=== PATIENT | female | born 1960 | race Caucasian/White ===

== ENCOUNTER 2016-07-10 11:26 | Inpatient (IN) ==
[2016-07-10] MEDS ORDERED: DUONEB (A & A) INH ONE ×2 (12:03→12:04)
[2016-07-10] MEDS ORDERED: SOLU-MEDROL IV ONE (12:10)
[2016-07-10] MEDS ORDERED: LASIX IV ONE (12:51)
--- NOTE | 2016-07-10 12:55 | PROVIDER DOCUMENTATION ---
HPI-Cardiac General - General Chief Complaint: Cough Stated Complaint: COUGH Time Seen by Provider: 07/10/16 11:41 Source: patient Allergies/Adverse Reactions: Patient Allergies Allergy/AdvReac Type Severity Reaction Status Date / Time levofloxacin [From Levaquin] Allergy Intermediate RASH Verified 07/10/16 11:51 NSAIDS (Non-Steroidal Allergy Unknown Unknown Verified 07/10/16 11:51 Anti-Inflamma morphine AdvReac Mild HENSLEY Verified 07/10/16 11:51 Home Medications: Carvedilol 12.5 mg PO BID 03/11/14 Clopidogrel Bisulfate [Clopidogrel] 75 mg PO DAILY 03/11/14 Isosorbide Mononitrate [Imdur] 30 mg PO QHS 03/11/14 Pantoprazole [Protonix] 40 mg PO QHS 03/11/14 ENALApril [Vasotec] 10 mg PO QHS 07/20/14 ATORVAstatin [Lipitor] 80 mg PO QHS 08/14/15 Clonazepam [Klonopin] 1 mg PO TID 08/15/15 Furosemide [Lasix] 20 mg PO DAILY 08/15/15 Albuterol 2.5MG/Ipratrop 0.5MG [Duoneb (A & A)] 3 ml INH TID 11/14/15 Warfarin [Coumadin] 5 mg PO QHS 11/14/15 - History of Present Illness-Cardiac Nature of Presenting Problem: 55 yo WF brought by EMS with marked SOB , wheezing, and and orthopnea. PMH significant for 2-3 ppd smoking, IHD and CHF Location: reports: substernal Quality of Pain: reports: none Severity in ED: severe Onset/Duration: 4-6 hours ago Timing: still present Context/Activities at Onset: reports: none Modifying Factors: improves with: nothing History of arrythmia: reports: none Prior Chest Pain/Cardiac Workup: reports: echocardiography. denies: pulmonary embolism, stress test Associated Symptoms: reports: shortness of breath. denies: abdominal pain, back pain, diaphoresis, edema, fever/chills, nausea Similar Symptoms Previously?: Yes Recently Seen Here or By Another Healthcare Provider: Yes (Placed on Cipro 3 days) Review of Systems - Adult - REVIEW OF SYSTEMS - ADULT Constitutional: reports: fatique Eyes: reports: no symptoms reported Ears, Nose, Mouth & Throat: reports: no symptoms reported Cardiovascular: reports: see HPI Respiratory: reports: see HPI Gastrointestinal: reports: no symptoms reported Genitourinary: reports: no symptoms reported Musculoskeletal: reports: no symptoms reported Integumentary: reports: no symptoms reported Neurological: reports: no symptoms reported Psychiatric: reports: no symptoms reported Endocrine: reports: no symptoms reported Hematologic/Lymphatic: reports: no symptoms reported Allergic/Immunologic: reports: no symptoms reported Past History - Adult - PAST MEDICAL HISTORY-ADULT Major Childhood Illnesses: reports: denies history Cardiovascular: reports: CHF, HTN, hyperlipidemia, [place] Respiratory: reports: asthma, COPD, sleep apnea Gastrointestinal: reports: GERD Obstetrical/Gynecological: reports: denies history Genitourinary: reports: denies history Musculoskeletal: reports: chronic pain (back) Neurological: reports: CVA Psychiatric: reports: anxiety Endocrine/Immune: reports: denies history Other Conditions: reports: denies history - PRIOR SURGERIES/PROCEDURES Surgical/Procedure History: reports: appendectomy, cholecystectomy, other ( carotid artery Sx. renal stent) - PRIOR HOSPITALIZATIONS Prior Hospitalizations: reports: for similar symptoms - IMMUNIZATION STATUS Childhood Immunizations: See Nurse Assessment Flu Vaccine: See Nurse Assessment - FAMILY HISTORY Family History: reviewed, not pertinent Physical Exam-General - PHYSICAL EXAM-ADULT Initial Vital Signs Reviewed: Yes - CONSTITUTIONAL General Appearance: severe distress, obese - EYES Eyes: PERRL/EOMI - HEAD, EARS, NOSE, MOUTH & THROAT HENMT: normocephalic/atraumatic, moist mucous membranes - NECK Neck: non-tender, full range of motion - RESPIRATORY Respiratory: chest non-tender, respiratory distress, rales, wheezing. negative : normal breath sounds - CARDIOVASCULAR Cardiovascular: normal peripheral pulses, regular rate, rhythm - CHEST (BREASTS) Chest/Breast: deferred - GASTROINTESTINAL (ABDOMEN) Abdominal Exam: normal bowel sounds, non tender - GENITOURINARY Female Genitalia/Pelvic Exam: deferred Male Genitalia: deferred Rectal Exam: deferred - LYMPHATIC Lymphatic: no adenopathy - MUSCULOSKELETAL Back Exam: normal inspection Extremity: normal range of motion - SKIN Integumentary: normal color - NEUROLOGIC Neurologic: grossly normal - PSYCHIATRIC Psych/Mental Status: normal mood/affect Departure - Departure Time of Disposition Order: 18:05 DIAGNOSIS: Tobacco abuse, Hypoxemia Respiratory failure with hypercapnia Qualifiers: Chronicity: acute on chronic Qualified Code(s): J96.22 - Acute and chronic respiratory failure with hypercapnia Disposition: ADMITTED INPATIENT 09 Certified Medical Emergency: Emergent Condition: Fair
[2016-07-10 12:56] LABS: MANUAL DIFF NEEDED? NO
[2016-07-10 13:07] LABS: BASO% 0.2 % (0.0-0.8); EOS# 0.08 X1000 (0.0-0.7); EOS% 0.7 % (0.0-10.0); HEMATOCRIT 42.5 % (37.0-47.0); HEMOGLOBIN 13.2 g/dL (12.0-16.0); LYMPH# 1.11 X1000 (1.2-3.4); LYMPH% 9.9 % (20.5-51.1); MCH 29.5 PG (27-31); MCHC 31.1 g/dL (33-37); MCV 94.9 FL (81-99); MONO# 0.75 X1000 (0.11-0.59); MONO% 6.7 % (1.7-9.3); MPV 11.6 FL (7.4-10.4); NEUT% 82.5 % (42.2-75.2); PLT 196 X1000 (130-400); RBC 4.48 XMIL (4.2-5.4)
[2016-07-10 13:19] LABS: AGAP 13; BUN 11 mg/dL (8-22); CALCIUM 9.2 mg/dL (8.8-10.2); CHLORIDE 100 mmol/L (98-107); COSMO 279; POTASSIUM 4.5 mmol/L (3.5-5.1); SODIUM 140 mmol/L (136-145); TCO2 27 mmol/L (25-35)
[2016-07-10] MEDS ORDERED: ROCEPHIN 2 GM/NS 50 ML IV ONE (14:01)
[2016-07-10] MEDS ORDERED: ZITHROMAX 500 MG/NS 250 ML IV SCH (14:15)
[2016-07-10] MEDS ORDERED: ZITHROMAX 500 MG/NS 250 ML IV ONE (15:00)
--- NOTE | 2016-07-10 15:00 | HISTORY AND PHYSICAL ---
HISTORY OF PRESENT ILLNESS: Ms. Gregory has a history of COPD on home O2 that she has been on for several years, a long history of tobacco. She has coronary artery disease and apparently has had 2 myocardial infarctions. She says she has had 3 strokes, but no residuals. Denies diabetes. Gives history of hypertension, hypercholesterolemia. No surgical history that she reports. She appears to have history of anxiety. Looking back at old records, she apparently has obstructive sleep apnea as well and has had a sleep study. ALLERGIES: She is allergic to quinolones, which cause a rash. FAMILY HISTORY: Both her mother and father apparently had emphysema. Does not drink alcohol. She smokes, but has recently quit. REVIEW OF SYSTEMS: General: She has intensely lost weight this year. Reports that the last 3 days she has had increased shortness of breath, increased wheezing and feels like she has had fever and chills. HEENT: Unremarkable. Respiratory: As above. On home O2, but these last 3 days have been worse. Cardiovascular: She feels like she has had some swelling in her feet. Feels like she has some increased orthopnea. She was breathing fairly comfortably laying on her side. GI/: No complaints. Endocrinologic/Hematologic: No history of complaints. PHYSICAL EXAM: VITAL SIGNS: Today in the emergency room temperature 98.2 degrees, pulse 106, respirations 20, blood pressure 155/91. CVP was about 8 cm water pressure. I did not appreciate hepatojugular reflux. LUNGS: With end expiratory wheezing throughout the lung acosta. Prolonged expiratory phase. CARDIOVASCULAR EXAM: Regular rhythm and rate without murmur or S3. PMI nondisplaced. ABDOMEN: Soft, nontender, nondistended. SKIN: Warm and dry. She has some areas of sores that appear consistent with prurigo and old places that healed on her arms. LABS: White count 11,240, hematocrit 42, platelet count 196,000. Sodium 140, potassium 4.5, chloride 100, bicarbonate 27, BUN 11, creatinine 0.8, calcium 9.2. ProBNP was 2605. X-RAYS: Chest x-ray with evidence of COPD. There is a question whether there is an infiltrate. Can see some interstitial thickening. Question whether there is a right lower lobe infiltrate as well. ASSESSMENT AND PLAN: 1. Chronic obstructive pulmonary disease exacerbation. Bronchitis. Possible pneumonia. So, will treat for bronchial pneumonia. We will put her on some Solu-Medrol. We will use Rocephin and azithromycin. Will put her on nebulized breathing treatments, as well as steroid inhaler. 2. History of underlying coronary artery disease. Aware. I have looked at old studies. I have had a pulmonary arteriogram done in October 2013 with chronic obstructive pulmonary disease. At that time had some atelectasis in left lower lobe. She has had an echocardiogram done in August 2015 and normal left ventricular size. Ejection fraction was 40% to 45%. The mitral valve and tricuspid valve were okay. Aortic valve looked okay, so no valvular dysfunction. Did not see any evidence of right ventricular hypertension. 3. She has had some cerebrovascular accidents in the past. No residual. 4. Hypertension. Note that even though the proBNP is elevated, this appears to be more consistent with bronchospasm than bronchitis with exacerbation of chronic obstructive pulmonary disease. MEDICATIONS: Review of medications from home: She is on atorvastatin 80 mg at bedtime. She takes DuoNebs, carvedilol 12.5 p.o. b.i.d., Klonopin 1 mg t.i.d., Plavix 75 mg a day, Vasotec 10 mg at bedtime, Lasix 20 mg daily, hydrocodone 10/325 q. 6 hours p.r.n., isosorbide mononitrate 30 mg at bedtime, Protonix 40 mg at bedtime, and Coumadin 5 mg at bedtime. I am not sure of the reason of Coumadin; possibly history of deep venous thrombosis, but she also could have underlying history of atrial fibrillation. She is also on Plavix. So, we will check her pro time, continue to follow and continue the Coumadin.
--- NOTE | 2016-07-10 15:11 | Diag Imaging Result Document ---
PROCEDURE NAME: CHEST-PORTABLE - 07/10/2016 SINGLE FRONTAL RADIOGRAPH OF THE CHEST: COMPARISON: 03/28/2016. FINDINGS: There is diffuse infiltrate throughout the left lung and milder infiltrate at the right lung base likely representing interstitial edema with or without pneumonia. There is no definite pleural fluid collection. Cardiac silhouette is stable. IMPRESSION: Bilateral predominantly interstitial consolidations, more prominent on the left.
[2016-07-10] MEDS ORDERED: ZOFRAN IV PRN (15:59)
[2016-07-10] MEDS: XOPENEX NEB INH SCH ×3 (15:59→22:45)
[2016-07-10] MEDS ORDERED: TYLENOL PO PRN (15:59)
[2016-07-10] MEDS ORDERED: LOVENOX SUBQ SCH (15:59)
[2016-07-10] MEDS: KLONOPIN PO SCH (16:58)
[2016-07-10] MEDS: NICODERM PATCH TD SCH (17:07)
[2016-07-10 17:53] LABS: INR 3.76; PROTIME 40.4 Seconds (9.2-11.7)
[2016-07-10] MEDS ORDERED: MAGNESIUM SULFATE 2 GM/S.W.I. 50 ML IV ONE (18:31)
[2016-07-10] MEDS: ADVAIR 250/50 DISKUS INH SCH (20:09)
[2016-07-10] MEDS: SOLU-MEDROL IV SCH (20:48)
[2016-07-10] MEDS: IMDUR PO SCH (20:48)
[2016-07-10] MEDS: PROTONIX PO SCH (20:49)
[2016-07-10] MEDS: LIPITOR PO SCH (20:49)
[2016-07-10] MEDS: COREG PO SCH (20:49)
[2016-07-10] MEDS: VASOTEC PO SCH (20:49)
[2016-07-10] MEDS ORDERED: COUMADIN PO SCH (21:00)
[2016-07-11] MEDS: NORCO-10 PO PRN ×3 (00:51→22:09)
[2016-07-11] MEDS: XOPENEX NEB INH SCH ×6 (03:54→22:48)
[2016-07-11] MEDS: SOLU-MEDROL IV SCH ×3 (05:07→22:02)
[2016-07-11 05:14] LABS: ALLEN TEST YES; BE 5.1 mmoll (-3.0-3.0); BLOOD TYPE ARTERIAL; DRAW SITE R RADIAL; METHB 1.2 % (0.0-1.5); O2(CT) 12.1 mL/dL (15.0-23.0); PCO2(98.6) 48 mmHg (35-45); PO2(98.6) 76 mmHg (60-100); SAMPLE BLOOD; SAO2 96.2 % (95.0-100.0); THB 9.1 g/dL (11.5-17.4); pH(98.6) 7.41 (7.35-7.45)
[2016-07-11 05:18] LABS: MODALITY CANNULA
[2016-07-11] MEDS: PROTONIX PO SCH ×2 (06:44→22:03)
[2016-07-11 06:50] LABS: HEMATOCRIT 37.1 % (37.0-47.0); HEMOGLOBIN 11.5 g/dL (12.0-16.0); IMM GRAN# 0.03 X1000 (0.0-0.04); IMM GRAN% 0.3 % (0.0-0.5); LYMPH# 0.68 X1000 (1.2-3.4); LYMPH% 6.6 % (20.5-51.1); MANUAL DIFF NEEDED? YES; MCH 28.8 PG (27-31); MCV 92.8 FL (81-99); MONO# 0.17 X1000 (0.11-0.59); MONO% 1.6 % (1.7-9.3); MPV 11.2 FL (7.4-10.4); NEUT% 91.5 % (42.2-75.2); PLT 229 X1000 (130-400)
[2016-07-11 07:05] LABS: AGAP 13; ALBUMIN 3.2 g/dL (3.5-5.0); ALKALINE PHOSPHATASE 70 U/L (32-104); BUN 14 mg/dL (8-22); CHLORIDE 101 mmol/L (98-107); COSMO 282; GOT 8 U/L (10-30); GPT 6 U/L (10-36); INR 2.79; MAGNESIUM 1.8 mg/dL (1.5-2.7); POTASSIUM 4.2 mmol/L (3.5-5.1); PROTIME 29.9 Seconds (9.2-11.7); SODIUM 139 mmol/L (136-145); TCO2 25 mmol/L (25-35); TOTAL BILIRUBIN 0.44 mg/dL (0.20-1.00); TOTAL PROTEIN 6.9 g/dL (6.3-8.3)
[2016-07-11 07:23] LABS: FREE T4 1.12 ng/dL (0.93-1.70)
[2016-07-11 07:30] LABS: BANDS 1 % (0-1); LYMPHS 6 % (21-51); MONO 2 % (1-9)
[2016-07-11] MEDS: ADVAIR 250/50 DISKUS INH SCH ×2 (08:11→19:41)
[2016-07-11] MEDS: PLAVIX PO SCH (08:39)
[2016-07-11] MEDS: KLONOPIN PO SCH ×3 (08:39→16:31)
[2016-07-11] MEDS: COREG PO SCH ×2 (08:39→22:03)
[2016-07-11] MEDS: LASIX PO SCH (08:39)
[2016-07-11] MEDS: NICODERM PATCH TD SCH (08:39)
[2016-07-11] MEDS ORDERED: ROCEPHIN 1 GM/NS 50 ML IV SCH (14:15)
[2016-07-11] MEDS ORDERED: ZITHROMAX 500 MG/NS 250 ML IV SCH (15:00)
[2016-07-11] MEDS ORDERED: LEVAQUIN 750 MG/D5W 150 ML IV SCH (16:00)
--- NOTE | 2016-07-11 16:13 | PROGRESS NOTE ---
DATE: 07/11/2016 SUBJECTIVE: The patient states that she is feeling better, but she is still with mild shortness of breath. OBJECTIVE: Vital Signs: Temperature 97.6 degrees, pulse 84, respiratory rate 20, blood pressure 104/48, oxygen saturation 94% on nasal cannula. HEENT: Head normocephalic. No trauma. PERRLA. Neck: Supple. No JVD. No masses. Cardiovascular: RRR. No murmurs. No gallops. No rubs. Chest: Decreased breath sounds globally. She has rales bilaterally at the bases. Scattered end expiratory wheezing and prolonged expiratory phase. Abdomen: Soft, nontender, nondistended. Obese. Skin: Warm and dry. No lesions. Neurological examination: Alert and oriented x3. No focal lesions. LABORATORY: WBC 10, hemoglobin 11.5, hematocrit 37.1, platelets 229. Sodium 139, potassium 4.2, chloride 101, bicarbonate 25, BUN 14, creatinine 0.7, glucose 166. Calcium 9, phosphorus 2.9, magnesium 1.8, albumin 3.2. ASSESSMENT AND PLAN: 1. Chronic obstructive pulmonary disease exacerbation. I am going to continue with nebulizers, continue with steroids and oxygen. Will monitor. 2. Bilateral lower lobe pneumonia. I will continue with ceftriaxone and azithromycin. 3. History of coronary artery disease to monitor. She is not complaining of chest pain at this moment. 4. Congestive heart failure without exacerbation. The last echocardiogram showed an ejection fraction of 40% to 45%. Will monitor. 5. Questionable cerebrovascular accident in the past, no residual lesions. We will monitor. 6. Hypertension. The blood pressure is within the normal limits. We will monitor. This patient is doing a little bit better, we will continue for now with the same treatment, I will add warfarin to her medications (she is on 5 daily). We will monitor the INR.
--- NOTE | 2016-07-11 19:56 | Diag Imaging Result Document ---
PROCEDURE NAME: CHEST-2 VIEWS - 07/11/2016 CHEST 2 VIEWS: COMPARISON: Compared with portable exam of 07/10/2016. FINDINGS: Heart size appears upper normal and stable. There has been mild increase in infiltrate at right base. There has been interval decrease in infiltrates elsewhere. There is some residual ill-defined infiltrate at the mid and lower lung on the left. There is no substantial pleural effusion or pneumothorax identified. IMPRESSION: Mild increase in infiltrate at right base. Decrease in infiltrates elsewhere.
[2016-07-11] MEDS ORDERED: COUMADIN PO SCH (21:00)
[2016-07-11] MEDS: VASOTEC PO SCH (22:03)
[2016-07-11] MEDS: IMDUR PO SCH (22:03)
[2016-07-11] MEDS: LIPITOR PO SCH (22:03)
[2016-07-12] MEDS: SOLU-MEDROL IV SCH (03:27)
[2016-07-12] MEDS: XOPENEX NEB INH SCH ×2 (04:15→07:46)
[2016-07-12] MEDS: NORCO-10 PO PRN (06:19)
[2016-07-12] MEDS: PROTONIX PO SCH (06:19)
[2016-07-12 07:37] LABS: HEMATOCRIT 38.3 % (37.0-47.0); IMM GRAN# 0.03 X1000 (0.0-0.04); IMM GRAN% 0.2 % (0.0-0.5); INR 2.75; LYMPH# 0.96 X1000 (1.2-3.4); MANUAL DIFF NEEDED? YES; MCH 29.1 PG (27-31); MCHC 31.3 g/dL (33-37); MONO# 0.49 X1000 (0.11-0.59); MONO% 3.1 % (1.7-9.3); NEUT% 90.7 % (42.2-75.2); PLT 291 X1000 (130-400); PROTIME 29.4 Seconds (9.2-11.7); RBC 4.12 XMIL (4.2-5.4)
[2016-07-12 07:46] VITALS: BP 135/51
[2016-07-12] MEDS: ADVAIR 250/50 DISKUS INH SCH (07:46)
[2016-07-12 07:51] LABS: AGAP 16; BUN 23 mg/dL (8-22); CALCIUM 9.4 mg/dL (8.8-10.2); CHLORIDE 96 mmol/L (98-107); COSMO 280; POTASSIUM 4.4 mmol/L (3.5-5.1); SODIUM 136 mmol/L (136-145); TCO2 24 mmol/L (25-35)
[2016-07-12] MEDS ORDERED: ZOSYN 3.375 GM/NS 50 ML IV SCH (08:00)
[2016-07-12 08:34] LABS: BANDS 2 % (0-1); LYMPHS 4 % (21-51); MONO 4 % (1-9)
[2016-07-12] MEDS: PLAVIX PO SCH (09:09)
[2016-07-12] MEDS: KLONOPIN PO SCH (09:09)
[2016-07-12] MEDS: NICODERM PATCH TD SCH ×2 (09:09→09:31)
[2016-07-12] MEDS: COREG PO SCH (09:09)
[2016-07-12] MEDS: LASIX PO SCH (09:09)
--- NOTE | 2016-07-12 18:10 | DISCHARGE SUMMARY ---
ADMISSION DATE: 07/10/2016 DISCHARGE DATE: 07/12/2016 SUBJECTIVE: I received a call from the nurse stating that stating that this patient wants to go against medical advice. The nurse told me that even though she explained the risks of doing that she decided to go home. When I went to the room this patient was already done. Vital signs at 7:46 a.m. temperature 97.9 degrees, pulse 70, respiratory rate 22, blood pressure 135/51. O2 saturation 98 on room air. LABORATORY: WBC 15.8, hemoglobin 12, hematocrit 38.3. Platelet 291,000. Sodium 136, potassium 4.4, chloride 96, bicarbonate 24, BUN 23, creatinine 0.9. Glucose 178. Calcium 9.4. DIAGNOSES: 1. Chronic obstructive pulmonary disease exacerbation. This patient was getting nebulizers, steroids and oxygen. 2. Bilateral lower lobe pneumonia. She was getting antibiotics. 3. History of coronary artery disease. 4. Congestive heart failure without exacerbation. 5. Questionable cerebrovascular accident in the past with no residual lesions. 6. Hypertension. Stable. This patient left AMA. When I had the opportunity to go to the room she already left.
== END 2016-07-12 09:33 | disposition home or self-care (01) | DRG 190 ==
LOC: ED 11:26 → EDIPHOLD 15:03 → 3N 18:16
PROVIDERS: ATTEND Internal Medicine
DX: J44.0 Chronic obstructive pulmonary disease with (acute) lower respiratory infection (principal); J18.9 Pneumonia, unspecified organism; J96.21 Acute and chronic respiratory failure with hypoxia; I11.0 Hypertensive heart disease with heart failure; I50.22 Chronic systolic (congestive) heart failure; Z99.81 Dependence on supplemental oxygen; J96.22 Acute and chronic respiratory failure with hypercapnia; J44.1 Chronic obstructive pulmonary disease with (acute) exacerbation; I25.10 Atherosclerotic heart disease of native coronary artery without angina pectoris; I25.2 Old myocardial infarction; J45.909 Unspecified asthma, uncomplicated; E78.00 Pure hypercholesterolemia, unspecified; K21.9 Gastro-esophageal reflux disease without esophagitis; G47.33 Obstructive sleep apnea (adult) (pediatric); Z79.899 Other long term (current) drug therapy; Z79.02 Long term (current) use of antithrombotics/antiplatelets; Z79.01 Long term (current) use of anticoagulants; Z86.73 Personal history of transient ischemic attack (TIA), and cerebral infarction without residual deficits; Z87.891 Personal history of nicotine dependence
CPT/HCPCS: 71010; 71020; 80048; 80053; 80061; 82607; 82746; 82805; 83036; 83721; 83735; 83880; 84100; 84439; 84443; 85025; 85610; 94640; 94761; 94799; 96365; 96366; 96367; 96372; 96375; J0456; J0696; J1650; J1940; J2930; J3475

== ENCOUNTER 2016-09-02 00:25 | Inpatient (IN) ==
[2016-09-02] MEDS ORDERED: DUONEB (A & A) INH ONE (00:36)
[2016-09-02] MEDS ORDERED: SOLU-MEDROL IV ONE (00:48)
[2016-09-02 00:53] LABS: MANUAL DIFF NEEDED? NO
[2016-09-02 00:56] LABS: BASO% 0.4 % (0.0-0.8); EOS# 0.21 X1000 (0.0-0.7); EOS% 2.2 % (0.0-10.0); HEMATOCRIT 42.8 % (37.0-47.0); HEMOGLOBIN 13.3 g/dL (12.0-16.0); IMM GRAN# 0.03 X1000 (0.0-0.04); IMM GRAN% 0.3 % (0.0-0.5); LYMPH# 1.55 X1000 (1.2-3.4); LYMPH% 15.9 % (20.5-51.1); MCH 29.4 PG (27-31); MCHC 31.1 g/dL (33-37); MCV 94.7 FL (81-99); MONO# 0.54 X1000 (0.11-0.59); MONO% 5.6 % (1.7-9.3); MPV 12.1 FL (7.4-10.4); NEUT% 75.6 % (42.2-75.2); PLT 178 X1000 (130-400); RBC 4.52 XMIL (4.2-5.4)
[2016-09-02 01:16] LABS: CALCIUM 9.1 mg/dL (8.8-10.2); MAGNESIUM 1.5 mg/dL (1.5-2.7); POTASSIUM 3.8 mmol/L (3.5-5.1); TOTAL BILIRUBIN 0.3 mg/dL (0.20-1.00); TOTAL PROTEIN 7.6 g/dL (6.3-8.3)
--- NOTE | 2016-09-02 01:19 | PROVIDER DOCUMENTATION ---
HPI-Respiratory General - General Source: patient <Sabrina Hutton - Last Filed: 09/02/16 02:19> <Domingo García - Last Filed: 09/02/16 02:28> - General Chief Complaint: Shortness of Breath Stated Complaint: shortness of breath Time Seen by Provider: 09/02/16 00:41 Allergies/Adverse Reactions: Patient Allergies Allergy/AdvReac Type Severity Reaction Status Date / Time levofloxacin [From Levaquin] Allergy Intermediate RASH Verified 09/02/16 00:32 NSAIDS (Non-Steroidal Allergy Unknown Unknown Verified 09/02/16 00:32 Anti-Inflamma morphine AdvReac Mild HENSLEY Verified 09/02/16 00:32 Home Medications: Home Medication List Medication Instructions Recorded Confirmed Last Taken Type Carvedilol 12.5 mg PO BID 03/11/14 09/02/16 09/01/16 History Clopidogrel Bisulfate [Clopidogrel] 75 mg PO DAILY 03/11/14 09/02/16 09/01/16 History Isosorbide Mononitrate [Imdur] 30 mg PO QHS 03/11/14 09/02/16 09/01/16 History Pantoprazole [Protonix] 40 mg PO QHS 03/11/14 09/02/16 09/01/16 History ENALApril [Vasotec] 10 mg PO QHS 07/20/14 09/02/16 09/01/16 History ATORVAstatin [Lipitor] 80 mg PO QHS 08/14/15 09/02/16 09/01/16 History Clonazepam [Klonopin] 1 mg PO TID 08/15/15 09/02/16 09/01/16 History Furosemide [Lasix] 20 mg PO DAILY 08/15/15 09/02/16 09/01/16 History Albuterol 2.5MG/Ipratrop 0.5MG 3 ml INH TID 11/14/15 09/02/16 09/02/16 History [Duoneb (A & A)] Warfarin [Coumadin] 5 mg PO QHS 11/14/15 09/02/16 09/01/16 History - History of Present Illness-Resp Nature of Presenting Problem: 55 year old F presents to the ED with a cc of shortness of breath. Pt states that she began noticing it 2 days ago. Pt states that she took all of her medications and breathing treatments with no relief. Pt states she has a hx of COPD. (Sabrina Huttno) Review of Systems - Adult - REVIEW OF SYSTEMS - ADULT Constitutional: reports: see HPI, chills Eyes: reports: no symptoms reported Ears, Nose, Mouth & Throat: reports: no symptoms reported Cardiovascular: denies: chest pain Respiratory: reports: see HPI, cough, shortness of breath, wheezing Gastrointestinal: reports: no symptoms reported Genitourinary: reports: no symptoms reported Musculoskeletal: reports: no symptoms reported Integumentary: reports: no symptoms reported Neurological: reports: no symptoms reported Psychiatric: reports: no symptoms reported Endocrine: reports: no symptoms reported Hematologic/Lymphatic: reports: no symptoms reported Allergic/Immunologic: reports: no symptoms reported All Other Systems: Reviewed and Negative <Domingo García - Last Filed: 09/02/16 02:28> Past History - Adult - PAST MEDICAL HISTORY-ADULT Major Childhood Illnesses: reports: denies history Cardiovascular: reports: CHF, HTN, hyperlipidemia, [place] Respiratory: reports: asthma, COPD, sleep apnea Gastrointestinal: reports: GERD Obstetrical/Gynecological: reports: denies history Genitourinary: reports: denies history Musculoskeletal: reports: chronic pain (back) Neurological: reports: CVA Psychiatric: reports: anxiety Endocrine/Immune: reports: denies history Other Conditions: reports: denies history - PRIOR SURGERIES/PROCEDURES Surgical/Procedure History: reports: appendectomy, cholecystectomy, other ( carotid artery Sx. renal stent) - PRIOR HOSPITALIZATIONS Prior Hospitalizations: reports: for similar symptoms - IMMUNIZATION STATUS Childhood Immunizations: See Nurse Assessment Flu Vaccine: See Nurse Assessment - FAMILY HISTORY Family History: reviewed, not pertinent <Sabrina Hutton - Last Filed: 09/02/16 02:19> - PAST MEDICAL HISTORY-ADULT Review of Records: reports: Old Records Reviewed, Nursing Assessment Review, Medications Reviewed, Social history reviewed & non-contributory. Major Childhood Illnesses: reports: denies history Cardiovascular: reports: CHF Respiratory: reports: COPD, pneumonia <Domingo García - Last Filed: 09/02/16 02:28> Physical Exam-General - PHYSICAL EXAM-ADULT Initial Vital Signs Reviewed: Yes - CONSTITUTIONAL General Appearance: alert, mild distress - RESPIRATORY Respiratory: chest non-tender, decreased breath sounds, rhonchi, wheezing - CARDIOVASCULAR Cardiovascular: normal peripheral pulses, regular rate, rhythm, no edema - GASTROINTESTINAL (ABDOMEN) Abdominal Exam: non tender, soft - MUSCULOSKELETAL Extremity: normal inspection - SKIN Integumentary: normal color, normal turgor, warm/dry - PSYCHIATRIC Psych/Mental Status: normal mood/affect, normal thought content, normal thought process, oriented x 3 <Sabrina Hutton - Last Filed: 09/02/16 02:19> Progress - EKG 1 Time of EKG reading by physician:: 01:06 EKG Read and Signed by:: Domingo García EKG Interpretation (*Must complete 3 of following elements*): Abnormal Rate: 101 Rhythm: sinus tachycardia Kincaid: normal Comments: can not rule out anterior infarct, age undetermined - XRAY 1 XRAY Study: Chest Impression: Abnormal XRAY Interpretation: bilateral lower lobe infiltrates: Dr. García-ER <Sabrina Hutton - Last Filed: 09/02/16 02:19> - CONSULTS/PCP/HOSPITALIST Notification #1 *Consult/PCP/Hospitalist*: Dr. Denis, hospitalist Time Discussed: 02:25 Consult Disposition: Admit <Domingo García - Last Filed: 09/02/16 02:28> Departure <Sabrina Hutton - Last Filed: 09/02/16 02:19> - Departure Time of Disposition Order: 02:27 Certified Medical Emergency: Emergent <Domingo García - Last Filed: 09/02/16 02:28> - Departure DIAGNOSIS: COPD exacerbation, Hypoxemia Bilateral pneumonia Qualifiers: Pneumonia type: due to unspecified organism Lung location: lower lobe of lung Qualified Code(s): J18.9 - Pneumonia, unspecified organism Disposition: ADMITTED INPATIENT 09 Condition: Stable Referrals: None,PCP [Primary Care Provider] - Attestation - Scribe Verification/Attestation Scribe:: Sabrina Hutton Acting as Scribe for:: Domingo García Scribandrés documention review:: This chart was documented by a scribe and accurately reflects the service the provider performed and the decisions made by the provider. <Sabrina Hutton - Last Filed: 09/02/16 02:19> Physician Attestation - Physician Attestation I, the provider, attest to the following statement:: Domingo García Physician documentation Attestation:: This documentation recorded by the scribe accurately reflects the service I personally performed and the decisions made by me. <Sabrina Hutton - Last Filed: 09/02/16 02:19>
[2016-09-02 02:10] LABS: INR 2.95 (0.86-1.15); PROTIME 30.6 Seconds (12.1-15.5)
[2016-09-02 02:11] LABS: PTT PL 44.5 Seconds (22.6-43.9)
[2016-09-02] MEDS ORDERED: NORCO-10 PO ONE (02:16)
[2016-09-02] MEDS ORDERED: ROCEPHIN 1 GM/NS 50 ML IV STA (02:17)
[2016-09-02] MEDS ORDERED: ZOFRAN IV PRN (02:29)
[2016-09-02] MEDS ORDERED: ZITHROMAX 500 MG/NS 250 ML IV ONE (02:30)
--- NOTE | 2016-09-02 05:08 | EKG Report ---
Test Performed on : 09/02/2016 01:06:22 AM Test Reason : CHEST PAIN Blood Pressure : / mmHG Vent. Rate : 101 BPM Atrial Rate : 101 BPM P-R Int : 148 ms QRS Dur : 092 ms QT Int : 358 ms P-R-T Axes : 058 087 018 degrees QTc Int : 464 ms Sinus tachycardia. Cannot rule out Inferior infarct , age undetermined Abnormal ECG When compared with ECG of 27-MAR-2016 15:41, No significant change was found Unconfirmed Result
[2016-09-02] MEDS: DUONEB (A & A) INH SCH ×6 (05:16→22:41)
[2016-09-02] MEDS: MORPHINE IV PRN ×2 (05:32→08:00)
[2016-09-02] MEDS: SOLU-MEDROL IV SCH ×3 (07:56→22:33)
[2016-09-02] MEDS ORDERED: SOLU-MEDROL IV SCH (08:00)
--- NOTE | 2016-09-02 08:21 | Diag Imaging Result Document ---
PROCEDURE NAME: CHEST-2 VIEWS - 09/02/2016 FRONTAL AND LATERAL CHEST, TWO VIEWS: COMPARISON: 07/11/2016. FINDINGS: The lungs are well expanded. The heart is not enlarged. No pleural effusions. There are increased interstitial markings in the mid and lower lungs. These are slightly less pronounced than on the prior study. IMPRESSION: Mild interval improvement.
[2016-09-02] MEDS: PLAVIX PO SCH (16:19)
[2016-09-02] MEDS: DEMEROL IV PRN ×2 (16:28→20:48)
[2016-09-02] MEDS: COREG PO SCH ×2 (19:55→20:10)
[2016-09-02] MEDS: LIPITOR PO SCH ×2 (19:55→20:10)
[2016-09-02] MEDS: PROTONIX PO SCH ×2 (19:55→20:10)
[2016-09-02] MEDS: VASOTEC PO SCH ×2 (19:55→20:10)
[2016-09-02] MEDS: IMDUR PO SCH ×2 (19:55→20:10)
[2016-09-02] MEDS: COUMADIN PO SCH ×2 (19:56→20:10)
--- NOTE | 2016-09-02 21:00 | HISTORY AND PHYSICAL ---
CHIEF COMPLAINT: Shortness of breath for 2 days that had progressively worsened. HISTORY OF PRESENTING ILLNESS: This is a 55-year-old female who presented to [facility] with complaints of shortness of breath for 2 days that had progressively worsened. Her chest x-ray per ER physician interpretation showed bilateral lower lobe infiltrates. She was noted to have an O2 saturation on room air of 84% on arrival. She was placed on 3 L via nasal cannula and is currently saturating 99% but she was admitted for further evaluation and treatment. PAST MEDICAL HISTORY: COPD with home O2 use, coronary artery disease, [place] x2, CVA x3, CHF, GERD, hypertension, hyperlipidemia, anxiety and obstructive sleep apnea. PAST SURGICAL HISTORY: Of an appendectomy, cholecystectomy, carotid artery surgery and a renal stent. FAMILY HISTORY: Her mom and dad both had emphysema. SOCIAL HISTORY: She currently lives with her . Has quit smoking recently but was a pack-a- day smoker prior to that. Denies any alcohol or illicit drug use. ALLERGIES: To Levaquin, NSAIDS and morphine. HOME MEDICATIONS: A and A neb inhalation t.i.d., Klonopin 1 mg p.o. t.i.d. both of those will be held, Lipitor 80 mg p.o. at bedtime, Coreg 12.5 mg p.o. b.i.d., Plavix 75 mg p.o. daily, Vasotec 10 mg p.o. at bedtime, Lasix 20 mg p.o. daily, Imdur 30 mg p.o. at bedtime, Protonix 40 mg p.o. at bedtime and Coumadin 5 mg p.o. at bedtime. LABORATORY DATA: Showed a white blood cell count of 9.72, hemoglobin 13.3, hematocrit 42.8, platelets 178,000. PT and INR of 30.6 and 2.95 with a D-dimer of 0.33. Sodium of 140, potassium 3.8, chloride 99, CO2 28, BUN of 19, creatinine 1, glucose 130, magnesium of 1.5, creatine kinase of 86 with a troponin of less than 0.010, pro BMP of 310. Chest x-ray per ER interpretation showed bilateral lower lobe infiltrate. Radiology read showed mild interval improvement. There are increased interstitial markings in the mid and lower lungs. These are slightly less pronounced than on her prior study. EKG showed sinus tachycardia at 101. REVIEW OF SYSTEMS: She was positive for productive cough, shortness of breath, wheezing. Denied any chest pain, abdominal pain, constipation, diarrhea, burning or hurting with urination. PHYSICAL EXAMINATION: VITAL SIGNS: On arrival she had a temperature of 98.2 degrees, a pulse of 112, respirations 24, blood pressure 176/87 and was saturating 84% on room air. Currently she has a temperature of 98.4 degrees, pulse 75, respirations 18, blood pressure 130/65, saturating 99% via nasal cannula. HEENT: Normocephalic and atraumatic. Pupils are equal, round, and reactive to light. Extraocular movements are intact. The oropharynx and nares are clear. NECK: Supple. LUNGS: With rhonchi and wheezing and decreased breath sounds to bilateral lower lobes, equal lung expansion and chest wall movement noted. HEART: With regular rate and rhythm. No murmurs, rubs, or gallops. ABDOMEN: Soft, nontender, nondistended. Bowel sounds are present x4 quadrants. EXTREMITIES: There is no clubbing, cyanosis or edema. NEUROLOGICAL: The cranial nerves 2-12 are grossly intact. ASSESSMENT: 1. Bilateral lower lobe pneumonia. 2. Acute respiratory failure. 3. An acute chronic obstructive pulmonary disease exacerbation. 4. Hypertension. PLAN: She was admitted to the medical unit at [facility]. Placed on healthy heart diet. Placed on Rocephin 1 gram IV q.24, azithromycin 500 mg IV q.24. We continued her home medications as identified, placed on Solu-Medrol 80 mg IV q.8. She was receiving morphine 2 mg IV q.2 hours p.r.n. but she was becoming oversedated and so we discontinued that. States that she was taking [place] 10 at home and we will verify that with her pharmacy before restarting. Will recheck a CBC, BMP and a PT with INR in the a.m. Dictated by RALPH Bailey for Jermaine Denis MD
[2016-09-03] MEDS: DEMEROL IV PRN ×2 (01:18→08:30)
[2016-09-03] MEDS: ROCEPHIN 1 GM/NS 50 ML IV SCH (02:17)
[2016-09-03] MEDS: ZITHROMAX 500 MG/NS 250 ML IV SCH (02:18)
[2016-09-03] MEDS: DUONEB (A & A) INH SCH ×6 (02:33→22:43)
[2016-09-03] MEDS: SOLU-MEDROL IV SCH ×2 (06:19→17:12)
[2016-09-03 06:21] LABS: BASO% 0.1 % (0.0-0.8); HEMATOCRIT 38.2 % (37.0-47.0); HEMOGLOBIN 11.6 g/dL (12.0-16.0); IMM GRAN# 0.04 X1000 (0.0-0.04); IMM GRAN% 0.3 % (0.0-0.5); LYMPH# 0.73 X1000 (1.2-3.4); MANUAL DIFF NEEDED? YES; MCH 28.6 PG (27-31); MCHC 30.4 g/dL (33-37); MCV 94.1 FL (81-99); MONO# 0.58 X1000 (0.11-0.59); MONO% 4.7 % (1.7-9.3); MPV 12.2 FL (7.4-10.4); NEUT% 88.9 % (42.2-75.2); PLT 180 X1000 (130-400); RBC 4.06 XMIL (4.2-5.4)
[2016-09-03 06:35] LABS: AGAP 11; BUN 20 mg/dL (8-22); CALCIUM 8.8 mg/dL (8.8-10.2); CHLORIDE 102 mmol/L (98-107); COSMO 281; POTASSIUM 4.8 mmol/L (3.5-5.1); SODIUM 138 mmol/L (136-145); TCO2 24 mmol/L (25-35)
[2016-09-03 06:38] LABS: INR 2.08 (0.86-1.15); PROTIME 23.5 Seconds (12.1-15.5)
[2016-09-03 07:18] LABS: LYMPHS 8 % (21-51); MONO 4 % (1-9)
[2016-09-03] MEDS: LASIX PO SCH (08:26)
[2016-09-03] MEDS: PLAVIX PO SCH (08:26)
[2016-09-03] MEDS: COREG PO SCH ×2 (08:27→20:47)
--- NOTE | 2016-09-03 11:21 | PROGRESS NOTE ---
DATE: 09/03/2016 SUBJECTIVE: Patient resting quietly in bed. No complaints voiced at this time. OBJECTIVE: Vital Signs: Temperature 98.0 degrees, pulse 82, respirations 20, blood pressure 108/70, saturating 97% on 2 L via nasal cannula. General: This is a 55-year- old female lying in the bed, resting quietly. HEENT: Normocephalic and atraumatic. Pupils are equal, round, reactive to light. Extraocular movements are intact. Oropharynx and nares are clear. Neck: Supple. Lungs: Clear to auscultation bilaterally with equal lung expansion and chest wall movement. Heart: With regular rate and rhythm. No murmurs, rubs, or gallops. Abdomen: Soft, nontender, nondistended. Bowel sounds are present x4 quadrants. Extremities: There is no clubbing, cyanosis, or edema. Neurological: The cranial nerves 2 through 12 are grossly intact. LABORATORY DATA: Showed a white blood cell count of 12.22, hemoglobin 11.6, hematocrit 38.2, platelets 180,000. PT and INR of 23.5 and 2.08. Sodium of 138, potassium 4.8, chloride 102, CO2 24, BUN of 20, creatinine 0.8, glucose 142. ASSESSMENT: 1. Bilateral lower lobe pneumonia. 2. Acute respiratory failure. 3. Acute chronic obstructive pulmonary disease exacerbation. 4. Hypertension. PLAN: We continue her antibiotics, DuoNeb q.4 hours. We will decrease her Solu -Medrol today to 60 mg IV q.12. We will continue her medication regimen and recheck a CBC, BMP, and an INR in the a.m. DISPOSITION: Likely home in the next 1-2 days. Dictated by RALPH Bailey for Jose Luis Zaragoza MD agree with above, overall improved, still with a lot of pain APENOT MTDD
[2016-09-03] MEDS ORDERED: DILAUDID IV PRN (15:01)
[2016-09-03] MEDS ORDERED: CHLORASEPTIC SPRAY MT PRN ×2 (18:51→18:55)
[2016-09-03] MEDS: IMDUR PO SCH (20:46)
[2016-09-03] MEDS: LIPITOR PO SCH (20:46)
[2016-09-03] MEDS: COUMADIN PO SCH (20:46)
[2016-09-03] MEDS: VASOTEC PO SCH (20:46)
[2016-09-03] MEDS: PROTONIX PO SCH (20:47)
[2016-09-03] MEDS: DILAUDID IV PRN (20:55)
[2016-09-04] MEDS: DILAUDID IV PRN ×6 (00:35→21:15)
[2016-09-04] MEDS ORDERED: NS 1,000 ML ONE (03:00)
[2016-09-04] MEDS: ROCEPHIN 1 GM/NS 50 ML IV SCH (03:07)
[2016-09-04] MEDS: DUONEB (A & A) INH SCH ×6 (03:15→22:43)
[2016-09-04] MEDS ORDERED: NS 500 ML IV SCH (03:45)
[2016-09-04] MEDS: ZITHROMAX 500 MG/NS 250 ML IV SCH (04:28)
[2016-09-04] MEDS: SOLU-MEDROL IV SCH ×2 (06:07→19:18)
[2016-09-04 06:29] LABS: MANUAL DIFF NEEDED? NO
[2016-09-04 06:37] LABS: BASO% 0.1 % (0.0-0.8); HEMATOCRIT 39.1 % (37.0-47.0); HEMOGLOBIN 11.9 g/dL (12.0-16.0); IMM GRAN# 0.04 X1000 (0.0-0.04); IMM GRAN% 0.3 % (0.0-0.5); LYMPH# 1.35 X1000 (1.2-3.4); LYMPH% 11.3 % (20.5-51.1); MCH 28.7 PG (27-31); MCHC 30.4 g/dL (33-37); MCV 94.2 FL (81-99); MONO# 0.48 X1000 (0.11-0.59); MPV 12.2 FL (7.4-10.4); NEUT% 84.3 % (42.2-75.2); PLT 203 X1000 (130-400); RBC 4.15 XMIL (4.2-5.4)
[2016-09-04 06:56] LABS: AGAP 13; BUN 20 mg/dL (8-22); CALCIUM 9.2 mg/dL (8.8-10.2); CHLORIDE 99 mmol/L (98-107); COSMO 278; POTASSIUM 4.6 mmol/L (3.5-5.1); SODIUM 137 mmol/L (136-145); TCO2 25 mmol/L (25-35)
[2016-09-04 07:22] LABS: INR 3.1 (0.86-1.15); PROTIME 31.8 Seconds (12.1-15.5)
[2016-09-04] MEDS: LASIX PO SCH (09:28)
[2016-09-04] MEDS: COREG PO SCH ×2 (09:28→21:14)
[2016-09-04] MEDS: PLAVIX PO SCH (09:28)
--- NOTE | 2016-09-04 19:20 | PROGRESS NOTE ---
DATE: 09/04/2016 SUBJECTIVE: The patient is breathing a little bit better today, coughing less. PHYSICAL EXAMINATION: Vital signs: Blood pressure 142/64, heart rate 81, respiratory rate 18, temperature 98.1 degrees, 97% on 2 L. Cardiovascular: Regular rate and rhythm. Pulmonary: Bilateral breath sounds. Clear to auscultation. Gastrointestinal: Abdomen soft, nontender, nondistended. Bowel sounds are positive. LABORATORY DATA: Basic looks okay. White count 11.9 on steroids. Hemoglobin and hematocrit 11 and 39. Platelets at 203,000. PROBLEM LIST: 1. Chronic obstructive pulmonary disease. Exacerbation appears stabilizing. I am going to wean her steroids, continue breathing treatments and follow. She still has some rhonchi on examination. She is on Rocephin and azithromycin. 2. Atrial fibrillation appears to be well-controlled. INR is slightly elevated so we will adjust down her Coumadin and follow. DISPOSITION: I anticipate tomorrow I think she potentially can go home. We will continue to follow very closely.
[2016-09-04] MEDS ORDERED: COUMADIN PO SCH (21:00)
[2016-09-04] MEDS: PROTONIX PO SCH (21:14)
[2016-09-04] MEDS: LIPITOR PO SCH (21:14)
[2016-09-04] MEDS: IMDUR PO SCH (21:14)
[2016-09-05] MEDS: VASOTEC PO SCH (01:00)
[2016-09-05] MEDS: DILAUDID IV PRN ×6 (01:03→16:37)
[2016-09-05] MEDS: ROCEPHIN 1 GM/NS 50 ML IV SCH (03:25)
[2016-09-05] MEDS: DUONEB (A & A) INH SCH ×4 (04:20→15:53)
[2016-09-05 06:22] LABS: INR 2.39 (0.86-1.15); PROTIME 26.1 Seconds (12.1-15.5)
[2016-09-05] MEDS: SOLU-MEDROL IV SCH (06:36)
[2016-09-05] MEDS: LASIX PO SCH ×2 (07:57→10:33)
[2016-09-05] MEDS: COREG PO SCH ×2 (07:57→10:32)
[2016-09-05] MEDS: PLAVIX PO SCH ×2 (07:57→10:33)
[2016-09-05] MEDS: ZITHROMAX PO SCH ×2 (07:57→10:33)
[2016-09-05 16:01] VITALS: BP 170/84
--- NOTE | 2016-09-06 08:13 | DISCHARGE SUMMARY ---
DATE: 09/05/2016 SUBJECTIVE: Patient has no focal complaints. OBJECTIVE: Vital signs: Blood pressure 137/54, respiratory rate 18, heart rate 94, temperature 97.9 degrees, 92% on room air. Cardiovascular: Regular rate and rhythm. Pulmonary: Bilateral breath sounds. Clear to auscultation. GI: Soft, nontender, nondistended. Bowel sounds are positive. Extremities: No clubbing or cyanosis. Lymphatics: No peripheral edema. Neurological: Nonfocal. LABORATORY DATA: Patient is clinically stable. She has issues with pneumonia. She was admitted for pneumonia. ADMISSION DIAGNOSIS: 1. Pneumonia. 2. Chronic obstructive pulmonary disease exacerbation. DISCHARGE DIAGNOSIS: 1. Pneumonia. 2. Chronic obstructive pulmonary disease exacerbation. HOSPITAL COURSE: She was placed on Rocephin and azithromycin. This was starting the and has slowly clinically improved today. Saturations were low on admission. She is on oxygen at home. Currently 92% on room air. DISCHARGE CONDITION: Stable. She will go home on Omnicef for another 7 days, azithromycin for another 1 day and a Medrol dose pack. Continue DuoNebs at home. Other discharge medications Coreg 12.5 b.i.d., Plavix 75 daily, Imdur 30 daily, Protonix 40 daily, Vasotec 10 daily, Lipitor 80 daily, Klonopin 1 t.i.d., Lasix 20 daily, Coumadin 5 at bedtime, and DuoNebs inhaled t.i.d. Her INR did bump up a little bit with the antibiotics, 2.39 today after adjusting down, so I would recommend follow up INR. Today is , so follow up INR on Friday or Friday with her primary care physician to ensure that she has she gets an INR check, just to make sure the antibiotics had not significantly affected any coagulopathy. Would return for any worsening shortness of breath or cough and we will follow closely. TIME SPENT: 32 minute discharge.
== END 2016-09-05 17:15 | disposition home or self-care (01) | DRG 190 ==
LOC: P.ED 00:25 → P.MEDSURG 02:35
PROVIDERS: ATTEND Internal Medicine
DX: J44.0 Chronic obstructive pulmonary disease with (acute) lower respiratory infection (principal); J18.9 Pneumonia, unspecified organism; I11.0 Hypertensive heart disease with heart failure; Z99.81 Dependence on supplemental oxygen; I50.9 Heart failure, unspecified; J44.1 Chronic obstructive pulmonary disease with (acute) exacerbation; I25.2 Old myocardial infarction; J45.909 Unspecified asthma, uncomplicated; K21.9 Gastro-esophageal reflux disease without esophagitis; G89.29 Other chronic pain; Z86.73 Personal history of transient ischemic attack (TIA), and cerebral infarction without residual deficits; F41.9 Anxiety disorder, unspecified; I25.10 Atherosclerotic heart disease of native coronary artery without angina pectoris; G47.33 Obstructive sleep apnea (adult) (pediatric); I48.91 Unspecified atrial fibrillation; Z79.01 Long term (current) use of anticoagulants; Z79.899 Other long term (current) drug therapy; Z79.02 Long term (current) use of antithrombotics/antiplatelets
CPT/HCPCS: 36415; 71020; 80048; 80053; 82550; 83735; 83880; 84484; 85025; 85379; 85610; 85730; 87040; 93005; 94640; 94761; 96365; 96367; 96375; J0456; J0696; J1170; J2175; J2270; J2405; J2920; J2930; J7030

== ENCOUNTER 2017-01-19 16:02 | Inpatient (IN) ==
--- NOTE | 2017-01-19 16:22 | EKG Report ---
Test Performed on : 01/19/2017 4:06:57 PM Test Reason : SOB Blood Pressure : / mmHG Vent. Rate : 102 BPM Atrial Rate : 102 BPM P-R Int : 138 ms QRS Dur : 082 ms QT Int : 350 ms P-R-T Axes : 067 087 012 degrees QTc Int : 456 ms Sinus tachycardia. Possible Left atrial enlargement Borderline ECG When compared with ECG of 02-SEP-2016 01:06, No significant change was found Unconfirmed Result
[2017-01-19 16:39] LABS: BE 1.9 mmoll (-3.0-3.0); BLOOD TYPE ARTERIAL; O2(CT) 16.4 mL/dL (15.0-23.0); PCO2(98.6) 50 mmHg (35-45); PO2(98.6) 63 mmHg (60-100); SAMPLE BLOOD; SAO2 94.6 % (95.0-100.0); pH(98.6) 7.36 (7.35-7.45)
[2017-01-19 16:48] LABS: ALBUMIN 3.7 g/dL (3.5-5.0); MAGNESIUM 1.3 mg/dL (1.5-2.7); POTASSIUM 5.4 mmol/L (3.5-5.1); TOTAL BILIRUBIN 0.3 mg/dL (0.20-1.00); TOTAL PROTEIN 7.8 g/dL (6.3-8.3)
[2017-01-19 16:53] LABS: DRAW SITE L RADIAL; MODALITY COOL AEROSOL
[2017-01-19 16:54] LABS: ALLEN TEST YES
[2017-01-19 16:55] LABS: BASO% 0.2 % (0.0-0.8); EOS# 0.11 X1000 (0.0-0.7); EOS% 0.6 % (0.0-10.0); HEMOGLOBIN 13.1 g/dL (12.0-16.0); IMM GRAN# 0.02 X1000 (0.0-0.04); IMM GRAN% 0.1 % (0.0-0.5); LYMPH# 0.92 X1000 (1.2-3.4); LYMPH% 5.4 % (20.5-51.1); MANUAL DIFF NEEDED? NO; MCH 28.8 PG (27-31); MCHC 30.5 g/dL (33-37); MCV 94.5 FL (81-99); MONO# 0.82 X1000 (0.11-0.59); MONO% 4.8 % (1.7-9.3); MPV 11.9 FL (7.4-10.4); NEUT% 88.9 % (42.2-75.2); PLT 218 X1000 (130-400); RBC 4.55 XMIL (4.2-5.4)
[2017-01-19 17:16] LABS: PTT PL 50.4 Seconds (22.6-43.9)
[2017-01-19 17:18] LABS: PROTIME 45.7 Seconds (12.1-15.5)
[2017-01-19] MEDS ORDERED: DUONEB (A & A) INH ONE (17:21)
[2017-01-19] MEDS ORDERED: SOLU-MEDROL IV ONE (17:21)
[2017-01-19] MEDS ORDERED: ROCEPHIN 1 GM/NS 1 GM/50 ML IVPB IV ONE (17:23)
[2017-01-19] MEDS ORDERED: LASIX IV ONE (17:27)
[2017-01-19 18:04] LABS: URINE CULTURE PL NEEDED? NO
[2017-01-19 18:14] LABS: UR AMPHETAMINES QUAL NONE DETECTED (NONE DETECT); UR BARBITUATES QUAL NONE DETECTED (NONE DETECT); UR BENZODIAZEPIN QUAL PRESUMPTIVE POSITIVE (NONE DETECT); UR CANNABINOIDS QUAL NONE DETECTED (NONE DETECT); UR COCAINE QUAL NONE DETECTED (NONE DETECT); UR MDMA QUAL NONE DETECTED (NONE DETECT); UR METHADONE QUAL NONE DETECTED (NONE DETECT); UR METHAMPHETAMINE QUAL NONE DETECTED (NONE DETECT); UR OPIATES QUAL PRESUMPTIVE POSITIVE (NONE DETECT); UR OXYCODONE QUAL PRESUMPTIVE POSITIVE (NONE DETECT); UR PCP QUAL NONE DETECTED (NONE DETECT); UR TCA QUAL NONE DETECTED (NONE DETECT)
--- NOTE | 2017-01-19 18:21 | PROVIDER DOCUMENTATION ---
This chart was entered by Joelle Meza Scribe, acting as scribe for Domingo García MD. HPI-Respiratory General - General Chief Complaint: Altered Mental Status Time Seen by Provider: 01/19/17 16:22 Source: family () Allergies/Adverse Reactions: Patient Allergies Allergy/AdvReac Type Severity Reaction Status Date / Time levofloxacin [From Levaquin] Allergy Intermediate RASH Verified 01/19/17 16:04 NSAIDS (Non-Steroidal Allergy Unknown Unknown Verified 01/19/17 16:04 Anti-Inflamma morphine AdvReac Mild HENSLEY Verified 01/19/17 16:04 Home Medications: Home Medication List Medication Instructions Recorded Confirmed Last Taken Type Carvedilol 12.5 mg PO BID 03/11/14 01/19/17 09/01/16 History Clopidogrel Bisulfate [Clopidogrel] 75 mg PO DAILY 03/11/14 01/19/17 09/01/16 History Isosorbide Mononitrate [Imdur] 30 mg PO QHS 03/11/14 01/19/17 09/01/16 History Pantoprazole [Protonix] 40 mg PO QHS 03/11/14 01/19/17 09/01/16 History ENALApril [Vasotec] 10 mg PO QHS 07/20/14 01/19/17 09/01/16 History ATORVAstatin [Lipitor] 80 mg PO QHS 08/14/15 01/19/17 09/01/16 History Clonazepam [Klonopin] 1 mg PO TID 08/15/15 01/19/17 09/01/16 History Albuterol 2.5MG/Ipratrop 0.5MG 3 ml INH TID 11/14/15 01/19/17 09/02/16 History [Duoneb (A & A)] Warfarin [Coumadin] 5 mg PO QHS 11/14/15 01/19/17 09/01/16 History Hydrocodone/Acetaminophen 1 each PO DIRECTED 01/19/17 01/19/17 Unknown History [Hydrocodon-Acetaminophn 10-325] Promethazine HCl [Promethazine HCl] 25 mg PO DIRECTED 01/19/17 01/19/17 Unknown History - History of Present Illness-Resp Nature of Presenting Problem: 56 yof presents to ed by ems with sob. states he called ems because pt was having difficulty breathing and ams onset this morning. ems states upon arrival pt o2 sat was 75 and barely responsive. states pt is on home o2 set at 2 liters. Has hx of COPD,CHF. pt denies n/v/d. Quality of Pain: reports: none Severity in ED: reports: mild Onset/Duration: reports: this morning Timing: reports: still present Exposure: reports: unknown cause Cough Quality/Degree: reports: no cough Current Respiratory Medication Therapy: Initiated albuterol, Initiated other ( oxygen 2 liters) Associated Symptoms: reports: shortness of breath, short of breath Similar Symptoms Previously?: No Recently seen or treated by another doctor?: No Review of Systems - Adult - REVIEW OF SYSTEMS - ADULT Constitutional: reports: fatique. denies: chills, fever Eyes: reports: no symptoms reported Ears, Nose, Mouth & Throat: reports: no symptoms reported Cardiovascular: reports: no symptoms reported Respiratory: reports: shortness of breath. denies: cough Gastrointestinal: denies: abdominal pain, nausea, vomiting Genitourinary: reports: no symptoms reported Musculoskeletal: reports: muscle weakness. denies: back pain, muscle aches Integumentary: reports: no symptoms reported Neurological: reports: numbness. denies: dizziness/vertigo, syncope Psychiatric: reports: no symptoms reported Endocrine: reports: no symptoms reported Hematologic/Lymphatic: reports: no symptoms reported Allergic/Immunologic: reports: no symptoms reported All Other Systems: Reviewed and Negative Past History - Adult - PAST MEDICAL HISTORY-ADULT Review of Records: reports: Old Records Reviewed, Nursing Assessment Review, Medications Reviewed Major Childhood Illnesses: reports: denies history Cardiovascular: reports: CHF Respiratory: reports: COPD, pneumonia Gastrointestinal: reports: GERD Obstetrical/Gynecological: reports: denies history Genitourinary: reports: denies history Musculoskeletal: reports: chronic pain (back) Neurological: reports: CVA Psychiatric: reports: anxiety Endocrine/Immune: reports: denies history Other Conditions: reports: denies history - PRIOR SURGERIES/PROCEDURES Surgical/Procedure History: reports: appendectomy, cholecystectomy, other ( carotid artery Sx. renal stent) - PRIOR HOSPITALIZATIONS Prior Hospitalizations: reports: for similar symptoms - IMMUNIZATION STATUS Childhood Immunizations: See Nurse Assessment Flu Vaccine: See Nurse Assessment - FAMILY HISTORY Family History: reviewed, not pertinent Physical Exam-General - PHYSICAL EXAM-ADULT Initial Vital Signs Reviewed: Yes - CONSTITUTIONAL General Appearance: mild distress, lethargic - EYES Eyes: PERRL/EOMI, pink conjunctivae - HEAD, EARS, NOSE, MOUTH & THROAT HENMT: normocephalic/atraumatic, moist mucous membranes, normal ENT inspection, TMs normal, pharynx normal - NECK Neck: non-tender, full range of motion, supple, normal inspection - RESPIRATORY Respiratory: chest non-tender, crackles (posterior) - CARDIOVASCULAR Cardiovascular: tachycardia (104) - GASTROINTESTINAL (ABDOMEN) Abdominal Exam: normal bowel sounds, non tender, soft, no organomegaly - LYMPHATIC Lymphatic: no adenopathy - MUSCULOSKELETAL Back Exam: normal inspection, no CVA tenderness, no vertebral tenderness Extremity: normal range of motion, normal inspection, no pedal edema, no calf tenderness - SKIN Integumentary: pallor - NEUROLOGIC Neurologic: motor weakness - PSYCHIATRIC Psych/Mental Status: disoriented x 3 Progress - PLAN OF CARE/RESULTS Progress/Plan/Lab Results: Vital Signs - 8 hr 01/19/17 16:04 01/19/17 17:31 Pulse Rate 110 H 96 H Respiratory Rate 22 16 Blood Pressure 139/59 O2 Sat by Pulse Oximetry 96 92 L Laboratory Results - last 24 hr 01/19/17 01/19/17 01/19/17 16:17 16:20 16:20 WBC RBC Hgb Hct MCV MCH MCHC RDW Std Deviation Plt Count MPV Immature Gran % (Auto) Neut % (Auto) Lymph % (Auto) [place] % (Auto) Eos % (Auto) Baso % (Auto) Immature Gran # (Auto) Neut # (Auto) Lymph # (Auto) [place] # (Auto) Eos # (Auto) Baso # (Auto) PT INR APTT (Factor Assay) D-Dimer Specimen Type ARTERIAL Sample Site L RADIAL pH 7.36 pCO2 50 H pO2 63 HCO3 26.2 H Base Excess 1.9 Oxyhemoglobin 89.7 L* ABG O2 Sat (Calculated) 16.4 ABG O2 Saturation 94.6 L ABG Carboxyhemoglobin 4.30 H ABG Methemoglobin 1.0 Kirk Test YES A-a O2 Difference 145.0 Total Hemoglobin 13.0 Lactate 1.30 Liter Flow 4.5 Blood Gas Modality COOL AEROSOL FiO2 % 38.0 Sodium 137 Potassium 5.4 H Chloride 99 Carbon Dioxide 27 Anion Gap 12 BUN 20 Creatinine 1.1 H Estimated GFR/1.73 m2 52 BUN/Creatinine Ratio 18 Glucose 107 H Calculated Osmolality 277 Calcium 9.0 Magnesium 1.3 L Total Bilirubin 0.30 AST 19 ALT 8 L Alkaline Phosphatase 92 Creatine Kinase 103 Troponin T < 0.010 Ins-[id number]-[id number] Pept Total Protein 7.8 Albumin 3.7 Globulin 4.0 Albumin/Globulin Ratio 1.0 Urine Source Urine Color Urine Clarity Urine pH Ur Specific [place] Urine Protein Urine Ketones Urine Blood Urine Nitrite Urine Bilirubin Urine Urobilinogen Urine Microscopic RBC Urine WBC Urine Microscopic WBC Ur Epithelial Cells Urine Glucose Urine Opiates Screen Ur Oxycodone Screen Urine Methadone Screen Ur Barbituates Screen Ur Tricyclics Screen Ur Phencyclidine Scrn Ur Amphetamines Screen U Methamphetamines Scrn Urine MDMA Screen U Benzodiazepines Scrn Urine Cocaine Screen U Cannabinoids Screen Plasma/Serum Ethyl Alc 01/19/17 01/19/17 01/19/17 16:20 16:20 16:20 WBC 17.00 H RBC 4.55 Hgb 13.1 Hct 43.0 MCV 94.5 MCH 28.8 MCHC 30.5 L RDW Std Deviation 14.6 H Plt Count 218 MPV 11.9 H Immature Gran % (Auto) 0.1 Neut % (Auto) 88.9 H Lymph % (Auto) 5.4 L [place] % (Auto) 4.8 Eos % (Auto) 0.6 Baso % (Auto) 0.2 Immature Gran # (Auto) 0.02 Neut # (Auto) 15.10 H Lymph # (Auto) 0.92 L [place] # (Auto) 0.82 H Eos # (Auto) 0.11 Baso # (Auto) 0.03 PT 45.7 H INR 5.00 H APTT (Factor Assay) 50.4 H D-Dimer < 0.22 L Specimen Type Sample Site pH pCO2 pO2 HCO3 Base Excess Oxyhemoglobin ABG O2 Sat (Calculated) ABG O2 Saturation ABG Carboxyhemoglobin ABG Methemoglobin Kirk Test A-a O2 Difference Total Hemoglobin Lactate Liter Flow Blood Gas Modality FiO2 % Sodium Potassium Chloride Carbon Dioxide Anion Gap BUN Creatinine Estimated GFR/1.73 m2 BUN/Creatinine Ratio Glucose Calculated Osmolality Calcium Magnesium Total Bilirubin AST ALT Alkaline Phosphatase Creatine Kinase Troponin T [id number] Pept 1050 H Total Protein Albumin Globulin Albumin/Globulin Ratio Urine Source Urine Color Urine Clarity Urine pH Ur Specific [place] Urine Protein Urine Ketones Urine Blood Urine Nitrite Urine Bilirubin Urine Urobilinogen Urine Microscopic RBC Urine WBC Urine Microscopic WBC Ur Epithelial Cells Urine Glucose Urine Opiates Screen Ur Oxycodone Screen Urine Methadone Screen Ur Barbituates Screen Ur Tricyclics Screen Ur Phencyclidine Scrn Ur Amphetamines Screen U Methamphetamines Scrn Urine MDMA Screen U Benzodiazepines Scrn Urine Cocaine Screen U Cannabinoids Screen Plasma/Serum Ethyl Alc 01/19/17 01/19/17 01/19/17 16:20 17:57 17:57 WBC RBC Hgb Hct MCV MCH MCHC RDW Std Deviation Plt Count MPV Immature Gran % (Auto) Neut % (Auto) Lymph % (Auto) [place] % (Auto) Eos % (Auto) Baso % (Auto) Immature Gran # (Auto) Neut # (Auto) Lymph # (Auto) [place] # (Auto) Eos # (Auto) Baso # (Auto) PT INR APTT (Factor Assay) D-Dimer Specimen Type Sample Site pH pCO2 pO2 HCO3 Base Excess Oxyhemoglobin ABG O2 Sat (Calculated) ABG O2 Saturation ABG Carboxyhemoglobin ABG Methemoglobin Kirk Test A-a O2 Difference Total Hemoglobin Lactate Liter Flow Blood Gas Modality FiO2 % Sodium Potassium Chloride Carbon Dioxide Anion Gap BUN Creatinine Estimated GFR/1.73 m2 BUN/Creatinine Ratio Glucose Calculated Osmolality Calcium Magnesium Total Bilirubin AST ALT Alkaline Phosphatase Creatine Kinase Troponin T [id number] Pept Total Protein Albumin Globulin Albumin/Globulin Ratio Urine Source CLEAN CATCH Urine Color YELLOW Urine Clarity CLEAR Urine pH 5.0 Ur Specific [place] 1.020 Urine Protein TRACE A Urine Ketones NEGATIVE Urine Blood NEGATIVE Urine Nitrite NEGATIVE Urine Bilirubin NEGATIVE Urine Urobilinogen NORMAL Urine Microscopic RBC <10 Urine WBC NEGATIVE Urine Microscopic WBC <10 Ur Epithelial Cells <10 Urine Glucose NEGATIVE Urine Opiates Screen PRESUMPTIVE POSITIVE A Ur Oxycodone Screen PRESUMPTIVE POSITIVE A Urine Methadone Screen NONE DETECTED Ur Barbituates Screen NONE DETECTED Ur Tricyclics Screen NONE DETECTED Ur Phencyclidine Scrn NONE DETECTED Ur Amphetamines Screen NONE DETECTED U Methamphetamines Scrn NONE DETECTED Urine MDMA Screen NONE DETECTED U Benzodiazepines Scrn PRESUMPTIVE POSITIVE A Urine Cocaine Screen NONE DETECTED U Cannabinoids Screen NONE DETECTED Plasma/Serum Ethyl Alc Orders Category Date Time Status Cardiac Monitoring DIRECTED Care 01/19/17 16:19 Active Leary Cath Insertion ORDERED Care 01/19/17 17:28 Active Oxygen Therapy- ED Nursing DIRECTED Care 01/19/17 16:19 Active Saline Loc NOW Care 01/19/17 16:19 Active CHEST-PORTABLE [RAD] Stat Exams 01/19/17 16:51 Taken HEAD/C-SPINE W/O CONTRAST [CT] Stat Exams 01/19/17 17:27 Ordered ABG [RESP] Routine Lab 01/19/17 16:17 Completed ALCOHOL BLOOD Stat Lab 01/19/17 16:20 Completed BLOOD CULTURE [BLDCUL] Stat Lab 01/19/17 17:25 Ordered CBC WITH ELECTRONIC DIFF [HEME] Stat Lab 01/19/17 16:20 Completed CK PROFILE [SP CHEM] Stat Lab 01/19/17 16:20 Completed COMPREHENSIVE METABOLIC PANEL [CHEM] Stat Lab 01/19/17 16:20 [address] D-DIMER [address] [COAG] Stat Lab 01/19/17 16:20 Completed MAGNESIUM [CHEM] Stat Lab 01/19/17 16:20 Completed PRO B-NATRIURETIC PEPTIDE Stat Lab 01/19/17 16:20 Completed [address]IME WITH INR PL [COAG] Stat Lab 01/19/17 16:[address] [COAG] Stat Lab 01/19/17 16:20 Completed TROPONIN T Stat Lab 01/19/17 16:20 Completed UDS [URINE DRUG SCREEN PL] Stat Lab 01/19/17 17:[address] W/POSS RFLX CULT [URINALYSIS] Stat Lab 01/19/17 17:57 Received Albuterol 2.5MG/Ipratrop 0.5MG [Duoneb (A & A)] Med 01/19/17 17:21 Discontinued 3 ml INH NOW ONE CefTRIAXONE 1 GM/NS [Rocephin 1 gm/Ns] Med 01/19/17 17:23 Discontinued 1 gm in 50 ml IV NOW Furosemide [Lasix] Med 01/19/17 17:27 Discontinued 60 mg IV NOW ONE Methylprednisolone Sod Succ [Solu-Medrol] Med 01/19/17 17:21 Discontinued 125 mg IV NOW ONE Aerosol Treatments Routine Oth 01/19/17 17:21 Active Aerosol Treatments Stat Oth 01/19/17 17:21 Active EKG [EKG] Stat Ther 01/19/17 16:19 Draft Result Diagrams: 01/19/17 16:20 01/19/17 16:20 - EKG 1 Time of EKG reading by physician:: 16:06 EKG Read and Signed by:: Brennen Hayward EKG Interpretation (*Must complete 3 of following elements*): Abnormal Rate: 102 Rhythm: sinus tachycardia [place]: left (possible atrial enlargement) - CONSULTS/PCP/HOSPITALIST Notification #1 *Consult/PCP/Hospitalist*: Dr. Denis Time Discussed: 18:22 Consult Disposition: Admit Departure - Departure Date of Disposition Decision: 01/19/17 Time of Disposition Decision: 18:27 DIAGNOSIS: Hypoxia Altered mental status Qualifiers: Altered mental status type: unspecified Qualified Code(s): R41.82 - Altered mental status, unspecified CHF (congestive heart failure) Qualifiers: Congestive heart failure type: unspecified congestive heart failure type Congestive heart failure chronicity: unspecified congestive heart failure chronicity Qualified Code(s): I50.9 - Heart failure, unspecified COPD (chronic obstructive pulmonary disease) Qualifiers: COPD type: unspecified COPD Qualified Code(s): J44.9 - Chronic obstructive pulmonary disease, unspecified Disposition: ADMITTED INPATIENT 09 Certified Medical Emergency: Emergent Condition: Stable Referrals and Follow-Ups: None,PCP [Primary Care Provider] - - Critical Care Note This patient required my direct & personal management of CC.: Yes This chart was documented by the indicated scribe, (Joelle Meza Scribe) and accurately reflects the services I performed and decisions made by me, Domingo García MD, as attested by the provider's signature.
[2017-01-19 18:23] LABS: BILIRUBIN URINE NEGATIVE (NEGATIVE); BLOOD URINE NEGATIVE (NEGATIVE); CLARITY CLEAR (CLEAR); COLOR YELLOW; GLUCOSE URINE NEGATIVE (NEGATIVE); LEUKOCYTES URINE NEGATIVE (NEGATIVE); NITRITE URINE NEGATIVE (NEGATIVE); PROTEIN URINE TRACE mg/dL (NEGATIVE); UROBILINOGEN URINE NORMAL
[2017-01-19 18:24] LABS: URINE SOURCE CLEAN CATCH
[2017-01-19 18:25] LABS: URINE EPITHELIAL CELLS <10 /HPF (<10); URINE RBC <10 /HPF (<10); URINE WBC <10 /HPF (<10)
--- NOTE | 2017-01-19 18:36 | Diag Imaging Result Doc PS360 ---
EXAM: CHEST-PORTABLE HISTORY: sob/ams TECHNIQUE: Portable AP COMPARISON: 09/02/2016 FINDINGS: The lungs are well expanded. Heart is borderline mildly prominent. The vessels are distended. There may be underlying infiltrates in the lung bases as well. No pleural effusions identified. IMPRESSION: Pulmonary edema with possible underlying infiltrates in the lung bases. Electronically signed by Armaan Baldwin 01/19/2017 6:34 PM
--- NOTE | 2017-01-19 18:53 | Diag Imaging Result Doc PS360 ---
EXAM: HEAD W/O CONTRAST HISTORY: altered mentation TECHNIQUE: Dose reduction protocol COMPARISON: 02/14/2015 FINDINGS: No parenchymal hemorrhage. No epidural or subdural hematoma. No subarachnoid hemorrhage. No mass identified on this noncontrasted exam. Old right frontal infarct. This was present on the prior exam. No hydrocephalus. No sinus opacification. IMPRESSION: No hemorrhage. Old right frontal infarct. Electronically signed by Armaan Baldwin 01/19/2017 6:50 PM
[2017-01-19] MEDS ORDERED: ZOFRAN IV PRN (19:30)
[2017-01-19] MEDS ORDERED: DUONEB (A & A) INH PRN (19:30)
[2017-01-19] MEDS ORDERED: DUONEB (A & A) INH SCH (19:30)
[2017-01-19] MEDS: DUONEB (A & A) INH SCH ×2 (19:35→22:50)
[2017-01-19] MEDS: LASIX IV SCH (20:39)
[2017-01-19] MEDS: CLINDAMYCIN 600 MG/NS 600 MG/50 ML IVPB IV SCH (20:41)
[2017-01-19] MEDS ORDERED: ROCEPHIN 1 GM/NS 1 GM/50 ML IVPB IV SCH (21:00)
--- NOTE | 2017-01-19 22:19 | HISTORY AND PHYSICAL ---
CHIEF COMPLAINT: Unresponsive. HISTORY OF PRESENT ILLNESS: This is a 56-year-old female with a history of COPD with home O2, CAD, CVA and congestive heart failure. She was presented to the emergency room via EMS after being called by her . The states that the patient was in her normal state of health last night. This morning he left the house and she was asleep. On returning he had difficulty waking her up. He states "I work with her oxygen all day and the best I could get it was 82, that's when I called paramedics." On their arrival her O2 saturation was 75. She was given albuterol treatments, supplemental oxygen and brought to the hospital. On arrival to the hospital she was on 4 L nasal cannula. Respirations were about 20-22. ABGs revealed a pH of 7.36 with a pCO2 of 50 and a PO2 of 63 and this was on 38% cool aerosol mask. She is noted to have a white count of 17. In emergency room blood cultures were drawn. She was given Rocephin as well as Lasix and steroids. She is being admitted to ICU for further evaluation and treatment. PAST MEDICAL HISTORY: 1. Chronic obstructive pulmonary disease with home O2 use. 2. Coronary artery disease severe disease that has been treated medically. 3. Chronic obstructive pulmonary disease with reactive airway component on home O2. 4. Peripheral vascular disease. 5. Dyslipidemia. 6. CVA on chronic Coumadin therapy. 7. Hypertension. 8. Chronic back pain. 9. Gastroesophageal reflux disease. 10. Sleep apnea. PAST SURGICAL HISTORY: Appendectomy, cholecystectomy, carotid artery surgery and renal stent. SOCIAL HISTORY: She lives with her . Denies alcohol or illicit drug use. She does smoke about a pack a day. ALLERGIES: Levaquin, NSAIDS and morphine. HOME MEDICATIONS: Phenergan 25 p.o. p.r.n., [place] 10/325 as directed, Klonopin 1 mg 3 times a day, DuoNeb t.i.d., Protonix 40 mg at bedtime, Imdur 30 at bedtime, Plavix 75 daily, Vasotec 10 at bedtime, carvedilol 12.5 b.i.d., Lipitor 80 at bedtime and warfarin 5 at bedtime. REVIEW OF SYSTEMS: Unable to obtain from the patient due to her mental status. PHYSICAL EXAMINATION: GENERAL: This is a 56-year-old female who is lying in the bed in no distress. VITAL SIGNS: Blood pressure is 139/50 with a heart rate of 96, respirations are 19, O2 saturation is 92-96% on 40% face mask. HEENT: Head is normocephalic, atraumatic. Pupils equal, round, react to light. Pupils are nonicteric. Mucous membranes are dry. NECK: Supple with trachea midline. CARDIOVASCULAR: Regular rate and rhythm. S1 and S2 appreciated without murmur or gallop. PULMONARY: Breath sounds are noted to have rales and wheezing scattered throughout with no increased work of breathing noted. GASTROINTESTINAL: Abdomen is large, soft, nondistended with bowel sounds in all 4 quadrants. EXTREMITIES: No clubbing or cyanosis. She does have some pretibial edema with pulses palpable x4. NEUROLOGIC: She withdraws to pain. She does answer questions with stimulation. She is able to state her birthday, she knows her and she is able to state that she is at the hospital. DIAGNOSTICS: WBC is 17 with a hemoglobin 13.1, hematocrit 43 and platelets of 218,000, INR is 5, pH is 7.36 with a pCO2 of 50, PO2 of 63 and a bicarb of 26.2. Sodium is 137, potassium 5.4, BUN 20, creatinine 1.1 with glucose of 107, magnesium is 1.3. Troponin is less than 0.010 with a proBNP of 1050. Chest x-ray reveals bilateral lower lobe infiltrates along with pulmonary edema. CT of the head waiting radiology read. ASSESSMENT AND PLAN: 1. Acute respiratory failure. 2. Acute on chronic chronic obstructive pulmonary disease exacerbation. 3. Altered mental status. Components include over-sedation as well as hypoxemia. 4. Bilateral lower lobe pneumonia. 5. Leukocytosis most likely from pneumonia. 6. Hyperkalemia. 7. Hypomagnesemia. 8. History of coronary artery disease. 9. History of cerebrovascular accident. 10. Chronic anticoagulation. PLAN: She will be admitted to ICU. She will receive supplemental oxygen. We will trend her blood gases. She will be on telemetry. We will hold all of her home medications. As she is sedated she will be remain NPO as she is a aspiration risk. Blood cultures were drawn. She was given Rocephin in the emergency room as there could be a component of aspiration pneumonia. Will add clindamycin. She was given Lasix in the emergency room and Leary was placed. Will monitor I and O. She does have elevated potassium but after having the Lasix she may diuresis this out, we will trend her electrolytes. Will supplement her magnesium, duo nebs q.4 hours and q.2 hours p.r.n. Steroids to taper. Further treatments pending hospital course. Dictated by RALPH Lugo for Jermaine Denis MD cc: RALPH Lugo MD
[2017-01-20] MEDS: SOLU-MEDROL IV SCH ×3 (00:38→16:12)
[2017-01-20] MEDS: DUONEB (A & A) INH SCH ×6 (02:35→22:40)
[2017-01-20] MEDS: CLINDAMYCIN 600 MG/NS 600 MG/50 ML IVPB IV SCH (04:07)
[2017-01-20 04:36] LABS: HEMATOCRIT 41.5 % (37.0-47.0); HEMOGLOBIN 12.5 g/dL (12.0-16.0); MCH 28.5 PG (27-31); MCHC 30.1 g/dL (33-37); MCV 94.5 FL (81-99); MPV 11.9 FL (7.4-10.4); RBC 4.39 XMIL (4.2-5.4)
[2017-01-20 04:41] LABS: INR 3.99 (0.86-1.15); PROTIME 38.5 Seconds (12.1-15.5)
[2017-01-20 05:26] LABS: BE 3.7 mmoll (-3.0-3.0); BLOOD TYPE ARTERIAL; METHB 1.6 % (0.0-1.5); O2(CT) 16.1 mL/dL (15.0-23.0); PO2(98.6) 60 mmHg (60-100); SAMPLE BLOOD; SAO2 92.7 % (95.0-100.0); THB 12.9 g/dL (11.5-17.4); pH(98.6) 7.28 (7.35-7.45)
[2017-01-20 05:27] LABS: ALBUMIN 3.8 g/dL (3.5-5.0); CALCIUM 8.7 mg/dL (8.8-10.2); MAGNESIUM 1.5 mg/dL (1.5-2.7); POTASSIUM 3.6 mmol/L (3.5-5.1); TOTAL BILIRUBIN 0.2 mg/dL (0.20-1.00); TOTAL PROTEIN 7.8 g/dL (6.3-8.3)
[2017-01-20 05:30] LABS: DRAW SITE R BRACHIAL; MODALITY VENTIMASK; PCO2(98.6) 69 mmHg (35-45)
[2017-01-20 05:31] LABS: ALLEN TEST NO
--- NOTE | 2017-01-20 08:51 | PROGRESS NOTE ---
DATE: 01/20/2017 SUBJECTIVE: Patient currently is on BiPAP. She is sleepy but arousable with stimulation. PHYSICAL EXAMINATION: Vital Signs: Temperature 97.2, pulse 98-106, respiratory rate 15, BP 116/70, saturation 98% on 40% venturi mask. Currently, she is 98% on BiPAP. General: Patient is in moderate respiratory distress. She is somnolent but arousable with stimuli. HEENT: Normocephalic, atraumatic. LOLIS. Neck: Supple. CV: Regular rate. Chest: Decreased breath sounds but improved with BiPAP. Abdomen: Soft. Extremities: Moves all extremities. Neurologic: No changes. LABORATORY DATA: WBCs 13. INR 3.99. PH 7.28, pCO2 of 69, base excess 3.5, oxyhemoglobin 88, carboxyhemoglobin 2.9. Lactate 0.8. Potassium 3.6. Magnesium 1.5. ASSESSMENT: 1. Acute respiratory failure, hypercapnic, secondary to chronic obstructive pulmonary disease. 2. Chronic obstructive pulmonary disease with moderate exacerbation. 3. Bilateral lower lobe pneumonia. 4. Hyperkalemia. 5. Hyper-coagulopathy. 6. Leukocytosis. 7. Sepsis secondary to pneumonia. 8. Known coronary artery disease. PLAN: We will continue to hold Coumadin. We will add doxycycline. Continue steroids and Lasix. She was started on BiPAP this morning secondary to increased hypercapnia. We will continue to follow. Of note, her is adamant that this is not in any way, shape, form, or fashion related to opiate use, although he has called the ICU 5 times overnight to inquire if she is getting pain medication because he does not "want her to hurt". Each time, we have discussed with him that she is not awake or alert enough to swallow and we are not going to give her IV pain medication as long as she is on BiPAP. We will continue to hold her Coumadin. We will not restart her other home medications currently. cc: Jermaine Denis MD
[2017-01-20] MEDS: LASIX IV SCH ×2 (09:07→20:14)
[2017-01-20] MEDS: DOXYCYCLINE 100 MG in NS 250 ML IV SCH ×2 (09:09→21:16)
[2017-01-20] MEDS ORDERED: BLISTEX MEDICATED BERRY LIP BALM TOP PRN (09:37)
[2017-01-20] MEDS ORDERED: CLINDAMYCIN 600 MG/NS 600 MG/50 ML IVPB IV SCH (13:00)
[2017-01-20] MEDS: ROCEPHIN 1 GM/NS 1 GM/50 ML IVPB IV SCH (16:12)
[2017-01-21] MEDS: DUONEB (A & A) INH SCH ×6 (02:35→22:31)
[2017-01-21] MEDS: SOLU-MEDROL IV SCH ×3 (02:42→17:03)
[2017-01-21 05:57] LABS: BE 9.2 mmoll (-3.0-3.0); BLOOD TYPE ARTERIAL; DRAW SITE R BRACHIAL; METHB 0.8 % (0.0-1.5); PCO2(98.6) 50 mmHg (35-45); PO2(98.6) 121 mmHg (60-100); SAMPLE BLOOD; SAO2 99.1 % (95.0-100.0); THB 13.1 g/dL (11.5-17.4); pH(98.6) 7.45 (7.35-7.45)
[2017-01-21 06:03] LABS: ALLEN TEST NO
[2017-01-21 06:09] LABS: INR 2.76 (0.86-1.15); PROTIME 29.1 Seconds (12.1-15.5)
[2017-01-21 07:29] LABS: HEMATOCRIT 40.3 % (37.0-47.0); HEMOGLOBIN 12.5 g/dL (12.0-16.0); MCH 28.8 PG (27-31); MCV 92.9 FL (81-99); RBC 4.34 XMIL (4.2-5.4)
[2017-01-21 07:51] LABS: AGAP 12; ALBUMIN 3.7 g/dL (3.5-5.0); ALKALINE PHOSPHATASE 77 U/L (32-104); BUN 31 mg/dL (8-22); CALCIUM 8.7 mg/dL (8.8-10.2); CHLORIDE 99 mmol/L (98-107); COSMO 288; GOT 8 U/L (10-30); GPT 5 U/L (10-36); MAGNESIUM 1.7 mg/dL (1.5-2.7); POTASSIUM 3.8 mmol/L (3.5-5.1); SODIUM 140 mmol/L (136-145); TCO2 30 mmol/L (25-35); TOTAL PROTEIN 7.1 g/dL (6.3-8.3)
[2017-01-21] MEDS: DOXYCYCLINE 100 MG in NS 250 ML IV SCH ×2 (09:03→21:42)
[2017-01-21] MEDS: LASIX IV SCH ×2 (09:03→21:41)
[2017-01-21] MEDS ORDERED: DILAUDID IV ONE (11:27)
--- NOTE | 2017-01-21 11:28 | Diag Imaging Result Doc PS360 ---
CHEST-PORTABLE - 01/21/2017 INDICATION: dyspnea TECHNIQUE: COMPARISON: 01/19/2017 FINDINGS: Heart size is normal. Pulmonary vascularity is somewhat distended. There are some ill-defined defined interstitial infiltrates bilaterally. The appearance is very similar to prior. No pneumothorax or pleural effusion. IMPRESSION: Questionable interstitial infiltrate suggesting fibrosis or pulmonary edema. Mild pulmonary vascular congestion. Electronically signed by Wan Eddy 01/21/2017 11:26 AM
[2017-01-21] MEDS ORDERED: NORCO-10 PO PRN (11:54)
[2017-01-21] MEDS ORDERED: DUONEB (A & A) INH SCH (13:00)
[2017-01-21] MEDS: KLONOPIN PO SCH ×2 (14:08→17:03)
[2017-01-21] MEDS: ROCEPHIN 1 GM/NS 1 GM/50 ML IVPB IV SCH (17:04)
[2017-01-21] MEDS: DILAUDID IV PRN ×2 (18:20→21:41)
[2017-01-21] MEDS ORDERED: IMDUR PO SCH (21:00)
[2017-01-21] MEDS ORDERED: PROTONIX PO SCH (21:00)
[2017-01-21] MEDS ORDERED: VASOTEC PO SCH (21:00)
[2017-01-21] MEDS ORDERED: COUMADIN PO SCH (21:00)
[2017-01-21] MEDS ORDERED: LIPITOR PO SCH (21:00)
[2017-01-21] MEDS: COREG PO SCH (21:42)
[2017-01-22] MEDS: DILAUDID IV PRN ×5 (00:30→13:16)
[2017-01-22] MEDS: SOLU-MEDROL IV SCH ×2 (01:01→09:22)
[2017-01-22] MEDS: DUONEB (A & A) INH SCH ×3 (02:58→11:13)
[2017-01-22 05:31] LABS: MODALITY BI PAP
[2017-01-22 05:55] LABS: HEMATOCRIT 39.3 % (37.0-47.0); HEMOGLOBIN 12.1 g/dL (12.0-16.0); MCH 28.5 PG (27-31); MCHC 30.8 g/dL (33-37); MCV 92.5 FL (81-99); MPV 11.8 FL (7.4-10.4); RBC 4.25 XMIL (4.2-5.4)
[2017-01-22 06:06] LABS: INR 2.34 (0.86-1.15); PROTIME 25.7 Seconds (12.1-15.5)
[2017-01-22 06:23] LABS: CALCIUM 9.1 mg/dL (8.8-10.2); MAGNESIUM 1.4 mg/dL (1.5-2.7); POTASSIUM 3.8 mmol/L (3.5-5.1)
[2017-01-22] MEDS ORDERED: PLAVIX PO SCH (09:00)
[2017-01-22] MEDS: LASIX IV SCH (09:22)
[2017-01-22] MEDS: COREG PO SCH (09:23)
[2017-01-22] MEDS: DOXYCYCLINE 100 MG in NS 250 ML IV SCH (09:23)
[2017-01-22] MEDS: KLONOPIN PO SCH ×2 (09:23→13:16)
[2017-01-22 12:26] VITALS: BP 104/57
--- NOTE | 2017-01-22 14:59 | DISCHARGE SUMMARY ---
DATE: 01/22/2017 DISCHARGE DIAGNOSES: 1. Pneumonia. 2. Chronic obstructive pulmonary disease exacerbation. 3. Metabolic encephalopathy. 4. Acute on chronic respiratory failure. 5. Hyperkalemia. 6. History of coronary artery disease, cerebrovascular accident. HISTORY OF PRESENT ILLNESS: Briefly, this is a COPD patient who still does smoke about a pack a day. reported that she was having difficulty waking up, could not get her to wake up. Saturations were 82%. She is usually on oxygen at night which she only uses intermittently. When she got here her saturations were 75%. Blood gas showed some hypercapnia but pH was intact. She was placed on BiPAP, Lasix, and steroids. She slowly improved. Her initial head CT was unremarkable. She had an old right CVA. On the he was still fairly confused but arousable. She also had supratherapeutic INR when she came in. was very adamant about her pain medication but her mental status was not appropriate enough to take the medication. She was not alert enough for that. On the she was much more awake and alert. We did resume her home medications. She was very adamant about getting IV pain medication because her back pain was so severe and her regular pain medications she did not feel were going to be adequate enough. In fact later that evening we did give her 1 dose of IV pain medication, maintained her on her regular medications. Later on that evening, she basically stated that if she was not going to get her pain under better control that she would just leave AMA. We did give her some IV pain medication for pain control and she stabilized until the next day. She did require oxygen with exertion. Her O2 saturation dropped and 87% with exertion and she already had been set up on oxygen and she was set up on further oxygen. DISCHARGE MEDICATIONS: DuoNeb 3 times daily, Lipitor 80 daily, Coreg 12.5 b.i.d., Omnicef 300 b.i.d. for 7 days, Klonopin 1 3 times daily, Plavix 75 daily, Vasotec 10 daily, [place] p.r.n., Imdur 30 at bedtime, Protonix 40 daily, promethazine, and then Coumadin will be adjusted to 5 mg Friday, Friday, Friday, Friday, and then 2.5 Friday, , Friday. She will need a repeat INR in about 48 hours. She was also given a prescription for Zofran instead of her regular medications. cc: Jose Luis Zaragoza MD
== END 2017-01-22 14:00 | disposition home or self-care (01) ==
LOC: P.ED 16:02 → SUATTDRO 18:54 → P.ICU 18:54
PROVIDERS: ATTEND Internal Medicine

== ENCOUNTER 2017-02-12 01:55 | Inpatient (IN) ==
[2017-02-12] MEDS ORDERED: SOLU-MEDROL ONE (02:02)
[2017-02-12] MEDS ORDERED: LASIX ONE (02:04)
[2017-02-12] MEDS ORDERED: NITROGLYCERIN ONE (02:06)
[2017-02-12] MEDS ORDERED: VASOTEC ONE (02:14)
[2017-02-12] MEDS ORDERED: VASOTEC IV ONE (02:19)
[2017-02-12] MEDS ORDERED: SOLU-MEDROL IV ONE (02:20)
[2017-02-12] MEDS ORDERED: NITROGLYCERIN TOP ONE (02:20)
[2017-02-12] MEDS ORDERED: LASIX IV ONE (02:20)
[2017-02-12] MEDS ORDERED: NS 1,000 ML IV ONE ×2 (02:24→03:12)
--- NOTE | 2017-02-12 02:34 | EKG Report ---
Test Performed on : 02/12/2017 02:31:08 AM Test Reason : pain Blood Pressure : / mmHG Vent. Rate : 131 BPM Atrial Rate : 131 BPM P-R Int : 140 ms QRS Dur : 090 ms QT Int : 400 ms P-R-T Axes : 070 068 064 degrees QTc Int : 590 ms Sinus tachycardia. Possible Lateral infarct , age undetermined Abnormal ECG When compared with ECG of 19-JAN-2017 16:06, T wave inversion no longer evident in Inferior leads T wave amplitude has decreased in Lateral leads Unconfirmed Result
[2017-02-12 02:36] LABS: MANUAL DIFF NEEDED? NO
[2017-02-12 02:52] LABS: BASO% 0.3 % (0.0-0.8); EOS# 0.41 X1000 (0.0-0.7); EOS% 2.7 % (0.0-10.0); HEMATOCRIT 41.5 % (37.0-47.0); IMM GRAN# 0.04 X1000 (0.0-0.04); IMM GRAN% 0.3 % (0.0-0.5); LYMPH# 2.78 X1000 (1.2-3.4); LYMPH% 18.4 % (20.5-51.1); MCH 28.9 PG (27-31); MCHC 31.3 g/dL (33-37); MCV 92.2 FL (81-99); MONO# 0.86 X1000 (0.11-0.59); MONO% 5.7 % (1.7-9.3); NEUT% 72.6 % (42.2-75.2); PLT 234 X1000 (130-400)
[2017-02-12 03:04] LABS: ALBUMIN 3.7 g/dL (3.5-5.0); CALCIUM 7.4 mg/dL (8.8-10.2); POTASSIUM 4.3 mmol/L (3.5-5.1); TOTAL BILIRUBIN 0.3 mg/dL (0.20-1.00); TOTAL PROTEIN 7.2 g/dL (6.3-8.3)
[2017-02-12] MEDS ORDERED: ZOFRAN IV PRN (03:12)
--- NOTE | 2017-02-12 03:12 | PROVIDER DOCUMENTATION ---
This chart was entered by Rocio Saunders Scribe, acting as scribe for Melquiades Hale MD. HPI-Respiratory General - General Chief Complaint: Shortness of Breath Time Seen by Provider: 02/12/17 01:55 Source: EMS Allergies/Adverse Reactions: Patient Allergies Allergy/AdvReac Type Severity Reaction Status Date / Time levofloxacin [From Levaquin] Allergy Intermediate RASH Verified 01/19/17 16:04 NSAIDS (Non-Steroidal Allergy Unknown Unknown Verified 01/19/17 16:04 Anti-Inflamma morphine AdvReac Mild HENSLEY Verified 01/19/17 16:04 Home Medications: Home Medication List Medication Instructions Recorded Confirmed Last Taken Type Carvedilol 12.5 mg PO BID 03/11/14 01/19/17 09/01/16 History Clopidogrel Bisulfate [Clopidogrel] 75 mg PO DAILY 03/11/14 01/19/17 09/01/16 History Isosorbide Mononitrate [Imdur] 30 mg PO QHS 03/11/14 01/19/17 09/01/16 History Pantoprazole [Protonix] 40 mg PO QHS 03/11/14 01/19/17 09/01/16 History ENALApril [Vasotec] 10 mg PO QHS 07/20/14 01/19/17 09/01/16 History ATORVAstatin [Lipitor] 80 mg PO QHS 08/14/15 01/19/17 09/01/16 History Clonazepam [Klonopin] 1 mg PO TID 08/15/15 01/19/17 09/01/16 History Albuterol 2.5MG/Ipratrop 0.5MG 3 ml INH TID 11/14/15 01/19/17 09/02/16 History [Duoneb (A & A)] Hydrocodone/Acetaminophen 1 each PO DIRECTED 01/19/17 01/19/17 Unknown History [Hydrocodon-Acetaminophn 10-325] Promethazine HCl [Promethazine HCl] 25 mg PO DIRECTED 01/19/17 01/19/17 Unknown History CefDINIR [Omnicef] 300 mg PO BID #14 capsule 01/22/17 Unknown Rx Ondansetron Odt [Zofran 4 mg Odt] 4 mg PO Q6H PRN PRN #25 tablet 01/22/17 Unknown Rx Warfarin [Coumadin] 5 mg PO QHS #30 tablet 01/22/17 Unknown Rx - History of Present Illness-Resp Nature of Presenting Problem: 56 Y/O F presents to ED with Respiratory Distress. Pt was brought in by EMS in critical state not being able to breathe became unresponsive en route to ED. Pt has a hx of COPD and asthma, used multiple treatments today still unable to breathe used treatments till she became unresponsive. Pt was on O2 when brought into ED. Pt was able to be woken and stated that she couldn't breath. Quality of Pain: reports: tightness Severity in ED: reports: severe Onset/Duration: reports: this morning Timing: reports: still present Cough Quality/Degree: reports: no cough Episode Frequency: chronic episodes Current Respiratory Medication Therapy: Initiated albuterol/atrovent inhale, Initiated A/A nebulizer Associated Symptoms: reports: shortness of breath. denies: dizziness, earache Review of Systems - Adult - REVIEW OF SYSTEMS - ADULT ROS:: unobtainable per condition (pt not fully alert on arrival in resp. distress) Constitutional: denies: chills, fever Past History - Adult - PAST MEDICAL HISTORY-ADULT Review of Records: reports: Old Records Reviewed, Nursing Assessment Review, Medications Reviewed, Social history reviewed & non-contributory. Major Childhood Illnesses: reports: denies history Cardiovascular: reports: CHF Respiratory: reports: COPD, pneumonia Gastrointestinal: reports: GERD Obstetrical/Gynecological: reports: denies history Genitourinary: reports: denies history Musculoskeletal: reports: chronic pain (back) Neurological: reports: CVA Psychiatric: reports: anxiety Endocrine/Immune: reports: denies history Other Conditions: reports: denies history - PRIOR SURGERIES/PROCEDURES Surgical/Procedure History: reports: appendectomy, cholecystectomy, other ( carotid artery Sx. renal stent) - PRIOR HOSPITALIZATIONS Prior Hospitalizations: reports: for similar symptoms - IMMUNIZATION STATUS Childhood Immunizations: See Nurse Assessment Flu Vaccine: See Nurse Assessment - FAMILY HISTORY Family History: reviewed, not pertinent Physical Exam-General - CONSTITUTIONAL General Appearance: severe distress, obese. negative: alert - EYES Eyes: pale conjunctivae - HEAD, EARS, NOSE, MOUTH & THROAT HENMT: negative: moist mucous membranes - RESPIRATORY Respiratory: respiratory distress, other (tachypneic) - CARDIOVASCULAR Cardiovascular: tachycardia - GASTROINTESTINAL (ABDOMEN) Abdominal Exam: non tender, soft - LYMPHATIC Lymphatic: no adenopathy - MUSCULOSKELETAL Extremity: non-tender - SKIN Integumentary: negative: normal color (pale) Progress - PLAN OF CARE/RESULTS Progress/Plan/Lab Results: Vital Signs - 8 hr 02/12/17 02:00 02/12/17 02:10 02/12/17 02:15 Temperature 100.8 F H Pulse Rate 147 H 146 H 142 H Respiratory Rate 31 H 35 H 37 H Blood Pressure 162/145 176/134 147/116 O2 Sat by Pulse Oximetry 80 L 82 L 92 L 02/12/17 02:28 02/12/17 02:40 02/12/17 02:56 Temperature 97.8 F Pulse Rate 139 H 125 H 123 H Respiratory Rate 34 H 25 H 23 Blood Pressure 128/89 108/076 107/074 O2 Sat by Pulse Oximetry 94 L 95 99 Laboratory Results - last 24 hr 02/12/17 02/12/17 02/12/17 02:30 02:30 02:30 WBC 15.08 H RBC 4.50 Hgb 13.0 Hct 41.5 MCV 92.2 MCH 28.9 MCHC 31.3 L RDW Std Deviation 14.9 H Plt Count 234 MPV 12.0 H Immature Gran % (Auto) 0.3 Neut % (Auto) 72.6 Lymph % (Auto) 18.4 L [place] % (Auto) 5.7 Eos % (Auto) 2.7 Baso % (Auto) 0.3 Immature Gran # (Auto) 0.04 Neut # (Auto) 10.95 H Lymph # (Auto) 2.78 [place] # (Auto) 0.86 H Eos # (Auto) 0.41 Baso # (Auto) 0.04 Sodium 136 Potassium 4.3 Chloride 96 L Carbon Dioxide 24 L Anion Gap 17 BUN 13 Creatinine 1.1 H Estimated GFR/1.73 m2 52 BUN/Creatinine Ratio 12 Glucose 414 H* Calculated Osmolality 290 Calcium 7.4 L Total Bilirubin 0.30 AST 15 ALT 10 Alkaline Phosphatase 108 H Troponin T < 0.010 Total Protein 7.2 Albumin 3.7 Globulin 4.0 Albumin/Globulin Ratio 1.0 Orders Category Date Time Status CHEST-1 VIEW [RAD] Stat Exams 02/12/17 02:23 Taken BNP [PRO B-NATRIURETIC PEPTIDE] Stat Lab 02/12/17 02:30 Received CBC WITH DIFF [HEME] Stat Lab 02/12/17 02:30 Completed COMPREHENSIVE METABOLIC PANEL [CHEM] Stat Lab 02/12/17 02:30 Completed TROPONIN T Stat Lab 02/12/17 02:30 Completed 0.9% Sodium Chloride Inj [Ns] 1,000 ml Med 02/12/17 02:24 Discontinued IV Wide Open Enalaprilat [Vasotec] Med 02/12/17 02:19 Discontinued 2.5 mg IV NOW ONE Furosemide [Lasix] Med 02/12/17 02:20 Discontinued 40 mg IV NOW ONE Methylprednisolone Sod Succ [Solu-Medrol] Med 02/12/17 02:20 Discontinued 125 mg IV NOW ONE Nitroglycerin Med 02/12/17 02:20 Discontinued 1 inch TOP NOW ONE CPAP Stat Oth 02/12/17 02:21 Active EKG [EKG] Stat Ther 02/12/17 02:24 Draft Result Diagrams: 02/12/17 02:30 02/12/17 02:30 - REASSESSMENT Reassessment #1 Time Reassessed: 03:00 Status: improving (MORE ALERT, COMPLAINING NOW. BP 110, O2sat 95%, RR 21, GOOD DIURESIS. SPOKE W DR. ZEPEDA ORDERS FOR ADMISSION) - EKG 1 Time of EKG reading by physician:: 02:31 EKG Read and Signed by:: Melquiades Hale EKG Interpretation (*Must complete 3 of following elements*): Normal Rate: 131 Rhythm: sinus tachycardia Comments: Abnormal ECG - XRAY 1 XRAY Study: Chest Impression: Abnormal XRAY Interpretation: CHF - CONSULTS/PCP/HOSPITALIST Notification #1 *Consult/PCP/Hospitalist*: Time Discussed: 02:47 Reason/Comments: Admit Consult Disposition: Admit (Admit Accepted) Departure - Departure Date of Disposition Decision: 02/12/17 Time of Disposition Decision: 03:11 DIAGNOSIS: Acute respiratory failure with hypoxia and hypercarbia CHF (congestive heart failure) Qualifiers: Congestive heart failure type: combined Congestive heart failure chronicity: acute on chronic Qualified Code(s): I50.43 - Acute on chronic combined systolic (congestive) and diastolic (congestive) heart failure Disposition: ADMITTED INPATIENT 09 Certified Medical Emergency: Emergent Condition: Critical - Critical Care Note This patient required my direct & personal management of CC.: Yes Attestation - Physician/ MANDO Attestation The physician spent face to face time with patient:: Yes Advanced Practice Provider documentation review:: Supervising physician onsite and consulted in the evaluation and care of this patient. The physician did have a face to face encounter with the patient. This chart was documented by the indicated scribe, (Rocio Saunders Scribe) and accurately reflects the services I performed and decisions made by me, Melquiades Hale MD, as attested by the provider's signature.
[2017-02-12 04:50] LABS: URINE CULTURE PL NEEDED? NO
[2017-02-12 05:03] LABS: BILIRUBIN URINE NEGATIVE (NEGATIVE); BLOOD URINE NEGATIVE (NEGATIVE); CLARITY CLEAR (CLEAR); COLOR YELLOW; LEUKOCYTES URINE NEGATIVE (NEGATIVE); NITRITE URINE NEGATIVE (NEGATIVE); URINE EPITHELIAL CELLS <10 /HPF (<10); URINE RBC <10 /HPF (<10); URINE SOURCE CATH; URINE WBC <10 /HPF (<10); UROBILINOGEN URINE NORMAL
--- NOTE | 2017-02-12 05:56 | EKG Report ---
Test Performed on : 02/12/2017 05:29:18 AM Test Reason : SOB Blood Pressure : / mmHG Vent. Rate : 106 BPM Atrial Rate : 106 BPM P-R Int : 120 ms QRS Dur : 088 ms QT Int : 378 ms P-R-T Axes : 033 089 019 degrees QTc Int : 502 ms Sinus tachycardia. with occasional premature ventricular complexes. Possible Lateral infarct (cited on or before 12-FEB-2017) Abnormal ECG When compared with ECG of 12-FEB-2017 02:31, (Unconfirmed) premature ventricular complexes. are now present Confirmed by Manuel Rosado MD ([id number]) on 03/12/2017 7:23:23 PM
[2017-02-12] MEDS ORDERED: DUONEB (A & A) INH PRN (06:45)
[2017-02-12] MEDS: DUONEB (A & A) INH SCH ×5 (06:45→23:56)
[2017-02-12 07:14] LABS: CALCIUM 7.4 mg/dL (8.8-10.2); POTASSIUM 4.3 mmol/L (3.5-5.1)
[2017-02-12] MEDS ORDERED: NS 1,000 ML ONE ×2 (07:21)
--- NOTE | 2017-02-12 07:26 | Diag Imaging Result Doc PS360 ---
EXAM: CHEST-1 VIEW HISTORY: SOB TECHNIQUE: Portable AP COMPARISON: 01/21/2017 FINDINGS: The lungs are well expanded. The heart is not enlarged. There are increased interstitial markings. These are more pronounced than on the prior exam. No pleural effusions identified. IMPRESSION: Worsening infiltrates. Electronically signed by Armaan Baldwin 02/12/2017 7:24 AM
[2017-02-12 08:54] LABS: INR 2.71 (0.86-1.15); PROTIME 30.9 Seconds (12.1-15.5)
[2017-02-12] MEDS ORDERED: TYLENOL PO PRN (13:27)
[2017-02-12] MEDS: NORCO-5 PO PRN ×3 (14:55→23:23)
[2017-02-12] MEDS ORDERED: ROCEPHIN 1 GM/NS 1 GM/50 ML IVPB IV SCH (16:00)
--- NOTE | 2017-02-12 16:59 | HISTORY AND PHYSICAL ---
CHIEF COMPLAINT: Shortness of breath. HISTORY OF PRESENT ILLNESS: This is a 56-year-old female who presented to the emergency room via EMS after being called due to patient having shortness of breath and becoming unresponsive. Evidently according to the report she became unresponsive en route per EMS. She did become responsive in the emergency room and was able to tell them that she could not get her breath. It is reported that she took treatments until she became "unresponsive" with no relief. On arrival to the emergency room she had a sat of 80% on a non-rebreather. She was then placed on BiPAP and within what about looks like about 15 minutes her sats came up to 94-95. She remained on BiPAP and was admitted to ICU. Sats stayed 99-100. On arrival to the emergency room she was disoriented. She was anxious and skin was mottled with vital signs as stated above. She was given a L of saline followed by 40 of Lasix in the emergency room for which she diuresed an unknown amount as she was incontinent and no Leary was placed in the emergency room. She did have a white count of 15 with a blood sugar of 414 with a chest x-ray that had increased interstitial markings per Radiology read. She was noted to be hypertensive. She was given Vasotec as well an inch of Nitrol ointment and she was admitted to ICU for further evaluation and treatment. PAST MEDICAL HISTORY: COPD, with home O2 use, coronary artery disease, [place] x2, CVA x3, congestive heart failure, gastroesophageal reflux disease, hypertension, hyperlipidemia, anxiety and obstructive sleep apnea. PAST SURGICAL HISTORY: Appendectomy, cholecystectomy, carotid artery surgery, renal stent. SOCIAL HISTORY: She lives with her who denies that she has any alcohol, tobacco or illicit drug use. ALLERGIES: Levaquin, NSAIDs and morphine. HOME MEDICATIONS: A list will be obtained. LABS: WBC is 15 with a hemoglobin of 13, hematocrit 41.5 and platelets of 234,000. INR is 2.71. Sodium is 136, potassium 4.3, BUN 13, creatinine 1.1 with a glucose of 414. Her troponin is less than 0.010. Chest x-ray revealing well expanded lungs. Heart is not enlarged. Increased interstitial markings, more pronounced on the prior exam with no pleural effusions. ASSESSMENT AND PLAN: 1. Acute respiratory failure. 2. Acute on chronic COPD exacerbation. 3. Altered mental status. Components include over-sedation as well as hypoxemia. 4. Leukocytosis likely from pneumonia. 5. Congestive heart failure, acute on chronic, combined systolic and diastolic. 6. History of cerebrovascular accident. 7. History of coronary artery disease. 8. Chronic anticoagulation secondary to CVA. PLAN: She will remain in ICU. We will give supplemental oxygen. We will continue BiPAP. We will have her on telemetry. We will hold all of her home medications as she is sedated as she is an aspiration risk. We will give Rocephin and clindamycin. Trend labs. We will give DuoNeb q.4 hours and q.2 p.r.n. We will add some steroids to taper. Further treatments pending hospital course. Dictated by RALPH Lugo for Jermaine Denis MD cc: RALPH Lugo MD
[2017-02-12] MEDS ORDERED: CALCIUM GLUCONATE 1 GM in NS 50 ML IV ONE (17:00)
[2017-02-12] MEDS: SOLU-MEDROL IV SCH (17:02)
[2017-02-12] MEDS: CLINDAMYCIN 600 MG/NS 600 MG/50 ML IVPB IV SCH (17:04)
[2017-02-12] MEDS: KLONOPIN PO SCH (20:57)
[2017-02-13] MEDS: CLINDAMYCIN 600 MG/NS 600 MG/50 ML IVPB IV SCH (01:02)
[2017-02-13] MEDS: SOLU-MEDROL IV SCH ×2 (01:02→15:30)
[2017-02-13] MEDS: NORCO-5 PO PRN ×3 (04:18→15:26)
[2017-02-13] MEDS: DUONEB (A & A) INH SCH ×6 (04:30→22:54)
[2017-02-13 06:32] LABS: AGAP 14; ALBUMIN 3.8 g/dL (3.5-5.0); ALKALINE PHOSPHATASE 87 U/L (32-104); BUN 15 mg/dL (8-22); CALCIUM 8.1 mg/dL (8.8-10.2); CHLORIDE 103 mmol/L (98-107); COSMO 288; GOT 11 U/L (10-30); GPT 11 U/L (10-36); POTASSIUM 3.9 mmol/L (3.5-5.1); SODIUM 141 mmol/L (136-145); TCO2 24 mmol/L (25-35); TOTAL PROTEIN 6.9 g/dL (6.3-8.3)
[2017-02-13 06:41] LABS: INR 2.04 (0.86-1.15); PROTIME 24.7 Seconds (12.1-15.5)
[2017-02-13 06:45] LABS: HEMATOCRIT 39.6 % (37.0-47.0); HEMOGLOBIN 12.2 g/dL (12.0-16.0); MCH 28.4 PG (27-31); MCHC 30.8 g/dL (33-37); MCV 92.1 FL (81-99); MPV 12.3 FL (7.4-10.4); RBC 4.3 XMIL (4.2-5.4)
[2017-02-13] MEDS ORDERED: CLINDAMYCIN 600 MG/NS 600 MG/50 ML IVPB IV SCH (08:23)
[2017-02-13] MEDS ORDERED: LASIX PO ONE (08:26)
--- NOTE | 2017-02-13 09:03 | PROGRESS NOTE ---
DATE: 02/13/2017 SUBJECTIVE: The patient states she is feeling much better this morning. In fact, she is asking to go home. Denies any chest pain, palpitations. Denies any fevers or chills. Does states that she is having pain and numbness in her lower extremities, which she notes is secondary to her chronic restless leg. OBJECTIVE: Vital Signs reviewed. Temperature 97 degrees, pulse 105, respiratory rate 18, BP 145/76, saturation 95% on 2 L. General: The patient is awake, alert. She is sitting up in the bed. She is in no respiratory distress. Pleasant to talk with. Neck: Supple. CV: Regular rate. Chest: Clear. ASSESSMENT: 1. Chronic obstructive pulmonary disease with moderate exacerbation. 2. Acute respiratory failure, improved. 3. Altered mental status, likely secondary to oversedation and hypoxemia. 4. Leukocytosis, resolved. 5. Pneumonia, improving. PLAN: Will decrease Solu-Medrol. Will change antibiotics to p.o. Discussed with patient, the perils of smoking, although she declines that her cigarettes, opiates, or benzodiazepines had any effect on her current respiratory failure. Did discuss at great length with the patient that despite her disagreement, that thousands of people across [place] due to this combination. Will continue to follow. Will attempt to decrease her medications. Further orders as needed. cc: Jermaine Denis MD
[2017-02-13] MEDS: CLEOCIN PO SCH ×2 (09:11→18:08)
[2017-02-13] MEDS: OMNICEF PO SCH ×2 (09:12→20:27)
[2017-02-13] MEDS: KLONOPIN PO SCH ×3 (09:12→18:08)
[2017-02-13] MEDS ORDERED: KLONOPIN PO SCH (20:37)
[2017-02-14] MEDS: CLEOCIN PO SCH ×2 (00:04→10:12)
[2017-02-14] MEDS: SOLU-MEDROL IV SCH ×2 (00:04→12:15)
[2017-02-14] MEDS: NORCO-5 PO PRN ×2 (00:22→04:11)
[2017-02-14] MEDS: DUONEB (A & A) INH SCH ×2 (03:17→07:38)
[2017-02-14 06:09] LABS: INR 1.63 (0.86-1.15); PROTIME 20.6 Seconds (12.1-15.5)
[2017-02-14] MEDS ORDERED: KLONOPIN PO PRN (07:42)
[2017-02-14] MEDS ORDERED: NORCO-10 PO PRN ×2 (07:45→07:50)
[2017-02-14] MEDS ORDERED: PLAVIX PO SCH (09:00)
[2017-02-14] MEDS: KLONOPIN PO SCH ×2 (10:12→12:15)
[2017-02-14] MEDS: OMNICEF PO SCH (10:14)
[2017-02-14] MEDS ORDERED: COUMADIN PO ONE (11:17)
[2017-02-14 11:36] VITALS: BP 165/74
--- NOTE | 2017-02-14 16:17 | DISCHARGE SUMMARY ---
ADMISSION DATE: 02/12/2017 DISCHARGE DATE: 02/14/2017 DIAGNOSES: 1. Acute respiratory failure resolved. 2. Acute on chronic obstructive pulmonary disease exacerbation. 3. Altered mental status resolved. 4. Leukocytosis. This has resolved. 5. Congestive heart failure combined systolic and diastolic. 6. History of cerebrovascular accident. 7. History of coronary artery disease. 8. Chronic anticoagulation secondary to cerebrovascular accident. 9. Pneumonia. PROCEDURES: 1. 02/12/2017, chest x-ray revealed increased interstitial markings. No pleural effusions. Heart is not enlarged. Lungs are well expanded. 2. EKG reveals sinus tachycardia with occasional PVCs at a rate of 106. HOSPITAL COURSE: Ms. Gregory presented to the emergency room complaining of shortness of breath. She was unresponsive en route having O2 saturation of 80% on a non-rebreather. She was paced placed on BiPAP. She was monitored in ICU. We did hold any sedating medications. She was treated with DuoNebs q.4 hours and q.2h p.r.n. steroids to taper. She did respond to treatments once she was awake and alert. She maintained saturations of 98-100% and was complaint free. Today she has maintained of 98-99% on room air with no shortness of breath, dyspnea on exertion, PND, orthopnea. DISCHARGE PHYSICAL EXAMINATION: General: The patient is awake and alert. Sitting up on the side of the bed, eating. Cardiovascular: Regular rate and rhythm. S1 and S2 appreciated. Neck: No CVAT. No spine tenderness. Pulmonary: Breath sounds are clear with no increased work of breathing noted. Chest does rise and fall symmetrically with respiration. Gastrointestinal: Abdomen is soft, nontender, nondistended with bowel sounds in all 4 quadrants. Extremities: No clubbing, cyanosis, or edema. Pulses are palpable x4. Calves are nontender. DISCHARGE MEDICATIONS: 1. DuoNeb q.4 hours p.r.n. 2. Carvedilol 12.5 at bedtime. 3. Lipitor 80 at bedtime. 4. Phenergan 25 mg as directed. 5. Imdur 30 mg at bedtime. 6. Vasotec 10 at bedtime. 7. Plavix 75 daily. 8. Klonopin 1 mg t.i.d. 9. Protonix 40 mg at bedtime. 10. Warfarin 5 mg at bedtime. 11. Hydrocodone 10, as directed. 12. Steroid Dosepak. 13. Omnicef 300 mg p.o. t.i.d. for 5 days. DISCHARGE VITAL SIGNS: Blood pressure is 127/75, heart rate of 90, respirations are 18, temperature is 98 degrees with room air saturation of 98%. DISCHARGE ACTIVITY: As tolerated. DISCHARGE DIET: Healthy heart. DISCHARGE INSTRUCTIONS: Once again, we did discuss the perils of smoking with the patient, especially in the setting of her respiratory status. We also once again did discuss with the patient the perils of continuing opiates and benzodiazepines in regards to her respiratory status and her recent episode of respiratory failure. The patient states that cigarettes nor her medications had anything to do with her respiratory failure. She states that her pneumonia did and that she has no plans on changing any of her medication regimen nor does she plan on stopping smoking. FOLLOWUP: She is to follow up with her primary care physician at the next scheduled appointment. She needs to have her INR checked Friday. DISPOSITION: She is being discharged home in stable condition with her . She has been instructed to call to be seen sooner or return to the emergency room for any shortness of breath, chest pain, dizziness, syncope, palpitations, any change in mental status, any difficulties breathing, or any questions or concerns that she may have. Dictated by RAPLH Lugo for Jermaine Denis MD cc: RALPH Lugo MD
[2017-02-14] MEDS ORDERED: IMDUR PO SCH (21:00)
[2017-02-14] MEDS ORDERED: COREG PO SCH (21:00)
[2017-02-14] MEDS ORDERED: VASOTEC PO SCH (21:00)
[2017-02-14] MEDS ORDERED: LIPITOR PO SCH (21:00)
[2017-02-14] MEDS ORDERED: COUMADIN PO SCH (21:00)
[2017-02-14] MEDS ORDERED: PROTONIX PO SCH (21:00)
== END 2017-02-14 12:40 | disposition home or self-care (01) ==
LOC: P.ED 01:55 → P.ICU 04:23 → P.MEDSURG 23:08
PROVIDERS: ATTEND Family Medicine

== ENCOUNTER 2017-03-21 23:14 | Inpatient (IN) ==
[2017-03-21] MEDS ORDERED: SOLU-MEDROL IV ONE (23:32)
[2017-03-21] MEDS ORDERED: DUONEB (A & A) INH ONE (23:34)
[2017-03-21] MEDS ORDERED: PULMICORT INH ONE (23:37)
[2017-03-22 00:22] LABS: AGAP 12; ALBUMIN 3.8 g/dL (3.5-5.0); ALKALINE PHOSPHATASE 94 U/L (32-104); BUN 14 mg/dL (8-22); CALCIUM 9.1 mg/dL (8.8-10.2); CHLORIDE 100 mmol/L (98-107); COSMO 288; GOT 18 U/L (10-30); GPT 12 U/L (10-36); POTASSIUM 4.7 mmol/L (3.5-5.1); SODIUM 140 mmol/L (136-145); TCO2 28 mmol/L (25-35); TOTAL PROTEIN 7.3 g/dL (6.3-8.3)
[2017-03-22] MEDS ORDERED: DILAUDID IV ONE (01:10)
[2017-03-22 01:18] LABS: BASO% 0.2 % (0.0-0.8); EOS# 0.05 X1000 (0.0-0.7); EOS% 0.4 % (0.0-10.0); HEMATOCRIT 40.6 % (37.0-47.0); HEMOGLOBIN 12.7 g/dL (12.0-16.0); IMM GRAN# 0.04 X1000 (0.0-0.04); IMM GRAN% 0.3 % (0.0-0.5); LYMPH# 0.93 X1000 (1.2-3.4); LYMPH% 6.7 % (20.5-51.1); MANUAL DIFF NEEDED? NO; MCH 29.5 PG (27-31); MCHC 31.3 g/dL (33-37); MCV 94.4 FL (81-99); MONO# 0.38 X1000 (0.11-0.59); MONO% 2.7 % (1.7-9.3); MPV 12.1 FL (7.4-10.4); NEUT% 89.7 % (42.2-75.2); PLT 262 X1000 (130-400)
[2017-03-22] MEDS ORDERED: ZOSYN 3.375 GM in NS 50 ML IV ONE (01:22)
[2017-03-22] MEDS ORDERED: PHENERGAN PO PRN (06:10)
[2017-03-22] MEDS ORDERED: TYLENOL PO PRN (06:22)
[2017-03-22] MEDS ORDERED: ALBUTEROL NEB INH PRN (06:30)
[2017-03-22] MEDS: KLONOPIN PO PRN ×2 (06:50→14:43)
[2017-03-22] MEDS ORDERED: PROTONIX PO SCH ×2 (07:00→21:00)
[2017-03-22] MEDS ORDERED: ZITHROMAX 500 MG/NS 500 MG/250 ML IVPB IV SCH (07:00)
[2017-03-22 07:12] LABS: BASO% 0.1 % (0.0-0.8); HEMATOCRIT 38.6 % (37.0-47.0); HEMOGLOBIN 11.5 g/dL (12.0-16.0); IMM GRAN# 0.02 X1000 (0.0-0.04); IMM GRAN% 0.3 % (0.0-0.5); LYMPH# 0.52 X1000 (1.2-3.4); LYMPH% 6.6 % (20.5-51.1); MANUAL DIFF NEEDED? YES; MCH 28.5 PG (27-31); MCHC 29.8 g/dL (33-37); MCV 95.8 FL (81-99); MONO# 0.07 X1000 (0.11-0.59); MONO% 0.9 % (1.7-9.3); MPV 11.6 FL (7.4-10.4); NEUT% 92.1 % (42.2-75.2); PLT 226 X1000 (130-400); RBC 4.03 XMIL (4.2-5.4)
[2017-03-22 07:18] LABS: AGAP 10; BUN 12 mg/dL (8-22); CALCIUM 8.8 mg/dL (8.8-10.2); CHLORIDE 104 mmol/L (98-107); COSMO 281; POTASSIUM 4.5 mmol/L (3.5-5.1); SODIUM 139 mmol/L (136-145); TCO2 26 mmol/L (25-35)
[2017-03-22 08:10] VITALS: BP 113/57
[2017-03-22 08:46] LABS: INR 3.28 (0.86-1.15); PROTIME 35.9 Seconds (12.1-15.5)
[2017-03-22 08:50] LABS: LYMPHS 4 % (21-51)
[2017-03-22 08:51] LABS: HYPOCHROM OCCASIONAL
[2017-03-22] MEDS ORDERED: COREG PO SCH ×2 (09:00→21:00)
[2017-03-22] MEDS ORDERED: IMDUR PO SCH ×2 (09:00→21:00)
[2017-03-22] MEDS ORDERED: LASIX IV SCH (09:00)
[2017-03-22] MEDS ORDERED: PLAVIX PO SCH ×2 (09:00→10:45)
[2017-03-22] MEDS ORDERED: VASOTEC PO SCH ×2 (09:00→21:00)
[2017-03-22] MEDS ORDERED: NORCO-10 PO PRN (10:45)
[2017-03-22] MEDS ORDERED: PHENERGAN PO SCH (10:45)
[2017-03-22] MEDS ORDERED: SOLU-MEDROL IV SCH (11:00)
[2017-03-22] MEDS ORDERED: KLONOPIN PO SCH (13:00)
[2017-03-22] MEDS ORDERED: ZOSYN 3.375 GM in NS 50 ML IV SCH (14:00)
[2017-03-22] MEDS ORDERED: COUMADIN PO SCH (21:00)
[2017-03-22] MEDS ORDERED: LIPITOR PO SCH ×2 (21:00)
[2017-03-23] MEDS ORDERED: LASIX PO SCH (09:00)
[2017-03-23] MEDS ORDERED: PLAVIX PO SCH (21:00)
[2017-03-23] MEDS ORDERED: COUMADIN PO SCH (21:00)
== END 2017-03-22 16:25 | disposition home or self-care (01) ==
LOC: P.ED 23:14 → P.MEDSURG 23:14 → OBSVTOIN 03-22 02:02
PROVIDERS: ATTEND Internal Medicine

== ENCOUNTER 2018-08-12 01:35 | Inpatient (IN) ==
[2018-08-12] MEDS ORDERED: DIPRIVAN 1% 1,000 MG/100 ML BOTTLE ONE (01:56)
[2018-08-12] MEDS ORDERED: DUONEB (A & A) INH ONE ×2 (01:58→03:13)
[2018-08-12] MEDS ORDERED: DIPRIVAN 1% 1,000 MG/100 ML BOTTLE IV SCH (02:00)
[2018-08-12] MEDS: DIPRIVAN 1% 1,000 MG/100 ML BOTTLE IV SCH ×4 (02:00→20:56)
[2018-08-12] MEDS ORDERED: NORCURON ONE (02:00)
[2018-08-12] MEDS ORDERED: STERILE WATER INJ. ONE (02:01)
[2018-08-12] MEDS ORDERED: AMIDATE ONE (02:01)
--- NOTE | 2018-08-12 02:08 | PROVIDER DOCUMENTATION ---
HPI-Respiratory General - General Stated Complaint: resp. distress Time Seen by Provider: 08/12/18 01:35 Allergies/Adverse Reactions: Patient Allergies Allergy/AdvReac Type Severity Reaction Status Date / Time levofloxacin [From Levaquin] Allergy Intermediate RASH Verified 07/07/18 07:44 NSAIDS (Non-Steroidal Allergy Unknown Unknown Verified 07/07/18 07:44 Anti-Inflamma Home Medications: Home Medication List Medication Instructions Recorded Confirmed Last Taken Type Isosorbide Mononitrate [Imdur] 30 mg PO QHS 03/11/14 08/12/18 07/06/18 History ATORVAstatin [Lipitor] 80 mg PO QHS 08/14/15 08/12/18 07/06/18 History Albuterol 2.5MG/Ipratrop 0.5MG 3 ml INH Q6H #120 neb 11/01/17 08/12/18 07/06/18 Rx [Duoneb (A & A)] Clonazepam 0.5 mg PO TID 11/11/17 08/12/18 07/06/18 History Enalapril Maleate 10 mg PO DAILY 11/11/17 08/12/18 07/06/18 History Clopidogrel Bisulfate [Plavix] 75 mg PO DAILY 03/22/18 08/12/18 07/06/18 History Warfarin Sodium 1 tab PO DIRECTED 03/22/18 08/12/18 07/06/18 History Furosemide [Lasix] 80 mg PO DAILY tablet 04/05/18 08/12/18 07/06/18 Rx Magnesium Oxide [Mag-Ox] 1,600 mg PO DAILY 05/04/18 08/12/18 07/06/18 History Carvedilol [Coreg] 12.5 mg PO QHS 07/18/18 08/12/18 Unknown History Carvedilol [Coreg] 25 mg PO QAM 07/18/18 08/12/18 Unknown History Potassium Chloride 1 tab PO DAILY 07/18/18 08/12/18 Unknown History Prednisone 60 mg PO DAILY #15 tab 07/18/18 08/12/18 Unknown Rx Ranitidine HCl [Zantac] 150 mg PO DAILY 07/18/18 08/12/18 Unknown History - History of Present Illness-Resp Nature of Presenting Problem: 57 y/o female patient with chronic respiratory failure on home oxygen, chf, cad , brought by EMS due to respiratory failure and altered mental status. Patient was brought in being bagged; initial O2 saturation as per EMS was the 50s. At time of arrival it was in the 70s. No family at bedside at time of arrival. Bagging was continued till saturations were in the upper 80s. Airway was secured with intubation and mechanical ventilation. Review of Systems - Adult - REVIEW OF SYSTEMS - ADULT ROS:: unobtainable per condition Constitutional: reports: other (unobtainable) Past History - Adult - PAST MEDICAL HISTORY-ADULT Review of Records: reports: Old Records Reviewed, Nursing Assessment Review Major Childhood Illnesses: reports: denies history Cardiovascular: reports: CAD, CHF, hyperlipidemia, [place] Respiratory: reports: COPD, pneumonia (was treated last hospitalization), other (hx of respiratory failure, hypoxia, hypercarbia) Gastrointestinal: reports: GERD Obstetrical/Gynecological: reports: denies history Genitourinary: reports: denies history Musculoskeletal: reports: chronic pain Neurological: reports: CVA Psychiatric: reports: anxiety Endocrine/Immune: reports: denies history Other Conditions: reports: denies history - PRIOR SURGERIES/PROCEDURES Surgical/Procedure History: reports: other, appendectomy, cholecystectomy - PRIOR HOSPITALIZATIONS Prior Hospitalizations: reports: for similar symptoms - IMMUNIZATION STATUS Childhood Immunizations: See Nurse Assessment Flu Vaccine: See Nurse Assessment - FAMILY HISTORY Family History: reviewed, not pertinent Physical Exam-General - CONSTITUTIONAL General Appearance: obese, obtunded - EYES Eyes: PERRL/EOMI, pink conjunctivae - HEAD, EARS, NOSE, MOUTH & THROAT HENMT: normocephalic/atraumatic, moist mucous membranes - RESPIRATORY Respiratory: respiratory distress, decreased breath sounds, other (patient foaming by mouth) - CARDIOVASCULAR Cardiovascular: tachycardia - GASTROINTESTINAL (ABDOMEN) Abdominal Exam: normal bowel sounds, soft - SKIN Integumentary: normal color - NEUROLOGIC Neurologic: other (obtunded, moving limbs non purposefully) Progress - PLAN OF CARE/RESULTS Progress/Plan/Lab Results: Orders Category Date Time Status Admit - [facility] Routine AdmDCTranf 08/12/18 05:11 Active Activity - Up with Assistance ORDERED Care 08/12/18 05:11 Inactive FSBS/Accucheck Result AC + HS Care 08/12/18 05:11 Active Intake and Output-Strict ORDERED Care 08/12/18 05:11 Active Nursing- MD Consult Request ROUTINE Care 08/12/18 05:11 Completed Update & Confirm Home Medicati ROUTINE Care 08/12/18 05:11 Active Vital Signs Order Q 8-HR ASSESS Care 08/12/18 05:11 Inactive Z-Document. for Tele Applied ORDERED Care 08/12/18 05:11 Completed Physician/Provider Consults Routine Cons 08/12/18 05:11 Ordered NPO Diet 08/12/18 05:12 Active CHEST-PORTABLE [RAD] Stat Exams 08/12/18 01:54 Completed CHEST/ABD TUBE PLACEMENT [RAD] Routine Exams 08/12/18 09:00 Completed A1C HGB W EST AVG GLUCOSE [CHEM] Routine Lab 08/13/18 04:15 Completed ABG [RESP] Routine Lab 08/12/18 01:57 Completed CBC WITH ELECTRONIC DIFF [HEME] Stat Lab 08/12/18 01:45 Completed COMPREHENSIVE METABOLIC PANEL [CHEM] Stat Lab 08/12/18 01:45 Completed LIPID PROFILE W/CALC LDL [LIPIDS] Routine Lab 08/13/18 04:15 Completed MAGNESIUM [CHEM] Routine Lab 08/13/18 04:15 Completed PRO B-NATRIURETIC PEPTIDE Stat Lab 08/12/18 01:45 Completed PROTIME WITH INR [COAG] Stat Lab 08/12/18 01:45 Completed TROPONIN T Q6H Lab 08/12/18 07:23 Completed TROPONIN T Q6H Lab 08/12/18 12:10 Completed TROPONIN T Stat Lab 08/12/18 01:45 Completed TSH Routine Lab 08/13/18 04:15 Completed 0.9% Sodium Chloride Inj [Ns] 90 ml Med 08/12/18 05:11 Active Furosemide [Lasix] 100 mg IV 5 mg/hr Acetaminophen [Tylenol] Med 08/12/18 05:11 Active 650 mg PO Q6H PRN PRN Albuterol 2.5MG/Ipratrop 0.5MG [Duoneb (A & A)] Med 08/12/18 01:58 Discontinued 3 ml INH NOW ONE Albuterol 2.5MG/Ipratrop 0.5MG [Duoneb (A & A)] Med 08/12/18 03:13 Discontinued 3 ml INH NOW ONE Albuterol 2.5MG/Ipratrop 0.5MG [Duoneb (A & A)] Med 08/12/18 07:30 Active 3 ml INH RTQ4H.WA Enoxaparin [Lovenox] Med 08/12/18 05:11 Discontinued 40 mg SUBQ Q24H Etomidate [Amidate] Med 08/12/18 03:12 Discontinued 10 mg IV NOW ONE Etomidate [Amidate] Med 08/12/18 02:01 Discontinued 40 mg .ROUTE .STK-MED ONE Furosemide [Lasix] Med 08/12/18 03:14 Discontinued 60 mg IV NOW ONE Insulin Glargine [Basaglar] Med 08/12/18 09:00 Active 30 unit SUBQ DAILY Insulin Lispro [Humalog] Med 08/12/18 07:00 Active See Protocol SUBQ 0700,1100,1600,2100 Morphine Med 08/12/18 03:04 Discontinued 2 mg .ROUTE .STK-MED ONE Morphine Med 08/12/18 03:13 Discontinued 2 mg IV NOW ONE Morphine Med 08/12/18 05:11 Active 2 mg IV Q3H PRN PRN Ondansetron [Zofran] Med 08/12/18 05:11 Active 4 mg IV Q4H PRN PRN Pantoprazole [Protonix] Med 08/12/18 09:00 Active 40 mg IV DAILY Piperacillin/Tazobactam [Zosyn] 3.375 gm Med 08/12/18 03:13 Discontinued 0.9% Sodium Chloride Inj [Ns] 50 ml IV NOW Piperacillin/Tazobactam [Zosyn] 3.375 gm Med 08/12/18 09:30 Discontinued 0.9% Sodium Chloride Inj [Ns] 50 ml IV Q6H Propofol [Diprivan 1%] Med 08/12/18 01:56 Discontinued 1,000 mg in 100 ml .ROUTE As Directed Propofol [Diprivan 1%] Med 08/12/18 02:00 Discontinued 1,000 mg in 100 ml IV As Directed Sodium Chloride 0.9% Med 08/12/18 05:11 Discontinued 10 ml INJ NOW ONE Vecuronium [Norcuron] Med 08/12/18 02:00 Discontinued 10 mg .ROUTE .STK-MED ONE Vecuronium [Norcuron] Med 08/12/18 03:12 Discontinued 10 mg IV NOW ONE Water, Sterile Inj [Sterile Water Inj] Med 08/12/18 02:01 Discontinued 10 ml .ROUTE .STK-MED ONE Aerosol Treatments Routine Oth 08/12/18 01:59 Completed Aerosol Treatments Routine Oth 08/12/18 03:14 Completed Aerosol Treatments Routine Oth 08/12/18 05:11 Completed Aerosol Treatments Stat Oth 08/12/18 01:59 Completed Aerosol Treatments Stat Oth 08/12/18 03:14 Completed Aerosol Treatments Stat Oth 08/12/18 05:11 Completed Telemetry [OM.EQ] Routine Oth 08/12/18 05:11 Active ECHO COMPL W/Contrast Definity Routine Ther 08/12/18 12:00 Completed EKG [EKG] Stat Ther 08/12/18 01:58 Draft Transfer/Admit Order [TRANSFER] Routine Transfer 08/12/18 03:15 Completed Result Diagrams: 08/14/18 04:10 08/14/18 04:10 - CHANGE OF SHIFT REPORT (ED Provider) Report Given and Care Transferred to:: Dr. So Time of Transfer: 02:24 Procedures - INTUBATION Time of Intubation: 01:45 Airway Evaluation: Abnormal 3-3-2 rule, Obese, Large tongue, Copious Secretions Intubation Method: orotracheal (etomidate 10mg and vecuronium 10mg given prior to intubation) Equipment: ETT Tube Size (cm): 7.5 Pretreated with 100% Oxygen?: Yes Breath Sounds after Intubation: equal ETT Primary Tube Confirmation: Capnometry CO2 Change, Direct Visualization, Chest Rise and Fall, Tube placement verified on XRAY Intubation Complications: no complications Vent Settings: See Respiratory Therapy Notes Departure - Departure Date of Disposition Decision: 08/12/18 Time of Disposition Decision: 03:15 DIAGNOSIS: Acute respiratory failure Qualifiers: Respiratory failure complication: hypercapnia Qualified Code(s): J96.02 - Acute respiratory failure with hypercapnia Pulmonary edema Qualifiers: Chronicity: acute Qualified Code(s): J81.0 - Acute pulmonary edema Bilateral pneumonia Qualifiers: Pneumonia type: due to unspecified organism Lung location: unspecified part of lung Qualified Code(s): J18.9 - Pneumonia, unspecified organism Acute myocardial infarction Qualifiers: Myocardial infarction type: unspecified Involved coronary artery: unspecified coronary artery Qualified Code(s): I21.9 - Acute myocardial infarction, unspecified Disposition: ADMITTED INPATIENT 09 Certified Medical Emergency: Emergent Condition: Critical - Critical Care Note This patient required my direct & personal management of CC.: Yes Total Time (mins): 45 Critical Care Statement: This patient required my direct personal management to treat or rule out processes, the absence of which, could potentiallly result in sudden, clinically significant life or limb threatening deterioration. Attestation - Physician/ MANDO Attestation The physician spent face to face time with patient:: Yes Advanced Practice Provider documentation review:: Supervising physician onsite and consulted in the evaluation and care of this patient. The physician did have a face to face encounter with the patient.
[2018-08-12 02:25] LABS: ALLEN TEST YES; BE 2.5 mmoll (-3.0-3.0); BLOOD TYPE ARTERIAL; HCO3-(ACT) 26.7 mmoll (20.0-26.0); METHB 0.9 % (0.0-1.5); O2HB 91.3 % (95.0-99.0); PO2(98.6) 78 mmHg (60-100); SAMPLE BLOOD; SAO2 95.7 % (95.0-100.0); SRATE 18 BPM; THB 12.4 g/dL (11.5-17.4); TVOL 600 mL; pH(98.6) 7.23 (7.35-7.45)
[2018-08-12 02:26] LABS: MODALITY VENTILATOR
[2018-08-12 02:28] LABS: PCO2(98.6) 77 mmHg (35-45)
[2018-08-12 02:37] LABS: BASO# 0.07 X1000 (0.0-0.2); BASO% 0.4 % (0.0-0.8); EOS# 0.44 X1000 (0.0-0.7); EOS% 2.2 % (0.0-10.0); HEMATOCRIT 42.2 % (37.0-47.0); IMM GRAN# 0.12 X1000 (0.0-0.04); IMM GRAN% 0.6 % (0.0-0.5); LYMPH# 6.54 X1000 (1.2-3.4); LYMPH% 32.8 % (20.5-51.1); MCH 26.1 PG (27-31); MCHC 28.4 g/dL (33-37); MCV 91.7 FL (81-99); MONO# 1.21 X1000 (0.11-0.59); MONO% 6.1 % (1.7-9.3); MPV 12.4 FL (7.4-10.4); NEUT# 11.58 X1000 (1.4-6.5); NEUT% 57.9 % (42.2-75.2); PLT 390 X1000 (130-400); WBC 19.96 X1000 (4.8-10.8)
[2018-08-12 02:56] LABS: ALB/GLOB RATIO 0.9; ALBUMIN 3.8 g/dL (3.5-5.0); CALCIUM 8.6 mg/dL (8.8-10.2); POTASSIUM 3.7 mmol/L (3.5-5.1); TOTAL BILIRUBIN 0.2 mg/dL (0.20-1.00); TOTAL PROTEIN 8.1 g/dL (6.3-8.3)
[2018-08-12] MEDS ORDERED: MORPHINE ONE (03:04)
[2018-08-12] MEDS ORDERED: AMIDATE IV ONE (03:12)
[2018-08-12] MEDS ORDERED: NORCURON IV ONE (03:12)
[2018-08-12] MEDS ORDERED: ZOSYN 3.375 GM in NS 50 ML IV ONE (03:13)
[2018-08-12] MEDS ORDERED: MORPHINE IV ONE (03:13)
[2018-08-12] MEDS ORDERED: LASIX IV ONE (03:14)
[2018-08-12 04:11] LABS: INR 1.44; PROTIME 18.7 Seconds (11.0-16.0)
[2018-08-12] MEDS ORDERED: LOVENOX SUBQ SCH (05:11)
[2018-08-12] MEDS ORDERED: TYLENOL PO PRN (05:11)
[2018-08-12] MEDS ORDERED: SODIUM CHLORIDE 0.9% INJ ONE (05:11)
[2018-08-12] MEDS ORDERED: ZOFRAN IV PRN (05:11)
--- NOTE | 2018-08-12 05:18 | Diag Imaging Result Doc PS360 ---
EXAM: CHEST-PORTABLE HISTORY: intubation TECHNIQUE: Portable chest with upper abdomen, two views COMPARISON: 07/18/2018 FINDINGS: The lungs are well expanded. Endotracheal and nasogastric tubes are in good position. There are bilateral infiltrates/pulmonary edema. Heart is borderline mildly prominent. No pleural effusions identified. IMPRESSION: 1. Endotracheal and nasogastric tubes in good position. 2. Pulmonary edema versus pneumonia Electronically signed by Armaan Baldwin 08/12/2018 5:16 AM
[2018-08-12] MEDS: SODIUM CHLORIDE 0.9% INJ SCH (05:30)
[2018-08-12] MEDS: LASIX 100 MG in NS 90 ML IV SCH (06:10)
[2018-08-12] MEDS: HUMALOG SUBQ SCH ×4 (06:34→20:45)
--- NOTE | 2018-08-12 06:42 | HISTORY AND PHYSICAL ---
REASON FOR ADMISSION: Acute shortness of breath. HISTORY OF PRESENT ILLNESS: Ms. Stephanie Tillman is a 57-year-old lady with past medical history of atrial fibrillation, chronic pain syndrome, type 2 diabetes, COPD, opioid dependence. Also has a history of hypertension, COPD, prior CVA, nicotine dependence. She was last admitted here in late April of last year. She was brought in today because she developed acute shortness of breath and has been on a ventilator after surgery on 3 separate occasions. She also has a history of acute diastolic heart failure. Her last echo done in November of last year showed an EF of 60%. As stated earlier, the patient came today because she had been progressively short of breath for the last 4 days. Early as of this morning, she developed what the described as PND and awakened him. She tried to ramp up her O2 to achieve relief but this did not help. She rapidly progressed to acute respiratory distress. called EMS. They put her on a CPAP machine. When the EMS tech that she was not getting any better, tried bagging her. On arrival to the ER, she had to be intubated. Prior to intubation, a lot of fluffy secretions were coming out of her mouth. She was then successfully intubated and currently sedated. I asked the spouse if she had any antecedent chest pain. He said no. He also states that she has been compliant with her medication although not with her diet. REVIEW OF SYSTEMS: Cannot be obtained directly from the patient because she is on a ventilator. denies any diarrhea, any fever or chills. No contact with anybody with respiratory illnesses. Otherwise no findings in HPI obtained from the nurse and spouse at bedside. ALLERGIES: Levaquin and nonsteroidals. HOME MEDICATIONS: Home medications are yet to be reconciled. FAMILY HISTORY: Notable for heart disease and end-stage kidney disease. SOCIAL HISTORY: Still smokes 1/2 pack a day. Lives with her spouse who has a very somewhat hostile relationship with their daughter because he states that she tried to drug her mother and steal her medications, and does not want the daughter to be anywhere near the patient. No alcohol or illicit drug use, although she is prescribed opiates for chronic pain. PAST SURGICAL HISTORY: Middle artery stent placed, CEA, and cholecystectomy. LABORATORY DATA: White count 19,000, H and H 12 and 42, platelets 390 with normal differential. Glucose 426, BUN 50, creatinine 1.0. AST 36, ALT 22, alkaline phosphatase 110. Troponin 0.039. ProBNP is 2700. Blood gas: pH 7.23, pCO2 77, pO2 78, bicarb 26. This is on 100% FIO2. Chest film showed increased vascular markings bilaterally. EKG showed sinus tachycardia with ST depressions in the inferior lateral leads. PHYSICAL EXAMINATION: GENERAL: Morbidly obese, middle-aged woman who is sedated on a ventilator. She has an OG tube in place. VITAL SIGNS: Heart rate is 126, respirations 18, blood pressure 134/92. She is 97% on ventilator. Afebrile. HEENT: Head is normocephalic, atraumatic. Eyes: Pupils are miotic and she is slightly tearing. Otherwise she is anicteric and no pale. ENT and oropharynx exam shows OG tube in place. No central cyanosis visualized. NECK: Short and thick. No JVD noted. No thyromegaly visualized. CHEST: Decreased air entry in both acosta with a few scattered wheezes in the bases. CARDIOVASCULAR: First and second heart sounds heard. No gallops, murmurs or rubs. Rhythm is regular. ABDOMEN: Protuberant, soft. No rigidity noted. No masses apparently. Bowel sounds are hypoactive. RECTAL: Deferred. EXTREMITIES: Pulse volume is slightly diminished but they are warm, regular. No edema, clubbing or peripheral cyanosis. NEUROLOGIC SYSTEM: Could not be ascertained because the patient is heavily sedated although she was moving her upper extremities spontaneously. SKIN: Intact with no breakdown, lesions, or erythema. MUSCULOSKELETAL: Grossly normal. ASSESSMENT: 1. Acute respiratory failure probably secondary to acute congestive heart failure with possible aspiration pneumonia. 2. Acute diastolic heart failure. 3. Aspiration pneumonia. 4. Type 2 diabetes, well controlled. 5. Hypertensive heart disease. 6. Chronic obstructive pulmonary disease. 7. Paroxysmal atrial fibrillation. PLAN: The patient will be started on aggressive diuresis and continued on a Lasix drip for the next 24 hours. Scheduled nebulizer treatments will also be administered. Will consult Dr. Bowens for vent management. Will start the patient on empiric IV antibiotics, i.e. Zosyn to cover for anaerobic pathogens. Do daily labs. Order ABGs and chest films later today. Peptic ulcer disease and deep venous thrombosis prophylaxis will be instituted. Lantus and sliding scale will also be started. Further orders will depend on the patient's home medications. The patient from my assessment does not appear to be a compliant patient with medications and diet, the latter confirmed by the . This may have precipitated the patient's exacerbation on this occasion. Also she continues to smoke and this too may also be playing a part in her symptomatology. Critical care time for this patient was estimated at 35 minutes. cc: MD Vale Nation
--- NOTE | 2018-08-12 07:08 | EKG Report ---
Test Performed on : 08/12/2018 03:16:45 AM Test Reason : ams Blood Pressure : / mmHG Vent. Rate : 111 BPM Atrial Rate : 111 BPM P-R Int : 140 ms QRS Dur : 090 ms QT Int : 348 ms P-R-T Axes : 058 089 228 degrees QTc Int : 473 ms Sinus tachycardia. Marked ST abnormality, possible anterior subendocardial injury Abnormal ECG When compared with ECG of 18-JUL-2018 00:35, (Unconfirmed) Vent. rate has increased BY [address] now depressed in Anterolateral leads T wave inversion no longer evident in Inferior leads T wave inversion now evident in Anterior leads Unconfirmed Result
[2018-08-12] MEDS: DUONEB (A & A) INH SCH ×5 (07:30→23:16)
[2018-08-12] MEDS ORDERED: ASPIRIN PR ONE (08:23)
[2018-08-12 08:37] LABS: ALLEN TEST YES; BE 13.8 mmoll (-3.0-3.0); BLOOD TYPE ARTERIAL; HCO3-(ACT) 35.7 mmoll (20.0-26.0); METHB 1.4 % (0.0-1.5); O2(CT) 15.7 mL/dL (15.0-23.0); O2HB 96.9 % (95.0-99.0); PCO2(98.6) 35 mmHg (35-45); PO2(98.6) 272 mmHg (60-100); SAMPLE BLOOD; SAO2 99.9 % (95.0-100.0); SRATE 20 BPM; TVOL 600 mL
--- NOTE | 2018-08-12 08:46 | EKG Report ---
Test Performed on : 08/12/2018 08:43:56 AM Test Reason : elevated troponin Blood Pressure : / mmHG Vent. Rate : 103 BPM Atrial Rate : 103 BPM P-R Int : 126 ms QRS Dur : 084 ms QT Int : 386 ms P-R-T Axes : 061 082 -22 degrees QTc Int : 505 ms Sinus tachycardia. Cannot rule out Inferior infarct , age undetermined ST & T wave abnormality, consider anterolateral ischemia Abnormal ECG When compared with ECG of 12-AUG-2018 03:16, (Unconfirmed) ST less depressed in Anterior leads Nonspecific T wave abnormality now evident in Inferior leads T wave inversion less evident in Anterior leads Confirmed by Dung HERRERA, Solomon Krishna ([id number]) on 08/13/2018 7:09:36 AM
[2018-08-12 08:50] LABS: MODALITY VENTILATOR; pH(98.6) 7.62 (7.35-7.45)
--- NOTE | 2018-08-12 08:55 | Diag Imaging Result Doc PS360 ---
EXAM: CHEST/ABD TUBE PLACEMENT HISTORY: Pulm edema aspiration, NG tube placement TECHNIQUE: Portable chest abdomen COMPARISON: 2:07 AM FINDINGS: No change in position of the endotracheal or nasogastric tubes. Each of these appear to be in good position. Bilateral infiltrates remain. No cardiomegaly. No pleural effusions identified. No free air beneath the diaphragm. IMPRESSION: Endotracheal and nasogastric tubes in good position. Electronically signed by Armaan Baldwin 08/12/2018 8:53 AM
[2018-08-12] MEDS: BASAGLAR SUBQ SCH (09:00)
[2018-08-12] MEDS: MAXIPIME 1 GM in NS 50 ML IV SCH ×2 (09:22→20:46)
[2018-08-12] MEDS: PROTONIX IV SCH (09:23)
[2018-08-12] MEDS ORDERED: ZOSYN 3.375 GM in NS 50 ML IV SCH (09:30)
[2018-08-12] MEDS: PLAVIX PO SCH (10:10)
[2018-08-12 10:21] LABS: ALBUMIN 3.6 g/dL (3.5-5.0); CALCIUM 8.5 mg/dL (8.8-10.2); CREATININE 1.1 mg/dL (0.5-0.9); PHOSPHORUS 3.2 mg/dL (2.7-4.5); POTASSIUM 3.3 mmol/L (3.5-5.1)
[2018-08-12] MEDS: ZYVOX 600 MG/D5W 600 MG/300 ML IVPB IV SCH ×2 (10:22→20:46)
[2018-08-12 10:45] LABS: CK INDEX 8.4 (0.0-2.5); CK-MB 21.01 ng/mL (0.0-5.0)
[2018-08-12] MEDS: MORPHINE IV PRN (10:50)
--- NOTE | 2018-08-12 12:30 | PULMONOLOGY CONSULTATION ---
DATE: 08/12/2018 REQUESTING PHYSICIAN: Dr. Salgado. REASON FOR CONSULTATION: Respiratory failure. HISTORY OF PRESENT ILLNESS: Ms. Gregory is a 57-year-old white female with COPD, chronic hypoxemic respiratory failure, prior intubation and mechanical ventilation, who was brought to the emergency room by EMS with altered mental status. The patient's oxygen saturation upon EMS arrival was 50%. The patient was intubated and initiated on mechanical ventilation in the emergency room. The patient can provide no additional information. PAST MEDICAL HISTORY: 1. COPD with ongoing tobacco use. 2. Mitral valve disease. 3. Atrial fibrillation. 4. Diabetes mellitus. 5. History of previous CVA with residual weakness. 6. Hypertension. 7. Dyslipidemia. 8. Gastroesophageal reflux. 9. Obesity. 10. Sleep apnea. 11. Renal artery disease status post stent placement. 12. Status post carotid endarterectomy. 13. Status post cholecystectomy. SOCIAL HISTORY: Patient continues to smoke one 1/2 pack per day. FAMILY DYNAMICS: Appears dysfunctional per Dr. Johnson's note. PHYSICAL EXAMINATION: General: Reveals an obese white female, who is currently sedated on mechanical ventilation. Vital signs: Blood pressure 127/77, heart rate 99, respiratory rate 20, oxygen saturation 100%. HEENT: Pupils are equal and reactive. Oropharynx is clear. Neck: Supple. Chest: Reveals prolonged expiratory phase with faint wheezing. Cardiac: S1, S2. Abdomen: Soft with diminished bowel sounds. Extremities: Reveal 1 to 2+ peripheral edema. LABORATORIES: Chest x-ray reveals vascular congestion with bilateral infiltrates. White blood count 19.9, hemoglobin 12.0, platelet count 390,000. Arterial blood gas with first later adjustment: pH 7.23, pCO2 of 77, pO2 of 78 with a lactate of 3.7. Arterial blood gas at 8:15 this morning: pH 7.62, pCO2 of 35, pO2 of 272. Chemistry: Sodium 146, potassium 3.3, chloride 98, bicarbonate 33, BUN 16, creatinine 1.1. Troponin is elevated at 0.56. EKG reveals ST and T wave changes throughout the anterolateral leads. IMPRESSION: A 57-year-old with chronic obstructive pulmonary disease, who presents with pulmonary edema, acute hypoxemic and acute hypercapnic respiratory failure, history of chronic hypoxemic respiratory failure, altered mental status, acute myocardial infarction. RECOMMENDATIONS: 1. Continue full ventilatory support. Ventilator adjustments have been made. 2. Routine gastric acid suppression. 3. Agree with cardiology evaluation for acute ischemia. 4. Attempt to collect sputum for C and S. 5. Agree with broad spectrum antibiotics. Would recommend short course of antibiotics if radiograph improves. 6. Long-term, patient would benefit from significant weight loss and smoking cessation. Time spent in critical care management: 30+ minutes cc: MD NAHID Hong
[2018-08-12] MEDS: POTASSIUM CHLORIDE 20 MEQ/SWI 20 MEQ/100 ML IVPB IV SCH ×2 (12:41→15:01)
[2018-08-12 13:14] LABS: ALLEN TEST YES; BE 13.6 mmoll (-3.0-3.0); BLOOD TYPE ARTERIAL; HCO3-(ACT) 35.5 mmoll (20.0-26.0); METHB 1.2 % (0.0-1.5); O2(CT) 14.7 mL/dL (15.0-23.0); O2HB 94.3 % (95.0-99.0); PCO2(98.6) 48 mmHg (35-45); PO2(98.6) 75 mmHg (60-100); SAMPLE BLOOD; SAO2 97.1 % (95.0-100.0); SRATE 12 BPM; TVOL 600 mL; pH(98.6) 7.51 (7.35-7.45)
[2018-08-12 13:16] LABS: MODALITY VENTILATOR
--- NOTE | 2018-08-12 14:05 | ECHO REPORT ---
ORDER DATE: 08/12/2018 INDICATIONS: CVA, hyperlipidemia, respiratory distress, CHF, history of MS. FINDINGS: 1. The right atrium appears normal in size at 2.9 cm. 2. There is mild tricuspid regurgitation. There is insufficient data to estimate RV systolic pressure. 3. Normal RV size with mild reduction in RV systolic function. 4. No significant pulmonic insufficiency. 5. Mild left atrial enlargement at 4.1 cm. 6. No mitral valve prolapse. There is a suggestion of moderate and possibly severe mitral regurgitation. This is a somewhat eccentric jet that is difficult to visualize. There appears to be moderate mitral stenosis with a peak gradient of 13 and a mean of 7. The valve area is 1.5 cm2. 7. Normal LV size with an end-diastolic dimension of 4 cm. Mild left ventricular hypertrophy with a posterior and interventricular septal wall thickness of 1.2 cm each. There is reduction in LV systolic function with an estimated EF in the 35% to 40% range. There is mild global hypokinesis and more prominent hypokinesis of the inferior wall. Definity echo contrast was used on this study. 8. Aortic valve opens well. No evidence of stenosis or insufficiency. 9. The aorta appears normal in visualized segments. 10. No pericardial effusion seen. 11. This was a difficult study with the patient on the ventilator. cc: MD Marilu Mejia MD
[2018-08-12] MEDS: COREG PO SCH (15:01)
[2018-08-12 18:35] LABS: URINE SOURCE CATH
[2018-08-12 18:38] LABS: BILIRUBIN URINE NEGATIVE (NEGATIVE); BLOOD URINE NEGATIVE (NEGATIVE); COLOR STRAW; GLUCOSE URINE NEGATIVE (NEGATIVE); KETONE URINE NEGATIVE (NEGATIVE); LEUKOCYTES URINE SMALL (NEGATIVE); NITRITE URINE NEGATIVE (NEGATIVE); PROTEIN URINE NEGATIVE (NEGATIVE); SP GRAVITY URINE 1.003; TURBIDITY URINE CLEAR (CLEAR); UR EPITHELIAL CELLS <10 /HPF (<10); URINE BACTERIA NEGATIVE /HPF; URINE RBC <10 /HPF (<10); URINE WBC <10 /HPF (<10); UROBILINOGEN URINE NORMAL (NORMAL)
--- NOTE | 2018-08-12 19:34 | CONSULTATION ---
DATE OF CONSULTATION: 08/12/2018 IMPRESSION: 1. Acute hypoxemic respiratory failure. 2. Acute on chronic congestive heart failure. Echocardiography demonstrates left ventricular ejection fraction approximately 30% with moderate mitral regurgitation. 3. Possible aspiration. 4. Severe coronary atherosclerosis in the past with occluded left circumflex coronary artery, moderate diagonal stenosis and critical stenosis in nondominant right coronary. Patient had been managed medically in the past. Last cardiac catheterization study 2016. 5. Hypertensive cardiovascular disease. 6. Chronic obstructive pulmonary disease. 7. Paroxysmal fibrillation. RECOMMENDATIONS: 1. Supportive care with ventilator. 2. Diurese. 3. Continue carvedilol as tolerated. 4. Serial cardiac enzymes. 5. Lovenox 1 mg/kg subcutaneously q.12. 6. Ultimately may need to reassess the patient's coronary disease once she is clinically improved. HISTORY: This 57-year-old, white female with past history of coronary atherosclerosis as outlined above, paroxysmal atrial fibrillation, type 2 diabetes mellitus, COPD, opioid dependence, hypertensive cardiovascular disease and chronic cigarette use was admitted to emergency room after she was brought in for respiratory failure. She required intubation shortly after arrival to the emergency room. History obtained from record. She has had progressive shortness of breath over the last 3 to 4 days accompanied by orthopnea and PND. Symptoms worsened today and EMS was summoned. She was brought to the emergency room and attempts were made to use BiPAP to stabilize her. However, she did not stabilize and required intubation. There were lot of secretions suspicious for pulmonary edema. There has been no noted recent chest pain. PAST MEDICAL HISTORY: 1. Atherosclerotic coronary disease with previous myocardial infarction. Previous cardiac catheterization is demonstrated a chronically occluded left circumflex coronary critical stenosis in nondominant right coronary artery and moderate stenosis in diagonal branch. She has been managed medically. Last cardiac catheterization study 2015. 2. Hypertensive cardiovascular disease with left ventricular diastolic dysfunction. 3. Mitral regurgitation. 4. Chronic obstructive pulmonary disease. 5. Diabetes mellitus type 2. 6. Opioid dependence. PAST SURGICAL HISTORY: 1. Includes appendectomy, cholecystectomy, carotid endarterectomy. 2. She has chronic back disorder. 3. She is allergic or intolerant to Levaquin and nonsteroidal anti-inflammatory medications. MEDICATIONS PRIOR TO ADMISSION: As listed. SOCIAL HISTORY: She is . She has history of previous cigarette use. FAMILY HISTORY: Noncontributory. REVIEW OF SYSTEMS: Not obtainable given patient's condition. PHYSICAL EXAMINATION: General: Obese middle-aged white female intubated on ventilator. She is sedated. Vital Signs: Blood pressure 134/88, heart rate 100, and regular oxygen saturation 100%. HEENT: Extraocular movements intact. Mucous membranes moist. Neck: Supple without discernible jugular distention. Chest: Auscultation of the chest reveals coarse breath sounds bilaterally. Cardiac: Reveals a regular rate and rhythm without appreciable murmur or gallop. Abdomen: Soft. Bowel sounds audible. Extremities: Demonstrate mild peripheral edema. PERTINENT DATA: Twelve lead EKG demonstrates sinus tachycardia, anterolateral ST abnormality, consider ischemia. LABORATORY DATA: Includes white blood cell count 19.96, hematocrit 42.2, hemoglobin 12.0, platelet count 390,000. Pro-time 18.7, INR 1.44, sodium 146, potassium 3.3, chloride 98, carbon dioxide 33, BUN 16, creatinine 1.1, glucose 115. Troponin T 0.622, CPK 249. CPK MB 21.01. Pro-B natriuretic peptide level 2745. Chest x-rays reviewed, demonstrates mild cardiomegaly and diffuse. Pulmonary edema. cc: Migel Nichols MD
[2018-08-12] MEDS: LOVENOX SUBQ SCH (20:46)
[2018-08-12] MEDS: LIPITOR PO SCH (20:48)
[2018-08-13] MEDS: DIPRIVAN 1% 1,000 MG/100 ML BOTTLE IV SCH ×5 (00:47→19:58)
[2018-08-13] MEDS: LASIX 100 MG in NS 90 ML IV SCH (01:46)
[2018-08-13 04:39] LABS: ALLEN TEST YES; BE 12.4 mmoll (-3.0-3.0); BLOOD TYPE ARTERIAL; HCO3-(ACT) 34.6 mmoll (20.0-26.0); METHB 1.8 % (0.0-1.5); O2(CT) 15.7 mL/dL (15.0-23.0); O2HB 96.1 % (95.0-99.0); PCO2(98.6) 41 mmHg (35-45); PO2(98.6) 147 mmHg (60-100); SAMPLE BLOOD; SAO2 99.5 % (95.0-100.0); SRATE 8 BPM; THB 11.4 g/dL (11.5-17.4); TVOL 600 mL; pH(98.6) 7.55 (7.35-7.45)
[2018-08-13 04:41] LABS: MODALITY VENTILATOR
[2018-08-13] MEDS: SODIUM CHLORIDE 0.9% INJ SCH (05:52)
[2018-08-13] MEDS: COREG PO SCH ×2 (05:55→15:39)
[2018-08-13 06:04] LABS: AGAP 19; ALB/GLOB RATIO 0.9; ALBUMIN 3.4 g/dL (3.5-5.0); ALKALINE PHOSPHATASE 89 U/L (32-104); BUN 16 mg/dL (8-22); CALCIUM 8.4 mg/dL (8.8-10.2); CHLORIDE 91 mmol/L (98-107); CHOLESTEROL 223 mg/dL (0-200); COSMO 284; CREATININE 0.9 mg/dL (0.5-0.9); ESTIMATED GFR > 60; GLUCOSE 128 mg/dL (70-104); GOT 42 U/L (10-30); GPT 21 U/L (10-36); HDL 45 mg/dL (45-65); LDL 133 mg/dL; POTASSIUM 3.5 mmol/L (3.5-5.1); SODIUM 141 mmol/L (136-145); TCO2 31 mmol/L (25-35); TOTAL BILIRUBIN 0.37 mg/dL (0.20-1.00); TOTAL PROTEIN 7.2 g/dL (6.3-8.3); TRIGLYCERIDES 225 mg/dL (35-135); VLDL 45 mg/dL
[2018-08-13 06:25] LABS: HEMATOCRIT 37.4 % (37.0-47.0); HEMOGLOBIN 11.2 g/dL (12.0-16.0); MCH 26.1 PG (27-31); MCHC 29.9 g/dL (33-37); MCV 87.2 FL (81-99); MPV 11.9 FL (7.4-10.4); RBC 4.29 XMIL (4.2-5.4); RDW 17.1 % (11.5-14.5); WBC 10.03 X1000 (4.8-10.8)
[2018-08-13 06:40] LABS: HEMOGLOBIN A1C 5.9 % (4.8-6.0)
--- NOTE | 2018-08-13 07:19 | EKG Report ---
Test Performed on : 08/13/2018 07:00:15 AM Test Reason : nstemi Blood Pressure : / mmHG Vent. Rate : 094 BPM Atrial Rate : 094 BPM P-R Int : 120 ms QRS Dur : 090 ms QT Int : 416 ms P-R-T Axes : 033 084 -89 degrees QTc Int : 520 ms Normal sinus rhythm. Possible Lateral infarct , age undetermined Cannot rule out Inferior infarct (cited on or before 12-AUG-2018) ST & T wave abnormality, consider anterior ischemia Prolonged QT Abnormal ECG When compared with ECG of 12-AUG-2018 08:43, (Unconfirmed) T wave inversion more evident in Anterior leads Confirmed by Dung HERRERA, Solomon Krishna ([id number]) on 08/14/2018 9:20:18 AM
--- NOTE | 2018-08-13 07:26 | Diag Imaging Result Doc PS360 ---
EXAM: CHEST-PORTABLE INDICATION: respiratory failure TECHNIQUE: One view COMPARISON: 08/12/2018 FINDINGS: Support tubes and lines are in stable positions. Bilateral infiltrates persist. However, they appear to have improved especially on the right. No new consolidation is identified. Cardiac silhouette is stable. IMPRESSION: Interval improvement. Electronically signed by Jose Escoto 08/13/2018 7:24 AM
[2018-08-13] MEDS: HUMALOG SUBQ SCH ×4 (07:40→20:01)
[2018-08-13] MEDS ORDERED: NS 250 ML ONE (07:59)
[2018-08-13] MEDS: DUONEB (A & A) INH SCH ×5 (08:14→23:07)
[2018-08-13] MEDS ORDERED: COREG PO SCH (09:00)
[2018-08-13] MEDS: MAXIPIME 1 GM in NS 50 ML IV SCH ×2 (09:00→20:00)
[2018-08-13] MEDS: BASAGLAR SUBQ SCH (09:02)
[2018-08-13] MEDS: PROTONIX IV SCH (09:02)
[2018-08-13] MEDS: LOVENOX SUBQ SCH ×2 (09:02→20:02)
[2018-08-13] MEDS: PLAVIX PO SCH (09:05)
[2018-08-13] MEDS: ZYVOX 600 MG/D5W 600 MG/300 ML IVPB IV SCH ×2 (09:37→20:01)
--- NOTE | 2018-08-13 16:21 | PROGRESS NOTE ---
DATE: 08/13/2018 SUBJECTIVE: The patient is resting comfortably in bed. She is currently sedated on the ventilator. No acute events noted overnight. OBJECTIVE: Vital Signs: Temperature 98.6, blood pressure 114/78, heart rate 108, respirations 18, O2 saturations 97% on mechanical ventilator. General: This is a chronically ill appearing, elderly female lying in bed, in no acute distress. Head: Normocephalic, atraumatic. Heart: S1, S2 normal. Tachycardic. Lungs: Diminished breath sounds at the bases, coarse bilaterally. Abdomen: Positive bowel sounds. Soft, nontender, nondistended. Extremities: No edema. No cyanosis. Neurological: The patient is currently sedated on the ventilator. LABORATORY DATA: Hemoglobin 11, hematocrit 37, platelets 240. White blood cell count 10. Sodium 141, potassium 3.5, chloride 91, CO2 31, BUN 16, creatinine 0.9, glucose 128, calcium 8.4. IMAGING: Chest x-ray shows bilateral infiltrates. ASSESSMENT AND PLAN: 1. Acute hypoxemic and hypercapnic respiratory failure. Continue with ventilatory support as directed by the software packager. 2. Acute pulmonary edema. Continue with diuretic therapy as directed by the tire vulcanizer. 3. Acute myocardial infarction. The patient is on full dose Lovenox. Further recommendations to follow from the tire vulcanizer. 4. Chronic obstructive pulmonary disease. Continue with bronchodilator therapy. 5. Possible pneumonia. Continue with broad spectrum antibiotics and bronchodilator therapy. Cultures are pending. 6. Cardiomyopathy. Aware. 7. Severe coronary artery disease. Aware. 8. Paroxysmal atrial fibrillation. Management as per the tire vulcanizer. 9. Gastrointestinal prophylaxis. Continue on Protonix. 10. Deep venous thrombosis prophylaxis. Continue on Lovenox. cc: MD NAHID Flores
--- NOTE | 2018-08-13 18:54 | PULMONOLOGY PROGRESS NOTE ---
DATE: 08/13/2018 SUBJECTIVE: The patient is on mechanical ventilation. She appears to be comfortable. She has had good diuresis. OBJECTIVE: Vital Signs: The patient has been afebrile the last 24 hours. Blood pressure 138/93, heart rate 102, respiratory rate 16, oxygen saturation 97%. HEENT: Pupils are equal and reactive. Oropharynx is clear. Neck: Supple. Chest: Chest reveals crackles bilaterally. Cardiac: S1, S2. Abdomen: Soft. Extremities: Reveal trace to 1+ peripheral edema. LABORATORIES: Arterial blood gas reveals pH 7.55, pCO2 of 41, PO2 of 147. White blood count 10.03, hemoglobin 11.2, platelet count 240,000. Sodium 141, potassium 3.5, chloride 91, bicarbonate 31, BUN 16, creatinine 0.9. Echocardiogram reveals moderate to severe mitral regurgitation, reduction in ejection fraction to 35-40%. IMPRESSION: A 57-year-old with acute hypoxemic respiratory failure, acute hypercapnic respiratory failure, severe chronic obstructive pulmonary disease, acute myocardial infarction, mitral valve disease, alteration in mental status. She has remained stable on mechanical ventilation and has diuresed. RECOMMENDATIONS: 1. Continue ventilatory support with weaning as tolerated. 2. Continue gastric acid suppression. 3. Agree with increased anticoagulation for acute ischemia outlined by Cardiology. 4. Continue antibiotics pending improvement in chest x-ray. 5. Smoking cessation and weight loss recommended. Time spent in critical care management: 30+ minutes cc: Indra Bowens MD MTDD
[2018-08-13] MEDS: LIPITOR PO SCH (20:01)
--- NOTE | 2018-08-13 20:21 | PROGRESS NOTE ---
DATE: 08/13/2018 CARDIOLOGY FOLLOWUP NOTE: SUBJECTIVE: Patient continues sedated on ventilator. OBJECTIVE: Vital Signs: Blood pressure 105/69, heart rate 100 and regular with ECG monitor showing sinus rhythm, oxygen saturation 96%. Neck: JV distention cannot be appreciated. Chest: Clear to auscultation anteriorly. Cardiac: Reveals a regular rate and rhythm without appreciable murmur or gallop. Extremities: Warm, well perfused and without edema. LABORATORY DATA: Includes white blood cell count 10.03, hematocrit 37.4, hemoglobin 11.2, platelet count 240,000. Sodium 141, potassium 3.5, chloride 91, carbon dioxide 31, BUN 16, creatinine 0.9. Troponin 0.38, which is decreasing. Chest x-ray shows interval improvement in bilateral infiltrates. IMPRESSION: 1. Acute hypoxemic respiratory failure. 2. Acute on chronic congestive heart failure. Echocardiography demonstrates left ventricular ejection fraction approximately 30-35% with moderate mitral regurgitation. 3. Abnormal troponin, probably related to acute on chronic congestive heart failure in setting of underlying ischemic heart disease. 4. Possible pneumonia and/or aspiration. 5. Severe coronary atherosclerosis in the past with occluded left circumflex coronary artery, moderate diagonal stenosis and critical stenosis in nondominant right coronary artery. The patient has been managed medically in the past. Last cardiac catheterization study was 2016. 6. Hypertensive cardiovascular disease. 7. Chronic obstructive pulmonary disease. 8. Paroxysmal atrial fibrillation. RECOMMENDATIONS: 1. Continue ventilator support. 2. Continue efforts to diurese. 3. Continue carvedilol. 4. Continue Lovenox 1 mg/kg subcutaneous q.12. 5. Once patient has clinically improved, re-evaluation of patient's coronary disease should be considered. cc: Migel Nichols MD [facility]
[2018-08-14] MEDS: COREG PO SCH ×2 (02:25→15:25)
[2018-08-14] MEDS: DIPRIVAN 1% 1,000 MG/100 ML BOTTLE IV SCH ×4 (02:26→08:34)
[2018-08-14 04:55] LABS: ALLEN TEST YES; BE 11.2 mmoll (-3.0-3.0); BLOOD TYPE ARTERIAL; HCO3-(ACT) 33.7 mmoll (20.0-26.0); O2(CT) 14.7 mL/dL (15.0-23.0); O2HB 96.8 % (95.0-99.0); PCO2(98.6) 32 mmHg (35-45); PO2(98.6) 130 mmHg (60-100); SAMPLE BLOOD; SAO2 99.3 % (95.0-100.0); SRATE 8 BPM; THB 10.6 g/dL (11.5-17.4); TVOL 600 mL; pH(98.6) 7.62 (7.35-7.45)
[2018-08-14 04:56] LABS: MODALITY VENTILATOR
[2018-08-14] MEDS: LASIX 100 MG in NS 90 ML IV SCH ×2 (04:56→11:27)
[2018-08-14] MEDS: SODIUM CHLORIDE 0.9% INJ SCH (04:57)
[2018-08-14 05:59] LABS: HEMATOCRIT 33.2 % (37.0-47.0); HEMOGLOBIN 10.3 g/dL (12.0-16.0); MCH 26.4 PG (27-31); MCV 85.1 FL (81-99); MPV 12.4 FL (7.4-10.4); RBC 3.9 XMIL (4.2-5.4); RDW 16.9 % (11.5-14.5); WBC 10.08 X1000 (4.8-10.8)
[2018-08-14 06:49] LABS: ALBUMIN 3.6 g/dL (3.5-5.0); CALCIUM 8.4 mg/dL (8.8-10.2); CREATININE 1.1 mg/dL (0.5-0.9); POTASSIUM 3.4 mmol/L (3.5-5.1); TOTAL BILIRUBIN 0.45 mg/dL (0.20-1.00); TOTAL PROTEIN 7.1 g/dL (6.3-8.3)
[2018-08-14] MEDS: HUMALOG SUBQ SCH ×4 (07:00→20:24)
--- NOTE | 2018-08-14 07:02 | Diag Imaging Result Doc PS360 ---
EXAM: CHEST-PORTABLE 08/14/2018 HISTORY: respiratory failure TECHNIQUE: AP portable at 0516 COMMENT: There is an endotracheal tube with its tip at thoracic inlet and an NG tube which passes below the diaphragm. There is a PICC line on the left with its tip in the right atrium. Compared to 08/13/2018 there has been some improvement in the alveolar opacification of the left lower lobe. IMPRESSION: Improved left lower lobe pneumonia. Electronically signed by Rubén Leahy 08/14/2018 7:00 AM
[2018-08-14] MEDS: MAXIPIME 1 GM in NS 50 ML IV SCH ×2 (07:33→20:12)
[2018-08-14] MEDS: ZYVOX 600 MG/D5W 600 MG/300 ML IVPB IV SCH ×2 (07:33→20:12)
[2018-08-14] MEDS ORDERED: POTASSIUM CHLORIDE 40 MEQ/SWI 40 MEQ/100 ML IVPB IV ONE (07:40)
[2018-08-14] MEDS: DUONEB (A & A) INH SCH ×5 (07:48→23:09)
[2018-08-14] MEDS: PROTONIX IV SCH (09:42)
[2018-08-14] MEDS: BASAGLAR SUBQ SCH (09:47)
[2018-08-14] MEDS: PLAVIX PO SCH (11:25)
[2018-08-14] MEDS: LOVENOX SUBQ SCH ×3 (11:26→23:35)
[2018-08-14] MEDS ORDERED: MAGNESIUM SULFATE 2 GM/S.W.I. 2 GM/50 ML IVPB IV ONE (13:00)
[2018-08-14 13:02] LABS: ALLEN TEST YES; BE 9.7 mmoll (-3.0-3.0); BLOOD TYPE ARTERIAL; HCO3-(ACT) 32.3 mmoll (20.0-26.0); MODALITY VENTILATOR; O2HB 91.7 % (95.0-99.0); PCO2(98.6) 41 mmHg (35-45); PO2(98.6) 65 mmHg (60-100); SAMPLE BLOOD; SAO2 94.8 % (95.0-100.0); pH(98.6) 7.52 (7.35-7.45)
[2018-08-14] MEDS ORDERED: ATIVAN IV ONE (13:42)
[2018-08-14] MEDS: MORPHINE IV PRN ×3 (13:44→21:36)
--- NOTE | 2018-08-14 16:07 | PROGRESS NOTE ---
DATE: 08/14/2018 SUBJECTIVE: The patient is sedated and intubated. OBJECTIVE: Vital Signs: Temperature 98.6 degrees, blood pressure 146/96, heart rate 103, respirations 26, O2 saturation 98% on the ventilator. General: This is a chronically ill- appearing, elderly female lying in bed in no acute distress. Heart: S1, S2 normal. Tachycardic. Lungs: Equal air entry bilaterally. No wheezing. No rales. Abdomen: Positive bowel sounds. Soft, nontender, nondistended. Extremities: No edema, no cyanosis. Neurologic : The patient is currently sedated on the ventilator. LABS: White blood cell count 10, hemoglobin 10, hematocrit 33, platelets 251. Sodium 138, potassium 3.4, chloride 89, CO2 29. BUN 18, creatinine 1.1, glucose 124, calcium 8.4, albumin 3.6. ASSESSMENT AND PLAN: 1. Acute hypoxemic and hypercapnic respiratory failure. Continue with ventilatory management as directed by the assistant associate professor. 2. Acute myocardial infarction. Management as per the beer cooler. 3. Chronic obstructive pulmonary disease. Continue bronchodilator therapy. 4. Pulmonary edema. The patient is currently on a Lasix drip. 5. Pneumonia. Continue with broad spectrum antibiotics and bronchodilator therapy. 6. Cardiomyopathy. Aware. 7. Severe coronary artery disease. Aware. 8. Paroxysmal atrial fibrillation. The patient is rate controlled. 9. Gastrointestinal prophylaxis. Continue on Protonix. 10. Deep vein thrombosis prophylaxis. Continue on Lovenox. cc: Josephine Salgado MD MTDD
--- NOTE | 2018-08-14 17:49 | PULMONOLOGY PROGRESS NOTE ---
DATE: 08/14/2018 SUBJECTIVE: The patient is awake, alert. She is intubated. She is following commands. OBJECTIVE: Vital Signs: Blood pressure 118/76, heart rate 85, respiratory rate 17, oxygen saturation 98%. Intake 1898, output 1775 with a negative balance of 123 mL. HEENT: Pupils are equal and reactive. Oropharynx is clear. Neck: Is supple. Chest: Reveals some coarse breath sounds bilaterally without wheezing. Cardiac: S1-S2. Abdomen: Is soft. Extremities: Without edema. LABORATORIES: Arterial blood gas reveals a pH 7.62, pCO2 of 32, PO2 of 130. White blood count 10.08, hemoglobin 10.3, platelet count 251,000. Sodium 138, potassium 3.4, chloride 89, bicarbonate 29, BUN 18, creatinine 1.1, magnesium 1.3. Chest x-ray reveals decreased pulmonary edema/infiltrates left base. Microbiology reveals normal juli. IMPRESSION: 57-year-old with chronic obstructive pulmonary disease, acute hypoxemic respiratory failure, acute hypercapnic respiratory failure, mitral valve disease, acute myocardial infarction. She has had some radiographic improvement with decrease in ventilatory requirements. RECOMMENDATIONS: 1. Initiate spontaneous breathing trial. 2. Continue gastric acid suppression. 3. Discontinue antibiotics tomorrow if all cultures are negative. 4. Smoking cessation and weight loss will be recommended. CRITICAL CARE TIME: Time spent 30+ minutes. cc: Indra Bowens MD
[2018-08-14] MEDS: ATIVAN IV PRN (20:12)
[2018-08-14] MEDS: LIPITOR PO SCH (20:13)
[2018-08-15] MEDS: MORPHINE IV PRN ×6 (00:46→21:14)
[2018-08-15] MEDS: ATIVAN IV PRN ×3 (03:13→14:15)
[2018-08-15] MEDS: COREG PO SCH ×2 (03:16→14:28)
[2018-08-15] MEDS: SODIUM CHLORIDE 0.9% INJ SCH (05:22)
[2018-08-15 05:47] LABS: BLOOD TYPE ARTERIAL; PCO2(98.6) 39 mmHg (35-45); SAMPLE BLOOD; pH(98.6) 7.57 (7.35-7.45)
[2018-08-15 05:48] LABS: HCO3-(ACT) 36.4 mmoll (20.0-26.0); PO2(98.6) 173 mmHg (60-100)
[2018-08-15 05:49] LABS: ALLEN TEST YES; MODALITY COOL AEROSOL; THB 11.2 g/dL (11.5-17.4)
[2018-08-15 05:52] LABS: HEMATOCRIT 35.8 % (37.0-47.0); HEMOGLOBIN 10.9 g/dL (12.0-16.0); MCH 26.1 PG (27-31); MCHC 30.4 g/dL (33-37); MCV 85.6 FL (81-99); MPV 12.2 FL (7.4-10.4); RBC 4.18 XMIL (4.2-5.4); RDW 16.7 % (11.5-14.5); WBC 12.47 X1000 (4.8-10.8)
[2018-08-15 06:11] LABS: AGAP 20; ALB/GLOB RATIO 0.8; ALBUMIN 3.6 g/dL (3.5-5.0); ALKALINE PHOSPHATASE 92 U/L (32-104); BUN 22 mg/dL (8-22); CALCIUM 9.1 mg/dL (8.8-10.2); CHLORIDE 93 mmol/L (98-107); COSMO 286; CREATININE 0.9 mg/dL (0.5-0.9); ESTIMATED GFR > 60; GLUCOSE 117 mg/dL (70-104); GOT 61 U/L (10-30); GPT 21 U/L (10-36); MAGNESIUM 2.1 mg/dL (1.5-2.7); PHOSPHORUS 4.8 mg/dL (2.7-4.5); POTASSIUM 3.5 mmol/L (3.5-5.1); SODIUM 141 mmol/L (136-145); TCO2 28 mmol/L (25-35); TOTAL BILIRUBIN 0.63 mg/dL (0.20-1.00); TOTAL PROTEIN 8.1 g/dL (6.3-8.3)
[2018-08-15] MEDS: LASIX 100 MG in NS 90 ML IV SCH (06:13)
[2018-08-15] MEDS: HUMALOG SUBQ SCH ×4 (06:13→21:00)
[2018-08-15] MEDS: DUONEB (A & A) INH SCH ×5 (07:45→23:41)
[2018-08-15] MEDS: MAXIPIME 1 GM in NS 50 ML IV SCH ×2 (07:51→21:13)
--- NOTE | 2018-08-15 08:36 | Diag Imaging Result Doc PS360 ---
CHEST-PORTABLE - 08/15/2018 INDICATION: respiratory failure COMPARISON: 08/14/2018 FINDINGS: The endotracheal tube and nasogastric tube have been removed. Stable left PICC line in good position. There is further improvement in the infiltrate or atelectasis at the left lower lobe. No substantial infiltrates at this time. Heart size is top normal. IMPRESSION: Patient extubated. Improved aeration of the lungs. Electronically signed by Wan Eddy 08/15/2018 8:33 AM
[2018-08-15] MEDS: PLAVIX PO SCH (08:48)
[2018-08-15] MEDS: ZYVOX 600 MG/D5W 600 MG/300 ML IVPB IV SCH ×2 (08:49→21:13)
[2018-08-15] MEDS: PROTONIX IV SCH (09:00)
[2018-08-15] MEDS: BASAGLAR SUBQ SCH (11:52)
[2018-08-15] MEDS: LOVENOX SUBQ SCH ×2 (11:54→23:20)
--- NOTE | 2018-08-15 14:42 | PULMONOLOGY PROGRESS NOTE ---
DATE: 08/15/2018 SUBJECTIVE: The patient is awake and alert. She is having some pain with swallowing. She has no shortness of breath. She has a fair cough. OBJECTIVE: Vital Signs: The patient has been afebrile for the last 24 hours. Blood pressure is 137/80, heart rate 106, respiratory rate 15 and unlabored, and oxygen saturation 94% on 40% face mask. HEENT: Pupils are equal. Oropharynx appears clear. Neck: Supple. Respiratory: Chest reveals occasional rhonchi with partial clearance following cough. Cardiac: S1, S2. Abdomen: The abdomen is obese and soft. Extremities: The extremities reveal trace edema. LABORATORIES: White blood count is 12.47, hemoglobin 10.9, and platelet count 242,000. Arterial blood gas reveals a pH of 7.57, pCO2 of 39, and pO2 of 173. Sputum reveals normal juli. Chest x-ray reveals a rotated patient. Decreased infiltrate in the left base. IMPRESSION: A 57-year-old with chronic obstructive pulmonary disease, acute hypoxemic respiratory failure, acute hypercapnic respiratory failure, acute myocardial infarction, and mitral valve disease. The patient was extubated yesterday and is tolerating 40% FiO2. She is having some difficulties swallowing. She has had a stroke in the past. RECOMMENDATIONS: 1. We will continue ice chips today pending decreased dysphagia. She may require a swallowing study. 2. Continue gastric acid suppression. 3. Continue antibiotics. These could be discontinued from a pulmonary standpoint at the discretion of the Hospitalist Service. 4. Continue post myocardial infarction management per the Cardiology Service. cc: nIdra Bowens MD
[2018-08-15] MEDS: LIPITOR PO SCH (21:12)
[2018-08-15] MEDS: KLONOPIN PO SCH (21:12)
[2018-08-15] MEDS: LASIX IV SCH (21:13)
--- NOTE | 2018-08-15 23:18 | PROGRESS NOTE ---
DATE: 08/15/2018 SUBJECTIVE: The patient is awake and alert. She has been having bleeding from the PICC line site on her left arm. OBJECTIVE: Vital Signs: Temperature 98.5 degrees, blood pressure 118/74, heart rate 108, respirations 26, oxygen saturation 96% on 3 L nasal cannula. Urine output 2.2 L. General: This is a chronically ill-appearing elderly female, lying in bed, in no acute distress. Heart: S1, S2 normal. Tachycardic. Lungs: Equal air entry bilaterally. No wheezing. No rales. Abdomen: Positive bowel sounds. Soft, nontender, nondistended. Extremities: No edema, no cyanosis. Neurologic: The patient is awake and alert. LABS: White blood cell count 12, hemoglobin 10, hematocrit 35, platelets 242,000. Sodium 141, potassium 3.5, chloride 93, CO2 28, BUN 22, creatinine 0.9, glucose 117. IMAGING: Chest x-ray shows improvement in the infiltrate at the left lower lobe. ASSESSMENT AND PLAN: 1. Acute hypoxemic and hypercapnic respiratory failure. The patient was extubated yesterday. 2. Chronic obstructive pulmonary disease. Continue with bronchodilator therapy and antibiotics. 3. Pulmonary edema. Continue with diuretic therapy as directed by the slab worker. 4. Severe coronary artery disease. The patient is on Plavix. 5. Acute myocardial infarction. Management as per the slab worker. 6. Cardiomyopathy. Aware. 7. Pneumonia. Continue on broad-spectrum antibiotics. 8. Gastrointestinal prophylaxis. Continue on Protonix. 9. Paroxysmal atrial fibrillation. The patient is rate-controlled. 10. Deep vein thrombosis prophylaxis. The patient is currently on full dose Lovenox. cc: Josephine Salgado MD
[2018-08-16] MEDS: MORPHINE IV PRN ×5 (00:52→22:28)
[2018-08-16] MEDS: COREG PO SCH ×2 (04:43→17:16)
[2018-08-16] MEDS: SODIUM CHLORIDE 0.9% INJ SCH (05:43)
[2018-08-16] MEDS: HUMALOG SUBQ SCH ×4 (06:17→20:08)
[2018-08-16] MEDS: DUONEB (A & A) INH SCH ×5 (07:37→23:34)
--- NOTE | 2018-08-16 08:16 | Diag Imaging Result Doc PS360 ---
CHEST-PORTABLE - 08/16/2018 INDICATION: respiratory failure COMPARISON: 08/15/2018 FINDINGS: The left PICC line has been removed. There is continued improvement in the left lower lobe infiltrate. No new infiltrates. Heart size is normal. IMPRESSION: Continued improvement from prior. Electronically signed by Wan Eddy 08/16/2018 8:14 AM
[2018-08-16] MEDS: ZYVOX 600 MG/D5W 600 MG/300 ML IVPB IV SCH ×2 (08:23→20:04)
[2018-08-16] MEDS: PLAVIX PO SCH (08:23)
[2018-08-16] MEDS: KLONOPIN PO SCH ×3 (08:23→20:04)
[2018-08-16] MEDS: PROTONIX IV SCH (08:23)
[2018-08-16] MEDS: LASIX IV SCH ×2 (08:23→20:04)
[2018-08-16] MEDS: MAXIPIME 1 GM in NS 50 ML IV SCH ×2 (08:23→20:04)
[2018-08-16] MEDS: BASAGLAR SUBQ SCH ×2 (08:24→08:26)
[2018-08-16] MEDS ORDERED: INSULIN PEN NEEDLES ONE (08:25)
[2018-08-16] MEDS ORDERED: COZAAR PO SCH (09:00)
[2018-08-16 09:18] LABS: HEMOGLOBIN 11.1 g/dL (12.0-16.0); MCH 25.8 PG (27-31); MCV 85.8 FL (81-99); RBC 4.31 XMIL (4.2-5.4); RDW 16.3 % (11.5-14.5); WBC 10.42 X1000 (4.8-10.8)
[2018-08-16 09:37] LABS: ALB/GLOB RATIO 0.9; ALBUMIN 3.8 g/dL (3.5-5.0); CREATININE 1.3 mg/dL (0.5-0.9); TOTAL BILIRUBIN 0.7 mg/dL (0.20-1.00); TOTAL PROTEIN 8.2 g/dL (6.3-8.3)
[2018-08-16 09:47] LABS: PHOSPHORUS 3.6 mg/dL (2.7-4.5)
[2018-08-16] MEDS ORDERED: NS 500 ML IV ONE (11:57)
[2018-08-16] MEDS: LOVENOX SUBQ SCH ×2 (12:07→22:28)
[2018-08-16] MEDS ORDERED: KLOR-CON PO ONE (12:14)
[2018-08-16] MEDS: LEVOPHED 8 MG in D5 1/2 NS 250 ML IV SCH (13:20)
--- NOTE | 2018-08-16 14:02 | PROGRESS NOTE ---
DATE: 08/16/2018 SUBJECTIVE: The patient is resting comfortably in bed. She states that her shortness of breath has improved and she was able to eat her meal last night, she states that she wants to sit up in the chair today . OBJECTIVE: Vital Signs: Temperature 98.6 degrees, blood pressure 113/62, heart rate 93, respirations 19, O2 saturation 99% on 3 L nasal cannula, urine output 920, intake 1.6 L. General: This is a chronically ill-appearing elderly female lying in bed in no acute distress. Head: Normocephalic, atraumatic. Heart: S1, S2 normal. Lungs: Equal air entry bilaterally. No crackles, no rales. Abdomen: Positive bowel sounds. Soft, nontender, nondistended. Extremities: No edema, no cyanosis. Neuro: The patient is alert and oriented x3. LABS: White blood cell count 10, hemoglobin 11, hematocrit 37, platelets 250,000, sodium 133, potassium 3, chloride 89, CO2 29, BUN 32, creatinine 1.3, glucose 117. Chest x-ray shows improvement in the left lower lobe infiltrate. ASSESSMENT AND PLAN: 1. Acute hypoxemic hypercapnic respiratory failure. Improved. 2. Possible pneumonia. Continue with antibiotic therapy, chest x-ray shows improvement. 3. Pulmonary edema. The patient is currently on Lasix as directed by the automatic car wash attendant. 4. Chronic obstructive pulmonary disease. Continue with bronchodilator therapy and supplemental oxygen. 5. Severe coronary artery disease. Continue on Plavix. 6. Acute myocardial infarction. Continue on the current cardiac medications. The patient remains on full dose Lovenox. 7. Anxiety disorder. Continue on Klonopin. 8. History of multiple drug overdoses. Aware. 9. Paroxysmal atrial fibrillation. The patient is currently rate controlled. 10. Gastrointestinal prophylaxis. Continue on Protonix. 11. Deep vein thrombosis prophylaxis. The patient is on Lovenox. 12. Disposition. Will allow the patient to sit in chair today, if she continues to improve she can be transferred to the medical floor on telemetry. cc: Josephine Salgado MD
--- NOTE | 2018-08-16 14:47 | PULMONOLOGY PROGRESS NOTE ---
DATE: 08/16/2018 SUBJECTIVE: Patient is awake, alert and conversant. She is sitting in the bedside chair. OBJECTIVE: Vital Signs: The patient has been afebrile over the last 24 hours. Blood pressure 126/100, heart rate 92, respiratory rate 18, oxygen saturation 97% on 3 L per nasal cannula. HEENT: Pupils are equal and reactive. Oropharynx appears clear. Neck: Supple. Chest: Reveals prolonged expiratory phase without wheezing or rhonchi. Cardiac: S1, S2. Abdomen: Obese and soft. Extremities: Without edema. LABORATORIES: Sodium 133, potassium 3.0, chloride 89, bicarbonate 29, BUN 32, creatinine 1.3. White blood count 10.42, hemoglobin 11.1, platelet count 250,000. Microbiology reveals no new data. Chest x-ray reveals some improvement in left lower lobe infiltrate. IMPRESSION: A 57-year-old with COPD, , acute hypoxemic respiratory failure, acute hypercapnic respiratory failure, mitral valve disease, acute myocardial infarction. She is improving. She is now on a regular diet. RECOMMENDATION: 1. Diet as tolerated. 2. Wean oxygen as tolerated. 3. Consider discontinuation of antibiotics. Will leave this to the discretion of the hospitalist service. 4. Post myocardial infarction management per the Cardiology Service. cc: Indra Bowens MD
[2018-08-16] MEDS: LIPITOR PO SCH (20:04)
[2018-08-17] MEDS: COREG PO SCH ×2 (02:12→14:43)
[2018-08-17] MEDS: MORPHINE IV PRN ×7 (03:31→23:55)
[2018-08-17] MEDS: LEVOPHED 8 MG in D5 1/2 NS 250 ML IV SCH (04:29)
[2018-08-17] MEDS: SODIUM CHLORIDE 0.9% INJ SCH (05:32)
[2018-08-17] MEDS: HUMALOG SUBQ SCH ×4 (06:03→21:15)
--- NOTE | 2018-08-17 06:14 | Diag Imaging Result Doc PS360 ---
EXAM: CHEST-PORTABLE HISTORY: respiratory failure TECHNIQUE: Portable chest single view COMPARISON: 08/16/2018 FINDINGS: Poor inspiratory effort. There is mild pulmonary edema. The heart is borderline mildly prominent. No consolidation. No pleural effusions identified. IMPRESSION: Stable chest. Electronically signed by Armaan Baldwin 08/17/2018 6:12 AM
[2018-08-17 06:30] LABS: HEMATOCRIT 34.6 % (37.0-47.0); HEMOGLOBIN 10.6 g/dL (12.0-16.0); MCH 26.4 PG (27-31); MCHC 30.6 g/dL (33-37); MCV 86.1 FL (81-99); MPV 12.2 FL (7.4-10.4); RBC 4.02 XMIL (4.2-5.4); RDW 16.1 % (11.5-14.5); WBC 9.44 X1000 (4.8-10.8)
[2018-08-17 06:56] LABS: ALB/GLOB RATIO 0.9; ALBUMIN 3.4 g/dL (3.5-5.0); CREATININE 1.5 mg/dL (0.5-0.9); POTASSIUM 2.8 mmol/L (3.5-5.1); TOTAL BILIRUBIN 0.38 mg/dL (0.20-1.00); TOTAL PROTEIN 7.4 g/dL (6.3-8.3)
[2018-08-17] MEDS: DUONEB (A & A) INH SCH ×5 (07:45→23:35)
[2018-08-17] MEDS: KLONOPIN PO SCH ×3 (09:15→20:45)
[2018-08-17] MEDS: MAXIPIME 1 GM in NS 50 ML IV SCH ×2 (09:15→20:45)
[2018-08-17] MEDS: PLAVIX PO SCH (09:15)
[2018-08-17] MEDS: PROTONIX IV SCH (09:15)
[2018-08-17] MEDS: ZYVOX 600 MG/D5W 600 MG/300 ML IVPB IV SCH ×2 (09:15→20:45)
[2018-08-17] MEDS: COLACE PO SCH ×2 (09:19→21:16)
[2018-08-17] MEDS: LASIX IV SCH ×2 (09:19→20:46)
[2018-08-17] MEDS: BASAGLAR SUBQ SCH (09:19)
[2018-08-17] MEDS: MIRALAX PO SCH ×2 (09:19→20:45)
[2018-08-17] MEDS: LOVENOX SUBQ SCH ×2 (11:11→23:26)
[2018-08-17] MEDS ORDERED: KLOR-CON PO ONE (14:00)
--- NOTE | 2018-08-17 14:20 | PROGRESS NOTE ---
DATE: 08/17/2018 SUBJECTIVE: The patient is awake and alert. She states that she feels a lot better. She does complain of numbness and tingling in her feet. She remains on Levophed drip at 7 mcg. OBJECTIVE: Vital signs: Temperature 98.6 degrees, blood pressure 113/64, heart rate 94, respirations 15, O2 saturations 100% on 4 L nasal cannula. Urine output 1.9 L. General: This is a chronically ill-appearing, elderly female lying in bed, in no acute distress. Heart: S1, S2 normal. Regular rate and rhythm. Lungs: Equal air entry bilaterally. No crackles. No rales. Abdomen: Positive bowel sounds. Soft, nontender, nondistended. Extremities: No edema. No cyanosis. Neurological: The patient is alert and oriented x3. LABORATORY DATA: White blood cell count 9.4, hemoglobin 10, hematocrit 34, platelets 249,000. Sodium 136, potassium 2.8, chloride 93, CO2 28, BUN 36, creatinine 1.5, glucose 122. DIAGNOSTIC STUDIES: Chest x-ray, mild pulmonary edema. No consolidations. ASSESSMENT AND PLAN: 1. Acute hypoxemic respiratory failure. Improved. 2. Pneumonia. Continue with antibiotic therapy. 3. Pulmonary edema. The patient is on diuretic therapy. 4. Hypokalemia. Will replace the patient's potassium. 5. Chronic obstructive pulmonary disease. Continue with bronchodilator therapy and supplemental oxygen. 6. Severe coronary artery disease. Continue on the current cardiac medications. 7. Diabetes mellitus type 2. Continue on glargine plus sliding scale insulin. 8. History of multiple drug overdoses. Aware. 9. Anxiety disorder. Continue on Klonopin. 10. Acute myocardial infarction. Continue on the current cardiac medications. Cardiology is following. The patient remains on full-dose Lovenox. 11. Paroxysmal atrial fibrillation. The patient is rate controlled. 12. Gastrointestinal prophylaxis. The patient is on Protonix. 13. Deep vein thrombosis prophylaxis. The patient is currently on full-dose Lovenox. DISPOSITION: Once the patient is weaned off of the Levophed, will plan to transfer her to the medical floor on telemetry and consult physical therapy. cc: Josephine Salgado MD MTDD
--- NOTE | 2018-08-17 20:28 | PULMONOLOGY PROGRESS NOTE ---
DATE: 08/17/2018 SUBJECTIVE: Patient is awake, alert, and conversant. She is eating breakfast. She is without specific complaint. OBJECTIVE: Vital Signs: Blood pressure 105/56, heart rate 93, respiratory rate 16, oxygen saturation 100% on nasal cannula. General: She remains on low-dose low Levophed. HEENT: Pupils are equal and reactive. Oropharynx is clear. Neck: Supple. Chest: Reveals prolonged expiratory phase. Cardiac: S1, S2. Abdomen: Soft. Extremities: Reveal trace to 1+ edema. They are slightly cool to the touch. DIAGNOSTIC STUDIES: Chest x-ray reveals cardiomegaly with mild vascular congestion. White blood count 9.44, hemoglobin 10.6, platelet count 249,000. Arterial blood gas: Not obtained today. Chemistry: Sodium 136, potassium 2.8, chloride 93, bicarbonate 28, BUN 36, creatinine 1.5. IMPRESSION: A 57-year-old with chronic obstructive pulmonary disease (COPD), acute myocardial infarction, acute pulmonary edema, acute hypoxemic and acute hypercapnic respiratory failure, with underlying mitral valve disease. She continues to slowly improve, but she does remain on low-dose Levophed. PLAN: 1. Continue diet as tolerated. 2. Continue current antibiotic regimen. 3. Chest x-ray is clear. All cultures are negative. Antibiotics can be discontinued from a pulmonary standpoint. 4. Anticipate transfer to the floor when her Levophed has been discontinued. cc: Indra Bowens MD
[2018-08-17] MEDS: LIPITOR PO SCH (20:45)
[2018-08-18 01:16] LABS: URINE SOURCE CLEAN CATCH
[2018-08-18 01:32] LABS: BILIRUBIN URINE NEGATIVE (NEGATIVE); BLOOD URINE NEGATIVE (NEGATIVE); COLOR STRAW; GLUCOSE URINE NEGATIVE (NEGATIVE); KETONE URINE NEGATIVE (NEGATIVE); LEUKOCYTES URINE NEGATIVE (NEGATIVE); NITRITE URINE NEGATIVE (NEGATIVE); PH URINE 6.5; PROTEIN URINE NEGATIVE (NEGATIVE); SP GRAVITY URINE 1.001; TURBIDITY URINE HAZY (CLEAR); UR EPITHELIAL CELLS <10 /HPF (<10); URINE BACTERIA NEGATIVE /HPF; URINE RBC <10 /HPF (<10); URINE WBC <10 /HPF (<10); UROBILINOGEN URINE NORMAL (NORMAL)
[2018-08-18 01:38] LABS: UR PROT RANDOM 9.8 mg/dL
[2018-08-18] MEDS: MORPHINE IV PRN ×2 (03:03→06:20)
[2018-08-18] MEDS: COREG PO SCH (03:07)
[2018-08-18 05:16] LABS: HEMATOCRIT 32.6 % (37.0-47.0); MCH 26.7 PG (27-31); MCHC 30.7 g/dL (33-37); MCV 86.9 FL (81-99); MPV 11.6 FL (7.4-10.4); RBC 3.75 XMIL (4.2-5.4); WBC 7.21 X1000 (4.8-10.8)
[2018-08-18] MEDS: SODIUM CHLORIDE 0.9% INJ SCH (06:00)
[2018-08-18] MEDS: HUMALOG SUBQ SCH (06:01)
[2018-08-18 06:07] LABS: ALB/GLOB RATIO 0.9; ALBUMIN 3.5 g/dL (3.5-5.0); CREATININE 1.2 mg/dL (0.5-0.9); POTASSIUM 3.5 mmol/L (3.5-5.1); TOTAL BILIRUBIN 0.28 mg/dL (0.20-1.00); TOTAL PROTEIN 7.6 g/dL (6.3-8.3)
--- NOTE | 2018-08-18 07:25 | Diag Imaging Result Doc PS360 ---
EXAM: CHEST-PORTABLE 08/18/2018 HISTORY: respiratory failure TECHNIQUE: AP portable at 0509 COMMENT: The lung bases appear somewhat clearer than on 08/17/2018. IMPRESSION: Improved pulmonary edema. Electronically signed by Rubén Leahy 08/18/2018 7:22 AM
[2018-08-18] MEDS: DUONEB (A & A) INH SCH (07:45)
[2018-08-18] MEDS: PLAVIX PO SCH (08:00)
[2018-08-18] MEDS: MAXIPIME 1 GM in NS 50 ML IV SCH (08:00)
[2018-08-18] MEDS: KLONOPIN PO SCH (08:00)
[2018-08-18] MEDS: PROTONIX IV SCH (08:00)
[2018-08-18] MEDS: ZYVOX 600 MG/D5W 600 MG/300 ML IVPB IV SCH (08:01)
[2018-08-18] MEDS: MIRALAX PO SCH (08:01)
[2018-08-18] MEDS: COLACE PO SCH (08:01)
[2018-08-18] MEDS: BASAGLAR SUBQ SCH (10:48)
[2018-08-18 13:53] VITALS: BP 92/52
--- NOTE | 2018-08-18 20:57 | PULMONOLOGY PROGRESS NOTE ---
DATE: 08/18/2018 SUBJECTIVE: Patient is awake, alert and conversant. She is eating breakfast. She is asking when she is to go home. OBJECTIVE: Vital Signs: Blood pressure 103/57, heart rate 99, respiratory rate 17, oxygen saturation 97%. She has been afebrile for the last 24 hours. HEENT: Pupils are equal and reactive. Oropharynx appears clear. Neck: Supple. Chest: Reveals good air entry bilaterally, without wheezing or rhonchi. Cardiac: S1, S2. Abdomen: Soft. Extremities: Without edema. LABORATORIES: Chest x-ray reveals cardiomegaly with mild vascular congestion. Lung bases have improved. IMPRESSION: A 57-year-old with COPD, acute myocardial infarction, acute pulmonary edema, acute hypoxemic and hypercapnic respiratory failure, with underlying mitral valve disease. She continues to improve and she is now off vasopressors. RECOMMENDATION: 1. Patient is an acceptable candidate for transfer to the floor. 2. Continue current antibiotic regimen. 3. Wean oxygen as tolerated. cc: Indra Bowens MD
--- NOTE | 2018-08-19 07:01 | PROGRESS NOTE ---
DATE: 08/18/2018 SUBJECTIVE: Patient resting in bed. OBJECTIVE: Vital signs: Temperature is 98.5, pulse 93, respiratory rate is 15 , blood pressure is 115/63, oxygen saturation 97%. HEENT: Atraumatic, normocephalic. Cardiovascular: S1, S2. Respiratory: Evidence of good air entry bilaterally. Abdomen: Soft, nontender. No masses felt. Extremities: No evidence of edema. Central nervous system: No obvious focal deficits noted. DIAGNOSTIC STUDIES: WBC is 7.21, platelet count of 204,000. Sodium is 134, potassium 3.5, chloride is 94, bicarbonate 24, BUN is 25, creatinine is 1.2. X-ray chest shows improved pulmonary edema. ASSESSMENT AND PLAN: 1. Acute respiratory failure. Improved. 2. Pneumonia. Continue antibiotics. 3. Pulmonary edema. Continue diuretics. Monitor intakes and outputs, as well as daily weights. A 2D echo of the heart indicates ejection fraction of about 35% to 40%. 4. Chronic obstructive pulmonary disease (COPD). Continue nebulized bronchodilators as well as oxygen. 5. Acute myocardial infarction (MO). Continue antiplatelet agent, beta-jaime , as well as low molecular weight heparin. Cardiology is following. 6. Paroxysmal atrial fibrillation. Continue rate-controlling agent. Cardiology following. 7. Diabetes mellitus. Monitor blood sugar level. Maintain patient on sliding scale insulin. 8. Deep vein thrombosis (DVT) prophylaxis. Patient is currently on Lovenox. 9. Gastrointestinal (GI) prophylaxis. Patient is on proton pump inhibitor. cc: Prince Michaels MD MTDD
--- NOTE | 2018-08-21 22:04 | DISCHARGE SUMMARY ---
ADMISSION DATE: 08/12/2018 DISCHARGE DATE: 08/18/2018 PRINCIPAL DIAGNOSIS: Acute respiratory failure. SECONDARY DIAGNOSES: 1. Pneumonia. 2. Pulmonary edema. 3. Acute systolic heart failure. 4. Chronic obstructive pulmonary disease. 5. Acute myocardial infarction. 6. Paroxysmal atrial fibrillation. 7. Diabetes mellitus. CONSULTATIONS DONE DURING THIS HOSPITAL STAY: Dr. Indra Bowens, Pulmonology, and Dr. Migel Nichols, Cardiology PROCEDURES DONE DURING THIS HOSPITAL STAY: Echocardiogram 08/12/2018. HOSPITAL COURSE: Ms. Stephanie Gregory is a 57-year-old female who was admitted to the hospital because of shortness of breath. She was diagnosed as having acute respiratory failure secondary to acute CHF as well as possible aspiration pneumonia. The patient was managed in the intensive care unit. She was placed on ventilator support for her respiratory failure and required diuretics for her congestive heart failure. She was also diagnosed as having an acute MO and was seen by the cardiology team. The patient was subsequently extubated and seemed to have been improving. While receiving care, she decided that she was going to leave the hospital against medical advice. cc: Prince Michaels MD
== END 2018-08-18 14:28 | disposition left against medical advice (07) | DRG 208 ==
LOC: SUPCPDRO → ED 01:35 → EDIPHOLD 05:12 → SUATTDRO 05:12 → ICU 14:04
PROVIDERS: ATTEND Internal Medicine
CPT/HCPCS: 31500; 36569; 51702; 71010; 71045; 74000; 74018; 80053; 80061; 80069; 81001; 82550; 82553; 82570; 82805; 82948; 83036; 83735; 83880; 83935; 84100; 84156; 84300; 84443; 84484; 84540; 85025; 85027; 85610; 87040; 87070; 87088; 87205; 87275; 87276; 87804; 93005; 93010; 93306; 94002; 94640; 94761; 94762; 96365; 96366; 96368; 96372; 96375; 96376; 99285; 99291; A9270; C8929; C9113; J0692; J1650; J1815; J1940; J2020; J2060; J2270; J2405; J2543; J3475; J3480; J7040; J7050; Q9957; S0164; XXXXX

== ENCOUNTER 2018-10-09 05:11 | Inpatient (IN) ==
[2018-10-09] MEDS ORDERED: DUONEB (A & A) INH ONE (05:19)
[2018-10-09] MEDS ORDERED: SOLU-MEDROL IV ONE (05:19)
[2018-10-09] MEDS ORDERED: DIPRIVAN 1% IV ONE (05:23)
[2018-10-09] MEDS ORDERED: DIPRIVAN 1% 1,000 MG/100 ML BOTTLE IV SCH (05:30)
[2018-10-09] MEDS ORDERED: HALDOL IM PRN (05:36)
[2018-10-09] MEDS ORDERED: ATIVAN IM ONE (05:36)
[2018-10-09] MEDS ORDERED: ATIVAN ONE (05:38)
--- NOTE | 2018-10-09 05:40 | PROVIDER DOCUMENTATION ---
HPI-General Adult - General Chief Complaint: Shortness of Breath Stated Complaint: resp. distress Time Seen by Provider: 10/09/18 05:18 Source: EMS Unable to obtain history due to:: other (intubation) Allergies/Adverse Reactions: Patient Allergies Allergy/AdvReac Type Severity Reaction Status Date / Time levofloxacin [From Levaquin] Allergy Intermediate RASH Verified 07/07/18 07:44 NSAIDS (Non-Steroidal Allergy Unknown Unknown Verified 07/07/18 07:44 Anti-Inflamma Home Medications: Home Medication List Medication Instructions Recorded Confirmed Last Taken Type Isosorbide Mononitrate [Imdur] 30 mg PO QHS 03/11/14 08/12/18 07/06/18 History ATORVAstatin [Lipitor] 80 mg PO QHS 08/14/15 08/12/18 07/06/18 History Albuterol 2.5MG/Ipratrop 0.5MG 3 ml INH Q6H #120 neb 11/01/17 08/12/18 07/06/18 Rx [Duoneb (A & A)] Clonazepam 0.5 mg PO TID 11/11/17 08/12/18 07/06/18 History Enalapril Maleate 10 mg PO DAILY 11/11/17 08/12/18 07/06/18 History Clopidogrel Bisulfate [Plavix] 75 mg PO DAILY 03/22/18 08/12/18 07/06/18 History Warfarin Sodium 1 tab PO DIRECTED 03/22/18 08/12/18 07/06/18 History Furosemide [Lasix] 80 mg PO DAILY tablet 04/05/18 08/12/18 07/06/18 Rx Magnesium Oxide [Mag-Ox] 1,600 mg PO DAILY 05/04/18 08/12/18 07/06/18 History Carvedilol [Coreg] 12.5 mg PO QHS 07/18/18 08/12/18 Unknown History Carvedilol [Coreg] 25 mg PO QAM 07/18/18 08/12/18 Unknown History Potassium Chloride 1 tab PO DAILY 07/18/18 08/12/18 Unknown History Prednisone 60 mg PO DAILY #15 tab 07/18/18 08/12/18 Unknown Rx Ranitidine HCl [Zantac] 150 mg PO DAILY 07/18/18 08/12/18 Unknown History - History of Present Illness -Gen Adult Nature of Presenting Problems: Pt comes to the ED intubated by EMS, pmh of COPD with multiple prior intubations, according to EMS tonight had respiratory distress and was intubated, pt unable to provide further history at this time and there is no family at bedside Location of Pain/Injury: reports: none Pain Radiation: reports: no radiation Quality of Pain: reports: none Onset/Duration: reports: unsure Timing: reports: still present Context/Activities at Onset: reports: none Modifying Factors: improves with: nothing Associated Symptoms: reports: shortness of breath Similar Symptoms Previously?: Yes Recently seen or treated by another doctor?: No Review of Systems - Adult - REVIEW OF SYSTEMS - ADULT ROS:: unobtainable per condition (pt is intubated) Constitutional: reports: no symptoms reported, see HPI Past History - Adult - PAST MEDICAL HISTORY-ADULT Review of Records: reports: Old Records Reviewed, Nursing Assessment Review, Medications Reviewed, Social history reviewed & non-contributory. Major Childhood Illnesses: reports: denies history Cardiovascular: reports: CAD, CHF, hyperlipidemia, [place] Respiratory: reports: COPD, pneumonia (was treated last hospitalization), other (hx of respiratory failure, hypoxia, hypercarbia) Gastrointestinal: reports: GERD Obstetrical/Gynecological: reports: denies history Genitourinary: reports: denies history Musculoskeletal: reports: chronic pain Neurological: reports: CVA Psychiatric: reports: anxiety Endocrine/Immune: reports: denies history Other Conditions: reports: denies history - PRIOR SURGERIES/PROCEDURES Surgical/Procedure History: reports: other, appendectomy, cholecystectomy - PRIOR HOSPITALIZATIONS Prior Hospitalizations: reports: for similar symptoms - IMMUNIZATION STATUS Childhood Immunizations: See Nurse Assessment Flu Vaccine: See Nurse Assessment - FAMILY HISTORY Family History: reviewed, not pertinent Physical Exam-General - PHYSICAL EXAM-ADULT Initial Vital Signs Reviewed: Yes - CONSTITUTIONAL General Appearance: other (intubated, unresponsive) - EYES Eyes: PERRL/EOMI - HEAD, EARS, NOSE, MOUTH & THROAT HENMT: normal ENT inspection - NECK Neck: normal inspection - RESPIRATORY Respiratory: wheezing - CARDIOVASCULAR Cardiovascular: tachycardia - GASTROINTESTINAL (ABDOMEN) Abdominal Exam: normal bowel sounds, soft - LYMPHATIC Lymphatic: no adenopathy - MUSCULOSKELETAL Back Exam: normal inspection Extremity: normal inspection - SKIN Integumentary: normal color - NEUROLOGIC Neurologic: other (unable to assess neuro due to intubation) - PSYCHIATRIC Psych/Mental Status: other (unable to assess psych due to intubation) Progress - PLAN OF CARE/RESULTS Progress/Plan/Lab Results: Vital Signs - 8 hr 10/09/18 05:25 Temperature 96 F L Pulse Rate 118 H Respiratory Rate 28 H Blood Pressure 157/82 O2 Sat by Pulse Oximetry 100 Orders Category Date Time Status Nursing- Obtain EKG ONCE Care 10/09/18 05:19 Active cxr [CHEST-1 VIEW] [RAD] Stat Exams 10/09/18 05:18 Ordered ABG [RESP] Routine Lab 10/09/18 05:19 Ordered CBC WITH ELECTRONIC DIFF [HEME] Stat Lab 10/09/18 05:18 Uncollected COMPREHENSIVE METABOLIC PANEL [CHEM] Stat Lab 10/09/18 05:18 Uncollected PRO B-NATRIURETIC PEPTIDE Stat Lab 10/09/18 05:18 Uncollected TROPONIN T Stat Lab 10/09/18 05:18 Uncollected Albuterol 2.5MG/Ipratrop 0.5MG [Duoneb (A & A)] Med 10/09/18 05:19 Discontinued 3 ml INH NOW ONE Haloperidol Lactate [Haldol] Med 10/09/18 05:36 Ordered 5 mg IM Q4H PRN PRN Lorazepam [Ativan] Med 10/09/18 05:36 Once 2 mg IM NOW ONE Methylprednisolone Sod Succ [Solu-Medrol] Med 10/09/18 05:19 Discontinued 125 mg IV NOW ONE Propofol [Diprivan 1%] Med 10/09/18 05:23 Discontinued 10 mg IV NOW ONE Propofol [Diprivan 1%] Med 10/09/18 05:30 Active 1,000 mg in 100 ml IV As Directed mls/hr Aerosol Treatments Routine Oth 10/09/18 05:19 Active Aerosol Treatments Stat Oth 10/09/18 05:19 Active EKG [EKG] Stat Ther 10/09/18 05:19 Ordered Result Diagrams: 10/09/18 05:40 10/09/18 05:40 - XRAY 1 XRAY Study: Chest Impression: Abnormal (bilat infiltrates) - CONSULTS/PCP/HOSPITALIST Notification #1 *Consult/PCP/Hospitalist*: [place] Time Discussed: 08:10 Consult Disposition: Will see in ED, Admit - CHANGE OF SHIFT REPORT (ED Provider) 1 Report Given and Care Transferred to:: Dr. Kwan Time of Transfer: 07:00 Items Pending: Labs, XRAY Results Departure - Departure Date of Disposition Decision: 10/09/18 Time of Disposition Decision: 08:06 DIAGNOSIS: COPD with acute exacerbation, Acute respiratory failure with hypoxia and hypercarbia Pneumonia Qualifiers: Pneumonia type: due to unspecified organism Laterality: bilateral Lung location: unspecified part of lung Qualified Code(s): J18.9 - Pneumonia, unspecified organism Disposition: ADMITTED INPATIENT 09 Certified Medical Emergency: Emergent Condition: Serious Referrals and Follow-Ups: RICARDO TORRES MD [Primary Care Provider] - - Critical Care Note This patient required my direct & personal management of CC.: Yes Total Time (mins): 35 Critical Care Statement: This patient required my direct personal management to treat or rule out processes, the absence of which, could potentiallly result in sudden, clinically significant life or limb threatening deterioration. Attestation - Physician/ MANDO Attestation Patient care was provided by Advanced Practice Provider:: No The physician spent face to face time with patient:: Yes Advanced Practice Provider documentation review:: Supervising physician onsite and consulted in the evaluation and care of this patient. The physician did have a face to face encounter with the patient.
[2018-10-09 05:49] LABS: ALLEN TEST YES; BE -0.9 mmoll (-3.0-3.0); BLOOD TYPE ARTERIAL; METHB 1.1 % (0.0-1.5); O2(CT) 15.6 mL/dL (15.0-23.0); PO2(98.6) 63 mmHg (60-100); SAMPLE BLOOD; SAO2 94.3 % (95.0-100.0); SRATE 14 BPM; THB 12.6 g/dL (11.5-17.4); TVOL 500 mL; pH(98.6) 7.25 (7.35-7.45)
[2018-10-09 05:51] LABS: PCO2(98.6) 63 mmHg (35-45)
[2018-10-09 05:52] LABS: MODALITY VENTILATOR; O2HB 87.7 % (95.0-99.0)
[2018-10-09] MEDS ORDERED: NS 1,000 ML IV ONE ×3 (06:18→12:04)
[2018-10-09] MEDS ORDERED: VERSED IV ONE (06:18)
--- NOTE | 2018-10-09 06:54 | Diag Imaging Result Doc PS360 ---
EXAM: CHEST-1 VIEW HISTORY: intubation TECHNIQUE: Portable chest single view COMPARISON: 08/18/2018 FINDINGS: There is an endotracheal tube in good position with the tip located approximately 3 cm above the noah. The lungs are well expanded. No cardiomegaly. There are increased interstitial markings bilaterally. No pleural effusions identified. IMPRESSION: Endotracheal tube in good position. There are bilateral infiltrates. Electronically signed by Armaan Baldwin 10/09/2018 6:52 AM
[2018-10-09 07:05] LABS: ALB/GLOB RATIO 0.9; ALBUMIN 3.6 g/dL (3.5-5.0); BASO# 0.05 X1000 (0.0-0.2); BASO% 0.2 % (0.0-0.8); CREATININE 1.5 mg/dL (0.5-0.9); EOS# 0.15 X1000 (0.0-0.7); EOS% 0.7 % (0.0-10.0); HEMATOCRIT 40.9 % (37.0-47.0); HEMOGLOBIN 12.5 g/dL (12.0-16.0); IMM GRAN# 0.08 X1000 (0.0-0.04); IMM GRAN% 0.4 % (0.0-0.5); LYMPH% 8.1 % (20.5-51.1); MCH 26.7 PG (27-31); MCHC 30.6 g/dL (33-37); MCV 87.2 FL (81-99); MONO% 3.4 % (1.7-9.3); MPV 12.7 FL (7.4-10.4); NEUT# 18.21 X1000 (1.4-6.5); NEUT% 87.2 % (42.2-75.2); PLT 248 X1000 (130-400); POTASSIUM 5.4 mmol/L (3.5-5.1); RBC 4.69 XMIL (4.2-5.4); RDW 16.7 % (11.5-14.5); TOTAL BILIRUBIN 0.18 mg/dL (0.20-1.00); TOTAL PROTEIN 7.7 g/dL (6.3-8.3); WBC 20.89 X1000 (4.8-10.8)
--- NOTE | 2018-10-09 07:32 | EKG Report ---
Test Performed on : 10/09/2018 06:33:20 AM Test Reason : respiratory distress Blood Pressure : / mmHG Vent. Rate : 099 BPM Atrial Rate : 099 BPM P-R Int : 138 ms QRS Dur : 092 ms QT Int : 372 ms P-R-T Axes : 041 073 124 degrees QTc Int : 477 ms Normal sinus rhythm. Possible Lateral infarct (cited on or before 12-AUG-2018) Cannot rule out Inferior infarct (cited on or before 12-AUG-2018) Abnormal ECG When compared with ECG of 13-AUG-2018 07:00, T wave inversion less evident in Anterior leads Unconfirmed Result
[2018-10-09] MEDS: FENTANYL 1,000 MICROGM in NS 80 ML IV SCH ×2 (07:45→15:24)
[2018-10-09] MEDS: VERSED 100 MG in NS 80 ML IV SCH (07:50)
[2018-10-09] MEDS ORDERED: ZOSYN 3.375 GM in NS 50 ML IV ONE (08:03)
[2018-10-09] MEDS ORDERED: VANCOMYCIN 1 GM/NS 1 GM/250 ML IVPB IV ONE (08:03)
[2018-10-09] MEDS ORDERED: DUONEB (A & A) INH PRN (10:18)
[2018-10-09] MEDS ORDERED: VANCOMYCIN IV PER PHARMACY MISC SCH (10:30)
[2018-10-09 10:46] LABS: INR 1.49; PROTIME 19.2 Seconds (11.0-16.0)
[2018-10-09] MEDS ORDERED: VANCOMYCIN 500 MG/NS 500 MG/100 ML IVPB IV ONE ×2 (11:00)
[2018-10-09] MEDS: MERREM 1 GM in NS 50 ML IV SCH ×2 (11:27→17:47)
[2018-10-09] MEDS: DUONEB (A & A) INH SCH ×4 (11:57→23:44)
[2018-10-09] MEDS: PROTONIX IV SCH (13:05)
[2018-10-09 13:12] LABS: URINE SOURCE CATH
[2018-10-09 13:16] LABS: BILIRUBIN URINE NEGATIVE (NEGATIVE); BLOOD URINE NEGATIVE (NEGATIVE); COLOR YELLOW; GLUCOSE URINE NEGATIVE (NEGATIVE); KETONE URINE TRACE mg/dL (NEGATIVE); LEUKOCYTES URINE NEGATIVE (NEGATIVE); NITRITE URINE NEGATIVE (NEGATIVE); PROTEIN URINE NEGATIVE (NEGATIVE); SP GRAVITY URINE 1.017; TURBIDITY URINE CLEAR (CLEAR); UR EPITHELIAL CELLS <10 /HPF (<10); URINE BACTERIA NEGATIVE /HPF; URINE RBC <10 /HPF (<10); URINE WBC <10 /HPF (<10); UROBILINOGEN URINE NORMAL (NORMAL)
[2018-10-09 13:39] LABS: UR AMPHETAMINES QUAL NONE DETECTED (NONE DETECT); UR BARBITUATES QUAL NONE DETECTED (NONE DETECT); UR BENZODIAZEPIN QUAL PRESUMPTIVE POSITIVE (NONE DETECT); UR CANNABINOIDS QUAL NONE DETECTED (NONE DETECT); UR COCAINE QUAL NONE DETECTED (NONE DETECT); UR METHADONE QUAL NONE DETECTED (NONE DETECT); UR OPIATES QUAL NONE DETECTED (NONE DETECT); UR OXYCODONE QUAL NONE DETECTED (NONE DETECT); UR PCP QUAL NONE DETECTED (NONE DETECT)
--- NOTE | 2018-10-09 14:21 | HISTORY AND PHYSICAL ---
CHIEF COMPLAINT: Acute respiratory failure requiring intubation. HISTORY OF PRESENT ILLNESS: This is a 57-year-old female, well known to our service having multiple admissions for respiratory failure. She presents via EMS intubated. According to EMS, the patient was intubated at the scene in the field. At the time of my exam, there is no family present so events leading up to this intubation are unknown. PAST MEDICAL HISTORY: 1. Chronic respiratory failure. 2. Chronic obstructive pulmonary disease. 3. Paroxysmal atrial fibrillation. 4. Diabetes mellitus type 2. 5. Hypomagnesemia. 6. Congestive heart failure with EF of 30 to 35 percent. 7. Chronic opioid use. PAST SURGICAL HISTORY: Appendectomy, cholecystectomy, cardiac cath, and carotid artery surgery. SOCIAL HISTORY: She smokes a pack a day. She does reportedly live with her . ALLERGIES: Per the chart, Levaquin which causes a rash and NSAIDs with unknown reaction. REVIEW OF SYSTEMS: Discussed with the patient with pertinent positives stated in the HPI. Otherwise unable to obtain from the patient as she is intubated and sedated. PHYSICAL EXAMINATION: GENERAL: This is a 57-year-old female who is lying flat in the bed in the emergency room intubated and sedated. VITAL SIGNS: Blood pressure 97/61 with a heart rate of 87, respirations are 16, temperature was 96 with O2 saturation 100% on FiO2 of 100% via ventilator. EYES: Pupils are 2 mm, very sluggish to react. Gaze is fixed forward. She has no visual or tactile blink. Sclerae are anicteric. HEENT: Head is normocephalic, atraumatic. Mucous membranes are dry. NECK: Supple with trachea midline. CARDIOVASCULAR: Regular rate and rhythm. S1 and S2 are appreciated. She has bilateral pretibial and pedal edema. Pulses are palpable x4 extremities. PULMONARY: Chest rises and falls symmetrically with respiration. She has scattered wheezes throughout. She is intubated. GASTROINTESTINAL: Abdomen is soft and nondistended with bowel sounds in all 4 quadrants. GENITOURINARY: Leary is patent to bedside bag. NEUROLOGIC: She is intubated, and has received sedation. Pupils are 2 mm, very sluggish to react. Gaze is fixed forward. She has no visual or tactile response. Of course, she does not follow commands. She does withdraw to pain with her left arm with a sternal rub moving extremities at random. LABORATORY: WBC is 20.8 with hemoglobin 12.5, hematocrit 40.9 and platelets of 248,000. Sodium is 137, potassium 5.4, BUN 34, creatinine 1.5 with a glucose of 321. Magnesium is 1.4. Troponin is less than 0.010. Blood cultures and sputum culture are pending. Chest x-ray reveals bilateral infiltrates with ET tube in good position. ASSESSMENT AND PLAN: 1. Hypercarbic respiratory arrest. 2. Chronic obstructive pulmonary disease acute exacerbation. 3. Bilateral pneumonia, possibly aspiration. 4. Leukocytosis secondary to above. 5. History of diabetes mellitus type 2. 6. History of paroxysmal atrial fibrillation. 7. History of hypomagnesium. 8. Chronic congestive heart failure with EF of 30 to 35 percent. 9. Chronic opioid use. PLAN: The patient will be admitted to ICU for close monitoring. She will be placed on telemetry. consult Dr. Bowens for ventilator management. place an NG tube. DuoNeb q.4 hours with q.2hours p.r.n. Steroids to taper. Antibiotic coverage of vancomycin dosed per pharmacy and Merrem. stat PT/INR as she is on warfarin. Strict I O and daily weights. Further treatments pending hospital course. Dictated by RALPH Lugo for Davin Traylor MD This chart was documented by, RALPH Lugo and accurately reflects the services performed, treatment plan and medical decisions as attested by the providers signature Davin Traylor MD. cc: RALPH Lugo MD [facility] CENTERMinh
[2018-10-09] MEDS ORDERED: LEVOPHED 8 MG in D5 1/2 NS 250 ML IV SCH (15:30)
[2018-10-09] MEDS: SOLU-MEDROL IV SCH ×2 (16:00→23:33)
[2018-10-09] MEDS: LOVENOX SUBQ SCH (16:00)
[2018-10-09] MEDS: HUMALOG SUBQ SCH ×3 (16:07→23:33)
--- NOTE | 2018-10-09 17:45 | HISTORY AND PHYSICAL ---
ADDENDUM - HISTORY AND PHYSICAL: Ms. Stephanie Gregory was admitted early this morning. There is no family member here at the bedside, so most of my history is gotten from the pieces of information from the chart. From the ER note, it appears Ms. Gregory was brought in by EMS. Multiple intubation attempts were done, but she was subsequently intubated on the field by the EMS personnel because of extreme shortness of breath and hypoxemia. Currently, Ms. Gregory is in the ICU, is intubated, sedated on Versed and fentanyl drips. PHYSICAL EXAMINATION: HEENT: Reveals mucosa is pink. CHEST: Air entry is bilaterally reduced. There are some transmitted sounds from the ventilator. ABDOMEN: Soft. EXTREMITIES: There is no pedal edema. CENTRAL NERVOUS SYSTEM: Patient will barely move lower extremities to painful stimulation. Pupils are pinpoint, but they are reactive. LABS: Have also been reviewed. WBC is 20.89, hemoglobin is 12.5, platelet count 248,000. Chemistry is also reviewed. Creatinine is 1.5, potassium is 5.4. Rest of chemistry is unremarkable. A chest x-ray this morning did show ET in good position. Bilateral infiltrates. ABG did show a pCO2 of 63, a PO2 was 63 oxyhemoglobin was 87.7, carboxyhemoglobin was 6. ASSESSMENT: 1. Acute on chronic hypercarbic respiratory failure. 2. Acute hypoxemic respiratory failure. Patient is currently intubated. 3. History of COPD, questionable exacerbation. She is on currently antibiotics and nebulization. We will add steroids. 4. Altered mental status at home. Unsure if it is medication induced. The patient has been multiple times in the hospital for similar presentation and most time is because of home prescription drug abuse. 5. Ongoing tobacco abuse. Patient's carboxyhemoglobin level is high. This will be corrected with oxygen therapy. 6. Please refer to the details of the history and physical dictated by the CLINICAL CARE MANAGER in the chart, which I have reviewed and I agree with. cc: Davin Traylor MD MTDD
--- NOTE | 2018-10-09 18:38 | PULMONOLOGY CONSULTATION ---
DATE: 10/09/2018 REQUESTING PHYSICIAN: Dr. Denis. REASON FOR CONSULTATION: Respiratory failure. HISTORY OF PRESENT ILLNESS: Ms. Gregory is a 57-year-old white female with COPD, cardiomyopathy, chronic hypoxemic respiratory failure, ongoing tobacco use, who was last evaluated by this practitioner for respiratory failure requiring mechanical ventilation in August. EMS was called to patient's residence today. The patient was intubated upon their arrival. No additional information available surrounding the events of this intubation. The patient was stabilized in the emergency room and transferred to the ICU. PAST MEDICAL HISTORY: Problem List: 1. COPD, with ongoing tobacco use (see laboratory data). 2. Mitral valve disease. 3. Atrial fibrillation. 4. Diabetes mellitus. 5. Previous stroke with residual weakness. 6. Hypertension. 7. Dyslipidemia. 8. Gastroesophageal reflux. 9. Obesity. 10. Sleep apnea. 11. Renal artery disease status post stent placement. 12. Status post cholecystectomy. 13. Status post carotid endarterectomy. 14. LV dysfunction, with an ejection fraction of 30-35%. SOCIAL HISTORY: Ongoing tobacco use. Remaining social history unknown. FAMILY HISTORY: Not immediately available. REVIEW OF SYSTEMS: Cannot be performed. PHYSICAL EXAMINATION: General: Reveals a mildly obese white female on mechanical ventilation. Vital Signs: BP 88/55, heart rate 71, respiratory rate 15, oxygen saturation 98%. HEENT: Pupils are equal and reactive. Oropharynx appears clear. Neck: Supple. Chest: Reveals prolonged expiratory phase with scattered rhonchi and wheezing. Cardiac: S1, S2. Abdomen: Obese and soft, with absence of bowel sounds. Extremities: Slightly cool to the touch. LABORATORIES: White blood count 20,000, hemoglobin 12.5, platelet count 248,000. Arterial blood gas early this morning reveals a pH of 7.25, pCO2 of 63, PO2 of 63, with a carboxyhemoglobin level of 6 and a lactate of 4.4. Sodium 137, potassium 5.4, chloride 92, bicarbonate 26, BUN 34, creatinine 1.5, glucose 321, magnesium 1.4. Chest x-ray reveals endotracheal tube in good position, with increased infiltrates in the upper lobes. IMPRESSION: A 57-year-old with severe COPD, COPD exacerbation, pneumonia, acute hypoxemic respiratory failure, acute hypercapnic respiratory failure, hyperglycemia, leukocytosis. RECOMMENDATION: 1. Continue ventilatory support until respiratory failure improves. 2. Additional volume resuscitation for hypotension/lactic acidosis. 3. Continue broad-spectrum antibiotics. 4. Routine bronchodilators. 5. Routine gastric acid suppression. 6. Begin DVT prophylaxis. 7. Encourage patient to stop smoking if she recovers from this acute event. TIME SPENT: Critical care : 65 minutes cc: Indra Bowens MD [facility]
[2018-10-09] MEDS: FENTANYL 2,000 MICROGM in NS 160 ML IV SCH (18:59)
[2018-10-10] MEDS: MERREM 1 GM in NS 50 ML IV SCH ×3 (01:44→17:42)
[2018-10-10] MEDS: FENTANYL 2,000 MICROGM in NS 160 ML IV SCH ×2 (01:45→08:33)
[2018-10-10] MEDS: HUMALOG SUBQ SCH ×6 (03:20→23:37)
[2018-10-10] MEDS: DUONEB (A & A) INH SCH ×6 (03:51→22:51)
[2018-10-10 04:45] LABS: ALLEN TEST YES; BE -0.2 mmoll (-3.0-3.0); BLOOD TYPE ARTERIAL; HCO3-(ACT) 24.7 mmoll (20.0-26.0); METHB 1.1 % (0.0-1.5); O2(CT) 11.9 mL/dL (15.0-23.0); O2HB 91.5 % (95.0-99.0); PCO2(98.6) 45 mmHg (35-45); PO2(98.6) 61 mmHg (60-100); SAMPLE BLOOD; SAO2 94.5 % (95.0-100.0); SRATE 15 BPM; THB 9.2 g/dL (11.5-17.4); TVOL 600 mL; pH(98.6) 7.36 (7.35-7.45)
[2018-10-10 04:46] LABS: MODALITY VENTILATOR
[2018-10-10 06:26] LABS: MCHC 30.3 g/dL (33-37); MCV 88.9 FL (81-99); MPV 13.2 FL (7.4-10.4); RBC 3.71 XMIL (4.2-5.4); RDW 16.9 % (11.5-14.5); WBC 6.33 X1000 (4.8-10.8)
[2018-10-10] MEDS: SOLU-MEDROL IV SCH ×3 (06:33→23:36)
[2018-10-10 07:11] LABS: ALBUMIN 3.3 g/dL (3.5-5.0); CALCIUM 8.4 mg/dL (8.8-10.2); MAGNESIUM 1.3 mg/dL (1.5-2.7); POTASSIUM 4.9 mmol/L (3.5-5.1); TOTAL BILIRUBIN 0.25 mg/dL (0.20-1.00); TOTAL PROTEIN 6.7 g/dL (6.3-8.3)
--- NOTE | 2018-10-10 07:35 | Diag Imaging Result Doc PS360 ---
EXAM: CHEST-PORTABLE - 10/10/2018 HISTORY: dyspnea TECHNIQUE: Portable chest COMPARISON: 10/09/2018 FINDINGS: Endotracheal tube remains in place. Heart size appears the upper range of normal. There is increased infiltrate and/or atelectasis at the left base compared to prior. There are no other significant interval changes identified. IMPRESSION: Increased infiltrate and/or atelectasis at left base. Pneumonia cannot be excluded. Electronically signed by Omar Childress 10/10/2018 7:33 AM
--- NOTE | 2018-10-10 09:17 | PROGRESS NOTE ---
DATE: 10/10/2018 SUBJECTIVE: This morning, Ms. Gregory continues to be intubated and sedated on Versed and fentanyl drip. was at the bedside at the time of the encounter. OBJECTIVE: Vital signs: Blood pressure is 105/60, pulse is 94, respiration is 15, temperature 97.8. The patient was saturating about 96% on mechanical ventilation. General: Ms. Gregory is a 57- year-old, female. She is in bed. Currently intubated. HEENT: Mucosa is pink and moist. Anicteric. Acyanotic. Neck: Supple. Chest: Air entry is bilaterally reduced. There are some transmitted sounds from the ventilator, but no wheezing. No rhonchi. Cardiovascular: Regular rate and rhythm. No murmurs, no rubs, no gallops. GI: Abdomen soft, distended. Bowel sounds present. Extremities: No pedal edema. Distal pulses present. IRONER SOCK: Patient is currently intubated and sedated. However, she would open her eyes to title stimulation and she will move her extremities. LABORATORY DATA: WBC is down to 6.33, hemoglobin is 10.0, platelet count of 156. Chemistry is also reviewed, all within normal range. Potassium has normalized to 4.9. Creatinine is on downward trend. It is down to 1.0. Liver function test is normal. The patient so far microbiology no positive result over there. A chest x-ray this morning shows an increased infiltrate and/or atelectasis at left base. Pneumonia cannot be excluded. The patient I's and O's: Urine output is 1140. CURRENT MEDICATIONS: 1. Lovenox 40 subcutaneous. 2. DuoNeb inhaler. 3. Fentanyl drip. 4. Sliding scale insulin. 5. Methylprednisolone 40 units q.8. 6. Versed drip. 7. Vancomycin. 8. Pantoprazole 40 mg IV q.12. ASSESSMENT: 1. Acute on chronic hypercarbic respiratory failure. The patient is currently intubated, pCO2 has normalized. This morning it is 45 on mechanical ventilation. 2. Acute hypoxemic respiratory failure. Patient continues to be intubated, still on FiO2 of about 60%. PEEP of 5. Seems to be saturating well. Pulmonary Medicine is on board. We will follow up with further recommendations from them. 3. History of chronic obstructive pulmonary disease with possible exacerbation. We will continue with antibiotics, bronchodilation therapy and steroids. 4. Left lower lobe infiltrate concerning for pneumonia. Patient is also on antibiotics. Sputum culture is still pending. 5. Altered mental status at home. Etiology is unclear. The patient has had multiple admissions for similar presentation, which has been associated with home medication prescription drug abuse. 6. Ongoing tobacco use. Patient's carboxyhemoglobin on admission was elevated. 7. Nutrition needs. So far we have not started the patient on anything yet. Will be pending evaluation of Pulmonary Medicine today in terms of SBT and extubation, before we will start the patient on any tube feedings. So, this morning, Ms. Gregory continues to be fairly stable. She is not on pressor. Blood pressures are fairly stable. was at the bedside. He did have a lot of concerns but primarily, he wanted to know when Ms. Gregory will be able to come off the ventilator, which I did express to him that it depends on a lot of clinical parameters and her readiness to be off. However, the final decision for her to come off the ventilator will be made by Pulmonary Medicine and will follow up with their recommendations. He also has a lot of concerns about Ms. Gregory's home medications and at one point, he suggested that if we could get her on 1 mg of Klonopin 3 times per day instead of the 0.5 three times per day that her primary care doctor had put her on, and I did notify him that Ms. Gregory is already on a lot of benzodiazepine for sedation purposes because of intubation. However, once she comes of all this critical care management, we will start her back on the same dose of the benzodiazepines that she was on before, and that any changes to her medication needs to be in discussion with her primary care doctor before. critical time spent 45 minutes cc: MD NAHID Larson
[2018-10-10] MEDS: VERSED 100 MG in NS 80 ML IV SCH (09:38)
[2018-10-10] MEDS ORDERED: MAGNESIUM SULFATE 2 GM/S.W.I. 2 GM/50 ML IVPB IV ONE (11:26)
[2018-10-10] MEDS: SODIUM CHLORIDE 0.9% INJ SCH (12:14)
[2018-10-10] MEDS: CLINIMIX E 4.25%-5% SOLUTION 1,000 ML IV SCH (12:14)
[2018-10-10] MEDS: PROTONIX IV SCH (12:14)
[2018-10-10] MEDS: ATIVAN IV SCH ×3 (12:15→23:36)
[2018-10-10] MEDS: PRECEDEX 200 MICROGM in NS 48 ML IV SCH ×5 (12:58→22:41)
[2018-10-10] MEDS: LOVENOX SUBQ SCH (15:40)
--- NOTE | 2018-10-10 20:31 | PULMONOLOGY PROGRESS NOTE ---
DATE: 10/10/2018 SUBJECTIVE: The patient will open her eyes. She did attempt to reach for the tube. She appears to be comfortable. OBJECTIVE: The patient has been afebrile for the last 24 hours. Blood pressure 112/70, heart rate 83, respiratory rate 15, oxygen saturation 98%. HEENT: Pupils are equal. Oropharynx is clear. Neck is supple. Chest reveals coarse rhonchi bilaterally. Cardiac exam: S1, S2. Abdomen is soft. Extremities are without edema. LABORATORY DATA: White blood count 6.33, hemoglobin 10.0, platelet count 156,000. Sputum culture is pending. Arterial blood gas reveals pH 7.36, pCO2 of 45, pO2 of 61, and her lactate is decreased to 3.2. Sodium 141, potassium 4.9, chloride 104, bicarbonate 22, BUN 19, creatinine 1.0, glucose 145, magnesium 1.3. IMPRESSION: 1. A 57-year-old with chronic obstructive pulmonary disease exacerbation. 2. Pneumonia. 3. Acute hypoxemic respiratory failure. 4. Acute hypercapnic respiratory failure. 5. Acute renal insufficiency, with improvement. RECOMMENDATIONS: 1. Continue ventilatory support with ventilator adjustments. Spontaneous breathing trial was performed, which she failed. 2. Initiate Clinimix and short-term nutrition bridge. 3. Continue antibiotics pending sputum culture results. 4. Continue bronchodilators. 5. Continue gastric acid suppression. 6. DVT prophylaxis. 7. Encourage smoking cessation. This was discussed with her . Time spent in critical care management: 30+ minutes cc: Indra Bowens MD [facility]TDD
[2018-10-10] MEDS: VANCOMYCIN 1,500 MG in NS 250 ML IV SCH (23:36)
[2018-10-11] MEDS: PRECEDEX 200 MICROGM in NS 48 ML IV SCH ×4 (01:24→08:47)
[2018-10-11] MEDS: MERREM 1 GM in NS 50 ML IV SCH ×3 (01:43→18:24)
[2018-10-11] MEDS: DUONEB (A & A) INH SCH ×6 (03:06→23:23)
[2018-10-11] MEDS: HUMALOG SUBQ SCH ×5 (03:56→21:52)
[2018-10-11] MEDS: CLINIMIX E 4.25%-5% SOLUTION 1,000 ML IV SCH ×2 (03:57→14:41)
[2018-10-11 05:04] LABS: BE -1.3 mmoll (-3.0-3.0); BLOOD TYPE ARTERIAL; PCO2(98.6) 40 mmHg (35-45); PO2(98.6) 142 mmHg (60-100); SAMPLE BLOOD; SRATE 12 BPM; TVOL 600 mL; pH(98.6) 7.38 (7.35-7.45)
[2018-10-11 05:05] LABS: MODALITY VENTILATOR
[2018-10-11] MEDS: ATIVAN IV SCH ×3 (06:06→17:50)
[2018-10-11 06:10] LABS: ALLEN TEST YES
[2018-10-11 06:17] LABS: HEMATOCRIT 35.2 % (37.0-47.0); HEMOGLOBIN 10.9 g/dL (12.0-16.0); MCH 27.6 PG (27-31); MCV 89.1 FL (81-99); MPV 12.9 FL (7.4-10.4); RBC 3.95 XMIL (4.2-5.4); WBC 9.36 X1000 (4.8-10.8)
[2018-10-11] MEDS: SOLU-MEDROL IV SCH ×2 (07:08→14:41)
--- NOTE | 2018-10-11 07:09 | Diag Imaging Result Doc PS360 ---
EXAM: CHEST-PORTABLE HISTORY: dyspnea TECHNIQUE: Portable chest COMPARISON: 10/10/2018 FINDINGS: The endotracheal tube is in good position. The lungs are well expanded. No cardiomegaly. Mild vascular distention. No consolidation. No pleural effusions identified. The markings in the left base are slightly less pronounced. IMPRESSION: Slight interval improvement Electronically signed by Armaan Baldwin 10/11/2018 7:07 AM
[2018-10-11 07:39] LABS: ALB/GLOB RATIO 0.9; ALBUMIN 3.3 g/dL (3.5-5.0); CALCIUM 9.1 mg/dL (8.8-10.2); MAGNESIUM 2.2 mg/dL (1.5-2.7); POTASSIUM 5.2 mmol/L (3.5-5.1); TOTAL BILIRUBIN 0.34 mg/dL (0.20-1.00); TOTAL PROTEIN 6.9 g/dL (6.3-8.3)
[2018-10-11] MEDS ORDERED: STERILE WATER INJ. INJ PRN (09:50)
[2018-10-11] MEDS ORDERED: MORPHINE IV PRN (09:51)
--- NOTE | 2018-10-11 10:44 | PROGRESS NOTE ---
DATE: 10/11/2018 SUBJECTIVE: This morning, Ms. Gregory continues to be intubated. I understand she has been extremely agitated over the course of last night. OBJECTIVE: Vital signs: Blood pressure is 159/88, pulse is 63, respiration is 18, temperature is 97.9 degrees. General: Ms. Tillman is a 57-year-old female. She is in bed, currently intubated, sedated on Precedex. HEENT: Mucosa is pink and moist. Anicteric. Acyanotic. Neck: Supple. Chest: Good air entry bilateral. There are some transmitted sounds from the ventilator. No rhonchi. Cardiovascular: Regular rate and rhythm. No murmurs, no rubs, no gallops. GI: Abdomen soft. Bowel sounds are present. Extremities: No pedal edema. Distal pulses present. 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 Every now and then she seems to be pulling her hands from the restraints. INPUT AND OUTPUT: Urine output was 795. The patient is currently positive balance of 2475. IMAGING STUDIES: This morning, a chest x-ray shows slight interval improvement. Lungs are well expanded. LABORATORY DATA: Hematology: WBC is 9.36, hemoglobin is 10.9, platelet count of 144,000. Chemistry: Also reviewed, potassium is 5.2, bicarb is 19, creatinine is 1. ABG: PH is 7.38, pCO2 of 40, PaO2 is 142. This was on mechanical ventilation, FiO2 of 50% with a tidal volume of 600 and PEEP of 5, with spontaneous rate of 12. Microbiology Data: Blood cultures 48 hours negative. Sputum culture showed normal juli. CURRENT MEDICATIONS: Also reviewed. She is on meropenem 1 g every 8 hours. Today is day 2. Vancomycin per pharmacy protocol. ASSESSMENT: 1. Acute on chronic hypercarbic respiratory failure, improved. 2. Acute hypoxemic respiratory failure. Patient is currently intubated. Seems to be synchronizing well with the ventilator. 3. History of chronic obstructive pulmonary disease with acute exacerbation. We will continue with antibiotics, bronchodilation therapy and steroids. 4. Left lower lobe infiltrate concerning for pneumonia. Patient will continue with the current antibiotic therapy. 5. Altered mental status at home. Etiology is unclear. Presumably from sedatives at home. 6. Ongoing tobacco abuse. 7. Lactic acidosis, improving. 8. Nutrition needs. Patient is currently on Clinimix. PLAN: So in general, Ms. Gregory seems to be doing fairly okay. We will continue with the current antibiotics, steroids, bronchodilation therapy. The patient is also on Lovenox for DVT prophylaxis and PPI. She is being seen by Pulmonary Medicine. cc: Davin Traylor MD
[2018-10-11] MEDS: GEODON IM PRN (11:37)
[2018-10-11] MEDS: DIPRIVAN 1% 1,000 MG/100 ML BOTTLE IV SCH ×3 (11:41→21:52)
[2018-10-11] MEDS: PROTONIX IV SCH (12:37)
[2018-10-11] MEDS: LOVENOX SUBQ SCH (14:41)
[2018-10-11] MEDS: LASIX IV SCH ×2 (14:41→21:51)
--- NOTE | 2018-10-11 18:08 | PULMONOLOGY PROGRESS NOTE ---
DATE: 10/11/2018 SUBJECTIVE: The patient becomes agitated when sedation is removed. She was placed on a spontaneous breathing trial and initially did well and then had oxygen desaturation and the trial was terminated. OBJECTIVE: Vital Signs: The patient has been afebrile for the last 24 hours. Blood pressure 159/88, heart rate 69, respiratory rate 13, oxygen saturation 100%. HEENT: Pupils are equal. Oropharynx appears clear. Neck: Is supple. Chest: Reveals coarse rhonchi bilaterally. Cardiac exam: S1-S2. Abdomen: Is soft. Extremities: Reveal 1+ peripheral edema. LABORATORIES: Sodium 140, potassium 5.2, chloride 106, bicarbonate 19, anion gap 15, BUN 31, creatinine 1.0. White blood count 9.36, hemoglobin 10.9, platelet count 144,000. Sputum culture reveals normal juli. Arterial blood gas reveals a pH 7.38, pCO2 of 40, PO2 of 142 with a lactate of 2.5. Chest x-ray reveals endotracheal tube in good position. Mild vascular distention, decreasing infiltrate at the left base. IMPRESSION: 1. A 57-year-old with chronic obstructive pulmonary disease exacerbation. 2. Pneumonia. 3. Severe chronic obstructive pulmonary disease. 4. Acute hypoxemic respiratory failure. 5. Acute hypercapnic respiratory failure. 6. Ongoing tobacco use. 7. Anxiety disorder. RECOMMENDATIONS: 1. Continue ventilatory support with daily weaning trials. 2. Decrease volume resuscitation given mild vascular distention on chest x-ray. 3. We will initiate propofol for sedation. 4. Continue antibiotics. 5. Continue deep vein thrombosis prophylaxis. TIME SPENT: In critical care management 30+ minutes. cc: Indra Bowens MD
[2018-10-12] MEDS: DIPRIVAN 1% 1,000 MG/100 ML BOTTLE IV SCH ×9 (00:40→22:40)
[2018-10-12] MEDS: SOLU-MEDROL IV SCH ×4 (00:41→22:40)
[2018-10-12] MEDS: ATIVAN IV SCH ×4 (00:41→18:27)
[2018-10-12] MEDS: HUMALOG SUBQ SCH ×6 (00:42→20:32)
[2018-10-12] MEDS: MERREM 1 GM in NS 50 ML IV SCH ×3 (01:35→18:40)
[2018-10-12] MEDS: DUONEB (A & A) INH SCH ×5 (03:26→20:04)
[2018-10-12] MEDS: CLINIMIX E 4.25%-5% SOLUTION 1,000 ML IV SCH ×2 (03:54→18:27)
[2018-10-12 04:52] LABS: ALLEN TEST YES; BE 6.3 mmoll (-3.0-3.0); BLOOD TYPE ARTERIAL; HCO3-(ACT) 29.8 mmoll (20.0-26.0); METHB 1.3 % (0.0-1.5); O2(CT) 14.5 mL/dL (15.0-23.0); O2HB 94.4 % (95.0-99.0); PCO2(98.6) 49 mmHg (35-45); PO2(98.6) 77 mmHg (60-100); SAMPLE BLOOD; SAO2 97.3 % (95.0-100.0); SRATE 12 BPM; THB 10.9 g/dL (11.5-17.4); TVOL 600 mL; pH(98.6) 7.42 (7.35-7.45)
[2018-10-12 04:54] LABS: MODALITY VENTILATOR
[2018-10-12 05:07] LABS: AGAP 13; ALB/GLOB RATIO 0.9; ALBUMIN 3.1 g/dL (3.5-5.0); ALKALINE PHOSPHATASE 57 U/L (32-104); BUN 44 mg/dL (8-22); CALCIUM 9.4 mg/dL (8.8-10.2); CHLORIDE 101 mmol/L (98-107); COSMO 288; CREATININE 0.9 mg/dL (0.5-0.9); ESTIMATED GFR > 60; GLUCOSE 144 mg/dL (70-104); GOT 18 U/L (10-30); GPT 10 U/L (10-36); POTASSIUM 4.6 mmol/L (3.5-5.1); SODIUM 137 mmol/L (136-145); TCO2 23 mmol/L (25-35); TOTAL BILIRUBIN 0.35 mg/dL (0.20-1.00); TOTAL PROTEIN 6.7 g/dL (6.3-8.3)
[2018-10-12] MEDS: LASIX IV SCH ×2 (05:30→18:40)
[2018-10-12 05:34] LABS: MAGNESIUM 2.1 mg/dL (1.5-2.7); PHOSPHORUS 4.7 mg/dL (2.7-4.5)
--- NOTE | 2018-10-12 07:00 | Diag Imaging Result Doc PS360 ---
EXAM: CHEST-PORTABLE HISTORY: dyspnea TECHNIQUE: Portable chest single view COMPARISON: 10/11/2018 FINDINGS: No change in the endotracheal tube. The lungs are well expanded. Cardiomegaly. No pleural effusions identified. Mild vascular distention remains. The overall appearance of the chest is quite similar to that of the prior exam. IMPRESSION: No significant interval change. Electronically signed by Armaan Baldwin 10/12/2018 6:58 AM
[2018-10-12 08:20] LABS: MCHC 31.4 g/dL (33-37); MCV 85.8 FL (81-99); MPV 12.7 FL (7.4-10.4); RBC 4.08 XMIL (4.2-5.4); RDW 16.7 % (11.5-14.5); WBC 9.89 X1000 (4.8-10.8)
--- NOTE | 2018-10-12 10:34 | PROGRESS NOTE ---
DATE: 10/12/2018 SUBJECTIVE: This morning Ms. Gregory continues to be intubated and sedated on propofol. Per the nursing staff, the night was uneventful. The patient is tolerating well the Clinimix, and she is also making adequate urine output. OBJECTIVE: Vital Signs: Blood pressure 105/62, pulse 57, respirations 20, and temperature 97 degrees. Patient was saturating 100% on mechanical ventilation. General: Ms. Gregory is a 57-year- old female. She is in bed. She is still intubated. She is synchronizing well with the ventilator. Mucosa is pink and moist. Anicteric. Acyanotic. Neck: Supple. Chest: Good air entry bilateral with some transmitted sounds from the ventilator. No rhonchi and no crackles. Cardiovascular: Regular rate and rhythm. No murmurs, no rubs, no gallops. Abdomen: Soft. Bowel sounds are present. Extremities: No pedal edema. Distal pulses are present. 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 She will however move the lower extremities to painful stimulation. Pupils are equal and they are reactive. LABORATORY: The patient I's and O's, urine output was 4550. Still positive balance of 392 during the hospital course MEDICATIONS: Current medications have all been reviewed. Antimicrobials include meropenem. Today is day 3 and vancomycin. Today is day 3. So far, blood cultures and sputum culture have all been negative. LABORATORY DATA: WBC is 9.89, hemoglobin is 11, and platelet count of 155,000. Chemistry is also reviewed which is completely normal. IMAGING STUDIES: A chest x-ray this morning shows no interval change. ASSESSMENT: 1. Acute on chronic hypercarbic respiratory failure, improved. The patient's pCO2 this morning on ABG is 49 on mechanical ventilation. 2. Acute hypoxemic respiratory failure. Patient is currently intubated. She is doing well under the ventilator. Pulmonary Medicine is on board. We will continue following recommendations from them. 3. History of COPD with acute exacerbation. We will continue with standard of care including antibiotics, bronchodilation therapy, and steroids. Pulmonary is on board. 4. Left lower lobe infiltrate concerning for pneumonia. We will continue with the current antibiotic therapy. 5. Altered mental status at home. Etiology is unclear presumably from sedative abuse at home. 6. Ongoing tobacco abuse. I have had a very long discussion with the about tobacco cessation, which he also apparently smokes as well. 7. Lactic acidosis improved. 8. Nutritional needs. Patient is currently on Clinimix. So in general, Ms. Gregory is a 57-year-old female who has been admitted to the hospital from 10/09/2018. Apparently, she was complaining of shortness of breath. She has COPD who continues to be smoking. EMS was called to her home and was intubated upon arrival. They brought her to the emergency department intubated. She continues to be intubated. Pulmonary Medicine is on board. She is being treated for respiratory failure pneumonia. She will continue with further recommendations from Pulmonary Medicine as regards to vent management. cc: Davin Traylor MD [facility]
[2018-10-12] MEDS: VANCOMYCIN 1,500 MG in NS 250 ML IV SCH (11:18)
[2018-10-12] MEDS: SODIUM CHLORIDE 0.9% INJ SCH (11:19)
[2018-10-12] MEDS: PROTONIX IV SCH (11:19)
--- NOTE | 2018-10-12 18:08 | Diag Imaging Result Doc PS360 ---
EXAM: CHEST-PORTABLE 10/12/2018 HISTORY: central line placement TECHNIQUE: AP portable semiupright at 1758 COMMENT: There is an endotracheal tube with its tip slightly below the thoracic inlet and a right internal jugular central venous catheter with its tip just above the right atrium. There are atelectatic appearing opacities in the left lower lobe and ill-defined opacity in the right lower lobe. The latter has improved since 10/12/2018 at 0514 as the right hemidiaphragm is now completely visible. There is also been some improvement in the left base. IMPRESSION: Improved atelectasis and/or pneumonia. Electronically signed by Rubén Leahy 10/12/2018 6:06 PM
[2018-10-12] MEDS: LOVENOX SUBQ SCH (18:27)
--- NOTE | 2018-10-12 18:49 | OPERATIVE NOTE ---
PROCEDURE DATE: PREOPERATIVE DIAGNOSES: 1. Poor peripheral venous access. 2. Respiratory failure. POSTOP DIAGNOSIS: 1. Poor peripheral venous access. 2. Respiratory failure. PROCEDURE PERFORMED: Central line placement with ultrasound guidance. SURGEON: Ashu Platt MD. ESTIMATED BLOOD LOSS: Scant. COMPLICATIONS: None apparent. FINDINGS: The right internal jugular vein was visualized with ultrasound. It was compressible, patent without thrombus. TECHNIQUE: The patient was kept supine in her ICU bed. The right neck was prepped and draped in usual sterile fashion. 1% lidocaine was used to anesthetize the skin. The vein was found with ultrasound and was accessed under ultrasound guidance. On the first attempt, the wire did not pass through the needle easily. The vein was then reaccessed and on the second attempt, I was able to pass the wire easily. The needle was removed. The track was dilated. A triple-lumen central venous catheter was passed over the wire into the vein via the Seldinger technique. The wire was removed. All ports leslie back blood and were flushed with saline easily. It was stitched to the skin with silk suture and a sterile dressing was applied. There were no apparent complications. cc: Ashu Platt MD
--- NOTE | 2018-10-12 19:06 | PULMONOLOGY PROGRESS NOTE ---
DATE: 10/12/2018 SUBJECTIVE: The patient is currently comfortable on mechanical ventilation. When the ventilator is briefly interrupted, she develops shallow tidal volumes with significant increased respiratory rate with evidence of increased work of breathing. OBJECTIVE: Vital Signs: The patient has been afebrile for the last 24 hours. Blood pressure 113/62, heart rate 60, respiratory rate 16, oxygen saturation 100%. HEENT: Pupils are equal and reactive. Oropharynx appears clear. Neck: Supple. Chest: Reveals prolonged expiratory phase with distant wheezing. Cardiac: S1, S2. Abdomen: Obese and soft, with decreased bowel sounds. Extremities: Reveal trace edema. LABORATORIES: Chest x-ray reveals infiltrates at the left base without significant change. Sputum cultures reveal normal juli. Arterial blood gas reveals a pH 7.42, PCO2 49, PO2 of 77. IMPRESSION: A 57-year-old with: 1. COPD exacerbation. 2. Pneumonia. 3. Acute hypoxemic respiratory failure. 4. Acute hypercapnic respiratory failure. 5. Recurrent intubation for above. 6. Ongoing tobacco use. 7. Anxiety disorder. 8. Failure at weaning attempt again today. RECOMMENDATIONS: 1. Continue daily ventilatory weaning trials. 2. Additional diuresis today if tolerated. 3. Continue propofol. 4. Continue deep vein thrombosis prophylaxis. TIME SPENT: Critical care 30+ minutes. cc: Indra Bowens MD
[2018-10-13] MEDS: DUONEB (A & A) INH SCH ×7 (00:03→23:15)
[2018-10-13] MEDS: HUMALOG SUBQ SCH ×6 (00:39→23:22)
[2018-10-13] MEDS: ATIVAN IV SCH ×3 (00:46→18:08)
[2018-10-13] MEDS: LASIX IV SCH (00:46)
[2018-10-13] MEDS: DIPRIVAN 1% 1,000 MG/100 ML BOTTLE IV SCH ×9 (01:13→23:39)
[2018-10-13] MEDS: MERREM 1 GM in NS 50 ML IV SCH ×3 (02:44→20:19)
[2018-10-13 04:44] LABS: HEMOGLOBIN 11.6 g/dL (12.0-16.0); MCHC 32.2 g/dL (33-37); MCV 83.7 FL (81-99); MPV 12.7 FL (7.4-10.4); RBC 4.3 XMIL (4.2-5.4); RDW 16.8 % (11.5-14.5); WBC 8.9 X1000 (4.8-10.8)
[2018-10-13 04:53] LABS: ALLEN TEST YES; BE 8.5 mmoll (-3.0-3.0); BLOOD TYPE ARTERIAL; HCO3-(ACT) 31.5 mmoll (20.0-26.0); O2(CT) 19.1 mL/dL (15.0-23.0); O2HB 94.8 % (95.0-99.0); PCO2(98.6) 46 mmHg (35-45); PO2(98.6) 85 mmHg (60-100); SAMPLE BLOOD; SAO2 97.2 % (95.0-100.0); SRATE 8 BPM; THB 14.3 g/dL (11.5-17.4); TVOL 600 mL; pH(98.6) 7.47 (7.35-7.45)
[2018-10-13 05:02] LABS: MODALITY VENTILATOR
[2018-10-13 05:20] LABS: ALB/GLOB RATIO 0.9; ALBUMIN 3.6 g/dL (3.5-5.0); CALCIUM 9.3 mg/dL (8.8-10.2); POTASSIUM 4.1 mmol/L (3.5-5.1); TOTAL BILIRUBIN 0.35 mg/dL (0.20-1.00); TOTAL PROTEIN 7.4 g/dL (6.3-8.3)
[2018-10-13] MEDS ORDERED: ATIVAN IV ONE (06:00)
--- NOTE | 2018-10-13 07:45 | Diag Imaging Result Doc PS360 ---
EXAM: CHEST-PORTABLE INDICATION: dyspnea TECHNIQUE: One view COMPARISON: 10/12/2018 FINDINGS: Support tubes and lines are in stable positions. Patient is rotated significantly toward the right. Given the differences in positioning, the atelectasis at the left lung base and ill-defined opacity at the right lung base are essentially stable. Cardiac silhouette is stable. IMPRESSION: Grossly stable chest given differences in positioning. Electronically signed by Jose Escoto 10/13/2018 7:43 AM
[2018-10-13] MEDS: SOLU-MEDROL IV SCH ×3 (07:50→23:39)
[2018-10-13] MEDS: CLINIMIX E 4.25%-5% SOLUTION 1,000 ML IV SCH ×2 (07:50→20:19)
[2018-10-13] MEDS ORDERED: MORPHINE IV PRN (09:27)
[2018-10-13] MEDS ORDERED: MORPHINE ONE (09:34)
[2018-10-13 09:37] LABS: ALLEN TEST NO; BE 8.3 mmoll (-3.0-3.0); BLOOD TYPE ARTERIAL; HCO3-(ACT) 31.2 mmoll (20.0-26.0); METHB 0.7 % (0.0-1.5); O2(CT) 15.9 mL/dL (15.0-23.0); O2HB 90.6 % (95.0-99.0); PCO2(98.6) 44 mmHg (35-45); PO2(98.6) 63 mmHg (60-100); SAMPLE BLOOD; SAO2 92.5 % (95.0-100.0); THB 12.5 g/dL (11.5-17.4); pH(98.6) 7.48 (7.35-7.45)
[2018-10-13 09:38] LABS: MODALITY VENTILATOR
--- NOTE | 2018-10-13 10:03 | PROGRESS NOTE ---
DATE: 10/13/2018 SUBJECTIVE: Ms. Gregory was admitted on 10/09/2018. She is a patient of Dr. Balderrama. Admitted the morning of 10/09/2018. No family member at the bedside. History got a piece of information in the chart. Brought to the EMS, multiple intubation attempts were done. She was subsequently intubated in the field by personnel because of extreme shortness of breath and hypoxemia. Came to the ICU, sedated with Versed and fentanyl drips. OBJECTIVE: General: She is sleeping and appears comfortable. Vitals: Remains afebrile, temperature 97.2 degrees, pulse 78, respirations 8, blood pressure 130/80. Eyes: Pupils are equal, round. Lungs: Are clear in all lung acosta. Cardiovascular: Regular rhythm and rate without murmur or S3. Abdomen: Soft. Skin: Warm and dry. URINE OUTPUT: 7500 mL. LABORATORY: Blood sugar 160, 116, 193. IMAGING: Chest x-ray from this morning, grossly stable chest given difference in positioning. ASSESSMENT AND PLAN: 1. Chronic obstructive pulmonary disease exacerbation with pneumonia. Acute hypoxemic respiratory failure. Acute hypercapnic respiratory failure. Recurrent intubation for the above. 2. Ongoing tobacco use. 3. Medicated for anxiety disorder, so attempting to wean per Pulmonary. 4. Review of her orders, she is on Clinimix 75 mL an hour, methylprednisone 40 mg IV q.8, Protonix 40 mg IV q.24 hours, vancomycin 1500 mg IV q.36 hours. cc: Kirk Cintron MD
--- NOTE | 2018-10-13 11:49 | Diag Imaging Result Doc PS360 ---
EXAM: CT THORAX W/O CONTRAST HISTORY: Abnormal left base TECHNIQUE: CT chest without contrast COMPARISON: 03/31/2018 FINDINGS: There are tiny bilateral pleural effusions. There are dense infiltrates in the posterior lower lobes with atelectasis. There are smaller groundglass infiltrates in the upper and mid lungs. Endotracheal tube in good position. No cardiomegaly. There is mild pulmonary edema. Prominent atherosclerosis. No aortic aneurysm. There are small mediastinal nodes. There is a right jugular line. No pneumothorax. IMPRESSION: Bilateral basilar infiltrates and atelectasis with small pleural effusions. There is mild pulmonary edema as well. This exam was performed using automated exposure control, adjustment of mA or kV according to patient size, and/or use of iterative reconstruction technique. Electronically signed by Armaan Baldwin 10/13/2018 11:46 AM
[2018-10-13] MEDS: PROTONIX IV SCH (12:41)
[2018-10-13] MEDS: SODIUM CHLORIDE 0.9% INJ SCH (12:42)
[2018-10-13] MEDS: VANCOMYCIN 1,500 MG in NS 250 ML IV SCH (12:51)
[2018-10-13] MEDS: LOVENOX SUBQ SCH (15:11)
--- NOTE | 2018-10-13 20:25 | PULMONOLOGY PROGRESS NOTE ---
DATE: 10/13/2018 SUBJECTIVE AND INTERIM HISTORY: The patient was awake, alert this morning. She was placed on a spontaneous breathing trial. She did well for approximately an hour and 15 minutes and her arterial blood gases were acceptable. Unfortunately, prior to extubation, she became hypertensive, agitated and hypoxemic and was placed back on mechanical ventilation. The patient was sent for a CT scan of the thorax. OBJECTIVE: Vital Signs: BP 139/82, heart rate 75, respiratory rate 13, oxygen saturation 95%. HEENT: Pupils are equal and reactive. Oropharynx is clear. Neck: Supple. Chest: Reveals crackles in both lung bases. Cardiac: S1, S2. Abdomen: Abdomen is obese and soft. Extremities: Without edema. LABORATORIES: CT scan of the thorax is reviewed. Endotracheal tube is in good position. She has bibasilar pneumonia with ground-glass changes in the upper lobes with a small effusion. White blood count 8.9, hemoglobin 11.6, platelet count 188,000. Sodium 138, potassium 4.1, chloride 95, bicarbonate 29, BUN 53, creatinine 1.0, glucose 142. Arterial blood gas: pH 7.48, pCO2 of 44, PO2 of 83. No new microbiology data. IMPRESSION: A 57-year-old with: 1. Pneumonia. 2. Chronic obstructive pulmonary disease exacerbation. 3. Acute hypoxemic respiratory failure. 4. Acute hypercapnic respiratory failure. 5. Status post failed weaning trial this morning as outlined above. 6. Ongoing tobacco use. 7. Anxiety disorder. RECOMMENDATIONS: 1. Continue antibiotics. 2. Continue propofol for sedation/comfort. 3. Continue deep vein thrombosis prophylaxis. 4. Continue Clinimix as a bridge for nutrition. 5. Ongoing dialogue with her about the patient's pulmonary issues and need to stop smoking. TIME SPENT: Critical care 30 minutes. cc: Indra Bowens MD
[2018-10-14] MEDS: ATIVAN IV SCH ×5 (00:24→23:28)
[2018-10-14] MEDS: DIPRIVAN 1% 1,000 MG/100 ML BOTTLE IV SCH ×10 (00:31→22:34)
[2018-10-14] MEDS: HUMALOG SUBQ SCH ×6 (01:04→23:30)
[2018-10-14] MEDS: DUONEB (A & A) INH SCH ×6 (03:00→23:08)
[2018-10-14] MEDS: MERREM 1 GM in NS 50 ML IV SCH ×3 (03:34→19:22)
[2018-10-14 04:51] LABS: HEMATOCRIT 33.2 % (37.0-47.0); HEMOGLOBIN 10.8 g/dL (12.0-16.0); MCH 27.5 PG (27-31); MCHC 32.5 g/dL (33-37); MCV 84.5 FL (81-99); MPV 12.9 FL (7.4-10.4); RBC 3.93 XMIL (4.2-5.4); RDW 16.7 % (11.5-14.5); WBC 6.3 X1000 (4.8-10.8)
[2018-10-14 05:27] LABS: ALLEN TEST YES; BE 6.7 mmoll (-3.0-3.0); BLOOD TYPE ARTERIAL; HCO3-(ACT) 30.2 mmoll (20.0-26.0); METHB 0.8 % (0.0-1.5); O2(CT) 12.8 mL/dL (15.0-23.0); O2HB 96.3 % (95.0-99.0); PCO2(98.6) 44 mmHg (35-45); PO2(98.6) 127 mmHg (60-100); SAMPLE BLOOD; SAO2 99.2 % (95.0-100.0); SRATE 8 BPM; THB 9.3 g/dL (11.5-17.4); TVOL 600 mL; pH(98.6) 7.46 (7.35-7.45)
[2018-10-14 05:29] LABS: MODALITY VENTILATOR
[2018-10-14 05:29] LABS: AGAP 10; ALBUMIN 3.3 g/dL (3.5-5.0); ALKALINE PHOSPHATASE 49 U/L (32-104); BUN 51 mg/dL (8-22); CALCIUM 8.9 mg/dL (8.8-10.2); CHLORIDE 99 mmol/L (98-107); COSMO 289; CREATININE 0.8 mg/dL (0.5-0.9); ESTIMATED GFR > 60; GLUCOSE 130 mg/dL (70-104); GOT 17 U/L (10-30); GPT 9 U/L (10-36); POTASSIUM 5.1 mmol/L (3.5-5.1); SODIUM 137 mmol/L (136-145); TCO2 28 mmol/L (25-35); TOTAL BILIRUBIN 0.25 mg/dL (0.20-1.00); TOTAL PROTEIN 6.5 g/dL (6.3-8.3)
--- NOTE | 2018-10-14 06:49 | Diag Imaging Result Doc PS360 ---
EXAM: CHEST-PORTABLE HISTORY: dyspnea TECHNIQUE: Portable chest single view COMPARISON: 10/13/2018 FINDINGS: Endotracheal and right jugular lines in good position. Worsening infiltrates in the right lung base, but with improvement in the left base. There is mild pulmonary edema. There is likely a small right pleural effusion. IMPRESSION: Mixed areas of improvement and worsening. Electronically signed by Armaan Baldwin 10/14/2018 6:46 AM
[2018-10-14] MEDS: CLINIMIX E 4.25%-5% SOLUTION 1,000 ML IV SCH ×2 (07:57→22:34)
[2018-10-14] MEDS: SOLU-MEDROL IV SCH ×3 (07:57→22:34)
[2018-10-14 09:43] LABS: ALLEN TEST YES; BE 7.4 mmoll (-3.0-3.0); BLOOD TYPE ARTERIAL; HCO3-(ACT) 30.7 mmoll (20.0-26.0); METHB 0.9 % (0.0-1.5); O2(CT) 14.7 mL/dL (15.0-23.0); O2HB 95.5 % (95.0-99.0); PCO2(98.6) 48 mmHg (35-45); PO2(98.6) 84 mmHg (60-100); SAMPLE BLOOD; SAO2 97.8 % (95.0-100.0); SRATE 8 BPM; THB 10.9 g/dL (11.5-17.4); TVOL 600 mL; pH(98.6) 7.44 (7.35-7.45)
[2018-10-14 09:44] LABS: MODALITY VENTILATOR
[2018-10-14] MEDS: PROTONIX IV SCH (12:00)
--- NOTE | 2018-10-14 12:22 | PROGRESS NOTE ---
DATE: 10/14/2018 Ms. Gregory was unable to tolerate weaning this morning, put back on the ventilator. Family was pretty upset and wanted to try and transfer her to another hospital. I told them if they had a physician who would want to take them, I would help him with that. I tried to explain the big picture, that she has severe COPD with an underlying pneumonia and that she is not able to get good gas exchange, oxygenation. Until she is able, we will have to keep her on the ventilator. If we keep her on the ventilator for a prolonged time, we may have to think about tracheostomy, but the main problem is her underlying COPD. PHYSICAL EXAMINATION: Today, she is back on the ventilator. Temperature is 97.1 degrees, pulse 60, respirations 7, blood pressure 101/56. Pupils are equal. No distended neck veins. Lungs are clear in all lung acosta. Cardiovascular Examination: Regular rhythm and rate without murmur or S3. Abdomen is soft. Skin is warm and dry. LABORATORY DATA: Blood sugar 138, 147, 135. Her chest x-ray, mixed areas of improvement and worsening but about the same this morning. ASSESSMENT AND PLAN: 1. Chronic obstructive pulmonary disease exacerbation, acute hypoxemic respiratory failure, acute hypercapnic respiratory failure, status post failed weaning this morning. Continue to encourage tobacco cessation. Continue her present antibiotics. Continue propofol for sedation and comfort. She is on deep venous thrombosis prophylaxis. 2. Nutrition. Continue Clinimix as bridge for nutrition. 3. Anxiety disorder, aware. I have emphasized to the family that she is going to need to quit smoking and it will be difficult to get her off the ventilator. We will continue to try. REVIEW OF HER ORDERS: She is on Clinimix 75 mL an hour. She is on norepinephrine as needed for pressure, Ativan 1 mg IV q.6 hours, meropenem 1 g IV q.8 hours, methylprednisone 40 mg IV q.8 hours, Protonix 40 mg IV q.24 hours, vancomycin 1500 mg IV q.24 hours. cc: Kirk Cintron MD
[2018-10-14] MEDS: VANCOMYCIN 1,500 MG in NS 250 ML IV SCH (13:00)
--- NOTE | 2018-10-14 14:22 | PULMONOLOGY PROGRESS NOTE ---
DATE: 10/14/2018 SUBJECTIVE: The patient is sedated, but she is arousable. She failed weaning attempt earlier this morning. OBJECTIVE: Vital Signs: The patient has been afebrile for the last 24 hours. Blood pressure 146/77, heart rate 67, respiratory rate 12, oxygen saturation 98%. HEENT: Pupils are equal and reactive. Oropharynx is clear. Neck: Supple. Chest: Chest reveals prolonged expiratory phase with scattered rhonchi. Cardiac exam: S1, S2. Abdomen: Soft with positive bowel sounds present. Extremities: Reveal trace edema. LABS AND X-RAYS: Chest x-ray this morning reveals slight increased infiltrates in the right base with slight improvements on the left. Sodium 137, potassium 5.1, chloride 99, bicarbonate 28, BUN 51, creatinine 0.8. Sputum culture repeated yesterday is pending. Immunoglobulin levels have been sent this morning. IMPRESSION: A 57-year-old with: 1. Bilateral pneumonia, most prominently identified on CT scan of the thorax. 2. Chronic obstructive pulmonary disease exacerbation. 3. Acute hypoxemic and acute hypercapnic respiratory failure. 4. Failed weaning trial. She did do a little better this morning. 5. Ongoing tobacco use. 6. Anxiety disorder. DISCUSSION: This is a 57 year old with problems outlined above. The patient has been difficult to wean because of those issues, but I believe she will be successfully liberated from mechanical ventilation. Unfortunately, there are some family dynamic issues at play, and family have indicated that they are unhappy with the care. By report, they indicated they had an accepting physician at another hospital, but that did not come to fruition. 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 Rivas will be notified and asked to accept care of this patient tomorrow morning. RECOMMENDATIONS: 1. Continue current antibiotics pending results of repeat sputum culture. 2. Check immunoglobulin levels when these become available. 3. Continue Clinimix as a nutrition bridge. 4. Continue deep vein thrombosis. 5. Encourage patient to discontinue tobacco use. 6. Transition of patients to Dr. Rivas's service for issues outlined above, TIME SPENT IN CRITICAL CARE MANAGEMENT: 30+ minutes. cc: Indra Bowens MD
[2018-10-14] MEDS: LOVENOX SUBQ SCH (15:56)
[2018-10-15] MEDS: HUMALOG SUBQ SCH ×6 (00:31→19:43)
[2018-10-15] MEDS: DIPRIVAN 1% 1,000 MG/100 ML BOTTLE IV SCH ×4 (00:41→08:19)
[2018-10-15] MEDS: MERREM 1 GM in NS 50 ML IV SCH ×3 (03:34→19:43)
[2018-10-15] MEDS: DUONEB (A & A) INH SCH ×6 (03:35→23:48)
[2018-10-15 04:35] LABS: ALLEN TEST YES; BE 5.8 mmoll (-3.0-3.0); BLOOD TYPE ARTERIAL; HCO3-(ACT) 29.5 mmoll (20.0-26.0); METHB 0.8 % (0.0-1.5); O2(CT) 14.7 mL/dL (15.0-23.0); O2HB 96.8 % (95.0-99.0); PCO2(98.6) 40 mmHg (35-45); PO2(98.6) 136 mmHg (60-100); SAMPLE BLOOD; SAO2 98.7 % (95.0-100.0); SRATE 8 BPM; THB 10.6 g/dL (11.5-17.4); TVOL 600 mL; pH(98.6) 7.48 (7.35-7.45)
[2018-10-15 04:37] LABS: MODALITY VENTILATOR
[2018-10-15 05:37] LABS: AGAP 11; ALBUMIN 3.3 g/dL (3.5-5.0); ALKALINE PHOSPHATASE 48 U/L (32-104); BUN 49 mg/dL (8-22); CALCIUM 9.2 mg/dL (8.8-10.2); CHLORIDE 99 mmol/L (98-107); COSMO 287; CREATININE 0.7 mg/dL (0.5-0.9); ESTIMATED GFR > 60; GLUCOSE 132 mg/dL (70-104); GOT 13 U/L (10-30); GPT 10 U/L (10-36); POTASSIUM 5.4 mmol/L (3.5-5.1); SODIUM 136 mmol/L (136-145); TCO2 26 mmol/L (25-35); TOTAL BILIRUBIN 0.23 mg/dL (0.20-1.00); TOTAL PROTEIN 6.7 g/dL (6.3-8.3)
[2018-10-15] MEDS: ATIVAN IV SCH ×2 (05:50→11:59)
[2018-10-15 06:08] LABS: HEMATOCRIT 34.4 % (37.0-47.0); HEMOGLOBIN 10.8 g/dL (12.0-16.0); MCH 26.7 PG (27-31); MCHC 31.4 g/dL (33-37); MCV 85.1 FL (81-99); MPV 12.3 FL (7.4-10.4); RBC 4.04 XMIL (4.2-5.4); RDW 16.6 % (11.5-14.5); WBC 5.4 X1000 (4.8-10.8)
[2018-10-15] MEDS: SOLU-MEDROL IV SCH ×3 (06:30→22:32)
--- NOTE | 2018-10-15 07:15 | Diag Imaging Result Doc PS360 ---
EXAM: CHEST-PORTABLE 10/15/2018 HISTORY: dyspnea TECHNIQUE: AP portable at 0526 COMMENT: There is an endotracheal tube with its tip at thoracic inlet and a right internal jugular central venous catheter with its tip in the right atrium. Compared to 10/14/2018 there has been some improvement in the alveolar opacity in the lower lobe. The left lower lobe is more opacified and the hemidiaphragm more obscured on the left. IMPRESSION: Improved pulmonary edema versus pneumonia on the right and worsened on the left. Electronically signed by Rubén Leahy 10/15/2018 7:12 AM
--- NOTE | 2018-10-15 09:24 | PROGRESS NOTE ---
DATE: 10/15/2018 SUBJECTIVE: Ms. Gregory looks comfortable. Her daughter was at the bedside. OBJECTIVE: She remains afebrile. Temperature 97.3 degrees, pulse 70, respirations 13, and blood pressure 166/78. Pupils are equal and round. Lungs are clear in all lung acosta. Cardiovascular exam with regular rate without murmur or S3. Abdomen is soft. Skin is warm and dry. LABORATORY AND DIAGNOSTIC: Urine output 3300 mL. Blood sugar 139, 123, 155. Chest x-ray improved pulmonary edema versus pneumonia on the right worse than on the left. ASSESSMENT AND PLAN: 1. We can continue to try to wean from the ventilator. Severe COPD. Dr. Rivas in the process of trying to wean. Bilateral pneumonia, COPD with exacerbation, acute hypoxemic and acute hypercapnic respiratory failure. She has failed previous weaning trials. 2. Anxiety disorder. 3. Ongoing tobacco use. 4. Continue current medications. cc: Kirk Cintron MD
[2018-10-15] MEDS: PRECEDEX 200 MICROGM in NS 48 ML IV SCH ×2 (10:03→16:36)
[2018-10-15 11:26] LABS: ALLEN TEST YES; BE 4.1 mmoll (-3.0-3.0); BLOOD TYPE ARTERIAL; HCO3-(ACT) 28.1 mmoll (20.0-26.0); METHB 1.1 % (0.0-1.5); MODALITY VENTILATOR; O2(CT) 15.4 mL/dL (15.0-23.0); O2HB 94.9 % (95.0-99.0); PCO2(98.6) 45 mmHg (35-45); PO2(98.6) 80 mmHg (60-100); SAMPLE BLOOD; SAO2 97.5 % (95.0-100.0); THB 11.5 g/dL (11.5-17.4); pH(98.6) 7.42 (7.35-7.45)
[2018-10-15] MEDS: CLINIMIX E 4.25%-5% SOLUTION 1,000 ML IV SCH (11:58)
[2018-10-15] MEDS: PROTONIX IV SCH (11:58)
[2018-10-15] MEDS: LOVENOX SUBQ SCH (15:00)
[2018-10-15] MEDS: VANCOMYCIN 1,500 MG in NS 250 ML IV SCH (17:48)
[2018-10-15] MEDS: MORPHINE IV PRN (21:14)
[2018-10-16] MEDS: HUMALOG SUBQ SCH ×7 (00:23→23:19)
[2018-10-16] MEDS: GEODON IM PRN (00:59)
[2018-10-16] MEDS ORDERED: LOPRESSOR IV ONE (01:29)
[2018-10-16] MEDS ORDERED: NS 250 ML IV ONE (01:30)
[2018-10-16] MEDS: PRECEDEX 200 MICROGM in NS 48 ML IV SCH (02:01)
[2018-10-16] MEDS: MERREM 1 GM in NS 50 ML IV SCH ×3 (03:29→19:49)
[2018-10-16] MEDS: CLINIMIX E 4.25%-5% SOLUTION 1,000 ML IV SCH (03:30)
[2018-10-16] MEDS: DUONEB (A & A) INH SCH ×6 (03:43→23:25)
[2018-10-16 05:35] LABS: ALLEN TEST YES; BE 0.5 mmoll (-3.0-3.0); BLOOD TYPE ARTERIAL; HCO3-(ACT) 25.3 mmoll (20.0-26.0); METHB 1.2 % (0.0-1.5); O2HB 96.5 % (95.0-99.0); PO2(98.6) 172 mmHg (60-100); SAMPLE BLOOD; SAO2 99.1 % (95.0-100.0); THB 11.5 g/dL (11.5-17.4); pH(98.6) 7.32 (7.35-7.45)
[2018-10-16 05:36] LABS: HEMATOCRIT 35.8 % (37.0-47.0); MCHC 30.7 g/dL (33-37); MCV 87.7 FL (81-99); MPV 13.1 FL (7.4-10.4); RBC 4.08 XMIL (4.2-5.4); RDW 16.4 % (11.5-14.5); WBC 10.86 X1000 (4.8-10.8)
[2018-10-16 05:36] LABS: MODALITY BI PAP; PCO2(98.6) 53 mmHg (35-45)
[2018-10-16 06:08] LABS: POTASSIUM 5.9 mmol/L (3.5-5.1)
[2018-10-16 06:19] LABS: AGAP 8; ALBUMIN 3.3 g/dL (3.5-5.0); ALKALINE PHOSPHATASE 51 U/L (32-104); BUN 57 mg/dL (8-22); CALCIUM 8.9 mg/dL (8.8-10.2); CHLORIDE 105 mmol/L (98-107); COSMO 294; CREATININE 0.7 mg/dL (0.5-0.9); ESTIMATED GFR > 60; GLUCOSE 143 mg/dL (70-104); GOT 29 U/L (10-30); GPT 24 U/L (10-36); SODIUM 138 mmol/L (136-145); TCO2 25 mmol/L (25-35); TOTAL BILIRUBIN 0.33 mg/dL (0.20-1.00); TOTAL PROTEIN 6.5 g/dL (6.3-8.3)
[2018-10-16] MEDS: SOLU-MEDROL IV SCH ×3 (06:29→23:17)
--- NOTE | 2018-10-16 07:36 | Diag Imaging Result Doc PS360 ---
EXAM: CHEST-PORTABLE INDICATION: dyspnea TECHNIQUE: One view COMPARISON: 10/15/2018 FINDINGS: Right central line is in stable position. There has been interval extubation. Bibasilar consolidations are essentially stable. However, there is now vague groundglass opacity in the mid and upper lung zones as well. Cardiac silhouette is stable. IMPRESSION: Interval worsening of pulmonary edema +/- pneumonia. Electronically signed by Jose Escoto 10/16/2018 7:34 AM
[2018-10-16] MEDS ORDERED: LASIX IV ONE (08:24)
[2018-10-16] MEDS: PROTONIX IV SCH (11:29)
[2018-10-16] MEDS: LOVENOX SUBQ SCH (14:53)
--- NOTE | 2018-10-16 17:09 | PROGRESS NOTE ---
DATE: 10/16/2018 SUBJECTIVE: Ms. Gregory is extubated. She is awake. She does have a good deal of anxiety, but breathing comfortably. OBJECTIVE: Vital Signs: Temperature 98.5 degrees, pulse 96, respirations 20, blood pressure 113/65. HEENT: Pupils are equal and round. Lungs: Clear in all lung acosta. Cardiovascular: Regular rhythm and rate without murmur or S3. Abdomen: Soft. Skin is warm and dry. Urine Output: 4400 mL. ASSESSMENT AND PLAN: 1. She has been extubated, air exchange doing much better. Severe chronic obstructive pulmonary disease. Continue to try and maximize her air flow, gas exchange. 2. Anxiety disorder, aware. I want to be real careful with any respiratory depressants. 3. History of tobacco use. Continue nicotine patch. 4. Nutrition. Encourage oral intake. cc: Kirk Cintron MD
[2018-10-16] MEDS: VANCOMYCIN 1,500 MG in NS 250 ML IV SCH (18:16)
[2018-10-16] MEDS: ZOFRAN IV PRN (21:32)
[2018-10-17] MEDS: MERREM 1 GM in NS 50 ML IV SCH ×3 (03:29→21:24)
[2018-10-17] MEDS: HUMALOG SUBQ SCH ×6 (03:32→23:39)
[2018-10-17] MEDS: DUONEB (A & A) INH SCH ×6 (03:41→23:50)
[2018-10-17 05:32] LABS: HEMATOCRIT 36.3 % (37.0-47.0); HEMOGLOBIN 11.5 g/dL (12.0-16.0); MCH 27.3 PG (27-31); MCHC 31.7 g/dL (33-37); MCV 86.2 FL (81-99); RBC 4.21 XMIL (4.2-5.4); RDW 16.8 % (11.5-14.5); WBC 15.16 X1000 (4.8-10.8)
[2018-10-17 05:42] LABS: ALLEN TEST YES; BE 6.7 mmoll (-3.0-3.0); BLOOD TYPE ARTERIAL; HCO3-(ACT) 30.1 mmoll (20.0-26.0); METHB 1.1 % (0.0-1.5); O2(CT) 16.7 mL/dL (15.0-23.0); O2HB 96.4 % (95.0-99.0); PCO2(98.6) 39 mmHg (35-45); PO2(98.6) 109 mmHg (60-100); SAMPLE BLOOD; SAO2 99.5 % (95.0-100.0); THB 12.2 g/dL (11.5-17.4)
[2018-10-17 05:43] LABS: MODALITY CANNULA
[2018-10-17 06:03] LABS: AGAP 11; ALBUMIN 3.5 g/dL (3.5-5.0); ALKALINE PHOSPHATASE 59 U/L (32-104); BUN 48 mg/dL (8-22); CALCIUM 8.5 mg/dL (8.8-10.2); CHLORIDE 102 mmol/L (98-107); COSMO 295; CREATININE 0.8 mg/dL (0.5-0.9); ESTIMATED GFR > 60; GLUCOSE 116 mg/dL (70-104); GOT 39 U/L (10-30); GPT 67 U/L (10-36); POTASSIUM 5.3 mmol/L (3.5-5.1); SODIUM 141 mmol/L (136-145); TCO2 28 mmol/L (25-35); TOTAL BILIRUBIN 0.59 mg/dL (0.20-1.00); TOTAL PROTEIN 7.1 g/dL (6.3-8.3)
[2018-10-17] MEDS: SOLU-MEDROL IV SCH ×4 (06:30→23:04)
--- NOTE | 2018-10-17 07:07 | Diag Imaging Result Doc PS360 ---
EXAM: CHEST-PORTABLE 10/17/2018 HISTORY: dyspnea TECHNIQUE: AP portable at 0603 COMMENT: Compared to 10/16/2018 there is improvement in the pulmonary edema which was present previously. There is a right internal jugular central venous catheter with its tip in the right atrium. IMPRESSION: Improved pulmonary edema. Electronically signed by Rubén Leahy 10/17/2018 7:05 AM
--- NOTE | 2018-10-17 09:40 | PROGRESS NOTE ---
DATE: 10/17/2018 SUBJECTIVE: Ms. Gregory is awake and alert, still off the ventilator, wanting to know if she can move to the floor. OBJECTIVE: Vital Signs: Temperature 98.8, pulse 88, respirations 18, blood pressure 147/84. Eyes: Pupils are equal and round. Lungs: Clear in all lung acosta. Cardiovascular exam: Regular rhythm and rate without murmur or S3. Abdomen: Soft. Skin: Warm and dry. : Urine output 4100 mL. X-RAYS: Chest x-ray: Improved pulmonary edema. ASSESSMENT AND PLAN: 1. She has been extubated and doing well. Severe chronic obstructive pulmonary disease. Continue and try to maximize her air flow and gas exchange. 2. Anxiety disorder. Have been working hard to educate the family and patient to stay away from respiratory depressants. 3. History of tobacco use. Continue nicotine patch. 4. Nutrition: Encourage oral intake. See if she is ready to move to the floor. See what Respiratory (Dr. Rivas) wants to do. MEDICATIONS: Methylprednisone 40 mg q. 8 hours, meropenem 1 g q. 8 hours, Protonix 40 mg IV q. 24 hours, and vancomycin 1500 mg IV q. 24 hours. cc: Kirk Cintron MD
[2018-10-17] MEDS: PROTONIX IV SCH (12:41)
[2018-10-17] MEDS: LOVENOX SUBQ SCH (14:44)
[2018-10-17] MEDS: VANCOMYCIN 1,500 MG in NS 250 ML IV SCH (18:27)
[2018-10-17] MEDS: ZOFRAN IV PRN (22:22)
[2018-10-18] MEDS: MORPHINE IV PRN (02:13)
[2018-10-18] MEDS: DUONEB (A & A) INH SCH ×6 (03:45→23:45)
[2018-10-18] MEDS: MERREM 1 GM in NS 50 ML IV SCH ×3 (03:48→20:53)
[2018-10-18] MEDS: HUMALOG SUBQ SCH ×6 (05:18→20:49)
[2018-10-18 05:22] LABS: ALLEN TEST YES; BE 4.7 mmoll (-3.0-3.0); BLOOD TYPE ARTERIAL; HCO3-(ACT) 28.6 mmoll (20.0-26.0); METHB 1.3 % (0.0-1.5); O2(CT) 16.1 mL/dL (15.0-23.0); O2HB 96.6 % (95.0-99.0); PCO2(98.6) 37 mmHg (35-45); PO2(98.6) 134 mmHg (60-100); SAMPLE BLOOD; SAO2 99.5 % (95.0-100.0); THB 11.7 g/dL (11.5-17.4); pH(98.6) 7.49 (7.35-7.45)
[2018-10-18 05:27] LABS: MODALITY CANNULA
[2018-10-18 06:29] LABS: HEMATOCRIT 37.1 % (37.0-47.0); HEMOGLOBIN 11.7 g/dL (12.0-16.0); MCHC 31.5 g/dL (33-37); MCV 85.7 FL (81-99); MPV 12.9 FL (7.4-10.4); RBC 4.33 XMIL (4.2-5.4); RDW 16.9 % (11.5-14.5); WBC 13.17 X1000 (4.8-10.8)
[2018-10-18 06:59] LABS: AGAP 13; ALB/GLOB RATIO 1.1; ALBUMIN 3.6 g/dL (3.5-5.0); ALKALINE PHOSPHATASE 56 U/L (32-104); BUN 36 mg/dL (8-22); CALCIUM 9.4 mg/dL (8.8-10.2); CHLORIDE 102 mmol/L (98-107); COSMO 293; CREATININE 0.7 mg/dL (0.5-0.9); ESTIMATED GFR > 60; GLUCOSE 161 mg/dL (70-104); GOT 23 U/L (10-30); GPT 48 U/L (10-36); POTASSIUM 5.5 mmol/L (3.5-5.1); SODIUM 141 mmol/L (136-145); TCO2 26 mmol/L (25-35); TOTAL BILIRUBIN 0.64 mg/dL (0.20-1.00); TOTAL PROTEIN 6.9 g/dL (6.3-8.3)
--- NOTE | 2018-10-18 07:03 | PROGRESS NOTE ---
DATE: 10/18/2018 SUBJECTIVE: She is doing much better. Feels much better. OBJECTIVE: Temperature 98.4 degrees, pulse 97, respirations 14, blood pressure 156/79. Pupils are equal and round. Lungs are clear in all lung acosta. Cardiovascular Examination: Regular rhythm and rate without murmur or S3. Abdomen is soft. Skin is warm and dry. Urine output is 3100 mL. ASSESSMENT AND PLAN: 1. She has been extubated, doing well. Severe chronic obstructive pulmonary disease but has been able to stay off the ventilator, and has improved her air and gas exchange. 2. Anxiety disorder. She is asking to try Lyrica. I think that we ought to wait on that a little bit. I do reaffirm the need to stay off of any kind respiratory depressants. 3. History of tobacco use. 4. Nutrition. She seems to be eating better. I think we can decrease her methylprednisone down to 20 mg intravenous every 8 hours. Possibly go to the floor today. Her chest x-ray from yesterday, improved pulmonary edema. cc: Kirk Cintron MD
--- NOTE | 2018-10-18 07:29 | Diag Imaging Result Doc PS360 ---
EXAM: CHEST-PORTABLE 10/18/2018 HISTORY: dyspnea TECHNIQUE: AP portable at 0524 COMMENT: There is a right internal jugular central venous catheter with its tip in the right atrium. There is increased interstitial markings with Lolita B lines in both lung bases. This appears slightly worse than on the previous study of 10/17/2018. It is better than on 10/16/2018 however. IMPRESSION: Pulmonary edema. Electronically signed by Rubén Leahy 10/18/2018 7:27 AM
[2018-10-18] MEDS: SOLU-MEDROL IV SCH ×4 (07:52→23:25)
[2018-10-18] MEDS: PROTONIX IV SCH (11:58)
[2018-10-18] MEDS: LOVENOX SUBQ SCH ×2 (13:19→15:06)
[2018-10-18] MEDS: VANCOMYCIN 1,500 MG in NS 250 ML IV SCH (17:45)
[2018-10-19] MEDS: HUMALOG SUBQ SCH ×6 (03:16→21:50)
[2018-10-19] MEDS: MERREM 1 GM in NS 50 ML IV SCH ×2 (04:57→12:34)
[2018-10-19] MEDS: DUONEB (A & A) INH SCH ×6 (06:10→23:25)
[2018-10-19] MEDS: SOLU-MEDROL IV SCH ×3 (06:29→21:49)
--- NOTE | 2018-10-19 06:36 | Diag Imaging Result Doc PS360 ---
EXAM: CHEST-PORTABLE HISTORY: dyspnea TECHNIQUE: Portable chest single view COMPARISON: 10/18/2018 FINDINGS: The lungs are well expanded. The heart is not enlarged. No change in the right jugular line. Mild vascular distention. There are no infiltrates. No effusion identified. IMPRESSION: Stable exam Electronically signed by Armaan Baldwin 10/19/2018 6:34 AM
[2018-10-19 07:40] LABS: HEMOGLOBIN 13.3 g/dL (12.0-16.0); MCH 26.9 PG (27-31); MCHC 31.7 g/dL (33-37); MCV 84.8 FL (81-99); MPV 11.9 FL (7.4-10.4); RBC 4.95 XMIL (4.2-5.4); RDW 16.5 % (11.5-14.5); WBC 13.22 X1000 (4.8-10.8)
[2018-10-19 07:50] LABS: AGAP 10; ALB/GLOB RATIO 0.9; ALBUMIN 3.7 g/dL (3.5-5.0); ALKALINE PHOSPHATASE 61 U/L (32-104); BUN 26 mg/dL (8-22); CALCIUM 9.6 mg/dL (8.8-10.2); CHLORIDE 101 mmol/L (98-107); COSMO 277; CREATININE 0.7 mg/dL (0.5-0.9); ESTIMATED GFR > 60; GLUCOSE 107 mg/dL (70-104); GOT 16 U/L (10-30); GPT 36 U/L (10-36); SODIUM 136 mmol/L (136-145); TCO2 25 mmol/L (25-35); TOTAL BILIRUBIN 0.65 mg/dL (0.20-1.00); TOTAL PROTEIN 7.6 g/dL (6.3-8.3)
[2018-10-19] MEDS: TYLENOL PO PRN ×2 (10:55→21:46)
[2018-10-19] MEDS: SODIUM CHLORIDE 0.9% INJ SCH (12:35)
[2018-10-19] MEDS: PROTONIX IV SCH (12:35)
[2018-10-19] MEDS: VANCOMYCIN 1,500 MG in NS 250 ML IV SCH (17:40)
[2018-10-19] MEDS: LOVENOX SUBQ SCH (17:46)
--- NOTE | 2018-10-19 18:54 | PROGRESS NOTE ---
DATE: 10/19/2018 SUBJECTIVE: Ms. Gregory is wanting to go home. She has a she wants to go to. She just got moved to the unit. She is breathing better and more comfortable. She is on a high degree of supplemental O2 still. OBJECTIVE: Vital Signs: Temperature 98.6 degrees, pulse 80, respirations 16, blood pressure 150/64. HEENT: Pupils are equal and round. Lungs: Clear in all lung acosta. Cardiovascular: Regular rhythm and rate without murmur or S3. LABORATORY STUDIES: Urine output is 4000 mL. Blood sugar 138, 111, 81. Chest x-ray, stable exam. Lungs are well expanded. Heart is not enlarged. No change in the right jugular line. Mild vascular distention. No infiltrates. ASSESSMENT AND PLAN: 1. Severe chronic obstructive pulmonary disease. She is improving. Air and gas exchange improving. 2. Anxiety disorder and right now seems to be doing well and being very careful with medications. 3. History of tobacco use. 4. Nutrition. She seems to be eating pretty well. CURRENT MEDICATIONS: She is getting meropenem 1 g IV q.8 h. She is getting vancomycin 1500 mg IV q.24 h., methylprednisone 20 mg IV q.8 h. and I think that we can probably stop her antibiotics. We were treating her for pneumonia. The x-ray has improved and no sign of infiltrate, so I will stop her antibiotics. cc: Kirk Cintron MD
[2018-10-19] MEDS: ZOFRAN IV PRN (23:35)
[2018-10-20] MEDS: HUMALOG SUBQ SCH ×3 (02:30→10:37)
[2018-10-20] MEDS: DUONEB (A & A) INH SCH ×3 (04:09→11:50)
[2018-10-20] MEDS: SOLU-MEDROL IV SCH (07:09)
--- NOTE | 2018-10-20 07:28 | Diag Imaging Result Doc PS360 ---
CHEST-PORTABLE - 10/20/2018 INDICATION: dyspnea COMPARISON: 10/19/2018 FINDINGS: Stable right central line in good position. The lungs are clear. Heart size is normal. No pneumothorax or pleural effusion. IMPRESSION: Negative exam. Electronically signed by Wan Eddy 10/20/2018 7:26 AM
[2018-10-20 11:51] VITALS: BP 149/76
--- NOTE | 2018-10-20 13:00 | DISCHARGE SUMMARY ---
ADMISSION DATE: 10/09/2018 DISCHARGE DATE: 10/20/2018 CONSULTATIONS: Dr. Indra Bowens with Pulmonology. PERTINENT PROCEDURES: 1. Initial chest x-ray, the ET tube in good position. There are bilateral infiltrates. 2. Chest CT, bilateral basilar infiltrates and atelectasis with small pleural effusions. There is mild pulmonary edema as well. 3. Final chest x-ray is a negative exam. DISCHARGE DIAGNOSES: 1. Bilateral pneumonia. The patient has been treated with IV antibiotics, bronchodilators, aggressive pulmonary toilet, mechanical ventilation and supplemental O2. She will be discharged home on Ventolin inhaler and Spiriva. 2. Chronic obstructive pulmonary disease exacerbation. The patient was treated with bronchodilators and aggressive pulmonary toilet. 3. Acute on chronic hypercapnic respiratory failure. The patient did require intubation from the time she was picked up by EMS on 10/09/2018 until 10/14 to 10/15/2018. 4. Acute hypoxemic respiratory failure requiring intubation followed by Pulmonology. 5. Altered mental status at home. 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 6. Ongoing tobacco abuse. Dr. Traylor as well as Dr. Bowens has spoke with the patient and the family, and had very long discussions about tobacco cessation. 7. Lactic acidosis improved. HOSPITAL COURSE: Briefly, Ms. Gregory is a 57-year-old female who is well known to our service for multiple admissions for chronic obstructive pulmonary disease exacerbations with chronic hypoxemic respiratory failure, ongoing tobacco use, who was last evaluated for respiratory failure requiring mechanical ventilation in August. On 10/09/2018, EMS was called to her resident's. She was immediately intubated upon their arrival, and brought to the ED where she was stabilized and transferred to the ICU where she was found to have a bilateral pneumonia. She was treated per sepsis protocol on broad-spectrum antibiotics followed by Pulmonology. She was on mechanical ventilation from the time of her admission to around 10/14 to 10/15/2018 where she was extubated to supplemental O2. She has not had to be reintubated. She was able to move out of the ICU to the regular floor. She was able to come off her antibiotics. Her chest x-ray is now clear. She was continued on bronchodilators, and weaned down on her steroids. She was re- initiated back on her home medications. She continues to complain about anxiety. Again, she has been educated to discuss all psychotropic medications with her PCP before restarting them at home. VITAL SIGNS: At time of discharge, temperature is 98.1 degrees, heart rate 81, respirations 18, blood pressure 164/80, and O2 is 99% on 2 L nasal cannula. DISCHARGE DIET: Diabetic. DISCHARGE MEDICATIONS: 1. Coreg 12.5 mg p.o. at bedtime. 2. Imdur 30 mg p.o. at bedtime. 3. Calcitriol 0.25 mcg p.o. daily. 4. Coumadin 2.5 mg p.o., Friday, Friday, Friday, , Friday. 5. Enalapril 10 mg p.o. daily. 6. Plavix 75 mg p.o. daily. 7. Potassium 20 mEq p.o. daily. 8. Protonix 40 mg p.o. daily. 9. Spironolactone 25 mg p.o. daily. 10. Coumadin 5 mg p.o. Friday, Friday, Friday. 11. Spiriva 2.5 mcg inhaler daily. 12. Ventolin 2 puffs inhaled q.6 hours p.r.n. FOLLOWUP: Ms. Gregory is being discharged back home with family. She has been educated numerous times on smoking cessation as well as the means to quit. She has also been educated on taking her psychotropic medications as prescribed, and coming off of those medications. We strongly encouraged her to discuss this with her primary care provider. She is not being discharged on any sedating medications that she has had multiple admissions for respiratory failure. She can return to the ED or call 911 for any worsening of symptoms. Dictated by RALPH Meza for Davin Traylor MD cc: MD Indra Larson MD Jyothi Tummala I have seen and examined Ms Gregory today. She is clinically stable for discharge. I have reviewed and reconciled her home medications. Ms Gregory is been discharged home in stable condition. I agree with the above discharge summary. Time spent fro discharge 34 minutes. MTDD
== END 2018-10-20 13:26 | disposition home or self-care (01) | DRG 870 ==
LOC: ED 05:11 → ICU 10:48 → SUATTDRO 10:48 → 3N 10-18 23:07
PROVIDERS: ATTEND Internal Medicine
CPT/HCPCS: 71010; 71045; 71250; 80053; 80101; 80202; 80301; 80307; 80324; 80345; 80346; 80353; 80358; 80361; 80365; 81001; 82784; 82805; 82948; 83605; 83735; 83880; 83992; 84100; 84484; 85025; 85027; 85610; 87040; 87070; 87205; 89220; 93005; 94003; 94150; 94640; 94660; 94761; 96365; 96366; 96367; 96368; 96372; 96375; 99285; A9270; C9113; G0431; G0434; G0479; G0480; J1630; J1650; J1815; J1940; J2060; J2185; J2250; J2270; J2405; J2543; J2920; J2930; J3010; J3370; J3475; J3486; J7030; J7040; J7050; S0164; XXXXX

== ENCOUNTER 2018-12-11 04:35 | Inpatient (IN) ==
[2018-12-11] MEDS ORDERED: DUONEB (A & A) INH ONE (04:41)
[2018-12-11] MEDS ORDERED: SOLU-MEDROL IV ONE (04:41)
[2018-12-11 05:02] LABS: BASO# 0.03 X1000 (0.0-0.2); BASO% 0.3 % (0.0-0.8); EOS# 0.06 X1000 (0.0-0.7); EOS% 0.6 % (0.0-10.0); HEMATOCRIT 38.9 % (37.0-47.0); HEMOGLOBIN 12.1 g/dL (12.0-16.0); IMM GRAN# 0.02 X1000 (0.0-0.04); IMM GRAN% 0.2 % (0.0-0.5); LYMPH# 1.96 X1000 (1.2-3.4); LYMPH% 18.8 % (20.5-51.1); MCH 26.7 PG (27-31); MCHC 31.1 g/dL (33-37); MCV 85.7 FL (81-99); MONO# 0.68 X1000 (0.11-0.59); MONO% 6.5 % (1.7-9.3); MPV 12.2 FL (7.4-10.4); NEUT# 7.68 X1000 (1.4-6.5); NEUT% 73.6 % (42.2-75.2); PLT 199 X1000 (130-400); RBC 4.54 XMIL (4.2-5.4); RDW 16.8 % (11.5-14.5); WBC 10.43 X1000 (4.8-10.8)
[2018-12-11 05:31] LABS: ALBUMIN 3.7 g/dL (3.5-5.0); CALCIUM 8.1 mg/dL (8.8-10.2); POTASSIUM 4.3 mmol/L (3.5-5.1); TOTAL BILIRUBIN 0.2 mg/dL (0.20-1.00); TOTAL PROTEIN 7.1 g/dL (6.3-8.3)
--- NOTE | 2018-12-11 05:43 | PROVIDER DOCUMENTATION ---
HPI-Respiratory General - General Chief Complaint: Shortness of Breath Stated Complaint: SOB Time Seen by Provider: 12/11/18 04:36 Source: patient Allergies/Adverse Reactions: Patient Allergies Allergy/AdvReac Type Severity Reaction Status Date / Time levofloxacin [From Levaquin] Allergy Intermediate RASH Verified 07/07/18 07:44 NSAIDS (Non-Steroidal Allergy Unknown Unknown Verified 07/07/18 07:44 Anti-Inflamma Home Medications: Home Medication List Medication Instructions Recorded Confirmed Last Taken Type Isosorbide Mononitrate [Imdur] 30 mg PO QHS 03/11/14 12/11/18 07/06/18 History Enalapril Maleate 10 mg PO DAILY 11/11/17 12/11/18 07/06/18 History Clopidogrel Bisulfate [Plavix] 75 mg PO DAILY 03/22/18 12/11/18 07/06/18 History Carvedilol [Coreg] 12.5 mg PO QHS 07/18/18 12/11/18 Unknown History Pantoprazole [Protonix] 40 mg PO DAILY 10/09/18 12/11/18 Unknown History Warfarin Sodium [Coumadin] 2.5 mg PO SUMOTUTHSA 10/09/18 12/11/18 Unknown History Albuterol Sulfate Inhaler 2 puff INH Q6H PRN PRN #1 inhaler 10/20/18 12/11/18 Unknown Rx [Ventolin Hfa] Atorvastatin Calcium 80 mg PO DAILY 12/11/18 12/11/18 Unknown History Clonazepam 0.5 mg PO TID 12/11/18 12/11/18 Unknown History Furosemide 80 mg PO DAILY 12/11/18 12/11/18 Unknown History Hydrocodone/Acetaminophen [[place] 1 tab PO PRN PRN 12/11/18 12/11/18 Unknown History 5-325 Tablet] Methylprednisolone [Medrol Dosepak] 4 mg PO DAILY 12/11/18 12/11/18 Unknown History - History of Present Illness-Resp Nature of Presenting Problem: Patient notes a history of COPD. EMS notes O2 sat in the 80s when they arrived at patient's home. patient arrived to the ED on BIPAP and notes that she is breathing better. Severity in ED: reports: moderate Onset/Duration: reports: 2 days ago Timing: reports: still present Context: reports: other (unknown) Exposure: reports: unknown cause Cough Quality/Degree: reports: moderate, dry cough Episode Frequency: chronic episodes Current Respiratory Medication Therapy: Initiated albuterol/atrovent inhale, Initiated A/A nebulizer Modifying Factors: improves with: exertion, coughing Associated Symptoms: reports: chest pain/soreness, cough, shortness of breath, wheezing Similar Symptoms Previously?: Yes Review of Systems - Adult - REVIEW OF SYSTEMS - ADULT Constitutional: reports: no symptoms reported Eyes: reports: no symptoms reported Ears, Nose, Mouth & Throat: reports: no symptoms reported Cardiovascular: reports: no symptoms reported Respiratory: reports: no symptoms reported Gastrointestinal: reports: no symptoms reported Genitourinary: reports: no symptoms reported Musculoskeletal: reports: no symptoms reported Integumentary: reports: no symptoms reported Neurological: reports: no symptoms reported Psychiatric: reports: no symptoms reported Endocrine: reports: no symptoms reported Hematologic/Lymphatic: reports: no symptoms reported Allergic/Immunologic: reports: no symptoms reported All Other Systems: Reviewed and Negative Past History - Adult - PAST MEDICAL HISTORY-ADULT Review of Records: reports: Old Records Reviewed, Nursing Assessment Review, Medications Reviewed, Social history reviewed & non-contributory. Major Childhood Illnesses: reports: denies history Cardiovascular: reports: CAD, CHF, hyperlipidemia, [place] Respiratory: reports: COPD, pneumonia (was treated last hospitalization), other (hx of respiratory failure, hypoxia, hypercarbia) Gastrointestinal: reports: GERD Obstetrical/Gynecological: reports: denies history Genitourinary: reports: denies history Musculoskeletal: reports: chronic pain Neurological: reports: CVA Psychiatric: reports: anxiety Endocrine/Immune: reports: denies history Other Conditions: reports: denies history - PRIOR SURGERIES/PROCEDURES Surgical/Procedure History: reports: other, appendectomy, cholecystectomy - PRIOR HOSPITALIZATIONS Prior Hospitalizations: reports: for similar symptoms - IMMUNIZATION STATUS Childhood Immunizations: See Nurse Assessment Flu Vaccine: See Nurse Assessment - FAMILY HISTORY Family History: reviewed, not pertinent Physical Exam-General - PHYSICAL EXAM-ADULT Initial Vital Signs Reviewed: Yes - CONSTITUTIONAL General Appearance: moderate distress - HEAD, EARS, NOSE, MOUTH & THROAT HENMT: normocephalic/atraumatic, moist mucous membranes, normal ENT inspection - NECK Neck: non-tender, full range of motion - RESPIRATORY Respiratory: chest non-tender, respiratory distress, accessory muscle use, wheezing, prolonged expiration - CARDIOVASCULAR Cardiovascular: normal peripheral pulses, regular rate, rhythm, no edema, no gallop, no JVD, no murmur - GASTROINTESTINAL (ABDOMEN) Abdominal Exam: normal bowel sounds, non tender, soft - LYMPHATIC Lymphatic: no adenopathy - MUSCULOSKELETAL Back Exam: normal inspection Progress - PLAN OF CARE/RESULTS Progress/Plan/Lab Results: Vital Signs - 8 hr 12/11/18 04:37 12/11/18 04:50 12/11/18 05:26 Temperature 98 F Pulse Rate 97 H 95 H 81 Respiratory Rate 26 H 27 H 18 Blood Pressure 149/98 131/71 O2 Sat by Pulse Oximetry 94 L 97 99 12/11/18 06:27 Temperature Pulse Rate 72 Respiratory Rate 16 Blood Pressure 119/76 O2 Sat by Pulse Oximetry 100 Laboratory Results - last 24 hr 12/11/18 12/11/18 12/11/18 04:55 04:55 04:55 WBC 10.43 RBC 4.54 Hgb 12.1 Hct 38.9 MCV 85.7 MCH 26.7 L MCHC 31.1 L RDW Std Deviation 16.8 H Plt Count 199 MPV 12.2 H Immature Gran % (Auto) 0.2 Neut % (Auto) 73.6 Lymph % (Auto) 18.8 L [place] % (Auto) 6.5 Eos % (Auto) 0.6 Baso % (Auto) 0.3 Immature Gran # (Auto) 0.02 Neut # (Auto) 7.68 H Lymph # (Auto) 1.96 [place] # (Auto) 0.68 H Eos # (Auto) 0.06 Baso # (Auto) 0.03 Sodium 142 Potassium 4.3 Chloride 100 Carbon Dioxide 28 Anion Gap 14 BUN 23 H Creatinine 1.0 H Estimated GFR/1.73 m2 57 BUN/Creatinine Ratio 23 Glucose 199 H Calculated Osmolality 292 Calcium 8.1 L Total Bilirubin 0.20 AST 39 H ALT 17 Alkaline Phosphatase 80 Creatine Kinase 55 Troponin T [id number] Pept 1678 H Total Protein 7.1 Albumin 3.7 Globulin 3.0 Albumin/Globulin Ratio 1.0 12/11/18 04:55 WBC RBC Hgb Hct MCV MCH MCHC RDW Std Deviation Plt Count MPV Immature Gran % (Auto) Neut % (Auto) Lymph % (Auto) [place] % (Auto) Eos % (Auto) Baso % (Auto) Immature Gran # (Auto) Neut # (Auto) Lymph # (Auto) [place] # (Auto) Eos # (Auto) Baso # (Auto) Sodium Potassium Chloride Carbon Dioxide Anion Gap BUN Creatinine Estimated GFR/1.73 m2 BUN/Creatinine Ratio Glucose Calculated Osmolality Calcium Total Bilirubin AST ALT Alkaline Phosphatase Creatine Kinase Troponin T < 0.010 [id number] Pept Total Protein Albumin Globulin Albumin/Globulin Ratio Orders Category Date Time Status CHEST-1 VIEW [RAD] Stat Exams 12/11/18 04:37 Taken BLOOD CULTURE [BLDCUL] Stat Lab 12/11/18 06:00 Ordered CBC WITH ELECTRONIC DIFF [HEME] Stat Lab 12/11/18 04:55 Completed CK PROFILE [SP CHEM] Stat Lab 12/11/18 04:55 Completed COMPREHENSIVE METABOLIC PANEL [CHEM] Stat Lab 12/11/18 04:55 Completed PRO B-NATRIURETIC PEPTIDE Stat Lab 12/11/18 04:55 Completed TROPONIN T Stat Lab 12/11/18 04:55 Completed Albuterol 2.5MG/Ipratrop 0.5MG [Duoneb (A & A)] Med 12/11/18 04:41 Discontinued 9 ml INH NOW ONE Methylprednisolone Sod Succ [Solu-Medrol] Med 12/11/18 04:41 Discontinued 125 mg IV NOW ONE Piperacillin/Tazobactam [Zosyn] 4.5 gm Med 12/11/18 05:48 Active 0.9% Sodium Chloride Inj [Ns] 100 ml IV NOW Aerosol Treatments Routine Oth 12/11/18 04:41 Completed Aerosol Treatments Stat Oth 12/11/18 04:41 Completed Result Diagrams: 12/11/18 04:55 12/11/18 04:55 - CONSULTS/PCP/HOSPITALIST Notification #1 *Consult/PCP/Hospitalist*: Dr. Rodrigues Time Discussed: 06:35 Consult Disposition: Admit Departure - Departure Date of Disposition Decision: 12/11/18 Time of Disposition Decision: 06:35 DIAGNOSIS: COPD with acute exacerbation Pneumonia Qualifiers: Pneumonia type: due to unspecified organism Laterality: right Lung location: middle lobe of lung Qualified Code(s): J18.1 - Lobar pneumonia, unspecified organism Disposition: ADMITTED INPATIENT 09 Certified Medical Emergency: Emergent Condition: Stable Referrals and Follow-Ups: Maria Luz Ramirez CRNP [Primary Care Provider] - - Critical Care Note This patient required my direct & personal management of CC.: No Attestation - Physician/ MANDO Attestation Patient care was provided by Advanced Practice Provider:: No The physician spent face to face time with patient:: Yes Advanced Practice Provider documentation review:: Supervising physician onsite and consulted in the evaluation and care of this patient. The physician did have a face to face encounter with the patient.
[2018-12-11] MEDS ORDERED: ZOSYN 4.5 GM in NS 100 ML IV ONE (05:48)
--- NOTE | 2018-12-11 06:48 | Diag Imaging Result Doc PS360 ---
CHEST-1 VIEW - 12/11/2018 INDICATION: sob COMPARISON: 10/20/2018 FINDINGS: There are diffuse bilateral interstitial opacities. Heart size is top normal. No pneumothorax or pleural effusion. IMPRESSION: Bilateral nonspecific interstitial opacities. This may represent bone marrow edema, atypical pneumonia, or other unusual pneumonitis such as from inhaled substance. Electronically signed by Wan Eddy 12/11/2018 6:46 AM
[2018-12-11 07:49] LABS: INR 1.26; PROTIME 16.4 Seconds (11.0-16.0)
[2018-12-11 07:50] LABS: PTT 25.9 Seconds (22.3-41.8)
[2018-12-11] MEDS ORDERED: VANCOMYCIN IV PER PHARMACY MISC SCH (09:00)
[2018-12-11] MEDS: DUONEB (A & A) INH SCH ×5 (09:13→22:46)
[2018-12-11] MEDS: ZOSYN 3.375 GM in NS 50 ML IV SCH ×3 (09:21→20:17)
[2018-12-11] MEDS: ZITHROMAX 500 MG/NS 500 MG/250 ML IVPB IV SCH (10:33)
[2018-12-11] MEDS ORDERED: VENTOLIN HFA INH PRN (10:57)
[2018-12-11] MEDS ORDERED: VANCOMYCIN 1,800 MG in NS 250 ML IV ONE (11:00)
--- NOTE | 2018-12-11 11:36 | EKG Report ---
Test Performed on : 12/11/2018 04:38:07 AM Test Reason : ER Blood Pressure : / mmHG Vent. Rate : 097 BPM Atrial Rate : 097 BPM P-R Int : 140 ms QRS Dur : 092 ms QT Int : 376 ms P-R-T Axes : 074 085 049 degrees QTc Int : 477 ms Normal sinus rhythm. Possible Lateral infarct (cited on or before 13-AUG-2018) Cannot rule out Inferior infarct (cited on or before 12-AUG-2018) Abnormal ECG When compared with ECG of 09-OCT-2018 06:33, (Unconfirmed) T wave inversion no longer evident in Anterior leads Unconfirmed Result
--- NOTE | 2018-12-11 11:59 | HISTORY AND PHYSICAL ---
PRIMARY CARE PHYSICIAN: Vale Balderrama. CHIEF COMPLAINT: Shortness of breath. HISTORY OF PRESENTING ILLNESS: This is a 58-year-old female who presents to [facility] ER via EMS and is well known to the hospitalist service. EMS notes that when they arrived to the patient's home she was sating in the 80s. They placed her on CPAP and was then changed over to BiPAP and states that helped her breathe better. She states she had been short of breath for 2 days that progressively worsened with dry cough. Her workup in the ER showed a chest x-ray with bilateral nonspecific interstitial opacities that may represent bone marrow edema, atypical pneumonia or other unusual pneumonitis such as from an inhaled substance. So, she was admitted for further evaluation and treatment. PAST MEDICAL HISTORY: 1. Chronic respiratory failure. 2. Chronic COPD exacerbation. 3. Paroxysmal atrial fibrillation. 4. Diabetes Type 2. 5. Hypomagnesemia. 6. Congestive heart failure with EF of 30-35%. 7. Chronic opioid use. PAST SURGICAL HISTORY: Appendectomy, cholecystectomy, cardiac catheterization and carotid artery surgery. SOCIAL HISTORY: She smokes a pack of cigarettes a day. She denies any alcohol or illicit drug use and lives with family. ALLERGIES: Levaquin and NSAID. HOME MEDICATIONS: 1. Ventolin 2 puffs inhalation q 6 hours p.r.n. 2. Atorvastatin 80 mg p.o. daily. 3. Coreg 12.5 mg p.o. q bedtime. 4. Clonazepam 0.5 mg p.o. t.i.d. 5. Plavix 75 mg p.o. daily. 6. Enalapril 10 mg p.o. daily. 7. Lasix 80 mg p.o. daily. 8. [place] 5 1 p.o. p.r.n. 9. Imdur 30 mg p.o. q bedtime. 10.Medrol Dosepak daily (will be held). 11.Protonix 40 mg p.o. daily. 12.Coumadin 2.5 mg on Friday, Friday, Friday, and Friday. LABORATORY DATA: WBC 10.43, hemoglobin 12.1, hematocrit 38.9, platelets 199,000, PT 16.4, INR 1.26, sodium 142, potassium 4.3, chloride 100, C02 28, BUN 23, creatinine 1, glucose 199. Cardiac enzymes were negative. ProBNP 1678. Plasma lactate 1.3. Chest x-ray showed bilateral nonspecific interstitial opacities that may represent bone marrow edema, atypical pneumonia or other unusual pneumonitis such as from inhaled substances. REVIEW OF SYSTEMS: She denied any fever, chills, blurred vision, dizziness, chest pain. She had a nonproductive cough and shortness of breath that was worth with exertion. She denied any abdominal pain, constipation, diarrhea, burning or hurting with urination. PHYSICAL EXAMINATION: VITAL SIGNS: On arrival she had a pulse of 97, respirations 26, blood pressure 149/98 and was sating 94% on CPAP when she arrived, currently sating 94% on 15% Venturi mask. GENERAL: This is a 58-year-old female lying in the bed, answers questions appropriately. HEENT: Normocephalic and atraumatic. Normal ENT inspection. Oropharynx and nares are clear. Eyes: Pupils are equal, round, and reactive to light and accommodation. Extraocular movements are intact. NECK: Normal inspection. Normal range of motion. LUNGS: With some scattered wheezing and decreased breath sounds bilaterally. Equal lung expansion. Chest wall movement noted. HEART: Regular rate and rhythm. No murmurs, rubs, or gallops. ABDOMEN: Soft, nontender, nondistended. Bowel sounds are present x 4 quadrants. MUSCULOSKELETAL: She has 5 out of 5 strength x 4 extremities. NEUROLOGICAL: Cranial nerves II through XII appear grossly intact. ASSESSMENT: 1. Right middle lobe pneumonia. 2. Acute COPD exacerbation. 3. Acute on chronic hypoxic respiratory failure. 4. History of diabetes Type 2. 5. History of paroxysmal atrial fibrillation. 6. Chronic CHF with EF of 30-35%. 7. Chronic opioid use. PLAN: She was admitted to the medical unit, placed on O2 per protocol and currently is on 15% mini-mask, telemetry. She is on vancomycin per pharmacy protocol, azithromycin 500 IV q 24, Zosyn 3.375 grams IV q 6. We will place on Solu-Medrol 80 mg IV q 8 and wean as she improves. Continue home medications as previously identified. Recheck CBC and BMP in the a.m. Further orders after seen by attending. Dictated by RALPH Bailey for Aaron Aly MD Addendum: Patient seen and examined by myself. Agree with RALPH note. It reflects my assessment and plan. Patient is admitted to hospital for acute respiratory failure secondary to pna. Will start broad spectrum antibiotics and Duoneb q4hr scheduled. Will check also an ABG and will go from there. cc: RALPH aBiley MD [facility]
[2018-12-11] MEDS: LASIX PO SCH (12:00)
[2018-12-11] MEDS: VASOTEC PO SCH (12:00)
[2018-12-11] MEDS: PROTONIX PO SCH (12:01)
[2018-12-11] MEDS: NORCO-5 PO PRN ×2 (12:01→20:15)
[2018-12-11] MEDS: SOLU-MEDROL IV SCH ×2 (12:01→20:16)
[2018-12-11] MEDS: PLAVIX PO SCH (12:01)
[2018-12-11] MEDS: KLONOPIN PO SCH ×2 (13:54→21:41)
[2018-12-11] MEDS ORDERED: COREG PO SCH (21:00)
[2018-12-11] MEDS ORDERED: IMDUR PO SCH (21:00)
[2018-12-11] MEDS ORDERED: LIPITOR PO SCH (21:00)
[2018-12-11] MEDS ORDERED: COUMADIN PO SCH (21:00)
[2018-12-12] MEDS: ZOSYN 3.375 GM in NS 50 ML IV SCH ×2 (02:09→10:29)
[2018-12-12] MEDS: SOLU-MEDROL IV SCH (02:15)
[2018-12-12] MEDS: NORCO-5 PO PRN (04:54)
[2018-12-12] MEDS: KLONOPIN PO SCH (05:50)
[2018-12-12] MEDS: DUONEB (A & A) INH SCH ×2 (07:44→14:07)
[2018-12-12 08:24] LABS: INR 1.72
[2018-12-12 08:28] LABS: HEMATOCRIT 33.3 % (37.0-47.0); HEMOGLOBIN 10.4 g/dL (12.0-16.0); IMM GRAN# 0.01 X1000 (0.0-0.04); IMM GRAN% 0.1 % (0.0-0.5); LYMPH# 0.49 X1000 (1.2-3.4); LYMPH% 5.7 % (20.5-51.1); MCH 26.5 PG (27-31); MCHC 31.2 g/dL (33-37); MCV 84.7 FL (81-99); MONO% 2.3 % (1.7-9.3); MPV 12.4 FL (7.4-10.4); NEUT# 7.86 X1000 (1.4-6.5); NEUT% 91.9 % (42.2-75.2); PLT 196 X1000 (130-400); RBC 3.93 XMIL (4.2-5.4); RDW 16.3 % (11.5-14.5); WBC 8.56 X1000 (4.8-10.8)
[2018-12-12 08:32] LABS: AGAP 14; BUN 29 mg/dL (8-22); CHLORIDE 102 mmol/L (98-107); COSMO 297; CREATININE 0.9 mg/dL (0.5-0.9); ESTIMATED GFR > 60; GLUCOSE 144 mg/dL (70-104); POTASSIUM 3.5 mmol/L (3.5-5.1); SODIUM 145 mmol/L (136-145); TCO2 29 mmol/L (25-35)
[2018-12-12 08:47] LABS: LYMPHS 6 % (21-51); SEGS 94 % (42-75)
[2018-12-12] MEDS: ZITHROMAX 500 MG/NS 500 MG/250 ML IVPB IV SCH (10:24)
[2018-12-12] MEDS: VASOTEC PO SCH (10:27)
[2018-12-12] MEDS: PROTONIX PO SCH (10:28)
[2018-12-12] MEDS: PLAVIX PO SCH (10:28)
[2018-12-12] MEDS: LASIX PO SCH (10:28)
[2018-12-12 11:00] VITALS: BP 117/75
[2018-12-12] MEDS ORDERED: VANCOMYCIN 1,400 MG in NS 250 ML IV SCH (11:00)
--- NOTE | 2018-12-12 20:14 | DISCHARGE SUMMARY ---
ADMISSION DATE: 12/11/2018 DISCHARGE DATE: 12/12/2018 PRIMARY CARE PHYSICIAN: Dr. Vale Balderrama. ADMISSION DIAGNOSIS: 1. A right middle lobe pneumonia. 2. Acute chronic obstructive pulmonary disease exacerbation. 3. Acute on chronic hypoxic respiratory failure. 4. History of diabetes type 2. 5. History of paroxysmal atrial fibrillation. 6. Chronic congestive heart failure with known ejection fraction of 30 to 35 percent. 7. Chronic opioid abuse. DISCHARGE DIAGNOSIS: 1. A right middle lobe pneumonia. 2. Acute chronic obstructive pulmonary disease exacerbation. 3. Acute on chronic hypoxic respiratory failure. 4. History of diabetes type 2. 5. History of paroxysmal atrial fibrillation. 6. Chronic congestive heart failure with known ejection fraction of 30 to 35 percent. 7. Chronic opioid abuse. SUMMARY OF FINDINGS: This is a 58-year-old female who presented to the ER and is well known to our hospitalist service. When EMS arrived to her home she was saturating in the 80s. They placed her on CPAP then changed her over to BiPAP once she arrived to the emergency room. States that she had been short of breath for 2 days that progressively worsened and a dry cough. Her x-ray showed bilateral nonspecific interstitial opacities that may represent a bone marrow edema, atypical pneumonia or other unusual pneumonitis such as from an inhaled substance. She was admitted. At the time she was seen yesterday she had been downgraded to a non- rebreather at 15% placed on vanc per pharmacy protocol, Zosyn 3.375 g IV q.6, azithromycin 500 IV q.24, Solu-Medrol 80 IV q.8, today she is saturating 100% on room air. States she is feeling much better this morning and wants to go home and it is felt that she can safely be discharged home. DISCHARGE MEDICATIONS: Will include DuoNeb q.4 hours #90 with no refill, Ventolin inhaler 2 puff inhalation q.6 hours p.r.n., atorvastatin 80 mg p.o. daily, Coreg 12.5 mg p.o. at bedtime, clonazepam 0.5 mg p.o. t.i.d., Plavix 75 mg p.o. daily, enalapril 10 mg p.o. daily, furosemide 80 mg p.o. daily, [place] 5 one p.o. p.r.n., Imdur 30 mg p.o. at bedtime, Protonix 40 mg p.o. daily, a prescription for azithromycin 500 mg p.o. daily #5 with no refills, Medrol Dosepak to take as directed and Coumadin 2.5 mg p.o. Friday, Friday, , Friday. FOLLOWUP: She needs to follow up with her primary care physician in the next 1 to 2 weeks and call their office for an appointment. All discharge instructions have been reviewed with the patient and she verbalized understanding. TIME SPENT: 33 minutes. Dictated by RALPH Bailey for Aaron Aly MD Addendum: Patient seen and examined by myself. Agree with RALPH note. It reflects my assessment and plan. Patient is being discharged in stable condition. Will be seen by PCP in a week. cc: Vale Aly MD MTDD
[2018-12-12] MEDS ORDERED: COUMADIN PO SCH (21:00)
== END 2018-12-12 11:55 | disposition home or self-care (01) | DRG 193 ==
LOC: P.ED 04:35 → P.MEDSURG 07:36
PROVIDERS: ATTEND Internal Medicine
CPT/HCPCS: 71010; 71045; 80048; 80053; 82550; 83605; 83880; 84484; 85025; 85610; 85730; 87040; 93005; 94640; 94761; A9270; J0456; J2543; J2930; J3370; J7050

== ENCOUNTER 2019-01-05 04:38 | Inpatient (IN) ==
[2019-01-05] MEDS ORDERED: ROCEPHIN 1 GM in NS 50 ML IV ONE (04:52)
[2019-01-05 05:09] LABS: BASO# 0.02 X1000 (0.0-0.2); BASO% 0.2 % (0.0-0.8); EOS# 0.01 X1000 (0.0-0.7); EOS% 0.1 % (0.0-10.0); HEMATOCRIT 41.3 % (37.0-47.0); IMM GRAN# 0.03 X1000 (0.0-0.04); IMM GRAN% 0.3 % (0.0-0.5); LYMPH# 1.68 X1000 (1.2-3.4); LYMPH% 18.5 % (20.5-51.1); MCH 26.5 PG (27-31); MCHC 31.5 g/dL (33-37); MCV 84.1 FL (81-99); MONO# 0.71 X1000 (0.11-0.59); MONO% 7.8 % (1.7-9.3); MPV 11.7 FL (7.4-10.4); NEUT# 6.64 X1000 (1.4-6.5); NEUT% 73.1 % (42.2-75.2); PLT 343 X1000 (130-400); RBC 4.91 XMIL (4.2-5.4); RDW 17.2 % (11.5-14.5); WBC 9.09 X1000 (4.8-10.8)
[2019-01-05 05:24] LABS: BE -4.3 mmoll (-3.0-3.0); BLOOD TYPE ARTERIAL; HCO3-(ACT) 21.1 mmoll (20.0-26.0); METHB 0.6 % (0.0-1.5); PO2(98.6) 55 mmHg (60-100); SAMPLE BLOOD; SAO2 84.9 % (95.0-100.0); THB 13.6 g/dL (11.5-17.4)
[2019-01-05 05:26] LABS: O2HB 78.3 % (95.0-99.0); PCO2(98.6) 89 mmHg (35-45)
[2019-01-05 05:27] LABS: ALLEN TEST NO; MODALITY BI PAP
--- NOTE | 2019-01-05 05:28 | EKG Report ---
Test Performed on : 01/05/2019 04:54:45 AM Test Reason : SOB Blood Pressure : / mmHG Vent. Rate : 122 BPM Atrial Rate : 122 BPM P-R Int : 142 ms QRS Dur : 090 ms QT Int : 322 ms P-R-T Axes : 072 061 018 degrees QTc Int : 458 ms Sinus tachycardia. Right atrial enlargement Cannot rule out Inferior infarct (cited on or before 12-AUG-2018) Cannot rule out Anterior infarct (cited on or before 13-AUG-2018) Abnormal ECG When compared with ECG of 11-DEC-2018 04:38, (Unconfirmed) Questionable change in initial forces of Lateral leads T wave inversion more evident in Inferior leads Unconfirmed Result
--- NOTE | 2019-01-05 05:36 | PROVIDER DOCUMENTATION ---
HPI-Respiratory General - General Chief Complaint: Shortness of Breath Stated Complaint: SOB Time Seen by Provider: 01/05/19 05:12 Source: patient Allergies/Adverse Reactions: Patient Allergies Allergy/AdvReac Type Severity Reaction Status Date / Time levofloxacin [From Levaquin] Allergy Intermediate RASH Verified 07/07/18 07:44 NSAIDS (Non-Steroidal Allergy Unknown Unknown Verified 07/07/18 07:44 Anti-Inflamma Home Medications: Home Medication List Medication Instructions Recorded Confirmed Last Taken Type Isosorbide Mononitrate [Imdur] 30 mg PO QHS 03/11/14 12/11/18 07/06/18 History Enalapril Maleate 10 mg PO DAILY 11/11/17 12/11/18 07/06/18 History Clopidogrel Bisulfate [Plavix] 75 mg PO DAILY 03/22/18 12/11/18 07/06/18 History Carvedilol [Coreg] 12.5 mg PO QHS 07/18/18 12/11/18 Unknown History Pantoprazole [Protonix] 40 mg PO DAILY 10/09/18 12/11/18 Unknown History Warfarin Sodium [Coumadin] 2.5 mg PO SUMOTUTHSA 10/09/18 12/11/18 Unknown History Albuterol Sulfate Inhaler 2 puff INH Q6H PRN PRN #1 inhaler 10/20/18 12/11/18 Unknown Rx [Ventolin Hfa] Atorvastatin Calcium 80 mg PO DAILY 12/11/18 12/11/18 Unknown History Clonazepam 0.5 mg PO TID 12/11/18 12/11/18 Unknown History Furosemide 80 mg PO DAILY 12/11/18 12/11/18 Unknown History Hydrocodone/Acetaminophen [[place] 1 tab PO PRN PRN 12/11/18 12/11/18 Unknown History 5-325 Tablet] Albuterol 2.5MG/Ipratrop 0.5MG 3 ml INH Q4H PRN PRN #90 neb 12/12/18 Unknown Rx [Duoneb (A & A)] Azithromycin [Zithromax] 500 mg PO DAILY #5 tab 12/12/18 Unknown Rx Methylprednisolone [Medrol Dosepak] 4 mg PO DIRECTED #1 pkg 12/12/18 Unknown Rx - History of Present Illness-Resp Nature of Presenting Problem: COPDER ON BIPAP FOUND BY POORLY RESPONSIVE SITTING ON TOILET SICK FOR A WEAK JUST SAW 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 YESTERDAY HAS INFILTRATIVE PROCESS, Quality of Pain: reports: none Severity in ED: reports: severe Onset/Duration: reports: 1 hour ago Timing: reports: still present Context: reports: recent URI Exposure: reports: unknown cause Cough Quality/Degree: reports: productive cough Episode Frequency: frequent episodes Current Respiratory Medication Therapy: Initiated albuterol/atrovent inhale Modifying Factors: improves with: exertion, coughing, deep breath, oxygen, sitting upright Associated Symptoms: reports: cough, shortness of breath Similar Symptoms Previously?: Yes Recently seen or treated by another doctor?: Yes Review of Systems - Adult - REVIEW OF SYSTEMS - ADULT Constitutional: reports: no symptoms reported Eyes: reports: no symptoms reported Ears, Nose, Mouth & Throat: denies: sinus problem, throat swelling Cardiovascular: reports: palpitations Respiratory: reports: chronic cough, cough, dyspnea on exertion, excessive sputum production, shortness of breath, wheezing Gastrointestinal: reports: no symptoms reported Musculoskeletal: reports: no symptoms reported Integumentary: reports: no symptoms reported Neurological: reports: no symptoms reported Psychiatric: reports: no symptoms reported Endocrine: reports: no symptoms reported Hematologic/Lymphatic: reports: no symptoms reported Allergic/Immunologic: reports: no symptoms reported Past History - Adult - PAST MEDICAL HISTORY-ADULT Review of Records: reports: Nursing Assessment Review, Medications Reviewed, Social history reviewed & non-contributory. Major Childhood Illnesses: reports: denies history Cardiovascular: reports: CAD, CHF, hyperlipidemia, CO Respiratory: reports: COPD, pneumonia (was treated last hospitalization), other (hx of respiratory failure, hypoxia, hypercarbia) Gastrointestinal: reports: GERD Obstetrical/Gynecological: reports: denies history Genitourinary: reports: denies history Musculoskeletal: reports: chronic pain Neurological: reports: CVA Psychiatric: reports: anxiety Endocrine/Immune: reports: denies history Other Conditions: reports: denies history - PRIOR SURGERIES/PROCEDURES Surgical/Procedure History: reports: other, appendectomy, cholecystectomy - PRIOR HOSPITALIZATIONS Prior Hospitalizations: reports: for similar symptoms - IMMUNIZATION STATUS Childhood Immunizations: See Nurse Assessment Flu Vaccine: See Nurse Assessment - FAMILY HISTORY Family History: reviewed, not pertinent Physical Exam-General - PHYSICAL EXAM-ADULT Initial Vital Signs Reviewed: Yes - CONSTITUTIONAL General Appearance: severe distress - EYES Eyes: PERRL/EOMI, pink conjunctivae - HEAD, EARS, NOSE, MOUTH & THROAT HENMT: moist mucous membranes, normal ENT inspection - NECK Neck: full range of motion, supple - RESPIRATORY Respiratory: respiratory distress, decreased breath sounds, accessory muscle use , rhonchi, increased rate - CARDIOVASCULAR Cardiovascular: regular rate, rhythm, tachycardia - GASTROINTESTINAL (ABDOMEN) Abdominal Exam: normal bowel sounds, non tender, soft - LYMPHATIC Lymphatic: no adenopathy - MUSCULOSKELETAL Back Exam: normal inspection, no CVA tenderness Extremity: non-tender Peripheral Pulses: dorsalis-pedis (R): 1+, dorsalis-pedis (L): 1+ - SKIN Integumentary: normal color - NEUROLOGIC Neurologic: grossly normal - PSYCHIATRIC Psych/Mental Status: oriented x 3 Progress - PLAN OF CARE/RESULTS Progress/Plan/Lab Results: Vital Signs - 8 hr 01/05/19 04:40 01/05/19 05:25 01/05/19 05:29 Temperature 98.6 F Pulse Rate 127 H 110 H 108 H Respiratory Rate 30 H 28 H 26 H Blood Pressure 188/93 160/97 160/97 O2 Sat by Pulse Oximetry 89 L 91 L 91 L Laboratory Results - last 24 hr 01/05/19 01/05/19 01/05/19 04:32 04:53 04:54 WBC 9.09 RBC 4.91 Hgb 13.0 Hct 41.3 MCV 84.1 MCH 26.5 L MCHC 31.5 L RDW Std Deviation 17.2 H Plt Count 343 MPV 11.7 H Immature Gran % (Auto) 0.3 Neut % (Auto) 73.1 Lymph % (Auto) 18.5 L Moody % (Auto) 7.8 Eos % (Auto) 0.1 Baso % (Auto) 0.2 Immature Gran # (Auto) 0.03 Neut # (Auto) 6.64 H Lymph # (Auto) 1.68 Moody # (Auto) 0.71 H Eos # (Auto) 0.01 Baso # (Auto) 0.02 Specimen Type ARTERIAL Sample Site L BRACHIAL pH 7.10 L* pCO2 89 H* pO2 55 L HCO3 21.1 Base Excess -4.3 L Oxyhemoglobin 78.3 L* ABG O2 Sat (Calculated) 15.0 ABG O2 Saturation 84.9 L ABG Carboxyhemoglobin 7.20 H* ABG Methemoglobin 0.6 Kirk Test NO A-a O2 Difference 547.0 Total Hemoglobin 13.6 Lactate 3.30 H Blood Gas Modality BI PAP FiO2 % 100.0 POC Glucose 297 H Orders Category Date Time Status CHEST-PORTABLE [RAD] Stat Exams 01/05/19 04:[address] THORAX W/O CONTRAST [CT] Stat Exams 01/05/19 05:22 Ordered ABG [RESP] Routine Lab 01/05/19 04:32 Completed BLOOD CULTURE [BLDCUL] Stat Lab 01/05/19 05:02 Ordered CBC WITH ELECTRONIC DIFF [HEME] Stat Lab 01/05/19 04:54 Completed CK PROFILE [SP CHEM] Stat Lab 01/05/19 05:17 Received COMPREHENSIVE METABOLIC PANEL [CHEM] Stat Lab 01/05/19 05:17 Received TROPONIN T Stat Lab 01/05/19 05:03 Ordered URINE DRUG SCREEN PL Stat Lab 01/05/19 05:15 Received CefTRIAXONE [Rocephin] 1 gm Med 01/05/19 04:52 Discontinued 0.9% Sodium Chloride Inj [Ns] 50 ml IV NOW EKG [EKG] Stat Ther 01/05/19 05:28 Draft Transfer/Admit Order [TRANSFER] Routine Transfer 01/05/19 05:16 Ordered Result Diagrams: 01/05/19 04:54 - EKG 1 Time of EKG reading by physician:: 05:38 EKG Read and Signed by:: Manuel Rosado Rate: 122 Rhythm: SINUS TACYCARDIA QRS: normal GA Interval: normal ST Wave: normal - XRAY 1 XRAY Study: Chest Impression: Abnormal (PROGRESSIVE INTERSTITIAL DZ) Departure - Departure Referrals and Follow-Ups: None,PCP [Primary Care Provider] -
[2019-01-05 05:40] LABS: UR AMPHETAMINES QUAL NONE DETECTED (NONE DETECT); UR BARBITUATES QUAL NONE DETECTED (NONE DETECT); UR BENZODIAZEPIN QUAL NONE DETECTED (NONE DETECT); UR CANNABINOIDS QUAL NONE DETECTED (NONE DETECT); UR COCAINE QUAL NONE DETECTED (NONE DETECT); UR METHADONE QUAL NONE DETECTED (NONE DETECT); UR METHAMPHETAMINE QUAL NONE DETECTED (NONE DETECT); UR OPIATES QUAL NONE DETECTED (NONE DETECT); UR OXYCODONE QUAL NONE DETECTED (NONE DETECT); UR PCP QUAL NONE DETECTED (NONE DETECT); UR PROPOXYPHENE QUAL NONE DETECTED (NONE DETECT); UR TCA QUAL NONE DETECTED (NONE DETECT)
[2019-01-05 05:41] LABS: ALBUMIN 3.9 g/dL (3.5-5.0); CALCIUM 8.6 mg/dL (8.8-10.2); CREATININE 1.1 mg/dL (0.5-0.9); POTASSIUM 3.9 mmol/L (3.5-5.1); TOTAL BILIRUBIN 0.2 mg/dL (0.20-1.00); TOTAL PROTEIN 8.1 g/dL (6.3-8.3)
--- NOTE | 2019-01-05 06:43 | Diag Imaging Result Doc PS360 ---
EXAM: CHEST-PORTABLE HISTORY: sob TECHNIQUE: Portable chest single view COMPARISON: 01/02/2019 FINDINGS: Poor inspiratory effort. There are bilateral infiltrates. No cardiomegaly. No pleural effusions identified. IMPRESSION: Bilateral infiltrates. Electronically signed by Armaan Baldwin 01/05/2019 6:41 AM
[2019-01-05] MEDS: DUONEB (A & A) INH SCH ×5 (07:36→23:09)
--- NOTE | 2019-01-05 07:48 | Diag Imaging Result Doc PS360 ---
EXAM: CT THORAX W/O CONTRAST HISTORY: INFILTRATE TECHNIQUE: CT chest without contrast. Films completed at 7:40 AM COMPARISON: 10/13/2018 FINDINGS: Trace pleural fluid. No cardiomegaly. Severe atherosclerosis. Mildly prominent mediastinal nodes. These are similar to the prior exam. There are groundglass infiltrates throughout both lungs bilaterally. These are fairly similar to the prior exam superiorly. The basilar infiltrates are actually less pronounced than on the prior study. Mild vascular distention. No bronchiectasis. IMPRESSION: 1.Bilateral groundglass infiltrates most pronounced in the lower lobes. Findings are actually improved compared to the prior study. 2.Trace pleural fluid. These are less pronounced. 3.Severe atherosclerosis 4.Persistent mild pulmonary edema. This exam was performed using automated exposure control, adjustment of mA or kV according to patient size, and/or use of iterative reconstruction technique. Electronically signed by Armaan Baldwin 01/05/2019 7:46 AM
[2019-01-05 08:49] LABS: BE -1.7 mmoll (-3.0-3.0); BLOOD TYPE ARTERIAL; HCO3-(ACT) 23.5 mmoll (20.0-26.0); O2(CT) 21.2 mL/dL (15.0-23.0); O2HB 93.9 % (95.0-99.0); PO2(98.6) 107 mmHg (60-100); SAMPLE BLOOD; SAO2 98.5 % (95.0-100.0); pH(98.6) 7.29 (7.35-7.45)
[2019-01-05 08:57] LABS: ALLEN TEST YES; MODALITY BI PAP; PCO2(98.6) 54 mmHg (35-45)
[2019-01-05] MEDS ORDERED: NORCO-5 PO PRN (10:53)
[2019-01-05] MEDS ORDERED: LIPITOR PO SCH ×2 (11:00→21:00)
[2019-01-05] MEDS ORDERED: ZITHROMAX 500 MG/NS 500 MG/250 ML IVPB IV SCH (11:15)
[2019-01-05] MEDS: PROTONIX PO SCH (11:22)
[2019-01-05] MEDS: LASIX PO SCH (11:22)
[2019-01-05] MEDS: PLAVIX PO SCH (11:22)
[2019-01-05] MEDS: SOLU-MEDROL IV SCH ×2 (11:23→23:31)
--- NOTE | 2019-01-05 12:03 | HISTORY AND PHYSICAL ---
PATIENT'S PRIMARY CARE PROVIDER: None. PATIENT'S CHIEF COMPLAINT: Shortness of breath. HISTORY OF PRESENT ILLNESS: The patient was found by to be on commode when she was experiencing increasing shortness of breath. She has known history of COPD with a recent upper respiratory infection and had seen her damper fitter on Friday01/04/2019. She also has a known infiltrative process disease. The patient was then admitted to the emergency room, where EKG showed sinus tachycardia with right atrial enlargement and T-wave inversion in inferior leads was more evident as compared to the EKG in 12/11/2018. Her chest x-ray did show bilateral infiltrates. CT showed bilateral ground-glass infiltrates. The patient was admitted to [facility] for further treatment. PATIENT'S PAST MEDICAL HISTORY: Includes: 1. CAD. 2. CHF with known ejection fraction of 30% to 35%. 3. Hyperlipidemia. 4. OK. 5. COPD. 6. Pneumonia. 7. Respiratory failure. 8. Hypoxia. 9. Hypercarbia. 10. GERD. 11. CVA. 12. Anxiety. 13. Paroxysmal atrial fibrillation. 14. Diabetes mellitus, type 2. 15. Chronic opioid use. SURGICAL HISTORY: Includes appendectomy, cholecystectomy, cardiac catheterization, and carotid endarterectomy. PATIENT'S SOCIAL HISTORY: Patient was a former [id number] smoker. She does live with her family and denies any alcohol or illicit drug use. PATIENT'S ALLERGIES: Levaquin and NSAIDs. PATIENT'S HOME MEDICATIONS: Include isosorbide 30 mg p.o. at bedtime. Plavix 75 mg p.o. daily. Coreg 12.5 mg p.o. at bedtime. Protonix 40 mg p.o. daily. Warfarin 2.5 mg p.o. Albuterol inhaler 2 puffs q.6 h. as needed. Atorvastatin 80 mg p.o. daily. Clonazepam 0.5 mg p.o. t.i.d. Lasix 80 mg p.o. daily. [place] 1 tablet p.o. as needed for pain. DuoNeb q.4 h. p.r.n. Azithromycin 500 mg p.o. daily. Methylprednisolone Dosepak 4 mg as directed. Medications are to be reconciled and will update when they are fully reconciled. REVIEW OF SYSTEMS: Constitutional: The patient states that she experienced generalized weakness. HEENT: The patient denies nasal congestion or vision changes. Neck: Not painful at this time. Endocrine: Denies excessive thirst, urination, intolerance to heat. Cardiovascular: Denies palpitations, chest pain. Does have dyspnea on exertion and lower leg slight edema. Respiratory: The patient has diminished bilateral bases with shortness of breath. Gastrointestinal: Patient denies nausea, vomiting, hematemesis, diarrhea, or constipation presently. Genitourinary: No burning, frequency, or urgency. Musculoskeletal: Patient has generalized weakness and chronic muscle pain. Neurological: Denies syncope, dizziness, tremors, or vertigo. Hematological: Denies bruising. Psychiatric: History of anxiety. Skin: No rashes or lesions noted. DIAGNOSTIC STUDIES: White blood cells are 9.09, hemoglobin 13.0, hematocrit 41.3. Patient's blood gas shows a pH of 7.29, pCO2 of 54, PO2 of 107, HCO3 of 23.5 with a base excess of -1.7, carboxyhemoglobin is 3.80. Sodium is 143, potassium 3.9, chloride 104, CO2 is 24, carbon dioxide is 24, creatinine is 1.1, blood glucose was 271, alkaline phosphatase of 0.7. No opioids were detected. PHYSICAL EXAMINATION: VITAL SIGNS: Temperature is 98.6 degrees, heart rate is 100, respiratory rate of 24, blood pressure is 188/93, the patient is 100% currently on BiPAP. GENERAL: This is a 58-year-old female, ill appearing. HEENT: Normocephalic. PERRLA. Mucous membranes are moist. NECK: No lymphadenopathy noted. CARDIOVASCULAR: There are no murmurs, gallops, or rubs. Rate and rhythm are regular. RESPIRATORY: Diminished breath sounds to bilateral bases. Nonlabored. No accessory muscle use. GASTROINTESTINAL: Soft and nontender. Bowel sounds were audible x4 quadrants. NEUROLOGICAL: Cranial nerves 2 through 12 grossly intact. MUSCULOSKELETAL: Some weakness noted to legs. Good strength 5/5 in upper extremities. SKIN: Warm, dry, and intact. ASSESSMENT: 1. Acute respiratory failure, hypercarbic. 2. Chronic obstructive pulmonary disease. 3. Bilateral lower lobe pneumonia. PLAN: We will admit to [facility]. Obtain daily weights and fasting blood sugars, Accu-Cheks, and place on a low-dose insulin protocol. Vital signs per routine. Telemetry. We will place on BiPAP and diabetic diet. We will obtain blood cultures, troponins, and UA, A1c, CBC, CMP, and a magnesium level. Medications are albuterol, Coreg 12.5 mg p.o. at bedtime, atorvastatin 80 mg p.o. daily, clonazepam 0.5 mg p.o. t.i.d., Plavix 75 mg p.o. daily, Lasix 80 mg p.o. daily, hydrocodone 1 tablet p.o. p.r.n., Solu-Medrol 60 mg IV q.12 h., Protonix 40 mg p.o. daily, Rocephin 1 g q.24 h., azithromycin 500 mg q.24 h. Further recommendations will be pending per clinical course and response to therapy. Dictated by RALPH Mckinnon for Aaron Aly MD Addendum: Patient seen and examined by myself. Agree with [employer] note. It reflects my assessment and plan. Patient is being admitted to hospital for acute on chronic hypercapnic respiratory failure secondary to COPD exacerbation. She is very acidotic. Will continue with BIPAP and if no improvement in ABG will go ahead and intubate her. Will monitor patient closely. cc: Aaron Aly MD [facility]BLE HOSPITALMinh
[2019-01-05] MEDS: HUMALOG (PARKWAY) SUBQ SCH ×3 (12:10→21:03)
[2019-01-05] MEDS: ZOFRAN IV PRN (12:12)
[2019-01-05] MEDS: CULTURELLE PO SCH ×2 (12:57→21:02)
[2019-01-05] MEDS: NICODERM PATCH TD SCH (12:57)
[2019-01-05] MEDS: KLONOPIN PO SCH ×2 (15:16→21:02)
[2019-01-05] MEDS ORDERED: COREG PO SCH (21:00)
[2019-01-05 23:19] LABS: URINE SOURCE CLEAN CATCH
[2019-01-05 23:20] LABS: BILIRUBIN URINE NEGATIVE (NEGATIVE); BLOOD URINE TRACE (NEGATIVE); CLARITY CLEAR (CLEAR); COLOR YELLOW; GLUCOSE URINE NEGATIVE (NEGATIVE); KETONE URINE NEGATIVE (NEGATIVE); LEUKOCYTES URINE NEGATIVE (NEGATIVE); NITRITE URINE NEGATIVE (NEGATIVE); PH URINE 6.5; PROTEIN URINE NEGATIVE (NEGATIVE); SP GRAVITY URINE 1.015; UROBILINOGEN URINE NORMAL
[2019-01-05 23:36] LABS: URINE BACTERIA 2+ /HFP; URINE CAST NONE SEEN /LPF; URINE CRYSTAL NONE SEEN /HPF; URINE EPITHELIAL CELLS <10 /HPF (<10); URINE RBC <10 /HPF (<10); URINE YEAST NONE SEEN /HPF
[2019-01-06] MEDS: ZOFRAN IV PRN (02:12)
[2019-01-06] MEDS: DUONEB (A & A) INH SCH ×3 (03:29→11:05)
[2019-01-06] MEDS ORDERED: ROCEPHIN 1 GM in NS 50 ML IV SCH (05:00)
[2019-01-06] MEDS: HUMALOG (PARKWAY) SUBQ SCH (06:08)
[2019-01-06] MEDS: PROTONIX PO SCH (06:09)
[2019-01-06 06:41] LABS: HEMOGLOBIN 10.7 g/dL (12.0-16.0); IMM GRAN# 0.02 X1000 (0.0-0.04); IMM GRAN% 0.3 % (0.0-0.5); LYMPH# 0.57 X1000 (1.2-3.4); LYMPH% 8.4 % (20.5-51.1); MCH 25.8 PG (27-31); MCHC 30.6 g/dL (33-37); MCV 84.5 FL (81-99); MONO# 0.05 X1000 (0.11-0.59); MONO% 0.7 % (1.7-9.3); MPV 11.8 FL (7.4-10.4); NEUT# 6.16 X1000 (1.4-6.5); NEUT% 90.6 % (42.2-75.2); PLT 217 X1000 (130-400); RBC 4.14 XMIL (4.2-5.4); RDW 16.6 % (11.5-14.5)
[2019-01-06 08:06] LABS: AGAP 15; ALBUMIN 3.6 g/dL (3.5-5.0); ALKALINE PHOSPHATASE 83 U/L (32-104); BUN 21 mg/dL (8-22); CALCIUM 8.3 mg/dL (8.8-10.2); CHLORIDE 101 mmol/L (98-107); COSMO 288; CREATININE 0.9 mg/dL (0.5-0.9); ESTIMATED GFR > 60; GLUCOSE 166 mg/dL (70-104); GOT 18 U/L (10-30); GPT 17 U/L (10-36); MAGNESIUM 1.1 mg/dL (1.5-2.7); POTASSIUM 3.7 mmol/L (3.5-5.1); SODIUM 141 mmol/L (136-145); TCO2 26 mmol/L (25-35)
[2019-01-06 08:10] VITALS: BP 111/64
[2019-01-06 08:37] LABS: BE 0.9 mmoll (-3.0-3.0); BLOOD TYPE ARTERIAL; HCO3-(ACT) 25.6 mmoll (20.0-26.0); METHB 1.2 % (0.0-1.5); O2(CT) 15.6 mL/dL (15.0-23.0); O2HB 95.2 % (95.0-99.0); PCO2(98.6) 38 mmHg (35-45); PO2(98.6) 93 mmHg (60-100); SAMPLE BLOOD; SAO2 98.2 % (95.0-100.0); THB 11.6 g/dL (11.5-17.4); pH(98.6) 7.43 (7.35-7.45)
[2019-01-06 08:38] LABS: MODALITY CANNULA
[2019-01-06 08:39] LABS: ALLEN TEST YES
[2019-01-06 08:42] LABS: LYMPHS 12 % (21-51); MONO 2 % (1-9); SEGS 86 % (42-75)
[2019-01-06 08:43] LABS: ANISOCYTOSIS 1+; MICROCYTOSIS OCCASIONAL; OVALOCYTES OCCASIONAL; POIKILOCYTOSIS OCCASIONAL; POLYCHROM OCCASIONAL
[2019-01-06] MEDS ORDERED: COUMADIN PO SCH ×2 (09:00)
[2019-01-06] MEDS ORDERED: IMDUR PO SCH (09:00)
[2019-01-06] MEDS: KLONOPIN PO SCH (09:33)
[2019-01-06] MEDS: LASIX PO SCH (09:33)
[2019-01-06] MEDS: PLAVIX PO SCH (09:33)
[2019-01-06] MEDS: NICODERM PATCH TD SCH (09:33)
[2019-01-06] MEDS: CULTURELLE PO SCH (09:34)
[2019-01-06] MEDS ORDERED: MAGNESIUM SULFATE 2 GM/S.W.I. 2 GM/50 ML IVPB IV ONE (10:00)
[2019-01-06 11:32] LABS: INR 1.39; PROTIME 17.8 Seconds (11.0-16.0)
--- NOTE | 2019-01-06 22:04 | DISCHARGE SUMMARY ---
ADMISSION DATE: 01/05/2019 DISCHARGE DATE: 01/06/2019 PRIMARY CARE PROVIDER: None. ADMISSION DIAGNOSES: 1. Acute respiratory failure, hypercarbic. 2. Chronic obstructive pulmonary disease. 3. Bilateral lower lobe pneumonia. FINAL DISCHARGE DIAGNOSES: 1. Acute respiratory failure, hypercarbic. 2. Chronic obstructive pulmonary disease with bilateral lower lobe pneumonia. PROCEDURES AND FINDINGS: This patient was found by to be on the commode when she was experiencing increasing shortness of breath. She has a known history of COPD and had a recent upper respiratory infection, and had seen her hog worker on 01/04/2019. She also has known infiltrative process disease. The patient was admitted to the emergency room, where an EKG showed sinus tachycardia and her chest x-ray did show bilateral infiltrates. CT showed bilateral ground- glass infiltrates. The patient was subsequently admitted to [facility] for further treatment. PERTINENT FINDINGS ON ADMISSION: Patient's blood gas showed a pH of 7.29 with a pCO2 of 54, PO2 of 107, HC03 of 23.5, and a base excess of -1.7. The patient's creatinine was 1.1 with a glucose of 271. The patient's CT did show bilateral ground-glass infiltrates most pronounced in the lower lobes. Findings were improved today compared to the prior study. Trace pleural fluid, severe atherosclerosis, and persistent mild pulmonary edema. The patient was then placed on BiPAP, a diabetic diet, telemetry, fasting blood sugars, and low-dose insulin per [facility] protocol. Blood cultures were obtained along with a BMP and CBC. The patient was resumed home medications and placed on Rocephin 1 g q.24 hours and azithromycin 500 mg q.24. Magnesium was repleted for a magnesium level of 1.1. Patient's subsequent labs showed blood gas improvement to 7.43, pCO2 of 38, PO2 of 93, and HCO3 of 25.6, with a base excess of 0.9. DISCHARGE MEDICATIONS INCLUDE: 1. Atorvastatin 80 mg p.o. daily. 2. Coreg 12.5 mg p.o. at bedtime. 3. Clonazepam 0.5 mg p.o. t.i.d. 4. Plavix 75 mg p.o. daily. 5. Furosemide 80 mg p.o. tablet daily. 6. Hydrocodone, [place], 5/325 tablet 1 p.o. p.r.n. 7. Isosorbide mononitrate 30 mg extended release tablet 1 p.o. daily. 8. Nicotine patch 21 mg. 9. Protonix 40 mg p.o. daily. 10. Warfarin 5 mg p.o. daily. 11. Warfarin 2.5 mg tablet p.o. daily. 12. DuoNeb 3 mL q.4 hours p.r.n. 13. Albuterol inhaler 2 puffs q.6 hours p.r.n. 14. Azithromycin 500 mg tablets 1 p.o. daily x5 tablets. 15. Cefdinir 300 mg p.o. b.i.d. x14 capsules. 16. Lactobacillus 1 capsule each of Culture[place] 1 p.o. b.i.d. x10 days. 17. Tiotropium olodaterol, Stiolto Respimat inhaler 4 g of mist inhaler daily. DISCHARGE DIET: Heart healthy. DISCHARGE ACTIVITY: May resume normal activities and activity is as tolerated. DISPOSITION: The patient to be discharged to home to self-care. INSTRUCTIONS: Patient given physician referral number to obtain PCP. Patient to call Surgery for any questions or concerns. All discharge instructions reviewed were with the patient and verbalized understanding. TIME: A 35-minute dictation on discharge. Dictated by RALPH Mckinnon for Aaron Aly MD cc: Aaron Aly MD
== END 2019-01-06 11:38 | disposition home or self-care (01) | DRG 193 ==
LOC: P.ED 04:38 → P.MEDSURG 06:09
PROVIDERS: ATTEND Internal Medicine
CPT/HCPCS: 36415; 71010; 71045; 71250; 80053; 80104; 80301; 80305; 81001; 82550; 82805; 82948; 83036; 83735; 84484; 85025; 85610; 87040; 87088; 93005; 94640; 94660; 94761; A9270; G0431; G0434; G0477; J0456; J0696; J1815; J2405; J2930; J3475; XXXXX

== ENCOUNTER 2019-01-26 02:09 | Inpatient (IN) ==
[2019-01-26] MEDS ORDERED: NITROGLYCERIN SL ONE (02:19)
[2019-01-26] MEDS ORDERED: SOLU-MEDROL IV ONE (02:31)
[2019-01-26 02:44] LABS: BE 0.2 mmoll (-3.0-3.0); BLOOD TYPE ARTERIAL; METHB 0.8 % (0.0-1.5); O2(CT) 15.6 mL/dL (15.0-23.0); O2HB 92.4 % (95.0-99.0); PO2(98.6) 88 mmHg (60-100); SAMPLE BLOOD; SAO2 98.1 % (95.0-100.0); THB 11.9 g/dL (11.5-17.4); pH(98.6) 7.23 (7.35-7.45)
[2019-01-26 02:47] LABS: PCO2(98.6) 70 mmHg (35-45)
[2019-01-26 02:48] LABS: ALLEN TEST YES; MODALITY BI PAP
[2019-01-26 02:50] LABS: BASO# 0.08 X1000 (0.0-0.2); BASO% 0.5 % (0.0-0.8); EOS# 0.35 X1000 (0.0-0.7); EOS% 2.3 % (0.0-10.0); HEMATOCRIT 39.2 % (37.0-47.0); HEMOGLOBIN 12.2 g/dL (12.0-16.0); IMM GRAN# 0.04 X1000 (0.0-0.04); IMM GRAN% 0.3 % (0.0-0.5); LYMPH# 2.51 X1000 (1.2-3.4); LYMPH% 16.8 % (20.5-51.1); MCH 26.9 PG (27-31); MCHC 31.1 g/dL (33-37); MCV 86.3 FL (81-99); MONO% 6.7 % (1.7-9.3); NEUT% 73.4 % (42.2-75.2); PLT 303 X1000 (130-400); RBC 4.54 XMIL (4.2-5.4); RDW 17.6 % (11.5-14.5); WBC 14.98 X1000 (4.8-10.8)
[2019-01-26 02:53] LABS: PTT 53.5 Seconds (22.3-41.8)
[2019-01-26 03:03] LABS: INR 4.64; PROTIME 45.9 Seconds (11.0-16.0)
[2019-01-26 03:15] LABS: AGAP 14; ALBUMIN 3.8 g/dL (3.5-5.0); ALKALINE PHOSPHATASE 96 U/L (32-104); BUN 22 mg/dL (8-22); CALCIUM 8.8 mg/dL (8.8-10.2); CHLORIDE 99 mmol/L (98-107); COSMO 290; CREATININE 0.7 mg/dL (0.5-0.9); ESTIMATED GFR > 60; GLUCOSE 330 mg/dL (70-104); GOT 38 U/L (10-30); GPT 13 U/L (10-36); SODIUM 137 mmol/L (136-145); TCO2 23 mmol/L (25-35); TOTAL PROTEIN 7.2 g/dL (6.3-8.3)
[2019-01-26 03:17] LABS: POTASSIUM 5.8 mmol/L (3.5-5.1)
[2019-01-26] MEDS ORDERED: HUMULIN R IV ONE (03:17)
[2019-01-26] MEDS ORDERED: HUMULIN R (PARKWAY) ONE (03:19)
[2019-01-26] MEDS ORDERED: LASIX IV ONE (03:28)
--- NOTE | 2019-01-26 05:13 | EKG Report ---
Test Performed on : 01/26/2019 02:08:35 AM Test Reason : sob Blood Pressure : / mmHG Vent. Rate : 116 BPM Atrial Rate : 116 BPM P-R Int : 144 ms QRS Dur : 088 ms QT Int : 328 ms P-R-T Axes : 074 071 012 degrees QTc Int : 455 ms Sinus tachycardia. Possible Left atrial enlargement Cannot rule out Inferior infarct (cited on or before 12-AUG-2018) Cannot rule out Anterior infarct (cited on or before 13-AUG-2018) Abnormal ECG When compared with ECG of 05-JAN-2019 04:54, (Unconfirmed) No significant change was found Unconfirmed Result
[2019-01-26 05:15] LABS: HEMOGLOBIN A1C 6.1 % (4.8-6.0)
--- NOTE | 2019-01-26 05:19 | PROVIDER DOCUMENTATION ---
HPI-Respiratory General - General Chief Complaint: Shortness of Breath Stated Complaint: SOB Time Seen by Provider: 01/26/19 02:10 Source: patient Allergies/Adverse Reactions: Patient Allergies Allergy/AdvReac Type Severity Reaction Status Date / Time levofloxacin [From Levaquin] Allergy Intermediate RASH Verified 07/07/18 07:44 NSAIDS (Non-Steroidal Allergy Unknown Unknown Verified 07/07/18 07:44 Anti-Inflamma Home Medications: Home Medication List Medication Instructions Recorded Confirmed Last Taken Type Clopidogrel Bisulfate [Plavix] 75 mg PO DAILY 03/22/18 01/05/19 07/06/18 History Carvedilol [Coreg] 12.5 mg PO QHS 07/18/18 01/05/19 Unknown History Pantoprazole [Protonix] 40 mg PO DAILY 10/09/18 01/05/19 Unknown History Albuterol Sulfate Inhaler 2 puff INH Q6H PRN PRN #1 inhaler 10/20/18 01/05/19 Unknown Rx [Ventolin Hfa] Atorvastatin Calcium 80 mg PO DAILY 12/11/18 01/05/19 Unknown History Clonazepam 0.5 mg PO TID 12/11/18 01/05/19 Unknown History Furosemide 80 mg PO DAILY 12/11/18 01/05/19 Unknown History Hydrocodone/Acetaminophen [[place] 1 tab PO PRN PRN 12/11/18 01/05/19 Unknown History 5-325 Tablet] Albuterol 2.5MG/Ipratrop 0.5MG 3 ml INH Q4H PRN PRN #90 neb 12/12/18 01/05/19 Unknown Rx [Duoneb (A & A)] Isosorbide Mononitrate [Isosorbide 1 tab PO DAILY 01/05/19 01/05/19 Unknown History Mononitrate ER] Azithromycin [Zithromax] 1 tab PO DAILY #5 tab 01/06/19 Unknown Rx Cefdinir 300 mg PO BID #14 cap 01/06/19 Unknown Rx Nicotine Patch [Nicoderm Patch] 21 mg TD DAILY patch.[id number] 01/06/19 Unknown Rx Tiotropium Br/Olodaterol HCl 4 gm INHALATION DAILY #1 mist.inhal 01/06/19 Unknown Rx [Stiolto Respimat Inhal [place]] Warfarin Sodium 2.5 mg PO DAILY 01/06/19 01/06/19 Unknown History Warfarin Sodium 5 mg PO DAILY 01/06/19 01/06/19 Unknown History - History of Present Illness-Resp Nature of Presenting Problem: 58 y/o WF c/o SOB for the past 6 hrs and notes that her oxygen was unhooked at home tonight. Pt also notes that she fell at home and c/o generalized back pain. EMS notes that pt has sats in 70'S on arrival. Quality of Pain: reports: aching Severity in ED: reports: moderate Onset/Duration: reports: unsure Timing: reports: still present Context: reports: recent URI (per ) Cough Quality/Degree: reports: no cough Episode Frequency: frequent episodes Current Respiratory Medication Therapy: Initiated see nurses note, Initiated A/A nebulizer Modifying Factors: improves with: exertion, oxygen Associated Symptoms: reports: shortness of breath. denies: chest pain/soreness Similar Symptoms Previously?: Yes Recently seen or treated by another doctor?: No Review of Systems - Adult - REVIEW OF SYSTEMS - ADULT Constitutional: reports: no symptoms reported, see HPI Eyes: reports: no symptoms reported, see HPI Ears, Nose, Mouth & Throat: reports: no symptoms reported, see HPI Cardiovascular: reports: no symptoms reported, see HPI Respiratory: reports: see HPI, shortness of breath Gastrointestinal: reports: no symptoms reported, see HPI Genitourinary: reports: no symptoms reported, see HPI Musculoskeletal: reports: see HPI, back pain Neurological: reports: no symptoms reported, see HPI Psychiatric: reports: no symptoms reported, see HPI Endocrine: reports: no symptoms reported, see HPI Hematologic/Lymphatic: reports: no symptoms reported, see HPI Allergic/Immunologic: reports: no symptoms reported, see HPI All Other Systems: Reviewed and Negative Past History - Adult - PAST MEDICAL HISTORY-ADULT Review of Records: reports: Nursing Assessment Review, Medications Reviewed, Social history reviewed & non-contributory. Major Childhood Illnesses: reports: denies history Cardiovascular: reports: CAD, CHF, hyperlipidemia, [place] Respiratory: reports: COPD, pneumonia (was treated last hospitalization), other (hx of respiratory failure, hypoxia, hypercarbia) Gastrointestinal: reports: GERD Obstetrical/Gynecological: reports: denies history Genitourinary: reports: denies history Musculoskeletal: reports: chronic pain Neurological: reports: CVA Psychiatric: reports: anxiety Endocrine/Immune: reports: denies history Other Conditions: reports: denies history - PRIOR SURGERIES/PROCEDURES Surgical/Procedure History: reports: other, appendectomy, cholecystectomy - PRIOR HOSPITALIZATIONS Prior Hospitalizations: reports: for similar symptoms - IMMUNIZATION STATUS Childhood Immunizations: See Nurse Assessment Flu Vaccine: See Nurse Assessment - FAMILY HISTORY Family History: reviewed, not pertinent Physical Exam-General - PHYSICAL EXAM-ADULT Initial Vital Signs Reviewed: Yes - CONSTITUTIONAL General Appearance: appears well, alert, mild distress - EYES Eyes: PERRL/EOMI - HEAD, EARS, NOSE, MOUTH & THROAT HENMT: normocephalic/atraumatic, moist mucous membranes - NECK Neck: non-tender, full range of motion, supple, normal inspection - RESPIRATORY Respiratory: chest non-tender, no pleuratic chest pain, no accessory muscle use, respiratory distress, wheezing - CARDIOVASCULAR Cardiovascular: normal peripheral pulses, no edema, no gallop, no JVD, no murmur , tachycardia - GASTROINTESTINAL (ABDOMEN) Abdominal Exam: normal bowel sounds, non tender, soft, no organomegaly, no pulsatile mass - LYMPHATIC Lymphatic: no adenopathy - MUSCULOSKELETAL Back Exam: no CVA tenderness, muscle spasm Extremity: normal range of motion, non-tender, normal gait, normal inspection, no pedal edema, no calf tenderness, normal capillary refill - SKIN Integumentary: normal color, normal turgor - NEUROLOGIC Neurologic: 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 nml as tested, grossly normal, no motor/sensory deficits - PSYCHIATRIC Psych/Mental Status: normal mood/affect, normal thought content, normal thought process, oriented x 3 - HEART Score HEART Score: History: Slightly Suspicious HEART Score: ECG: Non-Specific Repolarization Disturbance/LBBB/PM HEART Score: Age: 45-65 Years HEART Score: Risk Factors for Atherosclerotic Disease: 1 or 2 Risk Factors HEART Score: Troponin: < or = Normal Limit Total HEART Score:: 3 Progress - PLAN OF CARE/RESULTS Progress/Plan/Lab Results: Vital Signs - 8 hr 01/26/19 02:03 01/26/19 02:34 01/26/19 03:26 Temperature 97.4 F L 97.3 F L 97.9 F Pulse Rate 114 H 110 H 95 H Respiratory Rate 30 H 25 H 20 Blood Pressure 165/92 132/77 O2 Sat by Pulse Oximetry 89 L 93 L 100 01/26/19 05:33 Temperature 98.7 F Pulse Rate 86 Respiratory Rate 18 Blood Pressure 147/79 O2 Sat by Pulse Oximetry 100 Laboratory Results - last 24 hr 01/26/19 01/26/19 01/26/19 02:26 02:30 02:30 WBC 14.98 H RBC 4.54 Hgb 12.2 Hct 39.2 MCV 86.3 MCH 26.9 L MCHC 31.1 L RDW Std Deviation 17.6 H Plt Count 303 MPV 12.0 H Immature Gran % (Auto) 0.3 Neut % (Auto) 73.4 Lymph % (Auto) 16.8 L Graves % (Auto) 6.7 Eos % (Auto) 2.3 Baso % (Auto) 0.5 Immature Gran # (Auto) 0.04 Neut # (Auto) 11.00 H Lymph # (Auto) 2.51 Graves # (Auto) 1.00 H Eos # (Auto) 0.35 Baso # (Auto) 0.08 PT INR PTT (Actin FS) Specimen Type ARTERIAL Sample Site L RADIAL pH 7.23 L pCO2 70 H* pO2 88 HCO3 25.0 Base Excess 0.2 Oxyhemoglobin 92.4 L ABG O2 Sat (Calculated) 15.6 ABG O2 Saturation 98.1 ABG Carboxyhemoglobin 5.00 H ABG Methemoglobin 0.8 Kirk Test YES A-a O2 Difference 538.0 Total Hemoglobin 11.9 Blood Gas Modality BI PAP Vent Mode BIPAP FiO2 % 100.0 Inspiratory BiPAP 12.0 Expiratory BiPAP 5.0 Sodium Potassium Chloride Carbon Dioxide Anion Gap BUN Creatinine Estimated GFR/1.73 m2 BUN/Creatinine Ratio Glucose POC Glucose Estimat Average Glucose Hemoglobin A1c Calculated Osmolality Calcium Total Bilirubin AST ALT Alkaline Phosphatase Troponin T < 0.010 Tyj-L-Oxzdygdfzfo Pept Total Protein Albumin Globulin Albumin/Globulin Ratio 01/26/19 01/26/19 01/26/19 02:30 02:30 02:30 WBC RBC Hgb Hct MCV MCH MCHC RDW Std Deviation Plt Count MPV Immature Gran % (Auto) Neut % (Auto) Lymph % (Auto) Graves % (Auto) Eos % (Auto) Baso % (Auto) Immature Gran # (Auto) Neut # (Auto) Lymph # (Auto) Graves # (Auto) Eos # (Auto) Baso # (Auto) PT 45.9 H INR 4.64 PTT (Actin FS) 53.5 H Specimen Type Sample Site pH pCO2 pO2 HCO3 Base Excess Oxyhemoglobin ABG O2 Sat (Calculated) ABG O2 Saturation ABG Carboxyhemoglobin ABG Methemoglobin Kirk Test A-a O2 Difference Total Hemoglobin Blood Gas Modality Vent Mode FiO2 % Inspiratory BiPAP Expiratory BiPAP Sodium 137 Potassium 5.8 H Chloride 99 Carbon Dioxide 23 L Anion Gap 14 BUN 22 Creatinine 0.7 Estimated GFR/1.73 m2 > 60 BUN/Creatinine Ratio 31 Glucose 330 H POC Glucose Estimat Average Glucose Hemoglobin A1c Calculated Osmolality 290 Calcium 8.8 Total Bilirubin 0.30 AST 38 H ALT 13 Alkaline Phosphatase 96 Troponin T Hcf-I-Ueswduqpdwv Pept 1330 H Total Protein 7.2 Albumin 3.8 Globulin 3.0 Albumin/Globulin Ratio 1.0 01/26/19 01/26/19 02:30 05:24 WBC RBC Hgb Hct MCV MCH MCHC RDW Std Deviation Plt Count MPV Immature Gran % (Auto) Neut % (Auto) Lymph % (Auto) Graves % (Auto) Eos % (Auto) Baso % (Auto) Immature Gran # (Auto) Neut # (Auto) Lymph # (Auto) Graves # (Auto) Eos # (Auto) Baso # (Auto) PT INR PTT (Actin FS) Specimen Type Sample Site pH pCO2 pO2 HCO3 Base Excess Oxyhemoglobin ABG O2 Sat (Calculated) ABG O2 Saturation ABG Carboxyhemoglobin ABG Methemoglobin Kirk Test A-a O2 Difference Total Hemoglobin Blood Gas Modality Vent Mode FiO2 % Inspiratory BiPAP Expiratory BiPAP Sodium Potassium Chloride Carbon Dioxide Anion Gap BUN Creatinine Estimated GFR/1.73 m2 BUN/Creatinine Ratio Glucose POC Glucose 106 H Estimat Average Glucose 128 Hemoglobin A1c 6.1 H Calculated Osmolality Calcium Total Bilirubin AST ALT Alkaline Phosphatase Troponin T Wcq-E-Bxlsogkibyk Pept Total Protein Albumin Globulin Albumin/Globulin Ratio Orders Category Date Time Status Admit - [facility] Routine AdmDCTranf 01/26/19 05:43 Active CHEST-1 VIEW [RAD] Stat Exams 01/26/19 02:[address] T-SPINE/L-SPINE W/O CON [CT] Stat Exams 01/26/19 05:51 Ordered A1C HGB W EST AVG GLUCOSE [CHEM] Stat Lab 01/26/19 02:30 Completed ABG [RESP] Routine Lab 01/26/19 02:26 Completed ABG [RESP] Routine Lab 01/26/19 05:43 Ordered BASIC METABOLIC PANEL [CHEM] Stat Lab 01/26/19 05:43 Ordered BLOOD CULTURE [BLDCUL] Stat Lab 01/26/19 02:46 Ordered CBC WITH ELECTRONIC DIFF [HEME] Stat Lab 01/26/19 02:30 Completed COMPREHENSIVE METABOLIC PANEL [CHEM] Stat Lab 01/26/19 02:30 Completed PRO B-NATRIURETIC PEPTIDE Stat Lab 01/26/19 02:30 Completed PROTIME WITH INR [COAG] Stat Lab 01/26/19 02:30 Completed PTT [COAG] Stat Lab 01/26/19 02:30 Completed TROPONIN T Q8HR Lab 01/26/19 13:00 Uncollected TROPONIN T Q8HR Lab 01/26/19 21:00 Uncollected TROPONIN T Q8HR Lab 01/27/19 05:00 Uncollected TROPONIN T Stat Lab 01/26/19 02:30 Completed Albuterol 2.5MG/Ipratrop 0.5MG [Duoneb (A & A)] Med 01/26/19 07:30 Active 3 ml INH [id number].WA CefTRIAXONE [Rocephin] 1 gm Med 01/26/19 09:00 Active 0.9% Sodium Chloride Inj [Ns] 50 ml IV DAILY Furosemide [Lasix] Med 01/26/19 03:28 Discontinued 20 mg IV NOW ONE Insulin Human Regular ([place] [Humulin R ([place])] Med 01/26/19 03:19 Discontinued 10 units .ROUTE .STK-MED ONE Insulin Human Regular [Humulin R] Med 01/26/19 03:17 Discontinued 10 unit IV NOW ONE Methylprednisolone Sod Succ [Solu-Medrol] Med 01/26/19 02:31 Discontinued 125 mg IV NOW ONE Nitroglycerin Sl [Nitroglycerin] Med 01/26/19 02:19 Discontinued 0.4 mg SL NOW ONE Aerosol Treatments Routine Oth 01/26/19 05:46 Active Aerosol Treatments Stat Oth 01/26/19 05:46 Active BIPAP Stat Oth 01/26/19 02:00 Active EKG [EKG] Stat Ther 01/26/19 02:02 Draft Transfer/Admit Order [TRANSFER] Routine Transfer 01/26/19 05:44 Ordered At recheck pt noted that she was breathing much better and only notes mild back tenderness. Result Diagrams: 01/26/19 02:30 07/23/19 02:30 - EKG 1 Time of EKG reading by physician:: 02:08 EKG Read and Signed by:: Anuj Maher EKG Interpretation (*Must complete 3 of following elements*): Abnormal Rate: 116 Rhythm: sinus tach [place]: normal QRS: normal [place] Interval: normal Prior EKG Comparison: no prior EKG - XRAY 1 XRAY Study: Chest Impression: Abnormal, See EMR Report (pneumonia) - CONSULTS/PCP/HOSPITALIST Notification #1 *Consult/PCP/Hospitalist*: Dr Zaragoza Time Discussed: 04:30 Consult Disposition: Admit Departure - Departure Date of Disposition Decision: 01/26/19 Time of Disposition Decision: 05:41 DIAGNOSIS: COPD with acute exacerbation, Pneumonia, Hypoxia, Elevated blood sugar, Hyperkalemia, CHF (congestive heart failure) Disposition: ADMITTED INPATIENT 09 Certified Medical Emergency: Emergent Condition: Fair Referrals and Follow-Ups: None,PCP [Primary Care Provider] - - Critical Care Note This patient required my direct & personal management of CC.: Yes Total Time (mins): 35 Critical Care Statement: This patient required my direct personal management to treat or rule out processes, the absence of which, could potentiallly result in sudden, clinically significant life or limb threatening deterioration. Attestation - Physician/ MANDO Attestation Patient care was provided by Advanced Practice Provider:: No The physician spent face to face time with patient:: Yes Advanced Practice Provider documentation review:: Supervising physician onsite and consulted in the evaluation and care of this patient. The physician did have a face to face encounter with the patient.
[2019-01-26 06:34] LABS: BLOOD TYPE ARTERIAL; SAMPLE BLOOD
[2019-01-26 06:35] LABS: BE 5.5 mmoll (-3.0-3.0); HCO3-(ACT) 29.2 mmoll (20.0-26.0); METHB 0.6 % (0.0-1.5); O2(CT) 16.1 mL/dL (15.0-23.0); PO2(98.6) 154 mmHg (60-100); SAO2 99.8 % (95.0-100.0); THB 11.7 g/dL (11.5-17.4); pH(98.6) 7.35 (7.35-7.45)
[2019-01-26 06:38] LABS: MODALITY BI PAP; PCO2(98.6) 59 mmHg (35-45)
[2019-01-26 06:39] LABS: ALLEN TEST YES
--- NOTE | 2019-01-26 07:39 | Diag Imaging Result Doc PS360 ---
EXAM: CT T-SPINE/L-SPINE W/O CON - 01/26/2019 HISTORY: fall injury TECHNIQUE: CT thoracic spine/lumbar spine without contrast COMPARISON: None. FINDINGS: CT thoracic spine: There are artifacts from motion which limit detail. There is mild compression deformity of the T11 vertebral body. This has relatively smooth appearance with mild sclerosis and apparent secondary spondylosis, suggesting that it represents subacute to chronic compression fracture. There is no other fracture identified. There is no subluxation seen. There is multilevel spondylosis with anterior osteophytes. There are no erosive or destructive changes identified. CT of lumbar spine: There are artifacts from motion which limit detail. There is plkc-qs-tbiuwgvm spinal stenosis at L4-5 secondary to diffuse disc protrusion and ligamentum flavum and facet hypertrophy. There is no fracture or subluxation identified. There are atherosclerotic calcifications noted. IMPRESSION: CT thoracic spine: Subacute to chronic mild compression fracture/deformity of T11. No indication of acute fracture or subluxation. CT lumbar spine: Degenerative changes with mild to moderate spinal stenosis at L4-5. No evidence of fracture or subluxation. This exam was performed using automated exposure control, adjustment of mA or kV according to patient size, and/or use of iterative reconstruction technique. Electronically signed by Omar Childress 01/26/2019 7:36 AM
--- NOTE | 2019-01-26 07:41 | Diag Imaging Result Doc PS360 ---
EXAM: CHEST-1 VIEW - 01/26/2019 HISTORY: sob TECHNIQUE: Portable chest COMPARISON: 01/05/2019 FINDINGS: Heart size appears within normal limits. There are ill-defined bilateral infiltrates. These appear overall decreased compared to prior. There is no large pleural effusion identified. There is no pneumothorax seen. IMPRESSION: Ill-defined bilateral infiltrates, overall decreased compared to prior. Electronically signed by Omar Childress 01/26/2019 7:38 AM
[2019-01-26] MEDS: DUONEB (A & A) INH SCH ×5 (08:31→22:35)
[2019-01-26] MEDS: ROCEPHIN 1 GM in NS 50 ML IV SCH (09:18)
[2019-01-26 09:39] LABS: AGAP 10; BUN 27 mg/dL (8-22); CALCIUM 9.3 mg/dL (8.8-10.2); CHLORIDE 101 mmol/L (98-107); COSMO 291; CREATININE 0.8 mg/dL (0.5-0.9); ESTIMATED GFR > 60; GLUCOSE 180 mg/dL (70-104); POTASSIUM 4.4 mmol/L (3.5-5.1); SODIUM 141 mmol/L (136-145); TCO2 30 mmol/L (25-35)
[2019-01-26] MEDS ORDERED: DUONEB (A & A) INH PRN (09:44)
[2019-01-26] MEDS ORDERED: TYLENOL PO PRN (09:45)
[2019-01-26] MEDS: ZITHROMAX PO SCH ×2 (10:22→21:39)
[2019-01-26] MEDS: HUMALOG SUBQ SCH ×3 (11:06→21:39)
[2019-01-26] MEDS: SOLU-MEDROL IV SCH ×2 (11:06→18:21)
[2019-01-26 12:00] LABS: BILIRUBIN URINE NEGATIVE (NEGATIVE); BLOOD URINE 4+ (NEGATIVE); CLARITY CLEAR (CLEAR); COLOR YELLOW; GLUCOSE URINE NEGATIVE (NEGATIVE); KETONE URINE NEGATIVE (NEGATIVE); LEUKOCYTES URINE TRACE (NEGATIVE); NITRITE URINE NEGATIVE (NEGATIVE); PROTEIN URINE 2+(100 mg/dL) mg/dL (NEGATIVE); UROBILINOGEN URINE NORMAL
[2019-01-26 12:05] LABS: URINE BACTERIA 1+ /HFP; URINE CAST NONE SEEN /LPF; URINE CRYSTAL NONE SEEN /HPF; URINE EPITHELIAL CELLS <10 /HPF (<10); URINE RBC TNTC /HPF (<10); URINE SOURCE CATH; URINE WBC <10 /HPF (<10); URINE YEAST NONE SEEN /HPF
--- NOTE | 2019-01-26 12:15 | HISTORY AND PHYSICAL ---
CHIEF COMPLAINT: Shortness of breath and hypoxemia. HISTORY OF PRESENT ILLNESS: This is a 58-year-old female with a history of COPD with ongoing tobacco use, paroxysmal atrial fibrillation, cardiomyopathy, and chronic hypoxic respiratory failure who presents to the emergency room via EMS after being called by the patient's . Evidently, the stated that the patient fell at home and complained of some generalized back pain. He did state that her oxygen had been unhooked prior to coming to the emergency room, and she was found to have a room air O2 saturation in the 70s on EMS arrival. He is unsure how long her oxygen was off. She presented with an O2 saturation of 89% on 4 L nasal cannula, and was placed on BiPAP, and at this time remains on BiPAP. At the time of my exam, the patient is in the ICU. She is lethargic, but she does wake and answer to verbal commands, follows commands, and then dozes back to sleep. She states she is just exhausted. PAST MEDICAL HISTORY: 1. COPD with ongoing tobacco use. 2. Chronic home O2 oxygenation. 3. Mitral valve disease. 4. Paroxysmal atrial fibrillation on chronic anticoagulation. 5. History of prior stroke with residual weakness. 6. Hypertension. 7. Gastroesophageal reflux disease. 8. Obesity. 9. Obstructive sleep apnea. 10. Renal artery disease status post renal stent placement. 11. LV dysfunction with an ejection fraction of 30 to 35 percent. PAST SURGICAL HISTORY: Cholecystectomy and carotid endarterectomy. SOCIAL HISTORY: She continues to smoke cigarettes. She does drink alcohol although she is not forthcoming with the amount or the last time that she drank. REVIEW OF SYSTEMS: Discussed with patient with pertinent positives in the HPI. She denied any syncope, dizziness, any chest pain or palpitations, any nausea, vomiting, diarrhea, constipation, black or bloody vomitus or stools, any hematuria, dysuria, frequency, or urgency. PHYSICAL EXAMINATION: GENERAL: This is a 58-year-old female who is sitting up in the bed in ICU with BiPAP in use. VITAL SIGNS: Blood pressure is 140/76 with a heart rate of 77, respirations 18, temperature is 98 degrees with O2 saturations 96 to 98% on BiPAP at 40%. HEENT: Head is normocephalic, atraumatic. Mucous membranes are dry. NECK: Supple with trachea midline. No JVD. CARDIOVASCULAR: Regular rate and rhythm she is tachycardic. S1 and S2 are appreciated. Calves are nontender bilateral with peripheral pulses palpable. PULMONARY: Breath sounds with wheezes noted, and scattered throughout with prolonged expiration. Chest rises and falls symmetric respiration. Chest wall is nontender to palpation. GASTROINTESTINAL: Abdomen is soft, nontender, and nondistended with bowel sounds in all 4 quadrants. GENITOURINARY: Leary is patent to bedside bag with clear yellow urine draining. SKIN: Warm and dry. LABORATORY: WBC is 14.9 with hemoglobin 12.2, hematocrit 39.2, and platelets of 303,000. INR is 4.64. ABGs with pH of 7.35, with pCO2 of 59 and a PO2 154, and bicarb of 29.2. This is at 6:20 in the morning on BiPAP at 65% with 12/5. ABGs at 2:00 in the morning revealed a pH of 7.23 with pCO2 of 70, PO2 of 88, and bicarb of 25. This is on BiPAP at 100% O2 12/5. Chest x-ray revealed ill-defined bilateral infiltrates but, overall decreased compared to 01/05/[address] CT of the thoracic and lumbar spine revealed subacute to chronic mid mild compression fracture deformity of T11. No indication of acute fracture or subluxation with degenerative changes. Mild to moderate spinal stenosis at L4-L5. No evidence of fracture or subluxation. Blood cultures are pending. ASSESSMENT AND PLAN: 1. Acute on chronic hypoxemic respiratory failure. 2. Hypercapnic respiratory failure. 3. Paroxysmal atrial fibrillation. 4. Bilateral infiltrates and pneumonia. Blood cultures were obtained in the emergency room. She was given Rocephin. will continue with antibiotic coverage of Rocephin and azithromycin, and further antibiotics will be culture driven. 5. Acute chronic obstructive pulmonary disease exacerbation. continue with supplemental oxygen DuoNeb q.4 hours to q.2 hours p.r.n. steroids to taper. 6. Paroxysmal atrial fibrillation. We will continue with telemetry. 7. History of hypertension in a patient with renal artery disease status post stent placement. 8. Gastroesophageal reflux disease. continue PPI. 9. Diabetes mellitus. Pattern blood glucose with sliding scale insulin. 10. Continued tobacco use with nicotine patch. 11. Identify and continue home medications as is appropriate Plan discussed with Dr. Denis. Further treatments pending hospital course. Dictated by RALPH Lugo for Jermaine Denis MD cc: RALPH Lugo MD [facility]
--- NOTE | 2019-01-26 21:34 | HISTORY AND PHYSICAL ---
ADDENDUM: Patient seen and examined by myself. Full note dictated and discussed with nurse practitioner. Patient currently is on BiPAP while in the ER. We will admit her to the ICU, continue BiPAP, breathing treatments, oxygen and will follow. cc: Jermaine Denis MD
[2019-01-27] MEDS ORDERED: ATIVAN ONE (00:06)
--- NOTE | 2019-01-27 00:16 | EKG Report ---
Test Performed on : 01/26/2019 11:47:16 PM Test Reason : CHEST PAIN Blood Pressure : / mmHG Vent. Rate : 103 BPM Atrial Rate : 103 BPM P-R Int : 154 ms QRS Dur : 094 ms QT Int : 338 ms P-R-T Axes : 078 081 -25 degrees QTc Int : 442 ms Sinus tachycardia. with occasional premature ventricular complexes. Cannot rule out Inferior infarct (cited on or before 12-AUG-2018) Abnormal ECG When compared with ECG of 26-JAN-2019 02:08, (Unconfirmed) premature ventricular complexes. are now present Confirmed by Manuel Rosado MD ([id number]) on 02/03/2019 9:40:13 PM
[2019-01-27] MEDS: ATIVAN PO SCH ×4 (00:19→20:29)
[2019-01-27] MEDS: SOLU-MEDROL IV SCH ×3 (03:26→18:35)
[2019-01-27] MEDS: HUMALOG SUBQ SCH (05:15)
[2019-01-27 06:11] LABS: BASO# 0.01 X1000 (0.0-0.2); BASO% 0.1 % (0.0-0.8); HEMATOCRIT 35.9 % (37.0-47.0); IMM GRAN# 0.04 X1000 (0.0-0.04); IMM GRAN% 0.3 % (0.0-0.5); LYMPH# 0.44 X1000 (1.2-3.4); LYMPH% 2.8 % (20.5-51.1); MCH 26.1 PG (27-31); MCHC 30.6 g/dL (33-37); MCV 85.1 FL (81-99); MONO# 0.65 X1000 (0.11-0.59); MONO% 4.2 % (1.7-9.3); MPV 11.8 FL (7.4-10.4); NEUT# 14.34 X1000 (1.4-6.5); NEUT% 92.6 % (42.2-75.2); PLT 234 X1000 (130-400); RBC 4.22 XMIL (4.2-5.4); RDW 16.7 % (11.5-14.5); WBC 15.48 X1000 (4.8-10.8)
[2019-01-27 06:13] LABS: INR 3.43; PROTIME 36.2 Seconds (11.0-16.0)
[2019-01-27 06:27] LABS: AGAP 12; ALBUMIN 3.2 g/dL (3.5-5.0); ALKALINE PHOSPHATASE 87 U/L (32-104); BUN 31 mg/dL (8-22); CALCIUM 9.2 mg/dL (8.8-10.2); CHLORIDE 103 mmol/L (98-107); COSMO 292; CREATININE 0.9 mg/dL (0.5-0.9); ESTIMATED GFR > 60; GLUCOSE 132 mg/dL (70-104); GOT 43 U/L (10-30); GPT 26 U/L (10-36); POTASSIUM 4.3 mmol/L (3.5-5.1); SODIUM 142 mmol/L (136-145); TCO2 27 mmol/L (25-35); TOTAL PROTEIN 6.9 g/dL (6.3-8.3)
[2019-01-27] MEDS ORDERED: PROTONIX PO SCH ×2 (07:00→09:00)
[2019-01-27] MEDS: DUONEB (A & A) INH SCH ×5 (08:04→22:50)
[2019-01-27] MEDS: ROCEPHIN 1 GM in NS 50 ML IV SCH (08:44)
[2019-01-27] MEDS: ZITHROMAX PO SCH (08:44)
[2019-01-27] MEDS: KLONOPIN PO SCH ×3 (08:45→17:41)
[2019-01-27] MEDS: PLAVIX PO SCH (08:45)
[2019-01-27] MEDS: IMDUR PO SCH (08:48)
[2019-01-27] MEDS ORDERED: BLISTEX MEDICATED BERRY LIP BALM TOP PRN (08:50)
[2019-01-27] MEDS: LOMOTIL PO PRN ×3 (08:53→22:07)
[2019-01-27] MEDS ORDERED: COREG PO SCH (09:00)
[2019-01-27] MEDS ORDERED: LIPITOR PO SCH (09:00)
[2019-01-27 09:17] LABS: LYMPHS 9 % (21-51); MONO 4 % (1-9); SEGS 87 % (42-75)
[2019-01-27] MEDS: NORCO-5 PO PRN (11:02)
[2019-01-27] MEDS: HUMALOG (PARKWAY) SUBQ SCH ×3 (11:06→21:54)
--- NOTE | 2019-01-27 20:14 | PROGRESS NOTE ---
DATE: 01/27/2019 SUBJECTIVE: Patient notes that she is feeling better. Denies any fevers. States she is still very anxious, nervous, having panic attacks and having back pain. PHYSICAL EXAMINATION: Vital Signs: Temperature 98 degrees, pulse 130, currently 92, respiratory 35, currently down to 16, BP 173/92 to 155/74. General: Patient is a morbidly obese female who currently is in moderate respiratory distress. She is still on BiPAP, but she is much improved than she was yesterday. Color has improved. She is pleasant to talk with, which is an improvement from yesterday where she was not able to talk at all. HEENT: Normocephalic. Neck: Supple. Cardiovascular: Currently regular rate. No murmurs. Chest: Greatly decreased, but much improved from yesterday's exam. Occasional wheezing. No crackles. Abdomen: Soft, obese, nondistended, nontender. Extremities: Moves all extremities. No edema. Neurologic: No focal changes. She is awake, alert, oriented. ASSESSMENT: 1. Acute hypoxic respiratory failure. 2. Acute hypercapnic respiratory failure, currently on BiPAP. 3. Paroxysmal atrial fibrillation. 4. Bilateral pneumonia. 5. Chronic obstructive pulmonary disease, with exacerbation. 6. Morbid obesity. 7. Diabetes. 8. Hypertension. 9. Leukocytosis. PLAN: 1. We will continue patient in the hospital. 2. Continue BiPAP. Will wean as tolerated. 3. Discussed with patient the perils of Xanax as well as pain medicine, to include respiratory suppression and . We will use this as sparingly as possible. 4. Further orders as needed. cc: Jermaine Denis MD
[2019-01-27] MEDS: COUMADIN PO SCH (20:30)
[2019-01-27] MEDS: COREG PO SCH (20:31)
[2019-01-27] MEDS: ZANAFLEX PO PRN (21:51)
[2019-01-28] MEDS: SOLU-MEDROL IV SCH ×3 (03:10→19:52)
[2019-01-28] MEDS: NORCO-5 PO PRN ×2 (03:17→13:38)
[2019-01-28 06:50] LABS: AGAP 10; ALBUMIN 3.2 g/dL (3.5-5.0); ALKALINE PHOSPHATASE 67 U/L (32-104); BUN 32 mg/dL (8-22); CALCIUM 8.8 mg/dL (8.8-10.2); CHLORIDE 104 mmol/L (98-107); COSMO 289; CREATININE 0.8 mg/dL (0.5-0.9); ESTIMATED GFR > 60; GLUCOSE 150 mg/dL (70-104); GOT 21 U/L (10-30); GPT 18 U/L (10-36); POTASSIUM 4.7 mmol/L (3.5-5.1); SODIUM 140 mmol/L (136-145); TCO2 26 mmol/L (25-35); TOTAL PROTEIN 6.2 g/dL (6.3-8.3)
[2019-01-28 06:53] LABS: INR 3.31; PROTIME 35.2 Seconds (11.0-16.0)
[2019-01-28] MEDS: HUMALOG (PARKWAY) SUBQ SCH ×4 (07:16→20:00)
[2019-01-28 07:19] LABS: EOS# 0.01 X1000 (0.0-0.7); EOS% 0.1 % (0.0-10.0); HEMATOCRIT 32.8 % (37.0-47.0); HEMOGLOBIN 9.8 g/dL (12.0-16.0); IMM GRAN# 0.01 X1000 (0.0-0.04); IMM GRAN% 0.1 % (0.0-0.5); LYMPH# 0.36 X1000 (1.2-3.4); LYMPH% 4.7 % (20.5-51.1); MCH 25.7 PG (27-31); MCHC 29.9 g/dL (33-37); MCV 86.1 FL (81-99); MONO# 0.18 X1000 (0.11-0.59); MONO% 2.3 % (1.7-9.3); MPV 12.2 FL (7.4-10.4); NEUT# 7.18 X1000 (1.4-6.5); NEUT% 92.8 % (42.2-75.2); PLT 186 X1000 (130-400); RBC 3.81 XMIL (4.2-5.4); RDW 17.5 % (11.5-14.5); WBC 7.74 X1000 (4.8-10.8)
[2019-01-28] MEDS: PROTONIX PO SCH (07:34)
[2019-01-28] MEDS: DUONEB (A & A) INH SCH ×5 (08:02→23:06)
[2019-01-28] MEDS: KLONOPIN PO SCH ×3 (08:16→16:20)
[2019-01-28] MEDS: ROCEPHIN 1 GM in NS 50 ML IV SCH (08:16)
[2019-01-28] MEDS: ZANAFLEX PO PRN ×2 (08:17→20:04)
[2019-01-28] MEDS: COREG PO SCH ×2 (08:17→19:59)
[2019-01-28] MEDS: PLAVIX PO SCH (08:18)
[2019-01-28] MEDS: IMDUR PO SCH (08:18)
[2019-01-28] MEDS: ATIVAN PO SCH ×2 (08:18→19:59)
[2019-01-28] MEDS: ZITHROMAX PO SCH (08:18)
--- NOTE | 2019-01-28 09:40 | EKG Report ---
Test Performed on : 01/27/2019 11:35:58 PM Test Reason : eleveted troponin Blood Pressure : / mmHG Vent. Rate : 067 BPM Atrial Rate : 067 BPM P-R Int : 140 ms QRS Dur : 090 ms QT Int : 402 ms P-R-T Axes : 074 079 -38 degrees QTc Int : 424 ms Normal sinus rhythm. Possible Left atrial enlargement Cannot rule out Inferior infarct (cited on or before 12-AUG-2018) Abnormal ECG When compared with ECG of 26-JAN-2019 23:47, (Unconfirmed) premature ventricular complexes. are no longer present Vent. rate has decreased BY [address] no longer depressed in Anterior leads T wave inversion more evident in Anterior leads Confirmed by Manuel Rosado MD ([id number]) on 02/03/2019 9:39:47 PM
[2019-01-28 10:33] LABS: LYMPHS 2 % (21-51); MONO 2 % (1-9); SEGS 96 % (42-75)
[2019-01-28] MEDS ORDERED: LASIX IV ONE (14:27)
--- NOTE | 2019-01-28 15:06 | CARDIOLOGY CONSULTATION ---
DATE: 01/28/2019 IMPRESSION: 1. Mild nonspecific elevation in troponin without chest discomfort or acute change on ECG. Suspect acute exacerbation of chronic obstructive pulmonary disease with component of cor pulmonale, and significant hypoxemia may have precipitated mild nonspecific elevation in troponin in setting of atherosclerotic coronary artery disease. 2. Severe chronic obstructive pulmonary disease requiring home oxygen. The patient presents with what sounds like exacerbation with associated hypoxemia with oxygen saturation 70% on presentation to the emergency room. 3. Tendency for right-sided congestive heart failure as well as mildly reduced left ventricular systolic function with left ventricular ejection fraction of 45% to 50%. 4. Ischemic heart disease. Last cardiac catheterization study August 2015 noteworthy for significantly elevated left ventricular end-diastolic pressure consistent with diastolic dysfunction, left ventricular ejection fraction of 40% to 50%, mild to moderate calcification of proximal left anterior descending coronary with mild irregularities but no significant stenosis in left anterior descending coronary, 60% stenosis. the first diagonal branch, 20% to 30%. Stenosis in proximal left circumflex coronary artery, occluded small obtuse marginal, and small nondominant right coronary artery with severe stenosis proximally with well- developed collaterals. Medical management felt to be most appropriate. 5. Nicotine addiction. Patient currently vapes. 6. Paroxysmal atrial fibrillation. Patient continues on long-term anticoagulation with warfarin. 7. Previous cerebrovascular accident. 8. Obesity. 9. Hypertension. 10. Obstructive sleep apnea. 11. Renal artery stenosis. Patient is status post previous renal artery stent. RECOMMENDATIONS: 1. Aggressively treat COPD with exacerbation as you are doing. 2. Repeat echocardiography. 3. Diurese with IV Lasix, given neck vein distention and evidence of volume excess. 4. Continue carvedilol. 5. Ultimately patient would benefit from reevaluation of coronary artery disease once she has further improved clinically from the standpoint of her COPD. She normally sees Dr. Conroy and should have follow up with him following discharge. HISTORY: This 58-year-old white female with past history of severe COPD, atherosclerotic coronary disease as outlined above, paroxysmal atrial fibrillation, previous cerebrovascular accident, obesity, hypertension, and obstructive sleep apnea was admitted through the emergency room with shortness of breath and cough. She relates developing shortness of breath and cough productive of modest amounts of clear sputum. Her oxygen had been apparently unhooked. When she arrived in the emergency room by ambulance, she had an oxygen saturation of 70%. There was no chest pain. She was given supplemental oxygen and treated for COPD. She was also placed on BiPAP. She is lethargic initially but came around. She has progressively improved. Initial troponin was normal with follow-up troponin of 0.3 and third troponin of 0.2. She has had no chest pain or any significant ECG changes. She does normally take Lasix daily but has not been taking this since being in the hospital. PAST MEDICAL HISTORY: 1. Severe chronic obstructive pulmonary disease with chronic home oxygen requirement. 2. Paroxysmal atrial fibrillation. 3. Atherosclerotic coronary disease. 4. Previous cerebrovascular accident. 5. Hypertension. 6. Obesity. 7. Gastroesophageal reflux disease. 8. Obstructive sleep apnea. 9. Renal artery disease. Patient is status post previous renal artery stent. 10. Ischemic cardiomyopathy with left ejection fraction of approximately 45%. ALLERGIES: She is allergic to levofloxacin and nonsteroidal anti-inflammatory medications. MEDICATIONS PRIOR TO ADMISSION: As listed. SOCIAL HISTORY: She is . She continues to smoke some cigarettes and also uses a vape device. She is rather vague regarding her alcohol intake. FAMILY HISTORY: Positive for coronary artery disease. REVIEW OF SYSTEMS: Pulmonary: Noteworthy for dyspnea and cough productive of modest amounts of clear sputum. Gastrointestinal: Negative. Constitutional: Negative. Remainder of the review of systems negative/noncontributory beyond history present illness with 14 total systems reviewed. PHYSICAL EXAMINATION: Physical exam reveals an obese middle-aged white female who appears older than stated age in no distress. Blood pressure 115/60, heart rate 64, oxygen saturation 96% on nasal cannula oxygen at 4 L/minute.HEENT: Extraocular movements appear intact. Mucous membranes are moist. Neck is supple. Jugular distention is evident consistent with elevated central venous pressure. Auscultation of the chest reveals a few faint expiratory rhonchi. No rales could be appreciated. Cardiac exam reveals a regular rate and rhythm without appreciable murmur, rub, gallop. Abdomen is soft. Bowel sounds are normal. Extremities are without edema. Neurologic exam reveals her to be alert and fully oriented. Speech is fluent. She moves all 4 extremities equally well. Skin is warm, dry. Psychiatric exam reveals her mood to be appropriate. DIAGNOSTIC STUDIES: A 12 lead EKG obtained 01/26/2019 demonstrates sinus tachycardia, nondiagnostic inferior Q-waves, and mild delay in precordial R-wave progression. No acute ST or T- wave changes are evident. LABORATORY DATA: Includes white blood cell count of 7.74 down from 15.48, hematocrit 32.8, hemoglobin 9.8, platelet count 186,000. Pro-time 35.2, INR 3.3. Sodium 142, potassium 4.7, chloride 104, hematocrit 26, BUN 32, creatinine 0.8, glucose 150. Initial troponin less than 0.01, follow-up troponin 0.310, and third troponin 0.203, initial CPK 29 with follow-up CPK of 111 and 51. cc: Migel Nichols MD
[2019-01-28] MEDS: COUMADIN PO SCH (19:59)
[2019-01-28] MEDS: LIPITOR PO SCH (19:59)
--- NOTE | 2019-01-28 20:12 | PROGRESS NOTE ---
DATE: 01/28/2019 SUBJECTIVE: The patient is much improved this morning. She notes she is feeling better. Denies any chest pain or palpitations. PHYSICAL EXAMINATION: Vital signs: She is afebrile, pulse is improved in the 80s, respiratory 20, BP 119/69. She currently is on nasal cannula. She is off BiPAP. HEENT: Normocephalic. Neck: Supple. Cardiovascular: Regular rate. No murmurs. Chest: Much improved air movement. Decreased wheezing. Good air movement bilaterally. Abdomen: Soft, obese, nondistended. Extremities: Moves all extremities. No edema. Neurologic: No changes. ASSESSMENT: 1. Acute hypoxic respiratory failure. 2. Acute hypercapnic respiratory failure. 3. Paroxysmal atrial fibrillation. 4. Bilateral infiltrates with pneumonia. 5. Chronic obstructive pulmonary disease with exacerbation. 6. Chronic medical noncompliance. 7. Chronic tobacco abuse, currently vaping and probably still smoking as well at home. PLAN: We will continue the patient in the hospital. Her troponin is elevated at 0.3 this morning. I expect that this is due to the to how dreadfully ill she was in the ER. She was unresponsive at that point and severely hypoxic. I also, expect that she is probably taking her oxygen off at home to smoke and certainly continuing to vape at home is probably not in her best interest. We will consult Cardiology. I have personally talked with Dr. Nichols, who will see her this afternoon. I expect her troponin is due to coronary leak and not due to a true myocardial infarction, although, she does have a significant coronary disease with severe vessel disease in the past. The patient has been very recalcitrant to treatment and very noncompliant. She has not been following up. In fact, she and her became quite irate with the nursing staff when she was told that she could not vape in her ICU room. At that point, she stated she was going to leave against medical advice. Hopefully, we have convinced her it is in her best interest to stay. We will not transfer her to the floor as I expected. If she goes to the floor, she is simply going to go out there and vape as the nurses cannot check on her very frequently. However, nicotine is not in her best interest given her severe coronary disease, her recent bout with almost respiratory failure and . We will keep her in the ICU and we will follow. cc: Jermaine Denis MD
[2019-01-29] MEDS: SOLU-MEDROL IV SCH ×3 (03:14→20:55)
[2019-01-29] MEDS: PROTONIX PO SCH (06:16)
[2019-01-29] MEDS: HUMALOG (PARKWAY) SUBQ SCH ×4 (06:16→20:58)
[2019-01-29 06:51] LABS: AGAP 12; ALBUMIN 3.6 g/dL (3.5-5.0); ALKALINE PHOSPHATASE 65 U/L (32-104); BUN 40 mg/dL (8-22); CALCIUM 9.1 mg/dL (8.8-10.2); CHLORIDE 102 mmol/L (98-107); COSMO 298; CREATININE 0.9 mg/dL (0.5-0.9); ESTIMATED GFR > 60; GLUCOSE 158 mg/dL (70-104); GOT 13 U/L (10-30); GPT 16 U/L (10-36); POTASSIUM 4.6 mmol/L (3.5-5.1); SODIUM 143 mmol/L (136-145); TCO2 29 mmol/L (25-35); TOTAL PROTEIN 6.8 g/dL (6.3-8.3)
[2019-01-29 07:30] LABS: INR 3.59; PROTIME 37.5 Seconds (11.0-16.0)
[2019-01-29 07:32] LABS: HEMATOCRIT 35.9 % (37.0-47.0); IMM GRAN# 0.01 X1000 (0.0-0.04); IMM GRAN% 0.2 % (0.0-0.5); LYMPH# 0.31 X1000 (1.2-3.4); LYMPH% 5.4 % (20.5-51.1); MCH 26.1 PG (27-31); MCHC 30.6 g/dL (33-37); MCV 85.3 FL (81-99); MONO# 0.27 X1000 (0.11-0.59); MONO% 4.7 % (1.7-9.3); MPV 12.4 FL (7.4-10.4); NEUT# 5.19 X1000 (1.4-6.5); NEUT% 89.7 % (42.2-75.2); PLT 206 X1000 (130-400); RBC 4.21 XMIL (4.2-5.4); RDW 17.3 % (11.5-14.5); WBC 5.78 X1000 (4.8-10.8)
[2019-01-29] MEDS: DUONEB (A & A) INH SCH ×5 (07:50→23:11)
[2019-01-29] MEDS ORDERED: LASIX PO SCH (09:00)
[2019-01-29] MEDS: ROCEPHIN 1 GM in NS 50 ML IV SCH (09:53)
[2019-01-29 10:38] LABS: ANISOCYTOSIS 1+; LYMPHS 9 % (21-51); MONO 3 % (1-9); SEGS 88 % (42-75)
[2019-01-29] MEDS: KLONOPIN PO SCH ×3 (11:09→17:02)
[2019-01-29] MEDS: ZITHROMAX PO SCH (12:55)
[2019-01-29] MEDS: IMDUR PO SCH (13:01)
[2019-01-29] MEDS: PLAVIX PO SCH (13:01)
[2019-01-29] MEDS: ATIVAN PO SCH ×2 (13:02→20:57)
[2019-01-29] MEDS: COREG PO SCH ×2 (13:02→20:56)
[2019-01-29 13:28] LABS: BLOOD TYPE ARTERIAL; HCO3-(ACT) 31.7 mmoll (20.0-26.0); METHB 0.7 % (0.0-1.5); SAMPLE BLOOD; SAO2 87.7 % (95.0-100.0); THB 11.7 g/dL (11.5-17.4); pH(98.6) 7.44 (7.35-7.45)
[2019-01-29 13:32] LABS: PCO2(98.6) 51 mmHg (35-45)
[2019-01-29 13:33] LABS: PO2(98.6) 43 mmHg (60-100)
[2019-01-29 13:34] LABS: ALLEN TEST YES; MODALITY CANNULA
--- NOTE | 2019-01-29 13:34 | ECHO REPORT ---
ORDER DATE: 01/28/2019 INDICATION: Coronary artery disease, CHF, COPD. FINDINGS: 1. The right atrium appears normal in size. 2. Mild tricuspid regurgitation. RV systolic pressure of 46. 3. Normal RV size with mild reduction in RV systolic function. 4. Trace pulmonic insufficiency. 5. Suggestion of mild left atrial enlargement with a dimension of 4.1 cm. 6. There is moderate calcification of the mitral valve with moderate mitral regurgitation. Suggestion of moderate mitral stenosis with a mean gradient of somewhere between 6.5 and 7 mmHg. The valve area by planimetry is 1.74 cm2. Previous study in August had a valve area of 1.5 and a mean gradient of 7; this does not appear to be significantly different at this point. 7. Normal LV size, end-diastolic dimension of 4 cm. Normal wall thicknesses with a posterior and interventricular septal wall thickness of 1.1 cm each. There is reduction in LV systolic function on the order of 35 to 40 percent. Definity echo contrast was used. Suggestion of possibly some mild inferior hypokinesis, but images were difficult even though Optison contrast was used. 8. Aortic valve opens well. There is no clear evidence of significant stenosis or insufficiency. 9. Aorta appears normal in visualized segments. 10. No pericardial effusion seen. IMPRESSION: 1. Left ventricular systolic function stable from previous study in August 2018 with an ejection fraction estimate at 35 to 40 percent range. 2. Suggestion of moderate mitral stenosis with moderate mitral regurgitation. This appears stable from the study in August 2018. The patient may ultimately benefit from a transesophageal echocardiogram or further evaluations of the mitral valve as some measurements were widely variable on this study. This could possibly be done as an outpatient. 3. Mild reduction in right ventricular systolic function. 4. Mild left atrial enlargement. cc: MD Migel Mejia MD
[2019-01-29] MEDS ORDERED: PROTONIX IV SCH (14:45)
[2019-01-29] MEDS: SODIUM CHLORIDE 0.9% INJ SCH (15:12)
[2019-01-29] MEDS: LASIX IV SCH (15:13)
[2019-01-29 15:37] LABS: UR AMPHETAMINES QUAL NONE DETECTED (NONE DETECT); UR BARBITUATES QUAL NONE DETECTED (NONE DETECT); UR BENZODIAZEPIN QUAL PRESUMPTIVE POSITIVE (NONE DETECT); UR COCAINE QUAL NONE DETECTED (NONE DETECT); UR METHADONE QUAL NONE DETECTED (NONE DETECT); UR METHAMPHETAMINE QUAL NONE DETECTED (NONE DETECT)
[2019-01-29 15:38] LABS: UR CANNABINOIDS QUAL NONE DETECTED (NONE DETECT); UR OPIATES QUAL PRESUMPTIVE POSITIVE (NONE DETECT); UR OXYCODONE QUAL NONE DETECTED (NONE DETECT); UR PCP QUAL NONE DETECTED (NONE DETECT); UR PROPOXYPHENE QUAL NONE DETECTED (NONE DETECT); UR TCA QUAL NONE DETECTED (NONE DETECT)
--- NOTE | 2019-01-29 18:56 | Diag Imaging Result Doc PS360 ---
EXAM: CT HEAD W/O CONTRAST 01/29/2019 HISTORY: AMS TECHNIQUE: This exam was performed using automated exposure control, adjustment of mA or kV according to patient size, and/or use of iterative reconstruction technique. COMMENT: There are calcifications in the vertebral arteries bilaterally. There are calcifications in both internal carotid arteries. There is encephalomalacia in the right frontal lobe and the parietal convexity. There is no evidence of mass effect, bleed, or abnormal extra-axial fluid collection. The visualized paranasal sinuses are clear. The calvarium is intact. Compared to the previous examination of 07/07/2018 there has been no significant change. IMPRESSION: Old ischemic changes on the right. No evidence of acute disease. Electronically signed by Rubén Leahy 01/29/2019 6:54 PM
[2019-01-29 20:34] LABS: ALLEN TEST YES; BE 8.8 mmoll (-3.0-3.0); BLOOD TYPE ARTERIAL; HCO3-(ACT) 31.7 mmoll (20.0-26.0); METHB 0.7 % (0.0-1.5); MODALITY BI PAP; O2(CT) 15.4 mL/dL (15.0-23.0); O2HB 91.3 % (95.0-99.0); PCO2(98.6) 49 mmHg (35-45); PO2(98.6) 61 mmHg (60-100); SAMPLE BLOOD; SAO2 94.2 % (95.0-100.0); pH(98.6) 7.45 (7.35-7.45)
[2019-01-29] MEDS: LIPITOR PO SCH (20:55)
--- NOTE | 2019-01-29 21:19 | PROGRESS NOTE ---
DATE: 01/29/2019 SUBJECTIVE: Patient is difficult to arouse this morning. PHYSICAL EXAMINATION: She is afebrile. Heart rates are improved in the 80s to low 100s. Respiratory 16 to 20, BP 119/69.General: Patient is in no respiratory distress, although she is on BiPAP. She appears to be having good air movement. No current wheezing. No crackles. She is difficult to arouse, but does arouse to painful stimuli, does not stay awake. HEENT: Normocephalic. Neck: Supple. Cardiovascular: Regular rate, irregular rhythm. Chest: Decreased but equal breath sounds. Currently on BiPAP. No wheezing. Abdomen: Soft, nondistended. Extremities: Moves all extremities when stimulated. Neurologic: Unable to assess. ASSESSMENT: 1. Acute hypercapnic respiratory failure. 2. Acute hypoxic respiratory failure. 3. Paroxysmal atrial fibrillation. 4. Bilateral infiltrates. 5. Leukocytosis, actually improving. 6. Chronic obstructive pulmonary disease with exacerbation. 7. Chronic noncompliance. 8. Chronic tobacco abuse. Patient actually has been attempting to vape while in the ICU. In fact, her and her both became somewhat irritated when the staff prevented them from continuing to do this. PLAN: At this point, patient appears to be worse from a mental standpoint. Appears to have more metabolic encephalopathy, I expect due to her hypercapnic respiratory failure. We are going to transfer her to [facility] [place] to have pulmonology assistance and will follow. TIME: 34 minutes spent in total care. cc: Jermaine Denis MD
[2019-01-29 21:51] LABS: ACETAMINOPHEN < 1.2 ug/mL (10-30); SALICYLATES < 3.00 mg/dL (3-10)
[2019-01-30] MEDS: NORCO-5 PO PRN ×2 (01:56→15:33)
[2019-01-30] MEDS: LASIX IV SCH ×2 (03:07→15:17)
[2019-01-30 04:46] LABS: ALLEN TEST YES; BE 7.4 mmoll (-3.0-3.0); BLOOD TYPE ARTERIAL; HCO3-(ACT) 30.7 mmoll (20.0-26.0); METHB 1.3 % (0.0-1.5); O2(CT) 15.8 mL/dL (15.0-23.0); O2HB 95.3 % (95.0-99.0); PCO2(98.6) 40 mmHg (35-45); PO2(98.6) 94 mmHg (60-100); SAMPLE BLOOD; SAO2 98.6 % (95.0-100.0); THB 11.7 g/dL (11.5-17.4)
[2019-01-30 04:48] LABS: MODALITY BI PAP
[2019-01-30] MEDS: SOLU-MEDROL IV SCH ×3 (05:30→20:54)
[2019-01-30] MEDS: HUMALOG (PARKWAY) SUBQ SCH (06:04)
[2019-01-30 06:17] LABS: HEMATOCRIT 36.8 % (37.0-47.0); HEMOGLOBIN 11.5 g/dL (12.0-16.0); IMM GRAN# 0.02 X1000 (0.0-0.04); IMM GRAN% 0.3 % (0.0-0.5); LYMPH% 5.3 % (20.5-51.1); MCHC 31.3 g/dL (33-37); MCV 83.1 FL (81-99); MONO# 0.36 X1000 (0.11-0.59); MONO% 4.8 % (1.7-9.3); MPV 12.4 FL (7.4-10.4); NEUT# 6.72 X1000 (1.4-6.5); NEUT% 89.6 % (42.2-75.2); PLT 221 X1000 (130-400); RBC 4.43 XMIL (4.2-5.4); RDW 17.3 % (11.5-14.5)
[2019-01-30 06:22] LABS: INR 3.69; PROTIME 39.1 Seconds (11.0-16.0)
[2019-01-30 06:33] LABS: ALBUMIN 3.6 g/dL (3.5-5.0); CALCIUM 9.3 mg/dL (8.8-10.2); POTASSIUM 4.4 mmol/L (3.5-5.1); TOTAL BILIRUBIN 0.57 mg/dL (0.20-1.00); TOTAL PROTEIN 7.2 g/dL (6.3-8.3)
--- NOTE | 2019-01-30 07:56 | Diag Imaging Result Doc PS360 ---
CHEST-PORTABLE - 01/30/2019 INDICATION: dyspnea COMPARISON: 01/26/2019 FINDINGS: There is moderate cardiomegaly that appears to have worsened since prior exams. There is pulmonary vascular congestion. There are interstitial infiltrates with curly B lines compatible with pulmonary edema in the lung bases. No large pleural effusion. IMPRESSION: 1. Cardiomegaly that has worsened since prior. 2. Pulmonary vascular congestion and pulmonary edema. Electronically signed by Wan Eddy 01/30/2019 7:54 AM
[2019-01-30] MEDS: DUONEB (A & A) INH SCH ×4 (08:05→20:03)
--- NOTE | 2019-01-30 08:09 | PROGRESS NOTE ---
DATE: 01/30/2019 SUBJECTIVE: The patient is awake and alert this morning. She is now off of the Venturi mask on nasal cannula. She complains of neuropathy in her feet. No acute events noted overnight. OBJECTIVE: Vital Signs: Temperature 98.3 degrees, blood pressure 143/59, heart rate 59, respirations 15, O2 saturations 96% on 4 L nasal cannula, intake 1.4-2.2 L, output 3.2 L. General: This is a chronically ill-appearing elderly female, lying in bed in no acute distress. Head: Normocephalic, atraumatic. Heart: S1, S2, normal bradycardic. Lungs: Equal air entry bilaterally. No wheezing. No rales. No rhonchi. Abdomen: Positive bowel sounds. Soft, obese. Extremities: No edema, no cyanosis, no calf tenderness. Neurologic: The patient is alert and oriented x4. No focal neurologic deficits noted. LABS: White blood cell count 7.5, hemoglobin 11, hematocrit 36, platelets 221. INR 3.6. Sodium 134, potassium 4.4, chloride 91, CO2 29. BUN 40, creatinine 1, glucose 136. A1c is 6. X-RAYS: Chest x-ray shows bilateral infiltrates. ASSESSMENT AND PLAN: 1. Acute hypoxemic and hypercapnic respiratory failure. Improved. The patient is now on nasal cannula. We will continue with supplemental oxygen and antibiotics and diuretic therapy. 2. Pneumonia. Continue with broad-spectrum antibiotic therapy, bronchodilator therapy and supplemental oxygen. 3. Chronic obstructive pulmonary disease exacerbation. Continue with bronchodilator therapy, steroids and supplemental oxygen. 4. Volume overload. The patient is on diuretic therapy. Continue as ordered. Cardiology is following. 5. History of multiple drug overdoses. Aware. 6. Anxiety disorder. Continue on Klonopin. 7. Paroxysmal atrial fibrillation. The patient is rate controlled. Continue on Coreg for rate control. The patient's INR is slightly supratherapeutic. We will hold the warfarin dose for today. 8. Constipation. Will start the patient on laxative therapy. 9. Diabetes mellitus. Will continue on sliding scale insulin. 10. Gastrointestinal prophylaxis. Continue on Protonix. 11. Disposition: We will transfer the patient to the medical floor on telemetry and consult with physical therapy. cc: MD NAHID Flores
[2019-01-30] MEDS ORDERED: ZITHROMAX 500 MG/NS 500 MG/250 ML IVPB IV SCH (09:00)
[2019-01-30] MEDS: ZANAFLEX PO PRN ×2 (09:03→20:54)
[2019-01-30] MEDS: ATIVAN PO SCH ×2 (09:04→20:54)
[2019-01-30] MEDS: COLACE PO SCH ×2 (09:04→20:54)
[2019-01-30] MEDS: PLAVIX PO SCH (09:04)
[2019-01-30] MEDS: KLONOPIN PO SCH ×4 (09:04→22:56)
[2019-01-30] MEDS: IMDUR PO SCH (09:04)
[2019-01-30] MEDS: MIRALAX PO SCH ×2 (09:05→20:53)
[2019-01-30] MEDS: COREG PO SCH ×2 (09:05→20:55)
[2019-01-30] MEDS: ROCEPHIN 1 GM in NS 50 ML IV SCH (09:05)
[2019-01-30] MEDS: ZITHROMAX 500 MG/NS 500 MG/250 ML IVPB IV SCH (12:14)
[2019-01-30] MEDS: HUMALOG SUBQ SCH ×3 (12:14→21:22)
[2019-01-30] MEDS ORDERED: NEXIUM IV SCH (15:00)
[2019-01-30] MEDS: SODIUM CHLORIDE 0.9% INJ SCH (15:17)
--- NOTE | 2019-01-30 18:19 | CONSULTATION ---
DATE OF CONSULTATION: 01/30/2019 REQUESTING PROVIDER: Dr. Josephine Salgado. REASON FOR CONSULTATION: Acute respiratory failure. HISTORY OF PRESENT ILLNESS: This is a 58-year-old female with a medical history of COPD with ongoing tobacco abuse, congestive heart failure, chronic hypoxemic hypercapnic respiratory failure, obstructive sleep apnea, multiple previous intubations and mechanical ventilations, mitral valve disease, atrial fibrillation, diabetes, previous stroke, hypertension, dyslipidemia, gastroesophageal reflux disease, and obesity. She is well known to our facility. She presented to the [place] ER on 01/26/2019 with shortness of breath and generalized back pain after a fall at home. Initial workup in the ER revealed acute on chronic hypoxic respiratory failure, hypercapnic respiratory failure, bilateral infiltrates and pneumonia, and COPD exacerbation. She has been admitted for further evaluation and management. Apparently, despite ongoing treatment, the patient remains lethargic with worsened metabolic encephalopathy. She was transferred to our facility to have pulmonology assistance yesterday. At the time of my examination, the patient is sitting on the ICU bed with no acute distress noted. She is very pleasant and cooperative. She is on oral nasal cannula at 4 L/minute. She reports she is feeling a lot better. She complains of severe neuropathy on bilateral lower extremities. She has chronic shortness of breath, cough mainly nonproductive, and chronic back pain. She reports no wheezing, fever, chill, chest pain, palpitation, bowel habit change, or recent weight change. She did use BiPAP last night and she tolerates well. PAST MEDICAL AND SURGICAL HISTORY: 1. COPD with ongoing tobacco use. 2. Congestive heart failure. Left ventricular dysfunction with an ejection fraction of 30 percent to 35 percent. 3. Chronic hypoxic respiratory failure secondary to COPD. on home oxygen at 3 L mainly used at bedtime. 4. Chronic hypercapnic respiratory failure secondary to obstructive sleep apnea and COPD. 5. Obstructive sleep apnea. The patient on home CPAP therapy. She reports that she stopped using CPAP since last February as she was told her oxygen from the lab was too high at that time. She also reports that her increased her oxygen flow rate from 3 L/minute to 5 L/minute at bedtime as her thinks higher oxygen better. 6. Mitral valve disease. 7. Paroxysmal atrial fibrillation on chronic anticoagulation. 8. Diabetes mellitus type 2. 9. History of previous stroke with residual left-sided weakness. 10. Hypertension. 11. Dyslipidemia. 12. Gastroesophageal reflux disease. 13. Obesity. 14. Renal artery disease status post stent placement. 15. Status post carotid endarterectomy. 16. Status post cholecystectomy. 17. Status post appendicectomy. 18. Anxiety. 19. Chronic back pain. SOCIAL HISTORY: The patient is and lives at home. She appears to have dysfunctional family dynamics. She reports she is trying to quit smoking with nicotine patch and vipe, but apparently her is a heavy smoker and smokes around the house at times. She also has an indoor dog as a pet for 4 years. She drinks alcohol, but she is unclear how much she drinks. She reports no illicit drug use. ALLERGIES: Levofloxacin and NSAIDs. REVIEW OF SYSTEMS: A 10-point review of systems was conducted and the pertinent is listed within the HPI, otherwise noncontributory. PHYSICAL EXAMINATION: Vital Signs: Temperature 98.2 degrees, blood pressure 164/90, pulse rate 67, respiratory rate 18, oxygen saturation 99% on nasal cannula at 4 L/minute. General: Obese. Sitting on bed with no acute distress. Very pleasant and cooperative. HEENT: Atraumatic, normocephalic. Trachea midline. Mucosa pink and slightly dry. Respiratory: Respirations even and unlabored. No accessory muscle use. No extra breathing work. Clear to auscultation with diminished breathing sounds bibasilarly. Cardiovascular: Regular rate and rhythm. Gastrointestinal: Soft, nontender, obese. Bowel sounds normoactive in all 4 quadrants. Extremities: No pedal edema. No cyanosis. No clubbing. Dorsalis pedis 2+ bilaterally. Neurologic: Alert and oriented x3. Speech fluent. Follows commands. Left- sided weakness. LAB DATA: White blood cells 7.50, hemoglobin 11.5, hematocrit 36.8, platelet 221,000. Sodium 134, potassium 4.4, chloride 91, carbon dioxide 29, BUN 40, creatinine 1.0, glucose 136. ProBNP 5604. ABG: pH 7.50, pCO2 of 40, pO2 of 94, HC03 of 30.7, base excess 7.4, and oxyhemoglobin 95.3. IMAGING DATA: Chest x-ray revealed worsened cardiomegaly, pulmonary vascular congestion, and pulmonary edema. ASSESSMENT: This is a 58-year-old female with multiple medical history, including chronic obstructive pulmonary disease, congestive heart failure, chronic hypoxemic and hypercapnic respiratory failure, obstructive sleep apnea, mitral valve disease, atrial fibrillation, diabetes, previous stroke, hypertension, dyslipidemia, gastroesophageal reflux disease, anxiety, and chronic back pain. She has been admitted since 01/26/2019 at [place] with acute on chronic hypoxic respiratory failure, hypercapnic respiratory failure, bilateral infiltrates and pneumonia, and chronic obstructive pulmonary disease exacerbation. She was transferred to our facility yesterday for worsened metabolic encephalopathy. 1. Acute on chronic hypoxic and hypercapnic respiratory failure with chronic obstructive pulmonary disease and obstructive sleep apnea. 2. Congestive heart failure with exacerbation. 3. Pneumonia. 4. Chronic obstructive pulmonary disease. 5. Obstructive sleep apnea. PLAN: 1. Continue supplemental oxygen. Continue BiPAP at bedtime and as needed. 2. Continue antibiotics, steroid, and bronchodilators. 3. Follow up with ABG, CBC, CMP, and chest x-ray. 4. Educate the importance of smoking cessation. 5. Educate the patient on the importance of CPAP therapy and encourage patient to continue it at home. 6. Continue GI and DVT prophylaxis. Thank you for the courtesy of this consult. Dictated by RALPH Cook for Ariela Rivas MD cc: RALPH Cook MD [facility]
[2019-01-30] MEDS: LIPITOR PO SCH (20:53)
[2019-01-31] MEDS: DUONEB (A & A) INH SCH ×7 (00:06→23:13)
[2019-01-31] MEDS: SOLU-MEDROL IV SCH ×2 (05:53→12:04)
[2019-01-31] MEDS: LASIX IV SCH ×2 (05:54→16:03)
[2019-01-31 06:44] LABS: INR 2.96; PROTIME 32.9 Seconds (11.0-16.0)
[2019-01-31 06:58] LABS: HEMATOCRIT 36.9 % (37.0-47.0); HEMOGLOBIN 11.5 g/dL (12.0-16.0); IMM GRAN# 0.03 X1000 (0.0-0.04); IMM GRAN% 0.5 % (0.0-0.5); LYMPH# 0.39 X1000 (1.2-3.4); LYMPH% 6.5 % (20.5-51.1); MCH 25.7 PG (27-31); MCHC 31.2 g/dL (33-37); MCV 82.6 FL (81-99); MONO# 0.38 X1000 (0.11-0.59); MONO% 6.3 % (1.7-9.3); MPV 12.2 FL (7.4-10.4); NEUT# 5.23 X1000 (1.4-6.5); NEUT% 86.7 % (42.2-75.2); PLT 234 X1000 (130-400); RBC 4.47 XMIL (4.2-5.4); RDW 16.9 % (11.5-14.5); WBC 6.03 X1000 (4.8-10.8)
[2019-01-31] MEDS: HUMALOG SUBQ SCH ×4 (07:06→22:00)
--- NOTE | 2019-01-31 07:15 | Diag Imaging Result Doc PS360 ---
EXAM: CHEST-1 VIEW 01/31/2019 HISTORY: SOB TECHNIQUE: AP portable at 0654. COMMENT: Compared to the previous study of 01/30/2019 the heart size has diminished as has the pulmonary vascularity and interstitial opacities bilaterally. IMPRESSION: Improved congestive heart failure. Electronically signed by Rubén Leahy 01/31/2019 7:12 AM
[2019-01-31 07:31] LABS: LYMPHS 10 % (21-51); MONO 8 % (1-9); SEGS 82 % (42-75)
[2019-01-31 07:37] LABS: ALB/GLOB RATIO 1.2; ALBUMIN 3.6 g/dL (3.5-5.0); CALCIUM 9.1 mg/dL (8.8-10.2); CREATININE 1.1 mg/dL (0.5-0.9); POTASSIUM 4.4 mmol/L (3.5-5.1); TOTAL BILIRUBIN 0.48 mg/dL (0.20-1.00); TOTAL PROTEIN 6.7 g/dL (6.3-8.3)
[2019-01-31] MEDS: KLONOPIN PO SCH ×3 (08:46→16:03)
[2019-01-31] MEDS: ATIVAN PO SCH ×2 (08:46→21:11)
[2019-01-31] MEDS: ROCEPHIN 1 GM in NS 50 ML IV SCH (08:47)
[2019-01-31] MEDS: COREG PO SCH ×2 (08:47→21:11)
[2019-01-31] MEDS: PLAVIX PO SCH (08:47)
[2019-01-31] MEDS: IMDUR PO SCH (08:47)
[2019-01-31] MEDS: MIRALAX PO SCH (08:49)
[2019-01-31] MEDS: MYCOSTATIN POWDER TOP SCH ×2 (08:49→21:14)
[2019-01-31] MEDS: COLACE PO SCH (08:50)
[2019-01-31] MEDS: ZANAFLEX PO PRN ×3 (08:54→23:07)
[2019-01-31] MEDS: NORCO-5 PO PRN ×2 (12:04→23:06)
[2019-01-31] MEDS: ZITHROMAX 500 MG/NS 500 MG/250 ML IVPB IV SCH (12:04)
--- NOTE | 2019-01-31 16:37 | PROGRESS NOTE ---
DATE: 01/31/2019 SUBJECTIVE: The patient states that she feels a lot better. She reports that her shortness of breath has improved. OBJECTIVE: Vital Signs: Temperature 97.9 degrees, blood pressure 133/72, heart rate 80, respirations 15. O2 saturation is 100% on 3.5 L nasal cannula. General: This is a chronically ill-appearing, morbidly obese female lying in bed in no acute distress. Heart: S1, S2 normal. Regular rate and rhythm. Lungs: Equal air entry bilaterally. No wheezing. No rales. No rhonchi. Abdomen: Positive bowel sounds. Soft, nontender, nondistended. Extremities: No edema, no cyanosis. Neurologic: The patient is alert and oriented x3. LABS: Reviewed. ASSESSMENT AND PLAN: 1. Acute hypoxemic and hypercapnic respiratory failure. Improved. 2. Pneumonia. Continue with broad-spectrum antibiotics, bronchodilator therapy, and supplemental oxygen. 3. Chronic obstructive pulmonary disease exacerbation. Improved. Will transition to patient's prednisone. Continue with bronchodilator therapy. 4. Volume overload. The chest x-ray done today shows improvement. Continue with Lasix. 5. History of multiple drug overdose. Aware. 6. Paroxysmal atrial fibrillation. The patient is rate controlled. Continue on Coreg. We will restart the warfarin tomorrow. 7. Anxiety disorder. Continue on Klonopin. 8. Constipation. Resolved. 9. Prediabetes. Continue with sliding scale insulin. The patient is on steroid therapy at this time. 10. Gastrointestinal prophylaxis. Continue on Protonix. 11. Disposition. The patient will be discharged home once medically stable. cc: Josephine Salgado MD [facility]
[2019-01-31] MEDS: LIPITOR PO SCH (21:10)
[2019-02-01] MEDS: LASIX IV SCH (05:50)
[2019-02-01] MEDS: LOMOTIL PO PRN (06:39)
[2019-02-01 06:44] LABS: CREATININE 1.1 mg/dL (0.5-0.9); POTASSIUM 4.3 mmol/L (3.5-5.1)
[2019-02-01 06:45] LABS: ALB/GLOB RATIO 1.2; ALBUMIN 3.8 g/dL (3.5-5.0); TOTAL BILIRUBIN 0.42 mg/dL (0.20-1.00)
[2019-02-01 06:52] LABS: HEMATOCRIT 38.9 % (37.0-47.0); HEMOGLOBIN 12.1 g/dL (12.0-16.0); MCH 26.5 PG (27-31); MCHC 31.1 g/dL (33-37); MCV 85.1 FL (81-99); MPV 12.5 FL (7.4-10.4); RBC 4.57 XMIL (4.2-5.4); RDW 17.1 % (11.5-14.5); WBC 10.19 X1000 (4.8-10.8)
[2019-02-01] MEDS: HUMALOG SUBQ SCH (06:57)
--- NOTE | 2019-02-01 07:03 | Diag Imaging Result Doc PS360 ---
CHEST-PORTABLE - 02/01/2019 INDICATION: dyspnea COMPARISON: 01/31/2019 FINDINGS: Heart size is normal. Stable pulmonary vascular congestion. There is no change in the ill-defined interstitial markings in the lung bases consistent with pulmonary edema. However this has improved since 01/30/2019. No large effusions. IMPRESSION: No change from prior. Electronically signed by Wan Eddy 02/01/2019 7:01 AM
[2019-02-01 07:08] LABS: INR 1.76; PROTIME 21.9 Seconds (11.0-16.0)
[2019-02-01 07:32] VITALS: BP 112/93
[2019-02-01] MEDS: DUONEB (A & A) INH SCH (08:10)
[2019-02-01] MEDS ORDERED: PREDNISONE PO SCH (09:00)
[2019-02-01] MEDS: NORCO-5 PO PRN (09:26)
[2019-02-01 10:55] LABS: ALLEN TEST YES; BE 13.9 mmoll (-3.0-3.0); BLOOD TYPE ARTERIAL; HCO3-(ACT) 35.6 mmoll (20.0-26.0); O2(CT) 17.1 mL/dL (15.0-23.0); O2HB 92.6 % (95.0-99.0); PCO2(98.6) 42 mmHg (35-45); PO2(98.6) 66 mmHg (60-100); SAMPLE BLOOD; SAO2 96.3 % (95.0-100.0); THB 13.1 g/dL (11.5-17.4)
[2019-02-01 10:57] LABS: MODALITY ROOM AIR; pH(98.6) 7.56 (7.35-7.45)
[2019-02-01] MEDS ORDERED: COUMADIN PO SCH (21:00)
== END 2019-02-01 11:33 | disposition home or self-care (01) | DRG 189 ==
LOC: P.ED 02:09 → SUATTDRO 06:04 → P.ICU 06:04 → ICU 01-29 17:27 → 4N 01-30 10:18
PROVIDERS: ATTEND Internal Medicine
CPT/HCPCS: 51702; 70450; 71010; 71045; 72128; 72131; 80048; 80053; 80104; 80196; 80301; 80305; 80307; 80324; 80329; 81001; 82003; 82550; 82805; 82948; 83036; 83735; 83880; 84443; 84484; 85025; 85027; 85610; 85730; 87040; 87088; 87324; 87449; 93005; 93010; 93306; 94640; 94660; 94761; 94762; 94799; 96374; 96375; 97163; 99285; 99291; A9270; C8929; C9113; G0431; G0434; G0477; G0480; G6038; G6039; J0456; J0696; J1815; J1940; J2920; J2930; Q9957; S0164; XXXXX

== ENCOUNTER 2019-03-25 17:16 | Inpatient (IN) ==
[2019-03-25] MEDS ORDERED: DUONEB (A & A) INH ONE (17:34)
[2019-03-25 17:39] LABS: ALLEN TEST YES; BE 7.9 mmoll (-3.0-3.0); BLOOD TYPE ARTERIAL; HCO3-(ACT) 31.1 mmoll (20.0-26.0); METHB 0.6 % (0.0-1.5); O2(CT) 14.3 mL/dL (15.0-23.0); O2HB 95.4 % (95.0-99.0); PO2(98.6) 108 mmHg (60-100); SAMPLE BLOOD; SAO2 99.1 % (95.0-100.0); THB 10.5 g/dL (11.5-17.4); pH(98.6) 7.36 (7.35-7.45)
[2019-03-25 17:40] LABS: PCO2(98.6) 62 mmHg (35-45)
[2019-03-25 17:41] LABS: MODALITY BI PAP
--- NOTE | 2019-03-25 17:45 | EKG Report ---
Test Performed on : 03/25/2019 5:21:59 PM Test Reason : SOB Blood Pressure : / mmHG Vent. Rate : 074 BPM Atrial Rate : 074 BPM P-R Int : 144 ms QRS Dur : 098 ms QT Int : 422 ms P-R-T Axes : 084 085 -34 degrees QTc Int : 468 ms Sinus rhythm. with occasional premature ventricular complexes. Possible Left atrial enlargement Possible Inferior infarct (cited on or before 12-AUG-2018) Anterolateral infarct (cited on or before 13-AUG-2018) Abnormal ECG When compared with ECG of 21-FEB-2019 18:02, (Unconfirmed) premature ventricular complexes. are now present Questionable change in initial forces of Anterior leads Unconfirmed Result
--- NOTE | 2019-03-25 17:52 | Diag Imaging Result Doc PS360 ---
EXAM: CHEST-1 VIEW INDICATION: sob TECHNIQUE: One view COMPARISON: 02/21/2019 FINDINGS: There are bilateral infiltrates with a basilar predominance that appear predominantly interstitial suggesting edema most likely. A component of pneumonia is possible in the right clinical scenario. There is no discrete pleural fluid collection or pneumothorax. The cardiac silhouette is unremarkable. IMPRESSION: Bibasilar infiltrates most compatible with mild pulmonary edema as described. Electronically signed by Jose Escoto 03/25/2019 5:50 PM
[2019-03-25 18:04] LABS: BASO# 0.04 X1000 (0.0-0.2); BASO% 0.4 % (0.0-0.8); EOS# 0.16 X1000 (0.0-0.7); EOS% 1.5 % (0.0-10.0); HEMATOCRIT 36.6 % (37.0-47.0); HEMOGLOBIN 10.9 g/dL (12.0-16.0); IMM GRAN# 0.02 X1000 (0.0-0.04); IMM GRAN% 0.2 % (0.0-0.5); LYMPH# 1.08 X1000 (1.2-3.4); LYMPH% 9.9 % (20.5-51.1); MCH 25.3 PG (27-31); MCHC 29.8 g/dL (33-37); MCV 84.9 FL (81-99); MONO# 0.73 X1000 (0.11-0.59); MONO% 6.7 % (1.7-9.3); MPV 11.8 FL (7.4-10.4); NEUT# 8.83 X1000 (1.4-6.5); NEUT% 81.3 % (42.2-75.2); PLT 272 X1000 (130-400); RBC 4.31 XMIL (4.2-5.4); RDW 18.8 % (11.5-14.5); WBC 10.86 X1000 (4.8-10.8)
[2019-03-25 18:29] LABS: AGAP 15; ALB/GLOB RATIO 0.9; ALBUMIN 3.3 g/dL (3.5-5.0); ALKALINE PHOSPHATASE 90 U/L (32-104); BUN 13 mg/dL (8-22); CALCIUM 8.8 mg/dL (8.8-10.2); CHLORIDE 96 mmol/L (98-107); COSMO 284; CREATININE 0.7 mg/dL (0.5-0.9); ESTIMATED GFR > 60; GLUCOSE 219 mg/dL (70-104); GOT 25 U/L (10-30); GPT 12 U/L (10-36); POTASSIUM 4.6 mmol/L (3.5-5.1); SODIUM 139 mmol/L (136-145); TCO2 28 mmol/L (25-35); TOTAL BILIRUBIN 0.76 mg/dL (0.20-1.00)
[2019-03-25 19:01] LABS: INR 2.76
[2019-03-25 19:06] LABS: ALLEN TEST YES; BE 9.4 mmoll (-3.0-3.0); BLOOD TYPE ARTERIAL; HCO3-(ACT) 32.3 mmoll (20.0-26.0); METHB 0.5 % (0.0-1.5); O2HB 96.6 % (95.0-99.0); PO2(98.6) 198 mmHg (60-100); SAMPLE BLOOD; SAO2 99.7 % (95.0-100.0); SRATE 16 BPM; pH(98.6) 7.37 (7.35-7.45)
[2019-03-25 19:07] LABS: MODALITY BI PAP
[2019-03-25 19:08] LABS: PCO2(98.6) 63 mmHg (35-45)
[2019-03-25] MEDS ORDERED: LASIX IV ONE (19:27)
--- NOTE | 2019-03-25 19:38 | PROVIDER DOCUMENTATION ---
HPI-Respiratory General - General Chief Complaint: Shortness of Breath Stated Complaint: RESPIRTORY DISTRESS Time Seen by Provider: 03/25/19 17:26 Source: family, EMS Allergies/Adverse Reactions: Patient Allergies Allergy/AdvReac Type Severity Reaction Status Date / Time levofloxacin [From Levaquin] Allergy Intermediate RASH Verified 07/07/18 07:44 NSAIDS (Non-Steroidal Allergy Unknown Unknown Verified 07/07/18 07:44 Anti-Inflamma Home Medications: Home Medication List Medication Instructions Recorded Confirmed Last Taken Type Clopidogrel Bisulfate [Plavix] 75 mg PO DAILY 03/22/18 03/25/19 07/06/18 History Pantoprazole [Protonix] 40 mg PO DAILY 10/09/18 03/25/19 Unknown History Albuterol Sulfate Inhaler 2 puff INH Q6H PRN PRN #1 inhaler 10/20/18 03/25/19 Unknown Rx [Ventolin Hfa] Atorvastatin Calcium 80 mg PO DAILY 12/11/18 03/25/19 Unknown History Clonazepam 0.5 mg PO TID 12/11/18 03/25/19 Unknown History Furosemide 80 mg PO DAILY 12/11/18 03/25/19 Unknown History Albuterol 2.5MG/Ipratrop 0.5MG 3 ml INH Q4H PRN PRN #90 neb 12/12/18 03/25/19 Unknown Rx [Duoneb (A & A)] Isosorbide Mononitrate [Isosorbide 1 tab PO DAILY 01/05/19 03/25/19 Unknown History Mononitrate ER] Warfarin Sodium 5 mg PO DAILY 01/06/19 03/25/19 Unknown History Carvedilol [Coreg] 12.5 mg PO QPM 01/27/19 03/25/19 Unknown History Tizanidine HCl [Zanaflex] 4 mg PO BID PRN 01/27/19 03/25/19 Unknown History Methylprednisolone [Medrol Dosepak] 4 mg PO DIRECTED #1 pkg 02/01/19 03/25/19 Unknown Rx Prednisone 10 mg PO DAILY #21 tab 02/21/19 03/25/19 Unknown Rx - History of Present Illness-Resp Nature of Presenting Problem: 58 year old lady with h/o COPD, RF, CHF, NV x3, CVA x 2, Afib, pneumonia, brought in by [employer] for sob. Her oxygen saturation decreased to the 80s and was place on cpap which was changed to bipap here in the ER with improved of oxygen sat to the 90s. later reveals that patient has been having progressive dyspnea since yesterday which got worse today. Patient improved on bipap and was later able to report a limited h/o of cough which started yesterday and progressive sob. Denies calf pain Timing: reports: still present Review of Systems - Adult - REVIEW OF SYSTEMS - ADULT Constitutional: reports: no symptoms reported Eyes: reports: no symptoms reported Ears, Nose, Mouth & Throat: reports: no symptoms reported Cardiovascular: reports: see HPI Respiratory: reports: see HPI Gastrointestinal: reports: no symptoms reported Musculoskeletal: reports: bone pain, back pain Integumentary: reports: no symptoms reported Neurological: reports: no symptoms reported Psychiatric: reports: no symptoms reported Endocrine: reports: no symptoms reported Hematologic/Lymphatic: reports: no symptoms reported Allergic/Immunologic: reports: no symptoms reported Past History - Adult - PAST MEDICAL HISTORY-ADULT Review of Records: reports: Nursing Assessment Review, Medications Reviewed, Social history reviewed & non-contributory. Major Childhood Illnesses: reports: denies history Cardiovascular: reports: A-Fib, CAD, CHF, hyperlipidemia, NV (2 to 3x) Respiratory: reports: COPD, pneumonia (was treated last hospitalization), other (hx of respiratory failure, hypoxia, hypercarbia) Gastrointestinal: reports: GERD Obstetrical/Gynecological: reports: denies history Genitourinary: reports: denies history Musculoskeletal: reports: chronic pain Neurological: reports: CVA (x2 with complete neurologic recovery) Psychiatric: reports: anxiety Endocrine/Immune: reports: denies history Other Conditions: reports: denies history - PRIOR SURGERIES/PROCEDURES Surgical/Procedure History: reports: other, appendectomy, cholecystectomy - PRIOR HOSPITALIZATIONS Prior Hospitalizations: reports: for similar symptoms - IMMUNIZATION STATUS Childhood Immunizations: See Nurse Assessment Flu Vaccine: See Nurse Assessment - FAMILY HISTORY Family History: reviewed, not pertinent - SOCIAL HISTORY Smoking: other (smoked ciggerate x 30yrs. Quit 8 months ago) Substance Use: opiates (on norco for back and leg pain) Alcohol Use Frequency: never Living Situation: family Physical Exam-General - CONSTITUTIONAL General Appearance: moderate distress - HEAD, EARS, NOSE, MOUTH & THROAT HENMT: normocephalic/atraumatic - NECK Neck: non-tender, full range of motion, supple - RESPIRATORY Respiratory: chest non-tender, respiratory distress (with decreased air entry) - CARDIOVASCULAR Cardiovascular: regular rate, rhythm, other (leg edema) - GASTROINTESTINAL (ABDOMEN) Abdominal Exam: normal bowel sounds, non tender - MUSCULOSKELETAL Extremity: normal range of motion - SKIN Integumentary: normal color - NEUROLOGIC Neurologic: other (able to move/lift up both upper and lower extremities) - PSYCHIATRIC Psych/Mental Status: oriented x 3 Progress - PLAN OF CARE/RESULTS Progress/Plan/Lab Results: Vital Signs - 8 hr 03/25/19 17:19 03/25/19 17:21 03/25/19 17:25 Temperature Pulse Rate 76 74 Respiratory Rate Blood Pressure 114/55 O2 Sat by Pulse Oximetry 94 L 95 97 03/25/19 17:30 03/25/19 17:31 03/25/19 17:42 Temperature 97.5 F L Pulse Rate 79 71 74 Respiratory Rate 25 H 28 H Blood Pressure 104/65 114/55 O2 Sat by Pulse Oximetry 98 98 95 03/25/19 17:45 03/25/19 17:48 03/25/19 18:00 Temperature Pulse Rate 70 71 71 Respiratory Rate 22 24 Blood Pressure O2 Sat by Pulse Oximetry 100 99 99 03/25/19 18:01 03/25/19 18:15 03/25/19 18:30 Temperature Pulse Rate 72 73 75 Respiratory Rate 22 19 Blood Pressure 103/60 O2 Sat by Pulse Oximetry 99 100 100 03/25/19 18:45 03/25/19 19:00 03/25/19 19:01 Temperature Pulse Rate 72 70 69 Respiratory Rate 21 15 17 Blood Pressure 108/66 O2 Sat by Pulse Oximetry 100 100 100 03/25/19 19:15 03/25/19 19:30 03/25/19 19:31 Temperature Pulse Rate 67 68 67 Respiratory Rate 23 22 Blood Pressure 120/57 O2 Sat by Pulse Oximetry 100 100 100 03/25/19 19:45 03/25/19 20:00 03/25/19 20:01 Temperature Pulse Rate 74 71 69 Respiratory Rate 24 Blood Pressure 117/62 O2 Sat by Pulse Oximetry 100 100 100 03/25/19 20:15 03/25/19 20:30 03/25/19 20:32 Temperature Pulse Rate 77 74 76 Respiratory Rate 22 23 22 Blood Pressure 133/79 O2 Sat by Pulse Oximetry 100 99 99 03/25/19 20:38 03/25/19 20:45 03/25/19 21:14 Temperature Pulse Rate 74 75 84 Respiratory Rate 19 23 19 Blood Pressure 133/79 113/65 O2 Sat by Pulse Oximetry 98 99 100 03/25/19 21:16 03/25/19 21:30 03/25/19 21:32 Temperature Pulse Rate 83 79 Respiratory Rate 21 19 18 Blood Pressure 121/75 O2 Sat by Pulse Oximetry 100 98 03/25/19 21:45 03/25/19 22:00 03/25/19 22:03 Temperature Pulse Rate 75 78 81 Respiratory Rate 20 23 15 Blood Pressure 125/66 O2 Sat by Pulse Oximetry 97 99 99 03/25/19 23:18 Temperature Pulse Rate 76 Respiratory Rate 21 Blood Pressure 113/44 O2 Sat by Pulse Oximetry 97 Laboratory Results - last 24 hr 03/25/19 03/25/19 03/25/19 17:03 17:29 17:30 WBC 10.86 H RBC 4.31 Hgb 10.9 L Hct 36.6 L MCV 84.9 MCH 25.3 L MCHC 29.8 L RDW Std Deviation 18.8 H Plt Count 272 MPV 11.8 H Immature Gran % (Auto) 0.2 Neut % (Auto) 81.3 H Lymph % (Auto) 9.[address] [place] % (Auto) 6.7 Eos % (Auto) 1.5 Baso % (Auto) 0.4 Immature Gran # (Auto) 0.02 Neut # (Auto) 8.83 H Lymph # (Auto) 1.[address] [place] # (Auto) 0.73 H Eos # (Auto) 0.16 Baso # (Auto) 0.04 PT INR D-Dimer, Quantitative Specimen Type ARTERIAL Sample Site R RADIAL pH 7.36 pCO2 62 H* pO2 108 H HCO3 31.1 H Base Excess 7.9 H Oxyhemoglobin 95.4 ABG O2 Sat (Calculated) 14.3 L ABG O2 Saturation 99.1 ABG Carboxyhemoglobin 3.20 H ABG Methemoglobin 0.6 Kirk Test YES A-a O2 Difference 528.0 Total Hemoglobin 10.5 L Lactate 1.30 Blood Gas Modality BI PAP Spontaneous Rate FiO2 % 100.0 Inspiratory BiPAP 18.0 Expiratory BiPAP 6.0 Sodium Potassium Chloride Carbon Dioxide Anion Gap BUN Creatinine Estimated GFR/1.73 m2 BUN/Creatinine Ratio Glucose Calculated Osmolality Calcium Total Bilirubin AST ALT Alkaline Phosphatase Troponin T < 0.010 Bff-B-Njrzigwrwor Pept Total Protein Albumin Globulin Albumin/Globulin Ratio 03/25/19 03/25/19 03/25/19 17:30 17:30 17:30 WBC RBC Hgb Hct MCV MCH MCHC RDW Std Deviation Plt Count MPV Immature Gran % (Auto) Neut % (Auto) Lymph % (Auto) [place] % (Auto) Eos % (Auto) Baso % (Auto) Immature Gran # (Auto) Neut # (Auto) Lymph # (Auto) [place] # (Auto) Eos # (Auto) Baso # (Auto) PT INR D-Dimer, Quantitative 0.91 H Specimen Type Sample Site pH pCO2 pO2 HCO3 Base Excess Oxyhemoglobin ABG O2 Sat (Calculated) ABG O2 Saturation ABG Carboxyhemoglobin ABG Methemoglobin Kirk Test A-a O2 Difference Total Hemoglobin Lactate Blood Gas Modality Spontaneous Rate FiO2 % Inspiratory BiPAP Expiratory BiPAP Sodium 139 Potassium 4.6 Chloride 96 L Carbon Dioxide 28 Anion Gap 15 BUN 13 Creatinine 0.7 Estimated GFR/1.73 m2 > 60 BUN/Creatinine Ratio 19 Glucose 219 H Calculated Osmolality 284 Calcium 8.8 Total Bilirubin 0.76 AST 25 ALT 12 Alkaline Phosphatase 90 Troponin T Kuw-U-Xddntzwbnlz Pept 6191 H Total Protein 7.0 Albumin 3.3 L Globulin 3.7 Albumin/Globulin Ratio 0.9 03/25/19 03/25/19 17:30 18:44 WBC RBC Hgb Hct MCV MCH MCHC RDW Std Deviation Plt Count MPV Immature Gran % (Auto) Neut % (Auto) Lymph % (Auto) [place] % (Auto) Eos % (Auto) Baso % (Auto) Immature Gran # (Auto) Neut # (Auto) Lymph # (Auto) [place] # (Auto) Eos # (Auto) Baso # (Auto) PT 30.0 H INR 2.76 D-Dimer, Quantitative Specimen Type ARTERIAL Sample Site R RADIAL pH 7.37 pCO2 63 H* pO2 198 H HCO3 32.3 H Base Excess 9.4 H Oxyhemoglobin 96.6 ABG O2 Sat (Calculated) 14.0 L ABG O2 Saturation 99.7 ABG Carboxyhemoglobin 2.60 H ABG Methemoglobin 0.5 Kirk Test YES A-a O2 Difference 365.0 Total Hemoglobin 10.0 L Lactate 0.60 Blood Gas Modality BI PAP Spontaneous Rate 16 FiO2 % 90.0 Inspiratory BiPAP 18.0 Expiratory BiPAP 6.0 Sodium Potassium Chloride Carbon Dioxide Anion Gap BUN Creatinine Estimated GFR/1.73 m2 BUN/Creatinine Ratio Glucose Calculated Osmolality Calcium Total Bilirubin AST ALT Alkaline Phosphatase Troponin T Edu-J-Vyzyvwchfkz Pept Total Protein Albumin Globulin Albumin/Globulin Ratio Orders Category Date Time Status CHEST-1 VIEW [RAD] Stat Exams 03/25/19 17:29 Completed CTA [CT ANGIOGRM PULMONARY ARTERIES] [CT] Stat Exams 03/25/19 18:36 Completed ABG [RESP] Routine Lab 03/25/19 18:44 Completed BLOOD CULTURE [BLDCUL] Stat Lab 03/25/19 17:29 Results Blood Gas [ABG] [RESP] Routine Lab 03/25/19 17:29 Completed CBC WITH ELECTRONIC DIFF [HEME] Stat Lab 03/25/19 17:30 Completed COMPREHENSIVE METABOLIC PANEL [CHEM] Stat Lab 03/25/19 17:30 Completed D-DIMER [COAG] Stat Lab 03/25/19 17:30 Completed PRO B-NATRIURETIC PEPTIDE Stat Lab 03/25/19 17:30 Completed PROTIME WITH INR [COAG] Stat Lab 03/25/19 17:30 Completed TROPONIN T Stat Lab 03/25/19 17:03 Received 0.9% Sodium Chloride Inj [Ns] 250 ml Med 03/25/19 22:40 Discontinued IV Wide Open mls/hr Albuterol 2.5MG/Ipratrop 0.5MG [Duoneb (A & A)] Med 03/25/19 17:34 Discontinued 3 ml INH NOW ONE Furosemide [Lasix] Med 03/25/19 19:27 Discontinued 80 mg IV NOW ONE Zosyn 4.5 gm/Ns IV Now Med 03/25/19 23:18 Ordered Piperacillin/Tazobactam [Zosyn] 4.5 gm 0.9% Sodium Chloride Inj [Ns] 100 ml IV NOW Aerosol Treatments Routine Oth 03/25/19 17:34 Completed Aerosol Treatments Stat Oth 03/25/19 17:34 Completed BIPAP Stat Oth 03/25/19 17:34 Active EKG [EKG] Stat Ther 03/25/19 17:29 Draft Discuss[address] admission with Dr Spear. I ordered zosyn 4.5mg based on result of CTA, elevated wbc and recent hx of pneumonia Result Diagrams: 03/25/19 17:30 03/25/19 17:30 - REASSESSMENT Reassessment #1 Time Reassessed: 19:15 Status: improving (Patient was evalauted with now at her bed side. She is tolerating bipap and admits to improvement on bipap by nodding her head upon questioning. h/o was then obtained from ) Reassessment #2 Time Reassessed: 19:30 Status: improving (patient now able to speak, reports improvement. awaiting CTA due to elevated d-dimer and lasix to be ordered due to markedly elevated pro bnp of 6191, increased from 1914 2 to 3 months prior) Reassessment #3 Time Reassessed: 22:40 Status: improving (Patient still on bipap, sleeping but arousable. states she continues to improve. She has had lasix 80mg. BP now down from 106 spb to 81/47. sating at 100. RR 76. Will bolous her with 250mls. discussed admission with patient) - CONSULTS/PCP/HOSPITALIST Notification #1 *Consult/PCP/Hospitalist*: 11:14 Consult Disposition: Admit (to service. Discussed with Dr spear) Departure - Departure Date of Disposition Decision: 03/25/19 Time of Disposition Decision: 23:27 DIAGNOSIS: Acute respiratory failure with hypoxia and hypercarbia Bilateral pneumonia Qualifiers: Pneumonia type: due to unspecified organism Lung location: lower lobe of lung Qualified Code(s): J18.1 - Lobar pneumonia, unspecified organism CHF (congestive heart failure) Qualifiers: Heart failure type: unspecified Heart failure chronicity: acute on chronic Qualified Code(s): I50.9 - Heart failure, unspecified Disposition: ADMITTED INPATIENT 09 Certified Medical Emergency: Emergent Condition: Fair Referrals and Follow-Ups: None,PCP [Primary Care Provider] - - Critical Care Note This patient required my direct & personal management of CC.: Yes Total Time (mins): 100 Critical Care Statement: This patient required my direct personal management to treat or rule out processes, the absence of which, could potentiallly result in sudden, clinically significant life or limb threatening deterioration. Attestation - Physician/ MANDO Attestation Patient care was provided by Advanced Practice Provider:: No The physician spent face to face time with patient:: Yes Advanced Practice Provider documentation review:: Supervising physician onsite and consulted in the evaluation and care of this patient. The physician did have a face to face encounter with the patient.
--- NOTE | 2019-03-25 21:48 | Diag Imaging Result Doc PS360 ---
EXAM: CT ANGIOGRM PULMONARY ARTERIES INDICATION: Dyspnea TECHNIQUE: This exam was performed using automated exposure control, adjustment of mA or kV according to patient size, and/or use of iterative reconstruction technique. Thin section axial images and 3-D MIPS were obtained. COMPARISON: 01/05/2019 FINDINGS: There is no evidence of pulmonary embolism. There is patchy aortic atherosclerotic calcification. There is no evidence of thoracic aortic aneurysm or dissection. There is no cardiomegaly. There is nonspecific mild to moderate mediastinal lymphadenopathy that is similar to the previous study. It is probably reactive. There is a small to moderate-sized right pleural effusion and a small left effusion. There is dependent atelectasis at both lung bases. There is diffuse patchy groundglass opacity suggesting edema and/or air trapping seen throughout both lungs. This is also seen on the previous study but it is worse on the current study. There is also more dense patchy airspace infiltrates seen at both lung bases as well as the right middle lobe and right upper lobe that were not present on the previous study indicating pneumonia. Limited views of the upper abdomen are essentially unremarkable. IMPRESSION: 1.Diffuse patchy groundglass opacities seen throughout both lungs suggesting edema and/or air trapping also with superimposed more dense consolidation scattered bilaterally that are more prominent on the right indicating pneumonia. 2.Bibasilar pleural effusions as described. 3.Mediastinal lymphadenopathy that is similar to the previous study, probably reactive. 4.No evidence of pulmonary embolism. Electronically signed by Jose Escoto 03/25/2019 9:46 PM
[2019-03-25] MEDS ORDERED: NS 250 ML IV ONE (22:40)
[2019-03-25] MEDS ORDERED: ZOSYN 4.5 GM in NS 100 ML IV ONE (23:18)
[2019-03-25] MEDS ORDERED: BLISTEX MEDICATED BERRY LIP BALM TOP ONE (23:41)
[2019-03-26] MEDS ORDERED: ZOFRAN IV PRN (02:32)
--- NOTE | 2019-03-26 03:01 | HISTORY AND PHYSICAL ---
PRIMARY CARE PHYSICIAN: Unknown. CHIEF COMPLAINT: Shortness of breath and cough times several days. HISTORY OF PRESENTING ILLNESS: A 58-year-old female with a history of COPD, CHF, hypertension, CVA, paroxysmal atrial fibrillation and obstructive sleep apnea, who had presented to the emergency department with several days history of worsening shortness of breath. The patient states that she was having difficulty breathing. She is on home oxygen. However, it was not helping. She was evaluated in the emergency department. She was found to be in respiratory failure. She was put on BiPAP and she had some improvement. The patient is a poor historian. However, due to her presenting symptoms she will require admission to ICU for further treatment. At the time of my examination, she was able to deny any headache, fever, chills, chest pain, hemoptysis or any weight changes, but complained of shortness of breath and not feeling well. PAST MEDICAL HISTORY: Includes COPD, CHF, hypertension, paroxysmal atrial fibrillation, CVA, obstructive sleep apnea. PAST SURGICAL HISTORY: Right carotid endarterectomy, appendectomy cholecystectomy, colon surgery. ALLERGIES: Levaquin. CURRENT MEDICATIONS: DuoNebs q.4 hours, atorvastatin 80 mg p.o. daily, carvedilol 12.5 mg p.o. q.p.m., clonazepam 0.5 mg p.o. t.i.d., Plavix 75 mg p.o. daily, Lasix 80 mg p.o. daily, isosorbide mononitrate 30 mg p.o. daily, Protonix 40 mg p.o. daily, prednisone 10 mg p.o. daily, warfarin 5 mg p.o. daily. SOCIAL HISTORY: She states that she is a former smoker. Did denies any alcohol or illicit drug use. FAMILY HISTORY: Positive for coronary artery disease in father. REVIEW OF SYSTEMS: Fourteen point review of systems as listed in HPI. Other systems negative. PHYSICAL EXAMINATION: The patient is in mild to moderate respiratory distress and is currently on a BiPAP. VITAL SIGNS: Temperature 97.5 degrees, pulse 74, respirations 28, blood pressure 114/55. Repeat was 81/47. HEENT: Atraumatic, normocephalic. PERRLA. NECK: No masses. CHEST: Bibasilar rales. CARDIOVASCULAR: Regular rate and rhythm. ABDOMEN: Soft. Positive bowel sounds. EXTREMITIES: +1 edema. NEUROLOGIC: She is awake, alert, oriented x2. GENITOURINARY: No bladder distention. SKIN: Warm. LABORATORIES AND STUDIES: WBC 10.86, hemoglobin 10.9, hematocrit 36.6, platelets 272,000. Blood gases show pCO2 of 62. Sodium 139, potassium 4.6, chloride 96, CO2 is 28, BUN is 13, creatinine 0.7, glucose 219. ProBNP is 6191. Pulmonary arteriogram shows dense consolidation suggestive of pneumonia. ASSESSMENT: A 58-year-old female with a history of chronic obstructive pulmonary disease, congestive heart failure, hypertension, on home oxygen, who had presented to the emergency department with days history of worsening shortness of breath and cough. She was evaluated in the emergency department. She had a pulmonary angiogram which did show a pneumonia. Subsequently, she will require admission for further management. 1. Acute on chronic respiratory failure. 2. Hypercapnia. 3. Probable pneumonia. 4. Chronic obstructive pulmonary disease. 5. Congestive heart failure. 6. Hypertension. PLAN: 1. We will admit patient to ICU. 2. Continue patient on BiPAP. 3. We will check blood cultures. Start patient on IV antibiotics. 4. Continue with DuoNebs. 5. Continue with gentle diuresis with Lasix. 6. We will monitor blood pressure closely. 7. The patient is on warfarin and this will suffice for DVT prophylaxis. 8. We will continue to follow, reassess and make further recommendation based on patient's clinical course. cc: Deric Burrell MD MTDD
[2019-03-26] MEDS: DUONEB (A & A) INH SCH ×6 (03:04→23:22)
[2019-03-26] MEDS: ZOSYN 3.375 GM in NS 50 ML IV SCH ×4 (04:49→23:06)
[2019-03-26 05:44] LABS: INR 2.49; PROTIME 27.6 Seconds (11.0-16.0)
[2019-03-26] MEDS: PRILOSEC PO SCH (06:53)
[2019-03-26] MEDS ORDERED: VANCOMYCIN IV PER PHARMACY MISC SCH (08:30)
[2019-03-26] MEDS ORDERED: LASIX PO SCH (09:00)
[2019-03-26] MEDS ORDERED: PREDNISONE PO SCH (09:00)
[2019-03-26] MEDS ORDERED: KLONOPIN PO SCH (09:00)
[2019-03-26] MEDS: VANCOMYCIN 1.5 GM in NS 250 ML IV SCH (10:11)
[2019-03-26] MEDS: SOLU-MEDROL IV SCH ×2 (10:11→20:21)
[2019-03-26] MEDS: LIPITOR PO SCH (10:13)
[2019-03-26] MEDS: PLAVIX PO SCH (10:13)
[2019-03-26] MEDS: IMDUR PO SCH (10:14)
[2019-03-26] MEDS: NORCO-5 PO PRN ×2 (12:39→20:20)
[2019-03-26] MEDS: LASIX IV SCH ×2 (13:14→23:49)
[2019-03-26] MEDS ORDERED: NS 250 ML ONE (13:37)
[2019-03-26] MEDS ORDERED: LEVOPHED 8 MG in D5 1/2 NS 250 ML IV SCH (14:00)
[2019-03-26] MEDS ORDERED: TYLENOL PO PRN (15:46)
--- NOTE | 2019-03-26 16:11 | PROGRESS NOTE ---
DATE: 03/26/2019 SUBJECTIVE: I saw Ms Gregory this morning in the ICU. She refers to be doing a little better. She was still on the BiPAP. OBJECTIVE: Vital Signs: Blood pressure is 104/49, pulse 59, respirations 20, and temperature 98.2. General: Ms. Gregory is a 58-year-old obese, female. BMI 33.3. She was in mild respiratory distress, under the BiPAP. HEENT: Mucosa is pink and moist. Anicteric. Acyanotic. Neck: Supple. I did not see any JVD. Chest: Air entry was bilaterally reduced. A few crackles in the posterior lung acosta. Also, some distant and expiratory wheezing. Cardiovascular: Regular rate and rhythm. GI: The abdomen was soft and distended, but nontender. Bowel sounds present. Extremities: No pedal edema. COUNSELING PSYCHOLOGIST: The patient was awake, alert, and oriented. LABORATORY DATA: CBC from yesterday was evaluated. The patient has normocytic anemia with mildly elevated white cell count. Chemistry was unremarkable. ProBNP was about 6191. IMAGING STUDIES: A chest x-ray did show bibasilar infiltrates most compatible with mild pulmonary edema. There was also a CTA of the lungs, showed diffuse patchy ground glass opacities throughout the lungs suggesting edema. Also, with superimposed more dense consolidation scattered bilaterally, indicating pneumonia. Bibasilar pleural effusions. No evidence of pulmonary embolism. CURRENT MEDICATIONS: Have all been reviewed and no changes. I have added vancomycin as well as steroids to her current medications. ASSESSMENT: 1. Acute on chronic hypoxemic respiratory failure. The patient is on the BiPAP at the moment. 2. Hypercarbic respiratory failure. Will continue using the BiPAP. 3. Multifocal pneumonia. Will continue with the current antimicrobial therapy. Sputum cultures have also been ordered. 4. Advanced chronic obstructive pulmonary disease in exacerbation. Will continue with steroids, antibiotics, and bronchodilation therapy. I have also consulted Pulmonary Medicine for today. 5. Pulmonary edema secondary to congestive heart failure. The patient has an echocardiogram from January this year. That seems to be suggest an ejection fraction of 35% to 40%. Will continue with diuretic therapy and resume her home medications as well. cc: MD NAHID Larson
[2019-03-26] MEDS: ZANAFLEX PO PRN (18:31)
[2019-03-26] MEDS: COREG PO SCH (20:20)
[2019-03-26] MEDS: COUMADIN PO SCH (20:21)
--- NOTE | 2019-03-26 21:48 | PULMONOLOGY CONSULTATION ---
DATE: 03/26/2019 REQUESTING PHYSICIAN: Dr. Traylor. REASON FOR CONSULTATION: Acute on chronic hypoxemic respiratory failure, hypercarbia. HISTORY OF PRESENT ILLNESS: Ms. Gregory is a 58-year-old, white female, with COPD, obesity, history of stroke, who presented to the emergency room with a several-day history of increased cough, increased sputum production, and increasing shortness of breath. Her oxygen saturation dropped into the 80s, despite her CPAP at home. CT scan of the thorax was performed, which revealed bibasilar consolidation, nonspecific mediastinal adenopathy, no evidence of pulmonary embolism, and tjhnh-da-eyyoospx bibasilar effusions. PAST MEDICAL HISTORY PROBLEM LIST: 1. Mild pulmonary hypertension with a PA systolic pressure of 46, on echocardiogram 01/28/2019. 2. Moderate mitral stenosis with moderate mitral regurgitation. 3. Zbek-rn-cuultvza LV dysfunction with an EF of 35 to 40 percent. 4. COPD. 5. Hypertension. 6. History of stroke. 7. Paroxysmal atrial fibrillation. 8. Status post right carotid endarterectomy. 9. Status post cholecystectomy. 10. Status post appendectomy. 11. Gastroesophageal reflux. 12. Diabetes mellitus. 13. Obesity. SOCIAL HISTORY: Prior tobacco use. The patient reports she stopped smoking 5 to 6 months ago. FAMILY HISTORY: Noncontributory to current presentation. REVIEW OF SYSTEMS: As noted in the HPI. In addition, patient does have reflux symptoms in the evening. She does report her largest meal is in the evening as well. PHYSICAL EXAMINATION: An obese white female on BiPAP. She is conversant. She does not appear to be in distress with the BiPAP in place. The patient has been afebrile during this hospitalization. BP 109/43, heart rate 87, respiratory rate 20, oxygen saturation 97%.HEENT: Pupils are equal and reactive. Oropharynx appears clear. Neck: Supple. Chest: Diminished breath sounds bilaterally with bibasilar crackles. Cardiac: Distant heart sounds. Normal S1, normal S2. Abdomen: Soft. Extremities: Without edema. LABORATORY AND DIAGNOSTIC DATA: CT scan, as per HPI. Arterial blood gas on BiPAP last evening, pH 7.36, pCO2 of 62, pO2 of 108. Arterial blood gas on BiPAP was not performed today. IMPRESSION: A 58-year-old with: 1. Acute hypoxemic respiratory failure. 2. Chronic hypoxemic respiratory failure. 3. Chronic hypercapnic respiratory failure. 4. Aspiration pneumonia. 5. Gastroesophageal reflux disease. 6. Small effusions. 7. Left ventricular dysfunction. 8. Chronic obstructive pulmonary disease. 9. Prior tobacco use. RECOMMENDATIONS: 1. Continue BiPAP. She appears to be tolerating this well and does not appear to be having progressive respiratory decompensation. 2. Continue current antibiotic regimen. 3. Continue bronchial hygiene. 4. Gentle diuresis if tolerated. 5. Encourage reflux precautions and continued smoking abstinence. cc: Indra Bowens MD
[2019-03-26] MEDS ORDERED: KLONOPIN PO ONE (22:54)
[2019-03-27] MEDS: DUONEB (A & A) INH SCH ×6 (03:35→23:45)
[2019-03-27] MEDS: NORCO-5 PO PRN ×3 (04:14→20:26)
[2019-03-27] MEDS: ZOSYN 3.375 GM in NS 50 ML IV SCH ×3 (04:18→17:14)
[2019-03-27 04:42] LABS: ALLEN TEST YES; BE 14.1 mmoll (-3.0-3.0); BLOOD TYPE ARTERIAL; HCO3-(ACT) 35.9 mmoll (20.0-26.0); METHB 1.2 % (0.0-1.5); O2(CT) 14.8 mL/dL (15.0-23.0); O2HB 96.4 % (95.0-99.0); PCO2(98.6) 46 mmHg (35-45); PO2(98.6) 135 mmHg (60-100); SAMPLE BLOOD; SAO2 99.1 % (95.0-100.0); THB 10.7 g/dL (11.5-17.4); pH(98.6) 7.53 (7.35-7.45)
[2019-03-27 04:43] LABS: MODALITY BI PAP
[2019-03-27] MEDS: PRILOSEC PO SCH (06:12)
[2019-03-27 06:32] LABS: HEMATOCRIT 31.4 % (37.0-47.0); HEMOGLOBIN 9.3 g/dL (12.0-16.0); LYMPH# 0.29 X1000 (1.2-3.4); LYMPH% 5.3 % (20.5-51.1); MCH 24.5 PG (27-31); MCHC 29.6 g/dL (33-37); MCV 82.8 FL (81-99); MONO# 0.12 X1000 (0.11-0.59); MONO% 2.2 % (1.7-9.3); MPV 12.3 FL (7.4-10.4); NEUT# 5.02 X1000 (1.4-6.5); NEUT% 92.5 % (42.2-75.2); PLT 227 X1000 (130-400); RBC 3.79 XMIL (4.2-5.4); RDW 18.4 % (11.5-14.5); WBC 5.43 X1000 (4.8-10.8)
[2019-03-27 06:36] LABS: INR 2.19; PROTIME 24.9 Seconds (11.0-16.0)
[2019-03-27 06:53] LABS: AGAP 12; BUN 19 mg/dL (8-22); CALCIUM 7.9 mg/dL (8.8-10.2); CHLORIDE 93 mmol/L (98-107); COSMO 285; CREATININE 0.7 mg/dL (0.5-0.9); ESTIMATED GFR > 60; GLUCOSE 160 mg/dL (70-104); POTASSIUM 2.6 mmol/L (3.5-5.1); SODIUM 140 mmol/L (136-145); TCO2 35 mmol/L (25-35)
[2019-03-27 07:25] LABS: SEGS 100 % (42-75)
--- NOTE | 2019-03-27 07:25 | Diag Imaging Result Doc PS360 ---
EXAM: CHEST-PORTABLE 03/27/2019 HISTORY: abnormal exam TECHNIQUE: AP portable at 0539 COMMENT: There is interstitial and alveolar opacity particularly in the right lower lobe. The heart size is at the upper limits of normal. There is a PICC line on the left with its tip in the right atrium. Compared to 03/25/2019 the left lower lobe is slightly clearer but the right lower lobe is worse. IMPRESSION: Waxing and waning pulmonary edema plus minus pneumonia. Electronically signed by Rubén Leahy 03/27/2019 7:22 AM
--- NOTE | 2019-03-27 07:47 | PROGRESS NOTE ---
DATE: 03/27/2019 SUBJECTIVE: This morning Ms. Gregory refers to be doing fairly okay. Still complaining of a lot of pains, cramps in her legs. She wants more of pain medications. OBJECTIVE: Vital signs: Blood pressure is 89/51 with a MAP of 61, pulse 64, respirations 23, temperature is 99.1. General: Ms. Gregory is a 58-year-old female, she is in bed. Obese. She is on a Venturi mask. HEENT: Mucosa is pink and moist. Anicteric. Acyanotic. Neck: Supple. No JVD. Chest: Air entry is bilaterally reduced. A few crackles in the posterior lung acosta. There is also some distant and expiratory wheezing. Cardiovascular: Regular rate and rhythm. No murmurs, no rubs, no gallops. GI: Abdomen is soft, distended, but nontender. Extremities: No pedal edema. TELEVISION SPECIALIST: Patient is awake, alert, and oriented. The patient's urine output was 2625. She is currently negative balance of 3805. LABORATORY DATA: WBC is 5.43, hemoglobin is 9.3, platelet count of 227,000. Patient's INR is 2.19. PH is 7.53, pCO2 is 46, PaO2 of 135. Chemistry is also reviewed. Potassium is 2.6, bicarb is 35. DIAGNOSTIC STUDIES: A chest x-ray this morning continues to show diffuse infiltrates bilaterally more on the right lower lobe with possible effusion. MICROBIOLOGY DATA: Blood cultures have been 48 hours negative. CURRENT MEDICATIONS: 1. Albuterol and ipratropium, DuoNeb. 2. Lipitor 80 mg p.o. daily. 3. Carvedilol 12.5 daily. 4. Lasix 40 mg IV q.12. 5. Plavix 75 mg p.o. daily. 6. Imdur 30 mg daily. 7. Prednisone 40 mg IV q.12. 8. Vancomycin per pharmacy protocol. 9. Zosyn 3.375 q.6 hours hourly. 10. Coumadin 5 mg p.o. daily. 11. Klonopin 0.5 p.o. 3 times per day. 12. [place] 5 mg q.6 p.r.n. ASSESSMENT: 1. Acute on chronic hypoxemic respiratory failure. The patient is currently on a Venturi mask, cycling with BiPAP, seems to be tolerating well. She is saturating 99% on this. 2. Acute on chronic hypercarbic respiratory failure. Patient is on cycles with BiPAP. PCO2 this morning has significantly improved. 3. Multifocal pneumonia. Patient is on antimicrobial therapy. Sputum cultures are still pending. Blood cultures are negative. 4. Advanced COPD in exacerbation. We will continue with standard of care. Patient has been evaluated by Pulmonary Medicine. 5. Congestive heart failure with ejection fraction of 35% to 40% associated with pulmonary edema. The patient is on diuretic therapy. 6. Paroxysmal atrial fibrillation, currently rate and rhythm control. The patient is on Coumadin for stroke prophylaxis. 7. Moderate mitral stenosis with moderate mitral regurgitation and mild pulmonary hypertension noted on echocardiogram. 8. Chronic narcotic and benzodiazepine use. The patient has been on both [place] and Klonopin for a very, very long time. We are going to continue with these during the hospital course to avoid any potential withdrawal. 9. Hypotension presumably due to a combination of sepsis and medications. The patient's blood pressures are getting better. cc: Davin Traylor MD MTDD
[2019-03-27] MEDS: PLAVIX PO SCH (08:12)
[2019-03-27] MEDS: SOLU-MEDROL IV SCH ×2 (08:12→20:26)
[2019-03-27] MEDS: IMDUR PO SCH (08:13)
[2019-03-27] MEDS: LIPITOR PO SCH (08:13)
[2019-03-27] MEDS: KLONOPIN PO SCH ×3 (08:13→20:26)
[2019-03-27 08:27] LABS: MAGNESIUM 1.2 mg/dL (1.5-2.7); PHOSPHORUS 2.5 mg/dL (2.7-4.5)
[2019-03-27] MEDS: POTASSIUM CHLORIDE 20 MEQ/SWI 20 MEQ/100 ML IVPB IV SCH ×2 (08:29→10:32)
[2019-03-27] MEDS: ZANAFLEX PO PRN ×2 (08:45→20:26)
[2019-03-27 09:48] LABS: URINE SOURCE CATH
[2019-03-27 10:16] LABS: BILIRUBIN URINE NEGATIVE (NEGATIVE); BLOOD URINE NEGATIVE (NEGATIVE); COLOR YELLOW; GLUCOSE URINE NEGATIVE (NEGATIVE); KETONE URINE 10 mg/dL (NEGATIVE); LEUKOCYTES URINE SMALL (NEGATIVE); NITRITE URINE NEGATIVE (NEGATIVE); PH URINE 6.5; PROTEIN URINE NEGATIVE (NEGATIVE); SP GRAVITY URINE 1.012; TURBIDITY URINE CLEAR (CLEAR); UROBILINOGEN URINE NORMAL (NORMAL)
[2019-03-27 10:17] LABS: UR EPITHELIAL CELLS <10 /HPF (<10); URINE BACTERIA NEGATIVE /HPF; URINE RBC <10 /HPF (<10); URINE WBC <10 /HPF (<10)
[2019-03-27] MEDS: VANCOMYCIN 1.5 GM in NS 250 ML IV SCH (11:28)
[2019-03-27] MEDS: LASIX IV SCH (11:58)
--- NOTE | 2019-03-27 12:55 | PULMONOLOGY PROGRESS NOTE ---
DATE: 03/27/2019 SUBJECTIVE: The patient reports she feels a little better. She continues to have a wet cough. OBJECTIVE: Vital Signs: The patient has been afebrile for the last 24 hours. Blood pressure 101/48, heart rate 71, respiratory rate 22, oxygen saturation 95% on 5 L per nasal cannula. HEENT: Pupils are equal and reactive. Oropharynx appears clear. Neck: Is supple. Chest: Reveals rhonchi bilaterally with bibasilar crackles. Cardiac exam: S1, S2. Abdomen: Is obese and soft. Extremities: Reveal trace edema. LABORATORIES: Chest x-ray reveals slight increased density at the right base with partial clearing on the left. Microbiology reveals no new data. Arterial blood gas reveals pH 7.53, pCO2 of 46, PO2 of 135. IMPRESSION: A 58-year-old with 1. Aspiration pneumonia. 2. Acute on chronic hypoxemic respiratory failure. 3. Chronic hypercapnic respiratory failure. 4. Gastroesophageal reflux. 5. LV dysfunction. 6. Chronic obstructive pulmonary disease. PLAN: 1. Continue current antibiotic regimen. 2. Continue bronchial hygiene. 3. Gentle diuresis as tolerated. 4. Reflux precautions. 5. BiPAP at bedtime and p.r.n. cc: Indra Bowens MD
[2019-03-27] MEDS ORDERED: MAGNESIUM SULFATE 2 GM/S.W.I. 2 GM/50 ML IVPB IV ONE (15:56)
[2019-03-27] MEDS: NEUTRA-PHOS PO SCH ×2 (17:14→20:27)
[2019-03-27] MEDS: COREG PO SCH (20:25)
[2019-03-27] MEDS: COUMADIN PO SCH (20:26)
[2019-03-28] MEDS: ZOSYN 3.375 GM in NS 50 ML IV SCH ×5 (00:17→22:54)
[2019-03-28] MEDS: LASIX IV SCH (00:17)
[2019-03-28] MEDS: DUONEB (A & A) INH SCH ×6 (03:57→23:31)
[2019-03-28] MEDS: PRILOSEC PO SCH ×2 (05:46→06:10)
[2019-03-28] MEDS: NORCO-5 PO PRN ×2 (05:46→20:08)
[2019-03-28 06:16] LABS: HEMATOCRIT 31.2 % (37.0-47.0); HEMOGLOBIN 9.3 g/dL (12.0-16.0); IMM GRAN# 0.02 X1000 (0.0-0.04); IMM GRAN% 0.2 % (0.0-0.5); LYMPH# 0.35 X1000 (1.2-3.4); LYMPH% 4.3 % (20.5-51.1); MCH 25.1 PG (27-31); MCHC 29.8 g/dL (33-37); MCV 84.3 FL (81-99); MONO# 0.31 X1000 (0.11-0.59); MONO% 3.8 % (1.7-9.3); MPV 11.7 FL (7.4-10.4); NEUT# 7.49 X1000 (1.4-6.5); NEUT% 91.7 % (42.2-75.2); PLT 203 X1000 (130-400); RDW 18.1 % (11.5-14.5); WBC 8.17 X1000 (4.8-10.8)
[2019-03-28 06:38] LABS: INR 3.48; PROTIME 36.1 Seconds (11.0-16.0)
[2019-03-28 06:45] LABS: AGAP 11; ALBUMIN 3.2 g/dL (3.5-5.0); BUN 21 mg/dL (8-22); CALCIUM 8.2 mg/dL (8.8-10.2); CHLORIDE 97 mmol/L (98-107); COSMO 296; CREATININE 0.9 mg/dL (0.5-0.9); ESTIMATED GFR > 60; GLUCOSE 181 mg/dL (70-104); PHOSPHORUS 3.3 mg/dL (2.7-4.5); POTASSIUM 3.4 mmol/L (3.5-5.1); SODIUM 145 mmol/L (136-145); TCO2 37 mmol/L (25-35)
[2019-03-28] MEDS: IMDUR PO SCH (09:15)
[2019-03-28] MEDS: PLAVIX PO SCH (09:15)
[2019-03-28] MEDS: KLONOPIN PO SCH ×3 (09:15→20:01)
[2019-03-28] MEDS: NEUTRA-PHOS PO SCH ×4 (09:15→20:01)
[2019-03-28] MEDS: LIPITOR PO SCH (09:15)
[2019-03-28] MEDS: SOLU-MEDROL IV SCH ×2 (09:25→20:02)
--- NOTE | 2019-03-28 10:05 | PROGRESS NOTE ---
DATE: 03/28/2019 SUBJECTIVE: This morning, Ms. Gregory refers to be doing a whole lot better. was at the bedside at the time of the encounter. Still has some mild coughing but, in general, her breathing has significantly improved. The patient is currently not on any vasopressor. Blood pressures are a lot better. OBJECTIVE: Vital Signs: Blood pressure is 106/61, with a MAP of 79, pulse of 62, respirations are 17, temperature is 98.1 degrees. General Examination: Ms. Gregory is a 58-year-old, morbidly obese, female. BMI is 33.3. She is in bed. No distress. HEENT: Mucosa is pink and moist. Anicteric. Acyanotic. Neck: Supple. Chest: Air entry continues to be bilaterally reduced. There is some distant expiratory wheezing. No crackles. Cardiovascular: Regular rate and rhythm. No murmurs, no rubs, no gallops. GI: Abdomen is soft. Distended but nontender. Bowel sounds are present. Extremities: No pedal edema. WHEEL ALIGNMENT MECHANIC: The patient is awake, alert, and oriented. Laboratory Data: WBC is 8.17, hemoglobin is 9.3, platelet count of 203,000. The patient's INR is 3.48. Chemistry is also reviewed. Potassium is 3.4. Rest of chemistry is unremarkable. The patient's proBNP is 3367, so about half of her admitting proBNP. Intakes and Outputs: Urine output is 2127 for a total negative balance of 3380. The patient was able to consume 75% of her diet this morning. No imaging studies today. MEDICATIONS: Current medications have also been reviewed. The patient is on: 1. [place] 5 mg q.6 p.r.n. 2. DuoNebs. 3. Lipitor 80 mg p.o. daily. 4. Carvedilol 12.5 p.o. q.p.m. 5. Klonopin 0.5 three times per day. 6. Plavix 75 mg p.o. daily. 7. Lasix 40 mg IV q.12. 8. Methylprednisolone 40 mg IV q.12. 9. Vancomycin per pharmacy protocol. 10. Zosyn 3.375 q.6. 11. Zanaflex. 12. Coumadin has been reduced to 2.5. ASSESSMENT: 1. Acute on chronic hypoxemic respiratory failure. Patient is improved. 2. Acute on chronic hypercarbic respiratory failure. Patient uses BiPAP, especially at night. 3. Multifocal pneumonia. We will continue with Zosyn and vancomycin for a total of 7 days. This will be switched to oral medications once the patient is ready for discharge. 4. Advanced chronic obstructive pulmonary disease, in exacerbation. We will continue with standard of care. 5. Congestive heart failure with ejection fraction of 35% to 40% associated with pulmonary edema on presentation. We will continue with diuretic therapy. I think the patient is currently almost euvolemic status, so I will change the intravenous diuretics to oral. 6. Paroxysmal atrial fibrillation, currently rate and rhythm controlled. Patient is on Coumadin for stroke prophylaxis. 7. Moderate mitral stenosis and regurgitation with mild pulmonary hypertension on echocardiogram, noted. 8. Chronic narcotic and benzodiazepine use, noted. 9. Hypotension, presumably a combination of sepsis and medication side effects. Blood pressures are a lot better. Patient is off pressors. PLAN: In general, I think Ms. Gregory is doing a whole lot better today. We are going to remove the Leary catheter, transfer Ms. Gregory to [facility]. Consult physical therapy to start working with her. We are also changing her IV diuretics to p.o. We will repeat her electrolytes, chest x-ray, and proBNP for tomorrow morning. If Ms. Gregory continues to show steady progress, I think in the next 24 to 48 hours, she will be a candidate for discharge. cc: Davin Traylor MD
[2019-03-28] MEDS: VANCOMYCIN 1.5 GM in NS 250 ML IV SCH (10:57)
--- NOTE | 2019-03-28 14:14 | PULMONOLOGY PROGRESS NOTE ---
DATE: 03/28/2019 SUBJECTIVE: The patient is awake, alert and sitting in chair. She reports her breathing continues to improve. OBJECTIVE: She has been afebrile for the last 24 hours. Blood pressure 127/67, heart rate 75, respiratory rate 20, oxygen saturation 99% on 5 L per nasal cannula. HEENT: Pupils equal and reactive. Oropharynx appears clear . Neck: Supple. Chest: Reveals crackles in both lung bases. Cardiac: S1, S2. Abdomen: Obese and soft. Extremities: Without edema. LABORATORY: Chest x-ray reveals no new data. White blood count 8.17, hemoglobin 9.3, platelet count 203,000. IMPRESSION: 58-year-old with 1. Aspiration pneumonia. 2. Acute on chronic hypoxemic respiratory failure. 3. Chronic hypercapnic respiratory failure. 4. Left ventricular dysfunction. 5. Chronic obstructive pulmonary disease. 6. Gastroesophageal reflux . DISCUSSION: 58-year-old problems outlined above. She continues to improve. PLAN: 1. Anticipate transfer to a less intensive hospital floor. 2. Continue antibiotics. 3. Continue bronchial hygiene. 4. Ongoing education about reflux precautions. 5. Two-view chest x-ray tomorrow morning. cc: Indra Bowens MD
[2019-03-28] MEDS: ZANAFLEX PO PRN (17:45)
[2019-03-28] MEDS ORDERED: COUMADIN PO SCH (21:00)
[2019-03-28] MEDS: COREG PO SCH (21:20)
[2019-03-29] MEDS: ZANAFLEX PO PRN (00:02)
[2019-03-29] MEDS: DUONEB (A & A) INH SCH (03:17)
[2019-03-29] MEDS ORDERED: PNEUMOVAX 23 IM ONE (05:28)
[2019-03-29] MEDS: PRILOSEC PO SCH (05:45)
[2019-03-29] MEDS: ZOSYN 3.375 GM in NS 50 ML IV SCH ×2 (05:45→13:11)
[2019-03-29] MEDS: VANCOMYCIN 1.5 GM in NS 250 ML IV SCH (07:04)
[2019-03-29 07:25] LABS: AGAP 9; BUN 26 mg/dL (8-22); CALCIUM 8.3 mg/dL (8.8-10.2); CHLORIDE 97 mmol/L (98-107); COSMO 288; CREATININE 0.8 mg/dL (0.5-0.9); ESTIMATED GFR > 60; GLUCOSE 137 mg/dL (70-104); POTASSIUM 3.7 mmol/L (3.5-5.1); SODIUM 141 mmol/L (136-145); TCO2 35 mmol/L (25-35)
--- NOTE | 2019-03-29 07:44 | Diag Imaging Result Doc PS360 ---
EXAM: CHEST-2 VIEWS HISTORY: abnormal exam TECHNIQUE: Chest two views COMPARISON: 03/27/2019 FINDINGS: The lungs are well expanded. The heart is not enlarged. The vessels are not distended. There has been partial clearing of the bilateral infiltrates. No change in the left-sided PICC line.. No pleural effusions. IMPRESSION: Interval improvement Electronically signed by Armaan Baldwin 03/29/2019 7:42 AM
[2019-03-29] MEDS: IMDUR PO SCH (08:40)
[2019-03-29] MEDS: PLAVIX PO SCH (08:40)
[2019-03-29] MEDS: LIPITOR PO SCH (08:40)
[2019-03-29] MEDS: KLONOPIN PO SCH (08:40)
[2019-03-29] MEDS: NEUTRA-PHOS PO SCH ×2 (08:41→13:11)
[2019-03-29] MEDS: SOLU-MEDROL IV SCH (08:42)
[2019-03-29] MEDS: NORCO-5 PO PRN (08:53)
[2019-03-29] MEDS ORDERED: LASIX PO SCH (09:00)
[2019-03-29 16:21] VITALS: BP 115/65
--- NOTE | 2019-03-30 10:06 | DISCHARGE SUMMARY ---
ADMISSION DATE: 03/26/2019 DISCHARGE DATE: 03/29/2019 DISPOSITION: Home. FOLLOWUP: 1. Dr. Balderrama. 2. Dr. Rivas. CONSULTATIONS DURING THIS ADMISSION: Pulmonary Medicine was consulted. Patient was seen by Dr. Bowens. INVASIVE PROCEDURES DONE DURING THIS ADMISSION: None. IMAGING STUDIES OF SIGNIFICANCE: A chest x-ray did show bibasilar infiltrate most compatible with mild pulmonary edema. Pulmonary angiogram showed diffuse patchy ground-glass opacities throughout the lungs suggestive of edema and/or trapping bilaterally consistent with an pneumonia. There were also bibasilar pleural effusions. ADMISSION DIAGNOSES: 1. Acute on chronic respiratory failure. 2. Hypercarbia. 3. Probable pneumonia. 4. Chronic obstructive pulmonary disease. 5. Congestive heart failure. DIAGNOSES AT THE TIME OF DISCHARGE: 1. Acute on chronic hypoxemic respiratory failure. 2. Acute on chronic hypercarbic respiratory failure. 3. Advanced chronic obstructive pulmonary disease in exacerbation. 4. Multifocal pneumonia, questionable for aspiration pneumonitis. 5. Congestive heart failure with ejection fraction of 35% to 40%. 6. Paroxysmal atrial fibrillation. 7. Moderate mitral stenosis and mitral regurgitation with mild pulmonary hypertension on echo. 8. Hypotension on presentation, presumably due to medication side effects. 9. Chronic narcotic and benzodiazepine use. MICROBIOLOGY DATA: Blood cultures for 48 hours negative. Urine culture was also negative. DISCHARGE MEDICATIONS: 1. Clopidogrel 75 mg p.o. daily. 2. Pantoprazole 40 mg p.o. daily. 3. Inhalers. 4. Furosemide 80 mg p.o. daily. 5. Klonopin 0.5 three times per day. 6. Atorvastatin 80 mg p.o. daily. 7. Isordil 30 mg p.o. daily. 8. Warfarin 5 mg p.o. daily. 9. Carvedilol 12.5 mg p.o. q.p.m. 10. Prednisone 10 mg p.o. daily. 11. Augmentin 875 one tablet b.i.d. 12. Doxycycline 100 mg b.i.d. PRESENTING COMPLAINT: Shortness of breath, cough several days. HISTORY OF PRESENTING COMPLAINT: Ms. Gregory, a 58-year-old female, who presented to the emergency department because of shortness of breath, cough, was found to be in respiratory failure on presentation. She was placed on BiPAP and was admitted to the ICU. HOSPITAL COURSE: Ms. Gregory was started on broad-spectrum IV antibiotics, was also diuresed since her pro-B was elevated and Pulmonary Medicine was consulted. Gradually during the course of the hospital stay Ms. Gregory continued to improve, some progressively weaned off the BiPAP and was placed on nasal cannula. At the time of the discharge, she was saturating 100% on just about 4 to 5 L which is her baseline. A chest x-ray this morning suggests interval improvement. The patient feels remarkably better. She is not having any more shortness of breath. Her vitals have all been stable. Blood pressure is 115/65, pulse of 76, respirations 16, temperature 98.3 degrees. The patient is saturating 100%. Physical exam is also unremarkable except for decreased air entry bilaterally and some mild scattered intermittent wheezing in both lungs. We think Ms. Gregory is back to her baseline. Ms Gregory has been on chronic narcotic and benzodiazepine and we have advised that she follow up with her primary care doctor to reevaluate and see the need to be on both medications at this point. Most time she comes to the hospital because of hypotension. We think part of it is because of medication and she needs to have that addressed. All the discharge instructions have been discussed with her. She voiced understanding. TIME SPENT: For discharge is 35 minutes. cc: MD Vale Larson MD James E. Boyle, MD
== END 2019-03-29 16:22 | disposition home or self-care (01) | DRG 189 ==
LOC: ED 17:16 → SUATTDRO 03-26 01:13 → EDIPHOLD 03-26 01:13 → ICU 03-26 11:03 → 4N 03-28 23:22
PROVIDERS: ATTEND Internal Medicine

== ENCOUNTER 2019-03-30 20:38 | Inpatient (IN) ==
--- NOTE | 2019-03-30 20:48 | PROVIDER DOCUMENTATION ---
HPI-General Adult - General Chief Complaint: Shortness of Breath Stated Complaint: Shortness of breath Time Seen by Provider: 03/30/19 20:44 Source: patient, family Allergies/Adverse Reactions: Patient Allergies Allergy/AdvReac Type Severity Reaction Status Date / Time levofloxacin [From Levaquin] Allergy Intermediate RASH Verified 07/07/18 07:44 NSAIDS (Non-Steroidal Allergy Unknown Unknown Verified 07/07/18 07:44 Anti-Inflamma Home Medications: Home Medication List Medication Instructions Recorded Confirmed Last Taken Type Clopidogrel Bisulfate [Plavix] 75 mg PO DAILY 03/22/18 03/25/19 07/06/18 History Pantoprazole [Protonix] 40 mg PO DAILY 10/09/18 03/25/19 Unknown History Albuterol Sulfate Inhaler 2 puff INH Q6H PRN PRN #1 inhaler 10/20/18 03/25/19 Unknown Rx [Ventolin Hfa] Atorvastatin Calcium 80 mg PO DAILY 12/11/18 03/25/19 Unknown History Clonazepam 0.5 mg PO TID 12/11/18 03/25/19 Unknown History Furosemide 80 mg PO DAILY 12/11/18 03/25/19 Unknown History Albuterol 2.5MG/Ipratrop 0.5MG 3 ml INH Q4H PRN PRN #90 neb 12/12/18 03/25/19 Unknown Rx [Duoneb (A & A)] Isosorbide Mononitrate [Isosorbide 1 tab PO DAILY 01/05/19 03/25/19 Unknown History Mononitrate ER] Warfarin Sodium 5 mg PO DAILY 01/06/19 03/25/19 Unknown History Carvedilol [Coreg] 12.5 mg PO QPM 01/27/19 03/25/19 Unknown History Tizanidine HCl [Zanaflex] 4 mg PO BID PRN 01/27/19 03/25/19 Unknown History Prednisone 10 mg PO DAILY #21 tab 02/21/19 03/25/19 Unknown Rx Guaifenesin E.r. [Mucinex] 1,200 mg PO Q12HR 30 Days #60 tab 04/02/19 Unknown Rx - History of Present Illness -Gen Adult Nature of Presenting Problems: This is a 58yo female with PMH of COPD who present with acute respiratory failure via EMS. Per EMS the patient has a home cpap that she was trying to use but saturation was in the 80s. EMS arrived and at first the patient did not want to come to the hospital. The patient arrived appearing obtunded and on a cpap device. She was able to respond to commands. Per EMS they reports they had maintained her saturation in high 90s enroute. Discussed case with patient who reports patient was recently discharged from the hospital and he was trying to put her CPAP on this evening and noted her saturation was in the 60-70s so he called the ambulance. The also reports that the patient does have an issue with aspiration. Review of Systems - Adult - REVIEW OF SYSTEMS - ADULT ROS:: unobtainable per condition Constitutional: reports: other (unable to obtain per condition) Past History - Adult - PAST MEDICAL HISTORY-ADULT Review of Records: reports: Nursing Assessment Review Major Childhood Illnesses: reports: denies history Cardiovascular: reports: A-Fib, CAD, CHF, hyperlipidemia, [place] (2 to 3x) Respiratory: reports: COPD, pneumonia (was treated last hospitalization), other (hx of respiratory failure, hypoxia, hypercarbia) Gastrointestinal: reports: GERD Obstetrical/Gynecological: reports: denies history Genitourinary: reports: denies history Musculoskeletal: reports: chronic pain Neurological: reports: CVA (x2 with complete neurologic recovery) Psychiatric: reports: anxiety Endocrine/Immune: reports: denies history Other Conditions: reports: denies history - PRIOR SURGERIES/PROCEDURES Surgical/Procedure History: reports: other, appendectomy, cholecystectomy - PRIOR HOSPITALIZATIONS Prior Hospitalizations: reports: for similar symptoms - IMMUNIZATION STATUS Childhood Immunizations: See Nurse Assessment Flu Vaccine: See Nurse Assessment - FAMILY HISTORY Family History: reviewed, not pertinent Physical Exam-General - PHYSICAL EXAM-ADULT Initial Vital Signs Reviewed: Yes - CONSTITUTIONAL General Appearance: obtunded - EYES Eyes: negative: scleral icterus - HEAD, EARS, NOSE, MOUTH & THROAT HENMT: other (dry mucous membrane) - RESPIRATORY Respiratory: respiratory distress, decreased breath sounds, rales (RLL) - CARDIOVASCULAR Cardiovascular: negative: no edema (1+ edema noted) - GASTROINTESTINAL (ABDOMEN) Abdominal Exam: non tender, soft - SKIN Integumentary: warm/dry, other (brusing noted on the right arm at previous PICC sight) - NEUROLOGIC Neurologic: grossly normal - PSYCHIATRIC Psych/Mental Status: other (more respsonsive with time and bipap, originally want to leave and remove bipap, but has improved.) Progress - PLAN OF CARE/RESULTS Progress/Plan/Lab Results: Orders Category Date Time Status ABG [RESP] Stat Lab 03/30/19 20:44 Ordered BIPAP Stat Oth 03/30/19 20:44 Ordered Result Diagrams: 04/01/19 05:25 04/01/19 07:20 - REASSESSMENT Reassessment #2 Status: other (Discussed case with Dr. Burrell who has accepted the patient for admission.) Departure - Departure Date of Disposition Decision: 03/30/19 Time of Disposition Decision: 23:57 DIAGNOSIS: Acute respiratory failure Qualifiers: Respiratory failure complication: hypercapnia Qualified Code(s): J96.02 - Acute respiratory failure with hypercapnia Disposition: ADMITTED INPATIENT 09 Certified Medical Emergency: Emergent Condition: Stable - Critical Care Note This patient required my direct & personal management of CC.: No Attestation - Physician/ MANDO Attestation Patient care was provided by Advanced Practice Provider:: No The physician spent face to face time with patient:: Yes Advanced Practice Provider documentation review:: Supervising physician onsite and consulted in the evaluation and care of this patient. The physician did have a face to face encounter with the patient.
[2019-03-30 21:00] LABS: ALLEN TEST YES; BLOOD TYPE ARTERIAL; HCO3-(ACT) 34.3 mmoll (20.0-26.0); METHB 1.2 % (0.0-1.5); O2(CT) 14.5 mL/dL (15.0-23.0); O2HB 95.3 % (95.0-99.0); PO2(98.6) 311 mmHg (60-100); SAMPLE BLOOD; SAO2 99.4 % (95.0-100.0); SRATE 14 BPM; THB 10.2 g/dL (11.5-17.4); pH(98.6) 7.42 (7.35-7.45)
[2019-03-30 21:01] LABS: MODALITY BI PAP
[2019-03-30 21:03] LABS: PCO2(98.6) 59 mmHg (35-45)
[2019-03-30 21:05] LABS: BASO# 0.02 X1000 (0.0-0.2); BASO% 0.1 % (0.0-0.8); EOS# 0.05 X1000 (0.0-0.7); EOS% 0.4 % (0.0-10.0); HEMATOCRIT 35.6 % (37.0-47.0); HEMOGLOBIN 10.5 g/dL (12.0-16.0); IMM GRAN# 0.05 X1000 (0.0-0.04); IMM GRAN% 0.4 % (0.0-0.5); LYMPH# 1.46 X1000 (1.2-3.4); LYMPH% 10.8 % (20.5-51.1); MCH 24.9 PG (27-31); MCHC 29.5 g/dL (33-37); MCV 84.6 FL (81-99); MONO# 1.24 X1000 (0.11-0.59); MONO% 9.2 % (1.7-9.3); MPV 11.9 FL (7.4-10.4); NEUT# 10.73 X1000 (1.4-6.5); NEUT% 79.1 % (42.2-75.2); PLT 221 X1000 (130-400); RBC 4.21 XMIL (4.2-5.4); RDW 18.2 % (11.5-14.5); WBC 13.55 X1000 (4.8-10.8)
[2019-03-30 21:29] LABS: AGAP 12; ALB/GLOB RATIO 1.2; ALBUMIN 3.5 g/dL (3.5-5.0); ALKALINE PHOSPHATASE 65 U/L (32-104); BUN 26 mg/dL (8-22); CALCIUM 8.9 mg/dL (8.8-10.2); CHLORIDE 96 mmol/L (98-107); COSMO 288; CREATININE 0.8 mg/dL (0.5-0.9); ESTIMATED GFR > 60; GLUCOSE 139 mg/dL (70-104); GOT 23 U/L (10-30); GPT 19 U/L (10-36); SODIUM 141 mmol/L (136-145); TCO2 33 mmol/L (25-35); TOTAL BILIRUBIN 0.47 mg/dL (0.20-1.00); TOTAL PROTEIN 6.4 g/dL (6.3-8.3)
[2019-03-30 22:26] LABS: PTT 37.9 Seconds (22.3-41.8)
[2019-03-30 22:45] LABS: INR 4.59
[2019-03-30 23:09] LABS: URINE SOURCE CATH
[2019-03-30 23:12] LABS: BILIRUBIN URINE NEGATIVE (NEGATIVE); BLOOD URINE NEGATIVE (NEGATIVE); COLOR YELLOW; GLUCOSE URINE NEGATIVE (NEGATIVE); KETONE URINE NEGATIVE (NEGATIVE); LEUKOCYTES URINE NEGATIVE (NEGATIVE); NITRITE URINE NEGATIVE (NEGATIVE); PROTEIN URINE TRACE mg/dL (NEGATIVE); TURBIDITY URINE CLEAR (CLEAR); UR EPITHELIAL CELLS <10 /HPF (<10); URINE BACTERIA NEGATIVE /HPF; URINE RBC <10 /HPF (<10); URINE WBC <10 /HPF (<10); UROBILINOGEN URINE NORMAL (NORMAL)
--- NOTE | 2019-03-31 01:13 | HISTORY AND PHYSICAL ---
PRIMARY CARE PROVIDER: None. CHIEF COMPLAINT: Shortness of breath. HISTORY OF PRESENT ILLNESS: Ms Gregory is a 58-year-old female, well known to our service for several admissions for acute on chronic hypoxemic hypercapnic respiratory failure, COPD, she reports she quit smoking 8 years ago, paroxysmal atrial fibrillation, mitral valve disease, prior stroke with residual weakness, hypertension, GERD, obesity, obstructive sleep apnea, supposed to wear a CPAP machine, renal artery disease, status post renal stent placement, LV dysfunction. She was most recently discharged from our service on 03/29/2019 after being diagnosed with pneumonia and acute hypercapnic hypoxemic respiratory failure, and was discharged on doxycycline, Augmentin, and prednisone. She reported tonight she was unable to get her CPAP to work. She became short of breath. Her called EMS. They reported the O2 saturations in the 60s to 70s. In the ambulance, her oxygen saturation on CPAP was in the 90s. She arrived somewhat obtunded, she was hypercapnic with a CO2 of 59 on BiPAP as well as an elevated proBNP of 8666. Chest x-ray is currently pending. She has not been started on any treatment, so we will initiate her on broad- spectrum antibiotics, and since she was just discharged from the hospital on vancomycin and cefepime. We will add bronchodilators, IV Lasix, and watch her overnight in the ICU. Recheck her ABG in the a.m. PAST MEDICAL HISTORY: 1. Acute on chronic hypercarbic hypoxemic respiratory failure. 2. COPD. 3. Congestive heart failure. 4. Recent treatment for multifocal pneumonia. 5. Paroxysmal atrial fibrillation. 6. Moderate mitral stenosis and mitral regurgitation with pulmonary hypertension. 7. Chronic narcotic and benzodiazepine use. PAST SURGICAL HISTORY: 1. Cholecystectomy. 2. Carotid endarterectomy. 3. Renal stent placement. SOCIAL HISTORY: She is . She reports she quit smoking 8 months ago. She is not drinking any alcohol, per her report. She reports that she is only taking her home medications. REVIEW OF SYSTEMS: The patient denied any fever, nausea, vomiting, diarrhea, chest pain, dizziness. She did report shortness of breath and bilateral leg pain. HOME MEDICATIONS: Have not been verified. ALLERGIES: To levofloxacin, causes a rash. NSAIDs, unknown. PHYSICAL EXAMINATION: VITAL SIGNS: Temperature is 97.6 degrees, heart rate 78, respirations 25, blood pressure 109/71, 100% on BiPAP. GENERAL: Ms. Gregory is a 58-year-old female who is lying on her right side on BiPAP, in no acute distress. HEENT: Atraumatic, normocephalic. PERRL. Poor dentition. NECK: Supple. Could not appreciate any JVD by the way she was laying. CARDIOVASCULAR: S1, S2 appreciated. No murmurs, gallops, or rubs noted. RESPIRATORY: Lung sounds relatively clear. She is bilaterally decreased in the bases. GASTROINTESTINAL: Soft, nontender, nondistended. Positive bowel sounds 4 quadrants. EXTREMITIES: Lower extremities with generalized edema. NEUROLOGIC: No focal deficits noted. DIAGNOSTIC DATA: Chest x-ray has not been read. LABORATORY DATA: White count 13, hemoglobin and hematocrit 10 and 35, platelet count 221,000. PT 45, INR 4.59. ABG: pH 7.42, pCO2 59, PO2 of 311, O2 saturation 99% on BiPAP. Lactate 1. Sodium 141, potassium 4.0, BUN 26, creatinine 0.8. Blood glucose is 139. Troponin less than 0.010. ProBNP was 8666. Urinalysis was negative for nitrates, negative for bacteria. ASSESSMENT AND PLAN: 1. Acute hypoxemic hypercarbic respiratory failure. We will continue with BiPAP. Recheck her ABGs in the morning. Continue with aggressive pulmonary toilet, bronchodilators. 2. Recent treatment for multifocal pneumonia and questionable for aspiration pneumonitis. We will continue with vancomycin and cefepime. Supplemental O2, aggressive pulmonary toilet. 3. Congestive heart failure exacerbation with an ejection fraction of 35% to 40%. We will continue with IV diuresis b.i.d. Recheck a proBNP in the morning. 4. Advanced chronic obstructive pulmonary disease. Does not appear to be in exacerbation. We will continue with bronchodilators, BiPAP. Reconsult Pulmonology if necessary. 5. Paroxysmal atrial fibrillation. We will continue home medications when verified. 6. Hypertension. Patient is borderline hypotensive, 90s/60s. We will hold any blood pressure medications at this time. 7. Supratherapeutic INR and PT. We will hold her Coumadin and Plavix for now. Check daily PT and INR. 8. Diabetes mellitus. We will place her on pattern blood sugars and sliding scale. 9. Further recommendation to follow physician evaluation, laboratory, and diagnostic data. Dictated by RALPH Meza for Deric Burrell MD I have performed a face to face diagnostic evaluation. Labs/ Xrays- reviewed. Exam- Chest -rhonchi, CV- regular. A/P- Acute respiratory failure, Hypercapnia, Pneumonia- Admit, BIPAP, Check blood cultures, IV ABX. Dr. Burrell cc: Deric Burrell MD [facility]
[2019-03-31] MEDS ORDERED: SODIUM CHLORIDE 0.9% INJ SCH (01:22)
[2019-03-31] MEDS ORDERED: VANCOMYCIN IV PER PHARMACY MISC SCH (01:22)
[2019-03-31] MEDS ORDERED: TYLENOL PO PRN (01:22)
[2019-03-31] MEDS ORDERED: DUONEB (A & A) INH PRN (01:22)
[2019-03-31] MEDS: MAXIPIME 2 GM in NS 100 ML IV SCH ×2 (02:01→13:29)
[2019-03-31] MEDS: PEPCID IV SCH ×2 (02:01→13:29)
[2019-03-31] MEDS: LASIX IV SCH ×2 (02:01→13:29)
[2019-03-31] MEDS: VANCOMYCIN 1,500 MG in NS 250 ML IV SCH ×2 (03:29→20:41)
[2019-03-31] MEDS: DUONEB (A & A) INH SCH ×6 (03:38→23:21)
[2019-03-31 06:13] LABS: AGAP 11; ALB/GLOB RATIO 1.1; ALBUMIN 3.2 g/dL (3.5-5.0); ALKALINE PHOSPHATASE 57 U/L (32-104); BUN 25 mg/dL (8-22); CALCIUM 8.4 mg/dL (8.8-10.2); CHLORIDE 99 mmol/L (98-107); COSMO 290; CREATININE 0.7 mg/dL (0.5-0.9); ESTIMATED GFR > 60; GLUCOSE 83 mg/dL (70-104); GOT 20 U/L (10-30); GPT 16 U/L (10-36); MAGNESIUM 1.4 mg/dL (1.5-2.7); POTASSIUM 3.7 mmol/L (3.5-5.1); SODIUM 144 mmol/L (136-145); TCO2 34 mmol/L (25-35); TOTAL BILIRUBIN 0.49 mg/dL (0.20-1.00); TOTAL PROTEIN 6.1 g/dL (6.3-8.3)
[2019-03-31] MEDS: HUMALOG SUBQ SCH ×4 (06:29→21:14)
[2019-03-31 06:31] LABS: BASO# 0.01 X1000 (0.0-0.2); BASO% 0.1 % (0.0-0.8); EOS# 0.09 X1000 (0.0-0.7); HEMATOCRIT 32.6 % (37.0-47.0); HEMOGLOBIN 9.4 g/dL (12.0-16.0); LYMPH# 1.41 X1000 (1.2-3.4); LYMPH% 15.4 % (20.5-51.1); MCH 24.3 PG (27-31); MCHC 28.8 g/dL (33-37); MCV 84.2 FL (81-99); MONO# 0.76 X1000 (0.11-0.59); MONO% 8.3 % (1.7-9.3); NEUT% 75.2 % (42.2-75.2); PLT 208 X1000 (130-400); RBC 3.87 XMIL (4.2-5.4); RDW 17.8 % (11.5-14.5); WBC 9.17 X1000 (4.8-10.8)
--- NOTE | 2019-03-31 07:09 | Diag Imaging Result Doc PS360 ---
EXAM: CHEST-1 VIEW 03/30/2019 HISTORY: Shortness of breath TECHNIQUE: AP portable at 2257 COMMENT: There is cardiomegaly increased pulmonary vascularity and interstitial pulmonary edema. The latter is slightly worse than on 03/29/2019. IMPRESSION: Pulmonary edema and cardiomegaly. Electronically signed by Rubén Leahy 03/31/2019 7:06 AM
--- NOTE | 2019-03-31 07:12 | Diag Imaging Result Doc PS360 ---
EXAM: CHEST-PORTABLE 03/31/2019 HISTORY: Pneumonia TECHNIQUE: AP portable at 0523 COMMENT: The inspiration is less optimal than on 03/30/2019. There continues to be interstitial pulmonary edema. There is some opacification of the right base laterally which may be due to atelectasis. IMPRESSION: Pulmonary edema. Right lower lobe atelectasis versus pneumonia. Electronically signed by Rubén Leahy 03/31/2019 7:09 AM
--- NOTE | 2019-03-31 07:47 | EKG Report ---
Test Performed on : 03/31/2019 06:38:23 AM Test Reason : Heart Failure Admission Blood Pressure : / mmHG Vent. Rate : 065 BPM Atrial Rate : 065 BPM P-R Int : 146 ms QRS Dur : 098 ms QT Int : 432 ms P-R-T Axes : 068 084 -34 degrees QTc Int : 449 ms Normal sinus rhythm. Lateral infarct (cited on or before 13-AUG-2018) Possible Inferior infarct (cited on or before 12-AUG-2018) Abnormal ECG When compared with ECG of 25-MAR-2019 17:21, (Unconfirmed) premature ventricular complexes. are no longer present Confirmed by Gordon HERRERA, iGrma Krishna ([id number]) on 04/01/2019 8:15:41 PM
[2019-03-31] MEDS: ZANAFLEX PO SCH ×2 (13:28→20:41)
[2019-03-31] MEDS: NORCO-10 PO PRN ×2 (13:28→20:41)
[2019-03-31] MEDS ORDERED: MAGNESIUM SULFATE 2 GM/S.W.I. 2 GM/50 ML IVPB IV ONE (15:31)
--- NOTE | 2019-03-31 15:57 | PROGRESS NOTE ---
DATE: 03/31/2019 SUBJECTIVE: Ms. Gregory presented today, this morning of 03/31/2019 with shortness of breath. This is a 58-year-old female, well known to our service for several admissions on acute on chronic hypoxemic hypercapnic respiratory failure, COPD. She reports she quit smoking 8 years ago, paroxysmal atrial fib, history of mitral valve disease, prior stroke, residual weakness, hypertension, gastroesophageal reflux disease, obesity, obstructive sleep apnea supposed to wear a CPAP machine, renal artery disease status post renal stent placement, left ventricular dysfunction. She most recently discharged from our service on 03/29/2019 after being diagnosed with pneumonia and acute hypercapnic hypoxemic respiratory failure. She was discharged on doxycycline, Augmentin and prednisone. The reports we got last night were she was unable to get her CPAP to work. She became short of breath. Her called EMS, reported O2 saturations in 60s and 70s. In the ambulance, oxygen saturation on CPAP was in the 90s. Arrived somewhat obtunded. She was hypercapnic with CO2 of 59, BiPAP as well as elevated proBNP of 8666. Chest x- ray is currently pending. She has not been started on any treatment, so they initiated her on broad-spectrum antibiotics and, since she was recently discharged from the hospital, put her on vancomycin and cefepime for hospital-acquired organisms. I am going to add bronchodilators and IV Lasix. PAST MEDICAL HISTORY: 1. Acute on chronic hypercarbic hypoxemic respiratory failure. 2. COPD. 3. Congestive heart failure. 4. Recent treatment with multifocal pneumonia. 5. Paroxysmal atrial fibrillation. 6. Moderate mitral stenosis and mitral regurgitation, pulmonary hypertension. 7. Chronic narcotic and benzodiazepine use. PAST SURGICAL HISTORY: 1. Cholecystectomy. 2. Carotid endarterectomy. 3. Renal stent placement. She is doing better. She is on BiPAP, but probably able to come off BiPAP. She is insistent on getting pain medicine. She wants her [place]. If she does not get her [place], she wants to go to another hospital. She wanted to fire me as a doctor. I tried to explain my concerns about her breathing, but she is adamant that she will get her pain medicine, so we have agreed. She wants to take her [place]. She wants 10 mg q. 6 hours. ASSESSMENT AND PLAN: 1. Acute hypoxemic hypercarbic respiratory failure. Continue her BiPAP as needed. Air exchange seems to be doing better. Continue aggressive pulmonary toilet, some bronchodilators. 2. Recent treatment for multifocal pneumonia, questionable aspiration pneumonitis. We are going to put her on empiric treatment again with vancomycin and cefepime. Supplement her oxygen. 3. Congestive heart failure. Ejection fraction 35 to 40 percent. So she has congestive heart failure with reduced ejection fraction. Continue to diurese with intravenous Lasix. 4. Advanced chronic obstructive pulmonary disease. Does not appear to be in exacerbation, but we are going to continue her bronchodilators, and she apparently was not able to use her BiPAP. 5. Paroxysmal atrial fibrillation. Continue her medications. Rate is controlled. 6. Hypertension. The patient is borderline hypotensive with systolic pressures in the 90s and holding her blood pressure medication. 7. Supratherapeutic INR and PT. So, holding her Coumadin and Plavix for now and check daily INR and PT. 8. Diabetes mellitus type 2. Continue to follow sugars. 9. Chronic pain; back pain and musculoskeletal pain, and is insistent on getting her pain medicine. 10. She wants to be a full code. Talked to her if her breathing deteriorates, does she want to go on the ventilator and she said she does. She has right lobe atelectasis versus pneumonia on x- ray with some pulmonary edema. So we will continue current medications and see how we progress. cc: Kirk Cintron MD
[2019-03-31] MEDS ORDERED: KLONOPIN PO ONE (21:45)
[2019-04-01] MEDS: MAXIPIME 2 GM in NS 100 ML IV SCH ×2 (01:20→14:05)
[2019-04-01] MEDS: LASIX IV SCH ×2 (01:20→14:05)
[2019-04-01] MEDS: PEPCID IV SCH ×2 (01:20→14:05)
[2019-04-01] MEDS: NORCO-10 PO PRN ×3 (03:08→17:01)
[2019-04-01] MEDS: DUONEB (A & A) INH SCH ×6 (03:37→23:21)
--- NOTE | 2019-04-01 06:29 | Diag Imaging Result Doc PS360 ---
CHEST-PORTABLE - 04/01/2019 INDICATION: Pneumonia COMPARISON: 03/31/2019 FINDINGS: Stable cardiomegaly and pulmonary vascular congestion. Stable hazy bilateral infiltrates worse in the bases. Stable right basilar opacification which may represent atelectasis or a small right pleural effusion. IMPRESSION: No change from prior. Electronically signed by Wan Eddy 04/01/2019 6:26 AM
--- NOTE | 2019-04-01 06:35 | PULMONOLOGY CONSULTATION ---
DATE: 03/31/2019 REQUESTING PHYSICIAN: Dr. Cintron. REASON FOR CONSULTATION: Respiratory failure. HISTORY OF PRESENT ILLNESS: Ms. Gregory is a 58-year-old, white female with obesity, severe COPD, pulmonary hypertension, who was recently admitted to the hospital between 03/26 to 03/29/2019 with an aspiration pneumonia. The patient returned to the emergency room within 2 days. This represents her 11th ambulance transport to the emergency room. The patient had increased shortness of breath along with dropping oxygen saturations at home. Chest x-ray in the emergency room revealed cardiomegaly with vascular congestion. Arterial blood gas on BiPAP revealed a pH 7.42, pCO2 of 59, PO2 of 311 on BiPAP of 12/6 and FiO2 of 100%. PAST MEDICAL HISTORY/PROBLEM LIST: 1. Pulmonary hypertension. 2. Moderate mitral stenosis with mitral regurgitation. 3. Mild to moderate LV dysfunction. 4. Chronic obstructive pulmonary disease. 5. Hypertension. 6. Chronic pain syndrome. 7. History of stroke. 8. Paroxysmal atrial fibrillation. 9. Status post cholecystectomy. 10. Status post right carotid endarterectomy. 11. Status post appendectomy. 12. Gastroesophageal reflux with previous poor dietary hygiene. 13. Diabetes mellitus. 14. Obesity with BMI greater than 30. SOCIAL HISTORY: Patient denies recent tobacco use. She reports she stopped smoking 5 to 6 months ago. FAMILY HISTORY: Noncontributory to current presentation. REVIEW OF SYSTEMS: Notable for increased cough, increased shortness of breath. PHYSICAL EXAMINATION: General: Reveals an obese white female resting comfortably on BiPAP ventilation. Vital signs: Blood pressure 133/87, heart rate 59, respiratory rate 20, oxygen saturation 95%. HEENT: Pupils are equal and reactive. Oropharynx appears clear. Neck: Supple. Chest: Reveals prolonged expiratory phase with faint wheezing and bibasilar crackles. Cardiac: S1, S2. Abdomen: Obese and soft. Extremities: Without edema. LABORATORIES: Arterial blood gas on BiPAP with an FiO2 of 100%, pH 7.42, pCO2 of 59, PO2 of 311. IMPRESSION: A 58-year-old with 1. Recurrent admissions to the hospital. 2. Acute hypoxemic respiratory failure. 3. Chronic hypercapnic respiratory failure. 4. Acute pulmonary edema. 5. Acute cor pulmonale. PLAN: 1. Continue BiPAP ventilation. 2. Diuresis as tolerated. 3. Encourage weight loss. 4. Consider b.i.d. Lasix at the time of discharge. cc: Indra Bowens MD
[2019-04-01 06:43] LABS: BASO# 0.04 X1000 (0.0-0.2); BASO% 0.5 % (0.0-0.8); EOS# 0.11 X1000 (0.0-0.7); EOS% 1.3 % (0.0-10.0); HEMATOCRIT 34.8 % (37.0-47.0); HEMOGLOBIN 10.6 g/dL (12.0-16.0); IMM GRAN# 0.02 X1000 (0.0-0.04); IMM GRAN% 0.2 % (0.0-0.5); LYMPH# 1.52 X1000 (1.2-3.4); LYMPH% 18.2 % (20.5-51.1); MCH 25.3 PG (27-31); MCHC 30.5 g/dL (33-37); MCV 83.1 FL (81-99); MONO# 0.72 X1000 (0.11-0.59); MONO% 8.6 % (1.7-9.3); MPV 12.1 FL (7.4-10.4); NEUT# 5.96 X1000 (1.4-6.5); NEUT% 71.2 % (42.2-75.2); PLT 207 X1000 (130-400); RBC 4.19 XMIL (4.2-5.4); RDW 17.8 % (11.5-14.5); WBC 8.37 X1000 (4.8-10.8)
[2019-04-01] MEDS: HUMALOG SUBQ SCH ×4 (07:42→21:33)
[2019-04-01 08:01] LABS: INR 3.17; PROTIME 33.5 Seconds (11.0-16.0)
[2019-04-01 08:20] LABS: AGAP 12; ALB/GLOB RATIO 0.9; ALBUMIN 3.2 g/dL (3.5-5.0); ALKALINE PHOSPHATASE 61 U/L (32-104); BUN 22 mg/dL (8-22); CALCIUM 8.8 mg/dL (8.8-10.2); CHLORIDE 96 mmol/L (98-107); COSMO 288; CREATININE 0.9 mg/dL (0.5-0.9); ESTIMATED GFR > 60; GLUCOSE 91 mg/dL (70-104); GOT 14 U/L (10-30); GPT 16 U/L (10-36); POTASSIUM 3.7 mmol/L (3.5-5.1); SODIUM 143 mmol/L (136-145); TCO2 35 mmol/L (25-35); TOTAL BILIRUBIN 0.63 mg/dL (0.20-1.00); TOTAL PROTEIN 6.7 g/dL (6.3-8.3)
[2019-04-01] MEDS: ZANAFLEX PO SCH ×2 (09:26→21:44)
--- NOTE | 2019-04-01 09:54 | PROGRESS NOTE ---
DATE: 04/01/2019 SUBJECTIVE: Ms. Gregory feels much better. The pain is much more subdued. She is breathing a lot more comfortably, sitting up in the bed and asking for regular food. OBJECTIVE: Vital Signs: Temperature 97.7 degrees, pulse 66, respirations 20, blood pressure 95/69. Eyes: Pupils are equal and round. Lungs: Clear in all lung acosta. Cardiovascular exam: Regular rhythm and rate without murmur or S3. Abdomen: Abdomen is soft. Skin: Skin is warm and dry. : Urine output is 4000 mL. LABORATORY DATA: White count 8370, hematocrit is 34, platelet count is 204,000. Chemistry: Sodium 143, potassium 3.7, chloride 96. BUN 22, creatinine 0.9. ProBNP was 7224. ASSESSMENT AND PLAN: 1. Recurrent admissions to the hospital: Acute hypoxemic respiratory failure, chronic hypercapnic respiratory failure, acute pulmonary edema, acute cor pulmonale. She is using BiPAP as needed. Continue to diuresis as tolerated. Encourage weight loss. 2. Chronic pain syndrome. She seems to be doing better back on her hydrocodone. We will try and get her up out of bed and increase her activity. Blood pressure well controlled. Watch her diabetes. Her sugars appear to be under better control. See how she does eating. She has supratherapeutic INR. We have held her Coumadin. Pro time down to 33. INR is 3.17. cc: Kirk Cintron MD
[2019-04-01] MEDS: KLONOPIN PO SCH ×2 (13:33→17:01)
[2019-04-01] MEDS: VANCOMYCIN 1,500 MG in NS 250 ML IV SCH (14:10)
[2019-04-01] MEDS: MUCINEX PO SCH ×2 (14:22→21:44)
--- NOTE | 2019-04-01 21:18 | PULMONOLOGY PROGRESS NOTE ---
DATE: 04/01/2019 SUBJECTIVE: The patient is awake, alert, and conversant. She reports her shortness of breath has markedly diminished. She has had a negative fluid balance. OBJECTIVE: Vital Signs: The patient has been afebrile for the last 24 hours. Blood pressure 106/60, heart rate 68, respiratory rate 20, oxygen saturation 94% on 4 L per nasal cannula. HEENT: Pupils are equal and reactive. Oropharynx appears clear. Neck: Supple. Chest: Reveals prolonged expiration and bibasilar crackles. Cardiac exam: S1-S2. Abdomen: Obese and soft. Extremities: Reveal +1 peripheral edema. DIAGNOSTIC DATA: Chest x-ray reveals bilateral infiltrates with small right-sided effusion. Microbiology is negative. Chemistry: Sodium 143, potassium 3.7, chloride 96, bicarbonate 34, BUN 22, creatinine 0.9. White blood count 8.37, hemoglobin 10.6, platelet count 207,000. IMPRESSION: A 58-year-old with: 1. Acute hypoxemic respiratory failure. 2. Chronic hypercapnic respiratory failure. 3. Acute cor pulmonale. 4. Acute pulmonary edema. PLAN: 1. Continue to cycle BiPAP at bedtime and p.r.n. 2. Diuresis as tolerated. 3. Encourage weight loss. 4. Consider b.i.d. Lasix at the time of discharge. cc: Indra Bowens MD
[2019-04-02] MEDS: DUONEB (A & A) INH SCH ×3 (02:39→11:18)
[2019-04-02] MEDS: MAXIPIME 2 GM in NS 100 ML IV SCH ×2 (03:31→13:51)
[2019-04-02] MEDS: PEPCID IV SCH ×2 (03:40→13:50)
[2019-04-02] MEDS: NORCO-10 PO PRN ×2 (04:30→11:52)
[2019-04-02] MEDS: LASIX IV SCH ×2 (04:31→13:50)
[2019-04-02 07:00] LABS: INR 2.63; PROTIME 28.8 Seconds (11.0-16.0)
[2019-04-02] MEDS: HUMALOG SUBQ SCH ×4 (07:42→16:26)
[2019-04-02] MEDS: KLONOPIN PO SCH ×2 (08:54→13:50)
[2019-04-02] MEDS: ZANAFLEX PO SCH (08:54)
[2019-04-02] MEDS: VANCOMYCIN 1,500 MG in NS 250 ML IV SCH (09:26)
[2019-04-02] MEDS: MUCINEX PO SCH (10:53)
[2019-04-02] MEDS ORDERED: MUCINEX PO SCH (11:45)
--- NOTE | 2019-04-02 14:47 | DISCHARGE SUMMARY ---
ADMISSION DATE: 03/31/2019 DISCHARGE DATE: HISTORY: She presented with shortness of breath. A 58-year-old female, well known to our service with several admissions for acute on chronic hypoxemic and hypercapnic respiratory failure, and COPD. She reports she quit smoking 8 years ago. She has a history of paroxysmal atrial fibrillation, mitral valve disease, prior stroke with residual weakness, hypertension, gastroesophageal reflux disease, obesity, obstructive sleep apnea and supposed to be on CPAP machine, renal artery disease, status post renal stent placement, and left ventricular dysfunction. She was most recently discharged from our service on 03/29/2019 after being diagnosed with pneumonia, acute hypercapnic hypoxemic respiratory failure, and was discharged on doxycycline, Augmentin and prednisone. She reported the day of admission, she was unable to get her CPAP to work and became short of breath. called EMS. Her O2 saturations were in the 60s and 70s. In the ambulance, O2 saturation on CPAP was in the 90s. She arrived somewhat obtunded. She was hypercapnic with a pCO2 of 59. BiPAP as well as elevated on the BiPAP. She had an elevated proBNP of 8666. Chest x-ray showed pulmonary edema and cardiomegaly, but did not show any infiltrate. The patient was diuresed and was kept on the BiPAP. Pulmonary was asked to follow along. She has had recurrent admissions to this hospital with acute hypoxemic respiratory failure, chronic hypercapnic respiratory failure, acute pulmonary edema, and acute cor pulmonale. Her air and gas exchange improved, and we were able to move her to the floor. She felt like she was back at her baseline, so we will discharge her home. DISCHARGE MEDICATIONS: She is on albuterol ipratropium or DuoNeb's 3 mL inhalation q.4 hours p.r.n. She is on Ventolin inhaler 2 puffs q.6 hours p.r.n. She is on atorvastatin 80 mg a day, Coreg 12.5 mg every evening, clonazepam 0.5 mg p.o. At home, she takes that 3 times a day, Plavix 75 mg a day, furosemide 80 mg a day, isosorbide mononitrate 1 tablet a day, Protonix 40 mg a day, prednisone 10 mg a day, tizanidine 4 mg b.i.d. p.r.n., and her Coumadin which is 5 mg a day. Noted her prothrombin time was 28 on discharge, and so we will let her go home. Encouraged her to follow up with the primary care physician in a couple of weeks. Continue to use her CPAP, and stay with her bronchodilators. She does not need any antibiotic at this point. cc: Kirk Cintron MD
[2019-04-02 15:30] VITALS: BP 128/69
== END 2019-04-02 16:15 | disposition home or self-care (01) | DRG 189 ==
LOC: ED 20:38 → SUATTDRO 03-31 00:28 → ICU 03-31 00:28 → 4N 04-01 18:00
PROVIDERS: ATTEND Emergency Medicine

== ENCOUNTER 2019-04-26 22:04 | Inpatient (IN) ==
[2019-04-26 22:20] LABS: BE 10.4 mmoll (-3.0-3.0); BLOOD TYPE ARTERIAL; HCO3-(ACT) 32.8 mmoll (20.0-26.0); METHB 0.7 % (0.0-1.5); O2(CT) 12.7 mL/dL (15.0-23.0); PCO2(98.6) 50 mmHg (35-45); PO2(98.6) 53 mmHg (60-100); SAMPLE BLOOD; THB 10.4 g/dL (11.5-17.4); pH(98.6) 7.46 (7.35-7.45)
[2019-04-26 22:22] LABS: ALLEN TEST YES; MODALITY BI PAP; O2HB 86.9 % (95.0-99.0)
[2019-04-27 00:21] LABS: BASO# 0.03 X1000 (0.0-0.2); BASO% 0.3 % (0.0-0.8); EOS# 0.06 X1000 (0.0-0.7); EOS% 0.6 % (0.0-10.0); HEMATOCRIT 35.1 % (37.0-47.0); HEMOGLOBIN 10.4 g/dL (12.0-16.0); IMM GRAN# 0.02 X1000 (0.0-0.04); IMM GRAN% 0.2 % (0.0-0.5); LYMPH# 1.02 X1000 (1.2-3.4); LYMPH% 10.5 % (20.5-51.1); MCH 25.1 PG (27-31); MCHC 29.6 g/dL (33-37); MCV 84.6 FL (81-99); MONO# 0.99 X1000 (0.11-0.59); MONO% 10.2 % (1.7-9.3); MPV 12.4 FL (7.4-10.4); NEUT# 7.58 X1000 (1.4-6.5); NEUT% 78.2 % (42.2-75.2); PLT 209 X1000 (130-400); RBC 4.15 XMIL (4.2-5.4); RDW 18.8 % (11.5-14.5)
[2019-04-27 01:37] LABS: AGAP 14; ALBUMIN 3.6 g/dL (3.5-5.0); ALKALINE PHOSPHATASE 94 U/L (32-104); BUN 13 mg/dL (8-22); CALCIUM 8.9 mg/dL (8.8-10.2); CHLORIDE 97 mmol/L (98-107); COSMO 284; CREATININE 0.8 mg/dL (0.5-0.9); ESTIMATED GFR > 60; GLUCOSE 148 mg/dL (70-104); GOT 15 U/L (10-30); GPT 7 U/L (10-36); SODIUM 141 mmol/L (136-145); TCO2 31 mmol/L (25-35); TOTAL PROTEIN 7.3 g/dL (6.3-8.3)
[2019-04-27] MEDS: SOLU-MEDROL IV SCH ×4 (04:04→21:47)
[2019-04-27] MEDS: ROCEPHIN 1 GM in NS 50 ML IV SCH (04:06)
--- NOTE | 2019-04-27 07:04 | HISTORY AND PHYSICAL ---
PRIMARY CARE PHYSICIAN: Unknown. CHIEF COMPLAINT: Shortness of breath x2 days. HISTORY OF PRESENTING ILLNESS: 58-year-old female with a history of COPD, hypertension, CHF, atrial fibrillation who presented initially to [facility] with complaint of shortness of breath. She was evaluated in the emergency department. There she was found to be in somewhat respiratory distress. She was put on BiPAP and she had improvement. Due to lack of subspecialist care there, she was transferred to [facility] for further evaluation and management. At the time of my examination, patient denied any headache, fever, chills, chest pain, hemoptysis, or weight changes, but complained of shortness of breath. PAST MEDICAL HISTORY: Includes hypertension, COPD, CHF, atrial fibrillation, chronic opioid dependence. PAST SURGICAL HISTORY: Cholecystectomy, carotid endarterectomy, renal stent. ALLERGIES: Levofloxacin and NSAIDs. CURRENT MEDICATIONS: Include albuterol nebs q.4 hours, atorvastatin 80 mg p.o. daily, carvedilol 12.5 mg p.o. q.p.m., Clonazepam 0.5 mg p.o. t.i.d., Plavix 75 mg p.o. daily, Lasix 80 mg p.o. daily, isosorbide mononitrate 30 mg p.o. daily, pantoprazole 40 mg p.o. daily, prednisone 10 mg p.o. daily, warfarin 5 mg p.o. daily. SOCIAL HISTORY: She is a former smoker. Denies any history of alcohol or illicit drug use. FAMILY HISTORY: Positive coronary disease in father. REVIEW OF SYSTEMS: Fourteen point review of system as listed in HPI. Other systems negative. PHYSICAL EXAMINATION: GENERAL: Cooperative, friendly female. She is resting more comfortably. She is currently on a BiPAP. VITAL SIGNS: Temperature 97.6 degrees, pulse 70 respiration 26, blood pressure 116/51. HEENT: Atraumatic, normocephalic. Extraocular movements intact. PERRLA. NECK: No masses. CHEST: Rhonchi. CARDIOVASCULAR: Regular rate and rhythm. ABDOMEN: Soft, positive bowel sounds. EXTREMITIES: No edema. NEUROLOGIC: She is awake, alert, oriented x3. : No bladder distention. SKIN: Warm. LABORATORIES AND STUDIES: WBCs 9.70, hemoglobin 10.4, hematocrit 35.1, platelets 209,000. ABG shows a pCO2 of 50, pH of 7.46. Sodium 141, potassium 4.0, chloride 97, CO2 is 31, BUN is 13, creatinine 0.8, glucose 148. ASSESSMENT: This is a 58-year-old female with a history of chronic obstructive pulmonary disease, hypertension, congestive heart failure and atrial fibrillation who had presented initially to [facility] with complaint shortness of breath. She was found to have respiratory distress she was put on BiPAP. She had improvement. She was then transferred to [facility] due to lack of subspecialist care there, and she and she will be managed here. 1. Acute on chronic respiratory failure. 2. Chronic obstructive pulmonary disease exacerbation. 3. Atrial fibrillation. 4. Hypertension. PLAN: 1. The patient is admitted to medical floor with telemetry. 2. We will continue patient on BiPAP. 3. We will continue with DuoNeb's, IV Solu-Medrol. 4. We will consult Pulmonary. 5. Monitor pro time and INR closely and continue with anticoagulation. 6. We will monitor blood pressure. Resume antihypertensive agents. 7. The patient is on warfarin for deep venous thrombosis prophylaxis. 8. We will continue to follow and reassess. Make further recommendation based on patient's clinical course. cc: Deric Burrell MD MTDD
[2019-04-27] MEDS ORDERED: DUONEB (A & A) INH SCH (07:30)
[2019-04-27] MEDS: DUONEB (A & A) INH SCH ×5 (07:40→23:14)
--- NOTE | 2019-04-27 07:52 | Diag Imaging Result Doc PS360 ---
EXAM: CHEST-PORTABLE INDICATION: cough TECHNIQUE: One view COMPARISON: 04/01/2019 FINDINGS: Inspiration is suboptimal. There are increased interstitial markings throughout indicating moderate interstitial edema. There is a small to moderate-sized right pleural effusion with adjacent atelectasis and/or infiltrate. There is stable cardiomegaly and at least mild pulmonary venous congestion. IMPRESSION: Suggestion of moderate interstitial edema with a small to moderate-sized right pleural effusion and adjacent right basilar atelectasis and/or infiltrate. Electronically signed by Jose Escoto 04/27/2019 7:50 AM
[2019-04-27] MEDS ORDERED: DUONEB (A & A) INH PRN (14:00)
[2019-04-27] MEDS ORDERED: COUMADIN PO SCH ×2 (14:00→21:00)
[2019-04-27] MEDS: KLONOPIN PO SCH ×2 (14:30→18:01)
[2019-04-27] MEDS: NORCO-5 PO PRN (14:38)
[2019-04-27] MEDS: LASIX IV SCH ×3 (15:37→23:26)
[2019-04-27 16:20] LABS: INR 3.55; PROTIME 36.6 Seconds (11.0-16.0)
--- NOTE | 2019-04-27 16:38 | PROGRESS NOTE ---
DATE: 04/27/2019 INTERVAL HISTORY: No acute events overnight. I was informed by the nursing team that the patient had requested IV Dilaudid. SUBJECTIVE: The patient is sleeping in the right lateral position. She does not want to engage in clinical encounter. However with strong verbal stimuli, she wakes up and she stated that she wants her [place] intravenously. She does not appear to be in acute distress, though. VITALS: Currently temperature of 98.4 degrees, pulse of 64, respiratory rate 30, blood pressure 112/56. She is saturating 95% on BiPAP. The last saturation was at 7:30. PHYSICAL EXAMINATION: Not in acute distress. She has a BiPAP mask. She has decreased air entry in right infrascapular region with inspiratory crackles bilateral end-expiratory wheezes S1, S2 normal. No murmur, rub, or gallop. Abdomen: Soft, nontender. Her telemetry appears to have normal sinus rhythm. No lower extremity edema. She is alert. She does not engage in clinical encounter meaningfully. Previously, she had normocytic anemia elevated D-dimer. She also had hypoxic, hypercarbic respiratory failure. Normal electrolytes with elevated proBNP. ASSESSMENT AND PLAN: 1. Acute pulmonary edema with acute on chronic hypoxic, hypercapnic respiratory failure due to acute congestive heart failure exacerbation and acute chronic obstructive pulmonary disease exacerbation. Continue BiPAP and give BiPAP break. Follow up with STAT ABG and ABG in the morning time. Follow up serial chest x-ray. Continue oxygenation to maintain saturation between 88 to 92 percent. Continue intravenous methylprednisolone, intravenous Lasix and intravenous antibiotics. Follow up sputum culture. 2. Acute systolic congestive heart failure exacerbation with ejection fraction of 35%. Continue home carvedilol and resume oral Lasix starting tomorrow. 3. History of paroxysmal atrial fibrillation and essential hypertension. Continue home clopidogrel, warfarin, isosorbide mononitrate. 4. History of carotid endarterectomy. Continue home Plavix. 5. Others: Continue albuterol ipratropium nebulization, home clonazepam and [place] for chronic opioid and chronic benzodiazepine use disorder. DISPOSITION: I will continue to monitor patient under telemetry unit. Follow up with STAT ABG. I called patient's and informed him about patient's course and answered all of his questions. cc: Troy Yates MD
[2019-04-27] MEDS: COREG PO SCH (21:45)
--- NOTE | 2019-04-27 22:19 | PULMONOLOGY CONSULTATION ---
DATE: 04/27/2019 REQUESTING CLINICIAN: Dr. Yates. REASON FOR CONSULTATION: COPD. HISTORY OF PRESENT ILLNESS: Ms. Gregory is a 58-year-old female with severe heart and lung disease, prior tobacco use (elevated carboxyhemoglobin on admission, patient denies tobacco use) who has had 8 admissions to the hospital this year. The patient was evaluated in the emergency room at [facility] with increased shortness of breath. Chest x-ray revealed pulmonary edema with small right- sided pleural effusion. The patient reports her breathing has become worse when she stopped smoking. She also reports this episode occurred shortly after cleaning her oven with oven booth cleaner 2 days prior to admission. She denies significant fevers or chills. PAST MEDICAL HISTORY: 1. Moderate mitral stenosis with mitral regurgitation. 2. Pulmonary hypertension. 3. Mild to moderate LV dysfunction. 4. Chronic obstructive pulmonary disease. 5. Chronic pain syndrome. 6. Hypertension. 7. Paroxysmal atrial fibrillation. 8. History of stroke. 9. Status post cholecystectomy. 10. Status post appendectomy. 11. Status post right carotid endarterectomy. 12. Gastroesophageal reflux disease with poor dietary schedule. 13. Diabetes mellitus. 14. Obesity. SOCIAL HISTORY: The patient denies tobacco use as per above, but she does have an elevated carboxyhemoglobin level raising the possibility that she is smoking. She denies alcohol use. She has chronic pain syndrome. FAMILY HISTORY: Noncontributory to the current presentation. REVIEW OF SYSTEMS: Notable for increased cough, increased shortness of breath. She frequently requests pain medications. OBJECTIVE: The patient has been afebrile during this hospital stay. Blood pressure 135/73, heart rate 69, respiratory rate 23, oxygen saturation 100% on BiPAP. HEENT: Pupils are equal and reactive. Oropharynx appears clear. Neck: Is supple. Chest: Reveals faint crackles bilaterally. Cardiac exam: S1-S2. Abdomen: Is obese and soft. Extremities: Reveal 1+ peripheral edema. LABORATORIES: Chest x-ray as per HPI. Chemistries: Sodium 141, potassium 4.0, chloride 97, bicarb 31, BUN 13, creatinine 0.8. White blood count 9.7, hemoglobin 10.4, platelet count 209,000. Arterial blood gas reveals a pH 7.46, pCO2 of 50, PO2 of 53 with a carboxyhemoglobin of 4.8. IMPRESSION: A 58-year-old with 1. Acute hypoxemic respiratory failure. 2. Chronic hypercapnic respiratory failure. 3. Acute pulmonary edema. 4. Acute cor pulmonale. 5. Elevated carboxyhemoglobin level with a denial of tobacco use. PLAN: 1. Diuresis as tolerated. 2. Caution patient about exposure to toxic chemicals/inhalation. 3. Rediscussed the importance of smoking cessation in a non-accusatory fashion. 4. Encourage weight loss. 5. Diuresis as tolerated. 6. Chest x-ray and arterial blood gas tomorrow as ordered by Dr. Yates. cc: Indra Bowens MD
[2019-04-28] MEDS: ZOFRAN IV PRN ×3 (01:07→21:27)
[2019-04-28] MEDS: NORCO-5 PO PRN (02:26)
[2019-04-28] MEDS: DUONEB (A & A) INH SCH ×6 (03:20→23:09)
[2019-04-28] MEDS: SOLU-MEDROL IV SCH ×2 (03:56→09:40)
[2019-04-28] MEDS: ROCEPHIN 1 GM in NS 50 ML IV SCH (03:56)
[2019-04-28 07:05] LABS: INR 3.31; PROTIME 34.6 Seconds (11.0-16.0)
[2019-04-28 07:08] LABS: HEMATOCRIT 35.4 % (37.0-47.0); HEMOGLOBIN 10.5 g/dL (12.0-16.0); LYMPH# 0.34 X1000 (1.2-3.4); LYMPH% 5.7 % (20.5-51.1); MCH 24.8 PG (27-31); MCHC 29.7 g/dL (33-37); MCV 83.5 FL (81-99); MONO# 0.18 X1000 (0.11-0.59); MPV 12.5 FL (7.4-10.4); NEUT# 5.49 X1000 (1.4-6.5); NEUT% 91.3 % (42.2-75.2); PLT 226 X1000 (130-400); RBC 4.24 XMIL (4.2-5.4); RDW 18.4 % (11.5-14.5); WBC 6.01 X1000 (4.8-10.8)
[2019-04-28 07:41] LABS: AGAP 16; BUN 21 mg/dL (8-22); CALCIUM 8.2 mg/dL (8.8-10.2); CHLORIDE 90 mmol/L (98-107); COSMO 275; CREATININE 0.9 mg/dL (0.5-0.9); ESTIMATED GFR > 60; GLUCOSE 93 mg/dL (70-104); POTASSIUM 2.9 mmol/L (3.5-5.1); SODIUM 136 mmol/L (136-145); TCO2 30 mmol/L (25-35)
[2019-04-28] MEDS: PLAVIX PO SCH (09:40)
[2019-04-28] MEDS: PROTONIX PO SCH (09:40)
[2019-04-28] MEDS: LASIX PO SCH (09:40)
[2019-04-28] MEDS: KLONOPIN PO SCH ×3 (09:40→21:22)
[2019-04-28] MEDS: LIPITOR PO SCH (09:40)
[2019-04-28] MEDS: IMDUR PO SCH (09:40)
[2019-04-28] MEDS ORDERED: POTASSIUM CHLORIDE 20 MEQ/SWI 20 MEQ/100 ML IVPB IV ONE (11:20)
[2019-04-28] MEDS: KLOR-CON PO SCH ×2 (11:55→15:07)
--- NOTE | 2019-04-28 11:57 | Diag Imaging Result Doc PS360 ---
CHEST-PORTABLE - 04/28/2019 INDICATION: decreased o2 stats COMPARISON: 04/27/2019 FINDINGS: There has been perhaps mild increase in the opacification at the lateral right midlung and lung base. This appears most likely to be at least partially due to pleural effusion. Stable diffuse bilateral interstitial infiltrates suggesting pulmonary edema. Stable cardiomegaly and pulmonary vascular congestion. No left-sided effusion. IMPRESSION: Perhaps mild worsening aeration of the right lung. Electronically signed by Wan Eddy 04/28/2019 11:55 AM
--- NOTE | 2019-04-28 12:49 | PROGRESS NOTE ---
DATE: 04/28/2019 INTERVAL HISTORY: The patient had refused to get an ABG in the morning time. The patient's is at bedside and was requesting to talk to me. SUBJECTIVE: The patient is complaining of mouth pain, and that she is not able to eat by mouth because of mouth pain. She states she herself had pulled out her teeth 3 to 4 days prior to current presentation. She thinks that her mouth is infected. She is denying any chest pain, shortness of breath, nausea, vomiting, or abdominal pain. VITALS: Temperature 97.7 degrees, pulse 69, respiratory 23, blood pressure 118/46, and saturating 100% on BiPAP. She is currently on nasal cannula 5 L which is baseline. PHYSICAL EXAMINATION: She is not in any acute distress. Pupils are bilaterally equal reacting to light. No pallor, cyanosis, or icterus. She has poor oral hygiene with missing teeth and multiple dental caries. No pharyngeal exudate. She has significantly decreased air entry in right infrascapular region with inspiratory crackles. Adequate air entry on left hemithorax. No wheeze.Cardiovascular: S1, S2 normal. Regular. No murmur or gallop. Abdomen: Obese, soft, and nontender. Extremities: No lower extremity edema. Neurologic: She is alert and oriented x3. She is able to reposition herself, and sit up in the bed by herself. LABORATORY: Labs are suggestive of no leukocytosis, normocytic anemia, and normal platelet count. INR of 3.3. She has hypokalemia which is currently being repleted with IV and oral potassium. ASSESSMENT AND PLAN: 1. Acute chronic obstructive pulmonary disease exacerbation leading to acute on chronic hypoxic hypercapnic respiratory failure. Continue albuterol ipratropium nebulization. Decrease steroid dose to 40 mg IV every 24 hours. Continue oxygenation to maintain saturation 88 to 92 percent. She is also on intravenous ceftriaxone. Follow up final blood culture. She may need a CT scan of the chest if she does not show improvement. 2. Acute pulmonary edema, pulmonary vascular congestion and pleural effusion due to acute congestive heart failure exacerbation with prior history of coronary artery disease treated medically and diastolic congestive heart failure. Continue oral Lasix and give additional doses of IV Lasix. Her last echocardiogram in January of 2019 had an ejection fraction of 35 to 40 percent. Replete potassium and follow up magnesium level. Close input and output monitoring. 3. History of paroxysmal atrial fibrillation and essential hypertension. 4. Continue home warfarin and isosorbide mononitrate. 5. Others: History of carotid endarterectomy and CVA. 6. Continue home clopidogrel. 7. Chronic benzodiazepine and opioid use disorder, and current episode of mouth pain because of dental caries. I advised her outpatient dentist appointment. I will continue her on her home [place] and clonazepam. I will decrease the frequency of steroids. 8. Disposition: The patient will be continued to be monitored inside the hospital. The patient has been refusing blood draws. I explained to her about need for arterial blood gas and blood draws to allow us to take care of her better, but she states it causes her pain, and she understands it. She would not allow any more blood draws. She along with her request that she needs to just 1 intravenous pain shot to help with her mouth pain. I explained to her that mouth pain may not be an indication for need for IV opioids, and she would need to have a dentist appointment. I offered them several options to have mouth pain relieved including mouthwash, but the patient got angry, and she does not want to try any mouthwash. She states that she could not take NSAID's because her heart doctor had stated she should not though there is no documented allergy. I again tried to explain to patient and her about adverse effects of long-term opioid use, however, they did not want to hear that. They did not want to see me again, and requested other physician services. At one point, the charged towards me and the nurse with pointing fingers and threatened us. He threatened me that if I don't give her one time shot of IV opioid, he would file grievance against me. cc: MD NAHID Petersen
[2019-04-28] MEDS: NORCO-10 PO PRN ×3 (13:40→21:22)
[2019-04-28] MEDS: LASIX IV SCH ×2 (15:05→21:22)
--- NOTE | 2019-04-28 16:11 | Diag Imaging Result Doc PS360 ---
CT THORAX W/CONTRAST - 04/28/2019 INDICATION: pneumonia with suspected loculated effusion COMPARISON: Prior chest x-rays. CT from 01/26/2019 and 01/05/2019. FINDINGS: There is a small to moderate right pleural effusion. This appears to be free flowing. There is dense consolidation of the lateral portion of the right middle lobe which accounts for much of the opacity visible on the chest x-ray. There is diffuse pulmonary edema. There is cardiomegaly. There is a trace left pleural effusion. No significant adenopathy. Upper abdominal images are unremarkable. There are some subtle rib deformities of numerous anterior right ribs compatible with fractures. These are stable from prior. IMPRESSION: 1. Small to moderate, free-flowing right pleural effusion. 2. Dense consolidation of the lateral portion of the right middle lobe. 3. Cardiomegaly and pulmonary edema. Trace left pleural effusion. This exam was performed using automated exposure control, adjustment of mA or kV according to patient size, and/or use of iterative reconstruction technique Electronically signed by Wan Eddy 04/28/2019 4:09 PM
[2019-04-28 17:25] LABS: URINE SOURCE CATH
[2019-04-28 17:28] LABS: BILIRUBIN URINE NEGATIVE (NEGATIVE); BLOOD URINE NEGATIVE (NEGATIVE); COLOR STRAW; GLUCOSE URINE NEGATIVE (NEGATIVE); KETONE URINE NEGATIVE (NEGATIVE); LEUKOCYTES URINE NEGATIVE (NEGATIVE); NITRITE URINE NEGATIVE (NEGATIVE); PROTEIN URINE NEGATIVE (NEGATIVE); SP GRAVITY URINE 1.015; TURBIDITY URINE CLEAR (CLEAR); UROBILINOGEN URINE NORMAL (NORMAL)
[2019-04-28 17:29] LABS: UR EPITHELIAL CELLS <10 /HPF (<10); URINE BACTERIA NEGATIVE /HPF; URINE RBC <10 /HPF (<10); URINE WBC <10 /HPF (<10)
--- NOTE | 2019-04-28 19:02 | PROGRESS NOTE ---
DATE: 04/28/2019 SUBJECTIVE: This morning Ms. Gregory was seen by Dr. Yates. I understand because of her insistence and wanting to get pain medications, she decided to fire Dr. Yates, who asked me to see Ms. Gregory today. As I said, Ms. Gregory has already been seen. When I went to see Ms. Gregory, the was there. They were obviously more concerned about her pain management. I did not really see any acute indication to use opioids. Ms. Gregory said she has been on 10 mg of [place] 3 times per day, so I decided to put her back on her home regimen instead of the 5 that she was getting during the hospital course. Ms. Gregory is also in mild respiratory distress. Her x-rays have been concerning for worsening aeration in the right lung, so I ordered a CT scan of the chest, which shows a small to moderate free-flowing right pleural effusion. There was a dense consolidation in the lateral portion of the right middle lobe. Unsure if this is any aspiration issue. There was obviously cardiomegaly and pulmonary edema. The patient is being also seen by Pulmonary Medicine. ASSESSMENT AND PLAN: I think Ms. Gregory is on ideal management. We are going to continue with the management that has been instituted by Dr. Yates. Ms. Gregory is also being seen by Pulmonary Medicine. cc: Davin Traylor MD
[2019-04-28] MEDS: COREG PO SCH (21:22)
--- NOTE | 2019-04-28 22:08 | PULMONOLOGY PROGRESS NOTE ---
DATE: 04/28/2019 SUBJECTIVE: The patient is arousable. She has had some anger toward the hospitalist service today. Pain medicine negotiations have occurred frequently with her hospitalization. OBJECTIVE: The patient has been afebrile for the last 24 hours. Blood pressure 91/52, heart rate 57, respiratory rate 18, oxygen saturation 95% on 4 L per nasal cannula.HEENT: Pupils are equal and reactive. Oropharynx appears clear. Neck is supple. Chest reveals rhonchi bilaterally. Cardiac exam: S1, S2. Abdomen is soft. Extremities without edema. DIAGNOSTIC DATA: CT scan of the thorax is reviewed and reveals pneumonia in the right middle lobe, cardiomegaly, pulmonary edema, small right-sided effusion. IMPRESSION: A 58-year-old with: 1. Acute hypoxemic respiratory failure. 2. Chronic hypercapnic respiratory failure. 3. Acute pulmonary edema. 4. Acute cor pulmonale. 5. Community-acquired pneumonia. RECOMMENDATIONS: 1. Diuresis as tolerated. 2. Continue current antibiotic regimen, but consider expanding antibiotic coverage if she does not rapidly improve. 3. Recommend followup CT scan in 4-6 weeks. She did have a CT scan earlier this year without areas of concern in this area, making tumor less likely. 4. Continue to educate about smoking abstinence. 5. Pain management control per Dr. Traylor. cc: Indra Bowens MD
[2019-04-29] MEDS: NORCO-10 PO PRN ×4 (02:01→20:23)
[2019-04-29] MEDS: DUONEB (A & A) INH SCH ×6 (03:27→23:40)
[2019-04-29] MEDS: ROCEPHIN 1 GM in NS 50 ML IV SCH (03:50)
[2019-04-29] MEDS: SOLU-MEDROL IV SCH (05:48)
[2019-04-29 07:55] LABS: INR 4.79; PROTIME 46.6 Seconds (11.0-16.0)
[2019-04-29 08:42] LABS: CALCIUM 8.7 mg/dL (8.8-10.2); CREATININE 1.1 mg/dL (0.5-0.9); MAGNESIUM 1.8 mg/dL (1.5-2.7); POTASSIUM 4.7 mmol/L (3.5-5.1)
[2019-04-29] MEDS: KLONOPIN PO SCH ×3 (09:47→20:24)
[2019-04-29] MEDS: PROTONIX PO SCH (09:48)
[2019-04-29] MEDS: LASIX PO SCH (09:48)
[2019-04-29] MEDS: PLAVIX PO SCH (09:49)
[2019-04-29] MEDS: LIPITOR PO SCH (09:49)
[2019-04-29] MEDS: IMDUR PO SCH (09:49)
--- NOTE | 2019-04-29 15:06 | PROGRESS NOTE ---
DATE: 04/29/2019 SUBJECTIVE: When I evaluated this patient, she was sitting in the bed, she is complaining of generalized pain, especially her legs and back. She states that she has been having multiple surgeries and I need to see her scars, they are demanding, the patient and the , to increase the clonidine, she was taking 0.5 mg t.i.d. but a long time ago she was taking 1 mg p.o. t.i.d. and she decreased the dose to 0.5, she needs to increase the medication because she has been panicking, she states that she gets short of breath and now she is asking for the BiPAP machine. I had a really large conversation with the patient and the at the bedside. I told him that these medications including clonazepam and also the pain medication can decrease the respiratory drive and she can get worse instead of better, they said that is not going to happen to her and they are basically demanding to put this patient on clonazepam so she can get better, in the other hand, she is not walking too much at home. The said that just a little bit and when she is not in pain, and that is when she takes the pain medication, the patient is also complaining of mouth pain. She has really poor dentition. We tried to find out if we can get a dentist here, but we do not have any. I told the patient and the that if I see that she is having more respiratory problems, I need to cut down her medication again and they agree with that. Also, we will hold the warfarin today because she has a supratherapeutic INR. OBJECTIVE: Vital Signs: Temperature 97.5 degrees, pulse 67, respiratory rate 18, blood pressure 120/62, oxygen saturation 100% on the BiPAP machine. Neck: Supple. HEENT: Head normocephalic, no trauma. PERRLA. Mouth, she has poor dentition, some missing teeth and multiple cavities. Chest: Decreased breath sounds mostly in the right base with crackles and crepitus. Cardiovascular: RRR. Abdomen: Soft, nontender, nondistended. No hepatosplenomegaly. Extremities: No edema. No clubbing. No cyanosis, is painful to palpation. Neurological: The patient is alert. She is oriented x3. She is able to move in bed and she was able to lay flat and go back to the sitting position by herself. LABORATORY: PT 46.6, INR 4.79. Sodium 130, potassium 4.7, chloride 89, bicarbonate 25, BUN 27, creatinine 1.1, glucose 190, calcium 8.7. ASSESSMENT AND PLAN: 1. Assessment and plan acute hypoxemic and hypercarbic respiratory failure, likely this is a combination of acute pulmonary edema, pneumonia, as per the she has been on chronic oxygen at home around 4 L. We will continue with steroids. It looks like she also has COPD with exacerbation, so this respiratory failure is multifactorial. We will continue with same management. She is getting the BiPAP machine at this moment. CT scan of the chest showed [id number] free-flowing right pleural effusion, dense consolidation of the lateral portion of the right middle lobe, cardiomegaly, and pulmonary edema, trace left pleural effusion. 2. Acute pulmonary edema, vascular congestion, continue with Lasix. 3. History of paroxysmal atrial fibrillation, on warfarin, rate controlled. 4. Hypertension, stable, continue to monitor. 5. History of carotid endarterectomy and cerebrovascular accident. Aware. She does have generalized weakness. Continue with Plavix. 6. Chronic benzodiazepine and opiate use disorder, currently they are basically demanding to increase the dose of the benzodiazepine, she has been placed on pain medication already. She seems to be a bit better compared with yesterday, but she has been having panic attacks where she gets short of breath and anxious, as per the patient she was taking clonazepam 1 mg p.o. t.i.d. a long time ago and she decreased the dose by herself to 0.5 mg t.i.d., I will put her back on the medications, but if she gets worse, I told her and the that I need to decrease that again and they seemed to understand. I do feel that they are more worried about the pain medication and anxiety medication than the pneumonia and respiratory failure. 7. Systolic congestive heart failure. Her proBNP 7209, she is on Coreg. She is on Lipitor. She is not on ARBs or EDUARD inhibitors, probably due to her kidney function. I will monitor. Her ejection fraction 4 months ago was around 35 to 40 percent. 8. Community-acquired pneumonia on the right middle lobe, continue with antibiotics. Pulmonary Department following this patient. cc: Nadeem Stanton MD
[2019-04-29] MEDS: COREG PO SCH (20:24)
[2019-04-30] MEDS: NORCO-10 PO PRN ×4 (02:29→21:24)
[2019-04-30] MEDS: ROCEPHIN 1 GM in NS 50 ML IV SCH (03:03)
[2019-04-30] MEDS: DUONEB (A & A) INH SCH ×6 (03:27→23:20)
[2019-04-30] MEDS: ZOFRAN IV PRN (04:19)
--- NOTE | 2019-04-30 05:23 | PULMONOLOGY PROGRESS NOTE ---
DATE: 04/29/2019 SUBJECTIVE: The patient is on BiPAP. She is arousable but is withdrawn socially, and will turn away from the practitioner when she is questioned. She continues to negotiate her medications with the hospitalist with her . OBJECTIVE: Vital Signs: The patient has been afebrile for the last 24 hours. Blood pressure 100/53, heart rate 61, respiratory rate 18, and oxygen saturation 99%. HEENT: Pupils are equal and reactive. Oropharynx is clear, but evaluation is limited with BiPAP in place. Neck: Supple. Lungs: Chest reveals prolonged expiratory phase with scattered rhonchi. Cardiac: S1, S2. Abdomen: Obese and soft. Extremities: Reveal trace to 1+ peripheral edema. LABORATORIES: Sodium 130, potassium 4.7, chloride 89, bicarbonate 27, and creatinine 1.1. IMPRESSION: 1. A 58-year-old with chronic pain syndrome with ongoing demands for additional medications. 2. Acute hypoxemic respiratory failure. 3. Community-acquired pneumonia. 4. Chronic hypercapnic respiratory failure. 5. Acute cor pulmonale with pulmonary edema. PLAN: 1. Would hold diuresis given increasing BUN if it continues. 2. Continue antibiotics. 3. Continue to cycle BiPAP. 4. Ongoing pain management per hospitalist service. cc: Indra Bowens MD
[2019-04-30] MEDS: SOLU-MEDROL IV SCH (06:16)
--- NOTE | 2019-04-30 06:21 | Diag Imaging Result Doc PS360 ---
EXAM: CHEST-PORTABLE HISTORY: abnormal exam TECHNIQUE: Chest single view COMPARISON: 04/28/2019 FINDINGS: There is a small right pleural effusion. This is smaller than on the prior exam. Pulmonary edema persists. The heart is enlarged. There are infiltrates and atelectasis in the lower right lung with mild pulmonary edema. IMPRESSION: Interval improvement Electronically signed by Armaan Baldwin 04/30/2019 6:18 AM
[2019-04-30 10:14] LABS: HEMATOCRIT 37.7 % (37.0-47.0); HEMOGLOBIN 11.1 g/dL (12.0-16.0); MCH 24.7 PG (27-31); MCHC 29.4 g/dL (33-37); MPV 11.8 FL (7.4-10.4); RBC 4.49 XMIL (4.2-5.4); RDW 18.1 % (11.5-14.5); WBC 11.19 X1000 (4.8-10.8)
[2019-04-30 10:53] LABS: CALCIUM 8.4 mg/dL (8.8-10.2); CREATININE 1.2 mg/dL (0.5-0.9); POTASSIUM 4.7 mmol/L (3.5-5.1)
[2019-04-30] MEDS: KLONOPIN PO SCH ×2 (11:07→18:46)
[2019-04-30] MEDS: PLAVIX PO SCH (11:07)
[2019-04-30] MEDS: PROTONIX PO SCH (11:07)
[2019-04-30] MEDS: IMDUR PO SCH (11:07)
[2019-04-30] MEDS: LIPITOR PO SCH (11:08)
[2019-04-30] MEDS: LASIX PO SCH (11:08)
[2019-04-30] MEDS ORDERED: NS 500 ML IV ONE (13:15)
--- NOTE | 2019-04-30 13:47 | PROGRESS NOTE ---
DATE: 04/30/2019 SUBJECTIVE: As per the patient, she is feeling better. She seems to be really sleepy though. Her vital signs are stable. When I evaluated this patient, she was using the BiPAP machine. I will hold the furosemide. She does not seems to be overloaded, and the BUN and creatinine trending up a little bit. I will decrease the frequency of the pain medication from every 4 hours to every 6 hours. As per the patient, she takes narcotics 3 times a day. OBJECTIVE: Vital Signs: Temperature 98.1 degrees, pulse 69, respiratory rate 18, blood pressure 134/99, and oxygen saturation 100% on the BiPAP machine. HEENT: Head normocephalic. No trauma. PERRLA. Poor dentition. Neck: Supple. No JVD. No masses. Central trachea. Chest: Decreased breath sounds mostly in the right base with some crackles and crepitus. Cardiovascular: RRR. Abdomen: Soft, nontender, and nondistended. No hepatosplenomegaly. Extremities: No edema. No clubbing. No cyanosis. It is painful to palpation. Neurological: This patient is sleepy, but arousable. She is oriented x3. She is moving all 4 extremities spontaneously, but she is really slow and her answers are slow as well. She is able to answer my questions. LABORATORY: WBC 11.1, hemoglobin 11.1, hematocrit 37.7, and platelets 276,000. Sodium 130, potassium 4.7, chloride 87 bicarbonate 23, BUN 31, creatinine 1.2, glucose 159, and calcium 8.4. ASSESSMENT AND PLAN: 1. Acute hypoxemic and hypercarbic respiratory failure, multifactorial due to pulmonary edema and pneumonia. Apparently, she has been on chronic home O2 around 4 L. We will continue with steroids but probably I will decrease it tomorrow. It looks like she has also a history of COPD, and she is in exacerbation but this is getting better. CT of the chest showed small to moderate free-flowing right pleural effusion, and dense consolidation of the lateral portion of the right middle lobe, cardiomegaly, and pulmonary edema, trace left pleural effusion. 2. Acute pulmonary edema/vascular congestion. I will hold the Lasix for now. Her mouth looks a bit dry, so I will give her a little bit of fluids, only 500 mL of normal saline. 3. History of paroxysmal atrial fibrillation on warfarin. We will continue checking the PT/INR. 4. Hypertension stable. 5. History of carotic endarterectomy and cerebrovascular accident. Aware. She does have generalized weakness. Continue with Plavix. 6. Acute kidney injury. I will hold the diuretics, and I will give her a low dose of fluids. 7. Chronic benzodiazepine and opiate use disorder, I will decrease the frequency of the pain medication from every 4 hours to every 6 hours. As per the patient, she feels comfortable, but for me she is sleepy. She is answering the questions but she is really slow. She is not complaining of chest pain, but she is still short of breath. We will monitor. Vital signs seems to be stable. 8. Systolic congestive heart failure. Her proBNP 7209. She is on Coreg. She is on Lipitor. She has been on Lasix also, which has been stopped today. She is not on ARB's or EDUARD inhibitors, but probably she will need to be on those medications in the future. Her ejection fraction 4 months ago was around 35 to 40 percent. 9. Community-acquired pneumonia on the right middle lobe. Continue with antibiotics. Pulmonary Department following this patient. cc: Nadeem Stanton MD
[2019-04-30] MEDS ORDERED: COUMADIN PO SCH (21:00)
[2019-04-30] MEDS: COREG PO SCH (21:25)
--- NOTE | 2019-04-30 21:50 | PULMONOLOGY PROGRESS NOTE ---
DATE: 04/30/2019 SUBJECTIVE: The patient is awake and alert. She continues to have a wet cough. She reports she is getting out of bed. OBJECTIVE: Vital signs: Patient afebrile for the last 24 hours. Blood pressure 134/99, heart rate 69, respiratory rate 18, oxygen saturation 100% on 4 L per nasal cannula. HEENT: Pupils are equal and reactive. Oropharynx is clear. Neck: Supple. Chest: Coarse rhonchi bilaterally with decreased breath sounds, right base. Cardiac: S1, S2. Abdomen: Soft. Extremities: Without edema. LABORATORIES: Chest x-ray reveals right sided pneumonia with mild decrease in pulmonary edema. White blood count 11.1, hemoglobin 11.1, platelet count 276,000. Sodium 130, potassium 4.7, chloride 87, bicarbonate 23, BUN 31, creatinine 1.2. IMPRESSION: A 58-year-old with: 1. Community-acquired pneumonia. 2. Chronic pain syndrome. 3. Acute hypoxemic respiratory failure. 4. Chronic hypercapnic respiratory failure. 5. Acute cor pulmonale with pulmonary edema. PLAN: 1. Continue antibiotic regimen. 2. Continue bronchodilators. 3. Encourage patient to get out of bed, ambulate, and use incentive spirometry. 4. Anticipate followup chest x-ray on Friday morning. cc: Indra Bowens MD
[2019-05-01] MEDS: DUONEB (A & A) INH SCH ×6 (02:52→22:50)
[2019-05-01] MEDS: ROCEPHIN 1 GM in NS 50 ML IV SCH (04:16)
[2019-05-01] MEDS: KLONOPIN PO SCH ×3 (04:16→21:12)
[2019-05-01] MEDS: NORCO-10 PO PRN ×3 (04:16→17:46)
[2019-05-01] MEDS: SOLU-MEDROL IV SCH (06:34)
[2019-05-01 07:29] LABS: HEMATOCRIT 35.9 % (37.0-47.0); HEMOGLOBIN 10.6 g/dL (12.0-16.0); IMM GRAN# 0.03 X1000 (0.0-0.04); IMM GRAN% 0.3 % (0.0-0.5); LYMPH# 0.59 X1000 (1.2-3.4); LYMPH% 6.7 % (20.5-51.1); MCH 24.3 PG (27-31); MCHC 29.5 g/dL (33-37); MCV 82.3 FL (81-99); MONO# 0.85 X1000 (0.11-0.59); MONO% 9.7 % (1.7-9.3); MPV 12.3 FL (7.4-10.4); NEUT% 83.3 % (42.2-75.2); PLT 255 X1000 (130-400); RBC 4.36 XMIL (4.2-5.4); RDW 17.6 % (11.5-14.5); WBC 8.77 X1000 (4.8-10.8)
[2019-05-01 07:46] LABS: INR 4.49; PROTIME 44.2 Seconds (11.0-16.0)
[2019-05-01 07:49] LABS: ESTIMATED GFR > 60
[2019-05-01 07:52] LABS: AGAP 12; BUN 26 mg/dL (8-22); CALCIUM 8.9 mg/dL (8.8-10.2); CHLORIDE 85 mmol/L (98-107); COSMO 266; CREATININE 0.9 mg/dL (0.5-0.9); GLUCOSE 144 mg/dL (70-104); MAGNESIUM 1.7 mg/dL (1.5-2.7); POTASSIUM 4.5 mmol/L (3.5-5.1); SODIUM 129 mmol/L (136-145); TCO2 32 mmol/L (25-35)
[2019-05-01] MEDS: LIPITOR PO SCH (09:37)
[2019-05-01] MEDS: PLAVIX PO SCH (09:37)
[2019-05-01] MEDS: IMDUR PO SCH (09:37)
[2019-05-01] MEDS: PROTONIX PO SCH (09:37)
--- NOTE | 2019-05-01 10:39 | PROVIDER DOCUMENTATION ---
This chart was entered by [employer] Scribe, acting as scribe for Manuel Rosado MD. HPI-Respiratory General - General Chief Complaint: Shortness of Breath Stated Complaint: RESPIRATORY DISTRESS Time Seen by Provider: 04/26/19 22:15 Source: patient, EMS Allergies/Adverse Reactions: Patient Allergies Allergy/AdvReac Type Severity Reaction Status Date / Time levofloxacin [From Levaquin] Allergy Intermediate RASH Verified 04/26/19 22:09 NSAIDS (Non-Steroidal Allergy Unknown Unknown Verified 04/26/19 22:09 Anti-Inflamma Home Medications: Home Medication List Medication Instructions Recorded Confirmed Last Taken Type Clopidogrel Bisulfate [Plavix] 75 mg PO DAILY 03/22/18 04/27/19 07/06/18 History Pantoprazole [Protonix] 40 mg PO DAILY 10/09/18 04/27/19 Unknown History Albuterol Sulfate Inhaler 2 puff INH Q6H PRN PRN #1 inhaler 10/20/18 04/27/19 Unknown Rx [Ventolin Hfa] Atorvastatin Calcium 80 mg PO DAILY 12/11/18 04/27/19 Unknown History Clonazepam 0.5 mg PO TID 12/11/18 04/27/19 Unknown History Furosemide 120 mg PO DAILY 12/11/18 04/27/19 Unknown History Albuterol 2.5MG/Ipratrop 0.5MG 3 ml INH Q4H PRN PRN #90 neb 12/12/18 04/27/19 Unknown Rx [Duoneb (A & A)] Isosorbide Mononitrate [Isosorbide 1 tab PO DAILY 01/05/19 04/27/19 Unknown History Mononitrate ER] Warfarin Sodium 5 mg PO DAILY PRN 01/06/19 04/27/19 Unknown History Carvedilol [Coreg] 12.5 mg PO QPM 01/27/19 04/27/19 Unknown History Tizanidine HCl [Zanaflex] 4 mg PO BID PRN 01/27/19 04/27/19 Unknown History Hydrocodone/APAP 5 mg/325 mg 1 ea PO Q12HR PRN 04/27/19 04/27/19 Unknown History [Goode-5] Warfarin [Coumadin] 2.5 mg PO QHS 04/27/19 04/27/19 Unknown History - History of Present Illness-Resp Nature of Presenting Problem: Pt is a 58 yof who presents to the ED via EMS with a CC of shortness of breath. Pt reports using a nebulizer and cpap machine at home. Pt reports she had an oxygen saturation of 80% at home, so she called EMS. Pt reports a hx of COPD. Quality of Pain: reports: dull Severity in ED: reports: mild Onset/Duration: reports: 4-6 hours ago Timing: reports: still present Cough Quality/Degree: reports: mild Episode Frequency: occasional episodes Current Respiratory Medication Therapy: Initiated see nurses note Associated Symptoms: reports: shortness of breath Similar Symptoms Previously?: Yes Recently seen or treated by another doctor?: Yes Review of Systems - Adult - REVIEW OF SYSTEMS - ADULT Constitutional: reports: see HPI Eyes: reports: no symptoms reported Ears, Nose, Mouth & Throat: reports: no symptoms reported Cardiovascular: reports: no symptoms reported Respiratory: reports: see HPI, shortness of breath Gastrointestinal: reports: no symptoms reported Genitourinary: reports: no symptoms reported Musculoskeletal: reports: no symptoms reported Integumentary: reports: no symptoms reported Neurological: reports: no symptoms reported Psychiatric: reports: no symptoms reported Endocrine: reports: no symptoms reported Hematologic/Lymphatic: reports: no symptoms reported Allergic/Immunologic: reports: no symptoms reported All Other Systems: Reviewed and Negative Past History - Adult - PAST MEDICAL HISTORY-ADULT Review of Records: reports: Old Records Reviewed, Nursing Assessment Review, Medications Reviewed, Social history reviewed & non-contributory. Major Childhood Illnesses: reports: denies history Cardiovascular: reports: A-Fib, CAD, CHF, hyperlipidemia, MO (2 to 3x) Respiratory: reports: COPD, pneumonia (was treated last hospitalization), other (hx of respiratory failure, hypoxia, hypercarbia) Gastrointestinal: reports: GERD Obstetrical/Gynecological: reports: denies history Genitourinary: reports: denies history Musculoskeletal: reports: chronic pain Neurological: reports: CVA (x2 with complete neurologic recovery) Psychiatric: reports: anxiety Endocrine/Immune: reports: denies history Other Conditions: reports: denies history - PRIOR SURGERIES/PROCEDURES Surgical/Procedure History: reports: other, appendectomy, cholecystectomy - PRIOR HOSPITALIZATIONS Prior Hospitalizations: reports: for similar symptoms - IMMUNIZATION STATUS Childhood Immunizations: See Nurse Assessment Flu Vaccine: See Nurse Assessment - FAMILY HISTORY Family History: reviewed, not pertinent - SOCIAL HISTORY Smoking: denies, non-smoker, quit less than 1 year Substance Use: none/never, denies Alcohol Use Frequency: never Physical Exam-General - PHYSICAL EXAM-ADULT Initial Vital Signs Reviewed: Yes - CONSTITUTIONAL General Appearance: alert, mild distress - EYES Eyes: PERRL/EOMI - HEAD, EARS, NOSE, MOUTH & THROAT HENMT: moist mucous membranes - NECK Neck: non-tender, full range of motion - RESPIRATORY Respiratory: respiratory distress, decreased breath sounds - CARDIOVASCULAR Cardiovascular: normal peripheral pulses, regular rate, rhythm, no edema - GASTROINTESTINAL (ABDOMEN) Abdominal Exam: non tender, soft - MUSCULOSKELETAL Extremity: normal range of motion, non-tender - SKIN Integumentary: normal color, warm/dry - NEUROLOGIC Neurologic: grossly normal, no motor/sensory deficits - PSYCHIATRIC Psych/Mental Status: normal mood/affect, normal thought content, normal thought process, oriented x 3 Progress - PLAN OF CARE/RESULTS Progress/Plan/Lab Results: Orders Category Date Time Status Admit - [facility] Routine AdmDCTranf 04/27/19 03:45 Active Activity - Strict Bedrest ORDERED Care 04/27/19 03:45 Completed Call Admitting on Arrival AT ADMISSION Care 04/27/19 03:46 Completed Vital Signs Order ROUTINE Care 04/27/19 03:45 Active Z-Document. for Tele Applied ORDERED Care 04/27/19 03:47 Completed Clear Liquid Diet Diet 04/27/19 03:51 Completed CHEST-PORTABLE [RAD] Stat Exams 04/26/19 23:55 Completed ABG [RESP] Routine Lab 04/26/19 21:50 Completed BLOOD CULTURE [BLDCUL] Stat Lab 04/26/19 23:55 Results CBC WITH ELECTRONIC DIFF [HEME] Stat Lab 04/26/19 23:55 Completed COMPREHENSIVE METABOLIC PANEL [CHEM] Stat Lab 04/26/19 23:55 Completed D-DIMER [COAG] Stat Lab 04/26/19 23:55 Completed LACTATE, PLASMA [CHEM] Stat Lab 04/26/19 23:55 Completed PRO B-NATRIURETIC PEPTIDE Stat Lab 04/26/19 23:55 Completed Albuterol 2.5MG/Ipratrop 0.5MG [Duoneb (A & A)] Med 04/27/19 07:30 Discontinued 3 ml INH RTQ4H CefTRIAXONE [Rocephin] 1 gm Med 04/27/19 03:45 Active 0.9% Sodium Chloride Inj [Ns] 50 ml IV Q24H Methylprednisolone Sod Succ [Solu-Medrol] Med 04/27/19 03:45 Discontinued 125 mg IV Q6H Aerosol Treatments Routine Oth 04/27/19 03:53 Completed Aerosol Treatments Stat Oth 04/27/19 03:53 Completed BIPAP Stat Oth 04/26/19 22:22 Active Oxygen Device Stat Oth 04/27/19 03:45 Completed Telemetry [OM.EQ] Routine Oth 04/27/19 03:45 Active Transfer/Admit Order [TRANSFER] Routine Transfer 04/27/19 03:44 Completed Pt is refusing treatment in the ED. Pt reports she wants to leave AMA. See nurse's note for full assessment. Result Diagrams: 05/01/19 07:06 05/01/19 07:06 Departure - Departure Date of Disposition Decision: 04/27/19 Time of Disposition Decision: 05:33 DIAGNOSIS: COPD exacerbation Disposition: ADMITTED INPATIENT 09 Certified Medical Emergency: Emergent Condition: Serious - Critical Care Note This patient required my direct & personal management of CC.: No Attestation - Physician/ MANDO Attestation Patient care was provided by Advanced Practice Provider:: No The physician spent face to face time with patient:: Yes Advanced Practice Provider documentation review:: Supervising physician onsite and consulted in the evaluation and care of this patient. The physician did have a face to face encounter with the patient. This chart was documented by the indicated scribe, ([employer], Scribe) and accurately reflects the services I performed and decisions made by me, Manuel Rosado MD, as attested by the provider's signature.
--- NOTE | 2019-05-01 12:55 | PROGRESS NOTE ---
DATE: 05/01/2019 SUBJECTIVE: Today, apparently the patient seems to be feeling a little bit better. Again, today the patient seems to be a little bit better. She is still complaining of shortness of breath and now generalized weakness. She is still coughing, I talked to the patient about decreasing the dose of anxiety medication and pain medication but she wants to continue with that. I talked to her about that. I talked to her and the at the bedside and I explained to them that as an outpatient probably she cannot take both medications at the same time, probably she will need to take just one of them and we need to try to decrease the dose, they seem to understand. They want to be discharged home with those medications, and they will go with the primary care doctor and discuss about that, but at this time she is really anxious and she needs the medication. I have requested physical therapy and occupational therapy. I will continue with same management. I will hold the Lasix today also, and also I will hold today the warfarin and I will monitor the PT/INR. OBJECTIVE: Vital Signs: Temperature 98.5 degrees, pulse 64, respiratory rate 19, blood pressure 112/60, oxygen saturation 92 on 3 L of nasal cannula. HEENT: Head normocephalic, no trauma. PERRLA. Neck: Supple. No JVD. No masses. Central trachea. Chest: Decreased breath sounds mostly at the right base with some crackles and crepitus. Cardiovascular: RRR. Abdomen: Soft, nontender, nondistended. No hepatosplenomegaly. Extremities: No edema, no clubbing, no cyanosis. It is painful to palpation. Neurological: This patient is sleepy, but arousable. She is oriented x3. She is able to move all 4 extremities but she does have generalized weakness. LABORATORY: WBC 8.7, hemoglobin 10.6, hematocrit 35.9, platelets 255,000. INR 4.4. Sodium 129, potassium 4.5, chloride 85, bicarbonate 32, BUN 26, creatinine 0.9, glucose 144, calcium 8.9, magnesium 1.7. ASSESSMENT AND PLAN: 1. Acute hypoxemic and hypercarbic respiratory failure, multifactorial due to pulmonary edema and pneumonia, she has some chronic home oxygen around 4 L at home. We will continue with steroids but I will stop the IV treatment and I will start her on p.o. treatment, and I will decrease the dose slowly. 2. Chronic obstructive pulmonary disease exacerbation, as above. Continue with oxygen supplementation, antibiotics and steroids. 3. Acute pulmonary edema/vascular congestion. She has been getting Lasix, which has been stopped yesterday because of her acute kidney injury, kidney injury has been getting better, so probably I will put her back on her Lasix soon during this hospitalization. 4. History of paroxysmal atrial fibrillation, continue with warfarin which I will hold just for today and I will monitor the INR tomorrow. 5. Hypertension, stable. 6. History of carotid endarterectomy and cerebrovascular accident. Aware. She does have generalized weakness. Continue with Plavix. 7. Acute kidney injury. We are holding diuretics at this moment. Kidney function getting better. We will continue to monitor. 8. Chronic benzodiazepine and opiate use disorder, I had a really large conversation with this patient and the at the bedside about these medications, I told them that at some point, they need to stop one of them. Also they know that she cannot drive and actually she does not drive. I offered the possibility of decreasing the frequency and/or the amount of pain or anxiety medication but she got really anxious and she wanted to keep it that way, so I will monitor for now. 9. Systolic congestive heart failure. ProBNP was 7209. She is on Coreg. She is on Lipitor and she has been on Lasix which has been on hold, she is not on ARBs or EDUARD inhibitors, but probably we need to put this patient on those medications in the future. Her ejection fraction 4 months ago was around was around 35 to 40 percent. 10. Community-acquired pneumonia on the right middle lobe. Continue with antibiotics. Pulmonary Department on board. I do believe this patient is getting better. cc: Nadeem Stanton MD
--- NOTE | 2019-05-01 17:46 | PULMONOLOGY PROGRESS NOTE ---
DATE: 05/01/2019 SUBJECTIVE: The patient is awake, alert, and conversant. She has a slightly wet cough. She is sitting on the side of the bed today. OBJECTIVE: The patient has been afebrile for the last 24 hours. Respiratory rate 19, blood pressure 112/60, oxygen saturation 92%. HEENT: Pupils are equal and reactive. Oropharynx appears clear. Neck: Supple. Chest: Rhonchi bilaterally with decreased breath sounds in right base. Cardiac: S1, S2. Abdomen: Obese and soft. Extremities: Without edema. LABORATORIES: No new microbiology data. Sodium 129, potassium 4.5, chloride 85, bicarbonate 32, BUN 26, creatinine 0.9. White blood count 8.77, hemoglobin 10.6, platelet count 255,000. IMPRESSION: A 58-year-old with: 1. Community-acquired pneumonia. 2. Chronic pain syndrome. 3. Acute hypoxemic respiratory failure. 4. Chronic hypercapnic respiratory failure. 5. Pulmonary edema. PLAN: 1. Continue antibiotic regimen. 2. Continue bronchodilators. 3. Continue incentive spirometry and mobilization of this patient. 4. Two-view chest x-ray tomorrow. cc: Indra Bowens MD
[2019-05-01] MEDS: ZOFRAN IV PRN (17:48)
[2019-05-01] MEDS: COUMADIN PO SCH (21:10)
[2019-05-01] MEDS: PREDNISONE PO SCH (21:12)
[2019-05-01] MEDS: COREG PO SCH (21:12)
[2019-05-02] MEDS: NORCO-10 PO PRN ×3 (00:17→12:34)
[2019-05-02] MEDS: ZOFRAN IV PRN ×3 (01:52→13:46)
[2019-05-02] MEDS: ROCEPHIN 1 GM in NS 50 ML IV SCH (03:05)
[2019-05-02] MEDS: DUONEB (A & A) INH SCH ×6 (03:17→23:00)
[2019-05-02] MEDS: KLONOPIN PO SCH ×4 (05:56→23:22)
[2019-05-02 07:31] LABS: INR 3.71; PROTIME 37.9 Seconds (11.0-16.0)
[2019-05-02 07:39] LABS: CALCIUM 8.7 mg/dL (8.8-10.2); CREATININE 1.1 mg/dL (0.5-0.9); POTASSIUM 4.7 mmol/L (3.5-5.1)
[2019-05-02] MEDS: LIPITOR PO SCH (09:27)
[2019-05-02] MEDS: IMDUR PO SCH (09:27)
[2019-05-02] MEDS: PLAVIX PO SCH (09:30)
[2019-05-02] MEDS: PREDNISONE PO SCH ×2 (09:30→20:12)
[2019-05-02] MEDS: PROTONIX PO SCH (09:30)
--- NOTE | 2019-05-02 10:32 | Diag Imaging Result Doc PS360 ---
EXAM: CHEST-2 VIEWS 05/02/2019 HISTORY: abnormal exam TECHNIQUE: PA and lateral chest COMMENT: There is hazy opacity in the lower lung acosta particularly the right base laterally. The lungs are better expanded than they were on 04/30/2018 and the pulmonary opacities have improved. IMPRESSION: Improved pulmonary edema and/or pneumonia. Electronically signed by Rubén Leahy 05/02/2019 10:30 AM
--- NOTE | 2019-05-02 10:43 | PROGRESS NOTE ---
DATE: 05/02/2019 SUBJECTIVE: This patient is still complaining of shortness of breath. Now, she is coughing up some phlegm, as per the patient, sometimes brown and sometimes clear. She has not been walking or doing too much physical activity during this hospitalization. Physical Therapy and Occupational Therapy have been consulted already. I do believe this patient can be discharged in the next 24 to 48 hours. She is wheezing today. Pending x-ray of the chest. OBJECTIVE: Vital Signs: Temperature 98.3 degrees, pulse 91, respiratory rate 18, blood pressure 132/79, oxygen saturation 96 on 3 L of nasal cannula. HEENT: Head normocephalic. No trauma. PERRLA. Neck: Supple. No JVD. No masses. Central trachea. Chest: Decreased breath sounds globally, with prolonged expiratory phase, and she is having faint end expiratory wheezing today. Some crackles and crepitus at the bases, mostly on the right side. Abdomen: Soft, nontender, nondistended. No hepatosplenomegaly. Extremities: No edema, no clubbing, no cyanosis. It is painful to palpation. Neurological: The patient is awake, alert. She is following commands. She is oriented x3. She does have generalized weakness. LABORATORY DATA: PT 37.9, INR 3.71. Sodium 137, potassium 4.7, chloride 92, bicarbonate 29, BUN 26, creatinine 1.1, glucose 169, calcium 8.7. ASSESSMENT AND PLAN: 1. Acute hypoxemic respiratory failure, acute on chronic hypercarbic respiratory failure, multifactorial likely due to pulmonary edema and pneumonia, chronic obstructive pulmonary disease. She is on home oxygen, around 4 liters. We will continue with steroids by mouth, antibiotics, and breathing treatment. 2. Chronic obstructive pulmonary disease exacerbation as above. Continue oxygen supplementation, steroids, antibiotics, and pulmonary toilet. 3. Acute pulmonary edema/vascular congestion. She has been getting Lasix, which has been stopped due to her acute kidney injury. She has been having decent urine output. We will just monitor for now. I will continue holding the Lasix. 4. History of paroxysmal atrial fibrillation. Continue with warfarin. INR is slightly supratherapeutic. 5. Hypertension, stable. 6. History of carotid endarterectomy and cerebrovascular accident. Aware. 7. Acute kidney injury. Will continue to monitor. We are holding the Lasix for now. 8. Chronic benzodiazepine and opiate use disorder. Continue with the same management for now. 9. Systolic congestive heart failure. She is on Coreg, Lipitor, and she has been on Lasix, which has been on hold. I do not see any angiotensin-receptor jaime or angiotensin-converting enzyme inhibitors on her medications, but probably she will need to be on any of those medications in the near future. Her ejection fraction 4 months ago was around 35% to 40%. 10. Community-acquired pneumonia with right middle lobe infiltrates. Continue with antibiotics. Pulmonary Department on board. I believe this is getting better. I have been having large conversations with this patient about opiate and benzodiazepine use. I told the patient that we will need to start decreasing the doses of the pain medication and the benzodiazepines, and likely at some point, she needs to stop one of them. She states that she would like to stay with the same medications for now, and she will go to her primary care doctor, and start stopping her medications. I do believe this patient can be discharged probably in the next 48 hours, depending on her evolution on the x-ray, pending x-ray today. Every time I try to talk to them about the pain medication and the anxiety medication, she became really anxious. cc: Nadeem Stanton MD
[2019-05-02] MEDS: MIRALAX PO SCH ×2 (14:10→23:22)
--- NOTE | 2019-05-02 18:45 | PULMONOLOGY PROGRESS NOTE ---
DATE: 05/02/2019 SUBJECTIVE: The patient is awake and alert. She continues to have a slightly wet cough. OBJECTIVE: Vital Signs: The patient has been afebrile for the last 24 hours. Blood pressure 118/57, heart rate 96, respiratory rate 16, oxygen saturation 92%. HEENT: Pupils are equal and reactive. Oropharynx appears clear. Neck: Supple. Chest: Reveals rhonchi bilaterally with decreased breath sounds at right base. Cardiac: S1-S2. Abdomen: Soft. Extremities: Reveal trace edema. LABORATORIES: Chest x-ray reveals significant improvement in the right-sided pneumonia. IMPRESSION: A 58-year-old with: 1. Community-acquired pneumonia. 2. Chronic pain syndrome. 3. Acute hypoxemic respiratory failure. 4. Chronic hypercapnic respiratory failure. DISCUSSION: A 58-year-old with problems outlined above. She has clinically improved. RECOMMENDATIONS: 1. Continue antibiotics. 2. Continue bronchial hygiene. 3. Continue to mobilize patient. cc: Indra Bowens MD
[2019-05-02] MEDS: COUMADIN PO SCH (20:12)
[2019-05-02] MEDS: COREG PO SCH (20:12)
[2019-05-03] MEDS: DUONEB (A & A) INH SCH ×3 (03:05→11:46)
[2019-05-03] MEDS: ROCEPHIN 1 GM in NS 50 ML IV SCH (04:25)
[2019-05-03] MEDS: KLONOPIN PO SCH ×2 (06:37→13:30)
[2019-05-03 07:35] LABS: INR 2.63; PROTIME 28.9 Seconds (11.0-16.0)
[2019-05-03] MEDS: NORCO-10 PO PRN (07:51)
[2019-05-03 07:56] LABS: CALCIUM 8.2 mg/dL (8.8-10.2); CREATININE 1.1 mg/dL (0.5-0.9); MAGNESIUM 1.8 mg/dL (1.5-2.7); POTASSIUM 4.5 mmol/L (3.5-5.1)
[2019-05-03 07:58] VITALS: BP 150/90
[2019-05-03] MEDS: PREDNISONE PO SCH (09:21)
[2019-05-03] MEDS: LIPITOR PO SCH (09:21)
[2019-05-03] MEDS: PLAVIX PO SCH (09:21)
[2019-05-03] MEDS: PROTONIX PO SCH (09:21)
[2019-05-03] MEDS: MIRALAX PO SCH (09:22)
[2019-05-03] MEDS: IMDUR PO SCH (09:22)
--- NOTE | 2019-05-04 10:18 | DISCHARGE SUMMARY ---
ADMISSION DATE: 04/27/2019 DISCHARGE DATE: 05/03/2019 DISPOSITION: Home. FOLLOW-UP: 1. Dr. Vale Balderrama. 2. Dr. Rivas. CONSULTATIONS DURING THIS ADMISSION: Pulmonary was consulted. Patient was seen by Dr. Bowens. INVASIVE PROCEDURES DONE DURING THIS ADMISSION: None. IMAGING STUDIES OF SIGNIFICANCE: A chest x-ray showed moderate interstitial edema with mild to moderate size pleural effusion. A CT scan shows small to moderate free-flowing right pleural effusion, dense consolidation of the left portion on the right middle lobe. Subsequent chest x- ray shows improved edema and/or pneumonia. ASSESSMENT ON ADMISSION: 1. Acute on chronic respiratory failure. 2. Chronic obstructive pulmonary disease exacerbation. 3. Atrial fibrillation. 4. Hypertension. DIAGNOSES AT THE TIME OF DISCHARGE: 1. Acute on chronic hypoxemic respiratory failure. 2. Chronic obstructive pulmonary disease exacerbation. 3. Acute pulmonary edema with pleural effusion. 4. History of paroxysmal atrial fibrillation. 5. Congestive heart failure with ejection fraction of 35% to 40%. 6. Right upper lobe pneumonia, community-acquired versus aspiration pneumonia. 7. Chronic opioid and benzodiazepine use. 8. 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 DISCHARGE MEDICATIONS: 1. Clopidogrel 75 mg p.o. daily. 2. Pantoprazole 40 mg p.o. daily. 3. Furosemide 120 mg p.o. daily. 4. Atorvastatin 80 mg p.o. daily. 5. Isosorbide 30 mg. 6. Coumadin 5 mg p.o. daily. 7. Cefdinir 300 p.o. daily. 8. Prednisone 20 mg p.o. daily. 9. Both [place] and Klonopin have been withheld and patient has been advised to follow up with her primary care and discuss them before she resumes taking them. PRESENTING COMPLAINT: Shortness of breath. HISTORY OF PRESENTING COMPLAINT: Ms. Gregory is a 58-year-old female known to have COPD, hypertension, chronic opioid and narcotic use, a very frequent flyer to the hospital, came in because of shortness of breath. Patient was found to have some pulmonary congestion and also some infiltrate in the right upper lobe. She was admitted to the medical floor for further medical care. HOSPITAL COURSE: Ms. Gregory was admitted to the medical floor, was put on BiPAP for better oxygen therapy. During the hospital course Pulmonary Medicine was also consulted. Ms. Gregory progressively got better. Initially had a lot of demands on opioids and sedatives. She just wanted them all the time around the clock. At any case, she improved from a clinical standpoint. This morning she was actually off oxygen and she refers to be doing a lot better. Her fluid status seems to be significantly improved. She is not congested anymore. We think she is fairly stable to be discharged. Ms. Gregory herself is requesting that she be discharged because she feels a lot better. I think from a medical standpoint she is stable to be discharged. She has been counseled to start weaning off the narcotics and opioids and stay away from them since this seems to be causing the major part of her problems. All the discharge instructions have been discussed with Ms. Gregory and she voiced understanding. TIME SPENT FOR DISCHARGE: 38 minutes. cc: Davin Traylor MD
== END 2019-05-03 15:18 | disposition home or self-care (01) | DRG 190 ==
LOC: P.ED 22:04 → 3N 04-27 05:17 → SUATTDRO 04-27 05:17
PROVIDERS: ATTEND Internal Medicine

== ENCOUNTER 2019-05-24 04:55 | Inpatient (IN) ==
[2019-05-24] MEDS ORDERED: SOLU-MEDROL IV ONE (05:07)
[2019-05-24] MEDS ORDERED: DUONEB (A & A) INH ONE (05:07)
--- NOTE | 2019-05-24 05:12 | PROVIDER DOCUMENTATION ---
HPI-General Adult - General Chief Complaint: Shortness of Breath Stated Complaint: sob Time Seen by Provider: 05/24/19 04:58 Source: patient, EMS Allergies/Adverse Reactions: Patient Allergies Allergy/AdvReac Type Severity Reaction Status Date / Time levofloxacin [From Levaquin] Allergy Intermediate RASH Verified 05/24/19 05:26 NSAIDS (Non-Steroidal Allergy Unknown Unknown Verified 05/24/19 05:26 Anti-Inflamma Home Medications: Home Medication List Medication Instructions Recorded Confirmed Last Taken Type Clopidogrel Bisulfate [Plavix] 75 mg PO DAILY 03/22/18 05/24/19 07/06/18 History Pantoprazole [Protonix] 40 mg PO DAILY 10/09/18 05/24/19 Unknown History Albuterol Sulfate Inhaler 2 puff INH Q6H PRN PRN #1 inhaler 10/20/18 05/24/19 Unknown Rx [Ventolin Hfa] Atorvastatin Calcium 80 mg PO DAILY 12/11/18 05/24/19 Unknown History Furosemide 120 mg PO DAILY 12/11/18 05/24/19 Unknown History Albuterol 2.5MG/Ipratrop 0.5MG 3 ml INH Q4H PRN PRN #90 neb 12/12/18 05/24/19 Unknown Rx [Duoneb (A & A)] Isosorbide Mononitrate [Isosorbide 1 tab PO DAILY 01/05/19 05/24/19 Unknown History Mononitrate ER] Warfarin Sodium 5 mg PO DAILY PRN 01/06/19 05/24/19 Unknown History Carvedilol [Coreg] 12.5 mg PO QPM 01/27/19 05/24/19 Unknown History Tizanidine HCl [Zanaflex] 4 mg PO BID PRN 01/27/19 05/24/19 Unknown History Warfarin [Coumadin] 2.5 mg PO QHS 04/27/19 05/24/19 Unknown History Hydrocodone/APAP 5 mg/325 mg 1 ea PO Q12HR PRN #0 05/03/19 05/24/19 Unknown Rx [[place]-5] Prednisone 20 mg PO DAILY #5 tab 05/03/19 05/24/19 Unknown Rx Montelukast Sodium 10 mg PO DAILY 05/24/19 05/24/19 Unknown History - History of Present Illness -Gen Adult Nature of Presenting Problems: Pt presents with sob, pmh of COPD on home O2, pt felt worsening sob over the last day, acutely worse tonight, tried albuterol at home x 3, no improvement, pt called EMS and initial O2 sat in 70s, improved with NRB, pt denies f/c, oden, cp, cough, ap, n/v/d. pt is lying in bed in no acute distress. Location of Pain/Injury: reports: none Pain Radiation: reports: no radiation Quality of Pain: reports: none Onset/Duration: reports: 24 hours ago Timing: reports: still present Context/Activities at Onset: reports: none Modifying Factors: improves with: nothing Associated Symptoms: reports: shortness of breath Similar Symptoms Previously?: Yes Recently seen or treated by another doctor?: No Review of Systems - Adult - REVIEW OF SYSTEMS - ADULT Constitutional: reports: no symptoms reported Eyes: reports: no symptoms reported Ears, Nose, Mouth & Throat: reports: no symptoms reported Cardiovascular: reports: no symptoms reported Respiratory: reports: see HPI Gastrointestinal: reports: no symptoms reported Genitourinary: reports: no symptoms reported Musculoskeletal: reports: no symptoms reported Integumentary: reports: no symptoms reported Neurological: reports: no symptoms reported Psychiatric: reports: no symptoms reported Endocrine: reports: no symptoms reported Hematologic/Lymphatic: reports: no symptoms reported Allergic/Immunologic: reports: no symptoms reported All Other Systems: Reviewed and Negative Past History - Adult - PAST MEDICAL HISTORY-ADULT Review of Records: reports: Old Records Reviewed, Nursing Assessment Review, Medications Reviewed, Social history reviewed & non-contributory. Major Childhood Illnesses: reports: denies history Cardiovascular: reports: A-Fib, CAD, CHF, hyperlipidemia, [place] (2 to 3x) Respiratory: reports: COPD, pneumonia (was treated last hospitalization), other (hx of respiratory failure, hypoxia, hypercarbia) Gastrointestinal: reports: GERD Obstetrical/Gynecological: reports: denies history Genitourinary: reports: denies history Musculoskeletal: reports: chronic pain Neurological: reports: CVA (x2 with complete neurologic recovery) Psychiatric: reports: anxiety Endocrine/Immune: reports: denies history Other Conditions: reports: denies history - PRIOR SURGERIES/PROCEDURES Surgical/Procedure History: reports: other, appendectomy, cholecystectomy - PRIOR HOSPITALIZATIONS Prior Hospitalizations: reports: for similar symptoms - IMMUNIZATION STATUS Childhood Immunizations: See Nurse Assessment Flu Vaccine: See Nurse Assessment - FAMILY HISTORY Family History: reviewed, not pertinent Physical Exam-General - PHYSICAL EXAM-ADULT Initial Vital Signs Reviewed: Yes - CONSTITUTIONAL General Appearance: appears well - EYES Eyes: PERRL/EOMI - HEAD, EARS, NOSE, MOUTH & THROAT HENMT: normocephalic/atraumatic - NECK Neck: normal inspection - RESPIRATORY Respiratory: wheezing - CARDIOVASCULAR Cardiovascular: regular rate, rhythm - GASTROINTESTINAL (ABDOMEN) Abdominal Exam: normal bowel sounds, non tender, soft - LYMPHATIC Lymphatic: no adenopathy - MUSCULOSKELETAL Back Exam: normal inspection Extremity: normal range of motion - SKIN Integumentary: normal color - NEUROLOGIC Neurologic: grossly normal - PSYCHIATRIC Psych/Mental Status: normal mood/affect Progress - PLAN OF CARE/RESULTS Progress/Plan/Lab Results: Orders Category Date Time Status CHEST-1 VIEW [RAD] Stat Exams 05/24/19 05:06 Ordered ABG [RESP] Stat Lab 05/24/19 05:06 Ordered BLOOD CULTURE [BLDCUL] Stat Lab 05/24/19 05:08 Ordered CBC WITH ELECTRONIC DIFF [HEME] Stat Lab 05/24/19 05:06 Uncollected COMPREHENSIVE METABOLIC PANEL [CHEM] Stat Lab 05/24/19 05:06 Uncollected LACTATE, PLASMA [CHEM] Stat Lab 05/24/19 05:08 Uncollected PRO B-NATRIURETIC PEPTIDE Stat Lab 05/24/19 05:06 Uncollected TROPONIN T Stat Lab 05/24/19 05:06 Uncollected Albuterol 2.5MG/Ipratrop 0.5MG [Duoneb (A & A)] Med 05/24/19 05:07 Once 3 ml INH NOW ONE Methylprednisolone Sod Succ [Solu-Medrol] Med 05/24/19 05:07 Once 125 mg IV NOW ONE Aerosol Treatments Routine Oth 05/24/19 05:07 Ordered Aerosol Treatments Stat Oth 05/24/19 05:07 Ordered EKG [EKG] Stat Ther 05/24/19 04:57 Ordered Result Diagrams: 05/24/19 05:11 05/24/19 05:11 - CONSULTS/PCP/HOSPITALIST Notification #1 *Consult/PCP/Hospitalist*: d/w Stefany ROSAS, admit to Dr Cintron Time Discussed: 07:47 Consult Disposition: Admit Departure - Departure Date of Disposition Decision: 05/24/19 Time of Disposition Decision: 07:50 DIAGNOSIS: COPD with acute exacerbation, Pneumonia, CHF (congestive heart failure) Disposition: ADMITTED INPATIENT 09 Certified Medical Emergency: Emergent Condition: Stable - Critical Care Note This patient required my direct & personal management of CC.: No Attestation - Physician/ MANDO Attestation Patient care was provided by Advanced Practice Provider:: No The physician spent face to face time with patient:: Yes Advanced Practice Provider documentation review:: Supervising physician onsite and consulted in the evaluation and care of this patient. The physician did have a face to face encounter with the patient.
[2019-05-24 05:21] LABS: ALLEN TEST YES; BE 14.6 mmoll (-3.0-3.0); HCO3-(ACT) 35.3 mmoll (20.0-26.0); METHB 0.8 % (0.0-1.5); O2(CT) 8.4 mL/dL (15.0-23.0); SAMPLE BLOOD; SAO2 56.9 % (95.0-100.0); THB 11.2 g/dL (11.5-17.4); pH(98.6) 7.33 (7.35-7.45)
[2019-05-24 05:23] LABS: MODALITY BI PAP
[2019-05-24 05:26] LABS: PCO2(98.6) 83 mmHg (35-45)
[2019-05-24 05:27] LABS: PO2(98.6) 32 mmHg (60-100)
[2019-05-24 05:28] LABS: O2HB 53.4 % (95.0-99.0)
[2019-05-24 05:45] LABS: BASO# 0.01 X1000 (0.0-0.2); BASO% 0.2 % (0.0-0.8); EOS# 0.08 X1000 (0.0-0.7); EOS% 1.5 % (0.0-10.0); HEMATOCRIT 38.8 % (37.0-47.0); LYMPH% 16.9 % (20.5-51.1); MCH 23.9 PG (27-31); MCHC 28.4 g/dL (33-37); MCV 84.2 FL (81-99); MONO# 0.51 X1000 (0.11-0.59); MONO% 9.6 % (1.7-9.3); MPV 12.3 FL (7.4-10.4); NEUT# 3.83 X1000 (1.4-6.5); NEUT% 71.8 % (42.2-75.2); PLT 236 X1000 (130-400); RBC 4.61 XMIL (4.2-5.4); RDW 19.2 % (11.5-14.5); WBC 5.33 X1000 (4.8-10.8)
[2019-05-24 06:05] LABS: AGAP 12; ALB/GLOB RATIO 1.1; ALBUMIN 3.4 g/dL (3.5-5.0); ALKALINE PHOSPHATASE 104 U/L (32-104); BUN 11 mg/dL (8-22); CALCIUM 8.3 mg/dL (8.8-10.2); CHLORIDE 100 mmol/L (98-107); COSMO 301; CREATININE 0.8 mg/dL (0.5-0.9); ESTIMATED GFR > 60; GLUCOSE 202 mg/dL (70-104); GOT 51 U/L (10-30); GPT 44 U/L (10-36); POTASSIUM 4.2 mmol/L (3.5-5.1); SODIUM 149 mmol/L (136-145); TCO2 37 mmol/L (25-35); TOTAL BILIRUBIN 0.58 mg/dL (0.20-1.00); TOTAL PROTEIN 6.4 g/dL (6.3-8.3)
[2019-05-24] MEDS ORDERED: ZITHROMAX 500 MG/NS 500 MG/250 ML IVPB IV ONE (06:17)
[2019-05-24] MEDS ORDERED: ROCEPHIN 1 GM in NS 50 ML IV ONE (06:17)
--- NOTE | 2019-05-24 07:00 | Diag Imaging Result Doc PS360 ---
EXAM: CHEST-1 VIEW 05/24/2019 HISTORY: sob TECHNIQUE: AP portable semiupright chest at 0625 COMMENT: There continues to be alveolar opacity in the right base. The inspiration is less optimal than on 05/02/2019. Considering differences in inspiration this has not changed significantly. IMPRESSION: Pulmonary edema plus minus pneumonia right lower lobe. Electronically signed by Rubén Leahy 05/24/2019 6:57 AM
--- NOTE | 2019-05-24 07:41 | EKG Report ---
Test Performed on : 05/24/2019 05:25:37 AM Test Reason : SOB Blood Pressure : / mmHG Vent. Rate : 076 BPM Atrial Rate : 076 BPM P-R Int : 140 ms QRS Dur : 102 ms QT Int : 408 ms P-R-T Axes : 024 087 -39 degrees QTc Int : 459 ms Normal sinus rhythm. Lateral infarct (cited on or before 13-AUG-2018) Possible Inferior infarct (cited on or before 12-AUG-2018) Abnormal ECG When compared with ECG of 31-MAR-2019 06:38, No significant change was found Unconfirmed Result
[2019-05-24] MEDS ORDERED: LASIX IV ONE (07:51)
--- NOTE | 2019-05-24 08:55 | HISTORY AND PHYSICAL ---
Ms. Gregory is 58 years old. She has a history of COPD, hypertension, congestive heart failure, atrial fibrillation which is chronic. Last admission, she was here on 04/27/2019. She had a history of chronic opioid dependence. PAST SURGICAL HISTORY: Cholecystectomy, carotid endarterectomy, renal stent. ALLERGIES: Levofloxacin, nonsteroidal anti-inflammatory drugs. SOCIAL HISTORY: Former smoker. Denies any history of alcohol or illicit drugs but does have chronic pain syndrome. FAMILY HISTORY: Positive for coronary artery disease. REVIEW OF SYSTEMS: I am unable to elicit from her. did not report recent weight loss. He felt like she was retaining some fluid. She has been short of breath and was very weak. No report of fever or chills. No reported chest pain or tachy palpitations. Gastrointestinal and Genitourinary: No report of GI bleeding or trouble with urination. Endocrinologic/Hemologic: No significant history. Musculoskeletal/Neurologic: No reports of any focal changes. PHYSICAL EXAMINATION: VITAL SIGNS: In the emergency room, temperature 98 degrees, pulse 72, respirations 22, blood pressure 120/53. HEENT: Pupils are equal and round. LUNGS: Clear in all lung acosta. CARDIOVASCULAR EXAMINATION: Regular rhythm and rate without murmur or S3. ABDOMEN: Soft. Carotid radial pulses 2+ and symmetrical. No pedal edema appreciated. I do not appreciate any skin rash. No oral or nasal mucosa lesions. Height is 5 feet 2 inches, weight 135 pounds. LABORATORY DATA: White count 5330, hematocrit 38, platelet count 236,000. Sodium 149, potassium 4.2, chloride 100, BUN 11, creatinine 0.8. AST is 51, ALT is 44. ProBNP was 8294. ABGs, pH was 7.33, pCO2 was 83, PO2 was 32, O2 saturation was 53%. This was on 100% BiPAP with pressure 16/5. Chest x-ray, pulmonary edema plus/minus pneumonia in the right lower lobe. ASSESSMENT AND PLAN: 1. Pulmonary venous hypertension. It looks like she has pneumonia. She has had frequent admissions for respiratory issues. We will put her on antibiotics to cover pneumococcus and I think gram-negative. We will give her bronchodilators, supplementary oxygen, probably start a steroid inhaler as well. She does not appear to have a lot of bronchospasm at this time. I do not think I will put her on much in the way of Solu-Medrol. 2. Atrial fibrillation, which apparently is chronic, paroxysmal. She appears to be in sinus rhythm at this time. We will continue her Coumadin. Her prothrombin time, we need to check. We probably need to check a prothrombin time daily for 4 days. 3. Chronic obstructive pulmonary disease and would consider this exacerbation of chronic obstructive pulmonary disease. We will follow her electrolytes. Check a magnesium in the morning. Check T4, TSH, B12, a folate. 4. History of hypertension. 5. She has had chronic pain syndrome and was on opioids for a time. I do not think she is on at the present time but we probably ought to get a urine drug screen. She is on hydrocodone 5 mg every 12 hours. We will diurese her with some Lasix. It looks like she was taking 120 mg of Lasix once a day. I think they had recently stopped it, according to her 's report. Renal function looks good so we will go with 40 mg intravenous Lasix every 12 hours. cc: Kirk Cintron MD
[2019-05-24 09:21] LABS: INR 5.91; PROTIME 55.1 Seconds (11.0-16.0)
[2019-05-24 09:26] LABS: FREE T4 1.26 ng/dL (0.93-1.70); TSH 1.38 uIUmL (0.27-4.20)
[2019-05-24] MEDS: SINGULAIR PO SCH (10:50)
[2019-05-24] MEDS ORDERED: TYLENOL PO PRN (10:50)
[2019-05-24] MEDS ORDERED: VENTOLIN HFA INH PRN (10:50)
[2019-05-24] MEDS ORDERED: COUMADIN PO SCH ×2 (10:50→21:00)
[2019-05-24 11:41] LABS: BLOOD TYPE VENOUS
[2019-05-24] MEDS: IMDUR PO SCH (11:51)
[2019-05-24] MEDS: LIPITOR PO SCH (11:51)
[2019-05-24] MEDS: PREDNISONE PO SCH (11:52)
[2019-05-24] MEDS: PLAVIX PO SCH (11:52)
[2019-05-24] MEDS: PROTONIX PO SCH (11:52)
[2019-05-24] MEDS ORDERED: DUONEB (A & A) ONE (13:30)
[2019-05-24] MEDS: DUONEB (A & A) INH SCH ×4 (13:36→23:43)
[2019-05-24] MEDS: NORCO-5 PO PRN (17:58)
[2019-05-24] MEDS: COREG PO SCH (22:34)
[2019-05-24] MEDS: LASIX IV SCH (22:34)
[2019-05-24] MEDS: ZANAFLEX PO PRN (22:34)
[2019-05-24 22:36] LABS: URINE SOURCE CATH
[2019-05-24 22:39] LABS: BILIRUBIN URINE NEGATIVE (NEGATIVE); BLOOD URINE NEGATIVE (NEGATIVE); COLOR YELLOW; GLUCOSE URINE NEGATIVE (NEGATIVE); KETONE URINE NEGATIVE (NEGATIVE); LEUKOCYTES URINE NEGATIVE (NEGATIVE); NITRITE URINE NEGATIVE (NEGATIVE); PROTEIN URINE TRACE mg/dL (NEGATIVE); TURBIDITY URINE CLEAR (CLEAR); UR EPITHELIAL CELLS <10 /HPF (<10); URINE BACTERIA NEGATIVE /HPF; URINE RBC <10 /HPF (<10); URINE WBC <10 /HPF (<10); UROBILINOGEN URINE NORMAL (NORMAL)
[2019-05-24] MEDS ORDERED: CALMOSEPTINE OINTMENT TOP PRN (23:21)
[2019-05-25] MEDS: DUONEB (A & A) INH SCH ×6 (03:31→23:43)
[2019-05-25] MEDS: ROCEPHIN 1 GM in NS 50 ML IV SCH (05:36)
[2019-05-25 06:06] LABS: HEMATOCRIT 32.2 % (37.0-47.0); HEMOGLOBIN 9.4 g/dL (12.0-16.0); LYMPH% 13.4 % (20.5-51.1); MCH 23.9 PG (27-31); MCHC 29.2 g/dL (33-37); MCV 81.9 FL (81-99); MONO# 0.56 X1000 (0.11-0.59); MONO% 10.7 % (1.7-9.3); MPV 12.4 FL (7.4-10.4); NEUT# 3.97 X1000 (1.4-6.5); NEUT% 75.9 % (42.2-75.2); PLT 230 X1000 (130-400); RBC 3.93 XMIL (4.2-5.4); RDW 18.8 % (11.5-14.5); WBC 5.23 X1000 (4.8-10.8)
[2019-05-25 06:22] LABS: INR 5.19; PROTIME 49.7 Seconds (11.0-16.0)
[2019-05-25 06:43] LABS: AGAP 14; BUN 17 mg/dL (8-22); CALCIUM 7.8 mg/dL (8.8-10.2); CHLORIDE 97 mmol/L (98-107); COSMO 292; CREATININE 0.9 mg/dL (0.5-0.9); ESTIMATED GFR > 60; GLUCOSE 122 mg/dL (70-104); POTASSIUM 3.1 mmol/L (3.5-5.1); SODIUM 145 mmol/L (136-145); TCO2 34 mmol/L (25-35)
[2019-05-25] MEDS: NORCO-5 PO PRN ×2 (09:05→20:56)
[2019-05-25] MEDS: PROTONIX PO SCH (09:05)
[2019-05-25] MEDS: PLAVIX PO SCH (09:05)
[2019-05-25] MEDS: PREDNISONE PO SCH (09:05)
[2019-05-25] MEDS: SINGULAIR PO SCH (09:05)
[2019-05-25] MEDS: LIPITOR PO SCH (09:06)
[2019-05-25] MEDS: IMDUR PO SCH (09:06)
[2019-05-25] MEDS: LASIX IV SCH ×2 (09:06→20:51)
[2019-05-25] MEDS: ZANAFLEX PO PRN ×2 (09:13→22:56)
[2019-05-25] MEDS: ZITHROMAX 500 MG/NS 500 MG/250 ML IVPB IV SCH (11:40)
--- NOTE | 2019-05-25 12:45 | PROGRESS NOTE ---
DATE: 05/25/2019 SUBJECTIVE: She was resting comfortably on BiPAP. She states she feels like she is breathing better. OBJECTIVE: Vital Signs: She has remained afebrile, temperature 97.5 degrees, pulse 67, respirations 19, blood pressure 114/82. HEENT: Pupils are equal and round. Lungs: Clear in all lung acosta. Cardiovascular: Regular rhythm and rate without murmur or S3. Urine output was 3000 mL. ASSESSMENT AND PLAN: 1. Pulmonary venous hypertension. It looks like underlying pneumonia. Seems to be feeling a little better. We put her on broad-spectrum antibiotics. Cultures are pending. Blood cultures were drawn yesterday. Continue bronchodilators and present supplementary oxygen. 2. Atrial fibrillation. History of paroxysmal atrial fibrillation. Rate has been controlled. She is on Coumadin. Her prothrombin time was high, so we need to hold the Coumadin. 3. Chronic obstructive pulmonary disease with exacerbation. She has chronic hypoxemia. Her chemistries on presentation were unremarkable. Sodium and potassium look good. 4. History of hypertension. 5. Chronic pain syndrome. We will stop the Coumadin. cc: Kirk Cintron MD
[2019-05-25] MEDS ORDERED: KLONOPIN PO SCH (17:00)
[2019-05-25] MEDS: COREG PO SCH (20:51)
[2019-05-25] MEDS: KLONOPIN PO SCH (20:52)
[2019-05-26] MEDS: DUONEB (A & A) INH SCH ×6 (03:43→23:13)
[2019-05-26] MEDS: ROCEPHIN 1 GM in NS 50 ML IV SCH (05:35)
[2019-05-26 06:26] LABS: INR 4.48; PROTIME 44.2 Seconds (11.0-16.0)
[2019-05-26] MEDS: LIPITOR PO SCH (08:51)
[2019-05-26] MEDS: PROTONIX PO SCH (08:51)
[2019-05-26] MEDS: IMDUR PO SCH (08:51)
[2019-05-26] MEDS: ZITHROMAX 500 MG/NS 500 MG/250 ML IVPB IV SCH (08:51)
[2019-05-26] MEDS: PLAVIX PO SCH (08:51)
[2019-05-26] MEDS: LASIX IV SCH ×2 (08:51→20:47)
[2019-05-26] MEDS: NORCO-5 PO PRN ×3 (08:52→20:47)
[2019-05-26] MEDS: KLONOPIN PO SCH ×3 (08:52→20:47)
[2019-05-26] MEDS: SINGULAIR PO SCH (08:53)
[2019-05-26] MEDS: PREDNISONE PO SCH (08:53)
--- NOTE | 2019-05-26 13:11 | PROGRESS NOTE ---
DATE: 05/26/2019 SUBJECTIVE: She is better. She is more awake. She is complaining of pain, mainly in her teeth and her mouth. Remained afebrile. OBJECTIVE: Temperature is 97.3 degrees, pulse 68, respirations 20, blood pressure 97/56. Pupils are equal and round. Lungs are clear in all lung acosta. Cardiovascular Examination: Regular rhythm and rate without murmurs or S3. Urine output is 5800 mL. ASSESSMENT AND PLAN: 1. Pulmonary venous hypertension, some underlying pneumonia. Treating her with broad-spectrum antibiotics. She is more awake and breathing a little more comfortably. She is supposed to be wearing CPAP at night. We are using BiPAP as needed. 2. Atrial fibrillation. Her rate is controlled. She is on Coumadin. Her prothrombin time was high so I stopped her Coumadin. Her PT was 49, INR was 5.9, so we will continue to follow that. 3. Underlying chronic obstructive pulmonary disease with chronic obstructive pulmonary disease exacerbation. 4. Chronic pain syndrome. She is requesting stronger pain medicines. She says the [place] does not do anything but I do not want to put her on high-dose opioid pain medicines so I will let her have some [place] 5 mg by mouth every 6 hours as needed for pain. cc: Kirk Cintron MD
[2019-05-26] MEDS: ZANAFLEX PO PRN (19:16)
[2019-05-26] MEDS: COREG PO SCH (20:47)
[2019-05-27] MEDS: ZOFRAN IV PRN ×2 (03:03→09:41)
[2019-05-27] MEDS: DUONEB (A & A) INH SCH ×3 (03:25→11:32)
[2019-05-27] MEDS: NORCO-5 PO PRN (03:49)
[2019-05-27] MEDS: ROCEPHIN 1 GM in NS 50 ML IV SCH (05:14)
[2019-05-27 06:15] LABS: INR 2.4; PROTIME 26.8 Seconds (11.0-16.0)
[2019-05-27] MEDS: KLONOPIN PO SCH (08:55)
[2019-05-27] MEDS: PROTONIX PO SCH (08:55)
[2019-05-27] MEDS: ZITHROMAX 500 MG/NS 500 MG/250 ML IVPB IV SCH (08:55)
[2019-05-27] MEDS: SINGULAIR PO SCH (08:55)
[2019-05-27] MEDS: PREDNISONE PO SCH (08:56)
[2019-05-27] MEDS: PLAVIX PO SCH (08:56)
[2019-05-27] MEDS: LASIX IV SCH (08:56)
[2019-05-27] MEDS: LIPITOR PO SCH (08:56)
[2019-05-27] MEDS: IMDUR PO SCH (08:56)
--- NOTE | 2019-05-27 09:50 | PROGRESS NOTE ---
DATE: 05/27/2019 Ms. Gregory looks much better. She is sitting up and she has her purse on her bed and she is wanting to go home today. She had a good night's sleep last night. OBJECTIVE: Vital Signs: Temp 98 degrees, pulse 76, respirations 16, blood pressure 113/64. HEENT: Pupils are equal and round. Lungs: Are clear in all lung acosta. Cardiovascular: Regular rhythm and rate without murmur or S3. Abdomen: Is soft. Skin: Is warm and dry. Urine output is 6800 mL. ASSESSMENT AND PLAN: 1. Pulmonary venous hypertension, underlying pneumonia seems to be better. She is on broad- spectrum antibiotics. We are using BiPAP at night. She has a CPAP at home. Breathing air and gas exchange improved. 2. Atrial fibrillation, rate is controlled. She is on Coumadin. We had held her Coumadin, pro time, got up a little high. So pro time down to 26 at this point so we will restart her Coumadin. I believe she was on 2.5 mg at bedtime, so we will restart that. 3. COPD. I would classify this is a COPD exacerbation. I believe that she gets lethargic. She has poor pulmonary cough and clearance with her pain medicine. I explained that to her. She has cut back on her pain medicine. 4. Chronic pain syndrome. She says she is going to cut it back to just taking it once a day. We will take her Leary catheter out, see how we do and maybe she can go home today. cc: Kirk Cintron MD
[2019-05-27 11:33] VITALS: BP 117/49
--- NOTE | 2019-07-16 14:04 | DISCHARGE SUMMARY ---
ADMISSION DATE: 05/24/2019 DISCHARGE DATE: 05/27/2019 PRIMARY CARE PHYSICIAN: She has no primary care physician. PAST MEDICAL HISTORY: She has a history of COPD, hypertension, congestive heart failure, atrial fibrillation which is chronic. Last admission was on 05/28/2019. She had a history of chronic opioid dependence. PAST SURGICAL HISTORY: Cholecystectomy, carotid endarterectomy, and renal stent. ALLERGIES: Levofloxacin and nonsteroidal anti-inflammatory drugs. HOSPITAL COURSE: 1. She was admitted with pulmonary venous hypertension and suspect she may have pneumonia. She has had frequent episodes and admissions for respiratory issues, put on antibiotics to cover for pneumococcus as well as gram-negative, gave her bronchodilators, and started her on a steroid inhaler. 2. Atrial fibrillation. She has chronic atrial fibrillation versus chronic paroxysmal. She is continued on Coumadin, and follow ProTime. 3. COPD. Consider COPD exacerbation with possible pneumonia. 4. Hypertension. 5. Chronic pain syndrome on opioids. She was admitted. Chest x-ray 05/24 pulmonary edema plus/minus pneumonia right lower lobe. She felt progressively better, and we continued broad-spectrum antibiotics. She used BiPAP as needed, and then was able to come off of oxygen. She was only using BiPAP at night. Apparently, she has a CPAP at home. Air and gas exchange improved. Her Coumadin was up a little bit high so restarted her Coumadin when her ProTime came down. She was taking 2.5 mg of Coumadin at bedtime, and felt she was ready for discharge on 05/27. She removed the IV herself, and got inpatient, and she left. I think they called me and I told her she could go home. She has everything at home, and we stopped her antibiotics. MEDICATIONS: Her home medicines: She takes albuterol. She has a Ventolin inhaler and DuoNeb. I think a nebulizer at home. Carvedilol which is Coreg 25 mg every morning, and then she also takes Coreg 12.5 mg every evening. Klonopin 0.5 mg t.i.d., Plavix 75 mg a day, Lasix 120 mg p.o. daily. Apparently, she takes hydrocodone 5 mg p.o. q.12 hours, Protonix 40 mg a day, Zanaflex 4 mg b.i.d. p.r.n., and Coumadin 2.5 mg at bedtime. cc: Kirk Cintron MD
== END 2019-05-27 14:16 | disposition home or self-care (01) | DRG 194 ==
LOC: ED 04:55 → EDIPHOLD 08:39 → 2N 20:29
PROVIDERS: ATTEND Emergency Medicine

== ENCOUNTER 2019-06-15 04:45 | Inpatient (IN) ==
[2019-06-15] MEDS ORDERED: NS 1,000 ML IV ONE (05:07)
[2019-06-15] MEDS ORDERED: VANCOMYCIN 1 GM/NS 1 GM/250 ML IVPB IV ONE (05:07)
[2019-06-15] MEDS ORDERED: NS 500 ML IV ONE (05:07)
[2019-06-15] MEDS ORDERED: MAXIPIME 2 GM in NS 100 ML IV ONE (05:07)
[2019-06-15 05:56] LABS: ALLEN TEST YES; BE 5.4 mmoll (-3.0-3.0); BLOOD TYPE ARTERIAL; HCO3-(ACT) 28.3 mmoll (20.0-26.0); METHB 0.3 % (0.0-1.5); O2(CT) 9.7 mL/dL (15.0-23.0); SAMPLE BLOOD; SAO2 61.6 % (95.0-100.0); THB 11.6 g/dL (11.5-17.4); pH(98.6) 7.36 (7.35-7.45)
[2019-06-15 05:58] LABS: MODALITY BI PAP
[2019-06-15 06:01] LABS: PCO2(98.6) 57 mmHg (35-45)
[2019-06-15 06:02] LABS: O2HB 59.3 % (95.0-99.0); PO2(98.6) 33 mmHg (60-100)
[2019-06-15 06:16] LABS: BASO# 0.06 X1000 (0.0-0.2); BASO% 0.6 % (0.0-0.8); EOS# 0.06 X1000 (0.0-0.7); EOS% 0.6 % (0.0-10.0); HEMATOCRIT 39.4 % (37.0-47.0); HEMOGLOBIN 11.4 g/dL (12.0-16.0); IMM GRAN# 0.02 X1000 (0.0-0.04); IMM GRAN% 0.2 % (0.0-0.5); LYMPH# 1.16 X1000 (1.2-3.4); LYMPH% 11.8 % (20.5-51.1); MCH 23.5 PG (27-31); MCHC 28.9 g/dL (33-37); MCV 81.1 FL (81-99); MONO# 0.81 X1000 (0.11-0.59); MONO% 8.3 % (1.7-9.3); MPV 12.3 FL (7.4-10.4); NEUT# 7.69 X1000 (1.4-6.5); NEUT% 78.5 % (42.2-75.2); PLT 236 X1000 (130-400); RBC 4.86 XMIL (4.2-5.4); RDW 20.5 % (11.5-14.5)
--- NOTE | 2019-06-15 06:28 | PROVIDER DOCUMENTATION ---
HPI-Respiratory General - General Chief Complaint: Shortness of Breath Stated Complaint: SOB Time Seen by Provider: 06/15/19 05:02 Source: patient Unable to obtain history due to:: other (condition, on CPAP) Allergies/Adverse Reactions: Patient Allergies Allergy/AdvReac Type Severity Reaction Status Date / Time levofloxacin [From Levaquin] Allergy Intermediate RASH Verified 06/10/19 00:14 NSAIDS (Non-Steroidal Allergy Unknown Unknown Verified 06/10/19 00:14 Anti-Inflamma Home Medications: Home Medication List Medication Instructions Recorded Confirmed Last Taken Type Clopidogrel Bisulfate [Plavix] 75 mg PO DAILY 03/22/18 06/10/19 07/06/18 History Pantoprazole [Protonix] 40 mg PO DAILY 10/09/18 06/10/19 Unknown History Albuterol Sulfate Inhaler 2 puff INH Q6H PRN PRN #1 inhaler 10/20/18 06/10/19 Unknown Rx [Ventolin Hfa] Atorvastatin Calcium 80 mg PO DAILY 12/11/18 06/10/19 Unknown History Furosemide 120 mg PO DAILY 12/11/18 06/10/19 Unknown History Albuterol 2.5MG/Ipratrop 0.5MG 3 ml INH Q4H PRN PRN #90 neb 12/12/18 06/10/19 Unknown Rx [Duoneb (A & A)] Isosorbide Mononitrate [Isosorbide 1 tab PO DAILY 01/05/19 06/10/19 Unknown History Mononitrate ER] Warfarin Sodium 5 mg PO DAILY PRN 01/06/19 06/10/19 Unknown History Carvedilol [Coreg] 12.5 mg PO QPM 01/27/19 06/10/19 Unknown History Tizanidine HCl [Zanaflex] 4 mg PO BID PRN 01/27/19 06/10/19 Unknown History Warfarin [Coumadin] 2.5 mg PO QHS 04/27/19 06/10/19 Unknown History Hydrocodone/APAP 5 mg/325 mg 1 ea PO Q12HR PRN #0 05/03/19 06/10/19 Unknown Rx [[place]-5] Prednisone 20 mg PO DAILY #5 tab 05/03/19 06/10/19 Unknown Rx Montelukast Sodium 10 mg PO DAILY 05/24/19 06/10/19 Unknown History Methylprednisolone [Medrol Dosepak] 4 mg PO DIRECTED #1 pkg 06/10/19 Unknown Rx - History of Present Illness-Resp Nature of Presenting Problem: SOB for 2 days, cough. has CP only with cough, no fever Quality of Pain: reports: none Severity in ED: reports: severe Timing: reports: getting worse Review of Systems - Adult - REVIEW OF SYSTEMS - ADULT Constitutional: reports: no symptoms reported Eyes: reports: no symptoms reported Ears, Nose, Mouth & Throat: reports: no symptoms reported Cardiovascular: reports: no symptoms reported Respiratory: reports: see HPI Gastrointestinal: reports: no symptoms reported Genitourinary: reports: no symptoms reported Musculoskeletal: reports: no symptoms reported Integumentary: reports: no symptoms reported Neurological: reports: no symptoms reported Psychiatric: reports: no symptoms reported Endocrine: reports: no symptoms reported Hematologic/Lymphatic: reports: no symptoms reported Allergic/Immunologic: reports: no symptoms reported Past History - Adult - PAST MEDICAL HISTORY-ADULT Review of Records: reports: Medications Reviewed Major Childhood Illnesses: reports: denies history Cardiovascular: reports: A-Fib, CAD, CHF, hyperlipidemia, [place] (2 to 3x) Respiratory: reports: COPD, pneumonia (was treated last hospitalization), other (hx of respiratory failure, hypoxia, hypercarbia) Gastrointestinal: reports: GERD Obstetrical/Gynecological: reports: denies history Genitourinary: reports: denies history Musculoskeletal: reports: chronic pain Neurological: reports: CVA (x2 with complete neurologic recovery) Psychiatric: reports: anxiety Endocrine/Immune: reports: denies history Other Conditions: reports: denies history - PRIOR SURGERIES/PROCEDURES Surgical/Procedure History: reports: other, appendectomy, cholecystectomy - PRIOR HOSPITALIZATIONS Prior Hospitalizations: reports: for similar symptoms - IMMUNIZATION STATUS Childhood Immunizations: See Nurse Assessment Flu Vaccine: See Nurse Assessment - FAMILY HISTORY Family History: reviewed, not pertinent Physical Exam-General - PHYSICAL EXAM-ADULT Initial Vital Signs Reviewed: Yes - CONSTITUTIONAL General Appearance: alert, moderate distress - EYES Eyes: PERRL/EOMI, pink conjunctivae - HEAD, EARS, NOSE, MOUTH & THROAT HENMT: normocephalic/atraumatic, moist mucous membranes, normal ENT inspection, pharynx normal - NECK Neck: full range of motion, supple - RESPIRATORY Respiratory: other (diffuse rhonchi, expir wheezes) - CARDIOVASCULAR Cardiovascular: tachycardia - GASTROINTESTINAL (ABDOMEN) Abdominal Exam: non tender, soft - MUSCULOSKELETAL Back Exam: normal inspection, no CVA tenderness, no vertebral tenderness Extremity: normal range of motion, non-tender, normal inspection - SKIN Integumentary: normal color, normal turgor, warm/dry - NEUROLOGIC 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, grossly normal, no motor/sensory deficits - PSYCHIATRIC Psych/Mental Status: normal mood/affect, normal thought content, normal thought process - HEART Score HEART Score: History: Slightly Suspicious HEART Score: Age: 45-65 Years HEART Score: Risk Factors for Atherosclerotic Disease: > or = 3 Risk Factors or History of Atherosclerotic Disease Progress - PLAN OF CARE/RESULTS Progress/Plan/Lab Results: Vital Signs - 8 hr 06/15/19 05:36 Pulse Rate 124 H Respiratory Rate 26 H Blood Pressure 94/58 Laboratory Results - last 24 hr 06/15/19 06/15/19 06/15/19 05:47 05:56 05:56 WBC 9.80 RBC 4.86 Hgb 11.4 L Hct 39.4 MCV 81.1 MCH 23.5 L MCHC 28.9 L RDW Std Deviation 20.5 H Plt Count 236 MPV 12.3 H Immature Gran % (Auto) 0.2 Neut % (Auto) 78.5 H Lymph % (Auto) 11.8 L [place] % (Auto) 8.3 Eos % (Auto) 0.6 Baso % (Auto) 0.6 Immature Gran # (Auto) 0.02 Neut # (Auto) 7.69 H Lymph # (Auto) 1.16 L [place] # (Auto) 0.81 H Eos # (Auto) 0.06 Baso # (Auto) 0.06 PT INR PTT (Actin FS) Specimen Type ARTERIAL Sample Site R RADIAL pH 7.36 pCO2 57 H* pO2 33 L* HCO3 28.3 H Base Excess 5.4 H Oxyhemoglobin 59.3 L* ABG O2 Sat (Calculated) 9.7 L ABG O2 Saturation 61.6 L ABG Carboxyhemoglobin 3.50 H ABG Methemoglobin 0.3 Kirk Test YES Total Hemoglobin 11.6 Lactate 2.30 H Blood Gas Modality BI PAP Vent Mode BIPAP FiO2 % 100.0 Inspiratory BiPAP 22.0 Expiratory BiPAP 6.0 Sodium 149 H Potassium 3.2 L Chloride 103 Carbon Dioxide 30 Anion Gap 16 BUN 13 Creatinine 0.8 Estimated GFR/1.73 m2 > 60 BUN/Creatinine Ratio 16 Glucose 105 H Calculated Osmolality 297 Calcium 7.3 L Magnesium 0.7 L* Total Bilirubin 1.09 H AST 23 ALT 10 Alkaline Phosphatase 100 Creatine Kinase 97 Troponin T Total Protein 6.7 Albumin 3.3 L Globulin 3.4 Albumin/Globulin Ratio 1.0 Plasma Lactate Urine Source Urine Color Urine Turbidity Urine pH Ur Specific [place] Urine Protein Ur Glucose (Stick) Ur Ketones (Stick) Urine Blood Urine Nitrite Urine Bilirubin Urobilinogen Dipstick Urine Leukocytes Urine WBC (Auto) Urine RBC (Auto) U Epithel Cells (Auto) Urine Bacteria (Auto) 06/15/19 06/15/19 06/15/19 05:56 05:56 05:56 WBC RBC Hgb Hct MCV MCH MCHC RDW Std Deviation Plt Count MPV Immature Gran % (Auto) Neut % (Auto) Lymph % (Auto) [place] % (Auto) Eos % (Auto) Baso % (Auto) Immature Gran # (Auto) Neut # (Auto) Lymph # (Auto) [place] # (Auto) Eos # (Auto) Baso # (Auto) PT 23.1 H INR 1.99 PTT (Actin FS) 36.0 Specimen Type Sample Site pH pCO2 pO2 HCO3 Base Excess Oxyhemoglobin ABG O2 Sat (Calculated) ABG O2 Saturation ABG Carboxyhemoglobin ABG Methemoglobin Kirk Test Total Hemoglobin Lactate Blood Gas Modality Vent Mode FiO2 % Inspiratory BiPAP Expiratory BiPAP Sodium Potassium Chloride Carbon Dioxide Anion Gap BUN Creatinine Estimated GFR/1.73 m2 BUN/Creatinine Ratio Glucose Calculated Osmolality Calcium Magnesium Total Bilirubin AST ALT Alkaline Phosphatase Creatine Kinase Troponin T 0.164 H Total Protein Albumin Globulin Albumin/Globulin Ratio Plasma Lactate 2.1 Urine Source Urine Color Urine Turbidity Urine pH Ur Specific [place] Urine Protein Ur Glucose (Stick) Ur Ketones (Stick) Urine Blood Urine Nitrite Urine Bilirubin Urobilinogen Dipstick Urine Leukocytes Urine WBC (Auto) Urine RBC (Auto) U Epithel Cells (Auto) Urine Bacteria (Auto) 06/15/19 07:01 WBC RBC Hgb Hct MCV MCH MCHC RDW Std Deviation Plt Count MPV Immature Gran % (Auto) Neut % (Auto) Lymph % (Auto) [place] % (Auto) Eos % (Auto) Baso % (Auto) Immature Gran # (Auto) Neut # (Auto) Lymph # (Auto) [place] # (Auto) Eos # (Auto) Baso # (Auto) PT INR PTT (Actin FS) Specimen Type Sample Site pH pCO2 pO2 HCO3 Base Excess Oxyhemoglobin ABG O2 Sat (Calculated) ABG O2 Saturation ABG Carboxyhemoglobin ABG Methemoglobin Kirk Test Total Hemoglobin Lactate Blood Gas Modality Vent Mode FiO2 % Inspiratory BiPAP Expiratory BiPAP Sodium Potassium Chloride Carbon Dioxide Anion Gap BUN Creatinine Estimated GFR/1.73 m2 BUN/Creatinine Ratio Glucose Calculated Osmolality Calcium Magnesium Total Bilirubin AST ALT Alkaline Phosphatase Creatine Kinase Troponin T Total Protein Albumin Globulin Albumin/Globulin Ratio Plasma Lactate Urine Source CATH Urine Color YELLOW Urine Turbidity CLEAR Urine pH 6.0 Ur Specific [place] 1.028 Urine Protein 200 A Ur Glucose (Stick) NEGATIVE Ur Ketones (Stick) 10 A Urine Blood NEGATIVE Urine Nitrite NEGATIVE Urine Bilirubin SMALL A Urobilinogen Dipstick 6 A Urine Leukocytes NEGATIVE Urine WBC (Auto) <10 Urine RBC (Auto) <10 U Epithel Cells (Auto) <10 Urine Bacteria (Auto) NEGATIVE Orders Category Date Time Status Cardiac Monitoring DIRECTED Care 06/15/19 05:08 Active IV Insertion ORDERED Care 06/15/19 05:08 Completed IV Insertion ORDERED Care 06/15/19 05:08 Completed Intake and Output-Strict ORDERED Care 06/15/19 05:08 Active Notify MD/PA/RALPH for exam NOW Care 06/15/19 05:08 Active Notify Physician As Ordered Care 06/15/19 05:08 Active Repeat Vital Signs .Blood Pressure Care 06/15/19 05:08 Active Repeat Vital Signs .Heart Rate Care 06/15/19 05:08 Active Repeat Vital Signs .Oxygen Saturation Care 06/15/19 05:08 Active Repeat Vital Signs .Respiratory Rate Care 06/15/19 05:08 Active Repeat Vital Signs .Temp Care 06/15/19 05:08 Active CHEST-1 VIEW [RAD] Stat Exams 06/15/19 05:08 Completed ABG [RESP] Routine Lab 06/15/19 05:47 Completed ALCOHOL BLOOD Stat Lab 06/15/19 07:55 Ordered BLOOD CULTURE [BLDCUL] Stat Lab 06/15/19 05:56 Results CBC WITH DIFF [HEME] Stat Lab 06/15/19 05:56 Results CK PROFILE [SP CHEM] Stat Lab 06/15/19 05:56 Completed COMPREHENSIVE METABOLIC PANEL [CHEM] Stat Lab 06/15/19 05:56 Completed INFLUENZA SCREEN A/B Stat Lab 06/15/19 07:54 Uncollected LACTATE, PLASMA [CHEM] Lab 06/15/19 05:56 Completed LACTATE, PLASMA [CHEM] Lab 06/15/19 08:15 Uncollected LACTATE, PLASMA [CHEM] Lab 06/15/19 11:15 Uncollected MAGNESIUM [CHEM] Stat Lab 06/15/19 05:56 Completed PRO B-NATRIURETIC PEPTIDE Stat Lab 06/15/19 07:53 Uncollected PROTIME WITH INR [COAG] Stat Lab 06/15/19 05:56 Completed PTT [COAG] Stat Lab 06/15/19 05:56 Completed ROUTINE CULTURE [RM] Stat Lab 06/15/19 05:08 Uncollected TROPONIN T Stat Lab 06/15/19 05:56 Completed URINALYSIS W/POSS RFLX CULT [URINALYSIS] Stat Lab 06/15/19 07:01 Completed URINE DRUG SCREEN Stat Lab 06/15/19 07:55 Uncollected 0.9% Sodium Chloride Inj [Ns] 1,000 ml Med 06/15/19 05:07 Discontinued IV As Directed mls/hr 0.9% Sodium Chloride Inj [Ns] 500 ml Med 06/15/19 05:07 Discontinued IV 999 mls/hr CefEPIME [Maxipime] 2 gm Med 06/15/19 05:07 Discontinued 0.9% Sodium Chloride Inj [Ns] 100 ml IV NOW Magnesium Sulfate 2 gm/S.w.i. Med 06/15/19 07:02 Active 2 gm in 50 ml IV NOW Vancomycin 1 gm/Ns Med 06/15/19 05:07 Discontinued 1 gm in 250 ml IV NOW Oxygen Device Stat Oth 06/15/19 05:08 Active EKG [EKG] Stat Ther 06/15/19 06:25 Draft Result Diagrams: 06/15/19 05:56 06/15/19 05:56 - REASSESSMENT Reassessment #1 Time Reassessed: 07:58 Status: improving (Seen and examined by me. Case discussed with Dr. Kwan at shift change. Patient is no longer hypotensive with IVF bolus and placement on bipap. Patient has acute on chronic respiratory failure with COPD exacerbation and sepsis. Given Vanco/Maxipime by Dr. Kwan.) - EKG 1 Time of EKG reading by physician:: 06:55 EKG Read and Signed by:: Jose Kwan EKG Interpretation (*Must complete 3 of following elements*): Abnormal Rate: 120 Rhythm: sinus tach QRS: other (antlat and infer infarct) - XRAY 1 XRAY Study: Chest Impression: Abnormal, See EMR Report ( EXAM: CHEST-1 VIEW HISTORY: SOB TECHNIQUE: Single view COMPARISON: 06/10/2019 FINDINGS: The lungs are well expanded. The heart is not enlarged. The vessels are mildly distended. There are no infiltrates. No effusion identified. IMPRESSION: Mild pulmonary edema Electronically signed by Armaan Baldwin 06/15/2019 6:45 AM 06/15/19 0645 Interpreting Physician: Armaan Baldwin MD Dictated Date/Time: 06/15/19 0644 cc: Jose Kwan MD; RICARDO TORRES MD) - CONSULTS/PCP/HOSPITALIST Notification #1 *Consult/PCP/Hospitalist*: RALPH Lee Time Discussed: 08:00 Consult Disposition: Will see in ED, Admit - CHANGE OF SHIFT REPORT (ED Provider) 1 Report Given and Care Transferred to:: Lori Time of Transfer: 07:00 Items Pending: Labs, XRAY Results Departure - Departure Date of Disposition Decision: 06/15/19 Time of Disposition Decision: 08:00 DIAGNOSIS: Acute respiratory failure with hypoxia and hypercarbia, COPD with acute exacerbation Sepsis Qualifiers: Sepsis type: sepsis due to unspecified organism Sepsis acute organ dysfunction status: with acute organ dysfunction Severe sepsis acute organ dysfunction type: acute respiratory failure Acute respiratory failure type: with hypoxia Severe sepsis shock status: without septic shock Qualified Code(s): A41.9 - Sepsis, unspecified organism; R65.20 - Severe sepsis without septic shock; J96.01 - Acute respiratory failure with hypoxia Disposition: ADMITTED INPATIENT 09 Certified Medical Emergency: Emergent Condition: Fair Referrals and Follow-Ups: RICARDO TORRES MD [Primary Care Provider] - - Critical Care Note This patient required my direct & personal management of CC.: Yes Total Time (mins): 40 Critical Care Statement: This patient required my direct personal management to treat or rule out processes, the absence of which, could potentiallly result in sudden, clinically significant life or limb threatening deterioration. Attestation - Physician/ MANDO Attestation Patient care was provided by Advanced Practice Provider:: No The physician spent face to face time with patient:: Yes Advanced Practice Provider documentation review:: Supervising physician onsite and consulted in the evaluation and care of this patient. The physician did have a face to face encounter with the patient.
[2019-06-15 06:34] LABS: ESTIMATED GFR > 60
[2019-06-15 06:39] LABS: AGAP 16; ALBUMIN 3.3 g/dL (3.5-5.0); ALKALINE PHOSPHATASE 100 U/L (32-104); BUN 13 mg/dL (8-22); CALCIUM 7.3 mg/dL (8.8-10.2); CHLORIDE 103 mmol/L (98-107); CK PROFILE 97 U/L (24-173); COSMO 297; CREATININE 0.8 mg/dL (0.5-0.9); GLUCOSE 105 mg/dL (70-104); GOT 23 U/L (10-30); GPT 10 U/L (10-36); POTASSIUM 3.2 mmol/L (3.5-5.1); SODIUM 149 mmol/L (136-145); TCO2 30 mmol/L (25-35); TOTAL BILIRUBIN 1.09 mg/dL (0.20-1.00); TOTAL PROTEIN 6.7 g/dL (6.3-8.3)
[2019-06-15 06:45] LABS: INR 1.99; PROTIME 23.1 Seconds (11.0-16.0)
--- NOTE | 2019-06-15 06:47 | Diag Imaging Result Doc PS360 ---
EXAM: CHEST-1 VIEW HISTORY: SOB TECHNIQUE: Single view COMPARISON: 06/10/2019 FINDINGS: The lungs are well expanded. The heart is not enlarged. The vessels are mildly distended. There are no infiltrates. No effusion identified. IMPRESSION: Mild pulmonary edema Electronically signed by Armaan Baldwin 06/15/2019 6:45 AM
[2019-06-15 06:52] LABS: MAGNESIUM 0.7 mg/dL (1.5-2.7)
[2019-06-15] MEDS ORDERED: MAGNESIUM SULFATE 2 GM/S.W.I. 2 GM/50 ML IVPB IV ONE (07:02)
[2019-06-15 07:08] LABS: URINE SOURCE CATH
--- NOTE | 2019-06-15 07:11 | EKG Report ---
Test Performed on : 06/15/2019 06:47:54 AM Test Reason : CP Blood Pressure : / mmHG Vent. Rate : 120 BPM Atrial Rate : 120 BPM P-R Int : 134 ms QRS Dur : 096 ms QT Int : 284 ms P-R-T Axes : 017 078 -36 degrees QTc Int : 401 ms Sinus tachycardia. Cannot rule out Inferior infarct (cited on or before 12-AUG-2018) Anterolateral infarct (cited on or before 13-AUG-2018) Abnormal ECG When compared with ECG of 10-JUN-2019 00:20, (Unconfirmed) Questionable change in initial forces of Anterior leads Inverted T waves have replaced nonspecific T wave abnormality in Lateral leads Unconfirmed Result
[2019-06-15 07:14] LABS: BILIRUBIN URINE SMALL (NEGATIVE); BLOOD URINE NEGATIVE (NEGATIVE); COLOR YELLOW; GLUCOSE URINE NEGATIVE (NEGATIVE); KETONE URINE 10 mg/dL (NEGATIVE); LEUKOCYTES URINE NEGATIVE (NEGATIVE); NITRITE URINE NEGATIVE (NEGATIVE); PROTEIN URINE 200 mg/dL (NEGATIVE); SP GRAVITY URINE 1.028; TURBIDITY URINE CLEAR (CLEAR); UROBILINOGEN URINE 6 mg/dL (NORMAL)
[2019-06-15 07:15] LABS: UR EPITHELIAL CELLS <10 /HPF (<10); URINE BACTERIA NEGATIVE /HPF; URINE RBC <10 /HPF (<10); URINE WBC <10 /HPF (<10)
[2019-06-15] MEDS ORDERED: POTASSIUM CHLORIDE 20 MEQ/SWI 20 MEQ/100 ML IVPB IV ONE (08:00)
[2019-06-15] MEDS ORDERED: LASIX IV ONE (08:58)
[2019-06-15 09:13] LABS: UR AMPHETAMINES QUAL NONE DETECTED (NONE DETECT); UR BARBITUATES QUAL NONE DETECTED (NONE DETECT); UR BENZODIAZEPIN QUAL PRESUMPTIVE POSITIVE (NONE DETECT); UR CANNABINOIDS QUAL NONE DETECTED (NONE DETECT); UR COCAINE QUAL NONE DETECTED (NONE DETECT); UR METHADONE QUAL NONE DETECTED (NONE DETECT); UR OPIATES QUAL NONE DETECTED (NONE DETECT); UR OXYCODONE QUAL NONE DETECTED (NONE DETECT); UR PCP QUAL NONE DETECTED (NONE DETECT)
[2019-06-15] MEDS ORDERED: NORCO-7.5 PO ONE (09:22)
[2019-06-15 09:39] LABS: BANDS 2 % (0-1); LYMPHS 18 % (21-51); MONO 6 % (1-9); SEGS 74 % (42-75)
[2019-06-15 09:40] LABS: ANISOCYTOSIS 2+; HYPOCHROM 2+
[2019-06-15] MEDS ORDERED: TYLENOL PO PRN (10:48)
[2019-06-15] MEDS ORDERED: DUONEB (A & A) INH PRN (10:48)
[2019-06-15] MEDS ORDERED: CALCIUM GLUCONATE 1 GM in NS 50 ML IV ONE (10:50)
[2019-06-15 11:27] LABS: BASO# 0.04 X1000 (0.0-0.2); BASO% 0.4 % (0.0-0.8); EOS# 0.09 X1000 (0.0-0.7); EOS% 0.8 % (0.0-10.0); HEMOGLOBIN 10.6 g/dL (12.0-16.0); IMM GRAN# 0.02 X1000 (0.0-0.04); IMM GRAN% 0.2 % (0.0-0.5); LYMPH# 1.17 X1000 (1.2-3.4); LYMPH% 10.8 % (20.5-51.1); MCH 23.5 PG (27-31); MCHC 28.6 g/dL (33-37); MONO# 1.16 X1000 (0.11-0.59); MONO% 10.7 % (1.7-9.3); MPV 11.9 FL (7.4-10.4); NEUT% 77.1 % (42.2-75.2); PLT 233 X1000 (130-400); RBC 4.51 XMIL (4.2-5.4); RDW 20.5 % (11.5-14.5); WBC 10.88 X1000 (4.8-10.8)
[2019-06-15] MEDS: DUONEB (A & A) INH SCH ×4 (11:30→23:25)
[2019-06-15 11:37] LABS: ALLEN TEST YES; BE 3.2 mmoll (-3.0-3.0); BLOOD TYPE ARTERIAL; HCO3-(ACT) 27.4 mmoll (20.0-26.0); METHB 0.7 % (0.0-1.5); O2(CT) 14.6 mL/dL (15.0-23.0); O2HB 94.8 % (95.0-99.0); PCO2(98.6) 49 mmHg (35-45); PO2(98.6) 84 mmHg (60-100); SAMPLE BLOOD; SAO2 97.9 % (95.0-100.0); SRATE 16 BPM; THB 10.9 g/dL (11.5-17.4); pH(98.6) 7.38 (7.35-7.45)
[2019-06-15 11:40] LABS: MODALITY BI PAP
[2019-06-15 12:12] LABS: AGAP 17; ALBUMIN 2.9 g/dL (3.5-5.0); ALKALINE PHOSPHATASE 91 U/L (32-104); BUN 12 mg/dL (8-22); CHLORIDE 105 mmol/L (98-107); COSMO 292; CREATININE 0.7 mg/dL (0.5-0.9); ESTIMATED GFR > 60; GLUCOSE 103 mg/dL (70-104); GOT 22 U/L (10-30); GPT 9 U/L (10-36); POTASSIUM 3.9 mmol/L (3.5-5.1); SODIUM 147 mmol/L (136-145); TCO2 25 mmol/L (25-35); TOTAL BILIRUBIN 0.86 mg/dL (0.20-1.00); TOTAL PROTEIN 5.7 g/dL (6.3-8.3)
[2019-06-15 12:19] LABS: CALCIUM 6.8 mg/dL (8.8-10.2)
--- NOTE | 2019-06-15 15:59 | HISTORY AND PHYSICAL ---
PRIMARY CARE PROVIDER: Faraz Gordon CHIEF COMPLAINT: Shortness of breath and back pain. HISTORY OF PRESENT ILLNESS: Ms Gregory is a 58-year-old female who is well known to our service for multiple admissions for acute on chronic respiratory failure, COPD exacerbation and heart failure exacerbation who comes to the ED complaining of shortness of breath for several days, as well as back pain. She does report a nonproductive cough. No fevers, no chills. However, she reports she is cold in the ED. She reports she has been taking her Lasix at home as prescribed. She has not been wearing her CPAP. She reports she was told to stop wearing her CPAP. She also reports that she has been watching her food as well as liquid intake. She denies any cardiac type chest pain, nausea, vomiting, diarrhea, constipation. Workup in the ED shows a white count of 9. I do not have any recorded temp, however, she was tachycardic and tachypneic. ABG shows lack of baseline CO2 at 57. She is saturating 100% on BiPAP, potassium of 3.2, magnesium of 0.7, elevated troponin at 0.164 and a proBNP greater than 19,000, positive for benzodiazepines. She was initially treated for sepsis and given IV fluids. However, she seems more volume overloaded with a mild COPD exacerbation. We will give her [address] her on IV Lasix b.i.d., continue on BiPAP and bronchodilators and replenish her electrolytes. Chest x- ray shows pulmonary edema, but no infiltrates. PAST MEDICAL HISTORY: 1. COPD. 2. Hypertension. 3. Congestive heart failure. 4. Atrial fibrillation. 5. Chronic opiate dependence. PAST SURGICAL HISTORY: Cholecystectomy, carotid endarterectomy, renal stent. ALLERGIES: Levofloxacin and NSAIDs. SOCIAL HISTORY: Former smoker. No alcohol or illicit drug use. She is , at bedside, has home health. FAMILY HISTORY: Positive for coronary artery disease. REVIEW OF SYSTEMS: Completely negative except for those mentioned in HPI. HOME MEDICATIONS: Are being compiled. PHYSICAL EXAMINATION: VITAL SIGNS: Temperature unknown, heart rate 120, respirations 20, blood pressure 119/88, O2 is 100%. GENERAL: Ms. Gregory is a 58-year-old female who is lying on her right side on BiPAP on the stretcher who is crying out with back pain, requesting more warm blankets, but in no acute distress. HEENT: Atraumatic, normocephalic. PERRL. NECK: Supple. Trachea midline. CARDIOVASCULAR: S1, S2 appreciated. No murmurs, gallops, rubs noted. RESPIRATORY: Lung sounds some expiratory wheezes in the upper lobes with some diffuse rales in the bilateral bases. GASTROINTESTINAL: Soft, nontender, nondistended. Positive bowel sounds 4 quads. EXTREMITIES: Lower extremities trace edema. Bilateral pedal pulses are palpable. No signs of clubbing or cyanosis.Neurologic: The patient is awake, alert, oriented, in no focal deficits noted. DIAGNOSTIC DATA: Chest x-ray: Mild pulmonary edema. EKG sinus tachycardia, cannot rule out inferior infarct, anterior lateral infarct, abnormal ECG. LABORATORY DATA: White count 9, hemoglobin and hematocrit 11 and 39, platelet count is 236,000. PT 231. INR 1.99. Blood gas pH 7.36, pCO2 57, PO2 33, bicarb 28, base excess 5.4, oxyhemoglobin 59, O2 saturation was 61.6, lactate was 2.3. Sodium 149, potassium 3.2, BUN 13, creatinine 0.6, blood glucose is 105, calcium 7.3, magnesium 0.7, total bilirubin 1.09. Troponin 0.164. ProBNP 19,524. Albumin 3.3. The initial plasma lactate 2.1 and repeat 1.0. Toxicology screen positive for benzodiazepines. Serum alcohol level was 0. ASSESSMENT AND PLAN: 1. Congestive heart failure exacerbation. Last echocardiogram back in January 2019 showed an EF of 35 to 40 percent. We will give her 80 mg of IV Lasix and continue with 40 IV b.i.d. 2. Known pulmonary hypertension. We will continue with IV Lasix. 3. Mild chronic obstructive pulmonary disease exacerbation. We will continue with bronchodilators, BiPAP, and aggressive pulmonary toilet. 4. Paroxysmal atrial fibrillation. The patient is on chronic Coumadin therapy. However, she does not appear to be therapeutic. We will check daily PT and INRs. 5. Sepsis rule out. Patient was given IV fluid boluses and treated with cefepime and vancomycin. We will discuss this with Dr. North to see if he wants to continue treatment. I do believe that it is just heart failure and chronic obstructive pulmonary disease exacerbation. 6. Chronic pain syndrome, aware. The patient currently complaining of back pain and crying out. 7. Hypomagnesium, hypocalcemia. 8. Hypokalemia. We will continue to replenish and recheck electrolytes. 9. Acute on chronic hypoxemic hypercapnic respiratory failure, stable on BiPAP. 10. Elevated troponin. The patient is not complaining of any cardiac type chest pain. She does have an abnormal EKG. However, she has had several admissions with elevated troponin. Could be secondary to her other issues with her heart failure and chronic obstructive pulmonary disease. We will continue to trend and follow her EKGs. We will get Cardiology involved as necessary. 11. Further recommendation to follow physician evaluation, laboratory and diagnostic data. Dictated by RALPH Meza for Nadeem Stanton MD cc: Nadeem Stanton MD
[2019-06-15] MEDS ORDERED: NORCO-5 PO PRN (17:33)
[2019-06-15] MEDS: KLONOPIN PO PRN (20:50)
[2019-06-15] MEDS: LIPITOR PO SCH (20:50)
[2019-06-15] MEDS: LASIX IV SCH (20:50)
[2019-06-15] MEDS ORDERED: COREG PO SCH (21:00)
[2019-06-15] MEDS ORDERED: COUMADIN PO SCH (21:00)
[2019-06-16] MEDS: ZOFRAN IV PRN (01:47)
[2019-06-16] MEDS: ZANAFLEX PO PRN (03:17)
[2019-06-16] MEDS: DUONEB (A & A) INH SCH ×6 (03:32→23:45)
--- NOTE | 2019-06-16 04:06 | HISTORY AND PHYSICAL ---
ADDENDUM: The patient seen and examined by me [id number]. All the laboratory, vital signs and images were reviewed. Chest x-ray showed pulmonary edema and this patient has a history of congestive heart failure with an ejection fraction of 35 to 40 percent, and also COPD. On my physical exam, this patient is wheezing and also has crackles bilaterally, so I do believe it is a combined problem, I have placed this patient back on her home medications and I will continue with Lasix IV. She is feeling better compared with a few hours ago, I will restart this patient's warfarin. Apparently, as per the patient, her INR level was really high, more than 9 a few days ago, but now it is 1.9, so I will put her back on this. On the other hand, I have restarted most of her medications and we have replaced her electrolytes. We will monitor this patient closely. I agree with the rest of the nurse practitioner's assessment and plan. cc: Nadeem Stanton MD
[2019-06-16 07:05] LABS: INR 2.04; PROTIME 23.5 Seconds (11.0-16.0)
[2019-06-16 07:23] LABS: AGAP 14; ALB/GLOB RATIO 1.2; ALBUMIN 2.8 g/dL (3.5-5.0); ALKALINE PHOSPHATASE 78 U/L (32-104); BUN 14 mg/dL (8-22); CHLORIDE 99 mmol/L (98-107); COSMO 282; CREATININE 0.9 mg/dL (0.5-0.9); ESTIMATED GFR > 60; GLUCOSE 112 mg/dL (70-104); GOT 17 U/L (10-30); GPT 7 U/L (10-36); POTASSIUM 3.4 mmol/L (3.5-5.1); SODIUM 141 mmol/L (136-145); TCO2 28 mmol/L (25-35); TOTAL PROTEIN 5.2 g/dL (6.3-8.3)
[2019-06-16] MEDS: NEO-SYNEPHRINE 50 MG in NS 250 ML IV SCH ×2 (07:31→11:34)
--- NOTE | 2019-06-16 07:44 | Diag Imaging Result Doc PS360 ---
EXAM: CHEST-PORTABLE INDICATION: short of breath TECHNIQUE: One view COMPARISON: 06/15/2019 FINDINGS: There has been interval development of a small right pleural effusion with adjacent atelectasis. No other new consolidation is identified. Cardiac silhouette is stable. IMPRESSION: Interval development of small right pleural effusion. Electronically signed by Jose Escoto 06/16/2019 7:42 AM
[2019-06-16 07:57] LABS: CALCIUM 6.6 mg/dL (8.8-10.2)
[2019-06-16] MEDS: MAXIPIME 1 GM in NS 50 ML IV SCH ×2 (08:01→19:51)
[2019-06-16] MEDS ORDERED: MAGNESIUM SULFATE 2 GM/S.W.I. 2 GM/50 ML IVPB IV ONE ×2 (08:03→16:10)
[2019-06-16] MEDS ORDERED: KLOR-CON PO ONE (08:04)
[2019-06-16] MEDS ORDERED: CALCIUM GLUCONATE 4.65 MEQ in NS 50 ML IV ONE (08:04)
[2019-06-16] MEDS: LASIX IV SCH ×2 (08:17→20:05)
[2019-06-16 08:26] LABS: BASO# 0.05 X1000 (0.0-0.2); BASO% 0.6 % (0.0-0.8); EOS# 0.13 X1000 (0.0-0.7); EOS% 1.5 % (0.0-10.0); HEMATOCRIT 30.1 % (37.0-47.0); HEMOGLOBIN 8.6 g/dL (12.0-16.0); LYMPH# 1.43 X1000 (1.2-3.4); LYMPH% 16.7 % (20.5-51.1); MCH 23.3 PG (27-31); MCHC 28.6 g/dL (33-37); MCV 81.6 FL (81-99); MONO# 0.71 X1000 (0.11-0.59); MONO% 8.3 % (1.7-9.3); MPV 12.7 FL (7.4-10.4); NEUT# 6.24 X1000 (1.4-6.5); NEUT% 72.9 % (42.2-75.2); PLT 201 X1000 (130-400); RBC 3.69 XMIL (4.2-5.4); RDW 19.9 % (11.5-14.5); WBC 8.56 X1000 (4.8-10.8)
[2019-06-16 08:46] LABS: ALLEN TEST YES; BE 3.8 mmoll (-3.0-3.0); BLOOD TYPE ARTERIAL; HCO3-(ACT) 27.9 mmoll (20.0-26.0); O2(CT) 14.3 mL/dL (15.0-23.0); O2HB 96.8 % (95.0-99.0); PO2(98.6) 151 mmHg (60-100); SAMPLE BLOOD; SAO2 99.5 % (95.0-100.0); THB 10.3 g/dL (11.5-17.4); pH(98.6) 7.35 (7.35-7.45)
[2019-06-16 08:49] LABS: MODALITY BI PAP; SRATE 16 BPM
[2019-06-16 08:51] LABS: PCO2(98.6) 55 mmHg (35-45)
[2019-06-16] MEDS ORDERED: COREG PO SCH (09:00)
--- NOTE | 2019-06-16 09:13 | EKG Report ---
Test Performed on : 06/16/2019 09:04:20 AM Test Reason : Elebated troponin Blood Pressure : / mmHG Vent. Rate : 071 BPM Atrial Rate : 071 BPM P-R Int : 134 ms QRS Dur : 094 ms QT Int : 452 ms P-R-T Axes : 019 069 025 degrees QTc Int : 491 ms Normal sinus rhythm. Possible Inferior infarct (cited on or before 12-AUG-2018) Anterolateral infarct (cited on or before 13-AUG-2018) Abnormal ECG When compared with ECG of 15-JUN-2019 06:47, (Unconfirmed) Vent. rate has decreased BY 49 BPM Nonspecific T wave abnormality, improved in Inferior leads Confirmed by Jim HERRERA, Marco ([id number]) on 06/16/2019 5:38:29 PM
[2019-06-16] MEDS: PLAVIX PO SCH ×2 (09:53→10:16)
[2019-06-16] MEDS: MORPHINE IV PRN ×4 (10:23→22:42)
--- NOTE | 2019-06-16 11:28 | PROGRESS NOTE ---
DATE: 06/16/2019 SUBJECTIVE: This patient's blood pressure was doing good until around 5 a.m. today where it started dropping. I do not have any specific reason at this moment. She has been placed on vasopressors, and she will be transferred to the intensive care unit. Her oxygenation also dropped, so we have placed this patient on the BiPAP machine, and the oxygen saturation has been in the 100%. I have requested an evaluation by Pulmonary Department and Cardiology Department. Even though we have a negative balance of 630, she has a worsening right pleural effusion compared with yesterday for me. This patient has been completely awake, alert, and oriented x3 during the whole process. I will place this patient on cefepime, but to cover any underlying infection, and also, we have requested a blood culture negative. I will get today a urine culture and sputum culture. Yesterday she received also vancomycin and cefepime in the emergency department. I thought about the possibility of having a blood clot in her lungs, but this patient has been on warfarin, and as per the patient, she was supratherapeutic a few days ago, INR more than 9. Yesterday, when I checked it, it was 1.99 and today is 2.04, which is therapeutic, so I will wait for Pulmonary and Cardiology Department to evaluate this patient to see what are their thoughts. PHYSICAL EXAMINATION: Vital Signs: Temperature 97.8 degrees, pulse 70, respiratory rate 18, blood pressure 77/55, and oxygen saturation 100% on the BiPAP machine. HEENT: Head normocephalic, no trauma. PERRLA. Neck: Supple. Some JVD. Central trachea. Chest: Decreased breath sounds globally with prolonged expiratory phase and bilateral crackles, mostly on the right side. Abdomen: Soft, protuberant, nontender, nondistended. No hepatosplenomegaly. Extremities: No edema, no clubbing, no cyanosis. Neurological: The patient is completely alert, awake, and oriented x3. No focal deficits. LABORATORY DATA: Pending CBC. PT 23.5, INR 2.08. Sodium 141, potassium 3.4, chloride 99, bicarbonate 28, BUN 14, creatinine 0.9, glucose 112. Calcium level is 6.6, magnesium 0.8. AST 17, ALT 7, alkaline phosphatase 78. The proBNP actually is better compared with yesterday at 9565. Albumin 2.8. ASSESSMENT AND PLAN: 1. Shock. I do not really have a source of infection. She has been placed on pressors. I thought about the possibility of having a pulmonary embolism, but this patient has been getting warfarin and actually her INR was supratherapeutic. As per the patient, the INR was more than 9. Yesterday it was 1.99 and today is 2.04. She has been restarted on warfarin yesterday. I will continue with that for now. I will wait for the recommendations of Pulmonary and Cardiology Department. 2. Congestive heart failure exacerbation. She had a negative balance of more than 600 mL. I will stop all the blood pressure medication due to her shock. I will continue with Lasix because of the fluid overload. Her troponins are a little bit elevated, but she is not complaining of chest pain. I will get an EKG right now, and I will continue monitoring her troponins. 3. Acute on chronic respiratory failure, hypoxemic and hypercarbic. I have placed this patient on the BiPAP machine. I will continue with the same management. I have requested an evaluation by Pulmonary Department, and I will ask for a new ABG. Chest x-ray showed an interval development of small right pleural effusion. 4. Paroxysmal atrial fibrillation. Continue with Coumadin. INR is therapeutic. 5. Sepsis. Initially this patient has been treated with antibiotics, and she received some fluids as well, but she was overloaded so I stopped the fluids and started this patient on Lasix, and she was actually feeling better during the night. She is not having s fever, and her white blood cell yesterday was 10.8. She was not complaining of fever or chills, but shortness of breath. I will continue with cefepime just in case she has an underline pulmonary infection, and continue with pressors. 6. Hypomagnesemia. I will replace the magnesium, and I will recheck the magnesium level in the afternoon. 7. Hypocalcemia. The calcium level is around 6.6 and is still low corrected with albumin. I will replace it. 8. Mild hypokalemia. I will give her some potassium by mouth. 9. Mild elevation of the troponins. They have been elevated before multiple times. She is not complaining of chest pain, but now I have requested a new EKG and a new troponin level. Cardiology Department will evaluate this patient as well. She is on anticoagulation already, and the INR is therapeutic. 10. Chronic opiate dependence. Continue with the same management. I have decreased the pain medication from 10 mg of [place] to 5 as needed. As per the patient, she basically takes [place] every single day. CRITICAL CARE TIME: 50 minutes. cc: Nadeem Stanton MD
--- NOTE | 2019-06-16 16:54 | CARDIOLOGY CONSULTATION ---
DATE: 06/16/2019 CHIEF COMPLAINT ON PRESENTATION: Shortness of breath. HISTORY OF PRESENT ILLNESS: Ms. Gregory is a 58-year-old white female with a history of coronary disease, systolic heart failure. For the last 2 days or so, she has reported increasing weight, as well as a sensation of increasing fluid. She reports compliance with her diuretics at home. She seems to not comply with a low-sodium diet. In addition, she is not compliant with her CPAP therapy. She has had no pain complaints. She presented for evaluation and was found to have a markedly elevated proBNP. During the early course of the hospitalization she had some hypotension, was transferred to the ICU and put on low-dose pressors. Presently, she is being weaned down. She is on BiPAP therapy. PAST MEDICAL HISTORY: 1. Significant for coronary disease. Her last cardiac catheterization was in 2015. This demonstrated a short normal left main. The LAD had [id number] calcification of the proximal and mid vessel. Mild diffuse regularities. First diagonal had moderate calcifications, as well as a 60% proximal lesion. Circumflex was calcified in the proximal to mid segment with eccentric 20 to 30 percent proximal disease. A small first obtuse marginal was completely occluded as previously described. Right coronary artery is small and nondominant with a high-grade proximal lesion. Ejection fraction on that study was 40 to 50 percent. This was reported to be stable from previous catheterization in 2012. 2. Systolic heart failure. Most recent echocardiogram was in January of 2019 that demonstrated an EF of 35 to 40 percent. 3. Moderate mitral regurgitation with moderate mitral stenosis based on echocardiogram in January of 2019. Mean gradient of 7 on that study. 4. Paroxysmal atrial fibrillation maintained on warfarin. 5. Hypertension. 6. Peripheral vascular disease with history of carotid endarterectomy, as well as iliac stenting. 7. History of CVA in 2013. SOCIAL HISTORY: Former smoker; not currently. She is . FAMILY HISTORY: Significant for coronary disease. REVIEW OF SYSTEMS: A 10 system review of systems is negative, except for those things mentioned in HPI. PHYSICAL EXAMINATION: Vital Signs: The patient has not been febrile this hospitalization. Her heart rate is currently in the 60s. Most recent blood pressures have had systolics in the 100s. Intake and output are not accurate. Generally: She is in no acute distress. HEENT: Oropharynx is moist. Poor dentition. Eye examination shows pink conjunctivae, white sclerae. Neck: Examination shows no clear evidence of thyromegaly or thyroid tenderness. Cardiovascular: She sounds to be in a regular rate and rhythm. She has no obvious murmurs. She has trace bilateral lower extremity edema, and warm and well perfused distal extremities. Chest: Her chest exam sounds relatively clear. She is currently on BiPAP. She has no increased work of breathing. Abdomen: Soft, nontender. She has no obvious organomegaly. Skin: Exam is warm and dry throughout. Neurological: She is moving all extremities well. She has no lateralizing deficits. PERTINENT DATA: Her electrocardiogram on presentation shows sinus tach 120 beats per minute. No clear evidence of ischemic changes. Subsequent EKG occurring on the at 0904 hours shows sinus rhythm 71 beats per minute. Her most recent chest x-ray on the demonstrates interval development of a small right pleural effusion. Her lab data shows a white count 8.6, hematocrit 30, platelet count of 201. Her sodium is 141, potassium is 3.4. BUN 14, creatinine 0.9. Her Mag level is 0.8. Calcium is 6.6. Initial cardiac enzymes were positive at 0.164 with a trend to 0.410. ProBNP is 9565 which is down from 19,524. Her lactate initially was 2.1. ASSESSMENT: Ms. Gregory is a 58-year-old female, who present with shortness of breath likely suggestive of congestive heart failure exacerbation. This is likely due to a combination of dietary noncompliance, as well as noncompliance with CPAP therapy. PLAN: I am unsure of the etiology of her hypotensive episode. Her chest x-ray findings do not seem to clearly designate why she was hypoxic. She seems to be doing better now and is being weaned off pressors. We will discontinue the beta blockers; she is not currently receiving them. Likely we will reinitiate at a lower dose and try to initiate an ARB considering she has had wall motion abnormalities, as well as reduced ejection fractions in the past. We will check a limited echo to re-evaluate her wall motion abnormalities. Considering the frequency of her admissions and the low- grade troponin elevations going on over multiple hospitalizations, we will likely need to do a cardiac catheterization prior to her discharge. She is on high-intensity statin therapy, which I would continue. She continues on Plavix. Magnesium is being repleted. cc: David Hoff MD
[2019-06-16 18:23] LABS: ALB/GLOB RATIO 0.9; CALCIUM 7.3 mg/dL (8.8-10.2); CREATININE 1.1 mg/dL (0.5-0.9); POTASSIUM 3.9 mmol/L (3.5-5.1); TOTAL BILIRUBIN 1.13 mg/dL (0.20-1.00); TOTAL PROTEIN 6.3 g/dL (6.3-8.3)
[2019-06-16] MEDS: NORCO-5 PO PRN (18:33)
[2019-06-16] MEDS: LIPITOR PO SCH (20:05)
[2019-06-16] MEDS: KLONOPIN PO PRN (20:24)
[2019-06-16] MEDS ORDERED: IMDUR PO SCH (21:00)
--- NOTE | 2019-06-17 01:04 | PULMONOLOGY CONSULTATION ---
DATE: 06/16/2019 REQUESTING PHYSICIAN: Dr. North. REASON FOR CONSULTATION: Respiratory failure and shock. HISTORY OF PRESENT ILLNESS: Ms. Gregory is a 58-year-old white female with combined heart and lung disease, tobacco use, with recurrent admissions to the hospital. The patient continues to smoke and have elevated carboxyhemoglobin level. She has been noncompliant with her CPAP device. She has a component of reflux, but does not follow reflux precautions. Initial chest x-ray in the emergency room revealed mild vascular distention. Followup chest x-ray today revealed new right lower lobe infiltrate/pneumonia. PAST MEDICAL HISTORY: 1. Chronic obstructive pulmonary disease. The patient denies tobacco use, but each admission to the hospital has elevated carboxyhemoglobin level suggesting ongoing tobacco use. 2. History of recurrent pneumonia. 3. History of recurrent intubation. 4. Moderate mitral stenosis with mitral regurgitation. 5. Pulmonary hypertension. 6. Moderate LV dysfunction. 7. Chronic pain syndrome. 8. Paroxysmal atrial fibrillation. 9. Hypertension. 10. History of stroke. 11. Status post cholecystectomy. 12. Status post appendectomy. 13. Status post right carotid endarterectomy. 14. Gastroesophageal reflux disease with noncompliance to reflux precautions. 15. Diabetes mellitus. 16. Obesity. SOCIAL HISTORY: 1. The patient denies tobacco use as per above. 2. No alcohol use. 3. Chronic pain syndrome. The patient frequently demonstrates pain seeking behavior with prior admissions. FAMILY HISTORY: Noncontributory. REVIEW OF SYSTEMS: Positive for cough, shortness of breath. PHYSICAL EXAMINATION: General: Reveals a chronically ill-appearing white female on BiPAP device. Vital signs: The patient has been afebrile since admission. Blood pressure 106/55, heart rate 75, respiratory rate 15, oxygen saturation 93% on BiPAP. HEENT: Pupils are equal and reactive. Oropharynx is clear. Neck: Supple. Chest: Reveals coarse rhonchi bilaterally. Cardiac: S1, S2. Abdomen: Obese and soft. Extremities: Without edema. LABORATORIES: Chest x-ray as per HPI. White blood count 8.56, hemoglobin 8.6 platelet count 201,000. Arterial blood gas reveals on admission revealed a pH of 7.36, pCO2 of 57, pO2 of 33, with carboxyhemoglobin of 3.5. Arterial blood gas today on BiPAP reveals a pH 7.35, pCO2 of 55, pO2 of 151, with a normal carboxyhemoglobin level. IMPRESSION: A 58-year-old with 1. Acute hypoxemic respiratory failure. 2. Chronic hypercapnic respiratory failure. 3. Suspected ongoing tobacco use/nicotine addiction. 4. Hypotension. 5. Noncompliance. RECOMMENDATION: 1. Continue BiPAP through the evening. 2. Continue current antibiotic regimen pending culture results. 3. Continue ICU monitoring. 4. Encourage compliance with smoking cessation and BiPAP device. cc: Indra Bowens MD MTDMinh
[2019-06-17] MEDS: MORPHINE IV PRN ×5 (02:49→20:44)
[2019-06-17] MEDS: DUONEB (A & A) INH SCH ×6 (03:25→22:57)
[2019-06-17] MEDS: LASIX IV SCH ×2 (08:41→20:28)
[2019-06-17] MEDS: MAXIPIME 1 GM in NS 50 ML IV SCH ×2 (08:41→20:27)
[2019-06-17] MEDS: PLAVIX PO SCH (08:41)
[2019-06-17] MEDS: SOLU-MEDROL IV SCH ×4 (08:42→23:57)
[2019-06-17] MEDS: KLONOPIN PO PRN ×2 (08:49→20:44)
[2019-06-17 09:28] LABS: BASO# 0.05 X1000 (0.0-0.2); BASO% 0.6 % (0.0-0.8); EOS# 0.11 X1000 (0.0-0.7); EOS% 1.3 % (0.0-10.0); HEMATOCRIT 32.6 % (37.0-47.0); HEMOGLOBIN 9.6 g/dL (12.0-16.0); LYMPH# 1.51 X1000 (1.2-3.4); LYMPH% 17.8 % (20.5-51.1); MCH 24.1 PG (27-31); MCHC 29.4 g/dL (33-37); MCV 81.9 FL (81-99); MONO# 1.04 X1000 (0.11-0.59); MONO% 12.2 % (1.7-9.3); NEUT# 5.79 X1000 (1.4-6.5); NEUT% 68.1 % (42.2-75.2); PLT 177 X1000 (130-400); RBC 3.98 XMIL (4.2-5.4); RDW 20.1 % (11.5-14.5)
[2019-06-17 09:33] LABS: INR 2.26; PROTIME 25.5 Seconds (11.0-16.0)
--- NOTE | 2019-06-17 10:13 | PROGRESS NOTE ---
DATE: 06/17/2019 SUBJECTIVE: The patient is resting comfortably in bed. She is still complaining of shortness of breath. She is still having wheezing bilaterally. She has been placed on breathing treatment and since she has been wheezing, I will add steroids to her medications to see how she does. OBJECTIVE: Vital Signs: Temperature 98.3 degrees, pulse 83, respiratory rate 16, blood pressure 115/88, oxygen saturation 97% on a Venturi mask. HEENT: Head normocephalic, no trauma. PERRLA. Neck: Supple. She does have some JVD. Central trachea. Chest: Decreased breath sounds globally with prolonged expiratory phase and bilateral crackles at the bases, expiratory wheezing. Abdomen: Soft, protuberant, nontender, nondistended. No hepatosplenomegaly. Extremities: No edema, no clubbing, no cyanosis. Neurological: The patient is completely alert, awake and oriented x3. No focal deficits. LABORATORY: Pending lab work today. ASSESSMENT AND PLAN: 1. Shock. I do not really have a source of infection. She was placed on pressors and they have been stopped already. I do not think she had a pulmonary embolism because she has been on warfarin and her INR was therapeutic. I will continue with same management for now. She is off pressors right now. 2. Congestive heart failure exacerbation. We have a negative balance of 144 mL. She has been placed on furosemide twice a day, which I will continue. Cardiology Department following this patient closely. 3. Acute hypoxemic respiratory failure with chronic hypercarbic respiratory failure, aware. Continue with oxygen supplementation and breathing treatment. Pulmonary Department on board. 4. Paroxysmal atrial fibrillation. Continue with Coumadin. INR is therapeutic. Pending lab work today. 5. Sepsis. Initially, this patient has been treated with antibiotics. She received some fluids as well, but she has some fluid overload, so the fluid has been stopped and she has been placed on Lasix due to congestive heart failure exacerbation. She is not having fever and white blood cell count is normal today. Just in case she has an underlying pulmonary infection, I will continue with antibiotics. 6. Hypomagnesemia, is been replaced pending lab work today. 7. Hypocalcemia. It has been replaced already as well pending lab work today. 8. Mild hypokalemia. Pending laboratory, it has been replaced. 9. Elevation of the troponins. Cardiology Department following this patient. I do not see any EKG changes but I will follow recommendations. 10. Chronic opiate dependence. Continue with same management. I have decreased the pain medication from 10 mg of [place] to 5 as needed. As per the patient she basically takes [place] every single day. cc: Nadeem Stanton MD
[2019-06-17 11:10] LABS: ALBUMIN 3.1 g/dL (3.5-5.0); CALCIUM 7.6 mg/dL (8.8-10.2); CREATININE 1.1 mg/dL (0.5-0.9); MAGNESIUM 1.5 mg/dL (1.5-2.7); PHOSPHORUS 2.9 mg/dL (2.7-4.5); POTASSIUM 3.3 mmol/L (3.5-5.1); TOTAL BILIRUBIN 0.8 mg/dL (0.20-1.00); TOTAL PROTEIN 6.2 g/dL (6.3-8.3)
[2019-06-17] MEDS: PROTONIX PO SCH (15:50)
[2019-06-17] MEDS: TUMS PO PRN ×2 (16:53→23:14)
[2019-06-17] MEDS: LIPITOR PO SCH (20:28)
[2019-06-17] MEDS: COREG PO SCH (20:28)
[2019-06-17] MEDS: ZOFRAN IV PRN (22:06)
--- NOTE | 2019-06-17 22:51 | CARDIOLOGY PROGRESS NOTE ---
DATE: 06/17/2019 SUBJECTIVE: Ms. Gregory reports she is doing much better. She is on nasal cannula during my examination. She reports her breathing is much improved. PHYSICAL: Vital signs: She is afebrile. Her heart rate is 94. Blood pressure 144/91. Her blood pressures documented on the have all been 110 are better. Have all been systolics between 115 and 144. Her I's and O's are difficult to track secondary to 2 incontinent voids. General: She is in no acute distress. Cardiovascular: She sounds to be in a regular rate and rhythm. I do not hear any obvious murmurs. She has no S3. She has no lower extremity edema. Chest: Exam sounds clear bilaterally. She has no increased work of breathing. Abdomen: Her abdomen is soft, nontender. PERTINENT DATA: Her sodium is 136, potassium 3.3, BUN 19, creatinine is 1.1. Troponin 0.30 with a proBNP of 3708. Her admission proBNP was 19,524. ASSESSMENT: Ms. Gregory is a 58-year-old female who presented with respiratory failure. PLAN: Patient's proBNP was markedly elevated on presentation; however, chest x-ray on presentation does not seem to be clearly suggestive of the severe symptoms that she had. I am unclear of the etiology of the hypotensive episode she experienced as well. Presently, it does not seem she has significantly diuresed. Her proBNP is markedly better. I will try to add back and a low dose of beta-jaime. Hopefully, we can add back in an EDUARD inhibitor or ARB in near in the near future given her reduced ejection fraction. She has had multiple admissions with respiratory failure and slight troponin elevations. Although these could be secondary to hypoxia and a supply-demand mismatch. I will review her cardiac catheterization films to consider possible catheterization in the near future. cc: David Hoff MD
[2019-06-18] MEDS: MORPHINE IV PRN ×4 (01:34→16:14)
[2019-06-18] MEDS: TUMS PO PRN ×5 (01:35→18:25)
[2019-06-18] MEDS: ZOFRAN IV PRN ×2 (02:27→10:05)
--- NOTE | 2019-06-18 02:29 | PULMONOLOGY PROGRESS NOTE ---
DATE: 06/17/2019 SUBJECTIVE: The patient is awake and alert. She reports she is having some reflux symptoms. She is without other complaints. OBJECTIVE: Vital Signs: The patient has been afebrile for the last 24 hours. Blood pressure 125/75, heart rate 96, respiratory rate 18, oxygen saturation 98% on 5 L per nasal cannula. HEENT: Pupils are equal and reactive. Oropharynx is clear. Neck: Supple. Chest: Reveals crackles in the right mid lung zone. Cardiac: S1-S2. Abdomen: Soft and obese. Extremities: Reveal trace edema. LABORATORIES: Microbiology reveals no new data. White blood count 8.5, hemoglobin 9.6, platelet count 177,000. Sodium 136, potassium 3.3, chloride 95, bicarbonate 24, BUN 19, creatinine 1.1. ProBNP 3708, which has markedly decreased from admission. IMPRESSION: A 58-year-old with: 1. Acute hypoxemic respiratory failure. 2. Chronic hypercapnic respiratory failure. 3. Suspected ongoing tobacco use. 4. Suspected aspiration which led to pneumonia. 5. Noncompliance with previously prescribed medical regimens. PLAN: 1. Wean oxygen as tolerated. 2. Continue antibiotics. 3. Encourage smoking cessation and BiPAP compliance. 4. Followup chest x-ray tomorrow. cc: Indra Bowens MD
[2019-06-18] MEDS: DUONEB (A & A) INH SCH ×6 (03:58→23:00)
[2019-06-18] MEDS: NORCO-5 PO PRN ×2 (03:59→20:02)
--- NOTE | 2019-06-18 05:17 | EKG Report ---
Test Performed on : 06/18/2019 01:48:51 AM Test Reason : new onset chest pain Blood Pressure : / mmHG Vent. Rate : 101 BPM Atrial Rate : 101 BPM P-R Int : 140 ms QRS Dur : 102 ms QT Int : 396 ms P-R-T Axes : 076 081 043 degrees QTc Int : 513 ms Sinus tachycardia. Possible Left atrial enlargement Possible Inferior infarct (cited on or before 12-AUG-2018) Anterolateral infarct (cited on or before 13-AUG-2018) Abnormal ECG When compared with ECG of 17-JUN-2019 17:57, (Unconfirmed) Questionable change in initial forces of Anterior leads Confirmed by Jim HERRERA, Marco ([id number]) on 06/18/2019 10:39:39 AM
[2019-06-18] MEDS: PROTONIX PO SCH (06:19)
[2019-06-18 06:56] LABS: INR 1.74; PROTIME 20.7 Seconds (11.0-16.0)
[2019-06-18 06:57] LABS: HEMOGLOBIN 10.1 g/dL (12.0-16.0); IMM GRAN# 0.02 X1000 (0.0-0.04); IMM GRAN% 0.3 % (0.0-0.5); LYMPH# 0.36 X1000 (1.2-3.4); LYMPH% 4.8 % (20.5-51.1); MCH 23.9 PG (27-31); MCHC 29.7 g/dL (33-37); MCV 80.6 FL (81-99); MONO# 0.21 X1000 (0.11-0.59); MONO% 2.8 % (1.7-9.3); MPV 12.2 FL (7.4-10.4); NEUT# 6.98 X1000 (1.4-6.5); NEUT% 92.1 % (42.2-75.2); PLT 195 X1000 (130-400); RBC 4.22 XMIL (4.2-5.4); RDW 19.8 % (11.5-14.5); WBC 7.57 X1000 (4.8-10.8)
[2019-06-18 07:24] LABS: CALCIUM 8.7 mg/dL (8.8-10.2); CREATININE 1.1 mg/dL (0.5-0.9); MAGNESIUM 1.2 mg/dL (1.5-2.7); PHOSPHORUS 1.8 mg/dL (2.7-4.5); POTASSIUM 3.4 mmol/L (3.5-5.1)
--- NOTE | 2019-06-18 07:35 | Diag Imaging Result Doc PS360 ---
EXAM: CHEST-2 VIEWS INDICATION: abnormal exam TECHNIQUE: 2 views COMPARISON: 06/16/2019 FINDINGS: There has been interval improvement of the small right pleural effusion and the adjacent atelectasis at the right lung base. No new consolidation is identified. Cardiac silhouette is stable. IMPRESSION: Interval improvement on the right as described. Electronically signed by Jose Escoto 06/18/2019 7:33 AM
--- NOTE | 2019-06-18 07:36 | EKG Report ---
Test Performed on : 06/17/2019 5:57:18 PM Test Reason : chest pain Blood Pressure : / mmHG Vent. Rate : 096 BPM Atrial Rate : 096 BPM P-R Int : 144 ms QRS Dur : 104 ms QT Int : 392 ms P-R-T Axes : 079 086 025 degrees QTc Int : 495 ms Normal sinus rhythm. Possible Left atrial enlargement Possible Inferior infarct (cited on or before 12-AUG-2018) Anterolateral infarct (cited on or before 13-AUG-2018) Abnormal ECG When compared with ECG of 16-JUN-2019 09:04, Questionable change in initial forces of Anterior leads Confirmed by Jim HERRERA, Marco ([id number]) on 06/18/2019 10:39:19 AM
[2019-06-18] MEDS ORDERED: MAGNESIUM SULFATE 2 GM/S.W.I. 2 GM/50 ML IVPB IV ONE (07:59)
[2019-06-18] MEDS ORDERED: POTASSIUM PHOSPHATE 30 MMOL in NS 250 ML IV ONE (07:59)
[2019-06-18] MEDS ORDERED: G.I. COCKTAIL PO ONE (08:32)
[2019-06-18] MEDS: KLONOPIN PO PRN ×2 (08:38→20:03)
[2019-06-18] MEDS: LASIX IV SCH (08:38)
[2019-06-18] MEDS: COREG PO SCH ×2 (08:38→20:04)
[2019-06-18] MEDS: PLAVIX PO SCH (08:38)
[2019-06-18] MEDS: MAXIPIME 1 GM in NS 50 ML IV SCH ×2 (08:38→20:04)
[2019-06-18] MEDS: SOLU-MEDROL IV SCH ×2 (08:38→15:37)
[2019-06-18] MEDS: PROTONIX IV SCH ×2 (09:32→20:04)
--- NOTE | 2019-06-18 14:55 | PROGRESS NOTE ---
DATE: 06/18/2019 SUBJECTIVE: This patient is resting in bed but she is complaining of epigastric like pain, burning sensation. She has been taking pantoprazole p.o. and I will switch it to IV. Also, she has been taking some Tums. I will give the give her a GI cocktail. She is using at this moment the BiPAP machine. Cardiology Department and Pulmonary Department are following this patient. As per Cardiology Department she probably will need to get a cardiac cath before discharge. OBJECTIVE: Vital Signs: Temperature 97.3 degrees, pulse 97, respiratory rate 15, blood pressure 171/102, oxygen saturation 100% on the BiPAP machine. HEENT: Head normocephalic, no trauma PERRLA. Neck: Supple. She does have some JVD central trachea. Chest: Decreased breath sounds globally with prolonged expiratory phase and bilateral crackles at the bases. Expiratory wheezing. Abdomen: Soft protuberant, nontender, nondistended, no hepatosplenomegaly. Extremities: No edema, no clubbing, no cyanosis. Neurological: This patient is completely awake, alert and oriented x3. No focal deficits. LABORATORY: WBC 7.5, hemoglobin 10.1, hematocrit 34, platelets 195,000. PT 20.7, INR 1.7. Sodium 142, potassium 3.4, chloride 95, bicarbonate 30, BUN 25, creatinine 1.1, glucose 173, calcium 8.7, phosphorus 1.8, magnesium 1.2. ASSESSMENT AND PLAN: 1. Shock, I do not really have a source of infection. She has been placed on pressors but they have been stopped already. Her blood pressure has been good. I do not think she has a pulmonary embolism 2. Because she has she has been on warfarin and her INR was therapeutic. We will continue with same management for now. 3. Congestive heart failure exacerbation. We have a negative balance of 1.7 L. We will continue with the same management. Cardiology Department following this patient closely. 4. Acute hypoxemic respiratory failure with chronic hypercarbic respiratory failure, aware. She is on the BiPAP machine at this moment. Pulmonary Department following this patient. Continue breathing treatment. 5. Paroxysmal atrial fibrillation. Continue with Coumadin. INR is a little bit lower today. 6. Sepsis. Initially, this patient was treated with antibiotics. She received some fluids as well, but she has some fluid overload, so they were stopped and we put this patient on Lasix due to congestive heart failure. She is not having fever. White blood cell count was normal. Just in case she has an underlying pulmonary infection we are treating her with antibiotics. 7. Hypomagnesemia, I will replace the magnesium today. 8. Hypokalemia with hypophosphatemia, I will replace both. 9. Elevated troponin. Cardiology Department evaluated this patient and likely this patient will need a cardiac cath before discharge. 10. Chronic opiate dependence aware, continue with same management. 11. Gastritis/epigastralgia. Continue with proton pump inhibitors and Tums. cc: Nadeem Stanton MD
[2019-06-18] MEDS: LIPITOR PO SCH (20:03)
[2019-06-18] MEDS: SODIUM CHLORIDE 0.9% INJ SCH (20:04)
[2019-06-19] MEDS: MORPHINE IV PRN ×5 (00:23→22:23)
[2019-06-19] MEDS: SOLU-MEDROL IV SCH (00:23)
--- NOTE | 2019-06-19 01:36 | PULMONOLOGY PROGRESS NOTE ---
DATE: 06/18/2019 SUBJECTIVE: The patient is awake, alert, and sitting on the side of the bed eating. She reports she feels better. OBJECTIVE: Vital Signs: The patient has been afebrile for the last 24 hours. Blood pressure 112/69, heart rate 81, respiratory rate 19, oxygen saturation 94% on 5 L per nasal cannula. HEENT: Pupils are equal and reactive. Oropharynx appears clear. Neck: Supple. Chest: Reveals occasional crackles bilaterally. Cardiac: S1-S2. Abdomen: Soft and obese. Extremities: Reveal trace edema. LABORATORIES: Chest x-ray reveals improvement in the right lung base with near clearing. White blood count 7.57, hemoglobin 10.1, platelet count 195,000. Sodium 142, potassium 3.5, chloride 95, bicarbonate 30, BUN 25, creatinine 1.1. IMPRESSION: A 58-year-old with: 1. Acute hypoxemic respiratory failure. 2. Chronic hypercapnic respiratory failure. 3. Suspected ongoing tobacco use, see consultation. 4. Pneumonia. 5. Noncompliance with previous prescribed medical regimen. PLAN: 1. Continue bronchial hygiene and wean oxygen as tolerated. 2. Begin steroid taper. We are placing patient on 15 to 20 mg of prednisone on Friday and taper over a week to 10 days. 3. Continue antibiotics. cc: Indra Bowens MD
[2019-06-19] MEDS: ZOFRAN IV PRN (01:45)
[2019-06-19] MEDS: DUONEB (A & A) INH SCH ×6 (04:02→23:16)
[2019-06-19] MEDS: TUMS PO PRN ×3 (05:40→20:14)
[2019-06-19 06:54] LABS: INR 1.73; PROTIME 20.7 Seconds (11.0-16.0)
[2019-06-19 07:12] LABS: HEMATOCRIT 35.4 % (37.0-47.0); HEMOGLOBIN 10.2 g/dL (12.0-16.0); MCH 23.9 PG (27-31); MCHC 28.8 g/dL (33-37); MCV 83.1 FL (81-99); MPV 12.5 FL (7.4-10.4); RBC 4.26 XMIL (4.2-5.4); RDW 20.8 % (11.5-14.5); WBC 12.61 X1000 (4.8-10.8)
[2019-06-19 07:21] LABS: CALCIUM 8.8 mg/dL (8.8-10.2); CREATININE 1.2 mg/dL (0.5-0.9); POTASSIUM 4.3 mmol/L (3.5-5.1)
--- NOTE | 2019-06-19 09:05 | CARDIOLOGY PROGRESS NOTE ---
DATE: 06/18/2019 SUBJECTIVE: Ms. Gregory reports she feels much better. She has no pain complaints presently. Her breathing has steadily improved. Physically she is afebrile. OBJECTIVE: Vital Signs: Heart rates have been in the 80s to 90s predominantly. Her blood pressure is 112/69. Generally: She is in no acute distress. Cardiovascular: She sounds to be in a regular rate and rhythm. I do not hear any obvious murmurs. She has no S3. She has no lower extremity edema. Chest: Her chest exam sounds clear. She has no increased work of breathing. Abdomen: Her abdomen is soft, nontender, nondistended. She has no obvious organomegaly. PERTINENT DATA: Her white count is 7.6, hematocrit 34, platelet count 195. INR is 1.7. Sodium 142, potassium 3.4, BUN 25, creatinine is 1.1. Her BUN and creatinine ratio have steadily increased over the last couple of days. Her magnesium level was 1.2. This was already repleted. Chest x-ray continues to show improvement in the right effusion and adjacent atelectasis. ASSESSMENT: Ms. Gregory is a 58-year-old female, who presented with respiratory failure. PLAN: She has had elevations in her troponins during this hospitalization. This could be a supply-demand mismatch secondary to her respiratory issues. She had suggestions of pulmonary edema on earlier chest x-rays. Her proBNP was markedly elevated on presentation at 19,000. Most recent check on the was 3708. Her I's and O's have been negative around 2.5 to 3 L for the hospitalization with some limited data noted. Her last cardiac catheterization was in 2016. I do not see any recent perfusion imaging. She may benefit from an ischemia evaluation prior to discharge. Again, it does not seem like she has had any perfusion imaging done this year. cc: David Hoff MD
[2019-06-19] MEDS: MAXIPIME 1 GM in NS 50 ML IV SCH ×2 (09:22→20:15)
[2019-06-19] MEDS: PROTONIX IV SCH ×2 (09:22→20:14)
[2019-06-19] MEDS: PLAVIX PO SCH (09:22)
[2019-06-19] MEDS: COREG PO SCH ×2 (09:22→20:14)
[2019-06-19] MEDS: LASIX IV SCH (09:23)
[2019-06-19] MEDS: KLONOPIN PO PRN ×2 (09:39→23:29)
[2019-06-19] MEDS: PREDNISONE PO SCH (10:22)
--- NOTE | 2019-06-19 10:38 | PROGRESS NOTE ---
DATE: 06/19/2019 SUBJECTIVE: This patient is resting comfortably in bed. She is still complaining of epigastric pain, burning sensation. I added pantoprazole IV and also she is taking some Tums, I gave her a GI cocktail yesterday. At this moment, she is on the BiPAP machine. She seems to be better. Cardiology Department and Pulmonary Department on board. Cardiology Department will probably need to do a stress test and/or cardiac cath before going home. OBJECTIVE: Vital Signs: Temperature 98.4 degrees, pulse 86, respiratory rate 22, blood pressure 108/66, oxygen saturation 91% on the BiPAP machine. HEENT: Head normocephalic, no trauma. PERRLA. Neck: Supple. She has some JVD central trachea. Chest: Decreased breath sounds globally, prolonged expiratory phase. Some crackles at the bases. No wheezing today. Abdomen: Soft, protuberant, nontender, nondistended. No hepatosplenomegaly. Extremities: No edema. No clubbing. No cyanosis. Neurological: The patient is awake, alert, and oriented x3. No focal deficits. LABORATORY: WBC 12.6, hemoglobin 10.2, hematocrit 35.4, platelets 209,000. INR 1.73. Sodium 138, potassium 4.3, chloride 93, bicarbonate 25, BUN 28, creatinine 1.2, glucose 199, calcium 8.8. ASSESSMENT AND PLAN: 1. Shock, I do not really have a source of infection. She has been placed on pressors for a little bit but they have been stopped already. Her blood pressure has been good. I do not think she has a pulmonary embolism because she has been on warfarin and she was therapeutic. As per the patient, her INR was really elevated before more than 9, but when she came in it was 1.99. She has been placed back on her blood thinners. 2. Congestive heart failure exacerbation, we do have a negative balance of 2.8 L. The frequency of the Lasix has been decreased from twice a day to once a day given her mild increase of BUN and creatinine. Let us see how she does. 3. Acute hypoxemic respiratory failure with chronic hypercarbic respiratory failure. Aware. She is on the BiPAP machine at this moment. Pulmonary Department following this patient. 4. Paroxysmal atrial fibrillation. Continue with Coumadin. INR is a bit low today. 5. Sepsis. Initially, the patient was treated with antibiotics. She received some fluids as well, but they were stopped due to her fluid overload and congestive heart failure. She is not having fever. White blood cell count was normal. We are covering for a possibility of underlying pulmonary infection. 6. Hypomagnesemia, was replaced yesterday. I will recheck the magnesium level today. 7. Hypokalemia with hypophosphatemia. They both have been replaced, yesterday. 8. Elevated troponin. Cardiology Department evaluated this patient and they will need to work this patient up before sending this patient home to rule out coronary artery disease and/or acute coronary syndrome. 9. Chronic opiate dependence. Aware. Continue with same management. 10. Gastritis/epigastralgia. Continue with proton pump inhibitors and Tums. cc: Nadeem Stanton MD
[2019-06-19] MEDS: NORCO-5 PO PRN (11:28)
[2019-06-19] MEDS ORDERED: SODIUM CHLORIDE 0.9% INJ SCH (16:00)
[2019-06-19] MEDS: PEPCID IV SCH (16:06)
[2019-06-19] MEDS: LIPITOR PO SCH (20:14)
[2019-06-19] MEDS: SODIUM CHLORIDE 0.9% INJ SCH (20:15)
--- NOTE | 2019-06-20 00:35 | PULMONOLOGY PROGRESS NOTE ---
DATE: 06/19/2019 SUBJECTIVE: The patient is awake and alert. She reports some epigastric discomfort which has been present for several days. OBJECTIVE: Vital Signs: The patient has been afebrile for the last 24 hours. Blood pressure 147/99, heart rate 107, respiratory rate 17, oxygen saturation 96%. HEENT: Pupils are equal and reactive. Oropharynx appears clear. Neck: Supple. Chest: Reveals prolonged expiratory phase without wheezing or rhonchi. Cardiac: S1-S2. Abdomen: Soft. There is no rebound. Good bowel sounds. Extremities: Reveal 1+ peripheral edema. LABORATORIES: White blood count 12.6, hemoglobin 10.2, platelet count 209,000. Sodium 138, potassium 4.3, chloride 93, BUN 28, creatinine 1.2. IMPRESSION: A 58-year-old with: 1. Acute hypoxemic respiratory failure. 2. Chronic hypercapnic respiratory failure. 3. Ongoing tobacco use suspected (see consultation). 4. Pneumonia. 5. Noncompliance with medical regimen in the past. 6. Epigastric pain. PLAN: 1. Agree with steroid taper. 2. Continue to wean oxygen as tolerated. 3. Continue antibiotics. 4. Consider CT scan of the abdomen and possible GI consultation if her epigastric pain persists. cc: Indra Bowens MD
[2019-06-20] MEDS: PEPCID IV SCH (03:20)
[2019-06-20] MEDS: DUONEB (A & A) INH SCH ×6 (05:14→23:26)
--- NOTE | 2019-06-20 07:27 | Diag Imaging Result Doc PS360 ---
EXAM: CHEST-PORTABLE 06/20/2019 HISTORY: dyspnea TECHNIQUE: AP portable semiupright at 0548 COMMENT: The study is less well exposed than on 06/18/2019. The lungs are also not as well-expanded. There is apparent persistent pulmonary edema particularly in the right base. IMPRESSION: Pulmonary edema. Electronically signed by Rubén Leahy 06/20/2019 7:25 AM
[2019-06-20] MEDS: MORPHINE IV PRN ×3 (07:42→18:25)
[2019-06-20 08:02] LABS: HEMATOCRIT 32.1 % (37.0-47.0); HEMOGLOBIN 9.1 g/dL (12.0-16.0); IMM GRAN# 0.02 X1000 (0.0-0.04); IMM GRAN% 0.2 % (0.0-0.5); LYMPH# 0.46 X1000 (1.2-3.4); LYMPH% 5.5 % (20.5-51.1); MCH 23.4 PG (27-31); MCHC 28.3 g/dL (33-37); MCV 82.5 FL (81-99); MONO# 0.88 X1000 (0.11-0.59); MONO% 10.5 % (1.7-9.3); MPV 12.7 FL (7.4-10.4); NEUT# 7.02 X1000 (1.4-6.5); NEUT% 83.8 % (42.2-75.2); PLT 163 X1000 (130-400); RBC 3.89 XMIL (4.2-5.4); RDW 20.1 % (11.5-14.5); WBC 8.38 X1000 (4.8-10.8)
[2019-06-20 08:04] LABS: INR 2.03; PROTIME 23.4 Seconds (11.0-16.0)
[2019-06-20] MEDS: MAXIPIME 1 GM in NS 50 ML IV SCH ×2 (08:18→20:11)
[2019-06-20] MEDS: LASIX IV SCH (08:19)
[2019-06-20] MEDS: PROTONIX IV SCH ×2 (08:19→20:11)
[2019-06-20] MEDS: PREDNISONE PO SCH (08:19)
[2019-06-20] MEDS: SODIUM CHLORIDE 0.9% INJ SCH ×2 (08:19→20:11)
[2019-06-20] MEDS: COREG PO SCH ×2 (08:19→20:17)
[2019-06-20] MEDS: PLAVIX PO SCH ×2 (08:19→08:40)
[2019-06-20 08:28] LABS: CREATININE 1.3 mg/dL (0.5-0.9); MAGNESIUM 1.7 mg/dL (1.5-2.7); PHOSPHORUS 3.5 mg/dL (2.7-4.5); POTASSIUM 4.2 mmol/L (3.5-5.1)
[2019-06-20 08:45] LABS: ANISOCYTOSIS 1+; BURR CELLS OCCASIONAL; HYPOCHROM 3+; LYMPHS 6 % (21-51); MICROCYTOSIS 1+; MONO 10 % (1-9); SCHISTOCYTES OCCASIONAL; SEGS 84 % (42-75)
[2019-06-20] MEDS: CARAFATE PO SCH ×3 (11:05→20:17)
--- NOTE | 2019-06-20 14:01 | PROGRESS NOTE ---
DATE: 06/20/2019 SUBJECTIVE: This patient is still complaining of epigastric pain, burning sensation. She has been on IV pantoprazole and I will add Carafate. I also will ask gastroenterology department to see this patient. Cardiology department and pulmonary department following this patient. It looks like she has been scheduled for a stress test, possibly for tomorrow. OBJECTIVE: Vital Signs: Temperature 97.6 degrees, pulse 93, respiratory rate 14, blood pressure 107/71, oxygen saturation 100% on 5 L nasal cannula. HEENT: Head normocephalic. No trauma. PERRLA. Neck: Supple. She does have some JVD. Central trachea. Chest: Decreased breath sounds globally with prolonged expiratory phase and crackles bilaterally, mostly at the bases. No wheezing. Abdomen: Soft, protuberant. Tenderness to palpation at the level of the epigastric area and upper part of the abdomen. Nondistended. No hepatosplenomegaly. Extremities: No edema, no clubbing, no cyanosis. Neurological Examination: The patient is awake and alert. She is oriented x3. No focal deficits. Laboratory: WBC 8.3, hemoglobin 9.1, hematocrit 32.1, platelets 163,000. INR 2. Sodium 140, potassium 4.2, chloride 96, bicarbonate 31, BUN 37, creatinine 1.3, glucose 128, calcium 9, phosphorus 3.5, magnesium 1.7. ASSESSMENT AND PLAN: 1. Initially admitted and presented with shock. She was placed on pressors for a little bit and then they were stopped. Her blood pressure has been more stable. I do not think she has a pulmonary embolism because she has been on warfarin and she was therapeutic at that time. Actually, she is therapeutic today as well. 2. Congestive heart failure exacerbation. I have a negative balance of 2.8 L. We will continue with the same management. Her creatinine is increased a little bit though. 3. Acute hypoxemic respiratory failure with chronic hypercarbic respiratory failure. Aware. She has been using the BiPAP machine on and off. She does have pulmonary edema. Pulmonary department on board. 4. Paroxysmal atrial fibrillation. Continue with Coumadin. The INR is therapeutic. 5. Initially treated due to sepsis. I do not have a strong source of infection. She has been placed on antibiotics. We will continue with the same management. 6. Hypomagnesemia, resolved. 7. Hypokalemia with hypophosphatemia, resolved. 8. Mild acute kidney injury. For now, we will continue with the same management. 9. Elevated troponin. Cardiology department evaluated this patient and probably they will do a stress test tomorrow and/or catheterization before going home. 10. Chronic opiate dependence. Aware. Continue with the same management. 11. Gastritis/epigastralgia. Continue proton pump inhibitors and Tums. I will add Carafate and I will ask gastroenterology department to see the patient. cc: Nadeem Stanton MD
[2019-06-20] MEDS: NORCO-5 PO PRN (18:45)
[2019-06-20] MEDS: LIPITOR PO SCH (20:17)
[2019-06-20] MEDS: HEPARIN SUBQ SCH (20:17)
[2019-06-20] MEDS: ZANAFLEX PO PRN (20:17)
--- NOTE | 2019-06-21 01:04 | PULMONOLOGY PROGRESS NOTE ---
DATE: 06/20/2019 SUBJECTIVE: The patient is awake and alert. She does have her BiPAP on. She reports she was taking a nap and she feels better if she tries to lay down with the BiPAP in place. She continues to have some epigastric pain which is not as severe as yesterday. OBJECTIVE: Vital Signs: The patient has been afebrile over the last 24 hours. Blood pressure 132/75, heart rate 101, respiratory rate 12, oxygen saturation 100%. HEENT: Pupils are equal and reactive. Oropharynx is clear. Neck: Supple. Chest: Reveals mild prolonged expiratory phase. Cardiac: S1-S2. Abdomen: Obese and soft. Extremities: Reveal trace edema. LABORATORIES: Chest x-ray reveals shallow inspiration with continued mild changes at the right base. Sodium 140, potassium 4.2, chloride 96, BUN 37, creatinine 1.3. White blood count 8.38, hemoglobin 9.1, platelet count 163,000. IMPRESSION: A 58-year-old with: 1. Acute hypoxemic respiratory failure. 2. Chronic hypercapnic respiratory failure. 3. Ongoing tobacco use/nicotine addiction suspected (see consultation). 4. Noncompliance with medical regimen. 5. Pneumonia. 6. Epigastric pain. PLAN: 1. Continue to cycle BiPAP at bedtime and p.r.n. 2. Continue antibiotics. 3. Wean oxygen as tolerated. 4. Agree with plans for GI evaluation with ongoing epigastric pain. I will add amylase and lipase to her morning labs. cc: Indra Bowens MD
[2019-06-21] MEDS: DUONEB (A & A) INH SCH ×6 (03:07→23:31)
[2019-06-21] MEDS: MORPHINE IV PRN ×3 (03:17→19:55)
[2019-06-21] MEDS: NORCO-5 PO PRN (05:23)
[2019-06-21] MEDS: KLONOPIN PO PRN ×2 (05:23→20:31)
[2019-06-21] MEDS: CARAFATE PO SCH ×4 (06:08→20:28)
--- NOTE | 2019-06-21 07:32 | PROGRESS NOTE ---
DATE: 06/21/2019 SUBJECTIVE: The patient is still complaining of epigastric pain. It is documented that her urine output is low, but she is also voiding in the toilet and flushing the urine, so I do not know exactly how much urine she is making. I asked the patient to void in the commode so we can know exactly how much urine she makes and we can control that. Today, she has been scheduled for a stress test, but she is requesting to postpone this stress test due to her epigastric pain. Gastroenterology department has been consulted. I will wait for recommendations. I added Carafate yesterday to her medications. OBJECTIVE: Vital Signs: Temperature 97.8 degrees, pulse 83, respiratory rate 12, blood pressure 97/66, oxygen saturation 98 on the BiPAP machine. HEENT: Head normocephalic, no trauma. PERRLA. Neck: Supple. I do not see JVD. Central trachea. Chest: Decreased breath sounds globally with prolonged expiratory phase and crackles at the bases mostly. Abdomen: Soft, protuberant, tender to palpation at the level of the epigastric area and upper part of the abdomen, nondistended. No hepatosplenomegaly. Extremities: No edema, no clubbing, no cyanosis. Neurological: The patient is awake. She is alert. She is oriented x3. No focal deficits. LABORATORY: Pending lab work at this moment. ASSESSMENT AND PLAN: 1. Initially admitted and had an episode of shock. The patient was placed on pressor for in the ICU and then they were stopped. Her blood pressure has been more stable. I do not think she has a pulmonary embolism because she has been on warfarin and, at that time, she was therapeutic. Actually the patient told me that her warfarin was stopped because she was supratherapeutic, INR level more than 9, before coming to the hospital. Today, the INR was 2.03 and I will continue with the same management. Cardiology Department on board. 2. Congestive heart failure exacerbation. We have a negative balance documented of 2.6 L but she has been voiding in the toilet and flushing the urine, so I do not know exactly how much urine she is actually making. Her BUN and creatinine were higher yesterday. I will hold for now the furosemide and I will contact Cardiology Department to evaluate this patient. 3. Acute hypoxemic respiratory failure with chronic hypercarbic respiratory failure, aware. She has been using the BiPAP machine on and off. She does have pulmonary edema. Pulmonary Department on board. 4. Possible underlying pneumonia, continue with antibiotics. 5. Paroxysmal atrial fibrillation, continue with Coumadin. INR yesterday was therapeutic, pending today. 6. Initially treated due to sepsis. Likely this patient has an underlying pneumonia. We are treating this patient with antibiotics. She seems to be better. We will continue with same management. 7. Hypomagnesemia, resolved. Pending lab work today. 8. Hypokalemia with hypophosphatemia, resolved per the new lab work. 9. Mild acute kidney injury. I will hold the furosemide today for now. I will notify Cardiology Department about this. She has been placed on Lasix 40 mg IV daily. I will keep an eye on this for now. I do not know exactly how much urine she is making, but I asked the patient to urinate in the bedside commode, so we can know the amount of urine. 10. Elevated troponin. Cardiology Department evaluated this patient. This patient is scheduled to have a stress test done today, but the patient has been requesting to do the procedure once her epigastric pain is better. I will notify Cardiology Department. 11. Gastritis/gastralgia. Continue proton pump inhibitors, Tums and I added Carafate to her medications. Gastroenterology Department has been consulted. cc: Nadeem Stanton MD
[2019-06-21 07:35] LABS: INR 1.81; PROTIME 21.4 Seconds (11.0-16.0)
[2019-06-21 07:36] LABS: EOS# 0.05 X1000 (0.0-0.7); EOS% 0.6 % (0.0-10.0); HEMATOCRIT 31.8 % (37.0-47.0); HEMOGLOBIN 8.9 g/dL (12.0-16.0); IMM GRAN# 0.02 X1000 (0.0-0.04); IMM GRAN% 0.3 % (0.0-0.5); LYMPH% 16.5 % (20.5-51.1); MCH 23.1 PG (27-31); MCV 82.4 FL (81-99); MONO# 0.77 X1000 (0.11-0.59); MONO% 9.8 % (1.7-9.3); NEUT# 5.75 X1000 (1.4-6.5); NEUT% 72.8 % (42.2-75.2); PLT 148 X1000 (130-400); RBC 3.86 XMIL (4.2-5.4); WBC 7.89 X1000 (4.8-10.8)
[2019-06-21 07:52] LABS: ALB/GLOB RATIO 1.3; ALBUMIN 3.3 g/dL (3.5-5.0); CALCIUM 8.3 mg/dL (8.8-10.2); CREATININE 1.3 mg/dL (0.5-0.9); TOTAL BILIRUBIN 0.78 mg/dL (0.20-1.00); TOTAL PROTEIN 5.8 g/dL (6.3-8.3)
[2019-06-21 08:03] LABS: AMYLASE 51 U/L (20-200); LIPASE 12 U/L (13-60)
[2019-06-21] MEDS ORDERED: LEXISCAN ONE (08:41)
[2019-06-21] MEDS: COREG PO SCH ×2 (09:22→20:28)
[2019-06-21] MEDS: MAXIPIME 1 GM in NS 50 ML IV SCH ×2 (10:18→23:00)
[2019-06-21] MEDS: HEPARIN SUBQ SCH ×2 (10:18→20:28)
[2019-06-21] MEDS: SODIUM CHLORIDE 0.9% INJ SCH (10:19)
[2019-06-21] MEDS: PROTONIX IV SCH ×2 (10:19→20:28)
[2019-06-21] MEDS: PREDNISONE PO SCH (14:21)
[2019-06-21] MEDS: PLAVIX PO SCH (14:21)
--- NOTE | 2019-06-21 15:10 | Diag Imaging Result Doc PS360 ---
EXAM: US RENAL 2 (RETROPER) COMPLETE INDICATION: decreased renal function TECHNIQUE: COMPARISON: 03/22/2018 FINDINGS: The kidneys are grossly normal in echotexture with no discrete renal mass or hydronephrosis. The right kidney measures 11.6 cm and the left kidney measures 9.4 cm in the greatest dimensions. The right renal cortex measures 1.4 cm and the left renal cortex measures 1.1 cm in thickness. The urinary bladder is normally distended and is grossly unremarkable. IMPRESSION: Grossly normal renal ultrasound. Electronically signed by Jose Escoto 06/21/2019 3:08 PM
--- NOTE | 2019-06-21 15:23 | GASTROENTEROLOGY CONSULTATION ---
DATE: 06/21/2019 REASON FOR CONSULTATION: Abdominal pain, dysphagia. HISTORY OF PRESENT ILLNESS: This is a 58-year-old female who was admitted to the hospital on 06/15/2019 admitted for chronic respiratory failure, COPD and congestive heart failure. She is currently on oxygen and also has been on a CPAP machine. She states over the last several days she was having some problems with epigastric pain and pain when she swallowed especially when she ate. She points to the distal esophagus. MEDICAL HISTORY: COPD, hypertension, congestive heart failure, atrial fibrillation, chronic opioid dependence. PAST SURGICAL HISTORY: Cholecystectomy, carotid endarterectomy, renal stent placement. ALLERGIES: Levaquin causing rash, NSAIDs unknown reaction reported. HOME MEDICATIONS: Albuterol inhaler every 4 hours as needed, carvedilol 25 mg daily, Coreg 12.5 mg every night, Klonopin 0.5 mg 3 times a day, Plavix 75 mg daily, Lasix 120 mg daily, Forreston 5 one every 12 hours as needed, Protonix 40 mg daily, Zanaflex 4 mg twice a day as needed, Coumadin 5 mg daily as directed, Coumadin 2.5 mg every night. SOCIAL HISTORY: Former smoker. No reported alcohol use. She is . REVIEW OF SYSTEMS: Per history of present illness. PHYSICAL EXAMINATION: Vital Signs: Temperature 98.4 degrees, pulse 70, respirations 16, blood pressure 80/52. HEENT: Normocephalic, atraumatic. Pupils equal, round, reactive to light. Sclerae nonicteric. Respiratory: Lung sounds with some decreased sounds and crackles. Abdomen: Soft, slightly tender with palpation. Extremities: No lower extremity edema noted. Neurological: Cranial nerves 2-12 grossly intact. Patient is awake and alert. DIAGNOSTIC RESULTS: Laboratory, hematology WBC 7.89, hemoglobin 8.9, hematocrit 31.8, MCV 82.4, platelet 148,000. Coagulation pro time 21.4, INR 1.81. Chemistry, sodium 140, potassium 4.0, chloride 95, CO2 of 32, BUN 37, creatinine 1.3, glucose 96, calcium 8.3, total bilirubin 0.78, AST 18, ALT 13, alkaline phosphatase 104. ASSESSMENT AND PLAN: 1. Congestive heart failure exacerbation. 2. Respiratory failure. Patient is on oxygen and has been on a BiPAP machine. 3. Atrial fibrillation on Coumadin. 4. Electrolyte imbalance, receiving replacement. 5. Acute kidney injury. 6. Elevated troponin. Cardiology has seen the patient. 7. Dysphagia, abdominal pain, would continue symptomatic treatment PPI, Carafate for now. Would not recommend EGD at present time due to other medical problems making her high risk. We will continue to follow. Hemoglobin and hematocrit today 8.9 and 31.8. There has been no evidence of active gastrointestinal bleeding. Will continue current medications and further plans will be made according to her progress. Would need EGD once stable enough to proceed with a procedure. I have discussed this case with Dr. Byrnes. Thank you for this consultation. Dictated by RALPH Sanchez for Froylan Byrnes MD cc: RALPH Mueller MD
[2019-06-21] MEDS: LIPITOR PO SCH (20:28)
--- NOTE | 2019-06-21 21:42 | PROGRESS NOTE ---
DATE: 06/21/2019 SUBJECTIVE: The patient reports epigastric pain which is aggravated by eating. She was to have Lexiscan sestamibi today but blood pressure was low and stress portion of this study was postponed. She denies any chest pain. She still has some cough productive of clear sputum. There has been no chest pain. No shortness of breath. OBJECTIVE: Vital Signs: Blood pressure 106/60, heart rate 87, oxygen saturation 97% on nasal cannula oxygen. Neck: There is no significant jugular venous distention. Chest: Is clear to auscultation bilaterally. Cardiac: Reveals a regular rate and rhythm without appreciable murmur or gallop. Extremities: Are without edema. LABORATORY DATA: Includes a white blood cell count 7.89, hematocrit 31.8, hemoglobin 8.9, platelet count 148,000. Sodium 140, potassium 4.0, chloride 95, carbon dioxide 32, BUN 37, creatinine 1.3, glucose 96, ProTime 21.4, INR 1.81. IMPRESSION: 1. Acute on chronic congestive heart failure. Improved with diuresis. Actually patient clinically appears probably to have prerenal azotemia following diuresis. 2. Very mild elevation in troponins probably related to is supply demand mismatch in setting of exacerbation of congestive heart failure/increased left ventricular wall stress. 3. Atherosclerotic coronary disease. Previous coronary angiography in 2016 dictated medical management. 4. Epigastric discomfort. Clinical features suspicious for gastritis. 5. Atrial fibrillation, paroxysmal. The patient continues on anticoagulation with warfarin. 6. Hypertension. 7. Previous cerebrovascular accident. RECOMMENDATIONS: 1. Hold on further diuresis as you are doing. 2. Reassess coronary disease. Unless large defect demonstrated, would gravitate toward continued medical management. 3. Continue Protonix and sucralfate. cc: Migel Nichols MD
[2019-06-22 00:24] LABS: URINE SOURCE VOIDED
[2019-06-22 00:34] LABS: BILIRUBIN URINE NEGATIVE (NEGATIVE); BLOOD URINE TRACE (NEGATIVE); COLOR YELLOW; GLUCOSE URINE NEGATIVE (NEGATIVE); KETONE URINE NEGATIVE (NEGATIVE); LEUKOCYTES URINE NEGATIVE (NEGATIVE); NITRITE URINE NEGATIVE (NEGATIVE); PH URINE 6.5; PROTEIN URINE 100 mg/dL (NEGATIVE); SP GRAVITY URINE 1.023; TURBIDITY URINE CLEAR (CLEAR); UR EPITHELIAL CELLS <10 /HPF (<10); URINE BACTERIA NEGATIVE /HPF; URINE RBC <10 /HPF (<10); URINE WBC <10 /HPF (<10); UROBILINOGEN URINE NORMAL (NORMAL)
[2019-06-22 01:06] LABS: UR CREAT RANDOM 108.3 mg/dL (11-20)
[2019-06-22] MEDS: DUONEB (A & A) INH SCH ×6 (02:55→23:07)
[2019-06-22] MEDS: MORPHINE IV PRN ×4 (04:54→20:13)
[2019-06-22] MEDS: CARAFATE PO SCH ×4 (06:37→20:13)
--- NOTE | 2019-06-22 06:56 | Diag Imaging Result Doc PS360 ---
CHEST-PORTABLE - 06/22/2019 INDICATION: abnormal exam COMPARISON: 06/20/2019 FINDINGS: Stable cardiomegaly and pulmonary vascular congestion. There is a small right pleural effusion, worsening from prior. Stable hazy interstitial infiltrates bilaterally compatible with pulmonary edema. IMPRESSION: Worsening versus redistribution of a small right pleural effusion. Otherwise no change from prior. Electronically signed by Wan Eddy 06/22/2019 6:53 AM
--- NOTE | 2019-06-22 07:59 | PULMONOLOGY PROGRESS NOTE ---
DATE: 06/21/2019 SUBJECTIVE: The patient is awake, alert, and conversant. She reports some epigastric pain which has not changed. OBJECTIVE: Vital Signs: The patient has been afebrile for the last 24 hours. Blood pressure 106/60, heart rate 87, respiratory rate 18, and oxygen saturation 97%. HEENT: Pupils are equal and reactive. Oropharynx appears clear. Neck: Supple. Lungs: Chest reveals good air entry bilaterally. Cardiac: S1-S2. Abdomen: Obese and soft. Extremities: Reveal trace edema. LABORATORY: Sodium 140, potassium 4.0, chloride 95, bicarbonate 32, BUN 37, and creatinine 1.3. White blood count 7.89, hemoglobin 8.9, and platelet count 148,000. IMPRESSION: A 58-year-old with: 1. Acute hypoxemic respiratory failure. 2. Chronic hypercapnic respiratory failure. 3. Pneumonia. 4. Epigastric pain. 5. Suspected ongoing tobacco use. PLAN: 1. Await GI recommendations. 2. Continue BiPAP at bedtime and p.r.n. 3. Follow up chest x-ray tomorrow. cc: Indra Bowens MD
[2019-06-22 08:15] LABS: INR 1.62; PROTIME 19.6 Seconds (11.0-16.0)
[2019-06-22 08:31] LABS: EOS# 0.04 X1000 (0.0-0.7); EOS% 0.4 % (0.0-10.0); HEMATOCRIT 33.4 % (37.0-47.0); HEMOGLOBIN 9.4 g/dL (12.0-16.0); LYMPH# 1.14 X1000 (1.2-3.4); LYMPH% 12.5 % (20.5-51.1); MCHC 28.1 g/dL (33-37); MCV 81.9 FL (81-99); MONO% 9.9 % (1.7-9.3); NEUT# 7.03 X1000 (1.4-6.5); NEUT% 77.2 % (42.2-75.2); PLT 171 X1000 (130-400); RBC 4.08 XMIL (4.2-5.4); RDW 19.9 % (11.5-14.5); WBC 9.11 X1000 (4.8-10.8)
[2019-06-22 08:40] LABS: ALB/GLOB RATIO 1.2; ALBUMIN 3.5 g/dL (3.5-5.0); CALCIUM 8.5 mg/dL (8.8-10.2); CREATININE 1.2 mg/dL (0.5-0.9); MAGNESIUM 1.6 mg/dL (1.5-2.7); PHOSPHORUS 2.2 mg/dL (2.7-4.5); POTASSIUM 3.8 mmol/L (3.5-5.1); TOTAL BILIRUBIN 0.74 mg/dL (0.20-1.00); TOTAL PROTEIN 6.4 g/dL (6.3-8.3)
[2019-06-22] MEDS: PREDNISONE PO SCH (09:03)
[2019-06-22] MEDS: MAXIPIME 1 GM in NS 50 ML IV SCH ×2 (09:03→22:48)
[2019-06-22] MEDS: HEPARIN SUBQ SCH (09:04)
[2019-06-22] MEDS: COREG PO SCH ×2 (09:04→20:13)
[2019-06-22] MEDS: SODIUM CHLORIDE 0.9% INJ SCH (09:04)
[2019-06-22] MEDS: PROTONIX IV SCH ×2 (09:04→20:13)
[2019-06-22] MEDS: PLAVIX PO SCH (09:04)
[2019-06-22 09:05] LABS: LYMPHS 14 % (21-51); MONO 4 % (1-9); SEGS 82 % (42-75)
[2019-06-22] MEDS: ZANAFLEX PO PRN ×2 (09:05→21:04)
[2019-06-22 09:06] LABS: ANISOCYTOSIS 1+; HYPOCHROM 2+
[2019-06-22] MEDS: LASIX IV SCH ×2 (09:12→09:13)
[2019-06-22] MEDS ORDERED: LEXISCAN ONE (10:27)
--- NOTE | 2019-06-22 12:28 | PROGRESS NOTE ---
DATE: 06/22/2019 SUBJECTIVE: The patient is still complaining of epigastric pain. She has been evaluated by the nephrology department. Given her current presentation and worsening x-ray findings, Dr. Iraheta has suggested to continue with Lasix. It has been placed 40 IV daily and monitor. I do not have any new lab work today. Urine output seems to be a little bit better compared with yesterday. OBJECTIVE: Vital Signs: Temperature 99.4 degrees, pulse 74, respiratory rate 20, blood pressure 112/64, oxygen saturation 97% on 5 L nasal cannula. HEENT: Head normocephalic. No trauma. PERRLA. Neck: Supple. I do not see JVD. Central trachea. Chest: Decreased breath sounds globally with prolonged expiratory phase and crackles bilaterally, mostly at the bases. Abdomen: Soft, protuberant. Tender to palpation at the level of the epigastric area and upper part of the abdomen. Nondistended. No hepatosplenomegaly. Extremities: No edema, no clubbing, no cyanosis. Neurological Examination: The patient is awake. She is alert. She is oriented x3. No focal deficits. Laboratory: Pending lab work today. ASSESSMENT AND PLAN: 1. Initially admitted and had an episode of shock. The patient was placed on pressors in the intensive care unit and then they were stopped once the blood pressure was better. I do not think she has a pulmonary embolism because she has been on warfarin and at that time, she was therapeutic and actually, the patient told me that her INR was elevated a few days before admission, more than 9, and her warfarin was stopped. Cardiology department on board. 2. Congestive heart failure exacerbation with a worsening pulmonary edema. I discussed the case with nephrology department. We will continue with Lasix today, I held that yesterday, to see how she does. She has a better urine output. 3. Acute hypoxemic respiratory failure with chronic hypercarbic respiratory failure. Aware. She has been using the BiPAP machine on and off. She does have pulmonary edema. Pulmonary department on board as well. 4. Possible underlying pneumonia. Continue with antibiotics. 5. Paroxysmal atrial fibrillation. Continue with Coumadin. INR is a little bit subtherapeutic. 6. Initially treated due to sepsis. Likely, this patient has an underlying pneumonia. We are treating this patient with antibiotics. She seems to be breathing better but she is still having hypoxemic respiratory failure and using the BiPAP machine on and off. 7. Hypomagnesemia. It was normal on 06/20/2019. I will repeat it again today. 8. Hypokalemia with hypophosphatemia. Pending lab work. 9. Mild acute kidney injury. Urine output is still a little bit low. I held the Lasix yesterday and I will restart the Lasix today. I discussed the case with nephrology department. 10. Elevated troponin. Cardiology department already on board. The patient was scheduled to have a stress test done yesterday but she started having low blood pressure, so we are holding for now the stress test. I notified Dr. Conroy about it. 11. Gastritis/epigastralgia. Continue with proton pump inhibitor, Tums, and Carafate. Gastroenterology department on board. cc: Nadeem Stanton MD
--- NOTE | 2019-06-22 13:31 | Diag Imaging Result Document ---
PROCEDURE NAME: MYOCARDIAL PERF SCAN, STR/REST - 06/21/2019 SUMMARY: The patient was administered 13.2 mCi of technetium-99m sestamibi, after which resting cardiac images were obtained. The patient was subsequently administered Lexiscan 0.4 mg intravenously, after which the heart rate went from 71 beats per minute to 82 beats per minute, and the blood pressure went from 117/66 to 110/67. With Lexiscan, the patient denied chest discomfort. Following the administration of Lexiscan, the patient was administered 36.2 mCi of technetium 99-m sestamibi after which gated stress cardiac images were obtained. Baseline ECG demonstrated sinus rhythm, inferior infarct of undetermined age, and nonspecific T- wave abnormality. With Lexiscan, there were no diagnostic ST-segment changes. With baseline, T wave abnormality remaining essentially unchanged. SPECT images were reconstructed in the short, horizontal, and vertical long axis. Review of planar images suggested significant breast attenuation shadow. Review of SPECT images demonstrates a large defect involving the mid to apical anterior wall and the apex of left ventricle on stress images which appears similar on resting images. There is also moderately diminished activity in the entire lateral wall on stress images which appears similar on resting images. No significant reversibility is evident. Gated images demonstrate a calculated left ventricular ejection fraction of 46% with severe apical hypokinesis suggested. CONCLUSIONS: 1. Adequate response to Lexiscan. 2. Clinically negative for chest pain. 3. Electrocardiographically, there were no diagnostic ST-segment changes on ECG following administration of Lexiscan. 4. Lexiscan sestamibi images somewhat influenced by breast attenuation demonstrating large moderate to severe defect in the basal mid to apical anterior wall and apex which is fixed, and associated with apical severe hypokinesis. Results suggests prior infarction. There is also a large defect of moderate intensity in the lateral wall left ventricle which is also fixed. No significant reversibility is evident. Results suggests previous infarction in anteroapical region and lateral wall left ventricle. There is no convincing scintigraphic evidence of inducible myocardial ischemia. Calculated left ventricular ejection fraction of 46% with severe apical hypokinesis. Clinical correlation recommended. cc: MD Nadeem Valdez MD
--- NOTE | 2019-06-22 16:23 | PROVIDER PROGRESS NOTE ---
Progress Note Chief complaint: I couldnt breathe. HPI: 57-year-old white female with a past medical history of COPD, diabetes Mellitus type 2, atrial fibrillation, hypertension, heart failure, and an overdose while she was hospitalized last year that required intubation. She came into the emergency department on 06/15/2019 with a three day history of s hortness of breath, non-productive cough, and back pain. She denies any fever, chills, cardiac chest pain, nausea/vomiting, or diarrhea. Emergency department gave her fluid boluses for treatment of sepsis. Her lactate was 2.3 and she normotensive. She was tachycardic and tachypneic with a chest X-ray showing pulmonary edema. Primary team gave her IV lasix and bronchodilators. She was placed on bipap for acute hypodermic respiratory failure. Her admitting Creatinine was 0.8 and today it is 1.2. Her fractional urea score is 35.17%. Past medical history: COPD, hypertension, congestive heart failure, atrial fibrillation, chronic opioid dependence with ever does, acute kidney injury in 2018. Past surgical history: cholecystectomy, carotid endarterectomy, renal stent. Social: she lives with her at home. She has smoked for 30 years. She denies any alcohol or illicit drug use. Family history: father positive for coronary artery disease. Mother positive for cancer. Allergies: Levofloxacin and NSAIDs. How medications: correct, Klonopin, Plavix, furosemide, [place] five, protonix, Zanaflex, warfarin sodium, albuterol sulfate inhaler. Review of systems: Negative except form pertinent positive listed in HPI. Labs: WBC 9.11, hemoglobin 9.4, hematocrit 33.4, platelet count 171, sodium 141, potassium 3.8, chloride 94, carbon dioxide 32, BUN 33, creatinine 1.2. Intake 2630, output 700. Imaging: Renal ultrasound shows right kidney 11cm and left kidney 9.4. Chest x- ray impression worsening versus redistribution of right small pleural effusion. Physical exam: temperature 97.4, pulse 77, respirations 20, blood pressure 123/71, 02 sat 99% on 5 L nasal cannula. General: Ill appearing White female lying in bed in no acute distress HEENT: normocephalic, atraumatic, pupils equal and reactive, membranes moist, trachea midline Skin: warm and dry Neck: supple, no JVD noted Cardiovascular: s1S2, regular rate and rhythm. No murmurs or gallop noted. Respiratory: clear and diminished bilaterally. Abdomen: soft, nontender, nondistended, bowel sounds active : non inspected Extremities: No clubbing or cyanosis. Trace bilateral ankle edema. Neurological:alert and oriented to person, place, and time. Assessment and plan: Acute kidney injury. Likely prerenal secondary to heart failure and diuretics. Creatinine stable the last 4 days. Continue to hold fluids for worsening chest X-ray effusions. Restart diuretics. Discussed with Dr. North. Blood pressure. In target. Acid base balance and electrolytes. In target. Fluid volume. Euvolemic on exam. Anemia. Stable. Nutrition. Adequate. Medication review. No changes.
[2019-06-22] MEDS ORDERED: COUMADIN PO ONE (17:26)
[2019-06-22] MEDS: KLONOPIN PO PRN (20:13)
[2019-06-22] MEDS: LIPITOR PO SCH (20:13)
--- NOTE | 2019-06-22 20:44 | GASTROENTEROLOGY PROGRESS NOTE ---
DATE: 06/22/2019 SUBJECTIVE: On rounds today, patient was gone for tests. She has been taken for a myocardial perfusion scan. Records were reviewed. VITAL SIGNS: Temperature 97.4 degrees, pulse 77, respirations 20, blood pressure 123/71. LABORATORY: Hematology: WBC 9.11, hemoglobin 9.4, hematocrit 33.4, MCV 81.9, platelet 171,000. Chemistry: Sodium 141, potassium 3.8, chloride 94, CO2 32, BUN 33, creatinine 1.2, glucose 112, calcium 8.5, phosphorus 2.2, total bilirubin 0.74, AST 18, ALT 17, alkaline phosphatase 121. ASSESSMENT AND PLAN: 1. Congestive heart failure. 2. Respiratory failure. Patient is on oxygen and has been on a BiPAP machine. 3. Atrial fibrillation. 4. Elevated troponin. Patient is being followed by Cardiology and is having a myocardial perfusion scan today. 5. Epigastric pain, dysphagia. Would not proceed with esophagogastroduodenoscopy at this time until further cardiac workup is completed and she is more stable. Her hemoglobin and hematocrit have improved some today. We will continue to follow during her hospital course, and further plans will be made according to her progress. 6. Would continue proton pump inhibitor and Carafate. 7. I have discussed this case with Dr. Byrnes. Dictated by RALPH Sanchez for Froylan Byrnes MD cc: RALPH Mueller MD
[2019-06-23] MEDS: MORPHINE IV PRN ×4 (00:55→16:21)
[2019-06-23] MEDS: DUONEB (A & A) INH SCH ×6 (03:09→23:19)
[2019-06-23] MEDS: CARAFATE PO SCH ×4 (06:21→20:55)
[2019-06-23] MEDS: ZANAFLEX PO PRN ×2 (07:47→21:19)
[2019-06-23] MEDS: PROTONIX IV SCH ×2 (08:00→20:55)
[2019-06-23] MEDS: SODIUM CHLORIDE 0.9% INJ SCH (08:00)
[2019-06-23] MEDS: COREG PO SCH ×2 (08:00→20:55)
[2019-06-23] MEDS: PLAVIX PO SCH (08:00)
[2019-06-23] MEDS: PREDNISONE PO SCH (08:00)
[2019-06-23] MEDS: LASIX IV SCH ×2 (08:01→10:26)
[2019-06-23 09:09] LABS: EOS# 0.11 X1000 (0.0-0.7); EOS% 1.1 % (0.0-10.0); HEMATOCRIT 32.6 % (37.0-47.0); HEMOGLOBIN 9.1 g/dL (12.0-16.0); IMM GRAN# 0.02 X1000 (0.0-0.04); IMM GRAN% 0.2 % (0.0-0.5); LYMPH# 1.64 X1000 (1.2-3.4); LYMPH% 16.5 % (20.5-51.1); MCH 23.2 PG (27-31); MCHC 27.9 g/dL (33-37); MONO# 0.97 X1000 (0.11-0.59); MONO% 9.7 % (1.7-9.3); NEUT# 7.22 X1000 (1.4-6.5); NEUT% 72.5 % (42.2-75.2); PLT 157 X1000 (130-400); RBC 3.93 XMIL (4.2-5.4); RDW 19.6 % (11.5-14.5); WBC 9.96 X1000 (4.8-10.8)
[2019-06-23 09:33] LABS: CALCIUM 8.9 mg/dL (8.8-10.2); CREATININE 1.1 mg/dL (0.5-0.9)
[2019-06-23] MEDS: MAXIPIME 1 GM in NS 50 ML IV SCH ×2 (09:40→22:25)
[2019-06-23 09:52] LABS: BANDS 2 % (0-1); LYMPHS 12 % (21-51); MONO 6 % (1-9); SEGS 78 % (42-75)
[2019-06-23 09:53] LABS: ANISOCYTOSIS 1+; HYPOCHROM 1+; LARGE PLATELETS 1+
--- NOTE | 2019-06-23 10:42 | PROGRESS NOTE ---
DATE: 06/23/2019 SUBJECTIVE: This patient is still complaining of epigastric pain. Also, she is complaining of back pain and peripheral neuropathy. Her blood pressure has been on the low side. Today at 7:52, it was 97/55, but I can see that it has been in the 100s and 110s. Since she has been complaining of epigastric pain, Gastroenterology Department evaluated this patient. They probably would like to do an EGD, and I mentioned that to the patient, but she states that she will not do it. For now, will continue with the same management. We have been trying to do a stress test, but we will do it once the blood pressure and her general condition is better. OBJECTIVE: Vital Signs: Temperature 98.6 degrees, pulse 63, respiratory rate 20, blood pressure 97/55, oxygen saturation 100% on nasal cannula. HEENT: Head normocephalic. No trauma. PERRLA. Neck: Supple. I do not see JVD. Central trachea. Chest: Decreased breath sounds globally with prolonged expiratory phase and some crackles bilaterally, mostly at the bases. Abdomen: Soft, protuberant. Tender to palpation at the level of the epigastric area and upper part of the abdomen. Nondistended. No hepatosplenomegaly. Extremities: Trace edema. No clubbing, no cyanosis. Neurological: The patient is awake. She is oriented x3. No focal deficits. LABORATORY DATA: Pending lab work at this moment. ASSESSMENT AND PLAN: 1. Initially admitted, and she had an episode of shock. This patient was placed on vasopressors in the intensive care unit, and they actually were stopped once the blood pressure was better. I do not think she has a pulmonary embolism because she has been on warfarin, and the warfarin was therapeutic, and actually, the patient told me that before coming to the hospital, the INR was more than 9, and she has been holding the warfarin. Pending lab work today. Yesterday, it was a little bit subtherapeutic. There is a possibility of underlying pneumonia. Will continue with antibiotics. 2. Congestive heart failure exacerbation with worsening pulmonary edema. I have been holding the Lasix today because I do not have any new labs. Nephrology Department on board, as well as Cardiology Department. She received a dose of Lasix yesterday, and the urine output is 1.5 liters in the past 24 hours. 3. Acute hypoxemic respiratory failure with acute on chronic hypercarbic respiratory failure. Aware. Pulmonary Department on board. She has been using the bilevel positive airway pressure machine on and off. She does have some pulmonary edema. 4. Possible underlying pneumonia. Continue with antibiotics. 5. Paroxysmal atrial fibrillation. Continue with Coumadin. Pending lab work today. 6. Initially treated due to sepsis. Aware. 7. Hypomagnesemia. Pending lab work. 8. Hypokalemia with hypophosphatemia. Pending lab work today. 9. Mild acute kidney injury. Her urine output improved after getting some Lasix yesterday. She urinated around 1.5 liters. Nephrology Department on board. Pending lab work today. 10. Elevated troponin. Cardiology Department evaluated this patient. We tried to do a stress test on this patient a couple days ago, but she had low blood pressure during the procedure, so we are holding for now the stress test, but before discharging this patient, she should have a stress test done or any other procedure. 11. Epigastralgia. Continue with proton pump inhibitor, Tums and Carafate. Gastroenterology Department on board. They have been mentioning in their notes that probably this patient will need to do an esophagogastroduodenoscopy. I talked to the patient, and she refused that though. cc: Nadeem Stanton MD
--- NOTE | 2019-06-23 13:25 | PROVIDER PROGRESS NOTE ---
Progress Note Subjective: Pt very agitated about not getting pain medication for her back and threatening to leave AMA. Refused to work on ambulation because of pain. She would not reposition to her back for an adequate exam. Objective: temperature 99.4, pulse 78, respirations 18, blood pressure 109/71, O2 sat 100% bipap. General: Ill appearing White female lying in bed agitated. HEENT: normocephalic, atraumatic, pupils equal and reactive, membranes moist, trachea midline Skin: warm and dry Neck: supple, JVD unobserved due to position Cardiovascular: s1S2, regular rate and rhythm. No murmurs or gallop noted. Respiratory: clear and diminished bilaterally. Abdomen: soft, obese, nontender, nondistended, bowel sounds active : non inspected Extremities: No clubbing or cyanosis. Trace bilateral ankle edema. Neurological:alert and oriented to person, place, and time. Labs: intake 1454, output 1500 with two voids not measured. Sodium 140, po tassium 4.0, chloride 93, carbon dioxide 32, BUN 32, creatinine 1.1. Impression: Acute kidney injury. Likely acute tubular necrosis secondary to heart failure and diuretics. Creatinine Has been stable and is now trending down. Continue current plan. Blood pressure. In target. Acid base balance and electrolytes. In target. Fluid volume. On diuretics. Continue. Anemia. Stable. Nutrition. Adequate. Medication review. No changes.
--- NOTE | 2019-06-23 20:26 | GASTROENTEROLOGY PROGRESS NOTE ---
DATE: 06/23/2019 SUBJECTIVE: The patient still complains of epigastric pain and some trouble swallowing with certain foods. Her hemoglobin and hematocrit are 9.1 and 32.6 today. We had discussed the patient following up with us as an outpatient for possible EGD once her other symptoms have improved. The patient states she does not want an EGD at this time. OBJECTIVE: Vital signs: Temperature 98.6 degrees, pulse 67, respirations 20, blood pressure 98/62. Generally the patient is awake and alert, in no acute distress. LABORATORY DATA: Hematology: WBC 9.96, hemoglobin 9.1, hematocrit 32.6, MCV 83.0, platelets 157,000. Chemistry: Sodium 140, potassium 4.0, chloride 93, CO2 of 32, BUN 32, creatinine 1.1, glucose 125, total bilirubin 0.74, AST 18, ALT 17, alkaline phosphatase 121. ASSESSMENT AND PLAN: 1. Congestive heart failure. 2. Respiratory failure. The patient is on oxygen. She had also previously been on a bilevel positive airway pressure machine. 3. Atrial fibrillation. 4. Elevated troponin. The patient is being followed by Cardiology. 5. Epigastric pain/dysphagia. The patient does not want to proceed with esophagogastroduodenoscopy at this time and Gastroenterology does not recommend proceeding with esophagogastroduodenoscopy at present time until her other symptoms have improved. I have given her contact information to follow up with us as an outpatient. Would recommend continuing proton pump inhibitor and Carafate. Gastroenterology will currently sign off for now, but please reconsult if needed. I have discussed this case with Dr. Byrnes. Dictated by RALPH Sanchez for Froylan Byrnes MD cc: RALPH Mueller MD
[2019-06-23] MEDS: LIPITOR PO SCH (20:55)
[2019-06-23] MEDS: COUMADIN PO SCH (20:55)
--- NOTE | 2019-06-23 22:15 | PULMONOLOGY PROGRESS NOTE ---
DATE: 06/23/2019 SUBJECTIVE: The patient is awake and alert. She reports she continues to have intermittent epigastric pain. OBJECTIVE: Vital Signs: The patient has been afebrile for the last 24 hours. Blood pressure 109/62, heart rate 69, respiratory rate 19, oxygen saturation 92% on nasal cannula. HEENT: Pupils are equal and reactive. Oropharynx is clear. Neck: Supple. Chest: Reveals occasional rhonchi bilaterally. Cardiac: S1-S2. Abdomen: Soft. Extremities: Without edema. IMPRESSION: A 58-year-old with: 1. Acute hypoxemic respiratory failure with some clinical improvement. 2. Chronic hypercapnic respiratory failure. 3. Pneumonia. 4. Ongoing epigastric pain. 5. Suspected tobacco use/nicotine addiction. PLAN: 1. Consider upper GI. The GI service is concerned she is not able to tolerate an EGD. 2. Continue BiPAP at bedtime and p.r.n. 3. Continue bronchial hygiene. 4. Follow up chest x-ray tomorrow. cc: Indra Bowens MD
[2019-06-24] MEDS: MORPHINE IV PRN ×5 (00:58→20:48)
[2019-06-24] MEDS: KLONOPIN PO PRN ×2 (01:52→12:38)
[2019-06-24] MEDS: DUONEB (A & A) INH SCH ×6 (03:03→23:14)
[2019-06-24] MEDS: CARAFATE PO SCH ×4 (06:37→20:48)
[2019-06-24 07:39] LABS: CALCIUM 8.4 mg/dL (8.8-10.2); CREATININE 1.1 mg/dL (0.5-0.9); POTASSIUM 3.5 mmol/L (3.5-5.1)
[2019-06-24] MEDS: SODIUM CHLORIDE 0.9% INJ SCH ×2 (09:53→20:48)
[2019-06-24] MEDS: PROTONIX IV SCH ×2 (09:53→20:48)
[2019-06-24] MEDS: MAXIPIME 1 GM in NS 50 ML IV SCH ×2 (09:53→20:51)
[2019-06-24] MEDS: PREDNISONE PO SCH (09:53)
[2019-06-24] MEDS: LASIX IV SCH (09:53)
[2019-06-24] MEDS: PLAVIX PO SCH (09:53)
[2019-06-24] MEDS: COREG PO SCH ×2 (09:54→20:48)
[2019-06-24] MEDS: ZANAFLEX PO PRN (12:39)
--- NOTE | 2019-06-24 14:37 | Diag Imaging Result Doc PS360 ---
EXAM: CHEST-2 VIEWS 06/24/2019 HISTORY: abnormal exam TECHNIQUE: PA and lateral chest COMMENT: There is pleural fluid on the right. There is interstitial opacity in both lung bases and cardiomegaly. These findings were also present on 06/22/2019. IMPRESSION: Cardiomegaly, pulmonary edema, and right pleural effusion. Electronically signed by Rubén Leahy 06/24/2019 2:35 PM
--- NOTE | 2019-06-24 15:14 | PROGRESS NOTE ---
DATE: 06/24/2019 SUBJECTIVE: This patient is resting in bed. She was using the BiPAP machine during my evaluation. She is still complaining of epigastric pain, but as per the patient, she feels just a little bit better. She rated her pain 9/10. I will continue with the same management for now. Kidney function seems to be stable. OBJECTIVE: Vital Signs: Temperature 98.1 degrees, pulse 81, respiratory rate 20, blood pressure 98/62, oxygen saturation 97% on nasal cannula. HEENT: Head normocephalic, no trauma. PERRLA. Neck: Supple. I do not see jugular venous distention. Central trachea. Chest: Decreased breath sounds globally with prolonged expiratory phase and some scattered crackles bilaterally at the bases. Abdomen: Soft, protuberant. Some tenderness to palpation at the level of the epigastric area and upper part of the abdomen. Nondistended, positive bowel sounds. Extremities: No edema, no clubbing, no cyanosis. Neurological: The patient is sleepy, but arousable. She is oriented x3. No focal deficits but generalized weakness. LABORATORY: Sodium 138, potassium 3.5, chloride 91 bicarbonate 33, BUN 26, creatinine 1.1 glucose 124, calcium 8.4. ASSESSMENT AND PLAN: 1. Initially, she has been admitted due to an episode of shock. She was placed on vasopressors in the intensive care unit and they were stopped once the blood pressure was better. I do not think she has a pulmonary embolism. She has been on warfarin and warfarin was therapeutic at that moment and actually the patient told me that her INR was elevated before coming to the hospital, it was greater than 9 but that day was around 2. There is a possibility of underlying pneumonia. We will continue with antibiotics. 2. Congestive heart failure exacerbation with worsening pulmonary edema. I restarted the Lasix already. She has been having a decent urine output. We requested an x-ray today, but the patient refused to do a in them to do it in the morning. She would like to do it in the afternoon. 3. Acute hypoxemic respiratory failure on acute on chronic hypercarbic respiratory failure. Aware. Pulmonary Department on board. We will continue with the same management. 4. Possible underlying pneumonia. Continue with antibiotics. 5. Paroxysmal atrial fibrillation. Continue with Coumadin. 6. Initially treated due to sepsis. Aware, likely due to pneumonia. 7. Hypomagnesemia. Stable. 8. Hypokalemia with hypophosphatemia. We will recheck this lab work. 9. Mild acute kidney injury, this is getting better continue with same management. Nephrology department on board. 10. Elevated troponin. Cardiology Department evaluated this patient. They did a stress test a few days ago. We will continue with same treatment for now. 11. Epigastralgia. The patient has been placed on proton pump inhibitors and Carafate. Gastroenterology Department on board. They have been mentioning the possibility of doing an esophagogastroduodenoscopy , but the patient at the beginning refused. Now she may think about it. 12. Pending x-ray at this moment because she did not want to do it in the morning she right. She would like to do the x-ray in the afternoon. cc: Nadeem Stanton MD
--- NOTE | 2019-06-24 15:17 | PROVIDER PROGRESS NOTE ---
Progress Note Subjective: Pt complaining of back pain. No other complaints. Objective: temperature 98.1, pulse 70, respirations 14, blood-pressure 98/62, which is at 100% bipap General: Ill appearing White female lying in bed with increased respiratory effort. HEENT: normocephalic, atraumatic, pupils equal and reactive, trachea midline Skin: warm and dry Neck: supple, JVD unobserved due to position Cardiovascular: s1S2, regular rate and rhythm. No murmurs or gallop noted. Respiratory: clear and diminished bilaterally. Abdomen: soft, obese, nontender, nondistended, bowel sounds active : non inspected Extremities: No clubbing or cyanosis. Trace bilateral ankle edema. Neurological:alert and oriented to person, place, and time. Labs: sodium 138, potassium 3.5, chloride 91, carbon dioxide 33, BUN 26, creatinine 1.1. Intake 50, output 1400. Impression: Acute kidney injury. Prerenal secondary to heart failure and diuretics. Creatinine stable. We will sign off today and follow up with her on an outpatient basis if you desire. rg. Blood pressure. In target. Acid base balance and electrolytes. In target. Fluid volume. On diuretics. Still with abnormal chest x-ray but good diuretic response. rg Anemia. Stable. Nutrition. Adequate. Medication review. No changes.
[2019-06-24] MEDS: COUMADIN PO SCH (20:48)
[2019-06-24] MEDS: LIPITOR PO SCH (20:48)
--- NOTE | 2019-06-24 21:24 | GASTROENTEROLOGY PROGRESS NOTE ---
DATE: 06/24/2019 SUBJECTIVE: The patient was currently getting a breathing treatment at the time of my evaluation. We have been following her for abdominal pain. It is not recommended to proceed with EGD at the present time until her respiratory symptoms improve. The patient did not want to proceed with any endoscopy at present time. OBJECTIVE: Vital signs: Temperature 97.9 degrees, pulse 77, respirations 18, blood pressure 118/64. Generally the patient is awake and alert, in no acute distress. LABORATORY DATA: Hematology: WBC 9.96, hemoglobin 9.1, hematocrit 32.6, MCV 83.0, platelets 157,000. Chemistry: Sodium 138, potassium 3.5, chloride 91, CO2 is 33, BUN 26, creatinine 1.1, glucose 124. ASSESSMENT AND PLAN: 1. Congestive heart failure/pulmonary edema. Continue current management. 2. Respiratory failure. The patient has been transitioned to oxygen and bilevel positive airway pressure when needed. 3. Pneumonia, on antibiotics. 4. Abdominal pain. Continue proton pump inhibitor prophylaxis and Carafate. The patient does not want to proceed with gastrointestinal workup at this time. We have also recommended she continue her medications and follow up with us as an outpatient for further evaluation. I have given her contact information to call and make an appointment. Gastroenterology will currently sign off for now. Please reconsult as needed. I have discussed this case with Dr. Byrnes. Dictated by RALPH Sanchez for Froylan Byrnes MD cc: RALPH Mueller MD
[2019-06-25] MEDS: MORPHINE IV PRN ×3 (00:33→09:56)
--- NOTE | 2019-06-25 01:48 | PULMONOLOGY PROGRESS NOTE ---
DATE: 06/24/2019 SUBJECTIVE: The patient is awake, alert, and conversant. She has minimal sputum production. OBJECTIVE: Vital Signs: She has been afebrile for the last 24 hours. Blood pressure 102/60, heart rate of 70, respiratory rate 16, oxygen saturation 99% on 4 L per nasal cannula. HEENT: Pupils are equal and reactive. Oropharynx is clear. Neck: Supple. Chest: Reveals minimal decreased breath sounds right base. Cardiac: S1, S2. Abdomen: Soft and without hepatosplenomegaly. Extremities: Without edema. LABORATORIES: Chest x-ray reveals decreasing infiltrate at the right base with residual small effusion present. Sodium 138, potassium 3.5, chloride 91, bicarbonate 33, BUN 26, creatinine 1.1. IMPRESSION: A 58-year-old with: 1. Acute hypoxemic respiratory failure. 2. Chronic hypercapnic respiratory failure. 3. Noncompliance with medical regimen. 4. Nicotine addiction/tobacco use. 5. Pneumonia. 6. Epigastric pain which appears less problematic today. PLAN: 1. Consider discontinuing antibiotics after a 10-day course given continued improvement in chest x-ray. 2. Continue to cycle BiPAP at bedtime and p.r.n. 3. Wean oxygen as tolerated. 4. Continue physical therapy. cc: Indra Bowens MD
[2019-06-25] MEDS: KLONOPIN PO PRN ×2 (02:15→11:50)
[2019-06-25] MEDS: DUONEB (A & A) INH SCH ×3 (02:32→11:14)
[2019-06-25] MEDS: MAXIPIME 1 GM in NS 50 ML IV SCH ×2 (02:56→09:55)
[2019-06-25] MEDS: CARAFATE PO SCH ×2 (06:10→12:32)
[2019-06-25 07:39] LABS: INR 2.07; PROTIME 23.8 Seconds (11.0-16.0)
[2019-06-25 07:56] LABS: CALCIUM 8.7 mg/dL (8.8-10.2); CREATININE 1.1 mg/dL (0.5-0.9); MAGNESIUM 1.1 mg/dL (1.5-2.7); PHOSPHORUS 1.6 mg/dL (2.7-4.5); POTASSIUM 3.2 mmol/L (3.5-5.1)
[2019-06-25 08:03] LABS: HEMATOCRIT 32.6 % (37.0-47.0); HEMOGLOBIN 9.3 g/dL (12.0-16.0); MCH 23.4 PG (27-31); MCHC 28.5 g/dL (33-37); MCV 82.1 FL (81-99); PLT 181 X1000 (130-400); RBC 3.97 XMIL (4.2-5.4); RDW 19.6 % (11.5-14.5); WBC 12.34 X1000 (4.8-10.8)
[2019-06-25] MEDS: LASIX IV SCH (09:55)
[2019-06-25] MEDS: PROTONIX IV SCH (09:55)
[2019-06-25] MEDS: COREG PO SCH (09:56)
[2019-06-25] MEDS: PREDNISONE PO SCH (09:56)
[2019-06-25] MEDS: PLAVIX PO SCH (09:56)
[2019-06-25] MEDS: SODIUM CHLORIDE 0.9% INJ SCH (09:56)
[2019-06-25 11:18] VITALS: BP 154/88
--- NOTE | 2019-06-26 20:13 | DISCHARGE SUMMARY ---
ADMISSION DATE: 06/15/2019 DISCHARGE DATE: 06/25/2019 CONSULTATIONS DURING ADMISSION: Cardiology was consulted, patient was seen by Dr. David Hoff, followed up by Dr. Stubbs. Gastroenterology was consulted, patient was seen by Dr. Fonseca. Nephrology was consulted, patient was seen by Dr. Iraheta. Pulmonary Medicine was consulted, patient was seen by Dr. Bowens. SIGNIFICANT IMAGING STUDIES: Multiple chest x-rays were done. Initial x-ray did show mild pulmonary edema. A myocardial perfusion scan shows a large defect of moderate intensity in the lateral wall which was fixed. No reversible event. Ejection fraction of 46%, with severe apical hypokinesis. ADMISSION DIAGNOSES: 1. Congestive heart failure. 2. Known pulmonary hypertension. 3. Chronic obstructive pulmonary disease. 4. Paroxysmal atrial fibrillation. 5. Sepsis. DISCHARGE DIAGNOSES: 1. Hypotension on admission, presumably septic. 2. Acute hypoxemic respiratory failure. 3. Acute on chronic hypercarbic respiratory failure. 4. Possible underlying aspiration pneumonitis. 5. Congestive heart failure with both systolic and diastolic dysfunction with pulmonary edema. 6. [id number]-BV-qhcxgtild myocardial infarction. 7. Ischemic cardiomyopathy with abnormal stress test, but no reversibility. 8. Acute kidney injury. PRESENTING COMPLAINT: Shortness of breath and back pain. HISTORY OF PRESENTING COMPLAINT/HOSPITAL COURSE: Ms. Gregory is a 58-year-old, female, who has had multiple admissions to the hospital this year for the same, shortness of breath. She came this time, was evaluated, found to be in congestive heart failure/COPD. She was hypotensive, was initially admitted to the ICU. Ms. Gregory was started on broad-spectrum IV antibiotics and diuretic therapy, was seen by multiple subspecialties including Cardiology, Pulmonary Medicine, Nephrology. During the hospital course, she continued to improve. Her oxygen demand from BiPAP was gradually titrated to nasal cannula oxygenation. Her O2 saturation continues to improve. This morning, she was about 92% on nasal cannula. She referred to be feeling a lot better. Subsequent x-rays continue to show cardiomegaly, pulmonary edema, and right pleural effusion which seems to be fairly stable compared to the ones before. She also had a renal ultrasound, which shows grossly normal renal ultrasound. Ms. Gregory was in the hospital for 10 days. At one point, we thought that she was getting better; however, we thought she still needed about a day or two to be where she will be able to go home successfully. Unfortunately, Ms. Gregory decided to leave against medical advice because she said [place], she needs to go and get things ready for her [place]. Most of the nurses, including the charge nurse on the floor, spoke with her. I went in there myself and spoke with her, and ensured her that she has been in the hospital multiple times for the same thing, and we felt that needed a day or two to get to her baseline where she will be able to be discharged, and that she will ran a higher risk of getting more complicated or coming back in a more severely sick way, but not withstanding the medical advice, Ms. Gregory signed against medical advice and left the hospital. cc: Davin Traylor MD
== END 2019-06-25 14:24 | disposition left against medical advice (07) | DRG 871 ==
LOC: SUPCPDRO → ED 04:45 → EDIPHOLD 09:48 → SUATTDRO 09:48 → 2N 16:19 → ICU 06-16 09:26 → 2N 06-16 22:41 → 3N 06-20 01:21
PROVIDERS: ATTEND Internal Medicine

== ENCOUNTER 2019-07-19 17:49 | Inpatient (IN) ==
[2019-07-19] MEDS ORDERED: QUELICIN ONE (18:02)
[2019-07-19] MEDS ORDERED: AMIDATE ONE (18:02)
--- NOTE | 2019-07-19 18:12 | PROVIDER DOCUMENTATION ---
HPI-General Adult - General Chief Complaint: Shortness of Breath Stated Complaint: SOB Time Seen by Provider: 07/19/19 18:00 Source: EMS Unable to obtain history due to:: urgency Allergies/Adverse Reactions: Patient Allergies Allergy/AdvReac Type Severity Reaction Status Date / Time levofloxacin [From Levaquin] Allergy Intermediate RASH Verified 07/19/19 19:26 NSAIDS (Non-Steroidal Allergy Unknown Unknown Verified 07/19/19 19:26 Anti-Inflamma Home Medications: Home Medication List Medication Instructions Recorded Confirmed Last Taken Type Clopidogrel Bisulfate [Plavix] 75 mg PO DAILY 03/22/18 07/19/19 07/06/18 History Pantoprazole [Protonix] 40 mg PO DAILY 10/09/18 07/19/19 Unknown History Albuterol Sulfate Inhaler 2 puff INH Q6H PRN PRN #1 inhaler 10/20/18 07/19/19 Unknown Rx [Ventolin Hfa] Furosemide 120 mg PO DAILY 12/11/18 07/19/19 Unknown History Albuterol 2.5MG/Ipratrop 0.5MG 3 ml INH Q4H PRN PRN #90 neb 12/12/18 07/19/19 Unknown Rx [Duoneb (A & A)] Warfarin Sodium 5 mg PO DAILY PRN 01/06/19 07/19/19 Unknown History Carvedilol [Coreg] 12.5 mg PO QPM 01/27/19 07/19/19 Unknown History Tizanidine HCl [Zanaflex] 4 mg PO BID PRN 01/27/19 07/19/19 Unknown History Warfarin [Coumadin] 2.5 mg PO QHS 04/27/19 07/19/19 Unknown History Hydrocodone/APAP 5 mg/325 mg 1 ea PO Q12HR PRN #0 05/03/19 07/19/19 Unknown Rx [[place]-5] Carvedilol 25 mg PO QAM 06/15/19 07/19/19 Unknown History Clonazepam [Klonopin] 0.5 mg PO TID 06/18/19 07/19/19 Unknown History - History of Present Illness -Gen Adult Nature of Presenting Problems: 58yo female presents with EMS with CC of shortness of breath. The reported onset was acute on chronic. Per EMS the patient has know hx of CHF, and they were called for shortness of breath today. The patient was not able to tolerate bipap enroute to the hospital and required nasal trumpet and bag mask ventilation. On arrival the patient was able to talk and respond, but was lethargic and getting O2 via bag mask ventilation. Associated Symptoms: reports: shortness of breath Review of Systems - Adult - REVIEW OF SYSTEMS - ADULT ROS:: unobtainable per condition (limited, per EMS) Constitutional: reports: no symptoms reported (unable to obtain reliable ROS given patient in respiratory failure) Respiratory: reports: shortness of breath Past History - Adult - PAST MEDICAL HISTORY-ADULT Review of Records: reports: Old Records Reviewed Cardiovascular: reports: CHF Respiratory: reports: COPD Physical Exam-General - PHYSICAL EXAM-ADULT Initial Vital Signs Reviewed: Yes - CONSTITUTIONAL General Appearance: moderate distress, anxious, lethargic - EYES Eyes: negative: conjuctival exudate - HEAD, EARS, NOSE, MOUTH & THROAT HENMT: normocephalic/atraumatic, moist mucous membranes. negative: hearing deficit - NECK Neck: normal inspection - RESPIRATORY Respiratory: respiratory distress, decreased breath sounds - CARDIOVASCULAR Cardiovascular: regular rate, rhythm, tachycardia. negative: no edema (3+ LE edema) - GASTROINTESTINAL (ABDOMEN) Abdominal Exam: non tender, soft, distended - MUSCULOSKELETAL Extremity: non-tender, swelling - SKIN Integumentary: normal color, warm/dry - NEUROLOGIC Neurologic: grossly normal, other (lethargic, GCS 15) - PSYCHIATRIC Psych/Mental Status: anxious, other (lethargic) Progress - PLAN OF CARE/RESULTS Progress/Plan/Lab Results: Orders Category Date Time Status Nursing- Obtain EKG ONCE Care 07/19/19 18:00 Active CHEST-1 VIEW [RAD] Stat Exams 07/19/19 18:00 Ordered ABG [RESP] Routine Lab 07/19/19 18:00 Ordered CBC WITH ELECTRONIC DIFF [HEME] Stat Lab 07/19/19 18:00 Uncollected COMPREHENSIVE METABOLIC PANEL [CHEM] Stat Lab 07/19/19 18:00 Uncollected PRO B-NATRIURETIC PEPTIDE Stat Lab 07/19/19 18:00 Uncollected PROTIME WITH INR [COAG] Stat Lab 07/19/19 18:02 Uncollected PTT [COAG] Stat Lab 07/19/19 18:02 Uncollected TROPONIN T HIGH SENSITIVITY Stat Lab 07/19/19 18:00 Uncollected Etomidate [Amidate] Med 07/19/19 18:02 Discontinued 40 mg .ROUTE .STK-MED ONE Succinylcholine [Quelicin] Med 07/19/19 18:02 Discontinued 200 mg .ROUTE .STK-MED ONE EKG [EKG] Stat Ther 07/19/19 18:00 Ordered Result Diagrams: 07/19/19 18:37 07/19/19 18:37 - EKG 1 Time of EKG reading by physician:: 19:45 EKG Read and Signed by:: Cosmo Herr EKG Interpretation (*Must complete 3 of following elements*): Abnormal Rate: 91 Rhythm: sinus [place]: normal QRS: normal DE Interval: normal ST Wave: non-specific ST changes Comments: possible ST-depressions in the inferior leads noted. Procedures - INTUBATION Airway Evaluation: Obese, Large/Loose Teeth Intubation Method: orotracheal Equipment: ETT, Glidescope Tube Size (cm): 7.5 Pretreated with 100% Oxygen?: Yes Breath Sounds after Intubation: equal ETT Primary Tube Confirmation: Capnometry CO2 Change, Direct Visualization, Tube placement verified on XRAY Intubation Complications: no complications Vent Settings: See Respiratory Therapy Notes Procedure Comment: No complications with intubation. Departure - Departure Date of Disposition Decision: 07/19/19 Time of Disposition Decision: 20:10 DIAGNOSIS: NSTEMI (non-ST elevated myocardial infarction) Acute respiratory failure Qualifiers: Respiratory failure complication: hypoxia Qualified Code(s): J96.01 - Acute respiratory failure with hypoxia CHF exacerbation Qualifiers: Heart failure type: unspecified Qualified Code(s): I50.9 - Heart failure, unspecified Disposition: ADMITTED INPATIENT 09 Certified Medical Emergency: Emergent Condition: Serious - Critical Care Note This patient required my direct & personal management of CC.: Yes Total Time (mins): 30 Critical Care Statement: This patient required my direct personal management to treat or rule out processes, the absence of which, could potentiallly result in sudden, clinically significant life or limb threatening deterioration. Comments: Patient required intubation and sedation do to acute respiratory failure. Attestation - Physician/ MANDO Attestation Patient care was provided by Advanced Practice Provider:: No The physician spent face to face time with patient:: Yes Advanced Practice Provider documentation review:: Supervising physician onsite and consulted in the evaluation and care of this patient. The physician did have a face to face encounter with the patient.
--- NOTE | 2019-07-19 18:27 | Diag Imaging Result Doc PS360 ---
CHEST-1 VIEW - 07/19/2019 INDICATION: sob COMPARISON: 07/09/2019 FINDINGS: There is an endotracheal tube in good position at T4-T5. There is cardiomegaly and pulmonary vascular congestion. There is worsening in the coarse heterogeneous infiltrates bilaterally. No pneumothorax or significant pleural effusion. IMPRESSION: Good endotracheal tube placement. Worsening coarse infiltrates bilaterally. Cardiomegaly. Electronically signed by Wan Eddy 07/19/2019 6:24 PM
[2019-07-19] MEDS ORDERED: DIPRIVAN 1% 1,000 MG/100 ML BOTTLE ONE (18:54)
[2019-07-19] MEDS ORDERED: AMIDATE IV ONE (18:55)
[2019-07-19] MEDS ORDERED: QUELICIN IV ONE (18:56)
[2019-07-19] MEDS: DIPRIVAN 1% 1,000 MG/100 ML BOTTLE IV SCH ×2 (18:57→22:06)
[2019-07-19 19:00] LABS: BASO# 0.12 X1000 (0.0-0.2); BASO% 1.1 % (0.0-0.8); EOS# 0.04 X1000 (0.0-0.7); EOS% 0.4 % (0.0-10.0); HEMATOCRIT 38.6 % (37.0-47.0); HEMOGLOBIN 10.5 g/dL (12.0-16.0); IMM GRAN# 0.04 X1000 (0.0-0.04); IMM GRAN% 0.4 % (0.0-0.5); LYMPH# 1.59 X1000 (1.2-3.4); LYMPH% 13.9 % (20.5-51.1); MCH 22.4 PG (27-31); MCHC 27.2 g/dL (33-37); MCV 82.3 FL (81-99); MONO# 0.89 X1000 (0.11-0.59); MONO% 7.8 % (1.7-9.3); MPV 12.3 FL (7.4-10.4); NEUT# 8.72 X1000 (1.4-6.5); NEUT% 76.4 % (42.2-75.2); PLT 280 X1000 (130-400); RBC 4.69 XMIL (4.2-5.4)
[2019-07-19 19:02] LABS: ALLEN TEST YES; BE 6.3 mmoll (-3.0-3.0); BLOOD TYPE ARTERIAL; HCO3-(ACT) 29.9 mmoll (20.0-26.0); METHB 0.7 % (0.0-1.5); O2(CT) 14.4 mL/dL (15.0-23.0); PO2(98.6) 283 mmHg (60-100); SAMPLE BLOOD; SAO2 100.6 % (95.0-100.0); SRATE 15 BPM; TVOL 500 mL; pH(98.6) 7.33 (7.35-7.45)
[2019-07-19 19:05] LABS: INR 1.87; PROTIME 21.9 Seconds (11.0-16.0)
[2019-07-19 19:06] LABS: PTT 33.2 Seconds (22.3-41.8)
[2019-07-19 19:07] LABS: PCO2(98.6) 64 mmHg (35-45)
[2019-07-19 19:08] LABS: MODALITY VENTILATOR
[2019-07-19 19:13] LABS: ALBUMIN 3.9 g/dL (3.5-5.0); CALCIUM 8.2 mg/dL (8.8-10.2); POTASSIUM 4.6 mmol/L (3.5-5.1); TOTAL BILIRUBIN 0.94 mg/dL (0.20-1.00); TOTAL PROTEIN 7.7 g/dL (6.3-8.3)
[2019-07-19] MEDS ORDERED: VANCOMYCIN 1 GM/NS 1 GM/250 ML IVPB IV ONE (19:30)
[2019-07-19] MEDS ORDERED: ZOSYN 4.5 GM in NS 100 ML IV SCH (19:30)
[2019-07-19] MEDS ORDERED: LOVENOX 1 MG/KG SUBQ ONE (20:01)
[2019-07-19] MEDS ORDERED: LOVENOX SUBQ ONE (20:30)
[2019-07-19] MEDS ORDERED: ZITHROMAX 500 MG/NS 500 MG/250 ML IVPB IV SCH (21:00)
[2019-07-19] MEDS ORDERED: LOVENOX SUBQ SCH (21:00)
[2019-07-19] MEDS ORDERED: VANCOMYCIN IV PER PHARMACY MISC SCH (21:00)
[2019-07-19] MEDS ORDERED: ROCEPHIN 1 GM in NS 50 ML IV SCH (21:00)
[2019-07-19 21:02] LABS: ALLEN TEST YES; BE 12.1 mmoll (-3.0-3.0); BLOOD TYPE ARTERIAL; HCO3-(ACT) 34.4 mmoll (20.0-26.0); METHB 1.1 % (0.0-1.5); O2(CT) 12.7 mL/dL (15.0-23.0); O2HB 95.7 % (95.0-99.0); PO2(98.6) 136 mmHg (60-100); SAMPLE BLOOD; SAO2 99.6 % (95.0-100.0); SRATE 15 BPM; THB 9.2 g/dL (11.5-17.4); TVOL 500 mL; pH(98.6) 7.36 (7.35-7.45)
[2019-07-19 21:04] LABS: MODALITY VENTILATOR
[2019-07-19 21:05] LABS: PCO2(98.6) 70 mmHg (35-45)
[2019-07-19] MEDS: PROTONIX IV SCH (22:11)
[2019-07-19] MEDS: SODIUM CHLORIDE 0.9% INJ SCH (22:11)
[2019-07-19] MEDS: SOLU-MEDROL IV SCH (22:11)
[2019-07-19] MEDS ORDERED: VANCOMYCIN 850 MG in NS 250 ML IV ONE (23:00)
[2019-07-19] MEDS: LASIX IV SCH (23:21)
[2019-07-19] MEDS: DUONEB (A & A) INH SCH (23:36)
[2019-07-20] MEDS: ZOSYN 3.375 GM in NS 50 ML IV SCH ×2 (00:30→06:27)
[2019-07-20] MEDS: DIPRIVAN 1% 1,000 MG/100 ML BOTTLE IV SCH ×8 (00:31→23:15)
[2019-07-20] MEDS: DUONEB (A & A) INH SCH ×6 (03:20→23:30)
[2019-07-20] MEDS: SOLU-MEDROL IV SCH ×3 (04:14→20:32)
[2019-07-20 04:53] LABS: ALLEN TEST YES; BLOOD TYPE ARTERIAL; HCO3-(ACT) 34.3 mmoll (20.0-26.0); METHB 0.6 % (0.0-1.5); MODALITY VENTILATOR; O2HB 95.4 % (95.0-99.0); PCO2(98.6) 43 mmHg (35-45); PO2(98.6) 74 mmHg (60-100); SAMPLE BLOOD; SAO2 98.1 % (95.0-100.0); SRATE 18 BPM; THB 9.6 g/dL (11.5-17.4); TVOL 500 mL; pH(98.6) 7.53 (7.35-7.45)
[2019-07-20] MEDS: HUMULIN R SUBQ SCH ×3 (06:26→15:03)
--- NOTE | 2019-07-20 07:35 | Diag Imaging Result Doc PS360 ---
EXAM: CHEST-1 VIEW 07/20/2019 HISTORY: pneumonia TECHNIQUE: AP portable erect at 0535 COMMENT: There is an endotracheal tube with its tip approximately 3 cm above the noah. There is interstitial pulmonary edema. This may be slightly improved compared to 07/19/2019. It is certainly worse than on 07/09/2019 however. IMPRESSION: Pulmonary edema. The possibility of pneumonia cannot be excluded. Electronically signed by Rubén Leahy 07/20/2019 7:33 AM
--- NOTE | 2019-07-20 07:53 | HISTORY AND PHYSICAL ---
CHIEF COMPLAINT: Shortness of breath. HISTORY OF PRESENT ILLNESS: Ms. Stephanie Gregory is a 58-year-old female who is well known to our service. She does have a history of COPD as well as a congestive heart failure. She did experience shortness of breath and was brought to the hospital by EMS. The patient was noted to have been unable to tolerate BiPAP en route to the hospital. When she got to the ER, the patient could talk and respond but was lethargic and was getting oxygen via bag mask ventilation. The patient was subsequently intubated and placed on mechanical ventilation. The patient's chest x- ray showed evidence of worsening coarse infiltrates bilaterally as well as evidence of cardiomegaly. Arterial blood gas was 7.36/70/136/99.6%. The patient's troponin level was high at 155. ProBNP level was 4225. The patient admitted to the ICU for further management. PAST MEDICAL HISTORY: COPD, congestive heart failure, hypertension, atrial fibrillation, chronic opiate dependence. PAST SURGICAL HISTORY: Cholecystectomy, carotid endarterectomy as well as renal stent. ALLERGIES: Patient is allergic to levofloxacin as well as NSAIDs. SOCIAL HISTORY: The patient is a former smoker with no history of alcohol or illicit drug use. FAMILY HISTORY: Positive for coronary artery disease. MEDICATIONS: Include the following. 1. Plavix 75 mg p.o. once a day. 2. Pantoprazole 40 mg p.o. daily. 3. Ventolin HFA 2 puffs every 6 hours p.r.n. 4. Lasix 120 mg p.o. daily. 5. DuoNeb 3 mL every 4 hours p.r.n. 6. Warfarin 5 mg p.o. daily. 7. Coreg 12.5 mg p.o. q.p.m. 8. Tizanidine 4 mg p.o. twice a day p.r.n. 9. Warfarin 2.5 mg p.o. at bedtime. 10. [place] 5 every 12 hours p.r.n. 11. Carvedilol 20 mg p.o. q.a.m. 12. Clonazepam 0.5 g p.o. t.i.d. REVIEW OF SYSTEMS: Could not be obtained from the patient as she is currently intubated as well as placed on mechanical ventilation. PHYSICAL EXAMINATION: VITAL SIGNS: Temperature is 99.3 degrees, pulse 89, respirations 22, blood pressure 106/65, oxygen saturation 99%. HEENT: Atraumatic, normocephalic. She is anicteric. Pupils are equal, poorly reactive to light. She does have an ET tube in place. NECK: No lymphadenopathy or thyromegaly. CARDIOVASCULAR: S1, S2. RESPIRATORY SYSTEM: Has evidence of good entry bilaterally. ABDOMEN: Soft, nontender. No masses felt. EXTREMITIES: No evidence of significant edema. CENTRAL NERVOUS SYSTEM: The patient is currently intubated. However, no obvious focal deficits noted. LABORATORY DATA: WBC is 11.4, hematocrit 38.6 with a platelet count of 280,000. INR is 1.87. ABG 7.36/70/136/99.6. Chemistry: Sodium 142, potassium 4.6, chloride is 93, bicarb 32, BUN is 18, creatinine is 1.0. AST is 27, ALT 18, alkaline phosphatase 119. Troponin 155. ProBNP is 4225. IMAGING: Chest x-ray shows good endotracheal tube placement with worsening coarse infiltrates bilaterally. ASSESSMENT AND PLAN: 1. Acute hypercapnic respiratory failure. We will continue ventilator support. Treat primary lung conditions including pneumonia, chronic obstructive pulmonary disease as well as pulmonary edema. The patient is being sedated with propofol. Pulmonary team consulted. 2. Acute systolic congestive heart failure. Monitor intakes and outputs, as well as daily weights. Maintain patient on diuretics. 3. Paroxysmal atrial fibrillation. Maintain patient on a rate-controlling agent as well as anticoagulation. Check thyroid function test. 4. Elevated troponin. Rule out non ST elevation myocardial infarction. Maintain patient on aspirin and beta jaime as well as anticoagulation. 5. Healthcare-associated pneumonia. Obtain sputum and blood cultures as well as maintain patient on empiric antibiotics. 6. Chronic obstructive pulmonary disease exacerbation. Maintain patient on nebulized bronchodilators, steroids as well as antibiotics. 7. Deep vein thrombosis prophylaxis. Patient is on Lovenox. 8. Gastrointestinal prophylaxis. Proton pump inhibitor. cc: Prinec Michaels MD
--- NOTE | 2019-07-20 07:53 | EKG Report ---
Test Performed on : 07/19/2019 7:43:06 PM Test Reason : INTUBATION/SOB Blood Pressure : / mmHG Vent. Rate : 091 BPM Atrial Rate : 091 BPM P-R Int : 136 ms QRS Dur : 100 ms QT Int : 380 ms P-R-T Axes : 038 089 024 degrees QTc Int : 467 ms Normal sinus rhythm. Possible Left atrial enlargement Lateral infarct (cited on or before 13-AUG-2018) Cannot rule out Inferior infarct (cited on or before 12-AUG-2018) Abnormal ECG When compared with ECG of 09-JUL-2019 19:57, (Unconfirmed) T wave inversion less evident in Inferior leads Unconfirmed Result
[2019-07-20] MEDS: LOVENOX SUBQ SCH ×2 (07:58→20:33)
[2019-07-20] MEDS: LASIX IV SCH ×2 (07:59→20:32)
[2019-07-20] MEDS: COREG PO SCH ×3 (08:00→20:33)
[2019-07-20] MEDS: PLAVIX PO SCH (08:01)
[2019-07-20] MEDS: MAXIPIME 2 GM/NS 2 GM/100 ML IVPB IV SCH ×2 (08:04→15:09)
--- NOTE | 2019-07-20 09:25 | PROVIDER PROGRESS NOTE ---
Progress Note Pulmonary additional note: Full consult to follow. I have seen and examined the case, reviewed the EMR, labs, latest images and other medical teams notes. Also reviewed the JUNIOR ASSISTANT MANAGER notes and signed necessary form(s). I have noted changes in condition if any from yesterday and did orders. Please see also signed progress sheet. She is known to our service with advanced COPD and recurrent admissions. Prognosis: Not great on the long run given advanced COPD, recurrent admissions and co-morbidities. I reviewed latest notes from Dr. Michaels. I called Mr. Gregory and updated him and discussed with her RN, Praveen. Respiratory failure, COPD and Pneumonia. Pulmonary edema and on AC sedated with propofol. I asked research staff member about condition changes and if they have any needs in regard to today conditions. I spent 35 minutes in this process.
--- NOTE | 2019-07-20 10:13 | PROVIDER PROGRESS NOTE ---
Progress Note Patient has been seen and examined. A full dictation to follow. See additional notes by Dr. Rivas.
--- NOTE | 2019-07-20 12:17 | INFECTIOUS DISEASE CONSULT REP ---
DATE: 07/20/2019 CONCLUSION: The patient is intubated and unable to provide any history. There is no family member present and there is no history and physical on the chart. The information I did get was mainly from the emergency room record. The patient, according to the emergency room record complained of shortness of breath. The patient has chronic dyspnea as well. Also, the patient has congestive heart failure. She was brought in with EMS and is now in the intensive care unit. Based on her chest x-ray finding, it appears that she has a bilateral pneumonia. RECOMMENDATIONS: I agree with using vancomycin. I have discontinued Zosyn and placed the patient on cefepime. I have also ordered an influenza screen. There is no further history on the patient. LABORATORY STUDIES AND X-RAY: [place] [address], hemoglobin 10.5 and platelet count 280,000. Creatinine is 1, GFR is 57. Blood gases show a pH of 7.53, a PO2 of 74, and a pCO2 of 43. Liver function studies were normal except for an alkaline phosphatase of 119. Blood cultures are pending. Chest x-ray shows bilateral infiltrates. A sputum culture was ordered but has not been collected. ALLERGIES: The patient has an allergy to Levaquin manifested by a rash. HOME MEDICATIONS: Include Plavix, Protonix, albuterol inhaler, furosemide, Coumadin, Coreg, Zanaflex, hydrocodone, carvedilol, and Klonopin. REVIEW OF SYSTEMS: Unable to be obtained. PHYSICAL EXAMINATION: Vital Signs: Temperature is 101 degrees, pulse 75, respirations 18, blood pressure is 123/73. The patient is 5 feet 3 inches tall, weighs 178 pounds. General: This is a middle-aged obese female. She is intubated and she has a decreased level of consciousness. Head, eyes, ears, nose and throat: She has an orotracheal tube in place. There is no drainage from the nose or ears. I could not see into her mouth. Neck: No stiffness. Lungs: Clear to auscultation. Cardiovascular: Heart rate is regular. Abdomen: Soft and nontender. Integument: No rash noted. Neurologic: The patient has a decreased level of consciousness. She did not respond to verbal stimuli. There was no tremor. Integument: No rash noted. Thank you for the consultation. cc: MD Prince Forte MD [facility]
--- NOTE | 2019-07-20 12:43 | Diag Imaging Result Doc PS360 ---
CHEST-PORTABLE - 07/20/2019 12:25 PM INDICATION: OGT placement COMPARISON: 5:35 AM FINDINGS: Stable endotracheal tube in good position. There is an orogastric tube in good position in the distal stomach. IMPRESSION: No complications. Electronically signed by Wan Eddy 07/20/2019 12:40 PM
--- NOTE | 2019-07-20 12:53 | CARDIOLOGY CONSULTATION ---
DATE: 07/20/2019 CHIEF COMPLAINT: Apparently, shortness of breath. The patient was intubated in the field. HISTORY OF PRESENT ILLNESS: Ms. Gregory is a 58-year-old, white female with a history of severe COPD, congestive heart failure, coronary artery disease, atrial fibrillation. She has had frequent hospitalizations, at least monthly for a year, with hospitalizations at other facilities as well. All history is obtained via chart review. Patient was brought in by EMS. Apparently was not responsive at home to her . Initially, they attempted BiPAP but ultimately she was intubated in the field. She currently is on the ventilator and sedated. Not responding to physical or verbal stimuli. PAST MEDICAL HISTORY: Significant for: 1. Coronary artery disease. Last stress test was performed in June of 2019. It demonstrated large, moderate to severe intensity, fixed defects in the basal mid to apical anterior wall and apex which is fixed and associated with apical hypokinesis. Also, a large, moderate intensity defect in the lateral wall, also fixed. There was no ischemia. The ejection fraction on that study was 46%. Last cardiac catheterization was in 2015, demonstrating a short and normal left main. The LAD had mild to moderate calcification of the proximal and mid vessel. Mild diffuse irregularities. The first diagonal had moderate calcifications as well as a 60% proximal lesion. Circumflex was calcified in the proximal to mid segment with 20-30% disease. A small first obtuse marginal was occluded. This was an old finding. The right coronary artery is small and nondominant with a high-grade proximal lesion. The ejection fraction on that study was 40-50%. 2. Systolic heart failure with ejection fractions in the 45% range. 3. Moderate mitral regurgitation, moderate mitral stenosis. 4. Paroxysmal atrial fibrillation, maintained on warfarin. 5. Hypertension. 6. Peripheral vascular disease with carotid endarterectomy and iliac stenting. 7. CVA. 8. COPD. SOCIAL HISTORY: Former smoker. No current alcohol or illicit drug use. FAMILY HISTORY: Unable to be obtained secondary to patient's current intubated status. REVIEW OF SYSTEMS: Unable to be obtained secondary to patient's current intubated status. PHYSICAL EXAMINATION: She was febrile yesterday as high as 100.6, heart rate 72, blood pressure 117/64, O2 saturation 93%. General: Ill-appearing. Currently on the ventilator. HEENT: Oropharynx is moist. Poor dentition. Eye examination shows pink conjunctivae and white sclerae. Neck: Examination shows no obvious thyromegaly or thyroid tenderness. Cardiovascular: She sounds to be in a regular rate and rhythm. She has no obvious murmurs. She has no S3. She has trace to 1+ bilateral lower extremity edema. Chest Examination: Has coarse expiratory wheezes heard diffusely. She has no increased work of breathing. She is on the ventilator. Abdomen: Soft, nontender. Skin Examination: Warm and dry throughout. Neurological and psychiatric examinations are not able to be performed secondary to the patient's intubated and sedated status. PERTINENT DATA: EKG shows sinus rhythm, no ischemic changes. Suggestion of inferior Q-waves as well as lateral Q-waves. Chest x-ray demonstrates pulmonary edema, possible pneumonia. Lab data demonstrates a white count yesterday of 11.4, hematocrit 38, platelet count was 280,000. Sodium is 142, potassium is 4.6, BUN 18, creatinine is 1. Troponins have ranged between 161 and 146. ProBNP is 4225. ASSESSMENT: Ms. Gregory is a 58-year-old female who presents with respiratory failure. PLAN: At this point, she is being diuresed. Echocardiogram is pending. Considering her frequent hospitalizations for pulmonary edema, I would recommend cardiac catheterization prior to discharge. Her recent nuclear scan demonstrated fixed defects. We will try to resume home medications in the near future, when we are able to. An OG-tube is pending insertion. She is diuresing on 40 IV b.i.d. of Lasix. She is on weight-based Lovenox. cc: MD Prince Mejia MD
--- NOTE | 2019-07-20 13:09 | PROGRESS NOTE ---
DATE: 07/20/2019 SUBJECTIVE: Ms. Gregory, a 58-year-old, came in with shortness of breath, well known to our service, history of COPD and congestive heart failure. She did experience some shortness of breath and was brought to the hospital by EMS. The patient noted to have been unable to tolerate BiPAP en route to the hospital. When she got to the ER, the patient could talk and respond and was lethargic, was getting oxygen via bag mask. The patient was subsequently intubated, placed on mechanical ventilator. PAST MEDICAL HISTORY: Congestive heart failure, COPD, hypertension, atrial fibrillation, chronic opiate dependence. SURGICAL HISTORY: Status post cholecystectomy, status post carotid endarterectomy, as well as renal stent. SOCIAL HISTORY: She lived at home with spouse. 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 OBJECTIVE: Vital signs: The patient remains sedated on ventilator. ET tube is secure. Tolerating 60% FiO2 and O2 saturations were 96%. Heart rate sustained in the 70s. Diprivan infusing at 65 mcg/kg per minute per protocol. Her temperature was 97.5 degrees, pulse 80, respirations 18, blood pressure 130/74. HEENT: Pupils are equal and round. Neck: No distended neck veins. Lungs: Clear in all lung acosta. Cardiovascular: Regular rhythm and rate without murmur or S3. Abdomen: Soft. Extremities: I do not appreciate more than trace edema. Urine output: Was 3200 mL. ASSESSMENT AND PLAN: 1. Acute hypercapnic respiratory failure. Continue ventilatory support. Treat primary lung condition including pneumonia, chronic obstructive pulmonary disease, as well as pulmonary edema. She is sedated with propofol. Continue bronchodilators and antibiotics. 2. Acute systolic congestive heart failure. We will try and diurese with diuretics. 3. Paroxysmal atrial fibrillation. Maintain rate control, she is on anticoagulation. We will check a thyroid function. 4. Elevated troponin. We are going to rule out non ST-elevation myocardial infarction, but this may also be supply/demand mismatch. Continue aspirin and beta jaime and anticoagulation. 5. Healthcare-associated pneumonia. Continue broad-spectrum antibiotics. Await cultures. 6. Chronic obstructive pulmonary disease exacerbation. Continue bronchodilators and steroid inhalers and antibiotics, supplementary O2. She is on the ventilator, ventilator dependent. 7. Deep venous prophylaxis in place. 8. Gastrointestinal prophylaxis in place. REVIEW OF HER CURRENT ORDERS: She is on Lipitor 40 mg at bedtime, DuoNeb 3 mL inhalation q.4 hours, Coreg 25 mg q.a.m., Coreg 12.5 mg p.o. q.p.m., Plavix 75 mg daily, Lovenox 80 mg subcutaneously q.12, Lasix 40 mg IV b.i.d., cefepime 2 g IV q.8, methylprednisone 30 mg IV q.8 hours, Protonix 40 mg IV q.24 hours, vancomycin 1450 mg IV q.24 hours. cc: MD Prince Koehler MD
[2019-07-20 13:40] LABS: AGAP 15; BUN 17 mg/dL (8-22); CALCIUM 8.3 mg/dL (8.8-10.2); CHLORIDE 99 mmol/L (98-107); COSMO 289; CREATININE 0.9 mg/dL (0.5-0.9); ESTIMATED GFR > 60; GLUCOSE 135 mg/dL (70-104); MAGNESIUM 1.5 mg/dL (1.5-2.7); POTASSIUM 3.6 mmol/L (3.5-5.1); SODIUM 143 mmol/L (136-145); TCO2 29 mmol/L (25-35)
[2019-07-20] MEDS: SODIUM CHLORIDE 0.9% INJ SCH (20:32)
[2019-07-20] MEDS: PROTONIX IV SCH (20:32)
[2019-07-20] MEDS: LIPITOR PO SCH (20:33)
--- NOTE | 2019-07-20 22:09 | CONSULTATION ---
DATE OF CONSULTATION: 07/20/2019 REQUESTING PROVIDER: Prince Michaels MD REASON FOR CONSULTATION: Ventilator management. HISTORY OF PRESENT ILLNESS: This is a 58-year-old female with a complicated medical history including COPD, ongoing tobacco abuse, chronic hypoxic respiratory failure, chronic hypercapnic respiratory failure, systolic congestive heart failure, obstructive sleep apnea, coronary artery disease, moderate mitral regurgitation, paroxysmal atrial fibrillation, diabetes mellitus type 2, cerebrovascular accident, hypertension, dyslipidemia, gastroesophageal reflux disease, anxiety and chronic pain. She did have multiple admissions last year with recurrent pneumonia and recurrent intubation. She apparently had been admitted for 4 or 5 days in [facility] recently with congestive heart failure exacerbation. She was discharged home yesterday early afternoon. Several hours later the patient developed worsening shortness of breath and eventually panic attack. She was sent to the ER via EMS. In the ER the patient was not able to tolerate BiPAP. She eventually required intubation. Initial workup revealed congestive heart failure exacerbation, pulmonary edema and possible pneumonia with troponin T elevation. The patient has been admitted to the ICU for further evaluation and management. The patient currently is lying in bed, intubated and sedated with Diprivan drip. The patient's is at the bedside. The patient's reported that the patient has severe pedal edema recently, paroxysmal nocturnal dyspnea and orthopnea. The patient has been on home oxygen at 4 L but she still keeps complaining that she cannot breathe. PAST MEDICAL AND SURGICAL HISTORY: 1. COPD with ongoing tobacco abuse. 2. Chronic hypoxic hypercapnic respiratory failure, on home oxygen at 4 L continuously recently. 3. Systolic congestive heart failure. 4. Coronary artery disease. Stress test on 06/21/2019 showed previous infarction in anteroapical region and lateral wall, left ventricle; left ventricular ejection fraction of 46%; severe apical hypokinesis. 5. Obstructive sleep apnea, not compliant with home CPAP therapy as the patient cannot tolerate it. 6. Moderate mitral regurgitation. 7. Paroxysmal atrial fibrillation, on warfarin at home. 8. Diabetes mellitus type 2. 9. History of cerebrovascular accident with residual left-sided weakness. 10. Hypertension. 11. Dyslipidemia. 12. Gastroesophageal reflux disease. 13. Peripheral vascular disease, status post carotid endarterectomy and iliac stenting. 14. Status post cholecystectomy. 15. Status post appendectomy. 16. Anxiety. 17. Chronic back pain. 18. Multiple hospital admission last year with recurrent pneumonia and recurrent intubation. SOCIAL HISTORY: The patient is and lives at home. It is unknown about the patient's current smoking status, but apparently the patient's is a heavy smoker and smokes around the house at times. The patient also has an indoor dog as a pet. She drinks alcohol at times. She has no illicit drug use. ALLERGIES: Levofloxacin and NSAIDs. REVIEW OF SYSTEMS: Unable to be obtained. PHYSICAL EXAMINATION: Vital Signs: Temperature 97.7, blood pressure 117/64, pulse 71, respiratory rate 18, oxygen saturation 93% on AC mechanical ventilator, with spontaneous rate 18, FIO2 of 50%, tidal volume 500 and PEEP 5. General: Chronically ill appearing. Appears pale. Lying in bed, intubated with no acute distress noted. at the bedside. HEENT: Atraumatic, normocephalic. Trachea midline. ET tube in place. Mucosa pink and slightly dry. Respiratory: Mechanically ventilated. Symmetrical excursion. Auscultation revealed diminished breathing sounds bilaterally. Rhonchi bilaterally and only inspiratory crackles bibasilarly. Cardiovascular: Regular rate and rhythm. Gastrointestinal: Soft, nontender. Obese. Normoactive bowel sounds in all 4 quadrants. Extremities: Bilateral lower extremity pitting edema 2 to 3+. Bilateral upper extremity trace edema. Dorsalis pedis diminished bilaterally. Neurologic: Sedated. LABORATORY DATA: ABG pH 7.53, pCO2 is 43, pO2 is 74, HCO3 is 34.3, base excess 12.0, oxyhemoglobin 95.4%. Sodium 143, potassium 3.6, chloride 99, carbon dioxide 29, BUN 17, creatinine 0.9, glucose 135, calcium 8.3. Troponin T high sensitivity 117. DIAGNOSTIC DATA: Chest x-ray this morning showed interstitial pulmonary edema with the possibility of pneumonia. ASSESSMENT: This is a 58-year-old female with complicated medical history including chronic obstructive pulmonary disease, tobacco abuse, congestive heart failure, chronic hypoxic hypercapnic respiratory failure, obstructive sleep apnea, coronary artery disease, moderate mitral regurgitation, paroxysmal atrial fibrillation, diabetes mellitus type 2, cerebrovascular accident, hypertension, dyslipidemia, gastroesophageal reflux disease, peripheral vascular disease, anxiety and chronic back pain. She apparently had multiple hospital admissions last year with recurrent pneumonia and recurrent intubation. She has been admitted yesterday with [id number] respiratory failure, chronic obstructive pulmonary disease, pneumonia and congestive heart failure exacerbation. 1. [id number] hypoxic hypercapnic respiratory failure. 2. Congestive heart failure exacerbation with pulmonary edema, elevated proBNP and elevated troponin T. 3. Pneumonia. 4. Chronic obstructive pulmonary disease. 5. Obstructive sleep apnea, noncompliant. PLAN: 1. Continue AC mechanical ventilator. We will start weaning trials when appropriate. 2. Continue antibiotics per Dr. Gary. IV Solu-Medrol and bronchodilators. 3. Follow up with ABG, blood cultures, sputum culture and chest x-ray. 4. Smoking cessation education when appropriate. 5. Continue GI and DVT prophylaxis. 6. Further recommendation pending hospital course. Thank you for the courtesy of this consult! Dictated by RALPH Cook for Ariela Rivas MD cc: RALPH Cook MD Clement Okinedo, MD [facility]
[2019-07-20] MEDS: VANCOMYCIN 1,450 MG in NS 250 ML IV SCH (23:16)
[2019-07-21] MEDS: HUMULIN R SUBQ SCH ×5 (01:32→21:21)
[2019-07-21] MEDS: MAXIPIME 2 GM/NS 2 GM/100 ML IVPB IV SCH ×3 (01:33→17:11)
[2019-07-21] MEDS: DIPRIVAN 1% 1,000 MG/100 ML BOTTLE IV SCH ×2 (01:33→05:37)
[2019-07-21] MEDS: DUONEB (A & A) INH SCH ×6 (03:18→23:38)
[2019-07-21] MEDS: SOLU-MEDROL IV SCH ×3 (04:58→20:11)
[2019-07-21 05:03] LABS: ALLEN TEST YES; BE 8.3 mmoll (-3.0-3.0); BLOOD TYPE ARTERIAL; HCO3-(ACT) 31.4 mmoll (20.0-26.0); METHB 0.8 % (0.0-1.5); O2(CT) 15.3 mL/dL (15.0-23.0); O2HB 96.1 % (95.0-99.0); PCO2(98.6) 44 mmHg (35-45); PO2(98.6) 94 mmHg (60-100); SAMPLE BLOOD; SAO2 98.5 % (95.0-100.0); SRATE 12 BPM; THB 11.2 g/dL (11.5-17.4); TVOL 500 mL; pH(98.6) 7.48 (7.35-7.45)
[2019-07-21 05:04] LABS: MODALITY VENTILATOR
[2019-07-21 06:48] LABS: HEMATOCRIT 34.4 % (37.0-47.0); HEMOGLOBIN 9.6 g/dL (12.0-16.0); IMM GRAN# 0.02 X1000 (0.0-0.04); IMM GRAN% 0.2 % (0.0-0.5); LYMPH# 0.39 X1000 (1.2-3.4); LYMPH% 4.8 % (20.5-51.1); MCH 22.5 PG (27-31); MCHC 27.9 g/dL (33-37); MCV 80.6 FL (81-99); MONO# 0.43 X1000 (0.11-0.59); MONO% 5.2 % (1.7-9.3); NEUT# 7.37 X1000 (1.4-6.5); NEUT% 89.8 % (42.2-75.2); PLT 208 X1000 (130-400); RBC 4.27 XMIL (4.2-5.4); WBC 8.21 X1000 (4.8-10.8)
--- NOTE | 2019-07-21 07:19 | Diag Imaging Result Doc PS360 ---
EXAM: CHEST-1 VIEW INDICATION: ventilator protocol TECHNIQUE: One view COMPARISON: 07/20/2019 FINDINGS: Support tubes and lines are in stable positions. There has been an interval increase in opacity at the left lower lung zone concerning for developing pneumonia. No other new consolidation is identified. Cardiac silhouette is identified. IMPRESSION: Development of airspace opacity at the left lower lung zone concerning for developing pneumonia. Electronically signed by Jose Escoto 07/21/2019 7:17 AM
[2019-07-21 07:32] LABS: CREATININE 1.2 mg/dL (0.5-0.9)
[2019-07-21] MEDS: LOVENOX SUBQ SCH ×2 (08:02→20:11)
[2019-07-21 08:03] LABS: LYMPHS 4 % (21-51); MONO 3 % (1-9); SEGS 93 % (42-75)
[2019-07-21] MEDS: LASIX IV SCH ×2 (09:03→20:11)
[2019-07-21] MEDS: COREG PO SCH (09:03)
[2019-07-21] MEDS: PLAVIX PO SCH (09:03)
--- NOTE | 2019-07-21 09:56 | PROVIDER PROGRESS NOTE ---
Progress Note Pulmonary additional note: I have seen and examined the case, reviewed the EMR, labs, latest images and other medical teams notes. Also reviewed the [employer] notes and signed necessary form(s). I have noted changes in condition if any from yesterday and did orders. Please see also signed progress sheet. Today she remains on AC but with oxygentation improvement. Hemodynamically stable. Prognosis: Not great on the long run given advanced COPD, recurrent admissions and co-morbidities. I reviewed latest notes from Dr. Cintron. Will attempt weaning today. Respiratory failure, COPD and Pneumonia. Pulmonary edema and on AC sedated with propofol. Elevated troponins and Dr. Cintron is ruling out [place] and I reviewed Dr. Hoff's consult. I asked staff rn about condition changes and if they have any needs in regard to today conditions. I spent 31 minutes in this process. Addendum, she tolerated weaning trial and will extubate with Bipap PRN. Mild blood oozing from mouth and INR is being checked and hospitalist is aware. Discussed the case with the and answered his questions. Also discussed with charge nurse of unit, Steffany.
[2019-07-21] MEDS ORDERED: HALDOL IV PRN (10:24)
--- NOTE | 2019-07-21 10:36 | PROVIDER PROGRESS NOTE ---
Progress Note Dr. Rivas Progress Note/Pulmonary and or critical care We appreciated progress of care, Complications, change in diagnosis, and instructions to patient under direct supervision of Dr. Rivas. Subjective: We note the level of consciousness, bed (chair) position, family presence (if any), level of lethargy, feeling of symptoms, and changes from baseline condition/symptom. The patient is still intubated. She is on weaning trials with CPAP mode: FiO2 50% and PEEP 5. VSs stable. She blinks her eyes at times, but not following simple commands at this time. at the bedside. Objective: Vital Signs: We reviewed EMR current values for Pulse rate, Blood pressure, Pulse rate, respiratory rate and Pulse oximetry. Also noted other values and trends if present (e.g. I/O, CVP). Vital Signs 07/20/19 14:01 07/20/19 14:14 07/20/19 14:29 Temperature Pulse Rate 92 H 94 H 90 Respiratory Rate 13 13 13 Blood Pressure 119/71 121/72 119/72 O2 Sat by Pulse Oximetry 96 96 96 07/20/19 14:44 07/20/19 15:00 07/20/19 15:01 Temperature 97.2 F L Pulse Rate 90 92 H Respiratory Rate 13 15 Blood Pressure 121/70 120/70 O2 Sat by Pulse Oximetry 95 95 07/20/19 15:14 07/20/19 15:29 07/20/19 15:44 Temperature Pulse Rate 86 86 82 Respiratory Rate 13 12 12 Blood Pressure 120/72 109/63 108/64 O2 Sat by Pulse Oximetry 96 99 99 07/20/19 16:01 07/20/19 16:14 07/20/19 16:29 Temperature Pulse Rate 88 66 71 Respiratory Rate 13 12 12 Blood Pressure 111/68 103/56 103/64 O2 Sat by Pulse Oximetry 95 95 94 L 07/20/19 16:44 07/20/19 17:01 07/20/19 17:14 Temperature Pulse Rate 68 68 70 Respiratory Rate 13 13 14 Blood Pressure 94/54 96/53 97/55 O2 Sat by Pulse Oximetry 95 94 L 94 L 07/20/19 17:29 07/20/19 17:44 07/20/19 18:01 Temperature Pulse Rate 72 72 74 Respiratory Rate 13 14 16 Blood Pressure 97/55 104/59 102/57 O2 Sat by Pulse Oximetry 94 L 94 L 94 L 07/20/19 18:14 07/20/19 18:29 07/20/19 18:44 Temperature Pulse Rate 74 76 76 Respiratory Rate 15 16 15 Blood Pressure 96/61 99/62 107/61 O2 Sat by Pulse Oximetry 94 L 91 L 95 07/20/19 19:00 07/20/19 19:14 07/20/19 19:25 Temperature Pulse Rate 80 78 78 Respiratory Rate 17 17 12 Blood Pressure 108/64 105/57 O2 Sat by Pulse Oximetry 95 95 95 07/20/19 19:29 07/20/19 19:44 07/20/19 20:01 Temperature 99.1 F Pulse Rate 78 77 79 Respiratory Rate 16 12 15 Blood Pressure 106/58 105/61 106/61 O2 Sat by Pulse Oximetry 97 97 95 07/20/19 20:14 07/20/19 20:29 07/20/19 20:44 Temperature Pulse Rate 79 79 82 Respiratory Rate 16 15 17 Blood Pressure 104/63 105/61 108/64 O2 Sat by Pulse Oximetry 94 L 94 L 98 07/20/19 21:01 07/20/19 21:14 07/20/19 21:29 Temperature Pulse Rate 79 80 79 Respiratory Rate 18 17 16 Blood Pressure 105/66 105/66 106/67 O2 Sat by Pulse Oximetry 94 L 94 L 94 L 07/20/19 21:44 07/20/19 22:01 07/20/19 22:14 Temperature Pulse Rate 79 77 76 Respiratory Rate 14 14 18 Blood Pressure 105/65 101/61 107/65 O2 Sat by Pulse Oximetry 94 L 94 L 95 07/20/19 22:29 07/20/19 22:44 07/20/19 23:01 Temperature Pulse Rate 76 78 77 Respiratory Rate 17 18 15 Blood Pressure 105/65 120/72 107/67 O2 Sat by Pulse Oximetry 94 L 91 L 94 L 07/20/19 23:14 07/20/19 23:29 07/20/19 23:30 Temperature Pulse Rate 77 77 Respiratory Rate 18 18 Blood Pressure 105/63 115/70 O2 Sat by Pulse Oximetry 94 L 92 L 96 07/20/19 23:44 07/21/19 00:01 07/21/19 00:14 Temperature 98.8 F Pulse Rate 76 75 76 Respiratory Rate 16 18 17 Blood Pressure 108/68 113/65 113/73 O2 Sat by Pulse Oximetry 95 95 93 L 07/21/19 00:29 07/21/19 00:44 07/21/19 01:01 Temperature Pulse Rate 77 73 74 Respiratory Rate 18 17 17 Blood Pressure 113/67 107/66 108/67 O2 Sat by Pulse Oximetry 94 L 94 L 95 07/21/19 01:14 07/21/19 01:29 07/21/19 01:44 Temperature Pulse Rate 75 74 74 Respiratory Rate 16 16 18 Blood Pressure 121/70 114/67 105/74 O2 Sat by Pulse Oximetry 93 L 94 L 95 07/21/19 02:01 07/21/19 02:14 07/21/19 02:29 Temperature Pulse Rate 75 73 73 Respiratory Rate 14 17 15 Blood Pressure 116/68 110/69 116/66 O2 Sat by Pulse Oximetry 95 95 95 07/21/19 02:44 07/21/19 03:01 07/21/19 03:14 Temperature 97.7 F Pulse Rate 73 72 72 Respiratory Rate 15 14 13 Blood Pressure 105/66 104/66 110/65 O2 Sat by Pulse Oximetry 95 95 95 07/21/19 03:18 07/21/19 03:29 07/21/19 04:01 Temperature Pulse Rate 70 73 Respiratory Rate 12 15 Blood Pressure 108/64 106/73 O2 Sat by Pulse Oximetry 95 97 95 07/21/19 04:52 07/21/19 05:01 07/21/19 05:14 Temperature Pulse Rate 79 79 85 Respiratory Rate 17 16 16 Blood Pressure 123/76 128/81 133/82 O2 Sat by Pulse Oximetry 96 96 97 07/21/19 05:29 07/21/19 05:44 07/21/19 06:01 Temperature Pulse Rate 79 77 74 Respiratory Rate 21 16 20 Blood Pressure 128/76 124/75 115/66 O2 Sat by Pulse Oximetry 97 96 95 07/21/19 06:14 07/21/19 06:29 07/21/19 06:44 Temperature Pulse Rate 73 72 72 Respiratory Rate 20 20 18 Blood Pressure 110/63 109/65 108/64 O2 Sat by Pulse Oximetry 95 95 95 07/21/19 06:59 07/21/19 07:14 07/21/19 07:29 Temperature Pulse Rate 72 73 73 Respiratory Rate 17 17 18 Blood Pressure 110/68 113/67 112/65 O2 Sat by Pulse Oximetry 95 96 95 07/21/19 07:44 07/21/19 07:59 07/21/19 08:08 Temperature 97.0 F L Pulse Rate 73 73 73 Respiratory Rate 17 16 19 Blood Pressure 114/69 115/69 115/69 O2 Sat by Pulse Oximetry 96 96 95 07/21/19 08:14 07/21/19 08:29 07/21/19 08:31 Temperature Pulse Rate 75 72 73 Respiratory Rate 17 16 12 Blood Pressure 115/75 120/71 O2 Sat by Pulse Oximetry 96 98 95 07/21/19 08:44 07/21/19 08:59 07/21/19 09:14 Temperature Pulse Rate 72 74 74 Respiratory Rate 17 20 13 Blood Pressure 117/70 118/70 119/72 O2 Sat by Pulse Oximetry 98 95 97 07/21/19 09:29 07/21/19 09:44 07/21/19 09:59 Temperature Pulse Rate 74 75 74 Respiratory Rate 16 17 20 Blood Pressure 122/74 122/75 119/74 O2 Sat by Pulse Oximetry 95 95 95 07/21/19 10:14 07/21/19 10:30 07/21/19 10:44 Temperature Pulse Rate 71 86 Respiratory Rate 16 30 H Blood Pressure 122/74 139/87 150/90 O2 Sat by Pulse Oximetry 96 96 95 07/21/19 10:59 07/21/19 11:29 07/21/19 11:40 Temperature 97.5 F L Pulse Rate 88 88 89 Respiratory Rate 28 H 28 H 26 H Blood Pressure 144/93 149/93 149/93 O2 Sat by Pulse Oximetry 95 96 96 07/21/19 11:44 07/21/19 11:59 07/21/19 12:15 Temperature Pulse Rate 89 88 89 Respiratory Rate 26 H 21 23 Blood Pressure 139/98 148/98 149/84 O2 Sat by Pulse Oximetry 97 97 97 07/21/19 12:16 07/21/19 13:15 Temperature Pulse Rate 89 Respiratory Rate 22 Blood Pressure O2 Sat by Pulse Oximetry 97 94 L Intake & Output 07/20/19 07/21/19 07/21/19 19:59 07:59 19:59 Intake Total 420 / 1310 890 / 1310 Output Total 1000 / 1730 730 / 1730 Balance -580 / -420 160 / -420 Intake: Intake, IVPB 100 / 500 400 / 500 Intake, IV Diprivan 260 / 690 430 / 690 Intake, Tube Irrigant Amount 60 / 120 60 / 120 Output: Output, Urine Leary Amount 1000 / 1730 730 / 1730 Other: Number of Bowel Movements 0 Physical Examination: General: Intubated. Lying in bed with no acute distress noted. at the bedside. HEENT: Trachea midline. ETT in place. Mucus pink and moist. Chest: Even and unlabored. Symmetrical excursion. Auscultation reveals diminished breathing sounds b/l, ronchi and early inspiratory crackles bibasilarly. CVS: S1 S2. Abdomen: Soft. Obese. Normoactive bowel sounds in all 4 quadrants. Extremities: BLE pitting edema 2-3+ with RLE slightly worse than LLE. A small area of erythema with a small skin tear in the middle on left agosto anteriorly. BUE pitting edema 1+. Dorsalis pedis diminished b/l. Neuro: Sedated. Blinking eyes at times, but not following simple commands. Labs and Radiology: Reviewed available labs and radiology values available at time of EMR review. Laboratory Results 07/20/19 07/20/19 07/20/19 13:21 13:21 15:06 WBC RBC Hgb Hct MCV MCH MCHC RDW Std Deviation Plt Count MPV Immature Gran % (Auto) Neut % (Auto) Lymph % (Auto) [place] % (Auto) Eos % (Auto) Baso % (Auto) Immature Gran # (Auto) Neut # (Auto) Lymph # (Auto) [place] # (Auto) Eos # (Auto) Baso # (Auto) Segmented Neutrophils Lymphocytes Monocytes PT INR Specimen Type Sample Site pH pCO2 pO2 HCO3 Base Excess Oxyhemoglobin ABG O2 Sat (Calculated) ABG O2 Saturation ABG Carboxyhemoglobin ABG Methemoglobin Kirk Test A-a O2 Difference Total Hemoglobin Lactate Blood Gas Modality Vent Mode Spontaneous Rate FiO2 % Tidal Volume PEEP Pressure Support Sodium Potassium Chloride Carbon Dioxide Anion Gap BUN Creatinine Estimated GFR/1.73 m2 BUN/Creatinine Ratio Glucose POC Glucose 121 H Calculated Osmolality Calcium Creatine Kinase 34 Troponin T High Sens 117 H* TSH 07/20/19 07/21/19 07/21/19 20:54 04:55 05:00 WBC RBC Hgb Hct MCV MCH MCHC RDW Std Deviation Plt Count MPV Immature Gran % (Auto) Neut % (Auto) Lymph % (Auto) [place] % (Auto) Eos % (Auto) Baso % (Auto) Immature Gran # (Auto) Neut # (Auto) Lymph # (Auto) [place] # (Auto) Eos # (Auto) Baso # (Auto) Segmented Neutrophils Lymphocytes Monocytes PT INR Specimen Type ARTERIAL Sample Site R RADIAL pH 7.48 H pCO2 44 pO2 94 HCO3 31.4 H Base Excess 8.3 H Oxyhemoglobin 96.1 ABG O2 Sat (Calculated) 15.3 ABG O2 Saturation 98.5 ABG Carboxyhemoglobin 1.60 ABG Methemoglobin 0.8 Kirk Test YES A-a O2 Difference 208.0 Total Hemoglobin 11.2 L Lactate 1.90 Blood Gas Modality VENTILATOR Vent Mode A/C Spontaneous Rate 12 FiO2 % 50.0 Tidal Volume 500 PEEP 5.0 Pressure Support Sodium Potassium Chloride Carbon Dioxide Anion Gap BUN Creatinine Estimated GFR/1.73 m2 BUN/Creatinine Ratio Glucose POC Glucose 131 H Calculated Osmolality Calcium Creatine Kinase Troponin T High Sens TSH 1.43 07/21/19 07/21/19 07/21/19 05:50 05:50 06:10 WBC 8.21 RBC 4.27 Hgb 9.6 L Hct 34.4 L MCV 80.6 L MCH 22.5 L MCHC 27.9 L RDW Std Deviation 22.0 H Plt Count 208 MPV Not Reportable Immature Gran % (Auto) 0.2 Neut % (Auto) 89.8 H Lymph % (Auto) 4.8 L [place] % (Auto) 5.2 Eos % (Auto) 0.0 Baso % (Auto) 0.0 Immature Gran # (Auto) 0.02 Neut # (Auto) 7.37 H Lymph # (Auto) 0.39 L [place] # (Auto) 0.43 Eos # (Auto) 0.00 Baso # (Auto) 0.00 Segmented Neutrophils 93 H Lymphocytes 4 L Monocytes 3 PT INR Specimen Type Sample Site pH pCO2 pO2 HCO3 Base Excess Oxyhemoglobin ABG O2 Sat (Calculated) ABG O2 Saturation ABG Carboxyhemoglobin ABG Methemoglobin Kirk Test A-a O2 Difference Total Hemoglobin Lactate Blood Gas Modality Vent Mode Spontaneous Rate FiO2 % Tidal Volume PEEP Pressure Support Sodium 143 Potassium 4.0 Chloride 98 Carbon Dioxide 25 Anion Gap 20 BUN 24 H Creatinine 1.2 H Estimated GFR/1.73 m2 46 BUN/Creatinine Ratio 20 Glucose 155 H POC Glucose 168 H Calculated Osmolality 292 Calcium 8.0 L Creatine Kinase Troponin T High Sens TSH 07/21/19 07/21/19 07/21/19 10:53 11:35 13:11 WBC RBC Hgb Hct MCV MCH MCHC RDW Std Deviation Plt Count MPV Immature Gran % (Auto) Neut % (Auto) Lymph % (Auto) [place] % (Auto) Eos % (Auto) Baso % (Auto) Immature Gran # (Auto) Neut # (Auto) Lymph # (Auto) [place] # (Auto) Eos # (Auto) Baso # (Auto) Segmented Neutrophils Lymphocytes Monocytes PT 23.8 H INR 2.07 Specimen Type ARTERIAL Sample Site L RADIAL pH 7.43 pCO2 48 H pO2 103 H HCO3 30.1 H Base Excess 6.6 H Oxyhemoglobin 96.7 ABG O2 Sat (Calculated) 14.3 L ABG O2 Saturation 99.6 ABG Carboxyhemoglobin 2.20 ABG Methemoglobin 0.7 Kirk Test YES A-a O2 Difference 194.0 Total Hemoglobin 10.4 L Lactate 2.30 H Blood Gas Modality VENTILATOR Vent Mode Spontaneous Rate FiO2 % 50.0 Tidal Volume PEEP 5.0 Pressure Support 5.00 Sodium Potassium Chloride Carbon Dioxide Anion Gap BUN Creatinine Estimated GFR/1.73 m2 BUN/Creatinine Ratio Glucose POC Glucose 145 H Calculated Osmolality Calcium Creatine Kinase Troponin T High Sens TSH Dr. Rivas evaluated and additional note below. Evaluation time in minutes: 33 minutes. Assessment: Acute on chronic hypoxemic and hypercapnic respiratory failure. Require intuba tion on 07/19/19. On weaning trials today. Possible healthcare-associated pneumonia, LLL. COPD exacerbation. CHF exacerbation with elevated proBNP and pulmonary edema. Stress test on 06/21/19 showed previous infarction in anteroapical region and lateral wall left ventricle, left ventricular ejection fraction of 46% and severe apical hypokinesis. Troponin elevation. Troponin T High Sensitivity is trending down. GEORGE. Noncompliant with home CPAP therapy. Paroxysmal atrial fibrillation. KHANH. Plan: Continue current treatment and supportive care per admitting and other teams on the case. Weaning trials. Antibiotics including cefepime and vancomycin. Diuresis. Bronchodilators q4h. IV Solu-Medrol. Appropriate DVT and GI prophylaxis. Input was appreciated from Admitting MD and other teams on the case. See additional notes by Dr. Rivas.
--- NOTE | 2019-07-21 11:08 | PROGRESS NOTE ---
DATE: 07/21/2019 SUBJECTIVE: Ms. Gregory is a 58-year-old who was admitted on 07/19/2019, well known to our service. She has a history of COPD, congestive heart failure. She did experience shortness of breath. Brought to the hospital. Patient unable to tolerate BiPAP en route to the hospital. When she got to the emergency room, the patient could talk and respond, but was lethargic, getting oxygen, bag mask ventilation. The patient was subsequently intubated and placed on mechanical ventilation. The patient's chest x-ray showed evidence of worsening coarse infiltrate bilaterally, as well as evidence of cardiomegaly. Arterial blood gas was 7.36, pCO2 was 70, O2 was 136, and O2 saturation 99.6%. Troponin level was high at 155. ProBNP was 4225. The patient was admitted to the ICU. This morning, she is on 50% mechanical ventilation, sedated, intubated with 7.5 ETT, FiO2 is 50%, PEEP is 5. She is on a PRVC mode, tidal volume is 500, rate is 12. She appears stable and comfortable, sedated. OBJECTIVE: Vital Signs: Temp 97 degrees, pulse 70, respirations 16, blood pressure 122/74. HEENT: Pupils are equal and round. Lungs: Clear anterolateral. Cardiovascular: Regular rhythm and rate without murmur or S3. Abdomen: Soft. Skin: Warm and dry. Urine output is 1100 mL. IMAGING AND LABORATORY DATA: Blood sugars 131, 121, 168. Chest x-ray: Development of airspace opacity in the left lower lung zone, concerning for the development of pneumonia. ASSESSMENT AND PLAN: 1. Acute hypercapnic respiratory failure. Continue ventilator support. Will try to wean as we can. She is sedated with propofol. Dr. Rivas is following. Continue bronchodilators and antibiotics. 2. Acute systolic congestive heart failure. Continue to try and diurese with diuretics. 3. Paroxysmal atrial fibrillation. Maintain rate control. 4. Elevated troponin, which is nonspecific. Looking for signs of non ST-elevation myocardial infarction, but this is more likely supply demand mismatch. 5. Healthcare-related pneumonia. 6. Chronic obstructive pulmonary disease with exacerbation. 7. Deep venous prophylaxis in place. 8. Gastrointestinal prophylaxis in place. REVIEW OF ORDERS: I do not see any change. She is on cefepime 2 grams IV every 8 hours, vancomycin 1450 mg IV daily. REVIEW OF LABS: Hematocrit is stable at 34, hemoglobin 9.6, white blood cell count is down to 8210. Electrolytes look good with creatinine 1.2, sodium 143, potassium 4.0, chloride 98, BUN 24. cc: MD Prince Koehler MD
[2019-07-21 11:43] LABS: ALLEN TEST YES; BE 6.6 mmoll (-3.0-3.0); BLOOD TYPE ARTERIAL; HCO3-(ACT) 30.1 mmoll (20.0-26.0); METHB 0.7 % (0.0-1.5); O2(CT) 14.3 mL/dL (15.0-23.0); O2HB 96.7 % (95.0-99.0); PCO2(98.6) 48 mmHg (35-45); PO2(98.6) 103 mmHg (60-100); SAMPLE BLOOD; SAO2 99.6 % (95.0-100.0); THB 10.4 g/dL (11.5-17.4); pH(98.6) 7.43 (7.35-7.45)
[2019-07-21 11:44] LABS: MODALITY VENTILATOR
--- NOTE | 2019-07-21 13:35 | INFECTIOUS DISEASE PROGRESS NO ---
DATE: 07/21/2019 PRESENT ILLNESS: The patient has a left lower lobe pneumonia. MEDICATIONS: The patient is on cefepime and vancomycin. This is day 1 of treatment with both of those agents. LABORATORY AND X-RAY: Chest x-ray shows left lower lobe pneumonia. CBC shows a white count of 8210, hemoglobin 9.6, and platelet count 208,000. Blood gases show a pH of 7.48, a PO2 of 94 and a pCO2 of 44. The creatinine is 1.2. The GFR is 46. Sputum is growing a normal juli. Swab for influenza is negative. Blood cultures are negative. ASSESSMENT AND PLAN: The patient has a left lower lobe pneumonia. The plan is to continue with cefepime and vancomycin. COMORBIDITIES: I am unable to determine what the patient's comorbidities are at this time. cc: MD Prince Forte MD
[2019-07-21 13:43] LABS: INR 2.07; PROTIME 23.8 Seconds (11.0-16.0)
[2019-07-21] MEDS: ABREVA CREAM TOP SCH ×2 (17:11→20:13)
--- NOTE | 2019-07-21 19:51 | CARDIOLOGY PROGRESS NOTE ---
DATE: 07/21/2019 SUBJECTIVE: Ms. Gregory is currently sedated, on the ventilator. She is not responsive to verbal or physical stimuli. PHYSICAL EXAMINATION: Afebrile. Heart rate of 89, blood pressure 149/84. Her I's and O's have been negative for the course of the hospitalization, around 1600 to 1700 mL. General: No acute distress. Cardiovascular: Sounds to be in a regular rate and rhythm. She has no obvious murmurs. She has no S3. She has no lower extremity edema. Chest: Sounds relatively clear. She has no increased work of breathing. Abdomen: Soft, nontender. PERTINENT DATA: Her chest x-ray demonstrates an interval increase in the opacity in the left lower lung zone, suggesting a developing pneumonia. Her white count is 8.2, hematocrit is 34, platelet count is 208,000. She has a left shift. Her ABG was reviewed. Lactate is 2.3. Her sodium is 143, potassium is 4, BUN 24, creatinine is 1.2. Troponins have been somewhat elevated. ProBNP is 4225. ASSESSMENT: Ms. Gregory is a 58-year-old female who presented with respiratory failure. Chest x- rays have suggested pulmonary edema as well as a pneumonia. PLAN: At this point, we will continue with supportive care. She is undergoing diuresis at this point, and seems slightly negative as far as her fluid balance goes. We will recheck laboratories in the morning. Will likely recommend cardiac catheterization prior to discharge to delineate her coronary anatomy given her frequent presentations with pulmonary edema and low-level troponin elevations. Certainly, her troponin elevations could be secondary to supply-demand mismatch occurring in the setting of her significant lung disease and respiratory issues, but considering her history of coronary disease, we would want to rule out possible advancement in her coronary artery disease. cc: MD Prince Mejia MD
[2019-07-21] MEDS: PROTONIX IV SCH (20:11)
[2019-07-21] MEDS: SODIUM CHLORIDE 0.9% INJ SCH (20:11)
--- NOTE | 2019-07-21 20:25 | INFECTIOUS DISEASE PROGRESS NO ---
DATE: 07/21/2019 ADDENDUM: This is an addendum to the patient visit I had this morning with Stephanie Gregory. I forgot to mention during my dictation the patient's physical examination. PHYSICAL EXAM: Vital signs: Temperature is 98 degrees, pulse 89, respirations 22, blood pressure 149/84. General: This is a middle-aged, obese female. She has been extubated and is wearing an oxygen mask at this time. Head/eyes/ears/nose/throat: There was no drainage from the nose or ears. I did not see any white patches in her mouth. Neck: No pain with passive movement. Lungs: Clear to auscultation. Cardiovascular: Heart rate is regular. Abdomen: Soft and nontender. Neurologic: The patient is awake. She can move her extremities. There is no tremor. Integument: No rash noted. cc: MD Prince Forte MD
[2019-07-22] MEDS: VANCOMYCIN 1,450 MG in NS 250 ML IV SCH ×2
[2019-07-22] MEDS: MAXIPIME 2 GM/NS 2 GM/100 ML IVPB IV SCH ×3 (00:15→16:21)
[2019-07-22] MEDS: COREG PO SCH ×3 (01:18→20:38)
[2019-07-22] MEDS: LIPITOR PO SCH ×2 (01:19→20:38)
[2019-07-22] MEDS: ABREVA CREAM TOP SCH ×4 (02:19→20:50)
[2019-07-22] MEDS: DUONEB (A & A) INH SCH ×3 (03:44→11:28)
[2019-07-22] MEDS: SOLU-MEDROL IV SCH ×3 (04:04→20:39)
[2019-07-22] MEDS: HUMULIN R SUBQ SCH ×4 (06:10→20:39)
[2019-07-22 06:46] LABS: BASO# 0.01 X1000 (0.0-0.2); BASO% 0.1 % (0.0-0.8); HEMATOCRIT 32.6 % (37.0-47.0); HEMOGLOBIN 8.9 g/dL (12.0-16.0); IMM GRAN# 0.02 X1000 (0.0-0.04); IMM GRAN% 0.2 % (0.0-0.5); LYMPH# 0.64 X1000 (1.2-3.4); LYMPH% 5.6 % (20.5-51.1); MCH 22.4 PG (27-31); MCHC 27.3 g/dL (33-37); MCV 82.1 FL (81-99); MONO# 0.58 X1000 (0.11-0.59); MONO% 5.1 % (1.7-9.3); PLT 236 X1000 (130-400); RBC 3.97 XMIL (4.2-5.4); RDW 22.1 % (11.5-14.5); WBC 11.45 X1000 (4.8-10.8)
[2019-07-22 07:20] LABS: CREATININE 1.2 mg/dL (0.5-0.9); MAGNESIUM 1.6 mg/dL (1.5-2.7); POTASSIUM 3.9 mmol/L (3.5-5.1)
[2019-07-22] MEDS: LASIX IV SCH ×2 (08:26→20:39)
[2019-07-22] MEDS: LOVENOX SUBQ SCH (08:26)
[2019-07-22] MEDS ORDERED: MAGNESIUM SULFATE 2 GM/S.W.I. 2 GM/50 ML IVPB IV ONE (08:52)
--- NOTE | 2019-07-22 09:19 | CARDIOLOGY PROGRESS NOTE ---
DATE: 07/22/2019 SUBJECTIVE: Ms. Gregory reports no complaints today. She has been extubated. She reports her breathing is doing well. PHYSICAL EXAMINATION: Vital Signs: She is afebrile. Her heart rates are in the 100s to 110s. Her blood pressure 145/69. Her I's and O's continue to be negative; on the order for the hospitalization she is -3.1 liters. Generally: No acute distress. Cardiovascular: She is in a tachycardic and regular rhythm. She has no murmurs, no S3. Chest exam: Has some coarse breath sounds somewhat diffusely. Abdomen: Soft, nontender. PERTINENT DATA: White count 11.4, hematocrit is 32, platelet count is 236. Sodium 146, potassium 3.9. BUN 44, creatinine is 1.2. ProBNP is 14,000 which is up from 4200 on the . ASSESSMENT: Ms. Gregory is a 58-year-old female, who presented with respiratory failure and pneumonia. PLAN: At this point, her chest x-ray on the did not show any evidence of pulmonary edema. Her AA gradient is improved. She has been extubated. She is carrying a negative fluid balance. Clinically she does not seem to be behaving like fluid overload, and right now we will not treat the elevated proBNP as the bulk of the evidence points towards improving oxygenation, no pulmonary edema and a negative fluid balance overall. Her magnesium is slightly low at 1.6. I will replete. She is on IV diuretics at this point. cc: MD Prince Mejia MD
--- NOTE | 2019-07-22 10:30 | PROVIDER PROGRESS NOTE ---
Progress Note Pulmonary additional note: I have seen and examined the case, reviewed the EMR, labs, latest images and other medical teams notes. Also reviewed the [employer] notes and signed necessary form(s). I have noted changes in condition if any from yesterday and did orders. Please see also signed progress sheet. Today she is tolerating NC alternating with Bipap. Hemodynamically stable. Extubated yesterday and tolerated that. Prognosis: Not great on the long run given advanced COPD, recurrent admissions and co-morbidities. I reviewed latest notes from Dr. Hoff and Dr. Gary. She is diuresed with I/O -1400 Respiratory failure, COPD and Pneumonia. Pulmonary edema. Elevated troponins being seen by Dr. Hoff's consult. I asked staffing manager about condition changes and if they have any needs in regard to today conditions. I discussed the case with her and her and Dr. Cintron. I spent 34 minutes in this process.
[2019-07-22 11:05] LABS: ALLEN TEST YES; BE 2.4 mmoll (-3.0-3.0); BLOOD TYPE ARTERIAL; HCO3-(ACT) 26.7 mmoll (20.0-26.0); METHB 0.7 % (0.0-1.5); O2(CT) 10.2 mL/dL (15.0-23.0); PCO2(98.6) 36 mmHg (35-45); PO2(98.6) 53 mmHg (60-100); SAMPLE BLOOD; SAO2 91.3 % (95.0-100.0); THB 8.1 g/dL (11.5-17.4); pH(98.6) 7.47 (7.35-7.45)
[2019-07-22 11:06] LABS: MODALITY COOL AEROSOL; O2HB 88.7 % (95.0-99.0)
--- NOTE | 2019-07-22 11:13 | Diag Imaging Result Doc PS360 ---
CHEST-1 VIEW - 07/22/2019 INDICATION: SOB COMPARISON: 07/21/2019 FINDINGS: The patient has been extubated. Lung volumes remain good. There has been significant improvement in the extensive bibasilar infiltrates or atelectasis. There is still some perivascular congestion and trace infiltrate in the upper lobes. Stable mild cardiomegaly. No large pleural effusion. IMPRESSION: Patient extubated. Significant improvement in aeration of the lungs bilaterally. Electronically signed by Wan Eddy 07/22/2019 11:11 AM
--- NOTE | 2019-07-22 11:33 | PROVIDER PROGRESS NOTE ---
Progress Note Dr. Rivas Progress Note/Pulmonary and or critical care We appreciated progress of care, Complications, change in diagnosis, and instructions to patient under direct supervision of Dr. Rivas. Subjective: We note the level of consciousness, bed (chair) position, family presence (if any), level of lethargy, feeling of symptoms, and changes from baseline condition/symptom. The patient is lying in bed with CAM 50% on and tolerates well at this time. She appears a bit nervous with hands involuntarily grabbing rails really tightly bilaterally, but very pleasant and cooperative. She has tachypnea with RR 28 and tachycardia [address] suppression. Her BP is 99/60 at this time. She c/o pain on BLE. She states she has neuropathy. She does have audible rattle type noise with breathing, but reports no chest congestion/pain/tightness. She reports that she has quit smoking over 9 months. I/O -1440 ml today and has been negative for 3 days. Objective: Vital Signs: We reviewed EMR current values for Pulse rate, Blood pressure, Pulse rate, respiratory rate and Pulse oximetry. Also noted other values and trends if present (e.g. I/O, CVP). Vital Signs 07/21/19 15:32 07/21/19 15:47 07/21/19 16:02 Temperature Pulse Rate 95 H 92 H 94 H Respiratory Rate 16 14 19 Blood Pressure 133/76 126/82 130/76 O2 Sat by Pulse Oximetry 93 L 93 L 90 L 07/21/19 16:03 07/21/19 16:17 07/21/19 16:32 Temperature Pulse Rate 95 H 96 H Respiratory Rate 15 17 Blood Pressure 136/79 137/83 O2 Sat by Pulse Oximetry 94 L 93 L 93 L 07/21/19 16:47 07/21/19 17:02 07/21/19 17:12 Temperature 99.3 F Pulse Rate 90 95 H 95 H Respiratory Rate 20 17 19 Blood Pressure 125/74 134/81 134/81 O2 Sat by Pulse Oximetry 90 L 97 94 L 07/21/19 17:17 07/21/19 17:32 07/21/19 17:47 Temperature Pulse Rate 95 H 95 H 96 H Respiratory Rate 17 17 28 H Blood Pressure 135/85 132/78 131/77 O2 Sat by Pulse Oximetry 95 95 91 L 07/21/19 18:02 07/21/19 18:17 07/21/19 18:32 Temperature Pulse Rate 97 H 92 H 95 H Respiratory Rate 19 23 20 Blood Pressure 134/81 125/73 134/79 O2 Sat by Pulse Oximetry 92 L 90 L 96 07/21/19 18:47 07/21/19 19:02 07/21/19 19:17 Temperature Pulse Rate 95 H 93 H 95 H Respiratory Rate 16 16 16 Blood Pressure 135/79 123/73 139/80 O2 Sat by Pulse Oximetry 96 96 95 07/21/19 19:32 07/21/19 19:47 07/21/19 19:48 Temperature Pulse Rate 99 H 96 H 96 H Respiratory Rate 19 27 H 22 Blood Pressure 122/80 139/78 O2 Sat by Pulse Oximetry 96 92 L 94 L 07/21/19 20:02 07/21/19 20:17 07/21/19 20:32 Temperature 99.1 F Pulse Rate 94 H 96 H 97 H Respiratory Rate 16 16 16 Blood Pressure 129/74 138/84 135/81 O2 Sat by Pulse Oximetry 97 92 L 96 07/21/19 20:47 07/21/19 21:02 07/21/19 21:17 Temperature Pulse Rate 94 H 95 H 96 H Respiratory Rate 17 16 17 Blood Pressure 135/80 141/83 138/80 O2 Sat by Pulse Oximetry 93 L 93 L 93 L 07/21/19 22:02 07/21/19 23:02 07/22/19 00:02 Temperature 98.8 F Pulse Rate 96 H 95 H 97 H Respiratory Rate 17 17 14 Blood Pressure 133/79 135/71 112/71 O2 Sat by Pulse Oximetry 100 100 100 07/22/19 01:02 07/22/19 02:00 07/22/19 03:03 Temperature Pulse Rate 104 H 101 H 112 H Respiratory Rate 12 19 21 Blood Pressure 113/71 98/61 108/56 O2 Sat by Pulse Oximetry 100 100 100 07/22/19 04:00 07/22/19 04:41 07/22/19 05:02 Temperature 99.1 F Pulse Rate 112 H 107 H 111 H Respiratory Rate 23 20 23 Blood Pressure 108/65 108/65 119/79 O2 Sat by Pulse Oximetry 100 99 100 07/22/19 06:03 07/22/19 07:03 07/22/19 07:30 Temperature 99.3 F Pulse Rate 122 H 105 H 116 H Respiratory Rate 27 H 19 24 Blood Pressure 142/113 145/69 145/69 O2 Sat by Pulse Oximetry 95 100 92 L 07/22/19 07:49 07/22/19 08:11 07/22/19 09:10 Temperature Pulse Rate 115 H 119 H 117 H Respiratory Rate 21 26 H 20 Blood Pressure 101/49 125/78 O2 Sat by Pulse Oximetry 93 L 98 97 07/22/19 09:24 07/22/19 09:32 07/22/19 09:43 Temperature Pulse Rate 115 H 115 H 112 H Respiratory Rate 28 H 25 H 27 H Blood Pressure 127/72 107/83 125/75 O2 Sat by Pulse Oximetry 99 98 98 07/22/19 09:52 07/22/19 10:02 07/22/19 10:12 Temperature Pulse Rate 111 H 106 H 105 H Respiratory Rate 27 H 27 H 29 H Blood Pressure 113/74 104/62 107/65 O2 Sat by Pulse Oximetry 95 95 96 07/22/19 10:22 07/22/19 10:32 07/22/19 10:42 Temperature Pulse Rate 104 H 101 H 103 H Respiratory Rate 29 H 24 26 H Blood Pressure 100/65 109/64 94/59 O2 Sat by Pulse Oximetry 96 96 95 07/22/19 10:52 07/22/19 11:03 07/22/19 11:04 Temperature Pulse Rate 104 H 105 H 105 H Respiratory Rate 29 H 25 H 24 Blood Pressure 91/62 88/48 99/60 O2 Sat by Pulse Oximetry 93 L 94 L 93 L 07/22/19 11:12 07/22/19 11:22 07/22/19 11:28 Temperature Pulse Rate 105 H 102 H Respiratory Rate 24 24 Blood Pressure 94/62 97/60 O2 Sat by Pulse Oximetry 97 95 07/22/19 11:32 07/22/19 11:42 07/22/19 11:52 Temperature Pulse Rate 105 H 105 H 106 H Respiratory Rate 25 H 25 H 29 H Blood Pressure 100/63 96/63 82/53 O2 Sat by Pulse Oximetry 95 96 96 07/22/19 11:53 07/22/19 12:02 07/22/19 12:03 Temperature Pulse Rate 106 H 104 H 104 H Respiratory Rate 25 H 23 24 Blood Pressure 75/52 90/60 82/56 O2 Sat by Pulse Oximetry 96 98 99 07/22/19 12:13 07/22/19 12:22 07/22/19 12:32 Temperature 98.8 F Pulse Rate 107 H 104 H 105 H Respiratory Rate 21 19 25 H Blood Pressure 92/53 86/53 86/53 O2 Sat by Pulse Oximetry 98 99 98 07/22/19 12:44 07/22/19 12:52 07/22/19 13:02 Temperature Pulse Rate 104 H 105 H 104 H Respiratory Rate 23 23 23 Blood Pressure 116/61 93/61 88/56 O2 Sat by Pulse Oximetry 100 100 100 07/22/19 13:12 07/22/19 13:22 07/22/19 13:32 Temperature Pulse Rate 103 H 104 H 105 H Respiratory Rate 24 23 26 H Blood Pressure 97/58 113/68 99/56 O2 Sat by Pulse Oximetry 100 100 98 07/22/19 13:42 07/22/19 13:52 07/22/19 14:02 Temperature Pulse Rate 102 H 101 H 101 H Respiratory Rate 19 21 20 Blood Pressure 100/61 100/65 105/67 O2 Sat by Pulse Oximetry 99 100 100 07/22/19 14:12 Temperature Pulse Rate 101 H Respiratory Rate 20 Blood Pressure 101/62 O2 Sat by Pulse Oximetry 100 Intake & Output 07/21/19 07/22/19 07/22/19 19:59 07:59 19:59 Intake Total 195 / 700 505 / 700 865 / 865 Output Total 700 / 2140 1440 / 2140 1200 / 1200 Balance -505 / -1440 -935 / -1440 -335 / -335 Intake: Intake, IVPB 105 / 610 505 / 610 105 / 105 Intake, IV Electrolyte Infusion 40 / 40 Intake, IV Diprivan 90 / 90 Intake, Oral Amount 720 / 720 Output: Output, Urine Leary Amount 700 / 2140 1440 / 2140 1200 / 1200 Other: Number of Bowel Movements 0 0 0 Physical Examination: General: Intubated. Lying in bed with no acute distress noted. at the bedside. HEENT: Trachea midline. ETT in place. Mucus pink and moist. Chest: Even and unlabored. Symmetrical excursion. Auscultation reveals diminished breathing sounds b/l, ronchi and early inspiratory crackles bibasilarly with generalized coarseness. CVS: S1 S2. Abdomen: Soft. Obese. Normoactive bowel sounds in all 4 quadrants. Extremities: BLE pitting edema 1-2+ with RLE slightly worse than LLE. A small area of erythema with a small skin tear in the middle on left agosto anteriorly. BUE trace edema. Dorsalis pedis diminished b/l. BLE pain on palpation. Neuro: A/O x3. Speech fluent. Answer simple questions. Follow simple commands. Labs and Radiology: Reviewed available labs and radiology values available at time of EMR review. Laboratory Results 07/21/19 07/21/19 07/22/19 16:10 21:19 04:00 WBC RBC Hgb Hct MCV MCH MCHC RDW Std Deviation Plt Count MPV Immature Gran % (Auto) Neut % (Auto) Lymph % (Auto) [place] % (Auto) Eos % (Auto) Baso % (Auto) Immature Gran # (Auto) Neut # (Auto) Lymph # (Auto) [place] # (Auto) Eos # (Auto) Baso # (Auto) Specimen Type Sample Site pH pCO2 pO2 HCO3 Base Excess Oxyhemoglobin ABG O2 Sat (Calculated) ABG O2 Saturation ABG Carboxyhemoglobin ABG Methemoglobin Kirk Test A-a O2 Difference Total Hemoglobin Lactate Liter Flow Blood Gas Modality FiO2 % Sodium 146 H Potassium 3.9 Chloride 102 Carbon Dioxide 29 Anion Gap 15 BUN 44 H D Creatinine 1.2 H Estimated GFR/1.73 m2 46 BUN/Creatinine Ratio 37 Glucose 149 H POC Glucose 129 H 136 H Calculated Osmolality 305 Calcium 8.0 L Magnesium 1.6 [id number]-Stfnvedwvyp Pept 07/22/19 07/22/19 07/22/19 04:00 04:00 06:05 WBC 11.45 H RBC 3.97 L Hgb 8.9 L Hct 32.6 L MCV 82.1 MCH 22.4 L MCHC 27.3 L RDW Std Deviation 22.1 H Plt Count 236 MPV 13.0 H Immature Gran % (Auto) 0.2 Neut % (Auto) 89.0 H Lymph % (Auto) 5.6 L [place] % (Auto) 5.1 Eos % (Auto) 0.0 Baso % (Auto) 0.1 Immature Gran # (Auto) 0.02 Neut # (Auto) 10.20 H Lymph # (Auto) 0.64 L [place] # (Auto) 0.58 Eos # (Auto) 0.00 Baso # (Auto) 0.01 Specimen Type Sample Site pH pCO2 pO2 HCO3 Base Excess Oxyhemoglobin ABG O2 Sat (Calculated) ABG O2 Saturation ABG Carboxyhemoglobin ABG Methemoglobin Kirk Test A-a O2 Difference Total Hemoglobin Lactate Liter Flow Blood Gas Modality FiO2 % Sodium Potassium Chloride Carbon Dioxide Anion Gap BUN Creatinine Estimated GFR/1.73 m2 BUN/Creatinine Ratio Glucose POC Glucose 175 H Calculated Osmolality Calcium Magnesium [id number]-Hewqirtixee Pept 65105 H 07/22/19 07/22/19 10:49 10:50 WBC RBC Hgb Hct MCV MCH MCHC RDW Std Deviation Plt Count MPV Immature Gran % (Auto) Neut % (Auto) Lymph % (Auto) [place] % (Auto) Eos % (Auto) Baso % (Auto) Immature Gran # (Auto) Neut # (Auto) Lymph # (Auto) [place] # (Auto) Eos # (Auto) Baso # (Auto) Specimen Type ARTERIAL Sample Site L RADIAL pH 7.47 H pCO2 36 pO2 53 L HCO3 26.7 H Base Excess 2.4 Oxyhemoglobin 88.7 L* ABG O2 Sat (Calculated) 10.2 L ABG O2 Saturation 91.3 L ABG Carboxyhemoglobin 2.20 ABG Methemoglobin 0.7 Kirk Test YES A-a O2 Difference 259.0 Total Hemoglobin 8.1 L Lactate 7.40 H* Liter Flow 8.0 Blood Gas Modality COOL AEROSOL FiO2 % 50.0 Sodium Potassium Chloride Carbon Dioxide Anion Gap BUN Creatinine Estimated GFR/1.73 m2 BUN/Creatinine Ratio Glucose POC Glucose 127 H Calculated Osmolality Calcium Magnesium [id number]-Pjhdwmrwfwm Pept Dr. Rivas evaluated and additional note below. Evaluation time in minutes: 34 minutes. Assessment: Acute on chronic hypoxemic and hypercapnic respiratory failure. Require intubation on 07/19/19 and extubated on 07/21/19. Possible healthcare-associated pneumonia, LLL. COPD exacerbation. Improving. CHF exacerbation with elevated proBNP and pulmonary edema. Stress test on 06/21/19 showed previous infarction in anteroapical region and lateral wall left ventricle, left ventricular ejection fraction of 46% and severe apical [place] [address] this am, worsening. Troponin elevation. Troponin T High Sensitivity is trending down. GEORGE. Noncompliant with home CPAP therapy. Paroxysmal atrial fibrillation. KHAHN. Plan: Continue current treatment and supportive care per admitting and other teams on the case. Antibiotics including cefepime and vancomycin. Diuresis. Bronchodilators q4h. IV Solu-Medrol. Appropriate DVT and GI prophylaxis. Input was appreciated from Admitting MD and other teams on the case. See additional notes by Dr. Rivas.
[2019-07-22] MEDS ORDERED: NS NEB INH SCH (12:00)
--- NOTE | 2019-07-22 12:24 | INFECTIOUS DISEASE PROGRESS NO ---
DATE: 07/22/2019 PRESENT ILLNESS: The patient has a left lower lobe pneumonia. MEDICATIONS: This is the second day of treatment with cefepime and vancomycin. PHYSICAL EXAMINATION: Vital Signs: Temperature is 99 degrees, pulse 122, respirations 27, blood pressure is 142/113. General: This is an ill-appearing, middle-aged female. She is in no acute distress. She is wearing a BiPAP mask. Head/eyes/ears/nose/throat: As mentioned above the patient is wearing a BiPAP mask. I do not see any drainage from her nose or the ears. She did open her mouth a couple times for me and I did not see any white patches. Neck: No pain with movement. Lungs: Clear to auscultation. Cardiovascular: Heart rate is regular. Abdomen: Soft and nontender. Neurologic: The patient is alert. She moved her extremities to request. There is no tremor. Extremities: The left leg cellulitis site is less erythematous. LAB AND X-RAY: There is no new x-ray for today. Yesterday's x-ray showed an infiltrate in the left lower lobe. [place] [address], hemoglobin 8.9, and platelet count 236,000 creatinine is 1.2, GFR is 46. Sputum culture grew normal juli. Test for influenza and blood cultures are both negative. ASSESSMENT AND PLAN: Patient has a left lower lobe pneumonia. My plan is to continue with cefepime and vancomycin. I have also ordered a CBC and BMP and chest x-ray for the next 4 days. COMORBIDITIES: I did not find any in this patient. cc: MD Prince Forte MD MTDD
[2019-07-22] MEDS: NORCO-5 PO PRN ×2 (13:13→22:06)
--- NOTE | 2019-07-22 13:28 | PROGRESS NOTE ---
DATE: 07/22/2019 SUBJECTIVE: Ms. Gregory is off the ventilator. She is awake. She is asking for her Brigantine for her pain medicine. She is on supplemental O2 with face mask. OBJECTIVE: Temperature 98.8 degrees, pulse 100, respirations 19, blood pressure 86/53. Pupils are equal and round. Lungs are clear in all lung acosta. Cardiovascular Examination: Regular rhythm and rate without murmur or S3. Abdomen is soft. Skin is warm and dry. Urine output is 3500 mL. Blood sugar 129, 175, 129. ASSESSMENT AND PLAN: 1. Acute on chronic hypoxemic and hypercapnic respiratory failure. She was intubated 07/19/2019, extubated yesterday. She is still off the ventilator. 2. Possible healthcare-associated pneumonia, left lower lobe. She has underlying chronic obstructive pulmonary disease so this is a chronic obstructive pulmonary disease exacerbation. 3. She also has a history of congestive heart failure. She has an elevated proBNP. 4. Pulmonary edema. 5. Looking at previous stress test on 06/21, it showed previous infarction in the anterior apical region, lateral left ventricle. Left ventricular ejection fraction is 46%. Severe apical hypokinesis. ProBNP was up to 14,000 this morning. Troponin elevation, high sensitivity, seems to be trending down and this may represent supply-demand mismatch. 6. Obstructive sleep apnea. 7. Paroxysmal atrial fibrillation. Rate appears controlled. 8. It is difficult to try and keep her off of respiratory suppressing medications that she is used to taking him at home and she is pleading for some Brigantine, so I will put her on some Brigantine 2.5 mg by mouth every 6 hours as needed. cc: MD Prince Koehler MD
[2019-07-22] MEDS: XOPENEX NEB INH SCH ×3 (15:30→23:49)
[2019-07-22] MEDS: ATROVENT NEB INH SCH ×3 (15:35→23:49)
[2019-07-22] MEDS: SODIUM CHLORIDE 0.9% INJ SCH (20:39)
[2019-07-22] MEDS: PROTONIX IV SCH (20:39)
[2019-07-23] MEDS: MAXIPIME 2 GM/NS 2 GM/100 ML IVPB IV SCH ×4 (00:19→23:14)
[2019-07-23] MEDS: ABREVA CREAM TOP SCH ×4 (02:52→20:40)
[2019-07-23] MEDS: XOPENEX NEB INH SCH ×5 (03:04→23:11)
[2019-07-23] MEDS: ATROVENT NEB INH SCH ×6 (03:04→23:11)
[2019-07-23 04:40] LABS: ALLEN TEST YES; BE 12.4 mmoll (-3.0-3.0); BLOOD TYPE ARTERIAL; HCO3-(ACT) 34.6 mmoll (20.0-26.0); METHB 0.4 % (0.0-1.5); O2(CT) 9.1 mL/dL (15.0-23.0); PCO2(98.6) 41 mmHg (35-45); PO2(98.6) 194 mmHg (60-100); SAMPLE BLOOD; SAO2 99.9 % (95.0-100.0); THB 6.3 g/dL (11.5-17.4); pH(98.6) 7.55 (7.35-7.45)
[2019-07-23 04:42] LABS: MODALITY BI PAP
[2019-07-23] MEDS: SOLU-MEDROL IV SCH ×3 (04:52→20:24)
--- NOTE | 2019-07-23 06:21 | Diag Imaging Result Doc PS360 ---
EXAM: CHEST-1 VIEW HISTORY: pneumonia TECHNIQUE: Single view COMPARISON: 07/22/2019 FINDINGS: The lungs are well expanded. The heart is mildly enlarged. No pleural effusions identified. There are small basilar infiltrates. No consolidation. IMPRESSION: Slight interval worsening Electronically signed by Armaan Baldwin 07/23/2019 6:19 AM
[2019-07-23] MEDS: HUMULIN R SUBQ SCH ×4 (06:23→20:24)
[2019-07-23 06:53] LABS: CALCIUM 8.3 mg/dL (8.8-10.2); POTASSIUM 4.4 mmol/L (3.5-5.1)
[2019-07-23] MEDS: NORCO-5 PO PRN (07:51)
[2019-07-23] MEDS: COREG PO SCH ×2 (08:50→20:24)
[2019-07-23] MEDS: LASIX IV SCH ×2 (08:50→20:24)
[2019-07-23 09:17] LABS: BASO# 0.04 X1000 (0.0-0.2); BASO% 0.6 % (0.0-0.8); HEMATOCRIT 24.2 % (37.0-47.0); HEMOGLOBIN 6.6 g/dL (12.0-16.0); IMM GRAN# 0.03 X1000 (0.0-0.04); IMM GRAN% 0.4 % (0.0-0.5); LYMPH# 0.65 X1000 (1.2-3.4); LYMPH% 9.7 % (20.5-51.1); MCH 23.4 PG (27-31); MCHC 27.3 g/dL (33-37); MCV 85.8 FL (81-99); MONO# 0.69 X1000 (0.11-0.59); MONO% 10.3 % (1.7-9.3); NEUT# 5.28 X1000 (1.4-6.5); PLT 191 X1000 (130-400); RBC 2.82 XMIL (4.2-5.4); RDW 22.6 % (11.5-14.5); WBC 6.69 X1000 (4.8-10.8)
--- NOTE | 2019-07-23 09:22 | Diag Imaging Result Doc PS360 ---
EXAM: ABDOMEN FLAT/UPRIGHT HISTORY: abdominal pain TECHNIQUE: Two views COMPARISON: 09/01/2018 FINDINGS: No free air beneath the diaphragm. The gallbladder has been removed. There is a left iliac arterial stent. Severe atherosclerosis. No bowel obstruction. No organomegaly. IMPRESSION: No acute abnormality Electronically signed by Armaan Baldwin 07/23/2019 9:20 AM
[2019-07-23 09:55] LABS: LYMPHS 10 % (21-51); SEGS 90 % (42-75)
[2019-07-23 09:56] LABS: ANISOCYTOSIS 2+; HYPOCHROM 1+; POIKILOCYTOSIS 2+
[2019-07-23 09:57] LABS: LARGE PLATELETS 1+; SICKLE CELLS OCCASIONAL; TARGET CELLS OCCASIONAL
[2019-07-23] MEDS ORDERED: NS 500 ML IV ONE ×2 (11:10→14:02)
[2019-07-23] MEDS: KLONOPIN PO PRN ×2 (11:47→20:23)
[2019-07-23] MEDS: VANCOMYCIN 1,100 MG in NS 250 ML IV SCH (12:43)
--- NOTE | 2019-07-23 16:47 | PROGRESS NOTE ---
DATE: 07/23/2019 SUBJECTIVE: She is breathing well off of BiPAP. She is really demanding to get her Klonopin back because of her anxiety and, of course she wants pain medicine, but she is wanting to eat. She is hungry. She is awake and alert, oriented x3. She received a blood transfusion. Her hemoglobin was low and her is adamant that she gets her Ativan back again. She was on 1 mg 3 times a day. I explained again that is too high for her. I put her on 0.5 Klonopin twice a day. OBJECTIVE: Vital Signs: Temperature is 97.9 degrees. She remains afebrile. Pulse 80, respirations 13, blood pressure 112/63. Pupils are equal and round. Lungs: Clear in all lung acosta. Cardiovascular: Regular rhythm and rate without murmur or S3. Abdomen: Soft. Skin: Warm and dry. IMAGING STUDIES: Abdominal x-ray no acute abnormality. No free air below the diaphragm. Gallbladder has been removed. There is an iliac arterial stent appreciated, severe atherosclerosis. No bowel obstruction or organomegaly. Chest x-ray, slight interval worsening on the chest x-ray. ASSESSMENT AND PLAN: 1. Acute on chronic hypoxemic hypercapnic respiratory failure. Was intubated on 07/19/2019, was extubated 2 days ago, doing well. She is off of BiPAP. I think she could possibly move to the floor. 2. Possible healthcare associated pneumonia left lower lobe, underlying chronic obstructive pulmonary disease with exacerbation. 3. History of congestive heart failure. She has had an elevated proBNP. 4. Pulmonary edema. 5. Looking at previous stress test in 2016 showed previous infarction in the anterior apical region lateral left ventricle. Left ventricular ejection fraction is 46 percent, severe apical hypokinesis[place] [address] when she came in. Troponin had elevation. This may have been oxygen supply demand mismatch, but she is doing much better. No sign of cardiac ischemia. 6. Obstructive sleep apnea. 7. Paroxysmal atrial fibrillation, which rate appears controlled. 8. She has continue stress that she does not need and it is detrimental for her to take the current dose of her management for Klonopin. I will put her back on 0.5 mg b.i.d. as there is insistence she started back on Klonopin. I put her back on some pain medications, but she is on hydrocodone 5 mg q.6 hours p.r.n. pain. I think we can move her to the floor. REVIEW OF LABS: Her lab from this morning, hemoglobin 6.6, hematocrit is 24. We have stopped her Plavix. Sodium 145, potassium 4.4, chloride 103, BUN 79, creatinine 1.0, blood sugar 154, 167, 161, 157, 139. cc: MD Prince Koehler MD
--- NOTE | 2019-07-23 17:09 | INFECTIOUS DISEASE PROGRESS NO ---
DATE: 07/23/2019 PRESENT ILLNESS: The patient has bibasilar infiltrates compatible with pneumonia. MEDICATIONS: This is the third day of treatment with cefepime and vancomycin. PHYSICAL EXAMINATION: Vital Signs: Temperature is 98.6 degrees, pulse 92, respirations 15, blood pressure is 106/62. General: This is an ill-appearing middle-aged female. She is in no acute distress. She says that she is having abdominal pain. Head, Eyes, Ears, Nose, and Throat: She can hear my spoken words and see near objects. She is wearing a BiPAP mask. Neck: No stiffness. Lungs: Clear to auscultation. Cardiovascular: Heart rate is regular. Abdomen: Soft and not tender to light palpation, but the patient does say that she is having abdominal pain. Neurologic: Patient is alert. She can move her extremities. She does not have a tremor. Extremities: Patient's erythema has cleared from her legs. LAB AND X-RAY: Chest x-ray shows bibasilar infiltrates. CBC shows a white count of 11,450, hemoglobin 8.9, platelet count 236,000. Blood gases show a pH of 7.55, a pO2 of 194 and a pCO2 of 41. Creatinine is 1. GFR is 57. Sputum grew normal juli. Influenza test is negative. Blood cultures are negative thus far. ASSESSMENT AND PLAN: The patient has bibasilar pneumonia. My plan is to continue with her antibiotics. The patient also complains of abdominal pain. I am going to go ahead and get a portable abdominal x-ray. COMORBIDITIES: None found. cc: MD Prince Forte MD
[2019-07-23] MEDS: PROTONIX IV SCH (20:24)
[2019-07-23] MEDS: SODIUM CHLORIDE 0.9% INJ SCH (20:24)
[2019-07-23] MEDS: LIPITOR PO SCH (20:24)
--- NOTE | 2019-07-23 20:57 | PULMONOLOGY PROGRESS NOTE ---
DATE: 07/23/2019 SUBJECTIVE: Ms. Gregory is lying on the bed, watching TV. She states that she is feeling some better today, that she is comfortable. She is currently wearing BiPAP. OBJECTIVE: Vital signs: Blood pressure is 117/69 with a heart rate of 90, respirations are 16, temperature is 98.2 degrees, with O2 saturations 96% to 99% on BiPAP at 30%. Cardiovascular: S1 and S2 are appreciated. No murmur. She has no lower extremity edema. Peripheral pulses are palpable.Pulmonary: Breath sounds are coarse throughout. Chest rises and falls symmetric with respiration. Chest wall is nontender to palpation. Gastrointestinal: Abdomen is soft, nontender, nondistended, with bowel sounds in all 4 quadrants. Neurologic: She is alert oriented x3. Skin is warm and dry. LABORATORY DATA: WBC is 6.6 with hemoglobin 6.6, hematocrit 24.2, platelets of 191,000. Sodium is 145, potassium 4.4, BUN 79, creatinine 1 with a glucose 167. ABG: PH is 7.5 with a pCO2 of 41, pO2 of 194 with a bicarbonate of 34.6. This is on BiPAP at 60%. ASSESSMENT AND PLAN: 1. [id number] hypoxemic hypercapnic respiratory failure. The patient was intubated on 07/19, extubated on 07/21. continue with supplemental oxygen use and bilevel positive airway pressure as needed. 2. Possible healthcare-associated pneumonia, left lower lobe. continue antibiotics as ordered per primary team. Blood cultures are negative, with sputum revealing normal juli. 3. History of congestive heart failure with elevated proBNP and pulmonary edema. continue intravenous diuresis. 4. Chronic obstructive pulmonary disease exacerbation. Continue bronchodilators q.4 hours with intravenous Solu-Medrol. 5. History of obstructive sleep apnea. Patient noncompliant with continuous positive airway pressure therapy at home. 6. Paroxysmal atrial fibrillation, rate controlled. Plan was discussed with Dr. Bowens. Dictated by RALPH Lugo for Indra Bowens MD cc: RALPH Lugo MD Clement Okinedo, MD [facility] HOSPITALMinh
[2019-07-24] MEDS: ABREVA CREAM TOP SCH ×5 (00:10→21:55)
[2019-07-24] MEDS: NORCO-5 PO PRN ×2 (00:16→15:08)
[2019-07-24] MEDS: XOPENEX NEB INH SCH ×7 (02:32→23:20)
[2019-07-24] MEDS: ATROVENT NEB INH SCH ×6 (02:32→23:20)
[2019-07-24] MEDS: SOLU-MEDROL IV SCH ×3 (05:16→21:54)
[2019-07-24] MEDS: HUMULIN R SUBQ SCH ×4 (06:53→21:55)
[2019-07-24 07:37] LABS: HEMATOCRIT 29.5 % (37.0-47.0); HEMOGLOBIN 8.6 g/dL (12.0-16.0); LYMPH# 0.53 X1000 (1.2-3.4); LYMPH% 10.5 % (20.5-51.1); MCHC 29.2 g/dL (33-37); MCV 82.4 FL (81-99); MONO# 0.27 X1000 (0.11-0.59); MONO% 5.4 % (1.7-9.3); MPV 13.3 FL (7.4-10.4); NEUT# 4.23 X1000 (1.4-6.5); NEUT% 84.1 % (42.2-75.2); PLT 171 X1000 (130-400); RBC 3.58 XMIL (4.2-5.4); RDW 19.4 % (11.5-14.5); WBC 5.03 X1000 (4.8-10.8)
--- NOTE | 2019-07-24 07:37 | Diag Imaging Result Doc PS360 ---
EXAM: CHEST-1 VIEW 07/24/2019 HISTORY: pneumonia TECHNIQUE: AP portable erect at 0633 COMMENT: There is cardiomegaly. There may be mild interstitial pulmonary edema. Considering differences in technique compared to 07/23/2019 this has not changed significantly. IMPRESSION: Stable chest. Electronically signed by Rubén Leahy 07/24/2019 7:35 AM
[2019-07-24 07:45] LABS: CALCIUM 8.6 mg/dL (8.8-10.2); CREATININE 1.1 mg/dL (0.5-0.9); POTASSIUM 3.9 mmol/L (3.5-5.1)
[2019-07-24] MEDS: LASIX IV SCH ×2 (08:10→21:54)
[2019-07-24] MEDS: KLONOPIN PO PRN ×2 (08:10→21:54)
[2019-07-24] MEDS: COREG PO SCH ×2 (08:10→21:55)
[2019-07-24] MEDS: MAXIPIME 2 GM/NS 2 GM/100 ML IVPB IV SCH ×3 (08:15→23:08)
--- NOTE | 2019-07-24 11:24 | PROGRESS NOTE ---
DATE: 07/24/2019 SUBJECTIVE: Ms. Gregory feels better. She was sleeping when I came in the room, was easy to arouse. Seems to be breathing comfortably. She still has a Leary catheter. OBJECTIVE: Vital Signs: Temperature 97.4 degrees, pulse 88, respirations 18, blood pressure 119/75. Eyes: Pupils are equal and round. Lungs: Clear in all lung acosta. Cardiovascular exam: Regular rhythm and rate without murmur or S3. Abdomen: Soft. Skin: Warm and dry. : Urine output is 3800 mL. X-RAYS: Chest x-ray: Stable chest. Lung acosta are clear. Has cardiomegaly, mild interstitial pulmonary edema. ASSESSMENT AND PLAN: 1. Chronic obstructive pulmonary disease exacerbation with hypercapnia, hypoxemia. She is doing much better. She is off the BiPAP. She has nasal cannula oxygen at home. 2. Possible healthcare-associated pneumonia, left lower lobe. Chest x-ray: I do not see definitive infiltrate there. She is better. 3. History of congestive heart failure. Volume status looks better. 4. She has left ventricular ejection fraction of 46%, and no sign of active cardiac ischemia. 5. Obstructive sleep apnea. 6. Paroxysmal atrial fibrillation, which rate is controlled. So we will begin physical therapy, get her up and will get her Leary catheter out. cc: MD Prince Koehler MD
--- NOTE | 2019-07-24 14:19 | CARDIOLOGY PROGRESS NOTE ---
DATE: 07/24/2019 CHIEF COMPLAINT: Shortness of breath. SUBJECTIVE: Ms. Gregory is feeling better. She still has swelling of her legs. She is feeling less dismayed. She has been transferred to the medical floor. OBJECTIVE: Vital Signs: Blood pressure today is 119/75, pulse 90, temperature 97.4, and respirations 17. General: She is awake, alert, and follows commands. HEENT: Unremarkable. Chest: Diminished breath sounds at the bases. Cardiovascular: Heart sounds are regular and rhythmic. I do not hear any obvious gallop or murmur. Abdomen: Obese and nontender. Extremities: The extremities show trace edema. Neurological: Follows commands and moves all extremities. DIAGNOSTIC DATA: EKG from 07/19/2019 shows sinus rhythm with an inferior scar and minor nonspecific ST change. Most recent blood work: Sodium is 148, potassium 3.9, BUN 77, creatinine 1.1. Her proBNP was 14,478. IMPRESSION: 1. Patient who presented with recurrent dyspnea and pulmonary edema. Chest x-ray initially showed coarse infiltrates bilaterally. 2. Patient with diffuse 3 vessel coronary artery disease and positive troponin suggesting a non-ST myocardial infarction. 3. Abnormal myocardial perfusion stress test as of 06/21/2019. Mostly showing scar findings. 4. Hypoxemic respiratory failure although at the time of admission her initial blood gas showed a CO2 of 64. 5. Anemia. 6. Prerenal azotemia. RECOMMENDATIONS: At this time we will continue to follow her hospital course. I am going to request a followup echocardiogram. We have not done one in just about a year. The last echo was done according to records back in January of 2019. We will advise for a followup. Further advise will be forthcoming. cc: MD Prince Patel MD
[2019-07-24] MEDS: VANCOMYCIN 1,100 MG in NS 250 ML IV SCH (15:11)
--- NOTE | 2019-07-24 18:26 | PULMONOLOGY PROGRESS NOTE ---
DATE: 07/24/2019 SUBJECTIVE: Ms Gregory states she is feeling better. She feels less short of breath. OBJECTIVE: Vital Signs: Blood pressure is 110/54, heart rate of 85, respirations 18, temperature 97.4 degrees oral with O2 saturations 99 to 100 on 4 L nasal cannula. Cardiovascular: Regular rate and rhythm. S1 and S2 appreciated. No obvious gallop or murmur. Calves are nontender bilateral with lower extremities with trace edema. Pulmonary: Breath sounds are diminished throughout. Chest rises and falls symmetric with respiration. Chest wall is nontender to palpation. Gastrointestinal: Abdomen soft, nontender, nondistended with bowel sounds in all 4 quadrants. Neurologic: She is alert and oriented. LABS: WBC is 5 with hemoglobin 8.6, hematocrit 29.5 and platelets of 171,000. Sodium 148, potassium 3.9, BUN 77, creatinine 1.1 with glucose 148. Chest x-ray revealed cardiomegaly. There may be interstitial pulmonary edema, stable chest. ASSESSMENT AND PLAN: 1. Acute on chronic hypoxemic hypercapnic respiratory failure. Patient is maintaining saturations 99 to 100 on 4 L nasal cannula. She states that she feels better. Will continue with supplemental oxygen. 2. Possible healthcare associated pneumonia left lower lobe. Continue cefepime and vancomycin. 3. Congestive heart failure with elevated proBNP and pulmonary edema. We will continue IV diuresis. Cardiology is following. 4. Chronic obstructive pulmonary disease exacerbation. Continue bronchodilators with Solu- Medrol. 5. History of obstructive sleep apnea. Patient is noncompliant with CPAP at home. 6. Paroxysmal atrial fibrillation. 7. Plan was discussed with Dr. Bowens. Dictated by RALPH Lugo for Indra Bowens MD cc: RALPH Lugo MD Clement Okinedo, MD
[2019-07-24] MEDS: PROTONIX IV SCH (21:54)
[2019-07-24] MEDS: SODIUM CHLORIDE 0.9% INJ SCH (21:54)
[2019-07-24] MEDS: LIPITOR PO SCH (21:55)
[2019-07-25] MEDS: ABREVA CREAM TOP SCH ×2 (02:28→11:04)
[2019-07-25] MEDS: XOPENEX NEB INH SCH ×3 (02:53→11:51)
[2019-07-25] MEDS: ATROVENT NEB INH SCH ×3 (02:54→11:51)
[2019-07-25] MEDS: NORCO-5 PO PRN ×2 (04:02→11:05)
[2019-07-25] MEDS: SOLU-MEDROL IV SCH (06:35)
[2019-07-25] MEDS: HUMULIN R SUBQ SCH ×2 (06:35→11:07)
[2019-07-25 07:27] LABS: BASO# 0.01 X1000 (0.0-0.2); BASO% 0.2 % (0.0-0.8); HEMATOCRIT 30.3 % (37.0-47.0); HEMOGLOBIN 8.9 g/dL (12.0-16.0); IMM GRAN# 0.04 X1000 (0.0-0.04); IMM GRAN% 0.6 % (0.0-0.5); LYMPH# 0.41 X1000 (1.2-3.4); LYMPH% 6.5 % (20.5-51.1); MCH 24.4 PG (27-31); MCHC 29.4 g/dL (33-37); MONO# 0.25 X1000 (0.11-0.59); MPV 13.2 FL (7.4-10.4); NEUT# 5.57 X1000 (1.4-6.5); NEUT% 88.7 % (42.2-75.2); PLT 177 X1000 (130-400); RBC 3.65 XMIL (4.2-5.4); RDW 19.7 % (11.5-14.5); WBC 6.28 X1000 (4.8-10.8)
--- NOTE | 2019-07-25 07:36 | Diag Imaging Result Doc PS360 ---
EXAM: CHEST-1 VIEW 07/25/2019 HISTORY: pneumonia TECHNIQUE: Erect AP portable at 0620 COMMENT: Considering differences in inspiration and technique are has been no significant change since 07/24/2019. The patient is rotated slightly to the right. IMPRESSION: Stable chest. Electronically signed by Rubén Leahy 07/25/2019 7:33 AM
[2019-07-25 07:55] LABS: CALCIUM 8.5 mg/dL (8.8-10.2); CREATININE 1.2 mg/dL (0.5-0.9)
--- NOTE | 2019-07-25 08:34 | ECHO REPORT ---
ORDER DATE: 07/24/2019 INTERPRETING PHYSICIAN: Dr. Sanz REQUESTING PHYSICIAN: CLINICAL INDICATIONS: This is a 58-year-old female with mitral valve disease, hypertension, coronary heart disease, recurrent CHF, pulmonary edema. M-MODE MEASUREMENTS: Right ventricle: cm. Left ventricle end diastole: 4.2 cm. Left ventricle end systole: 3.7 cm. Posterior wall: 1.0 cm. Interventricular septum: 1.1 cm. Left atrium: 4.7 cm. Aortic root: 2.7 cm. SUMMARY OF 2-DIMENSIONAL IMAGIN. The left ventricular chamber appears to be enlarged. Left ventricular systolic function is moderately impaired. Global ejection fraction is estimated at 38%. 2. Optison was added to optimize visualization of endocardium. 3. The distal lateral wall appears to be severely impaired. Also the inferior wall and the apical lateral segment appear to be impaired. That would suggest coronary heart disease. 4. The mitral valve is thickened, and it shows some restricted opening. 5. There is mild degree of mitral stenosis. Maximum gradient is 13 mm, mean gradient is 6 mm. 6. Color flow mapping of mitral valve showed moderately severe degree of regurgitation. The mitral valve is abnormal. 7. Tricuspid valve showed mild degree of regurgitation. 8. Inferior vena cava is mildly enlarged. 9. Pulmonary pressure is estimated at 46 mmHg. 10.The left atrium is moderate enlarged. 11.The aortic valve shows sclerosis of the cusps. There is no stenosis. 12.Maximum gradient across the aortic valve is 10 mm, mean gradient is 6 mm. 13.The right-sided chambers do not appear to be significantly enlarged. 14.There is no pericardial effusion, mass or thrombus. 15.Inferior vena cava is somewhat enlarged. 16.The pulmonic valve was unremarkable. Clinical correlation is recommended. cc: MD Kirk Patel MD Clement Okinedo, MD
[2019-07-25 08:46] VITALS: BP 121/62
[2019-07-25 08:57] LABS: ANISOCYTOSIS 2+; HYPOCHROM 1+; LYMPHS 4 % (21-51); MONO 2 % (1-9); SEGS 94 % (42-75)
--- NOTE | 2019-07-25 10:23 | DISCHARGE SUMMARY ---
ADMISSION DATE: 07/19/2019 DISCHARGE DATE: 07/25/2019 HISTORY AND HOSPITAL COURSE: She is followed by [facility] Balderrama. She presented with shortness of breath on 07/19/2019. She is well known to our service. She has a history of COPD and congestive heart failure. She is on fairly high doses of benzodiazepine, Klonopin, and pain medications, opioid. She experienced shortness of breath and was brought to EMS, was noted be unable to tolerate BiPAP en route. When she got to the ER, the patient could not talk and was lethargic and hypoxic, so she was intubated, placed on mechanical ventilation. They were able to wean her off the ventilator fairly quickly. She did have some bleeding in the oropharynx from her mouth, and we stopped her Plavix. She has a history of acute systolic congestive heart failure. She has a history of paroxysmal atrial fibrillation. Her troponins were elevated. It does not appear that she had a non ST-elevated myocardial infarction; rather, it is probably supply demand mismatch. She was extubated from the ventilator, and she wanted to go back on her pain medicine. We did this at about 1/4 of the dose that she was taking as an outpatient. Her chest x-ray was clear. Pulmonary was following. She had acute on chronic hypoxemic hypercapnic respiratory failure, and there is possible associated pneumonia, although there is no infiltrate that grew out. I do not think she had pneumonia. She has congestive heart failure. She had an elevated proBNP and some pulmonary edema, and this was diuresed. History also of obstructive sleep apnea, paroxysmal atrial fibrillation. She wanted to go home on 07/25/2019. DISCHARGE MEDICATIONS: Will let her go on Lipitor 40 mg at bedtime, Coreg 25 mg every a.m. and 12.5 mg in the evening. I have cut her Klonopin down to 0.5 mg p.o. b.i.d. We have held her Plavix, but I think she can go back on her Plavix 75 mg a day, and she takes Lasix, I think, at home. I have given her some [place] 5s to have every 6 hours p.r.n. pain. She also has oxygen at home. She has her DuoNebs and albuterol inhaler. She takes Lasix 120 mg daily, and she has Protonix 40 mg a day, spironolactone 25 mg a day. She takes Zanaflex 4 mg p.o. b.i.d. p.r.n., and she is on Coumadin 2.5 at bedtime and she also has 5 mg that was done there. Her ProTime was 23 on 07/21/2019 while she was in the hospital. We did not have her on Coumadin, so will see if we can start her back on her maintenance dose. cc: MD Prince Koehler MD
[2019-07-25] MEDS: MAXIPIME 2 GM/NS 2 GM/100 ML IVPB IV SCH (10:59)
[2019-07-25] MEDS: LASIX IV SCH (11:00)
[2019-07-25] MEDS: COREG PO SCH (11:06)
== END 2019-07-25 12:44 | disposition home or self-care (01) | DRG 208 ==
LOC: ED 17:49 → SUATTDRO 21:19 → ICU 21:19 → 1N 07-23 18:28
PROVIDERS: ADMIT Internal Medicine; ATTEND Emergency Medicine

== ENCOUNTER 2019-08-11 15:34 | Inpatient (IN) ==
[2019-08-11] MEDS ORDERED: NORCURON ONE (15:41)
[2019-08-11] MEDS ORDERED: VERSED ONE (15:41)
[2019-08-11] MEDS ORDERED: QUELICIN ONE (15:41)
[2019-08-11] MEDS ORDERED: AMIDATE ONE (15:41)
[2019-08-11] MEDS ORDERED: NS 1,000 ML IV ONE ×3 (15:48→15:51)
[2019-08-11] MEDS ORDERED: QUELICIN IV ONE (15:48)
[2019-08-11] MEDS ORDERED: AMIDATE IV ONE (15:48)
[2019-08-11] MEDS ORDERED: ZOSYN 4.5 GM in NS 100 ML IV ONE (15:50)
[2019-08-11] MEDS ORDERED: DUONEB (A & A) INH ONE (15:51)
[2019-08-11] MEDS ORDERED: SOLU-CORTEF IV ONE (15:51)
[2019-08-11] MEDS ORDERED: VANCOMYCIN 1 GM/NS 1 GM/250 ML IVPB IV ONE (15:51)
[2019-08-11] MEDS ORDERED: SOLU-MEDROL IV ONE (15:51)
[2019-08-11] MEDS ORDERED: DIPRIVAN 1% 1,000 MG/100 ML BOTTLE IV SCH (16:00)
--- NOTE | 2019-08-11 16:30 | EKG Report ---
Test Performed on : 08/11/2019 4:17:58 PM Test Reason : resp failure Blood Pressure : / mmHG Vent. Rate : 103 BPM Atrial Rate : 103 BPM P-R Int : 136 ms QRS Dur : 094 ms QT Int : 332 ms P-R-T Axes : 090 102 -38 degrees QTc Int : 434 ms Suspect arm lead reversal, interpretation assumes no reversal Sinus tachycardia. Possible Left atrial enlargement Lateral infarct , age undetermined Possible Inferior infarct , age undetermined Abnormal ECG No previous ECGs available Unconfirmed Result
[2019-08-11 16:37] LABS: BASO# 0.07 X1000 (0.0-0.2); BASO% 0.6 % (0.0-0.8); EOS# 0.07 X1000 (0.0-0.7); EOS% 0.6 % (0.0-10.0); HEMATOCRIT 37.8 % (37.0-47.0); HEMOGLOBIN 10.2 g/dL (12.0-16.0); IMM GRAN# 0.03 X1000 (0.0-0.04); IMM GRAN% 0.3 % (0.0-0.5); LYMPH# 1.18 X1000 (1.2-3.4); LYMPH% 10.8 % (20.5-51.1); MCH 25.1 PG (27-31); MCV 92.9 FL (81-99); MONO# 1.05 X1000 (0.11-0.59); MONO% 9.6 % (1.7-9.3); MPV 11.6 FL (7.4-10.4); NEUT# 8.51 X1000 (1.4-6.5); NEUT% 78.1 % (42.2-75.2); PLT 254 X1000 (130-400); RBC 4.07 XMIL (4.2-5.4); RDW 24.2 % (11.5-14.5); WBC 10.91 X1000 (4.8-10.8)
[2019-08-11 16:38] LABS: ALLEN TEST NO; BLOOD TYPE ARTERIAL; METHB 0.4 % (0.0-1.5); O2(CT) 12.7 mL/dL (15.0-23.0); O2HB 92.7 % (95.0-99.0); PO2(98.6) 72 mmHg (60-100); SAMPLE BLOOD; SAO2 96.8 % (95.0-100.0); SRATE 14 BPM; THB 9.7 g/dL (11.5-17.4); TVOL 500 mL; pH(98.6) 7.37 (7.35-7.45)
[2019-08-11 16:40] LABS: MODALITY VENTILATOR; PCO2(98.6) 52 mmHg (35-45)
[2019-08-11 16:44] LABS: INR 3.17; PROTIME 33.5 Seconds (11.0-16.0); PTT 39.9 Seconds (22.3-41.8)
--- NOTE | 2019-08-11 16:49 | Diag Imaging Result Doc PS360 ---
EXAM: CHEST-1 VIEW INDICATION: intubation TECHNIQUE: One view COMPARISON: None. FINDINGS: The newly placed ET tube projects over the trachea and above the noah at about the T4 level. The newly placed feeding tube eject well below the diaphragm and is assumed to be in the lumen of the stomach in the expected position. There are increased interstitial markings with a basilar predominance suggesting pulmonary edema bilaterally. There is suggestion of pulmonary venous congestion. At least no large pleural effusion can be identified. There is no evidence of pneumothorax. There is cardiomegaly. IMPRESSION: 1.Newly placed ET tube and feeding tube as described. 2.Bilateral infiltrates with a basilar predominance most compatible with pulmonary edema. Electronically signed by Jose Escoto 08/11/2019 4:46 PM
[2019-08-11 17:08] LABS: URINE SOURCE CATH
--- NOTE | 2019-08-11 17:25 | PROVIDER DOCUMENTATION ---
This chart was entered by Bernice Duff Scribe, acting as scribe for Rafael Sandoval MD. HPI-Respiratory General - General Stated Complaint: respiratory distress Time Seen by Provider: 08/11/19 15:47 Source: EMS Allergies/Adverse Reactions: Patient Allergies Allergy/AdvReac Type Severity Reaction Status Date / Time levofloxacin [From Levaquin] Allergy Unknown Verified 08/11/19 16:15 NSAIDS (Non-Steroidal Allergy Unknown Verified 08/11/19 16:15 Anti-Inflamma - History of Present Illness-Resp Nature of Presenting Problem: Patient is a 58 y/o female who presents with EMS today c/o respiratory distress. EMS reports that upon arrival to scene, patient was in respiratory distress. Patient was lethargic but could respond to some commands and requested to be bagged. Patient was recently admitted and had to be ventilated during admission. Patient has known COPD. Patient had a breathing treatment with EMS en route to ER. Upon arrival, patient is lethargic but follows commands but is nonverbal. Denies all other signs/symptoms. Onset/Duration: reports: just prior to arrival Timing: reports: getting worse Episode Frequency: frequent episodes Similar Symptoms Previously?: Yes Recently seen or treated by another doctor?: Yes (recent hospital admission) Review of Systems - Adult - REVIEW OF SYSTEMS - ADULT ROS:: unobtainable per condition Constitutional: reports: see HPI Past History - Adult - PAST MEDICAL HISTORY-ADULT Review of Records: reports: Old Records Reviewed, Nursing Assessment Review, Medications Reviewed, Social history reviewed & non-contributory. Respiratory: reports: COPD Physical Exam-General - PHYSICAL EXAM-ADULT Initial Vital Signs Reviewed: Yes - CONSTITUTIONAL General Appearance: moderate distress, lethargic - EYES Eyes: PERRL/EOMI, pink conjunctivae - HEAD, EARS, NOSE, MOUTH & THROAT HENMT: normocephalic/atraumatic, moist mucous membranes - NECK Neck: full range of motion - RESPIRATORY Respiratory: respiratory distress (moderate to severe), rhonchi (in all lung f ields), increased rate, other (poor air movement, tight breath sounds) - CARDIOVASCULAR Cardiovascular: regular rate, rhythm, tachycardia - GASTROINTESTINAL (ABDOMEN) Abdominal Exam: non tender, soft, other (ecchymosis on abdomen secondary to subcutaneous medication administration) - LYMPHATIC Lymphatic: no adenopathy - MUSCULOSKELETAL Back Exam: normal inspection Extremity: normal range of motion, normal gait, normal inspection, pedal edema (4+) - SKIN Integumentary: normal color, normal turgor, warm/dry - NEUROLOGIC Neurologic: grossly normal, no motor/sensory deficits - PSYCHIATRIC Psych/Mental Status: normal mood/affect, normal thought content, normal thought process Progress - PLAN OF CARE/RESULTS Progress/Plan/Lab Results: Vital Signs - 8 hr 08/11/19 15:35 08/11/19 16:41 08/11/19 17:00 Temperature 97.9 F Pulse Rate 98 H 104 H Respiratory Rate 18 22 18 Blood Pressure 116/82 O2 Sat by Pulse Oximetry 98 98 08/11/19 17:10 08/11/19 17:11 Temperature Pulse Rate 83 Respiratory Rate 18 18 Blood Pressure 118/71 O2 Sat by Pulse Oximetry 100 Laboratory Results - last 24 hr 08/11/19 08/11/19 08/11/19 15:44 15:44 15:44 WBC 10.91 H RBC 4.07 L Hgb 10.2 L Hct 37.8 MCV 92.9 MCH 25.1 L MCHC 27.0 L RDW Std Deviation 24.2 H Plt Count 254 MPV 11.6 H Immature Gran % (Auto) 0.3 Neut % (Auto) 78.1 H Lymph % (Auto) 10.8 L [place] % (Auto) 9.6 H Eos % (Auto) 0.6 Baso % (Auto) 0.6 Immature Gran # (Auto) 0.03 Neut # (Auto) 8.51 H Lymph # (Auto) 1.18 L [place] # (Auto) 1.05 H Eos # (Auto) 0.07 Baso # (Auto) 0.07 PT 33.5 H INR 3.17 PTT (Actin FS) 39.9 Specimen Type Sample Site pH pCO2 pO2 HCO3 Base Excess Oxyhemoglobin ABG O2 Sat (Calculated) ABG O2 Saturation ABG Carboxyhemoglobin ABG Methemoglobin Kirk Test A-a O2 Difference Total Hemoglobin Lactate Blood Gas Modality Spontaneous Rate FiO2 % Tidal Volume PEEP Troponin T High Sens 26 H Plasma Lactate Urine Source 08/11/19 08/11/19 08/11/19 15:44 16:33 17:00 WBC RBC Hgb Hct MCV MCH MCHC RDW Std Deviation Plt Count MPV Immature Gran % (Auto) Neut % (Auto) Lymph % (Auto) [place] % (Auto) Eos % (Auto) Baso % (Auto) Immature Gran # (Auto) Neut # (Auto) Lymph # (Auto) [place] # (Auto) Eos # (Auto) Baso # (Auto) PT INR PTT (Actin FS) Specimen Type ARTERIAL Sample Site L BRACHIAL pH 7.37 pCO2 52 H* pO2 72 HCO3 28.0 H Base Excess 4.0 H Oxyhemoglobin 92.7 L ABG O2 Sat (Calculated) 12.7 L ABG O2 Saturation 96.8 ABG Carboxyhemoglobin 3.70 H ABG Methemoglobin 0.4 Kirk Test NO A-a O2 Difference 576.0 Total Hemoglobin 9.7 L Lactate 2.50 H Blood Gas Modality VENTILATOR Spontaneous Rate 14 FiO2 % 100.0 Tidal Volume 500 PEEP 5.0 Troponin T High Sens Plasma Lactate 4.3 H* Urine Source CATH Orders Category Date Time Status Cardiac Monitoring DIRECTED Care 08/11/19 15:47 Active IV Insertion ORDERED Care 08/11/19 15:47 Completed NG/OG/Feeding Tube Insertion ORDERED Care 08/11/19 15:49 Active Nursing- Obtain EKG once Care 08/11/19 15:48 Active CHEST-1 VIEW [RAD] Stat Exams 08/11/19 15:47 Completed ABG [RESP] Routine Lab 08/11/19 16:33 Completed BLOOD CULTURE [BLDCUL] Stat Lab 08/11/19 16:41 Received CBC WITH DIFF [HEME] Stat Lab 08/11/19 15:44 Completed CK PROFILE [SP CHEM] Stat Lab 08/11/19 15:44 Received COMPREHENSIVE METABOLIC PANEL [CHEM] Stat Lab 08/11/19 15:44 Received LACTATE, PLASMA [CHEM] Lab 08/11/19 19:00 Uncollected LACTATE, PLASMA [CHEM] Lab 08/11/19 22:00 Uncollected LACTATE, PLASMA [CHEM] Q3H Lab 08/11/19 15:44 Completed MAGNESIUM [CHEM] Stat Lab 08/11/19 15:44 Received PRO B-NATRIURETIC PEPTIDE Stat Lab 08/11/19 15:44 Received PROTIME WITH INR [COAG] Stat Lab 08/11/19 15:44 Completed PTT [COAG] Stat Lab 08/11/19 15:44 Completed TROPONIN T HIGH SENSITIVITY Stat Lab 08/11/19 15:44 Completed URINALYSIS W/POSS RFLX CULT [URINALYSIS] Stat Lab 08/11/19 17:00 Results 0.9% Sodium Chloride Inj [Ns] 1,000 ml Med 08/11/19 15:48 Discontinued IV 999 mls/hr 0.9% Sodium Chloride Inj [Ns] 1,000 ml Med 08/11/19 15:48 Discontinued IV 999 mls/hr 0.9% Sodium Chloride Inj [Ns] 1,000 ml Med 08/11/19 15:51 Discontinued IV 999 mls/hr Albuterol 2.5MG/Ipratrop 0.5MG [Duoneb (A & A)] Med 08/11/19 15:51 Discontinued 9 ml INH NOW ONE Etomidate [Amidate] Med 08/11/19 15:48 Discontinued 20 mg IV NOW ONE Etomidate [Amidate] Med 08/11/19 15:41 Discontinued 40 mg .ROUTE .STK-MED ONE Hydrocortisone Sod Succinate [Solu-Cortef] Med 08/11/19 15:51 Discontinued 100 mg IV NOW ONE Methylprednisolone Sod Succ [Solu-Medrol] Med 08/11/19 15:51 Discontinued 125 mg IV NOW ONE Midazolam [Versed] Med 08/11/19 15:41 Discontinued 5 mg .ROUTE .STK-MED ONE Piperacillin/Tazobactam [Zosyn] 4.5 gm Med 08/11/19 15:50 Discontinued 0.9% Sodium Chloride Inj [Ns] 100 ml IV NOW Propofol [Diprivan 1%] Med 08/11/19 16:00 Active 1,000 mg in 100 ml IV As Directed mls/hr Succinylcholine [Quelicin] Med 08/11/19 15:48 Discontinued 100 mg IV NOW ONE Succinylcholine [Quelicin] Med 08/11/19 15:41 Discontinued 200 mg .ROUTE .STK-MED ONE Vancomycin 1 gm/Ns Med 08/11/19 15:51 Discontinued 1 gm in 250 ml IV NOW Vecuronium [Norcuron] Med 08/11/19 15:41 Discontinued 10 mg .ROUTE .STK-MED ONE Aerosol Treatments Routine Oth 08/11/19 15:51 Completed Aerosol Treatments Stat Oth 08/11/19 15:51 Completed Oxygen Device Stat Oth 08/11/19 15:47 Completed Ventilator Order Stat Oth 08/11/19 16:34 Active EKG [EKG] Stat Ther 08/11/19 15:48 Draft Result Diagrams: 08/11/19 15:44 - REASSESSMENT Reassessment #1 Time Reassessed: 17:15 Status: improving Reassessment #2 Time Reassessed: 17:23 Status: improving (Long talk at bedside with family RE: enabling patient with cigarettes as she cannot go out to buy them on her own. Also spoke about code status, and she is currently Full Code. Lactate greater than 4 is indicative of severe sepsis/septic shock. She received 3L of NS bolus and IV Vanc/Zosyn.) - EKG 1 Time of EKG reading by physician:: 16:21 EKG Read and Signed by:: Rafael Sandoval EKG Interpretation (*Must complete 3 of following elements*): Abnormal Rate: 103 Rhythm: Sinus tachycardia QRS: other (right hemiblock, low voltage) ST Wave: non-specific ST changes - XRAY 1 XRAY Study: Chest Impression: See EMR Report (EXAM: CHEST-1 VIEW INDICATION: intubation TECHNIQUE: One view COMPARISON: None. FINDINGS: The newly placed ET tube projects over the trachea and above the noah at about the T4 level. The newly placed feeding tube eject well below the diaphragm and is assumed to be in the lumen of the stomach in the expected position. There are increased interstitial markings with a basilar predominance suggesting pulmonary edema bilaterally. There is suggestion of pulmonary venous congestion. At least no large pleural effusion can be identified. There is no evidence of pneumothorax. There is cardiomegaly. IMPRESSION: 1.Newly placed ET tube and feeding tube as andrez cribed. 2.Bilateral infiltrates with a basilar predominance most compatible with pulmonary edema. Electronically signed by Jose Escoto 08/11/2019 4:46 PM 08/11/19 1646 Interpreting Physician: Jose Escoto MD Dictated Date/Time: 08/11/19 1645 cc: Rafael Sandoval MD;) - CONSULTS/PCP/HOSPITALIST Notification #1 *Consult/PCP/Hospitalist*: RALPH Lee Time Discussed: 17:22 Consult Disposition: Will see in ED, Admit Procedures - INTUBATION Time of Intubation: 15:47 Intubation Method: orotracheal Equipment: ETT Tube Size (cm): 7.0 Pretreated with 100% Oxygen?: Yes Breath Sounds after Intubation: equal ETT Primary Tube Confirmation: Tube placement verified on XRAY Intubation Complications: no complications Procedure Comment: gave 20 mg of Atomadate at 1544 and 100 mg of succinylcholine at 1545 Departure - Departure Date of Disposition Decision: 08/11/19 Time of Disposition Decision: 17:15 DIAGNOSIS: Acute and chronic respiratory failure with hypercapnia, Severe sepsis, Tobacco use disorder, Acute exacerbation of CHF (congestive heart failure) Pulmonary edema Qualifiers: Chronicity: acute Qualified Code(s): J81.0 - Acute pulmonary edema Disposition: ADMITTED INPATIENT 09 Certified Medical Emergency: Emergent Condition: Critical Referrals and Follow-Ups: RICARDO TORRES MD [Primary Care Provider] - - Critical Care Note This patient required my direct & personal management of CC.: Yes Total Time (mins): 55 Critical Care Statement: This patient required my direct personal management to treat or rule out processes, the absence of which, could potentiallly result in sudden, clinically significant life or limb threatening deterioration. Attestation - Physician/ MANDO Attestation Patient care was provided by Advanced Practice Provider:: No The physician spent face to face time with patient:: Yes Advanced Practice Provider documentation review:: Supervising physician onsite and consulted in the evaluation and care of this patient. The physician did have a face to face encounter with the patient. This chart was documented by the indicated scribe, (Bernice Duff Scribe) and accurately reflects the services I performed and decisions made by me, Rafael Sandoval MD, as attested by the provider's signature.
[2019-08-11 17:26] LABS: AGAP 17; ALBUMIN 3.1 g/dL (3.5-5.0); ALKALINE PHOSPHATASE 136 U/L (32-104); BUN 12 mg/dL (8-22); CALCIUM 8.3 mg/dL (8.8-10.2); CHLORIDE 102 mmol/L (98-107); CK PROFILE 20 U/L (24-173); COSMO 286; CREATININE 0.9 mg/dL (0.5-0.9); ESTIMATED GFR > 60; GLUCOSE 114 mg/dL (70-104); GOT 19 U/L (10-30); GPT 14 U/L (10-36); MAGNESIUM 1.3 mg/dL (1.5-2.7); POTASSIUM 5.9 mmol/L (3.5-5.1); SODIUM 143 mmol/L (136-145); TCO2 24 mmol/L (25-35); TOTAL BILIRUBIN 1.68 mg/dL (0.20-1.00); TOTAL PROTEIN 6.1 g/dL (6.3-8.3)
--- NOTE | 2019-08-11 17:26 | SEPSIS: TISSUE PERFUSION ASSMT ---
Sepsis: Tissue Perfusion Assmt - Physical Exam Assessment Date: 08/11/19 Time Assessment Initialized: 17:25 Vital Signs: Last Vital Signs Temp 97.9 F 08/11/19 15:35 Pulse 82 08/11/19 17:20 Resp 14 08/11/19 17:20 BP 101/66 08/11/19 17:20 Pulse Ox 100 08/11/19 17:20 Height 5 ft 5 in Weight 86.183 kg Lung Sounds:: rhonchi Heart Sounds:: Regular Capillary Refill Time: Less Than 2 Seconds Peripheral Pulse Evaluation:: radial (R): 2+, radial (L): 2+ Skin Exam:: flushed, pink, turgor good - Impression Impression:: Tissue Perfusion Adequate - Plan Plan:: See Orders
[2019-08-11 17:29] LABS: BILIRUBIN URINE NEGATIVE (NEGATIVE); BLOOD URINE NEGATIVE (NEGATIVE); COLOR YELLOW; GLUCOSE URINE NEGATIVE (NEGATIVE); KETONE URINE NEGATIVE (NEGATIVE); LEUKOCYTES URINE SMALL (NEGATIVE); NITRITE URINE NEGATIVE (NEGATIVE); PH URINE 6.5; PROTEIN URINE 50 mg/dL (NEGATIVE); SP GRAVITY URINE 1.012; TURBIDITY URINE CLEAR (CLEAR); UROBILINOGEN URINE NORMAL (NORMAL)
[2019-08-11 17:31] LABS: UR EPITHELIAL CELLS <10 /HPF (<10); URINE BACTERIA NEGATIVE /HPF; URINE RBC <10 /HPF (<10)
[2019-08-11] MEDS ORDERED: ZOFRAN IV PRN (17:37)
[2019-08-11] MEDS ORDERED: MAXIPIME 2 GM/NS 2 GM/100 ML IVPB IV ONE (17:41)
[2019-08-11] MEDS ORDERED: MAXIPIME 1 GM in NS 50 ML IV SCH (17:45)
[2019-08-11] MEDS ORDERED: VANCOMYCIN IV PER PHARMACY MISC SCH (17:45)
[2019-08-11] MEDS ORDERED: SODIUM CHLORIDE 0.9% INJ SCH (17:45)
[2019-08-11] MEDS: PROTONIX IV SCH (17:57)
[2019-08-11] MEDS ORDERED: LASIX IV ONE (17:58)
[2019-08-11] MEDS: LOVENOX SUBQ SCH (18:02)
[2019-08-11] MEDS: FENTANYL 1,000 MICROGM in NS 80 ML IV SCH ×2 (18:10→23:25)
[2019-08-11] MEDS: SOLU-MEDROL IV SCH (18:53)
[2019-08-11] MEDS ORDERED: ATIVAN IV PRN (18:55)
[2019-08-11] MEDS: ATIVAN 20 MG in NS 190 ML IV SCH (20:18)
--- NOTE | 2019-08-11 20:51 | HISTORY AND PHYSICAL ---
PRIMARY CARE PHYSICIAN: Dr. Alina Balderrama. PRESENTING COMPLAINT: Shortness of breath. HISTORY OF PRESENT COMPLAINT: Ms. Gregory is a 58-year-old female, very well known, frequent flyer to the hospital. She has a history of advanced COPD, congestive heart failure, and tobacco use and abuse. Continues to use tobacco. She did have about 10 hospitalizations last year, and this is the 2nd hospitalization for this year. She normally comes in with shortness of breath. Most times, she has to be intubated and be treated in the ICU. Ms Gregory was just discharged from the hospital on the of last month after she spent about 5 days in the hospital. Currently Ms. Gregory herself is intubated. She is not able to give any history. At the bedside were the daughter and the . The tells me that Ms. Gregory has been having some difficulty breathing since this morning, and that when he went to check on her, the oxygen saturation on Ms. Gregory was 70, so he went up on her supplemental oxygen at home from 4 to 6; however, a couple minutes later Ms. Grgeory continued to show remarkable signs of distress, so she was brought into the emergency room where she had to be intubated immediately because of impending respiratory arrest. PAST MEDICAL HISTORY: 1. Advanced COPD. 2. Congestive heart failure. Ejection fraction 38% on recent echocardiogram. 3. Hypertension. 4. Atrial fibrillation. 5. Chronic opioid dependence. ALLERGIES: Levofloxacin and NSAIDs. SOCIAL HISTORY: The patient continues to be smoking. According to the , Ms. Gregory has been sneaking behind them and smoking on her own. Denies any alcohol or illicit drug use. FAMILY HISTORY: Positive for coronary artery disease. HOME MEDICATIONS: Have been reviewed from previous hospital documentations. The family did not bring home medicines. REVIEW OF SYSTEMS: Unable to obtain since Ms. Gregory is currently intubated. PHYSICAL EXAMINATION: CURRENT VITAL SIGNS: Blood pressure is 105/91, pulse 87, respirations 15, temperature 97.6. GENERAL: Ms. Gregory is a 58-year-old female. She is in bed. She is currently intubated and sedated on propofol. HEENT: Mucosa is pink and moist. Anicteric and acyanotic. Head is normocephalic nd atraumatic. NECK: Supple. RESPIRATORY: There is good air entry bilaterally. There are transmitted sounds from the ventilator. No accessory muscle use. CARDIOVASCULAR: Regular rate and rhythm. No murmurs, no rubs, no gallops. [place] beat is at the 5th intercostal space, midclavicular line. GI: Abdomen is soft. Bowel sounds present. There is an old midline surgical scar. No hepatosplenomegaly. EXTREMITIES: About 2+ pedal edema. VALIDATION CONSULTANT: Patient is currently intubated. She is on 30 mcg of propofol, and she is able to for most part respond with head nodding to some questioning. To signify that she is doing okay, when the asked her if she loved him, she nodded yes. She will redraw to painful stimulation. LABORATORY DATA: WBCs 10.91, hemoglobin 10.2, platelet count of 254. Chemistry is also reviewed. Potassium is 5.9, magnesium 1.3. Rest of chemistry is unremarkable. Patient's proBNP is 31,000. Plasma lactate is also elevated. EKG which was done early this morning showed normal sinus rhythm, no ST or T-wave abnormality. A chest x-ray is reported to have bilateral infiltrates with bibasilar predominance, most compatible with pulmonary edema. ASSESSMENT: 1. Acute hypoxemic respiratory failure. The patient has been intubated. She will be transferred to the intensive care unit. Pulmonary Medicine will be consulted. 2. Pulmonary edema with possible superimposed pneumonia. The patient will continue to be on antimicrobial coverage. Sputum culture will be done. Blood cultures have also been done. We will also do flu serologies. 3. History of congestive heart failure with possible exacerbation. The patient looks slightly volume overloaded, so we will put her on some diuretic therapy. 4. Advanced chronic obstructive pulmonary disease, possible exacerbation. We will continue with steroids, antibiotics and bronchodilation therapy. Pulmonary Medicine will be consulted. 5. History of tobacco use and abuse noted. PLAN: In general, Ms. Gregory continues to be remarkably sick. She is currently intubated. She is going to be admitted to the ICU. We will continue with the IV antibiotics, steroids, and diuretic therapy, and get Pulmonary Medicine to evaluate her. We will re-evaluate her in the morning with laboratory data and imaging data, and give further recommendations. CRITICAL CARE TIME SPENT: Forty-five minutes. cc: Davin Traylor MD
[2019-08-11] MEDS ORDERED: VANCOMYCIN 750 MG in NS 250 ML IV ONE (22:00)
[2019-08-12] MEDS: FENTANYL 1,000 MICROGM in NS 80 ML IV SCH ×5 (03:05→17:15)
[2019-08-12 04:27] LABS: ALLEN TEST YES; BLOOD TYPE ARTERIAL; HCO3-(ACT) 28.8 mmoll (20.0-26.0); METHB 0.8 % (0.0-1.5); O2(CT) 12.6 mL/dL (15.0-23.0); O2HB 95.5 % (95.0-99.0); PCO2(98.6) 45 mmHg (35-45); PO2(98.6) 84 mmHg (60-100); SAMPLE BLOOD; SAO2 98.8 % (95.0-100.0); SRATE 14 BPM; THB 9.3 g/dL (11.5-17.4); TVOL 500 mL; pH(98.6) 7.43 (7.35-7.45)
[2019-08-12 04:28] LABS: MODALITY VENTILATOR
[2019-08-12 05:00] LABS: BASO# 0.01 X1000 (0.0-0.2); BASO% 0.3 % (0.0-0.8); HEMOGLOBIN 8.7 g/dL (12.0-16.0); LYMPH# 0.32 X1000 (1.2-3.4); LYMPH% 8.1 % (20.5-51.1); MCH 25.1 PG (27-31); MCHC 27.2 g/dL (33-37); MCV 92.2 FL (81-99); MONO# 0.06 X1000 (0.11-0.59); MONO% 1.5 % (1.7-9.3); MPV 11.4 FL (7.4-10.4); NEUT# 3.58 X1000 (1.4-6.5); NEUT% 90.1 % (42.2-75.2); PLT 162 X1000 (130-400); RBC 3.47 XMIL (4.2-5.4); WBC 3.97 X1000 (4.8-10.8)
[2019-08-12] MEDS: MAXIPIME 1 GM in NS 50 ML IV SCH ×3 (05:23→18:17)
[2019-08-12] MEDS: SOLU-MEDROL IV SCH ×3 (05:23→18:16)
[2019-08-12 05:28] LABS: INR 3.01; PROTIME 32.2 Seconds (11.0-16.0)
[2019-08-12 05:30] LABS: EOS 1 % (1-10); LYMPHS 5 % (21-51); SEGS 94 % (42-75)
[2019-08-12 05:49] LABS: AGAP 13; ALB/GLOB RATIO 0.8; ALBUMIN 2.4 g/dL (3.5-5.0); ALKALINE PHOSPHATASE 103 U/L (32-104); BUN 11 mg/dL (8-22); CALCIUM 7.9 mg/dL (8.8-10.2); CHLORIDE 105 mmol/L (98-107); COSMO 289; CREATININE 0.8 mg/dL (0.5-0.9); ESTIMATED GFR > 60; GLUCOSE 119 mg/dL (70-104); GOT 14 U/L (10-30); GPT 10 U/L (10-36); MAGNESIUM 1.1 mg/dL (1.5-2.7); SODIUM 145 mmol/L (136-145); TCO2 27 mmol/L (25-35); TOTAL BILIRUBIN 0.95 mg/dL (0.20-1.00); TOTAL PROTEIN 5.3 g/dL (6.3-8.3)
[2019-08-12] MEDS: ATIVAN 20 MG in NS 190 ML IV SCH (06:30)
--- NOTE | 2019-08-12 06:47 | Diag Imaging Result Doc PS360 ---
CHEST-PORTABLE - 08/12/2019 INDICATION: sedation on Mech Vent COMPARISON: 08/11/2019 FINDINGS: Stable endotracheal tube and nasogastric tube in good position. Stable significant cardiomegaly and pulmonary vascular congestion. There is severe worsening, dense infiltrate throughout the right midlung and lung base. Stable background pulmonary edema. IMPRESSION: Severe worsening infiltrates mainly on the right side. Electronically signed by Wan Eddy 08/12/2019 6:44 AM
[2019-08-12] MEDS: LASIX IV SCH ×2 (09:36→20:16)
[2019-08-12] MEDS: DIPRIVAN 1% 1,000 MG/100 ML BOTTLE IV SCH ×2 (13:55→18:39)
[2019-08-12] MEDS ORDERED: MAGNESIUM SULFATE 2 GM/S.W.I. 2 GM/50 ML IVPB IV ONE (13:59)
--- NOTE | 2019-08-12 14:20 | PROGRESS NOTE ---
DATE: 08/12/2019 SUBJECTIVE: This morning Ms. Gregory remains fairly stable. She continues to be in the Critical Care Unit. She is currently intubated and sedated. OBJECTIVE: Vital signs: Blood pressure is 110/59, pulse of 50, respirations 14, temperature is 97.7 degrees. Patient is saturating 92%. General: Ms. Gregory is a 58-year-old, obese, female. She is in bed. She is currently intubated and sedated. HEENT: Mucosa is pink and moist. Anicteric. Acyanotic. Neck: Supple. There was no JVD. Respiratory: There is good air entry bilaterally. Some transmitted sounds from the ventilator. Cardiovascular: Regular rate and rhythm. No murmurs. GI: Abdomen is soft. There is an old midline surgical scar. There is no hepatosplenomegaly. Bowel sounds present. Extremities: About 1+ pedal edema but it looks much better. SENIOR NET ARCHITECT: Patient is intubated and sedated on Ativan and fentanyl. The pupils, however, are slightly pinpoint but they are reactive. The patient will barely move extremities to painful stimulation. The patient's I's and O's, urine output was 1,110 with a negative balance of 845. LABORATORY DATA: This morning she is slightly leukopenic and normocytic anemia with a hemoglobin of 8.7. Platelet count is fairly normal. Chemistry is also reviewed which looks all normal. Magnesium is 1.3. ProB was quite elevated. The patient's plasma lactate has normalized. IMAGING STUDIES: A chest x-ray shows worsening infiltrates, mainly in the right side. CURRENT MEDICATIONS: Include: 1. Cefepime 1 g q.8. 2. Lovenox 40 subcu every 24 hours. 3. Fentanyl drip. 4. Lasix 40 IV q.12. Methylprednisolone. 1. Vancomycin. ASSESSMENT: 1. Acute on chronic hypoxemic respiratory failure. Patient continues to be intubated, saturating fairly decently. Pulmonary Medicine has been consulted. 2. Pulmonary edema with possible superimposed pneumonia. The patient is on antimicrobial coverage as well as diuretic therapy. 3. History of congestive heart failure with ejection fraction of about 46% on myocardial perfusion scan June of last year. Echocardiogram which was done on the of this month did show an ejection fraction of 38%. We will continue with the diuretic therapy as well as the patient's home medications. 4. Fluid overload. Most likely from congestive heart failure. 5. Advanced chronic obstructive pulmonary disease with exacerbation. Patient is on standard of care. 6. History of tobacco use and abuse, noted. 7. Electrolyte abnormality including profound hypomagnesemia will be replaced. PLAN: So in general, Ms. Gregory continues to be critically sick, intubated, sedated on Ativan and fentanyl. Pulmonology has been consulted today. A chest x-ray looks quite worse than yesterday. We will continue with the vent support, antibiotics, and diuretic therapy. We will be pending further recommendations from Pulmonary Medicine. Critical Time: 45 minutes cc: Davin Traylor MD MTDD
[2019-08-12] MEDS: DUONEB (A & A) INH SCH ×3 (15:36→23:19)
[2019-08-12] MEDS: LOVENOX SUBQ SCH (18:16)
[2019-08-12] MEDS: PROTONIX IV SCH (18:16)
[2019-08-12] MEDS: VANCOMYCIN 1,550 MG in NS 250 ML IV SCH (21:47)
--- NOTE | 2019-08-12 23:05 | CONSULTATION ---
DATE OF CONSULTATION: 08/12/2019 CHIEF COMPLAINT: Shortness of breath. HISTORY OF PRESENT ILLNESS: This is a 58-year-old female who has had multiple hospital admissions to [facility]. Recent chest x-ray revealed severe worsening dense infiltrates throughout the right mid lung and lung base. Stable background pulmonary edema. She is currently on mechanical ventilatory support. PAST MEDICAL HISTORY: 1. Advanced COPD. 2. Congestive heart failure. 3. Hypertension. 4. Atrial fibrillation. 5. Chronic opioid dependence. ALLERGIES: Levaquin and NSAIDs. SOCIAL HISTORY: Continues to smoke. Denies alcohol or illicit drug use. FAMILY HISTORY: Coronary artery disease. HOME MEDICATIONS: Please see home reconciliation list. REVIEW OF SYSTEMS: A 10-point review of systems was conducted and the pertinent is listed within the HPI, otherwise noncontributory. PHYSICAL EXAMINATION: VITAL SIGNS: Blood pressure 134/67, respiratory rate 19, pulse rate 78, O2 saturation 95 with mechanical ventilation in place. HEENT: Mucosa pink and moist. Anicteric and acyanotic. Head is normocephalic and atraumatic. NECK: Supple. RESPIRATORY: Decreased air entry bilaterally. CARDIOVASCULAR: Regular rate and rhythm. No murmurs, rubs or gallops. GASTROINTESTINAL: Abdomen soft. Bowel sounds present in all 4 quadrants. EXTREMITIES: Two-plus pitting pedal edema. LABORATORY DATA: White blood cells 3.97. Red blood cells 3.47. Hemoglobin 8.7. Hematocrit 32.0. PT 32.2. INR 3.01. Blood gases: pH 7.43, PCO2 of 45, PO2 of 84, HCO3 of 28.8, oxyhemoglobin 95.5. Sodium 145. Potassium 4.0. Chloride 105. Carbon dioxide 27. Glucose 119. Calcium 7.9. AST 14. ALT 10. Magnesium 1.1. Total protein 5.3. Albumin 2.4. TSH 2.06. DIAGNOSTIC DATA: Mentioned in HPI. ASSESSMENT AND PLAN: 1. Acute hypoxemic respiratory failure. Patient has been intubated. We will continue to monitor with ABGs and titrate according to patient response and protocols. 2. Pneumonia with stable background pulmonary edema. Continue antibiotics. 3. Chronic obstructive pulmonary disease. Continue DuoNeb every 4 hours scheduled and steroids. 4. Congestive heart failure. She is on Lasix 40 mg IV every 12 hours. 5. Continue gastrointestinal prophylaxis with Protonix 40 mg intravenous every 24 hours scheduled. 6. Continue deep venous thrombosis prophylaxis with Lovenox 40 mg subcutaneous every 24 hours. TIME: Spent 35 minutes on this patient. Thank you for the courtesy of this consult. Dictated by RALPH Riojas for Ariela Rivas MD cc: RALPH Riojas MD
[2019-08-13] MEDS: FENTANYL 1,000 MICROGM in NS 80 ML IV SCH ×4 (00:15→18:08)
[2019-08-13] MEDS: SOLU-MEDROL IV SCH ×3 (02:05→18:07)
[2019-08-13] MEDS: MAXIPIME 1 GM in NS 50 ML IV SCH ×3 (02:05→18:07)
[2019-08-13] MEDS: DUONEB (A & A) INH SCH ×6 (03:39→23:26)
[2019-08-13] MEDS: DIPRIVAN 1% 1,000 MG/100 ML BOTTLE IV SCH ×4 (04:09→20:39)
[2019-08-13 05:05] LABS: ALLEN TEST YES; BE 6.4 mmoll (-3.0-3.0); BLOOD TYPE ARTERIAL; HCO3-(ACT) 29.8 mmoll (20.0-26.0); METHB 0.6 % (0.0-1.5); O2(CT) 14.4 mL/dL (15.0-23.0); O2HB 91.6 % (95.0-99.0); PCO2(98.6) 41 mmHg (35-45); PO2(98.6) 60 mmHg (60-100); SAMPLE BLOOD; SAO2 94.1 % (95.0-100.0); SRATE 14 BPM; THB 11.2 g/dL (11.5-17.4); TVOL 560 mL; pH(98.6) 7.48 (7.35-7.45)
[2019-08-13 05:07] LABS: MODALITY VENTILATOR
[2019-08-13 06:37] LABS: HEMATOCRIT 33.3 % (37.0-47.0); HEMOGLOBIN 9.3 g/dL (12.0-16.0); LYMPH# 0.25 X1000 (1.2-3.4); LYMPH% 6.7 % (20.5-51.1); MCH 24.8 PG (27-31); MCHC 27.9 g/dL (33-37); MCV 88.8 FL (81-99); MONO# 0.22 X1000 (0.11-0.59); MONO% 5.9 % (1.7-9.3); MPV 11.6 FL (7.4-10.4); NEUT# 3.28 X1000 (1.4-6.5); NEUT% 87.4 % (42.2-75.2); PLT 165 X1000 (130-400); RBC 3.75 XMIL (4.2-5.4); WBC 3.75 X1000 (4.8-10.8)
--- NOTE | 2019-08-13 06:38 | Diag Imaging Result Doc PS360 ---
CHEST-PORTABLE - 08/13/2019 INDICATION: sedation on Mech Vent COMPARISON: 08/12/2019 FINDINGS: Support tubes are stable and in good position. There has been significant improvement of the infiltrate throughout the right lung. Stable opacification at the left lower lobe consistent with any combination of atelectasis, effusion, or infiltrate. No new infiltrates. Background pulmonary edema has decreased. Heart size remains stable. IMPRESSION: Significant improvement from prior. Electronically signed by Wan Eddy 08/13/2019 6:36 AM
[2019-08-13 07:01] LABS: AGAP 13; ALB/GLOB RATIO 0.8; ALBUMIN 2.5 g/dL (3.5-5.0); ALKALINE PHOSPHATASE 89 U/L (32-104); BUN 18 mg/dL (8-22); CALCIUM 7.6 mg/dL (8.8-10.2); CHLORIDE 101 mmol/L (98-107); COSMO 289; CREATININE 0.9 mg/dL (0.5-0.9); ESTIMATED GFR > 60; GLUCOSE 129 mg/dL (70-104); GOT 24 U/L (10-30); GPT 10 U/L (10-36); POTASSIUM 3.3 mmol/L (3.5-5.1); SODIUM 143 mmol/L (136-145); TCO2 29 mmol/L (25-35); TOTAL BILIRUBIN 0.82 mg/dL (0.20-1.00); TOTAL PROTEIN 5.7 g/dL (6.3-8.3)
[2019-08-13] MEDS: LASIX IV SCH ×2 (09:46→20:39)
--- NOTE | 2019-08-13 15:02 | PROGRESS NOTE ---
DATE: 08/13/2019 SUBJECTIVE: I have seen and examined Ms. Gregory today. She continues to be in the ICU, intubated and sedated on propofol as well as fentanyl. OBJECTIVE: Vital signs: Blood pressure is 101/67, pulse 114, respiration is 18, temperature 97.0 degrees. General: Ms. Gregory is a 58-year-old female. She is in bed. She is currently intubated. Seems to be synchronizing well with the ventilator. Neck: Supple. No JVD. Respiratory System: Good air entry bilateral. Some transmitted sounds from the ventilator. Cardiovascular: Regular rate and rhythm. No murmurs, no rubs, no gallops. Abdomen: Soft. There is an old infraumbilical surgical scar. There is no hepatosplenomegaly. Bowel sounds present. Extremities: About 1+ pedal edema. MEDICAL EDUCATOR: Patient will grimace to painful stimulation. I'S AND O'S: Urine output was 2100. The patient is currently negative balance of 2450. A chest x-ray this morning shows significant improvement from prior. LABORATORY DATA: Reviewed. WBC 3.75, hemoglobin is 9.3, platelet count 165,000. Chemistry reviewed, is completely unremarkable except for potassium of 3.3. CURRENT MEDICATIONS: Have all been reviewed, no changes. ASSESSMENT: 1. Acute on chronic hypoxemic respiratory failure. The patient is currently intubated. Today is day 2 under the vent. 2. Pulmonary edema with possible superimposed pneumonia. The patient is on antimicrobial therapy and diuretics. 3. History of congestive heart failure, ejection fraction of 38% on echocardiogram of the 18th of last month. 4. Fluid overload, presumably from congestive heart failure. 5. Advanced chronic obstructive pulmonary disease with exacerbation. Patient is on standard of therapy. 6. History of tobacco use and abuse prior to hospitalization. 7. Electrolyte abnormality including hypomagnesemia, hypokalemia. We will continue to replace. 8. Multiple hospitalizations. So in general, I think Ms. Gregory is fairly stable. She continues to be under the ventilator, today is day 2. We will re-evaluate her in the morning. If she still needs to be on the ventilator, we will address her nutritional needs with NG tube feedings. cc: Davin Traylor MD
[2019-08-13] MEDS: PROTONIX IV SCH (18:07)
[2019-08-13] MEDS: LOVENOX SUBQ SCH (18:07)
[2019-08-13] MEDS: VANCOMYCIN 1,550 MG in NS 250 ML IV SCH (22:07)
--- NOTE | 2019-08-13 23:22 | PROGRESS NOTE ---
DATE: 08/13/2019 We appreciated progress of care, complications, change in diagnosis and instructions to patient. SUBJECTIVE: We note the level of consciousness, bed/chair position, family presence if any, level of lethargy, feelings of symptoms and changes from baseline condition/symptoms. This is a 58-year- old female lying in bed with ventilatory support. Family member at bedside. Appears in no acute distress. OBJECTIVE: Vital Signs: Temperature 97.7, pulse 74, respirations 14, blood pressure 104/56, O2 saturation 95 per mechanical ventilation. We reviewed the EMR current values for pulse rate, blood pressure, and respiratory rate and pulse oximetry. Also noted other values and trends if present. General: This is a 58-year-old female on ventilatory support. Family member at bedside. HEENT: Head is atraumatic, normocephalic. Trachea midline. ET tube in place. Neck: Supple. Chest: Even and unlabored with reduced breath sounds bilaterally. Cardiovascular: Regular rate and rhythm. No murmurs, rubs or gallops. Gastrointestinal: Abdomen soft. Bowel sounds present in all 4 quadrants. Extremities: Two-plus pitting edema. Dr. Rivas did management and [id number] evaluation. ULTRASOUND SONOGRAPHER did scribing only. LABORATORY: White blood cells 3.75. Red blood cells 3.75. Hemoglobin 9.3. Hematocrit 33.3. Platelet count 165. PH 7.48. PCO2 of 41. PO2 of 60. HCO3 of 29.8. Base excess 6.4. Oxyhemoglobin 91.6. Ventilation settings: Spontaneous rate is 14, FIO2 percent 60.0, tidal volume 560, PEEP 5.0. Sodium 143. Potassium 3.3. Chloride 101. Carbon dioxide 29. BUN 18. Creatinine 0.9. Glucose 129. Calcium 7.6. AST 24. ALT 10. Total protein 5.7. Albumin 2.5. DIAGNOSTIC: Chest x-ray revealed significant improvement of the infiltrate throughout the right lung, stable opacification at the left lower lobe consistent with any combination of atelectasis, effusion or infiltrate, background pulmonary edema has decreased, heart size stable. ASSESSMENT AND PLAN: 1. Acute hypoxemic respiratory failure. Continue AC. We will continue to monitor and titrate according to patient response and protocol. 2. Pneumonia with stable background pulmonary edema. Continue antibiotics. 3. Chronic obstructive pulmonary disease. Continue DuoNeb every 4 hours scheduled and steroids. 4. Congestive heart failure. She is on Lasix. 5. Continue gastrointestinal prophylaxis with Protonix 40 mg intravenous every 24 hours. 6. Continue deep vein thrombosis prophylaxis with Lovenox 40 mg subcutaneous every 24 hours. Input was appreciated from admitting MD and other teams on the case. EVALUATION TIME: 34 minutes. Dictated by RALPH Riojas for Ariela Rivas MD cc: RALPH Riojas MD
[2019-08-14] MEDS: FENTANYL 1,000 MICROGM in NS 80 ML IV SCH ×4 (00:37→20:20)
[2019-08-14] MEDS: MAXIPIME 1 GM in NS 50 ML IV SCH ×3 (02:04→18:23)
[2019-08-14] MEDS: SOLU-MEDROL IV SCH ×3 (02:04→18:23)
[2019-08-14] MEDS: DUONEB (A & A) INH SCH ×6 (03:30→23:31)
[2019-08-14] MEDS: DIPRIVAN 1% 1,000 MG/100 ML BOTTLE IV SCH ×4 (03:35→20:49)
[2019-08-14 04:49] LABS: ALLEN TEST YES; BE 10.8 mmoll (-3.0-3.0); BLOOD TYPE ARTERIAL; HCO3-(ACT) 33.2 mmoll (20.0-26.0); PCO2(98.6) 44 mmHg (35-45); PO2(98.6) 55 mmHg (60-100); SAMPLE BLOOD; SRATE 14 BPM; TVOL 560 mL; pH(98.6) 7.51 (7.35-7.45)
[2019-08-14 04:51] LABS: MODALITY VENTILATOR
--- NOTE | 2019-08-14 05:54 | Diag Imaging Result Doc PS360 ---
EXAM: CHEST-PORTABLE HISTORY: sedation on Mech Vent TECHNIQUE: Single view COMPARISON: 08/13/2019 FINDINGS: No change in the endotracheal tube or nasogastric tube. There are infiltrates in the mid and lower lungs. These are slightly less pronounced. Small left pleural effusion. Heart is mildly enlarged. IMPRESSION: Mild interval improvement Electronically signed by Armaan Baldwin 08/14/2019 5:51 AM
[2019-08-14 07:03] LABS: EOS# 0.02 X1000 (0.0-0.7); EOS% 0.5 % (0.0-10.0); HEMATOCRIT 31.4 % (37.0-47.0); HEMOGLOBIN 9.1 g/dL (12.0-16.0); IMM GRAN# 0.02 X1000 (0.0-0.04); IMM GRAN% 0.5 % (0.0-0.5); LYMPH# 0.22 X1000 (1.2-3.4); MCH 25.7 PG (27-31); MCV 88.7 FL (81-99); MONO# 0.25 X1000 (0.11-0.59); MONO% 5.7 % (1.7-9.3); MPV 11.7 FL (7.4-10.4); NEUT# 3.89 X1000 (1.4-6.5); NEUT% 88.3 % (42.2-75.2); PLT 181 X1000 (130-400); RBC 3.54 XMIL (4.2-5.4); RDW 23.9 % (11.5-14.5)
[2019-08-14 07:23] LABS: ALBUMIN 2.5 g/dL (3.5-5.0); CALCIUM 7.7 mg/dL (8.8-10.2)
[2019-08-14] MEDS ORDERED: ALBUMIN 25% IV ONE (07:53)
[2019-08-14 08:15] LABS: ANISOCYTOSIS 1+; HYPOCHROM OCCASIONAL; LYMPHS 10 % (21-51); MONO 2 % (1-9); SEGS 88 % (42-75)
[2019-08-14] MEDS: LASIX IV SCH ×2 (08:46→20:20)
[2019-08-14] MEDS: POTASSIUM CHLORIDE 20 MEQ/SWI 20 MEQ/100 ML IVPB IV SCH ×2 (08:51→10:19)
[2019-08-14] MEDS: ZYVOX 600 MG/D5W 600 MG/300 ML IVPB IV SCH ×2 (08:52→19:21)
--- NOTE | 2019-08-14 13:43 | PROGRESS NOTE ---
DATE: 08/14/2019 SUBJECTIVE: Ms. Gregory continues to be intubated and sedated and she is still in the Critical Care Unit. Per the nursing staff, the night was uneventful. There was one time that O2 saturation dropped but then it just came right back up. OBJECTIVE: Vital signs: Blood pressure is 115/61, pulse of 83, respirations 14, temperature 98.3 degrees, patient is saturating 93%. General: Ms. Colt Brower is a 58-year-old female, she is in bed, intubated and sedated. HEENT: Mucosa is pink and moist. Anicteric. Acyanotic. Neck: Supple. No JVD. Chest: Clear to auscultation. No crepitations. No rhonchi. Cardiovascular: Regular rate and rhythm. No murmurs, no rubs, no gallops. Gastrointestinal: Abdomen is soft, is minimally distended. Some old infraumbilical surgical scar. No hepatosplenomegaly. Extremities: About 2+ pedal edema extending to the thighs. Central nervous system: Patient will grimace to painful stimulation. Genitourinary: There is a Leary catheter in place. LABORATORY DATA: WBC is 4.40, hemoglobin is 9.1, platelet count of 181,000. Chemistry is also reviewed. Sodium is 147, potassium is 3.0, creatinine is 1.0. Albumin is 2.5. MEDICATIONS: Reviewed. ASSESSMENT: 1. Acute on chronic hypoxemic respiratory failure. Patient continues to be intubated. Today is date 3 under the vent. 2. Pulmonary edema with superimposed pneumonia. We will continue with diuretic and antimicrobial therapy. 3. History of congestive heart failure, ejection fraction of 38% on recent echo in July 2019. 4. Fluid overload secondary to congestive heart failure exacerbation. We will continue with the diuretic therapy. 5. Advanced chronic obstructive pulmonary disease with exacerbation. Patient continues to be on steroids, antibiotics and bronchodilation therapy. Pulmonary Medicine is on board. 6. Tobacco use and abuse prior to hospitalization. 7. Electrolyte abnormality. We will continue to replace. 8. Multiple hospitalizations due to noncompliance. 9. Streptococcus mitis, 1/2 blood culture, possible could be a contaminant, however patient is still getting antibiotics for the pneumonia and this should be covered. We will repeat a blood culture to make sure that is not a true infection. PLAN: In general, I think Ms. Gregory is fairly stable, critical sick. We are going to continue with the ventilator support and follow up with further recommendations from Pulmonary Medicine. I have discontinue her vancomycin because of mildly elevated creatinine and I would put her on Zyvox instead. We will continue with the cefepime. cc: Davin Traylor MD
[2019-08-14] MEDS: MAG-OX NG SCH ×2 (16:53→20:00)
[2019-08-14] MEDS: LOVENOX SUBQ SCH (18:23)
[2019-08-14] MEDS: PROTONIX IV SCH (18:23)
--- NOTE | 2019-08-14 21:35 | PROVIDER PROGRESS NOTE ---
Progress Note Examined. Full note to follow.
[2019-08-15] MEDS: SOLU-MEDROL IV SCH ×2 (02:10→13:47)
[2019-08-15] MEDS: MAXIPIME 1 GM in NS 50 ML IV SCH ×3 (02:10→18:50)
[2019-08-15] MEDS: FENTANYL 1,000 MICROGM in NS 80 ML IV SCH ×2 (02:16→09:07)
[2019-08-15] MEDS: DIPRIVAN 1% 1,000 MG/100 ML BOTTLE IV SCH ×5 (03:16→23:20)
[2019-08-15] MEDS: DUONEB (A & A) INH SCH ×6 (03:41→23:02)
[2019-08-15 05:04] LABS: ALLEN TEST YES; BE 12.6 mmoll (-3.0-3.0); BLOOD TYPE ARTERIAL; HCO3-(ACT) 34.7 mmoll (20.0-26.0); METHB 0.9 % (0.0-1.5); O2(CT) 12.2 mL/dL (15.0-23.0); O2HB 92.8 % (95.0-99.0); PCO2(98.6) 39 mmHg (35-45); PO2(98.6) 64 mmHg (60-100); SAMPLE BLOOD; SAO2 96.2 % (95.0-100.0); SRATE 14 BPM; THB 9.3 g/dL (11.5-17.4); TVOL 560 mL
[2019-08-15 05:05] LABS: MODALITY VENTILATOR; pH(98.6) 7.57 (7.35-7.45)
--- NOTE | 2019-08-15 07:12 | Diag Imaging Result Doc PS360 ---
EXAM: CHEST-PORTABLE 08/15/2019 HISTORY: sedation on Mech Vent TECHNIQUE: AP portable at 0520 COMMENT: There is alveolar and interstitial opacity throughout the left lung particularly in the lower lobe. This appears slightly worse than on 08/14/2019. The endotracheal tube remains with its tip at the thoracic inlet and the NG tube passes below the diaphragm. The alveolar opacity in the right lower lobe which was present previously has improved slightly. IMPRESSION: Waxing and waning basilar opacities consistent with pulmonary edema. Electronically signed by Rubén Leahy 08/15/2019 7:10 AM
[2019-08-15] MEDS: ZYVOX 600 MG/D5W 600 MG/300 ML IVPB IV SCH ×2 (07:34→19:25)
[2019-08-15 07:45] LABS: HEMATOCRIT 30.8 % (37.0-47.0); HEMOGLOBIN 8.8 g/dL (12.0-16.0); LYMPH# 0.21 X1000 (1.2-3.4); LYMPH% 4.8 % (20.5-51.1); MCH 25.1 PG (27-31); MCHC 28.6 g/dL (33-37); MONO# 0.27 X1000 (0.11-0.59); MONO% 6.2 % (1.7-9.3); MPV 11.3 FL (7.4-10.4); NEUT# 3.86 X1000 (1.4-6.5); PLT 162 X1000 (130-400); RDW 23.2 % (11.5-14.5); WBC 4.34 X1000 (4.8-10.8)
[2019-08-15] MEDS: MAG-OX NG SCH ×2 (08:00→13:47)
[2019-08-15 08:02] LABS: ALB/GLOB RATIO 1.4; ALBUMIN 3.3 g/dL (3.5-5.0); CALCIUM 7.7 mg/dL (8.8-10.2); CREATININE 1.1 mg/dL (0.5-0.9); POTASSIUM 3.2 mmol/L (3.5-5.1); TOTAL BILIRUBIN 0.85 mg/dL (0.20-1.00); TOTAL PROTEIN 5.7 g/dL (6.3-8.3)
[2019-08-15] MEDS ORDERED: ALBUMIN 25% IV ONE (08:13)
[2019-08-15] MEDS: POTASSIUM CHLORIDE 20 MEQ/SWI 20 MEQ/100 ML IVPB IV SCH ×2 (09:09→11:09)
--- NOTE | 2019-08-15 11:12 | PROGRESS NOTE ---
DATE: 08/15/2019 SUBJECTIVE: I have seen and examined Ms. Gregory today. She remains in the critical care unit. She is intubated and sedated on propofol. There is no family member at the bedside. Per the nursing staff, her night was uneventful. Whenever she is on sedation vacation, she is reaching out for the ET tube. OBJECTIVE: Vital Signs: Blood pressure is 111/63, pulse of 78, respirations 12, the patient is saturating 94% on mechanical ventilation, temperature is 97.5 degrees. General: Ms. Gregory is a 58- year-old, female. She is in bed. She is currently intubated and sedated. She is synchronizing well with the ventilator. Respiratory: Clear to auscultation. No crepitations. No rhonchi. Cardiovascular: Regular rate and rhythm. No murmurs, no rubs, no gallops. GI: Abdomen is soft, minimally distended. Some old infraumbilical surgical scar. No hepatosplenomegaly. Mild edema in the lateral aspect of the abdominal wall. Extremities: There is about 1+ pedal edema. MANUAL QA TESTER: The patient is intubated and sedated. She will grimace to painful stimulation. She will also withdrawal to pain. : Leary catheter is in place. The patient's I's and O's show urine output 2500. The patient is currently negative balance of 4635. IMAGING STUDIES: A chest x-ray shows waxing and waning bibasilar opacities, consistent with pulmonary edema. LABORATORY DATA: WBC is 4.34, hemoglobin is 8.8, platelet count of 162,000. Chemistry is also reviewed. Creatinine is 1.1. Rest of chemistry is unremarkable. MEDICATIONS: The patient's current medications have all been reviewed. We are going to start titrating her steroids down. ASSESSMENT: 1. Acute on chronic hypoxemic respiratory failure. The patient continues to be on the ventilator. Today is day 4 intubated. 2. Pulmonary edema with superimposed pneumonia. The patient is on diuretic and antimicrobial therapy. 3. Congestive heart failure. Ejection fraction of 38%, associated with fluid overload on presentation, most consistent with congestive heart failure exacerbation. Will continue with diuretic therapy. The patient is currently negative balance. 4. Advanced chronic obstructive pulmonary disease with severe exacerbation on admission. The patient is currently on antibiotics, steroids, and bronchodilation therapy. Pulmonary Medicine is on board. 5. Tobacco use and abuse prior to hospitalization. 6. Electrolyte abnormality. Will continue to replace. 7. Streptococcus mitis bacteremia, 1/, presumably contaminant. Blood cultures have been repeated. 8. Multiple hospitalizations due to noncompliance. 9. Acute renal failure. We are going to continue to monitor this, and avoid any nephrotoxins. In general, Ms. Gregory continues to be critically sick, still intubated. Her laboratory this morning shows mild metabolic alkalosis, which I think is probably due to diuretic therapy. We have decreased her Lasix today. We have also cut back on her steroids. Will continue with antimicrobial coverage, ventilator support, and nutritional support. The patient is being seen by Pulmonary Medicine as well. We will update the family members about her current medical status. cc: Davin Traylor MD Critical Time: 1 hour [facility]
--- NOTE | 2019-08-15 15:26 | PROVIDER PROGRESS NOTE ---
Progress Note Progress Note for 08/14/2019 Dr. Rivas Progress Note/Pulmonary and or critical care We appreciated progress of care, Complications, change in diagnosis, and instructions to patient. Subjective: We note the level of consciousness, bed (chair) position, family presence (if any), level of lethargy, feeling of symptoms, and changes from baseline condition/symptom. This is a 58-year-old female lying in bed with ventilatory support. Family member at bedside. Appears in no acute distress.alla in bed with venturi mask on, sleeping. BiPAP at night. His mucosa is relatively dry. Objective: Vital Signs: We reviewed EMR current values for Pulse rate, Blood pressure, Pulse rate, respiratory rate and Pulse oximetry. Also noted other values and trends if present (e.g. I/O, CVP). T 98.1, RI 93, RR 31 , BP 103/64 and SaO2 98 on AC -settings @ 14/50.0/560/5.0 Physical Examination: General: Lying in bed with no acute distress noted. On AC. HEENT: Normocephalic. Atraumatic. Trachea midline. Mucosa pink and relatively dry. Chest: No increased work of breathing or accessory muscle use. Symmetrical excursion. Decreased entry. CVS: Regular rate and rhythm with S1 and S2 appreciated. Abdomen: Soft. Nondistended. Obese. Normoactive bowel sounds in all 4 quadrants. Extremities: No pedal edema. No cyanosis. No clubbing. Neuro: Sedated. Evaluation, face to face management by Dr. Rivas. RALPH Riojas did scribing only. Labs and Radiology: Reviewed available labs and radiology values available at time of EMR review. Chest xray- reveals mild interval improvement. pH-7.51 Pco2- 44 PO2-55 HCO3- 33.2 Base excess-10.8 ASSESSMENT/PLAN 1. Acute on chronic hypoxemic respiratory failure. The patient is currently intubated. Today is day 2 under the vent. 2. Pulmonary edema with possible superimposed pneumonia. The patient is on antimicrobial therapy and diuretics. 3. History of congestive heart failure 4. Fluid overload, presumably from congestive heart failure. 5. Advanced chronic obstructive pulmonary disease with exacerbation. Patient is on standard of therapy. 6. History of tobacco use and abuse prior to hospitalization. 7. Electrolyte abnormality including hypomagnesemia, hypokalemia. We will continue to replace. 8. Multiple hospitalizations.
[2019-08-15] MEDS: LOVENOX SUBQ SCH (16:56)
[2019-08-15] MEDS: PROTONIX IV SCH (16:56)
--- NOTE | 2019-08-15 19:58 | PROVIDER PROGRESS NOTE ---
Progress Note Progress Note Dr. Rivas Progress Note/Pulmonary and or critical care We appreciated progress of care, Complications, change in diagnosis, and instructions to patient. Subjective: We note the level of consciousness, bed (chair) position, family presence (if any), level of lethargy, feeling of symptoms, and changes from baseline condition/symptom. This is a 58-year-old female lying in bed with ventilatory support. Family member at bedside. Appears in no acute distress.alla in bed with venturi mask on, sleeping. BiPAP at night. His mucosa is relatively dry. Objective: Vital Signs: We reviewed EMR current values for Pulse rate, Blood pressure, Pulse rate, respiratory rate and Pulse oximetry. Also noted other values and trends if present (e.g. I/O, CVP). T 98.2 ,RI 99, RR 22, BP 114/70, and SaO2 91 on AC -settings @ 14/50.0/560/5.0 Physical Examination: General: Lying in bed with no acute distress noted. On AC. HEENT: Normocephalic. Atraumatic. Trachea midline. Mucosa pink and relatively dry. Chest: No increased work of breathing or accessory muscle use. Symmetrical excursion. Decreased entry. CVS: Regular rate and rhythm with S1 and S2 appreciated. Abdomen: Soft. Nondistended. Obese. Normoactive bowel sounds in all 4 quadrants. Extremities: No pedal edema. No cyanosis. No clubbing. Neuro: Sedated. Evaluation, face to face management by Dr. Rivas. RALPH Riojas did scribing only. Labs and Radiology: Reviewed available labs and radiology values available at time of EMR review. Laboratory Results 08/15/19 08/15/19 08/15/19 04:05 04:14 04:14 WBC 4.34 L RBC 3.50 L Hgb 8.8 L Hct 30.8 L MCV 88.0 MCH 25.1 L MCHC 28.6 L RDW Std Deviation 23.2 H Plt Count 162 MPV 11.3 H Immature Gran % (Auto) 0.0 Neut % (Auto) 89.0 H Lymph % (Auto) 4.8 L [place] % (Auto) 6.2 Eos % (Auto) 0.0 Baso % (Auto) 0.0 Immature Gran # (Auto) 0.00 Neut # (Auto) 3.86 Lymph # (Auto) 0.21 L [place] # (Auto) 0.27 Eos # (Auto) 0.00 Baso # (Auto) 0.00 Specimen Type ARTERIAL Sample Site R RADIAL pH 7.57 H* pCO2 39 pO2 64 HCO3 34.7 H Base Excess 12.6 H Oxyhemoglobin 92.8 L ABG O2 Sat (Calculated) 12.2 L ABG O2 Saturation 96.2 ABG Carboxyhemoglobin 2.50 ABG Methemoglobin 0.9 Kirk Test YES A-a O2 Difference 244.0 Total Hemoglobin 9.3 L Lactate 2.20 Blood Gas Modality VENTILATOR Vent Mode A/C Spontaneous Rate 14 FiO2 % 50.0 Tidal Volume 560 PEEP 5.0 Sodium 144 Potassium 3.2 L Chloride 98 Carbon Dioxide 34 Anion Gap 12 BUN 29 H Creatinine 1.1 H Estimated GFR/1.73 m2 51 BUN/Creatinine Ratio 26 Glucose 130 H Calculated Osmolality 294 Calcium 7.7 L Total Bilirubin 0.85 AST 28 ALT 9 L Alkaline Phosphatase 63 Total Protein 5.7 L Albumin 3.3 L Globulin 2.4 Albumin/Globulin Ratio 1.4 ASSESSMENT/PLAN 1. Acute on chronic hypoxemic respiratory failure. The patient is currently intubated. . 2. Pulmonary edema with possible superimposed pneumonia. The patient is on antimicrobial therapy and diuretics. 3. History of congestive heart failure 4. Fluid overload, presumably from congestive heart failure. 5. Advanced chronic obstructive pulmonary disease with exacerbation. Patient is on standard of therapy. 6. History of tobacco use and abuse prior to hospitalization. 7. Electrolyte abnormality including hypomagnesemia, hypokalemia. We will continue to replace. 8. Multiple hospitalizations. Time spent- 34 minutes
[2019-08-16] MEDS: SOLU-MEDROL IV SCH ×2 (02:12→14:24)
[2019-08-16] MEDS: MAXIPIME 1 GM in NS 50 ML IV SCH ×3 (02:12→19:09)
[2019-08-16] MEDS: DUONEB (A & A) INH SCH ×6 (03:20→22:56)
[2019-08-16] MEDS: DIPRIVAN 1% 1,000 MG/100 ML BOTTLE IV SCH (03:32)
[2019-08-16 05:22] LABS: ALLEN TEST YES; BE 9.9 mmoll (-3.0-3.0); BLOOD TYPE ARTERIAL; HCO3-(ACT) 32.6 mmoll (20.0-26.0); METHB 0.3 % (0.0-1.5); O2HB 96.2 % (95.0-99.0); PCO2(98.6) 45 mmHg (35-45); PO2(98.6) 84 mmHg (60-100); SAMPLE BLOOD; SAO2 98.9 % (95.0-100.0); SRATE 12 BPM; THB 9.5 g/dL (11.5-17.4); TVOL 500 mL; pH(98.6) 7.49 (7.35-7.45)
[2019-08-16 05:23] LABS: MODALITY VENTILATOR
[2019-08-16 06:24] LABS: EOS# 0.01 X1000 (0.0-0.7); EOS% 0.1 % (0.0-10.0); HEMATOCRIT 31.9 % (37.0-47.0); LYMPH# 0.39 X1000 (1.2-3.4); LYMPH% 5.2 % (20.5-51.1); MCH 25.2 PG (27-31); MCHC 28.2 g/dL (33-37); MCV 89.4 FL (81-99); MONO# 0.46 X1000 (0.11-0.59); MONO% 6.1 % (1.7-9.3); MPV 12.5 FL (7.4-10.4); NEUT# 6.63 X1000 (1.4-6.5); NEUT% 88.6 % (42.2-75.2); PLT 179 X1000 (130-400); RBC 3.57 XMIL (4.2-5.4); RDW 22.4 % (11.5-14.5); WBC 7.49 X1000 (4.8-10.8)
[2019-08-16 07:06] LABS: ALB/GLOB RATIO 1.9; ALBUMIN 4.1 g/dL (3.5-5.0); CALCIUM 8.1 mg/dL (8.8-10.2); POTASSIUM 3.9 mmol/L (3.5-5.1); TOTAL BILIRUBIN 0.98 mg/dL (0.20-1.00); TOTAL PROTEIN 6.3 g/dL (6.3-8.3)
[2019-08-16] MEDS: ZYVOX 600 MG/D5W 600 MG/300 ML IVPB IV SCH ×2 (07:43→19:19)
--- NOTE | 2019-08-16 07:54 | Diag Imaging Result Doc PS360 ---
EXAM: CHEST-PORTABLE INDICATION: sedation on Mech Vent TECHNIQUE: One view COMPARISON: 08/15/2019 FINDINGS: Support tubes and lines are in stable position. Interstitial and airspace opacity at the left lung base is approximately stable. The right lower lobe consolidation seen previously has worsened. No new consolidation is identified, otherwise. Cardiac silhouette is stable. IMPRESSION: Interval worsening of right basilar consolidation. Electronically signed by Jose Escoto 08/16/2019 7:51 AM
[2019-08-16 08:28] LABS: LYMPHS 2 % (21-51); MONO 10 % (1-9); SEGS 88 % (42-75)
[2019-08-16] MEDS: MAG-OX NG SCH ×4 (09:19→21:21)
[2019-08-16] MEDS: HALDOL IV PRN ×2 (10:21→14:50)
[2019-08-16] MEDS: PRECEDEX 200 MICROGM in NS 48 ML IV SCH ×5 (10:32→22:28)
[2019-08-16 10:42] LABS: ALLEN TEST YES; BE 7.9 mmoll (-3.0-3.0); BLOOD TYPE ARTERIAL; METHB 1.1 % (0.0-1.5); O2(CT) 13.2 mL/dL (15.0-23.0); O2HB 92.5 % (95.0-99.0); PCO2(98.6) 46 mmHg (35-45); PO2(98.6) 63 mmHg (60-100); SAMPLE BLOOD; SAO2 95.8 % (95.0-100.0); THB 10.1 g/dL (11.5-17.4); pH(98.6) 7.46 (7.35-7.45)
[2019-08-16 10:44] LABS: MODALITY VENTILATOR
--- NOTE | 2019-08-16 11:14 | PROGRESS NOTE ---
DATE: 08/16/2019 SUBJECTIVE: I have seen and examined Ms. Gregory today. Ms. Gregory continues to be in the critical care unit. She is intubated and sedated. The was at the bedside at the time of the encounter. OBJECTIVE: Vital Signs: Blood pressure is 157/92, pulse of 108, respirations are 25, temperature is 98.5 degrees. General Examination: Ms. Gregory is a 58-year-old, female. She is in bed. She is currently intubated, synchronizing well with the ventilator, and she is off sedation. She is awake and alert. HEENT: Mucosa is pink and moist. Neck: Supple. Chest: Good air entry bilaterally. There were no crepitations, no rhonchi. Cardiovascular: Regular rate and rhythm. No murmurs, no rubs, no gallops. GI: Abdomen was soft, nontender. There is an old infraumbilical surgical scar. No hepatosplenomegaly. Mild edema on the lateral aspect of the abdominal wall. Extremities: About 1+ pedal edema. DATABASE MANAGER: The patient is awake, still intubated. She is going through a spontaneous breathing trial. She is fully awake. She seems to understand and followed basic commands. Is and Os: Urine output was 2500. It is currently still negative balance. Imaging Studies: Shows a chest x-ray, interval worsening of right basilar consolidation. Laboratory Data: Has been reviewed. CBC shows mild normocytic anemia. Chemistry is, for the most part, unremarkable. Creatinine is down to 1.0. The patient's current medications have also been reviewed. Antibiotics include cefepime and Zyvox. ASSESSMENT: 1. Acute on chronic hypoxemic respiratory failure. Patient is on day 5 of mechanical ventilation. She is going through a spontaneous breathing trial today. Hopefully, she can be extubated. 2. Pulmonary edema with superimposed pneumonia. Patient is on diuretics and antimicrobial therapy. Chest x-ray this morning shows stability. No new consolidation. 3. Congestive heart failure with ejection fraction of 38%, in exacerbation, improving. 4. Advanced chronic obstructive pulmonary disease with severe exacerbation on admission. The patient is on standard of care. 5. Tobacco use and abuse prior to hospitalization. Patient is counseled and the at the bedside has also been counseled. 6. Electrolyte abnormalities. We will continue to replace. 7. Streptococcus mitis bacteremia, one out of two, presumably contaminant. Repeat blood cultures have all been negative. 8. Acute renal failure. Creatinine is trending down. 9. Multiple hospitalizations due to noncompliance. PLAN: In general, I think Ms. Gregory seems to be doing well. She is more awake. She seems to be following commands. She is currently undergoing a spontaneous breathing trial. I think she might be able to be extubated later today. We will follow up with further recommendations from pulmonary medicine. cc: Davin Traylor MD Addendum: Patient successfully extubated. remains on cool aerosol. MTDD
--- NOTE | 2019-08-16 18:06 | PROVIDER PROGRESS NOTE ---
Progress Note Dr. Rivas Progress Note/Pulmonary and or critical care We appreciated progress of care, Complications, change in diagnosis, and instructions to patient. Subjective: We note the level of consciousness, bed (chair) position, family presence (if any), level of lethargy, feeling of symptoms, and changes from baseline condition/symptom. The patient is intubated. She has been on weaning trials since 932 this morning and she tolerates well. Based on the last ABG, she is ready for extubation. H usband at the bedside. Objective: Vital Signs: We reviewed EMR current values for Pulse rate, Blood pressure, Pulse rate, respiratory rate and Pulse oximetry. Also noted other values and trends if present (e.g. I/O, CVP). T 98.4 (no fever in last 24 hours), [place] 106, RR 21, BP 129/76 and SaO2 94% on AC 12, 50%, 500, 5. I/O +2238 ml Physical Examination: General: Intubated. Lying in bed with no acute distress noted. HEENT: Normocephalic. Trachea midline. ET tube in place. Mucosa pink and moist. Chest: Even and unlabored. Symmetrical excursion. Diminished breathing sounds bilaterally. CVS: Regular rate and rhythm with S1 and S2 appreciated. Abdomen: Soft. Mildly distended. Mild edema in the lateral abdominal wall. Bowel sounds in all 4 quadrants noted. Extremities: BLE pitting edema 1+. No cyanosis. No clubbing. Neuro: Awake and alert. Following simple commands. Labs and Radiology: Reviewed available labs and radiology values available at time of EMR review. Laboratory Results 08/16/19 08/16/19 08/16/19 04:00 04:00 04:00 WBC 7.49 RBC 3.57 L Hgb 9.0 L Hct 31.9 L MCV 89.4 MCH 25.2 L MCHC 28.2 L RDW Std Deviation 22.4 H Plt Count 179 MPV 12.5 H Immature Gran % (Auto) 0.0 Neut % (Auto) 88.6 H Lymph % (Auto) 5.2 L [place] % (Auto) 6.1 Eos % (Auto) 0.1 Baso % (Auto) 0.0 Immature Gran # (Auto) 0.00 Neut # (Auto) 6.63 H Lymph # (Auto) 0.39 L [place] # (Auto) 0.46 Eos # (Auto) 0.01 Baso # (Auto) 0.00 Segmented Neutrophils 88 H Lymphocytes 2 L Monocytes 10 H Specimen Type Sample Site pH pCO2 pO2 HCO3 Base Excess Oxyhemoglobin ABG O2 Sat (Calculated) ABG O2 Saturation ABG Carboxyhemoglobin ABG Methemoglobin Kirk Test A-a O2 Difference Total Hemoglobin Lactate Blood Gas Modality Vent Mode Spontaneous Rate FiO2 % Tidal Volume PEEP Pressure Support Sodium 143 Potassium 3.9 D Chloride 97 L Carbon Dioxide 32 Anion Gap 14 BUN 31 H Creatinine 1.0 H Estimated GFR/1.73 m2 57 BUN/Creatinine Ratio 31 Glucose 121 H Calculated Osmolality 293 Calcium 8.1 L Magnesium 1.6 Total Bilirubin 0.98 AST 22 ALT 8 L Alkaline Phosphatase 57 Total Protein 6.3 Albumin 4.1 Globulin 2.2 Albumin/Globulin Ratio 1.9 08/16/19 08/16/19 04:30 10:30 WBC RBC Hgb Hct MCV MCH MCHC RDW Std Deviation Plt Count MPV Immature Gran % (Auto) Neut % (Auto) Lymph % (Auto) [place] % (Auto) Eos % (Auto) Baso % (Auto) Immature Gran # (Auto) Neut # (Auto) Lymph # (Auto) [place] # (Auto) Eos # (Auto) Baso # (Auto) Segmented Neutrophils Lymphocytes Monocytes Specimen Type ARTERIAL ARTERIAL Sample Site R RADIAL R RADIAL pH 7.49 H 7.46 H pCO2 45 46 H pO2 84 63 HCO3 32.6 H 31.0 H Base Excess 9.9 H 7.9 H Oxyhemoglobin 96.2 92.5 L ABG O2 Sat (Calculated) 13.0 L 13.2 L ABG O2 Saturation 98.9 95.8 ABG Carboxyhemoglobin 2.40 2.30 ABG Methemoglobin 0.3 1.1 Kirk Test YES YES A-a O2 Difference 216.0 165.0 Total Hemoglobin 9.5 L 10.1 L Lactate 1.80 2.50 H Blood Gas Modality VENTILATOR VENTILATOR Vent Mode A/C Spontaneous Rate 12 FiO2 % 50.0 40.0 Tidal Volume 500 PEEP 5.0 5.0 Pressure Support 5.00 Sodium Potassium Chloride Carbon Dioxide Anion Gap BUN Creatinine Estimated GFR/1.73 m2 BUN/Creatinine Ratio Glucose Calculated Osmolality Calcium Magnesium Total Bilirubin AST ALT Alkaline Phosphatase Total Protein Albumin Globulin Albumin/Globulin Ratio Assessment: Acute on chronic hypoxemic respiratory failure. Intubated on 08/11/19. Ready for Extubation. Pulmonary edema with superimposed pneumonia. CHF exacerbation. EF 38% with diffuse 3 vessel coronary artery disease on 07/24/19. Advanced COPD with severe exacerbation. Tobacco use and abuse prior to hospitalization. Acute renal failure. Multiple hospitalization with recurrent pneumonia and recurrent intubation. Prognosis is guarded on short term but on long run there are many comorbid factors. Plan: Continue current treatment and supportive care per admitting and other teams on the case. Daily weaning trials started on 08/15/19. Ready for extubation at this time. Supplemental oxygen titrated to patients needs per clinical protocol with closely monitoring. Anxiolytics (Precedex) titrated to patient's needs per clinical protocol with closely monitoring. Antibiotics, including cefepime and Linezolid. Bronchodilators. IV steroid. Diuresis as needed. Tobacco cessation education when appropriate. Appropriate DVT and GI prophylaxis Discuss patients condition and care plan with family at the bedside and all questions have been answered. Input was appreciated from Admitting MD and other teams on the case. Evaluation time in minutes: 32 minutes.
[2019-08-16] MEDS: PROTONIX IV SCH (19:09)
[2019-08-16] MEDS: LOVENOX SUBQ SCH (19:09)
[2019-08-17] MEDS: PRECEDEX 200 MICROGM in NS 48 ML IV SCH ×3 (00:15→06:39)
[2019-08-17] MEDS: SOLU-MEDROL IV SCH (01:51)
[2019-08-17] MEDS: HALDOL IV PRN (01:58)
[2019-08-17] MEDS: MAXIPIME 1 GM in NS 50 ML IV SCH ×3 (01:59→18:17)
[2019-08-17] MEDS: DUONEB (A & A) INH SCH ×6 (03:27→23:24)
[2019-08-17 04:58] LABS: ALLEN TEST YES; BE 9.8 mmoll (-3.0-3.0); BLOOD TYPE ARTERIAL; HCO3-(ACT) 32.5 mmoll (20.0-26.0); METHB 0.1 % (0.0-1.5); O2(CT) 11.5 mL/dL (15.0-23.0); O2HB 93.8 % (95.0-99.0); PCO2(98.6) 49 mmHg (35-45); PO2(98.6) 61 mmHg (60-100); SAMPLE BLOOD; SAO2 97.2 % (95.0-100.0); THB 8.7 g/dL (11.5-17.4); pH(98.6) 7.46 (7.35-7.45)
[2019-08-17 04:59] LABS: MODALITY BI PAP
[2019-08-17 06:51] LABS: EOS# 0.01 X1000 (0.0-0.7); EOS% 0.2 % (0.0-10.0); HEMATOCRIT 36.1 % (37.0-47.0); LYMPH# 0.32 X1000 (1.2-3.4); LYMPH% 5.5 % (20.5-51.1); MCH 24.6 PG (27-31); MCHC 27.7 g/dL (33-37); MCV 88.9 FL (81-99); MONO# 0.47 X1000 (0.11-0.59); MPV 12.6 FL (7.4-10.4); NEUT# 5.07 X1000 (1.4-6.5); NEUT% 86.3 % (42.2-75.2); PLT 151 X1000 (130-400); RBC 4.06 XMIL (4.2-5.4); RDW 22.3 % (11.5-14.5); WBC 5.87 X1000 (4.8-10.8)
--- NOTE | 2019-08-17 06:52 | Diag Imaging Result Doc PS360 ---
CHEST-PORTABLE - 08/17/2019 INDICATION: sedation on Mech Vent COMPARISON: 08/16/2019 FINDINGS: The patient has been extubated. Lung volumes remain stable. Stable cardiomegaly and significant pulmonary vascular congestion. There has been decrease in the central infiltrates/pulmonary edema. Stable nonspecific bibasilar opacifications. IMPRESSION: Patient extubated. Decrease in the central pulmonary edema. Electronically signed by Wan Eddy 08/17/2019 6:49 AM
[2019-08-17] MEDS: ZYVOX 600 MG/D5W 600 MG/300 ML IVPB IV SCH ×2 (07:39→19:56)
[2019-08-17 07:46] LABS: AGAP 16; ALB/GLOB RATIO 1.7; ALBUMIN 3.8 g/dL (3.5-5.0); ALKALINE PHOSPHATASE 58 U/L (32-104); BUN 32 mg/dL (8-22); CALCIUM 8.6 mg/dL (8.8-10.2); CHLORIDE 94 mmol/L (98-107); COSMO 285; CREATININE 0.9 mg/dL (0.5-0.9); ESTIMATED GFR > 60; GLUCOSE 135 mg/dL (70-104); GOT 23 U/L (10-30); GPT 10 U/L (10-36); POTASSIUM 3.9 mmol/L (3.5-5.1); SODIUM 138 mmol/L (136-145); TCO2 28 mmol/L (25-35); TOTAL BILIRUBIN 1.75 mg/dL (0.20-1.00); TOTAL PROTEIN 6.1 g/dL (6.3-8.3)
[2019-08-17] MEDS: LASIX IV SCH ×2 (10:48→21:44)
[2019-08-17] MEDS ORDERED: NICODERM PATCH TD PRN (11:27)
--- NOTE | 2019-08-17 12:53 | PROGRESS NOTE ---
DATE: 08/17/2019 SUBJECTIVE: Patient has no major complaints. She is kind of sitting up in bed. OBJECTIVE: Vital Signs: Blood pressure 127/78, heart rate of 69, respiratory 17, temperature was 98.8 degrees. 93% on 40%. Cardiovascular: Regular rate and rhythm. Pulmonary: Bilateral breath sounds clear to auscultation. Gastrointestinal: Abdominal was soft, nontender, nondistended. Bowel sounds were positive. Extremity: No clubbing or cyanosis. Lymphatic: No peripheral edema. Neurological: Nonfocal. LABORATORY DATA: White count 5, hemoglobin and hematocrit 10 and 36, platelets 151,000. PH 7.46, PCO2 49, PaO2 61. Basic looked okay. PROBLEM LIST: 1. Acute on chronic hypercapnic respiratory failure due to chronic obstructive pulmonary disease. 2. Congestive heart failure. We will continue to follow. 3. Pulmonary edema with superimposed pneumonia. She is on diuretics. We will continue diuresis. She does seem a bit overloaded. 4. Pneumonia. She is empirically on antibiotics. 5. Congestive heart failure. She does have some EF 38%. We will continue diuresis and follow. 6. Streptococcus mitis bacteremia, which I guess is felt to be a contaminant. Repeat blood cultures have been negative. 7. We will continue to follow and get Infectious Disease input on strep mitis since it is a group D strep, but we will continue to follow. cc: Jose Luis Zaragoza MD
--- NOTE | 2019-08-17 15:44 | PROVIDER PROGRESS NOTE ---
Progress Note Dr. Rivas Progress Note/Pulmonary and or critical care Subjective: The patient was successfully extubated yesterday. She had been on BiPAP since extubation till this morning 8am, she was put on VM 50%. And she has been tolerated it very well. Precedex was off this morning. She appears calm and cooperative. She reports no pain or cough, however she does have some dry cough during the encounter. She has been taking ice chip since extubation with no difficulty. No family at the bedside. Input is appreciated from Dr. Zaragoza and other teams on the case. Objective: Vital Signs: T 98.8 (no fever in last 24 hours), [place] 69, RR 17, BP 127/78 and SaO2 93% on VM 50%. I/O +372 ml Physical Examination: General: Chronically ill appearing. Lying in bed with no acute distress noted. HEENT: Normocephalic. Trachea midline. Mucosa pink and moist. Some white patch noted at the back of the throat. Chest: Even and unlabored. Symmetrical excursion. Diminished breathing sounds bilaterally. CVS: Regular rate and rhythm with S1 and S2 appreciated. Abdomen: Soft. Mildly distended. Mild edema in the lateral abdominal wall. Bowel sounds in all 4 quadrants noted. Extremities: BLE pitting edema 1+. No cyanosis. No clubbing. Neuro: Awake and alert x 3. Speech fluent. Following simple commands. Labs and Radiology: Laboratory Results 08/17/19 08/17/19 08/17/19 04:30 04:30 04:47 WBC 5.87 RBC 4.06 L Hgb 10.0 L Hct 36.1 L MCV 88.9 MCH 24.6 L MCHC 27.7 L RDW Std Deviation 22.3 H Plt Count 151 MPV 12.6 H Immature Gran % (Auto) 0.0 Neut % (Auto) 86.3 H Lymph % (Auto) 5.5 L [place] % (Auto) 8.0 Eos % (Auto) 0.2 Baso % (Auto) 0.0 Immature Gran # (Auto) 0.00 Neut # (Auto) 5.07 Lymph # (Auto) 0.32 L [place] # (Auto) 0.47 Eos # (Auto) 0.01 Baso # (Auto) 0.00 Specimen Type ARTERIAL Sample Site R RADIAL pH 7.46 H pCO2 49 H pO2 61 HCO3 32.5 H Base Excess 9.8 H Oxyhemoglobin 93.8 L ABG O2 Sat (Calculated) 11.5 L ABG O2 Saturation 97.2 ABG Carboxyhemoglobin 3.40 H ABG Methemoglobin 0.1 Kirk Test YES A-a O2 Difference 234.0 Total Hemoglobin 8.7 L Lactate 1.60 Blood Gas Modality BI PAP FiO2 % 50.0 Inspiratory BiPAP 12.0 Expiratory BiPAP 6.0 Sodium 138 Potassium 3.9 Chloride 94 L Carbon Dioxide 28 Anion Gap 16 BUN 32 H Creatinine 0.9 Estimated GFR/1.73 m2 > 60 BUN/Creatinine Ratio 36 Glucose 135 H Calculated Osmolality 285 Calcium 8.6 L Total Bilirubin 1.75 H AST 23 ALT 10 Alkaline Phosphatase 58 Total Protein 6.1 L Albumin 3.8 Globulin 2.3 Albumin/Globulin Ratio 1.7 Assessment: Acute on chronic hypoxemic respiratory failure. Intubated on 08/11/19. Extubated on 08/16/19. Pulmonary edema with superimposed pneumonia. CXR today shows decrease in the central pulmonary edema. CHF exacerbation. EF 38% with diffuse 3 vessel coronary artery disease per echocardiogram on 07/24/19. Advanced COPD with severe exacerbation. Tobacco use and abuse prior to hospitalization. Acute renal failure. Multiple hospitalization with recurrent pneumonia and recurrent intubation. Prognosis is guarded on short term but on long run there are many comorbid factors. Plan: Continue current treatment and supportive care per admitting and other teams on the case. Supplemental oxygen and BiPAP as needed. Titrate oxygen demand to patients needs per clinical protocol. Antibiotics, including cefepime and Linezolid. Bronchodilators. IV steroid (tapering down). Diuresis as needed. Tobacco cessation education when appropriate. Appropriate DVT and GI prophylaxis Evaluation time in minutes: 31 minutes.
[2019-08-17] MEDS: MYCOSTATIN SUSP PO SCH ×2 (17:07→19:59)
[2019-08-17] MEDS: LOVENOX SUBQ SCH (17:07)
[2019-08-18] MEDS ORDERED: SOLU-MEDROL IV SCH (02:00)
[2019-08-18] MEDS: MAXIPIME 1 GM in NS 50 ML IV SCH ×3 (02:01→18:39)
[2019-08-18] MEDS: DUONEB (A & A) INH SCH ×6 (03:20→23:00)
[2019-08-18 05:10] LABS: EOS# 0.09 X1000 (0.0-0.7); EOS% 1.1 % (0.0-10.0); HEMATOCRIT 34.1 % (37.0-47.0); HEMOGLOBIN 9.5 g/dL (12.0-16.0); LYMPH# 0.27 X1000 (1.2-3.4); LYMPH% 3.2 % (20.5-51.1); MCH 24.5 PG (27-31); MCHC 27.9 g/dL (33-37); MCV 88.1 FL (81-99); MONO# 0.56 X1000 (0.11-0.59); MONO% 6.7 % (1.7-9.3); MPV 11.5 FL (7.4-10.4); NEUT# 7.42 X1000 (1.4-6.5); PLT 176 X1000 (130-400); RBC 3.87 XMIL (4.2-5.4); RDW 22.4 % (11.5-14.5); WBC 8.34 X1000 (4.8-10.8)
[2019-08-18 05:29] LABS: AGAP 11; ALB/GLOB RATIO 1.3; ALBUMIN 3.5 g/dL (3.5-5.0); ALKALINE PHOSPHATASE 59 U/L (32-104); BUN 29 mg/dL (8-22); CALCIUM 8.7 mg/dL (8.8-10.2); CHLORIDE 93 mmol/L (98-107); COSMO 286; CREATININE 0.8 mg/dL (0.5-0.9); ESTIMATED GFR > 60; GLUCOSE 106 mg/dL (70-104); GOT 25 U/L (10-30); GPT 14 U/L (10-36); POTASSIUM 2.9 mmol/L (3.5-5.1); SODIUM 140 mmol/L (136-145); TCO2 36 mmol/L (25-35); TOTAL PROTEIN 6.3 g/dL (6.3-8.3)
[2019-08-18 05:35] LABS: ALLEN TEST YES; BE 14.1 mmoll (-3.0-3.0); BLOOD TYPE ARTERIAL; HCO3-(ACT) 35.9 mmoll (20.0-26.0); METHB 0.9 % (0.0-1.5); O2(CT) 10.2 mL/dL (15.0-23.0); O2HB 92.2 % (95.0-99.0); PO2(98.6) 59 mmHg (60-100); SAMPLE BLOOD; SAO2 95.5 % (95.0-100.0); THB 7.8 g/dL (11.5-17.4); pH(98.6) 7.49 (7.35-7.45)
[2019-08-18 05:41] LABS: MODALITY BI PAP; PCO2(98.6) 51 mmHg (35-45)
[2019-08-18] MEDS ORDERED: PRILOSEC PO SCH (07:00)
--- NOTE | 2019-08-18 07:07 | Diag Imaging Result Doc PS360 ---
EXAM: CHEST-PORTABLE 08/18/2019 HISTORY: sedation on Mech Vent TECHNIQUE: AP portable at 0458 COMMENT: There is cardiomegaly. There has been some slight improvement in the pulmonary edema in the lung bases compared to 08/17/2019. IMPRESSION: Slightly improved pulmonary edema. Electronically signed by Rubén Leahy 08/18/2019 7:05 AM
[2019-08-18 07:35] LABS: MONO 4 % (1-9); SEGS 96 % (42-75)
[2019-08-18] MEDS: ZYVOX 600 MG/D5W 600 MG/300 ML IVPB IV SCH ×2 (07:38→20:27)
[2019-08-18] MEDS: POTASSIUM CHLORIDE 20% LIQUID PO SCH ×2 (07:49→10:55)
[2019-08-18] MEDS: MYCOSTATIN SUSP PO SCH ×4 (08:19→22:46)
[2019-08-18] MEDS: LASIX IV SCH ×2 (10:15→22:47)
[2019-08-18] MEDS: KLONOPIN PO PRN (12:09)
[2019-08-18] MEDS ORDERED: ZANAFLEX PO PRN (12:28)
[2019-08-18] MEDS ORDERED: KLONOPIN PO SCH (13:00)
--- NOTE | 2019-08-18 13:57 | PROVIDER PROGRESS NOTE ---
Progress Note Dr. Rivas Progress Note/Pulmonary and or critical care Subjective: The patient is sitting on the bedside chair on VM 40% with no acute distress noted. She states she is feeling better. I stress the negative impact of tobacco use on patients lung and emphasize the importance of smoking cessation including second hand smoking exposure. No family at the bedside. Input is appreciated from Dr. Zaragoza and other teams on the case. Objective: Vital Signs: T 98.5 (no fever in last 24 hours), [place] 108, RR 22, BP 143/85 and SaO2 96% on VM 40%. I/O -1673 ml Physical Examination: General: Chronically ill appearing. Lying in bed with no acute distress noted. HEENT: Normocephalic. Trachea midline. Mucosa pink and moist. Chest: Even and unlabored. Symmetrical excursion. Diminished breathing sounds bilaterally. No wheezing noted. CVS: Regular rate and rhythm with S1 and S2 appreciated. Abdomen: Soft. Mildly distended. Mild edema in the lateral abdominal wall. Bowel sounds in all 4 quadrants noted. Extremities: BLE pitting edema 1+. No cyanosis. No clubbing. Neuro: Awake and alert x 3. Speech fluent. Following simple commands. Labs and Radiology: Laboratory Results 08/18/19 08/18/19 08/18/19 04:20 04:20 05:25 WBC 8.34 RBC 3.87 L Hgb 9.5 L Hct 34.1 L MCV 88.1 MCH 24.5 L MCHC 27.9 L RDW Std Deviation 22.4 H Plt Count 176 MPV 11.5 H Immature Gran % (Auto) 0.0 Neut % (Auto) 89.0 H Lymph % (Auto) 3.2 L [place] % (Auto) 6.7 Eos % (Auto) 1.1 Baso % (Auto) 0.0 Immature Gran # (Auto) 0.00 Neut # (Auto) 7.42 H Lymph # (Auto) 0.27 L [place] # (Auto) 0.56 Eos # (Auto) 0.09 Baso # (Auto) 0.00 Segmented Neutrophils 96 H Monocytes 4 Specimen Type ARTERIAL Sample Site R RADIAL pH 7.49 H pCO2 51 H* pO2 59 L HCO3 35.9 H Base Excess 14.1 H Oxyhemoglobin 92.2 L ABG O2 Sat (Calculated) 10.2 L ABG O2 Saturation 95.5 ABG Carboxyhemoglobin 2.60 H ABG Methemoglobin 0.9 Kirk Test YES A-a O2 Difference 162.0 Total Hemoglobin 7.8 L Lactate 1.70 Blood Gas Modality BI PAP Vent Mode BIPAP FiO2 % 40.0 Inspiratory BiPAP 12.0 Expiratory BiPAP 6.0 Sodium 140 Potassium 2.9 L D Chloride 93 L Carbon Dioxide 36 H Anion Gap 11 BUN 29 H Creatinine 0.8 Estimated GFR/1.73 m2 > 60 BUN/Creatinine Ratio 36 Glucose 106 H Calculated Osmolality 286 Calcium 8.7 L Total Bilirubin 1.70 H AST 25 ALT 14 Alkaline Phosphatase 59 Total Protein 6.3 Albumin 3.5 Globulin 2.8 Albumin/Globulin Ratio 1.3 Assessment: Acute on chronic hypoxemic respiratory failure. Intubated on 08/11/19. Extubated on 08/16/19. Pulmonary edema with superimposed pneumonia. CXR this morning shows slightly improved pulmonary edema. CHF exacerbation. EF 38% with diffuse 3 vessel coronary artery disease per echocardiogram on 07/24/19. Advanced COPD with severe exacerbation. Tobacco use and abuse prior to hospitalization. Acute renal failure. Improved. Multiple hospitalization with recurrent pneumonia and recurrent intubation. Prognosis is guarded on short term but on long run there are many comorbid factors. Plan: Continue current treatment and supportive care per admitting and other teams on the case. Supplemental oxygen and BiPAP as needed. Titrate oxygen to patients needs per clinical protocol. Antibiotics, including cefepime and Linezolid. Bronchodilators. IV steroid (tapering down). Diuresis as needed. Emphasize the importance of Tobacco cessation. 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 Appropriate DVT and GI prophylaxis Evaluation time in minutes: 35 minutes.
--- NOTE | 2019-08-18 14:21 | PROGRESS NOTE ---
DATE: 08/18/2019 SUBJECTIVE: Patient has no major complaints. OBJECTIVE: Blood pressure 154/86, heart rate of 116, respiratory rate of 17, temperature 98.5 degrees, 100% on 40%. Cardiovascular: Regular rate and rhythm. Pulmonary: Bilateral breath sounds clear to auscultation. GI: Soft, nontender, nondistended. Bowel sounds were positive. Laboratory Data: White count is 8, hemoglobin and hematocrit 9 and 34, platelets 176,000. PH 7.49, pCO2 of 51 PaO2 of 59. Potassium 2.9. PROBLEM LIST: 1. Acute on chronic respiratory failure in the setting of chronic obstructive pulmonary disease, persistent tobacco use, obesity, congestive heart failure. We will continue to wean oxygen. She seems like she is doing better, chronic obstructive pulmonary disease. 2. Acute systolic heart failure, congestive heart failure exacerbation. We will continue diuretics and follow. Her breath sounds are pretty clear. I do not appreciate rales today. 3. Possible pneumonia. We will continue empiric antibiotics. She is on steroids. She is on linezolid, this will be day 4 and cefepime 6, and continue to follow. DISPOSITION: Pending her clinical status. cc: Jose Luis Zaragoza MD
[2019-08-18 15:28] LABS: INR 1.26
[2019-08-18] MEDS: LOVENOX SUBQ SCH (17:28)
[2019-08-18] MEDS ORDERED: COREG PO SCH (21:00)
[2019-08-18] MEDS: NORCO-5 PO PRN (22:56)
[2019-08-19] MEDS: MAXIPIME 1 GM in NS 50 ML IV SCH ×3 (02:08→18:39)
[2019-08-19] MEDS: DUONEB (A & A) INH SCH ×6 (03:05→23:21)
--- NOTE | 2019-08-19 06:34 | Diag Imaging Result Doc PS360 ---
CHEST-PORTABLE - 08/19/2019 INDICATION: sedation on Mech Vent COMPARISON: 08/18/2019 FINDINGS: Stable cardiomegaly and pulmonary vascular congestion. There is worsening hazy opacification of both lung bases due to any combination of atelectasis, effusion, or infiltrate. IMPRESSION: Worsening bibasilar airspace opacification. Electronically signed by Wan Eddy 08/19/2019 6:32 AM
[2019-08-19 07:39] LABS: EOS# 0.14 X1000 (0.0-0.7); EOS% 2.1 % (0.0-10.0); HEMATOCRIT 31.1 % (37.0-47.0); HEMOGLOBIN 8.5 g/dL (12.0-16.0); LYMPH# 0.84 X1000 (1.2-3.4); LYMPH% 12.8 % (20.5-51.1); MCH 24.6 PG (27-31); MCHC 27.3 g/dL (33-37); MCV 89.9 FL (81-99); MONO# 0.78 X1000 (0.11-0.59); MONO% 11.9 % (1.7-9.3); MPV 11.9 FL (7.4-10.4); NEUT% 73.2 % (42.2-75.2); PLT 165 X1000 (130-400); RBC 3.46 XMIL (4.2-5.4); RDW 22.4 % (11.5-14.5); WBC 6.56 X1000 (4.8-10.8)
[2019-08-19] MEDS ORDERED: NS 250 ML IV ONE (08:14)
[2019-08-19 08:26] LABS: AGAP 10; ALB/GLOB RATIO 1.3; ALBUMIN 3.4 g/dL (3.5-5.0); ALKALINE PHOSPHATASE 55 U/L (32-104); BUN 26 mg/dL (8-22); CALCIUM 8.9 mg/dL (8.8-10.2); CHLORIDE 95 mmol/L (98-107); COSMO 286; CREATININE 0.8 mg/dL (0.5-0.9); ESTIMATED GFR > 60; GLUCOSE 125 mg/dL (70-104); GOT 21 U/L (10-30); GPT 15 U/L (10-36); POTASSIUM 3.7 mmol/L (3.5-5.1); SODIUM 140 mmol/L (136-145); TCO2 35 mmol/L (25-35); TOTAL BILIRUBIN 1.37 mg/dL (0.20-1.00)
[2019-08-19] MEDS: ZYVOX 600 MG/D5W 600 MG/300 ML IVPB IV SCH ×2 (08:34→21:46)
[2019-08-19] MEDS: PLAVIX PO SCH (08:38)
[2019-08-19] MEDS: MYCOSTATIN SUSP PO SCH ×5 (08:38→21:50)
[2019-08-19] MEDS: PROTONIX PO SCH (08:38)
[2019-08-19] MEDS: FERROUS SULFATE PO SCH (08:38)
[2019-08-19] MEDS: PREDNISONE PO SCH (08:38)
[2019-08-19] MEDS: LIPITOR PO SCH (08:39)
[2019-08-19] MEDS: KLONOPIN PO PRN ×2 (08:45→21:47)
[2019-08-19] MEDS ORDERED: COREG PO SCH (09:00)
[2019-08-19] MEDS ORDERED: IMDUR PO SCH (09:00)
[2019-08-19] MEDS: NORCO-5 PO PRN (10:08)
[2019-08-19] MEDS: ALDACTONE PO SCH (14:40)
[2019-08-19] MEDS ORDERED: DUONEB (A & A) INH PRN (15:20)
[2019-08-19] MEDS: LOVENOX SUBQ SCH (17:32)
--- NOTE | 2019-08-19 19:30 | PROVIDER PROGRESS NOTE ---
Progress Note Dr. Rivas Progress Note/Pulmonary and or critical care Subjective: The patient is lying in bed on NC 4L with no acute distress noted. She is definitely more alert today. She is smiling and becomes relatively talkative at this time. She has no complaint at this time. at the bedside with strong smell of tobacco. Input is appreciated from Dr. Zaragoza and other teams on the case. Objective: Vital Signs: T 98.4 (no fever in last 24 hours), SD 84, RR 19, BP 103/60 and SaO2 100% on NC 4L. Physical Examination: General: Chronically ill appearing. Lying in bed with no acute distress noted. HEENT: Normocephalic. Trachea midline. Mucosa pink and moist. Chest: Even and unlabored. Symmetrical excursion. Diminished breathing sounds bilaterally. No wheezing noted. CVS: Regular rate and rhythm with S1 and S2 appreciated. Abdomen: Soft. Mildly distended. Mild edema in the lateral abdominal wall. Bowel sounds in all 4 quadrants noted. Extremities: BLE pitting edema 1+. No cyanosis. No clubbing. Neuro: Awake and alert x 3. Speech fluent. Following simple commands. Labs and Radiology: Laboratory Results 08/19/19 08/19/19 07:23 07:23 WBC 6.56 RBC 3.46 L Hgb 8.5 L Hct 31.1 L MCV 89.9 MCH 24.6 L MCHC 27.3 L RDW Std Deviation 22.4 H Plt Count 165 MPV 11.9 H Immature Gran % (Auto) 0.0 Neut % (Auto) 73.2 Lymph % (Auto) 12.8 L Luce % (Auto) 11.9 H Eos % (Auto) 2.1 Baso % (Auto) 0.0 Immature Gran # (Auto) 0.00 Neut # (Auto) 4.80 Lymph # (Auto) 0.84 L Luce # (Auto) 0.78 H Eos # (Auto) 0.14 Baso # (Auto) 0.00 Sodium 140 Potassium 3.7 D Chloride 95 L Carbon Dioxide 35 Anion Gap 10 BUN 26 H Creatinine 0.8 Estimated GFR/1.73 m2 > 60 BUN/Creatinine Ratio 33 Glucose 125 H Calculated Osmolality 286 Calcium 8.9 Total Bilirubin 1.37 H AST 21 ALT 15 Alkaline Phosphatase 55 Total Protein 6.0 L Albumin 3.4 L Globulin 2.6 Albumin/Globulin Ratio 1.3 Assessment: Acute on chronic hypoxemic respiratory failure. Intubated on 08/11/19. Extubated on 08/16/19. Pulmonary edema with superimposed pneumonia. CXR today shows worsening bibasilar airspace opacification. CHF exacerbation. EF 38% with diffuse 3 vessel coronary artery disease per echocardiogram on 07/24/19. Advanced COPD with severe exacerbation. Tobacco use and abuse prior to hospitalization. Acute renal failure. Multiple hospitalization with recurrent pneumonia and recurrent intubation. Prognosis is guarded on short term but on long run there are many comorbid factors. Plan: Continue current treatment and supportive care per admitting and other teams on the case. Supplemental oxygen and BiPAP as needed. Titrate oxygen to patients needs per clinical protocol. Antibiotics, including cefepime and Linezolid. Bronchodilators. IV steroid (tapering down). Diuresis as needed. Emphasize the importance of Tobacco cessation. Appropriate DVT and GI prophylaxis
--- NOTE | 2019-08-19 19:47 | PROGRESS NOTE ---
DATE: 08/19/2019 SUBJECTIVE: She is looking well. No major complaints. She had an episode this morning where she was less responsive and her blood pressure was low in the 80s, 84/50. It has now come up to 103/60, heart rate 84, respiratory 19, temp 98.4 degrees, 100% on 4 L. She has had a decent urine output here -1600 and positive before that. She has put out 3550, so I am not entirely sure it this may be related to diuretics. She was a bit hypertensive yesterday.Cardiovascular: Regular rate and rhythm. Pulmonary: Clear to auscultation. GI: Was soft, nontender, nondistended. Bowel sounds are positive. White count 6, hemoglobin 8 and hematocrit 31, platelets 165,000. Basic was normal. PROBLEM LIST: 1. Acute on chronic respiratory failure. We will continue treatment and wean oxygen. She has got probably a combination of CHF, COPD and pneumonia. 2. Acute systolic heart failure. I am going to adjust her medications because now she is hypotensive. She is on a slew of medicines, Coreg, Imdur, Aldactone. Curiously, she is not on Lasix. I am going to resume her Coreg and her Aldactone, and she is not on an EDUARD or an ARB, and I do not think she is allergic, so I am not quite sure why that is the case, so she should be a candidate for Entresto, so we will continue to follow. DISPOSITION: Pending clinical status. She has a bed at rehab which may be active as soon as tomorrow. cc: Jose Luis Zaragoza MD
[2019-08-19] MEDS ORDERED: COUMADIN PO SCH (21:00)
[2019-08-19] MEDS: COREG PO SCH (21:48)
[2019-08-20] MEDS: MAXIPIME 1 GM in NS 50 ML IV SCH (03:38)
[2019-08-20] MEDS: DUONEB (A & A) INH SCH ×3 (03:43→11:57)
[2019-08-20 08:31] LABS: EOS# 0.13 X1000 (0.0-0.7); EOS% 1.4 % (0.0-10.0); HEMATOCRIT 35.1 % (37.0-47.0); HEMOGLOBIN 9.7 g/dL (12.0-16.0); IMM GRAN# 0.02 X1000 (0.0-0.04); IMM GRAN% 0.2 % (0.0-0.5); LYMPH# 1.55 X1000 (1.2-3.4); LYMPH% 16.5 % (20.5-51.1); MCHC 27.6 g/dL (33-37); MCV 90.5 FL (81-99); MONO# 0.91 X1000 (0.11-0.59); MONO% 9.7 % (1.7-9.3); MPV 12.6 FL (7.4-10.4); NEUT# 6.78 X1000 (1.4-6.5); NEUT% 72.2 % (42.2-75.2); PLT 187 X1000 (130-400); RBC 3.88 XMIL (4.2-5.4); RDW 22.6 % (11.5-14.5); WBC 9.39 X1000 (4.8-10.8)
[2019-08-20 08:46] LABS: AGAP 16; ALB/GLOB RATIO 1.3; ALBUMIN 3.9 g/dL (3.5-5.0); ALKALINE PHOSPHATASE 61 U/L (32-104); BUN 24 mg/dL (8-22); CALCIUM 9.1 mg/dL (8.8-10.2); CHLORIDE 96 mmol/L (98-107); COSMO 290; CREATININE 0.8 mg/dL (0.5-0.9); ESTIMATED GFR > 60; GLUCOSE 114 mg/dL (70-104); GOT 34 U/L (10-30); GPT 18 U/L (10-36); POTASSIUM 4.1 mmol/L (3.5-5.1); SODIUM 143 mmol/L (136-145); TCO2 31 mmol/L (25-35); TOTAL BILIRUBIN 1.09 mg/dL (0.20-1.00)
[2019-08-20] MEDS ORDERED: LASIX PO SCH (09:00)
--- NOTE | 2019-08-20 09:04 | Diag Imaging Result Doc PS360 ---
CHEST-PORTABLE - 08/20/2019 INDICATION: sedation on Mech Vent COMPARISON: 08/19/2019 FINDINGS: There has been significant improvement in aeration of both lower lobes, with sharp visualization of both hemidiaphragms. Stable cardiomegaly and diffuse pulmonary vascular congestion. There is probably stable interstitial background pulmonary edema. IMPRESSION: Significant improvement in aeration of both lower lobes. Electronically signed by Wan Eddy 08/20/2019 9:02 AM
[2019-08-20 09:05] LABS: ANISOCYTOSIS 2+; HYPOCHROM 1+; LYMPHS 24 % (21-51); POIKILOCYTOSIS 2+; SEGS 76 % (42-75)
[2019-08-20] MEDS: ALDACTONE PO SCH (09:53)
[2019-08-20] MEDS: PREDNISONE PO SCH (09:53)
[2019-08-20] MEDS: PLAVIX PO SCH (09:53)
[2019-08-20] MEDS: LIPITOR PO SCH (09:53)
[2019-08-20] MEDS: PROTONIX PO SCH (09:53)
[2019-08-20] MEDS: FERROUS SULFATE PO SCH (09:53)
[2019-08-20] MEDS: KLONOPIN PO PRN (09:53)
[2019-08-20] MEDS: MYCOSTATIN SUSP PO SCH (09:54)
[2019-08-20] MEDS: ZYVOX 600 MG/D5W 600 MG/300 ML IVPB IV SCH (09:57)
[2019-08-20] MEDS ORDERED: NORCO-5 PO PRN (10:04)
[2019-08-20] MEDS: COREG PO SCH (10:15)
[2019-08-20 11:43] VITALS: BP 108/57
--- NOTE | 2019-08-20 12:29 | DISCHARGE SUMMARY ---
ADMISSION DATE: 08/11/2019 DISCHARGE DATE: 08/20/2019 PRIMARY CARE PHYSICIAN: Dr. Alina Balderrama CONSULTATIONS: Pulmonology. ADMISSION DIAGNOSES: 1. An acute hypoxemic respiratory failure requiring intubation. 2. Pulmonary edema with possible superimposed pneumonia. 3. History of congestive heart failure with possible exacerbation. 4. Advanced chronic obstructive pulmonary disease, possible exacerbation. 5. History of tobacco use and abuse. DISCHARGE DIAGNOSES: 1. Acute on chronic respiratory failure, improved, extubated, now O2 via nasal cannula. 2. An acute systolic congestive heart failure, improved. SUMMARY OF FINDINGS: This is a 58-year-old female, very well-known and a frequent flyer to our hospital who presented in respiratory distress, was intubated in the emergency room, so unable to give any history at the time she was admitted. The was at the bedside stating she had difficulty breathing. He went to check on her. Her oxygen saturation was in the 70s. He went up on her O2 at home from 4 to 6 L and a couple minutes later she showed remarkable signs of distress, so she was brought to the emergency room. She was immediately intubated, admitted to the Intensive Care Unit, placed on IV antibiotics, steroids, diuretics, and we consulted pulmonology. She has improved and has been able to be extubated, now saturating 98% on nasal cannula at 4 L, and can safely be discharged at this time. DISCHARGE MEDICATIONS: Atorvastatin 80 mg p.o. daily, carvedilol 3.125 mg p.o. b.i.d., Klonopin 0.5 mg p.o. b.i.d. p.r.n., Plavix 75 mg p.o. daily, ferrous sulfate 325 mg p.o. daily, Lasix 40 mg p.o. daily, [place] 5 mg 1 p.o. q.6 hours p.r.n., nicotine patch transdermally daily p.r.n., pantoprazole 40 mg p.o. daily, prednisone 20 mg p.o. daily, Coumadin 5 mg p.o. daily, albuterol nebs q.4-6 hours p.r.n., cefdinir 300 mg p.o. b.i.d. #14 with no refills for 7 days, losartan 25 mg p.o. daily, prednisone 20 mg p.o. daily, spironolactone 12.5 mg p.o. daily, and Zanaflex 4 mg p.o. b.i.d. p.r.n. FOLLOWUP: She will need to follow up with her primary care physician and call their office to make an appointment. TIME SPENT: 35 minutes. Dictated by RALPH Bailey for Jose Luis Zaragoza MD cc: RALPH Bailey MD Jyothi Tummala
--- NOTE | 2019-08-20 23:44 | DISCHARGE SUMMARY ---
ADMISSION DATE: 08/11/2019 DISCHARGE DATE: 08/20/2019 SUBJECTIVE: Patient has no major complaints. OBJECTIVE: Blood pressure 108/57, heart rate of 100, respiratory rate of 20, temperature 97.5 degrees, 98% on 4 L. Cardiovascular: Regular rate and rhythm. Pulmonary: Bilateral breath sounds clear to auscultation. GI: Soft, nontender, nondistended. Bowel sounds are positive. The patient is doing well. I think she is stabilized. X-ray looks improved. Anticipate discharge today to rehab and we will continue to follow closely. Please note discharge summary per Abigail Betancourt. cc: Jose Luis Zaragoza MD
== END 2019-08-20 14:46 | DRG 207 ==
LOC: EDBD → ED 15:34 → MERGE 19:59 → SUATTDRO 19:59 → EDIPHOLD 19:59 → ICU 08-12 01:52 → 3N 08-18 16:18
PROVIDERS: ATTEND Internal Medicine